=== PATIENT | male | born 1960 | race Caucasian/White ===

== ENCOUNTER 2016-12-31 13:16 | Inpatient (IN) | payer MEDICARE, OTHER ==
[~2016-12-31] VITALS: Ht 188 cm; Wt 98.8 kg
[~2016-12-31 13:16] MED LIST: ASPI81TA82 PO; COLY4000S PO; GLYB5TAB3 PO; LISI-357 PO; PREG25 PO; SERO400T PO; Z.0.WALKERFRONT
[2016-12-31 13:18] VITALS: BP 84/54; PULSE 138; RESP 20; TEMP 97.7; O2SAT 92
[2016-12-31 14:52] VITALS: BP 101/59; PULSE 131; RESP 18; O2SAT 100
--- NOTE | 2016-12-31 14:56 | PD ---
Physical Exam Date Seen by Provider: Dec 31, 2016 Time Seen by Provider: 14:53 Narrative 56 YOWM C/O NO VOIDING URINE OR STOOL FOR 2 DAYS. NO ABD PAIN. NO F/C. INCREASED HR AND LOW BP. AWAITING BED PLACEMENT Data Data Last Documented VS Vital Signs Date Time Temp Pulse Resp B/P Pulse Ox O2 Delivery O2 Flow Rate FiO2 12/31/16 13:18 97.7 138 20 84/54 92 Room Air [facility] Medical Record Reviewed: Yes Supervised Visit with KENDRICK: Yes Christopher Ochoa Dec 31, 2016 14:56
[2016-12-31 19:44] VITALS: BP 131/75; PULSE 126; RESP 20; TEMP 98.4; O2SAT 95
[2016-12-31] MEDS ORDERED: SODIUM CHLOR 0.9% 1000 ML INJ 1,000 ML IV ONE ×2 (19:45→21:00)
--- NOTE | 2016-12-31 19:47 | RADRPT ---
EXAM DATE/TIME: 12/31/2016 19:25 [facility] COMPARISON: ABDOMEN FLAT & UPRIGHT, June 01, 2016, 14:43. INDICATIONS : Constipation, obstruction. MEDICAL HISTORY : None. SURGICAL HISTORY : Splenectomy. ENCOUNTER: Initial ACUITY: 3 days PAIN SCORE: 0/10 LOCATION: Bilateral abdomen. FINDINGS: The bowel gas is nonspecific. There are no signs of obstruction or free air for technique. No defini te calcified stones are identified for technique. Moderate stool is present throughout the colon. The re are old healed rib fractures bilaterally. CONCLUSION: Unremarkable study except for stool. Lela Stephens MD on December 31, 2016 at 19:44 Board Certified Radiologist. This report was verified electronically.
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
--- NOTE | 2016-12-31 20:10 | RADRPT ---
EXAM DATE/TIME: 12/31/2016 19:41 [facility] COMPARISON: CHEST SINGLE AP, May 26, 2016, 20:21. INDICATIONS : Free air MEDICAL HISTORY : Hypertension. Diabetes mellitus type II. SURGICAL HISTORY : None. ENCOUNTER: Initial ACUITY: 4 - 6 days PAIN SCORE: 4/10 LOCATION: chest FINDINGS: The lungs are clear without infiltrate, nodule, or mass except for slight atelectasis in the left iker g base. There is no appreciable pleural effusion for technique. Heart and mediastinum are unremarka ble. There are old healed rib fractures in the left chest. CONCLUSION: Slight linear atelectasis left lung base. Lela Stephens MD on December 31, 2016 at 20:08 Board Certified Radiologist. This report was verified electronically.
[2016-12-31 20:17] VITALS: O2SAT 98
[2016-12-31 20:25] LABS: AUTOMATED NEUTROPHIL # 6.4 TH/MM3 (1.8-7.7); BASOPHIL # 0.1 TH/MM3 (0-0.2); BASOPHIL % 0.5 % (0.0-2.0); EOSINOPHIL # 0.5 TH/MM3 (0-0.4); EOSINOPHIL % 4.8 % (0.0-4.0); HEMO FLAGS DIFF FINAL; LYMPH % 22.5 % (9.0-44.0); LYMPHOCYTE # 2.3 TH/MM3 (1.0-4.8); MEAN CELL VOLUME 98.7 FL (80.0-100.0); MEAN CORPUSCULAR HGB CONC 35.5 % (32.0-36.0); MONO % 10.1 % (0.0-8.0); NEUT % 62.1 % (16.0-70.0); PLATELET COUNT 255 TH/MM3 (150-450); RED BLOOD COUNT 3.35 MIL/MM3 (4.50-5.90); RED CELL DISTRIBUTION WIDTH 13.4 % (11.6-17.2); WHITE BLOOD COUNT 10.3 TH/MM3 (4.0-11.0)
[2016-12-31 20:36] LABS: BLOOD, URINE NEG (NEG); COMMENT (UR) CULT NOT INDICATED; CULTURE IF INDICATED CULT NOT INDICATED; GLUCOSE,URINE 70 mg/dL (NEG); KETONE, URINE NEG (NEG); NITRITE,URINE NEG (NEG); SQUAMOUS EPITHELIAL CELL URINE <1 /hpf (0-5); URINE COLOR YELLOW (YELLW/STRAW)
[2016-12-31 20:47] LABS: APTT (PATIENT) 33.1 SEC (24.3-30.1); PROTHROMBIN TIME - PATIENT 10.5 SEC (9.8-11.6)
[2016-12-31 20:53] LABS: ANION GAP 14 MEQ/L (5-15); AST (GOT) 30 U/L (15-37); BICARBONATE 22.9 MEQ/L (21.0-32.0); BLOOD UREA NITROGEN 35 MG/DL (7-18); CHLORIDE 94 MEQ/L (98-107); GLOMERULAR FILTRATION RATE 13 ML/MIN (>89); MAGNESIUM 1.8 MG/DL (1.5-2.5); POTASSIUM 4.3 MEQ/L (3.5-5.1); SODIUM (NA) 131 MEQ/L (136-145)
[2016-12-31 21:08] LABS: ALKALINE PHOSPHATASE 99 U/L (45-117); ALT (GPT) 26 U/L (12-78); CREATINE KINASE 1147 U/L (39-308); TOTAL BILIRUBIN ADULT 0.4 MG/DL (0.2-1.0)
[2016-12-31 21:21] LABS: CKMB 20.6 NG/ML (0.5-3.6)
[2016-12-31] MEDS ORDERED: JANU50TA8 PO (21:39)
[2016-12-31] MEDS ORDERED: ASPI1TAB69 PO (21:39)
[2016-12-31] MEDS ORDERED: MORP1CAP64 PO (21:39)
[2016-12-31] MEDS ORDERED: PREG300 PO (21:39)
[2016-12-31] MEDS ORDERED: GLYB5TAB3 PO (21:39)
[2016-12-31] MEDS ORDERED: OXYC30TA PO (21:39)
[2016-12-31] MEDS ORDERED: MIRA33504 PO (21:39)
[2016-12-31] MEDS ORDERED: LISI-519 PO (21:39)
[2016-12-31] MEDS ORDERED: NALOXONE HCL 0.4 MG/ML AMP IV PRN (21:45)
[2016-12-31] MEDS ORDERED: SODIUM CHLORIDE 0.9% FLUSH 10 ML FLUSH IV FLUSH PRN (21:45)
[2016-12-31] MEDS: SODIUM CHLOR 0.9% 1000 ML INJ 1,000 ML IV SCH (22:00)
[2016-12-31 22:13] LABS: LACTIC ACID GHOST NOT REPORTABLE
--- NOTE | 2016-12-31 23:28 | RADRPT ---
EXAM DATE/TIME: 12/31/2016 22:46 [facility] COMPARISON: No previous studies available for comparison. INDICATIONS : Unable to urinate for two days ORAL CONTRAST: No oral contrast ingested. RADIATION DOSE: 12.02 CTDIvol (mGy) MEDICAL HISTORY : Cardiovascular disease. Diabetes mellitus type 2. Gastroesophageal reflux disease. SURGICAL HISTORY : Splenectomy. ENCOUNTER: Initial ACUITY: 2 days PAIN SCALE: 8/10 LOCATION: Bilateral flank TECHNIQUE: Volumetric scanning of the abdomen and pelvis was performed. Using automated exposure control and ad justment of the mA and/or kV according to patient size, radiation dose was kept as low as reasonably achievable to obtain optimal diagnostic quality images. FINDINGS: LOWER LUNGS: Mild linear atelectasis within the lung bases. No infiltrate or effusion. LIVER: Homogeneous density without lesion. There is no dilation of the biliary tree. This suspected solitar y calcified gallstone is seen. No dilatation of the gallbladder. No pericholecystic fluid. SPLEEN: The spleen is surgically absent. PANCREAS: The pancreatic head and adjacent body normal. The tail is felt surgically absent. KIDNEYS: Normal in size and shape. There is no mass, stone, or hydronephrosis. ADRENAL GLANDS: There is a 4.2 cm fat containing mass involving the left adrenal gland. Right adrenal gland is normal . VASCULAR: There is no aortic aneurysm. BOWEL/MESENTERY: The stomach, small bowel, and colon demonstrate no acute abnormality. There is no free intraperitone al air or fluid. Scattered colonic diverticuli without acute inflammation. ABDOMINAL WALL: Within normal limits. RETROPERITONEUM: There is no lymphadenopathy. BLADDER: No wall thickening or mass. REPRODUCTIVE: Within normal limits. INGUINAL: There is no lymphadenopathy or hernia. MUSCULOSKELETAL: An intramedullary raquel is partially seen involving the right femur. CONCLUSION: 1. No acute abnormality to explain the patient's pain. 2. Colonic diverticulosis. No acute inflammation. 3. Suspected small calcified gallstone. The gallbladder is nondilated. 4. 4.2 cm left adrenal gland adenoma. Issa Wills Jr., MD on December 31, 2016 at 23:21 Board Certified Radiologist. This report was verified electronically.
[2017-01-01] VITALS (11 sets, daily range): BP systolic 98–127; BP diastolic 58–83; PULSE 68–137; RESP 18–24; TEMP 98–99.8; O2SAT 90–98
[2017-01-01 02:35] LABS: AUTOMATED NEUTROPHIL # 7.5 TH/MM3 (1.8-7.7); BASOPHIL # 0.1 TH/MM3 (0-0.2); BASOPHIL % 0.5 % (0.0-2.0); EOSINOPHIL # 0.5 TH/MM3 (0-0.4); EOSINOPHIL % 4.2 % (0.0-4.0); HEMATOCRIT 33.3 % (39.0-51.0); HEMO FLAGS DIFF FINAL; LYMPH % 24.9 % (9.0-44.0); LYMPHOCYTE # 3.1 TH/MM3 (1.0-4.8); MEAN CELL VOLUME 99.8 FL (80.0-100.0); MONO % 9.7 % (0.0-8.0); NEUT % 60.7 % (16.0-70.0); PLATELET COUNT 239 TH/MM3 (150-450); RED BLOOD COUNT 3.34 MIL/MM3 (4.50-5.90); RED CELL DISTRIBUTION WIDTH 13.5 % (11.6-17.2); WHITE BLOOD COUNT 12.4 TH/MM3 (4.0-11.0)
[2017-01-01 02:58] LABS: BICARBONATE 23.8 MEQ/L (21.0-32.0); POTASSIUM 4.4 MEQ/L (3.5-5.1)
[2017-01-01 03:16] LABS: CKMB 14.1 NG/ML (0.5-3.6)
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
[2017-01-01] MEDS: CEFEPIME INJ 2,000 MG in SODIUM CHLORIDE 0.9% INJ 100 ML IV SCH ×2 (05:29→16:07)
--- NOTE | 2017-01-01 05:33 | RADRPT ---
EXAM DATE/TIME: 01/01/2017 04:49 [facility] COMPARISON: FOOT LEFT COMPLETE ([id number]), February 07, 2016, 19:14. INDICATIONS : Left foot pain and swelling. MEDICAL HISTORY : Diabetes mellitus type II. SURGICAL HISTORY : None. ENCOUNTER: Initial ACUITY: 3 days PAIN SCORE: 4/10 LOCATION: Left foot. FINDINGS: 3 views of the foot show prior amputation involving the middle and distal phalanges of the second toe . No fracture or dislocation. No cortical destruction. Soft tissues are unremarkable with exception o f calcified atherosclerotic plaque. CONCLUSION: No acute abnormality. Prior left toe amputation. Issa Wills Jr., MD on January 01, 2017 at 5:30 Board Certified Radiologist. This report was verified electronically.
[2017-01-01] MEDS ORDERED: GLUCAGON 1 MG/ML VIAL OTHER PRN (06:30)
[2017-01-01] MEDS ORDERED: DEXTROSE 50% IN WATER 50 ML VIAL(D50) IV PUSH PRN (06:30)
[2017-01-01] MEDS: SODIUM CHLORIDE 0.9% FLUSH 10 ML FLUSH IV FLUSH SCH ×2 (07:59→21:00)
[2017-01-01] MEDS: SODIUM CHLOR 0.9% 1000 ML INJ 1,000 ML IV SCH ×2 (07:59→11:14)
[2017-01-01] MEDS: ASPIRIN EC 81 MG TABEC PO SCH (07:59)
[2017-01-01] MEDS ORDERED: PREGABALIN 100 MG CAP PO SCH (09:00)
[2017-01-01] MEDS ORDERED: LISINOPRIL 5 MG TAB PO SCH (09:00)
[2017-01-01] MEDS: PREGABALIN 100 MG CAP PO SCH (10:33)
--- NOTE | 2017-01-01 10:51 | EKG ---
Date Performed: 12/31/2016 Time Performed: 19:49:24 PTAGE: 56 years EKG: SINUS TACHYCARDIA NONSPECIFIC T-WAVE ABNORMALITY Compared to prior tracing, the patient is now tachycardic. ABNORMAL ECG PREVIOUS TRACING : 05/26/2016 21.00 DOCTOR: Joana Ramirez Interpretating Date/Time 01/01/2017 10:46:33
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
[2017-01-01 11:09] LABS: CKMB 5.7 NG/ML (0.5-3.6)
[2017-01-01] MEDS: TAMSULOSIN HCL 0.4 MG CAP PO SCH (11:13)
--- NOTE | 2017-01-01 11:56 | HHI.PR ---
Addendum to Inpatient Note Addendum Reason: Additional Documentation Additional Information Patient states he feels better, denies chest pain, shortness of breath. Patient has had a low-grade temp of 99.8. Nurse states the patient's oxygen saturation goes down into the 80s when not on oxygen. On exam patient is awake and oriented 3, nonacute distress. Lungs are clear to auscultation bilaterally , S1 and S2 present with regular rate and rhythm, no murmur, rubs or Gallops. Left foot looks more swollen when compared to the right foot. There is a puncture wound on the left heel which at the moment is not draining any pus. Assessment and plan. 1. Sepsis: Patient with tachycardia and leukocytosis of 12.4 and a temp of 99.8 , puncture wound on the left heel which has been reportedly draining. Follow- up wound culture which is pending, blood cultures negative 1 Source most likely left foot. ID consulted. Follow-up recommendations. 2. Left heel wound. Consult wound care. Podiatry consulted. Follow-up recommendations. I will order a left foot MRI to rule out osteomyelitis. 3. Rhabdomyolysis: CK improving and trending down, continue IV fluids. 4. Hyponatremia: Likely hypovolemic hyponatremia sodium 131, trending up to 134. Continue IV normal saline. 5. Acute kidney injury: Possibly a combination of postobstructive and due to rhabdomyolysis, creatinine is trending up from 4.86-5.06, continue IV fluid administration. Continue to monitor BUN/creatinine. Continue Chamorro catheter. 6. Low-grade Fever: Patient had a MAXIMUM TEMPERATURE of 99.8. Will Rx Tylenol. 7. Hypoxemia: Chest x-ray on admission showed a slight linear atelectasis of the left lung base. Supplemental oxygen to keep oxygen saturation 92%. If hypoxemia continues then will order a VQ scan. 8. Lactic acidosis: Lactic acid 2.8 and elevated on admission. I'll trending down. Continue IV fluids. 9. Acute urinary retention: Appreciate urology consultation. Continue Chamorro catheter and will start voiding trials once creatinine is back to normal. 10. Left leg swelling: I will check venous Doppler of the left lower extremity to rule out DVT. Nathaniel Yo MD Jan 01, 2017 11:56
[2017-01-01] MEDS: HEPARIN SODIUM - SQ 10,000 UNITS/ML VIAL SQ SCH ×2 (13:44→21:27)
--- NOTE | 2017-01-01 14:44 | RADRPT ---
EXAM DATE/TIME: 01/01/2017 13:26 [facility] COMPARISON: No previous studies available for comparison. INDICATIONS : Left leg swelling. MEDICAL HISTORY : Hypertension. Gastroesophageal reflux disease. Neuropathy. Urinary retention. Arthritis. Diabetes . PTSD. SURGICAL HISTORY : Splenectomy. Mandible surgery. Chest tube. Right leg surgery. Right wrist surgery. Left knee surge ry. Neck surgery. Bilateral ankle surgery. ENCOUNTER: Initial ACUITY: 1 day PAIN SCORE: 0/10 LOCATION: Left TECHNIQUE: Venous ultrasound of the leg was performed from the inguinal ligament to the proximal calf. Real-woo e, color Doppler and spectral tracing, compression and augmentation techniques were used. FINDINGS: There is normal compressibility of the deep venous system from the inguinal region to the proximal ca lf. No echogenic clot is seen in the lumen of the common femoral, femoral, popliteal, and posterior tibial veins. There is a normal response of the venous system to proximal and distal augmentation an d respiration. CONCLUSION: Normal examination. Pk Ricks MD on January 01, 2017 at 14:42 Board Certified Radiologist. This report was verified electronically.
[2017-01-01] MEDS: COLLAGENASE OINT 30 GM TUBE TOPICAL SCH (19:15)
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
--- NOTE | 2017-01-01 20:48 | MB ---
cc: CHANTAL MELENDEZ DPM DATE OF CONSULTATION 01/01/17 CHIEF COMPLAINT Left heel ulceration HISTORY OF PRESENT ILLNESS Mr. Israel is a pleasant 56-year-old diabetic male patient. He is admitted to the ER at [facility] this morning for the foot wound. He states that it started at about seven weeks ago. He was on antibiotics for two weeks and just finished them two days ago but notes increase drainage. He states that he sees Dr. Francis Leblanc who has debrided the area and gotten the wound much smaller, but it has not ever been completely healed since it began. The patient admits that he has difficulty avoid putting weight on it. She also admits to having difficulty controlling his glucose levels. He denies any nausea, vomiting, fever, headaches or chills. PAST MEDICAL HISTORY 1. Diabetes, 2. Hypertension, 3. COPD, 4. History of psychiatric disorder 5. History of alcohol abuse. PAST SURGICAL HISTORY 1. Splenectomy 2. Mandible surgery 3. Orthopedic surgery to the right leg, right wrist, left knee and neck. 4. Collapsed lung. MEDICATIONS Please see list. ALLERGIES TORADOL. FAMILY HISTORY Noncontributory SOCIAL HISTORY The patient smokes a half pack of cigarettes per day and drinks 2-3 alcoholic drinks per day. Denies any illicit drug abuse and states that he rents a house with a friend. VITAL SIGNS: Temperature is 98.0, pulse 110, blood pressure 107/58, pulse ox 98% O2 on room air. LABORATORY DATA White count is 12.4, hemoglobin 11.7, hematocrit 33.3, platelets 239. INR 1.0. Chemistry - Sodium is 134, potassium 4.4, chloride 100, carbon dioxide 23.8, BUN 38, creatinine 5.06, glucose 131. Wound cultures is pending. Blood culture is pending. IMAGING STUDIES X-rays did not show any gas in the soft tissue or signs of cortical erosion at the calcaneus. MRI is pending. PHYSICAL EXAMINATION On physical exam, the patient does have palpable pulses. Cap fill time less than 3 seconds. Gross sensation is impaired. Biomechanics are unremarkable. Right foot is unremarkable. Left posterior plantar heel has a wound of approximately 0.8 cm x 0.8 cm x 0.4 cm. No exposed bone. Hypertrophic borders, fibro granular base. No active drainage. No malodor. ASSESSMENT/PLAN 1. Left foot chronic ulceration 2. MRI pending to rule out osteomyelitis. 3. Wound cultures pending. 4. Daily dressing changes with Santyl ordered. 5. Physical therapy ordered to help reduce weightbearing pressure to the area 6. I have little suspicion for osteomyelitis at this time. I do not suspect patient will need any surgical intervention. However, we will follow the MRI and cultures closely. Thank you for this consultation. Chantal ALAS/ /7:02 PM /8:36 PM FERNIE
[2017-01-01] MEDS ORDERED: LORazepam 2 MG TAB PO PRN (22:30)
[2017-01-01] MEDS ORDERED: FLUMAZENIL 0.5 MG/5 ML VIAL IV PUSH PRN (22:30)
[2017-01-01] MEDS ORDERED: LORazepam 2 MG/ML VIAL IV PUSH PRN ×3 (22:30)
[2017-01-01] MEDS ORDERED: LORazepam 1 MG TAB PO PRN (22:30)
[2017-01-01] MEDS: LORazepam 2 MG/ML VIAL IV PUSH PRN (22:59)
--- NOTE | 2017-01-01 23:17 | RADRPT ---
EXAM DATE/TIME: 01/01/2017 20:03 [facility] COMPARISON: MRI FOOT LEFT W & W/O CONTRAST, February 08, 2016, 9:23. FOOT LEFT COMPLETE ([id number]), January 01, 2017, 4: 49. INDICATIONS : Osteomyelitis. Left heel ulcer for 7 months. MEDICAL HISTORY : Diabetes mellitus type 2. Renal insufficiency. SURGICAL HISTORY : Yogesh in right femur. ENCOUNTER: [facility] ACUITY: 7-11 months PAIN SCORE: 4/10 LOCATION: Left heel. TECHNIQUE: Multiplanar, multisequence MRI examination was performed without contrast. FINDINGS: There is subcutaneous soft tissue edema about the medial and lateral aspect of the ankle extending to the dorsum of the forefoot and superficial to the Achilles tendon. No drainable fluid collections s een. There is T1 and T2 prolongation in the distal 4th metatarsus involving the metaphysis and epiph ysis. No surrounding soft tissue edema, but there is some soft tissue thickening about the metatarsa l phalangeal joint. No signal abnormality seen in the marrow of the other osseous structures.. No a bnormal signal within the substance of the Achilles tendon or the medial or lateral ankle tendons. CONCLUSION: 1. Prominent subcutaneous soft tissue edema about the foot and ankle. 2. Abnormal signal in the distal metatarsal head of the 4th digit, characterized by T1 and T2 prolong ation. Differential considerations include healing fracture and osteomyelitis. 3. Probable Aburto's neuroma in the interspace between the distal 2nd and 3rd metatarsal bones. Issa Christiansen MD on January 01, 2017 at 23:08 Board Certified Radiologist. This report was verified electronically.
--- NOTE | 2017-01-01 23:19 | RADRPT ---
EXAM DATE/TIME: 01/01/2017 20:03 [facility] COMPARISON: No previous studies available for comparison. INDICATIONS : Osteomyelitis. Left heel ulcer for 7 months. MEDICAL HISTORY : Diabetes mellitus type 2. Renal insufficiency. SURGICAL HISTORY : Yogesh in right femur. ENCOUNTER: [facility] ACUITY: 7-11 months PAIN SCORE: 4/10 LOCATION: Left leg. TECHNIQUE: Multiplanar multisequence MRI examination of the lower leg was performed without contrast. FINDINGS: There is mild soft tissue edema in the subcutaneous tissues of the distal one third of the leg. No a bnormal signal within the muscles of the leg. Normal signal in the marrow of the tibia and fibula. CONCLUSION: Subcutaneous soft tissue edema distal leg. No evidence of osteomyelitis of the tibia or fibula. Issa Christiansen MD on January 01, 2017 at 23:16 Board Certified Radiologist. This report was verified electronically.
[2017-01-02] VITALS (10 sets, daily range): BP systolic 81–129; BP diastolic 53–71; PULSE 105–133; RESP 14–22; TEMP 99.3–101.8; O2SAT 90–100
[2017-01-02] MEDS: HEPARIN SODIUM - SQ 10,000 UNITS/ML VIAL SQ SCH ×3 (06:35→20:37)
[2017-01-02 07:45] LABS: AUTOMATED NEUTROPHIL # 11.8 TH/MM3 (1.8-7.7); BASOPHIL # 0.1 TH/MM3 (0-0.2); BASOPHIL % 0.4 % (0.0-2.0); EOSINOPHIL % 0.2 % (0.0-4.0); HEMATOCRIT 30.7 % (39.0-51.0); HEMO FLAGS DIFF FINAL; LYMPH % 12.4 % (9.0-44.0); LYMPHOCYTE # 1.8 TH/MM3 (1.0-4.8); MEAN CORPUSCULAR HEMOGLOBIN 34.3 PG (27.0-34.0); MEAN CORPUSCULAR HGB CONC 34.6 % (32.0-36.0); MONO % 6.1 % (0.0-8.0); NEUT % 80.9 % (16.0-70.0); PLATELET COUNT 236 TH/MM3 (150-450); RED CELL DISTRIBUTION WIDTH 13.5 % (11.6-17.2); WHITE BLOOD COUNT 14.6 TH/MM3 (4.0-11.0)
[2017-01-02 08:22] LABS: ALKALINE PHOSPHATASE 82 U/L (45-117); ALT (GPT) 21 U/L (12-78); ANION GAP 11 MEQ/L (5-15); AST (GOT) 38 U/L (15-37); BICARBONATE 20.7 MEQ/L (21.0-32.0); BLOOD UREA NITROGEN 45 MG/DL (7-18); CHLORIDE 101 MEQ/L (98-107); GLOMERULAR FILTRATION RATE 10 ML/MIN (>89); MAGNESIUM 1.8 MG/DL (1.5-2.5); POTASSIUM 5.1 MEQ/L (3.5-5.1); SODIUM (NA) 133 MEQ/L (136-145); TOTAL BILIRUBIN ADULT 0.6 MG/DL (0.2-1.0)
[2017-01-02] MEDS: SODIUM CHLORIDE 0.9% FLUSH 10 ML FLUSH IV FLUSH SCH ×2 (08:25→20:07)
[2017-01-02] MEDS: PREGABALIN 100 MG CAP PO SCH (08:25)
[2017-01-02] MEDS: ASPIRIN EC 81 MG TABEC PO SCH (08:25)
[2017-01-02] MEDS: TAMSULOSIN HCL 0.4 MG CAP PO SCH (08:25)
[2017-01-02] MEDS: SODIUM CHLOR 0.9% 1000 ML INJ 1,000 ML IV SCH ×3 (08:26→21:08)
[2017-01-02] MEDS: COLLAGENASE OINT 30 GM TUBE TOPICAL SCH (08:59)
--- NOTE | 2017-01-02 09:27 | HHI.PR ---
Subjective Patient symptoms today Pt alert and awake; no complaints. Objective Vital Signs Vital Signs Date Time Temp Pulse Resp B/P Pulse Ox O2 Delivery O2 Flow Rate FiO2 01/02/17 08:07 101.8 133 22 115/60 92 01/01/17 20:00 99.4 137 20 125/83 90 01/01/17 18:11 Nasal Cannula 3.00 01/01/17 16:00 98.0 110 18 107/58 98 01/01/17 14:15 94 Nasal Cannula 3.00 01/01/17 12:05 98.9 120 18 98/64 94 Intake & Output 01/02/17 01/02/17 07:00 19:00 Output Total 400 ml Balance -400 ml Output Urine Total 400 ml Result Diagram: 01/02/1771901/02/17719 Objective Remarks Abd:soft,nt,nt Saunders: clear urine Medications and IVs Current Medications Medications (Trade) Dose Ordered Sig/Rip Route Start Time Stop Time Status Last Admin (NS 1000 ml Inj) 1,000 ml @ 100 mls/hr Q10H IV 12/31/16 22:00 01/02/17 08:26 (NS Flush) 2 ml UNSCH PRN IV FLUSH 12/31/16 21:45 (NS Flush) 2 ml BID IV FLUSH 01/01/17 09:00 01/02/17 08:25 (Narcan Inj) 0.4 mg UNSCH PRN IV 12/31/16 21:45 (Ecotrin Ec) 81 mg DAILY PO 01/01/17 09:00 01/02/17 08:25 (Lyrica) 200 mg DAILY PO 01/01/17 09:00 01/02/17 08:25 (D50w (Vial) Inj) 25 ml UNSCH PRN IV PUSH 01/01/17 06:30 (Glucagon Inj) 1 mg UNSCH PRN OTHER 01/01/17 06:30 (Heparin Inj) 5,000 units Q8HR SQ 01/01/17 14:00 01/02/17 06:35 (Flomax) 0.4 mg DAILY PO 01/01/17 11:00 01/02/17 08:25 (Santyl Oint) 1 applic DAILY TOPICAL 01/01/17 19:15 01/02/17 08:59 (Romazicon Inj) 0.2 mg Q1M PRN IV PUSH 01/01/17 22:30 (Ativan) 1 mg Q4H PRN PO 01/01/17 22:30 (Ativan Inj) 1 mg Q4H PRN IV PUSH 01/01/17 22:30 (Ativan) 2 mg Q2H PRN PO 01/01/17 22:30 (Ativan Inj) 2 mg Q2H PRN IV PUSH 01/01/17 22:30 01/01/17 22:59 (Ativan Inj) 2 mg Q1H PRN IV PUSH 01/01/17 22:30 (Ativan Inj) 2 mg Q15M PRN IV PUSH 01/01/17 22:30 Assessment and Plan Assessment and Plan 56-year-old male admitted with urinary retention and acute renal failure. Maintain Saunders catheter for now and continue with IV fluids. We'll start Flomax 0.4 mg by mouth daily at bedtime for mild symptoms of outlet obstruction. Void trial once his creatinine baseline. Thank you for the consult and for allowing me to precipitate in the care this patient. 01/02 56 y.o male admitted with ARF and AUR with rhabdomyolysis Continue IVF ARF worsening with creatine up to 5.6 today Maintain saunders catheter Continue Flomax Void trial after creatinine normalizes Nikko Parsons DO Jan 02, 2017 09:27
[2017-01-02] MEDS: LORazepam 2 MG/ML VIAL IV PUSH PRN ×2 (09:56→13:00)
--- NOTE | 2017-01-02 14:48 | RADRPT ---
EXAM DATE/TIME: 01/02/2017 14:07 [facility] COMPARISON: CT CERVICAL SPINE W/O CONTRAST, May 26, 2016, 22:05. CHEST SINGLE AP, May 26, 2016, 20:21. CH EST SINGLE AP, December 31, 2016, 19:41. FOOT LEFT COMPLETE ([id number]), January 01, 2017, 4:49. INDICATIONS : Fever. MEDICAL HISTORY : Diabetes mellitus type 2. Renal insufficiency. SURGICAL HISTORY : Yogesh in right femur. ENCOUNTER: Subsequent ACUITY: 3 days PAIN SCORE: Non-responsive. LOCATION: Bilateral chest FINDINGS: The heart is enlarged. There is diffuse interstitial edema. Exam would suggest congestive failure. Th e examination also demonstrates prominence of the paratracheal soft tissues bilaterally. Mediastinal adenopathy is not excluded. The osseous structures are grossly intact. CONCLUSION: 1. Cardiomegaly and diffuse interstitial edema suggesting congestive failure. 2. Increasing prominence of the mediastinum. CT imaging of the thorax is warranted for further assess ment. Mauro Gould MD on January 02, 2017 at 14:15 Board Certified Radiologist. This report was verified electronically.
[2017-01-02 15:06] LABS: CKMB 2.6 NG/ML (0.5-3.6)
--- NOTE | 2017-01-02 15:16 | HHI.PR ---
Subjective Remarks Patient is lethargic hard to arouse and confused tachycardic - heart rate in the 130's has fever with a Tmax of 101.8 worsening leukocytosis noted to be coughing Objective Vitals Vital Signs Date Time Temp Pulse Resp B/P Pulse Ox O2 Delivery O2 Flow Rate FiO2 01/02/17 11:21 Room Air 01/02/17 08:07 101.8 133 22 115/60 92 01/01/17 20:00 99.4 137 20 125/83 90 01/01/17 18:11 Nasal Cannula 3.00 01/01/17 16:00 98.0 110 18 107/58 98 I/O 01/01/17 01/01/17 01/01/17 01/02/17 01/02/17 01/02/17 07:00 15:00 23:00 07:00 15:00 23:00 Intake Total 696 ml 480 ml Output Total 725 ml 500 ml 400 ml Balance -29 ml -20 ml -400 ml Intake Oral 240 ml 480 ml IV Total 456 ml Output Urine Total 725 ml 500 ml 400 ml # Bowel Movements 0 1 Result Diagram: 01/02/17 0720 01/02/17 0720 Imaging Last Impressions Chest X-Ray 01/02/17 0000 Signed Impressions: Service Date/Time: Monday, January 02, 2017 14:07 - CONCLUSION: 1. Cardiomegaly and diffuse interstitial edema suggesting congestive failure. 2. Increasing prominence of the mediastinum. CT imaging of the thorax is warranted for further assessment. Mauro Gould MD Lower Extremity Ultrasound 01/01/17 0000 Signed Impressions: Service Date/Time: Sunday, January 01, 2017 13:26 - CONCLUSION: Normal examination. Pk Ricks MD Lower Extremity MRI 01/01/17 0000 Signed Impressions: Service Date/Time: Sunday, January 01, 2017 20:03 - CONCLUSION: Subcutaneous soft tissue edema distal leg. No evidence of osteomyelitis of the tibia or fibula. Issa Christiansen MD Foot X-Ray 01/01/17 0000 Signed Impressions: Service Date/Time: Sunday, January 01, 2017 04:49 - CONCLUSION: No acute abnormality. Prior left toe amputation. Issa Wills Jr., MD Foot MRI 01/01/17 0000 Signed Impressions: Service Date/Time: Sunday, January 01, 2017 20:03 - CONCLUSION: 1. Prominent subcutaneous soft tissue edema about the foot and ankle. 2. Abnormal signal in the distal metatarsal head of the 4th digit, characterized by T1 and T2 prolongation. Differential considerations include healing fracture and osteomyelitis. 3. Probable Aburto's neuroma in the interspace between the distal 2nd and 3rd metatarsal bones. Issa Christiansen MD Abdomen/Pelvis CT 12/31/16 1939 Signed Impressions: Service Date/Time: Saturday, December 31, 2016 22:46 - CONCLUSION: 1. No acute abnormality to explain the patient's pain. 2. Colonic diverticulosis. No acute inflammation. 3. Suspected small calcified gallstone. The gallbladder is nondilated. 4. 4.2 cm left adrenal gland adenoma. Issa Wills Jr., MD Abdomen X-Ray 12/31/16 0000 Signed Impressions: Service Date/Time: Saturday, December 31, 2016 19:25 - CONCLUSION: Unremarkable study except for stool. Lela Stephens MD Objective Remarks GENERAL: Patient is lethargic, moaning, noted to be coughing SKIN: Warm and dry. Mottled appearance. HEAD: Atraumatic. Normocephalic. EYES: Pupils equal and round. No scleral icterus. No injection or drainage. ENT: No nasal bleeding or discharge. Mucous membranes pink and moist. NECK: Trachea midline. No JVD. CARDIOVASCULAR: Tachycardic, no MRG appreciated. RESPIRATORY: No accessory muscle use. Clear to auscultation. Breath sounds equal bilaterally. GASTROINTESTINAL: Abdomen soft, non-tender, nondistended. Hepatic and splenic margins not palpable. MUSCULOSKELETAL: Extremities without clubbing, cyanosis, or edema. No obvious deformities. NEUROLOGICAL: Patient very lethargic, does not follow commands, moves all extremities. PSYCHIATRIC: unable to asses due to lethargy. Medications and IVs Current Medications Medications (Trade) Dose Ordered Sig/Rip Route Start Time Stop Time Status Last Admin (NS Flush) 2 ml UNSCH PRN IV FLUSH 12/31/16 21:45 (NS Flush) 2 ml BID IV FLUSH 01/01/17 09:00 01/02/17 08:25 (Narcan Inj) 0.4 mg UNSCH PRN IV 12/31/16 21:45 (Ecotrin Ec) 81 mg DAILY PO 01/01/17 09:00 01/02/17 08:25 (Lyrica) 200 mg DAILY PO 01/01/17 09:00 01/02/17 08:25 (D50w (Vial) Inj) 25 ml UNSCH PRN IV PUSH 01/01/17 06:30 (Glucagon Inj) 1 mg UNSCH PRN OTHER 01/01/17 06:30 (Heparin Inj) 5,000 units Q8HR SQ 01/01/17 14:00 01/02/17 13:00 (Flomax) 0.4 mg DAILY PO 01/01/17 11:00 01/02/17 08:25 (Santyl Oint) 1 applic DAILY TOPICAL 01/01/17 19:15 01/02/17 08:59 (Romazicon Inj) 0.2 mg Q1M PRN IV PUSH 01/01/17 22:30 (Ativan) 1 mg Q4H PRN PO 01/01/17 22:30 (Ativan Inj) 1 mg Q4H PRN IV PUSH 01/01/17 22:30 (Ativan) 2 mg Q2H PRN PO 01/01/17 22:30 (Ativan Inj) 2 mg Q2H PRN IV PUSH 01/01/17 22:30 01/02/17 13:00 (Ativan Inj) 2 mg Q1H PRN IV PUSH 01/01/17 22:30 (Ativan Inj) 2 mg Q15M PRN IV PUSH 01/01/17 22:30 Urinary Catheter: Yes Assessment to: Continue Chamorro insert reason: Obstruction/Retention Vascular Central Line Catheter: No A/P Problem List: (1) Sepsis ICD Code: A41.9 Status: Acute Plan: Patient presented with tachycardia and leukocytosis of 12.4 and a temperature of 99.8. The patient has a puncture wound on the left heel which is nonhealing and has been reportedly draining. Patients clinical status worsening with encephalopathy, leukocytosis. Check blood cultures which are so far negative 2. Repeat urinalysis which was negative on 12/31/16. Check lactic acid. Repeat chest x-ray shows cardiomegaly and interstitial edema suggesting congestive heart failure and increasing prominence of the mediastinum. CT of the chest has been ordered. Hold normal saline given findings on chest x-ray. I will give IV Bumex. Wound cultures are growing group D enterococcus Discussed with Dr. Zavala who recommended repeating urinalysis. I will start the patient on IV Zosyn given his current condition. (2) Fever ICD Code: R50.9 Status: Acute Plan: Unclear etiology. Possible secondary to left heel wound. Fever could also be possibly caused by a lower respiratory infection/pneumonia. (3) Leukocytosis ICD Code: D72.829 Status: Acute Plan: Likely secondary to sepsis, etiology possibly left heel wound versus a suspected pneumonia with congestive heart failure. WBC worsening (4) Encephalopathy acute ICD Code: G93.40 Status: Acute Plan: Metabolic versus toxic encephalopathy. I will check stat head CT to rule out any intracranial abnormality, check ABG to r/o co2 retention Patient also could possibly be encephalopathic secondary to alcohol withdrawal. (5) Non healing left heel wound ICD Code: S91.302A Status: Acute Plan: ID consulted. Cefepime discontinued yesterday. She had a foot x-ray which showed no acute abnormality and prior left toe amputation. (6) Rhabdomyolysis ICD Code: M62.82 Status: Acute Plan: Likely secondary to crush injury to the left leg. CK improving with IV fluids. Continue to monitor CK. (7) BIMAL (acute kidney injury) ICD Code: N17.9 Status: Acute Plan: Worsening creatinine [id number]. I will consult nephrology for further recommendations. (8) COPD (chronic obstructive pulmonary disease) ICD Code: J44.9 Status: Acute Plan: Seems to be stable. Continue bronchodilators. (9) Urinary retention ICD Code: R33.9 Status: Acute Plan: Neurology consulted. Recommendations appreciated. Continue Chamorro catheter. Recommendations are to start voiding trials once creatinine is back to normal. (10) Left leg swelling ICD Code: M79.89 Status: Acute Plan: Lower extremity ultrasound ruled out DVT. (11) Hyperglycemia due to type 2 diabetes mellitus ICD Code: E11.65 Status: Acute Plan: Blood sugars with acceptable control now. I will place on facet with insulin NovoLog and monitor Accu-Cheks. Check hemoglobin A1c. Assessment and Plan GI prophylaxis: Add PPI. DVT prophylaxis: SCDs, continue heparin subcutaneous. 40 minutes of critical care time was spent on patient care. Discharge Planning Patient will be transferred to intensive care unit. Problem Qualifiers (1) Sepsis: Qualified Code: A41.9 - Sepsis, due to unspecified organism (2) Fever: Qualified Code: R50.9 - Fever, unspecified fever cause (3) Leukocytosis: Qualified Code: D72.829 - Leukocytosis, unspecified type (4) Rhabdomyolysis: Qualified Code: M62.82 - Non-traumatic rhabdomyolysis (5) COPD (chronic obstructive pulmonary disease): (6) Hyperglycemia due to type 2 diabetes mellitus: Qualified Code: E11.65 - Type 2 diabetes mellitus with hyperglycemia, without long-term current use of insulin Nathaniel Yo MD Jan 02, 2017 15:16
[2017-01-02 15:52] LABS: BLOOD GAS BASE EXCESS -6.8 mmol/L (-2-2); BLOOD GAS CARBOXYHEMOGLOBIN 1.7 % (0-4); BLOOD GAS HCO3 18 mmol/L (22-26); BLOOD GAS O2 HGB SATURATION 56 % (90-100); BLOOD GAS OXYGEN CONTENT 8.8 Vol % (12.0-20.0); BLOOD GAS PCO2 34 mmHg (38-42); BLOOD GAS PO2 33 mmHg (61-120); BLOOD GAS TOTAL HGB 11.1 G/DL (12.0-16.0); CRITICAL VALUE YES; TEMP CORR TO 98.6
[2017-01-02 15:53] LABS: DRAW SITE RT RADIAL; FIO2 21 %; NUMBER OF ARTERIAL PUNCTURES 1; STAT YES; ULNAR PULSE PRESENT
[2017-01-02] MEDS ORDERED: SODIUM CHLOR 0.9% 1000 ML INJ 1,000 ML IV SCH (16:00)
[2017-01-02] MEDS ORDERED: BUMETANIDE INJ 1 MG/4 ML VIAL IV PUSH ONE (16:00)
[2017-01-02] MEDS ORDERED: PROPOFOL 1000 MG/100 ML INJ 100 ML ONE (16:15)
[2017-01-02 16:43] LABS: BLOOD GAS BASE EXCESS -7.7 mmol/L (-2-2); BLOOD GAS CARBOXYHEMOGLOBIN 1.5 % (0-4); BLOOD GAS HCO3 18 mmol/L (22-26); BLOOD GAS METHEMOGLOBIN 0.9 % (0-2); BLOOD GAS O2 HGB SATURATION 97 % (90-100); BLOOD GAS OXYGEN CONTENT 14.9 Vol % (12.0-20.0); BLOOD GAS PCO2 45 mmHg (38-42); BLOOD GAS PO2 186 mmHg (61-120); BLOOD GAS TOTAL HGB 10.7 G/DL (12.0-16.0); CRITICAL VALUE YES; FIO2 100 %; OXYGEN DEVICE VENTILATOR
[2017-01-02 16:44] LABS: DRAW SITE ART LINE; STAT NO; ULNAR PULSE PRESENT
[2017-01-02] MEDS ORDERED: ALBUMIN HUMAN 5% 12.5 GM/250 ML BOTTLE IV ONE (17:09)
--- NOTE | 2017-01-02 17:09 | RADRPT ---
EXAM DATE/TIME: 01/02/2017 16:34 [facility] COMPARISON: CHEST SINGLE AP, January 02, 2017, 14:07. INDICATIONS : Central line placement and intubation. MEDICAL HISTORY : Diabetes mellitus type 2. Renal insufficiency. Cardiovascular disease. SURGICAL HISTORY : None. ENCOUNTER: Subsequent ACUITY: 1 day PAIN SCORE: Non-responsive. LOCATION: Bilateral chest FINDINGS: There has been interval intubation. Endotracheal tube tip is 6-7 cm above the sandy. A nasogastric t ube descends in the stomach. A left neck central line is present with tip extending to the age are ca jonnathan junction level. There is no evidence of pneumothorax or other calcification line placement. There has been slight improvement in aeration with decrease in confluence of diffuse bilateral airspace di sease and slight improvement in lung volumes post intubation. Cardiac contours are grossly stable. CONCLUSION: Satisfactory support line and tube positioning. Slight improvement in aeration. Pk Ricks MD on January 02, 2017 at 17:06 Board Certified Radiologist. This report was verified electronically.
[2017-01-02] MEDS ORDERED: ALBUMIN HUMAN 5% 25 GM/500 ML BOTTLE IV ONE (17:15)
[2017-01-02 17:31] LABS: AUTOMATED NEUTROPHIL # 9.8 TH/MM3 (1.8-7.7); BASOPHIL % 0.3 % (0.0-2.0); EOSINOPHIL % 0.2 % (0.0-4.0); HEMATOCRIT 28.5 % (39.0-51.0); HEMO FLAGS DIFF FINAL; LYMPHOCYTE # 0.9 TH/MM3 (1.0-4.8); MEAN CELL VOLUME 98.7 FL (80.0-100.0); MEAN CORPUSCULAR HEMOGLOBIN 34.1 PG (27.0-34.0); MEAN CORPUSCULAR HGB CONC 34.5 % (32.0-36.0); NEUT % 84.5 % (16.0-70.0); PLATELET COUNT 231 TH/MM3 (150-450); RED BLOOD COUNT 2.89 MIL/MM3 (4.50-5.90); RED CELL DISTRIBUTION WIDTH 13.3 % (11.6-17.2); WHITE BLOOD COUNT 11.6 TH/MM3 (4.0-11.0)
[2017-01-02 17:44] LABS: PROTHROMBIN TIME - PATIENT 11.3 SEC (9.8-11.6)
[2017-01-02 17:50] LABS: ALT (GPT) 41 U/L (12-78); ANION GAP 10 MEQ/L (5-15); AST (GOT) 74 U/L (15-37); BLOOD UREA NITROGEN 44 MG/DL (7-18); CHLORIDE 102 MEQ/L (98-107); GLOMERULAR FILTRATION RATE 13 ML/MIN (>89); MAGNESIUM 1.7 MG/DL (1.5-2.5); POTASSIUM 5.1 MEQ/L (3.5-5.1); SODIUM (NA) 134 MEQ/L (136-145)
[2017-01-02 17:53] LABS: ALKALINE PHOSPHATASE 78 U/L (45-117); TOTAL BILIRUBIN ADULT 0.6 MG/DL (0.2-1.0)
[2017-01-02 17:54] LABS: LACTIC ACID GHOST NOT REPORTABLE
[2017-01-02] MEDS ORDERED: VANCOMYCIN INJ 1,500 MG in SODIUM CHLORID 0.9% 500 ML INJ 500 ML IV ONE (18:00)
[2017-01-02 18:06] LABS: CKMB 1.4 NG/ML (0.5-3.6)
[2017-01-02] MEDS ORDERED: DEXTROSE 50% IN WATER 50 ML VIAL(D50) IV PUSH PRN (18:30)
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
[2017-01-02 18:45] LABS: BACTERIA, URINE RARE /hpf; BLOOD, URINE MOD (NEG); GLUCOSE,URINE TRACE mg/dL (NEG); KETONE, URINE 10 mg/dL (NEG); NITRITE,URINE NEG (NEG); PH, URINE 5.5 (5.0-8.5); SQUAMOUS EPITHELIAL CELL URINE <1 /hpf (0-5); URINE COLOR YELLOW (YELLW/STRAW)
[2017-01-02] MEDS ORDERED: RESP: ALBUTEROL 2.5 MG/IPRATROPIUM 0.5 MG NEB (PRN) INH (18:45)
[2017-01-02 18:46] LABS: COMMENT (UR) CATH-CULTURE IND; CULTURE IF INDICATED CATH CULTURE IND
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
[2017-01-02] MEDS ORDERED: MIDAZOLAM HCL 5 MG/ML VIAL (1 ML) IV ONE (19:00)
[2017-01-02] MEDS ORDERED: ROCURONIUM INJ 50 MG/5 ML VIAL IV ONE (19:00)
[2017-01-02] MEDS ORDERED: TERBUTALINE INJ 1 MG/ML AMP SQ PRN (19:00)
--- NOTE | 2017-01-02 19:00 | PD.PROCEDR ---
Procedure Note Procedure Endotracheal Intubation Diagnosis: Septic shock Indications:. Hypoxic respiratory failure Consent: Consent is deemed emergent or medically necessary Anesthesia: Versed 10 mg IV, Rocuronium the 100 mg IV Description of the Procedure: The patient was positioned in the sniffing position. Pre-oxygenation was performed using a [id number]. Anesthesia was induced via rapid sequence. A Oneill #2 was used for laryngoscopy and a Grade I view was obtained. A 8.5 cuffed endotracheal tube was inserted atraumatically through the vocal cords. Confirmation of correct endotracheal tube placement was made by equal and bilateral breath sounds and colorimetric CO2 detection. The endotracheal tube was secured at 24 cm at the teeth. There were no immediate complications noted. The patient remained hemodynamically stable throughout the procedure. A chest x-ray has been ordered. I personally performed the procedure. Al Mendieta MD Jan 02, 2017 19:00
--- NOTE | 2017-01-02 19:03 | PD.PROCEDR ---
Procedure Note Procedure Procedure: Arterial Line Placement Radial arterial line Diagnosis: Septic shock Indications: Need for serial arterial blood gas sampling Consent: Consent is deemed emergent or medically necessary Description of the Procedure: The left wrist was prepped and draped sterilely. 1% lidocaine was used for local anesthesia. The pulse was located and a needle was advanced into the artery. A 20 gauge, 12 cm catheter was advanced into the artery using a modified Seldinger technique. The catheter was sutured to the skin and a sterile dressing was applied. The catheter was connected to a pressure transducer and an arterial waveform was noted. There were no immediate complications noted. There was minimal EBL. I personally performed the procedure. Al Mendieta MD Jan 02, 2017 19:03
--- NOTE | 2017-01-02 19:04 | PD.PROCEDR ---
Procedure Note Procedure Central Line Procedure Note Left IJ triple lumen catheter Diagnosis: Septic shock Indications: For highly potent vasoactive substances. Need for central pressure monitoring. Consent: Consent is deemed emergent or medically necessary Anesthesia: Propofol IV Description of the Procedure: The patient was placed in the supine, mild- Trendelenburg position. The area was prepped and draped sterilely. A 19g needle was inserted under negative pressure aspiration and dark venous blood was obtained. The needle was transduced and a falling column of dark blood was observed. A guidewire was inserted easily without resistance. A small incision was made using a #11 blade. Using a modified Seldinger technique, the dilator and 7 Mongolian, 20 cm catheter were advanced over the guidewire without resistance. All ports were aspirated and flushed, and had brisk blood return. The line was secured at 20 cm at the skin using 2-0 silk interrupted sutures. A Biopatch and Transparent sterile dressing were applied. There were no immediate complications noted. There was minimal EBL. The patient tolerated the procedure well. A Chest x-ray has been ordered. I personally performed the procedure. Al Mendieta MD Jan 02, 2017 19:04
[2017-01-02 19:45] LABS: ANION GAP 11 MEQ/L (5-15); AST (GOT) 65 U/L (15-37); BICARBONATE 20.9 MEQ/L (21.0-32.0); BLOOD UREA NITROGEN 44 MG/DL (7-18); CHLORIDE 102 MEQ/L (98-107); GLOMERULAR FILTRATION RATE 13 ML/MIN (>89); POTASSIUM 5.1 MEQ/L (3.5-5.1); SODIUM (NA) 134 MEQ/L (136-145)
[2017-01-02 19:48] LABS: ALKALINE PHOSPHATASE 78 U/L (45-117); ALT (GPT) 41 U/L (12-78); TOTAL BILIRUBIN ADULT 0.8 MG/DL (0.2-1.0)
[2017-01-02] MEDS: PANTOPRAZOLE SODIUM 40 MG VIAL IV PUSH SCH (20:00)
[2017-01-02] MEDS ORDERED: MULTIVITAMIN INJ 10 ML, THIAMINE INJ 100 MG, FOLIC ACID INJ 1 MG in SODIUM CHLOR 0.45% ... IV ONE (20:00)
[2017-01-02] MEDS: CHLORHEXIDINE 0.12% (ORAL KIT) 15 ML CUP MT SCH (20:00)
[2017-01-02] MEDS: THIAMINE INJ 100 MG in SODIUM CHLORIDE 0.9% INJ 100 ML IV SCH (20:36)
[2017-01-02] MEDS: NOREPINEPHRINE-DEXTROSE DRIP 250 ML IV SCH (20:36)
[2017-01-02] MEDS: MICAFUNGIN INJ 150 MG in SODIUM CHLORIDE 0.9% INJ 100 ML IV SCH (20:37)
[2017-01-02] MEDS: PIPERACIL-TAZO 2.25 GM PREMIX 50 ML IV SCH ×2 (20:37→23:31)
[2017-01-02] MEDS: PROPOFOL 1000 MG/100 ML INJ 100 ML IV SCH (20:38)
[2017-01-02] MEDS: RESP: ALBUTEROL 2.5 MG/IPRATROPIUM 0.5 MG NEB (SCH) INH (21:13)
[2017-01-02] MEDS ORDERED: CHLORHEXIDINE GLUCONATE 2 % 1 PACK (2 CLOTHS)(extra cloths) TOPICAL PRN (21:45)
--- NOTE | 2017-01-02 22:34 | RADRPT ---
EXAM DATE/TIME: 01/02/2017 22:08 [facility] COMPARISON: CT BRAIN W/O CONTRAST, May 26, 2016, 22:05. INDICATIONS : Altered mental status. RADIATION DOSE: 69.15 CTDIvol (mGy) MEDICAL HISTORY : Cardiovascular disease. Hypertension. SURGICAL HISTORY : None. ENCOUNTER: Initial ACUITY: 1 day PAIN SCALE: 0/10 LOCATION: cranial TECHNIQUE: Multiple contiguous axial images were obtained of the head. Using automated exposure control and adj ustment of the mA and/or kV according to patient size, radiation dose was kept as low as reasonably a chievable to obtain optimal diagnostic quality images. FINDINGS: CEREBRUM: The ventricles are normal for age. No evidence of midline shift, mass lesion, hemorrhage or acute in farction. No extra-axial fluid collections are seen. POSTERIOR FOSSA: The cerebellum and brainstem are intact. The 4th ventricle is midline. The cerebellopontine angle i s unremarkable. EXTRACRANIAL: The visualized portion of the orbits is intact. SKULL: The calvaria is intact. No evidence of skull fracture. CONCLUSION: Normal examination for a patient of this age. No significant change has occurred. Christopher Lagos MD on January 02, 2017 at 22:31 Board Certified Radiologist. This report was verified electronically.
--- NOTE | 2017-01-02 22:38 | RADRPT ---
EXAM DATE/TIME: 01/02/2017 22:10 [facility] COMPARISON: CT ABDOMEN & PELVIS W/O CONTRAST, December 31, 2016, 22:46. INDICATIONS : Tachypnea RADIATION DOSE: 9.82 CTDIvol (mGy) MEDICAL HISTORY : Cardiovascular disease. Hypertension. SURGICAL HISTORY : None. ENCOUNTER: Initial ACUITY: 1 day PAIN SCALE: 0/10 LOCATION: chest TECHNIQUE: Volumetric scanning of the chest was performed. Using automated exposure control and adjustment of t he mA and/or kV according to patient size, radiation dose was kept as low as reasonably achievable to obtain optimal diagnostic quality images. FINDINGS: There is diffuse airspace disease in both lungs which has worsened acutely over the last several days when correlation is made with recent chest radiographs. The air space disease a combination of groun dglass opacity and consolidation with air bronchograms. The disease is worse in the perihilar regions with some peripheral sparing. Findings are nonspecific. Differential diagnosis includes developing d iffuse alveolar damage/ARDS. There may also be a component of edema or infection. Endotracheal tube is in satisfactory position. NG is coiled in the stomach. Left central line tip is in superior vena cava. Mild coronary calcifications. No acute findings in the upper abdomen. Fatty le ft adrenal mass. CONCLUSION: 1. Acute development of bilateral airspace disease as above with some peripheral sparing, especially at the bases. Findings nonspecific. Patient may be developing ARDS/diffuse alveolar damage. Other con siderations include infection and severe hypersensitivity type reaction. 2. Endotracheal tube, nasogastric tube and left central line in satisfactory position. Christopher Lagos MD on January 02, 2017 at 22:33 Board Certified Radiologist. This report was verified electronically.
[2017-01-02] MEDS: CHLORHEXIDINE GLUCONATE 2 % 1 PACK (2 CLOTHS)(taper/protocol) TOPICAL SCH (22:54)
[2017-01-02] MEDS: INSULIN NovoLIN REGULAR SUPPLEMENTAL SCALE SQ SCH (23:31)
[2017-01-03] VITALS (18 sets, daily range): BP systolic 80–143; BP diastolic 59–78; PULSE 89–107; RESP 12–22; TEMP 98.3–99.5; O2SAT 96–100
[2017-01-03 00:19] LABS: CKMB 1.2 NG/ML (0.5-3.6)
[2017-01-03] MEDS: PROPOFOL 1000 MG/100 ML INJ 100 ML IV SCH ×7 (00:25→21:58)
[2017-01-03 03:01] LABS: HEMATOCRIT 28.1 % (39.0-51.0); MEAN CELL VOLUME 98.5 FL (80.0-100.0); MEAN CORPUSCULAR HEMOGLOBIN 34.9 PG (27.0-34.0); MEAN CORPUSCULAR HGB CONC 35.4 % (32.0-36.0); PLATELET COUNT 229 TH/MM3 (150-450); RED BLOOD COUNT 2.85 MIL/MM3 (4.50-5.90); RED CELL DISTRIBUTION WIDTH 13.6 % (11.6-17.2); REVIEW FLAG FINAL; WHITE BLOOD COUNT 12.1 TH/MM3 (4.0-11.0)
[2017-01-03 03:07] LABS: BICARBONATE 21.5 MEQ/L (21.0-32.0); POTASSIUM 4.8 MEQ/L (3.5-5.1)
[2017-01-03] MEDS: RESP: ALBUTEROL 2.5 MG/IPRATROPIUM 0.5 MG NEB (SCH) INH ×4 (03:27→20:06)
[2017-01-03] MEDS: NOREPINEPHRINE-DEXTROSE DRIP 250 ML IV SCH (03:45)
[2017-01-03] MEDS: INSULIN NovoLIN REGULAR SUPPLEMENTAL SCALE SQ SCH ×4 (04:43→23:56)
[2017-01-03] MEDS: HEPARIN SODIUM - SQ 10,000 UNITS/ML VIAL SQ SCH ×3 (04:43→21:58)
--- NOTE | 2017-01-03 05:12 | RADRPT ---
EXAM DATE/TIME: 01/03/2017 04:02 [facility] COMPARISON: CHEST SINGLE AP, January 02, 2017, 16:34. INDICATIONS : Shortness of breath, possible pulmonary disease. MEDICAL HISTORY : Diabetes mellitus type II. Renal insufficiency. Cardiovascular disease. SURGICAL HISTORY : None. ENCOUNTER: Subsequent ACUITY: 3 days PAIN SCORE: Non-responsive. LOCATION: Bilateral chest FINDINGS: A single portable frontal view the chest shows no interval change. Diffuse bilateral intra-alveolar i nfiltrates are unchanged. No effusions. Heart is normal in size. Tip of the endotracheal tube 6 cm pr oximal to sandy. Left-sided internal jugular vein central venous line. CONCLUSION: Unchanged bilateral pulmonary infiltrates. Issa Wills Jr., MD on January 03, 2017 at 5:10 Board Certified Radiologist. This report was verified electronically.
[2017-01-03 05:40] LABS: BLOOD GAS BASE EXCESS -6.9 mmol/L (-2-2); BLOOD GAS CARBOXYHEMOGLOBIN 1.2 % (0-4); BLOOD GAS HCO3 18 mmol/L (22-26); BLOOD GAS O2 HGB SATURATION 97 % (90-100); BLOOD GAS OXYGEN CONTENT 12.7 Vol % (12.0-20.0); BLOOD GAS PCO2 36 mmHg (38-42); BLOOD GAS PO2 160 mmHg (61-120); BLOOD GAS TOTAL HGB 9.1 G/DL (12.0-16.0); FIO2 50 %; TEMP CORR TO 98.6; VENT SETTINGS 15/500 10 PEEP
[2017-01-03 05:41] LABS: DRAW SITE ART LINE; STAT NO
[2017-01-03 06:28] LABS: CRITICAL VALUE NO; OXYGEN DEVICE VENTILATOR
--- NOTE | 2017-01-03 08:04 | HHI.CCPN ---
Subjective Remarks/Hospital Course Hospital Course: This is a 56-year-old male who originally came into the emergency department with his left foot wound. He was admitted for IV antibiotics and cellulitis, possible osteomyelitis of the foot. He was seen by Dr. Ospina with infectious disease who felt that this was likely chronic osteo and not acute. Overnight last night he became acutely delirious, and has a very strong alcohol history, and was thought most likely to be an alcohol withdrawal. He was given Ativan. This morning, he was much more somnolent. This afternoon a rapid response was called because the patient was unresponsive. When I arrived, the patient had a oxygen saturation of 30% with a good plethysmograph waveform. He was emergently transferred to the ICU and intubated. He had a chest x-ray showing bilateral pulmonary protrudes in all lobes, more suggestive of ARDS. The patient was tachycardic, febrile, very septic appearing. He is toxic. Unfortunately, the patient is unresponsive and cannot provide any additional history. Subjective: 01/03: remains intubated, sedated. persistent bilateral infiltrates. likely ARDS. remains on vasopressors. Objective Vital Signs Date Time Temp Pulse Resp B/P Pulse Ox O2 Delivery O2 Flow Rate FiO2 01/03/17 06:00 107 01/03/17 04:00 98.4 14 117/63 100 117/63 01/03/17 03:29 50 01/02/17 20:00 Room Air 01/01/17 18:11 3.00 Intake and Output 01/02/17 01/02/17 01/03/17 08:00 16:00 00:00 Intake Total 475 ml Output Total 400 ml 450 ml Balance -400 ml 25 ml Result Diagram: 01/03/17 0239 01/03/17 0239 Other Results Laboratory Tests Test 01/02/17 01/02/17 01/03/17 15:40 16:34 05:30 Blood Gas Puncture Site RT RADIAL ART LINE ART LINE Blood Gas Patient Temperature 98.6 98.6 Blood Gas HCO3 18 mmol/L 18 mmol/L 18 mmol/L (22-26) (22-26) (22-26) Blood Gas Base Excess -6.8 mmol/L -7.7 mmol/L -6.9 mmol/L (-2-2) (-2-2) (-2-2) Blood Gas Oxygen Saturation 56 % (90-100) 97 % (90-100) 97 % (90-100) Arterial Blood pH 7.35 7.23 7.32 (7.380-7.420) (7.380-7.420) (7.380-7.420) Arterial Blood Partial 34 mmHg (38-42) 45 mmHg (38-42) 36 mmHg (38-42) Pressure CO2 Arterial Blood Partial 33 mmHg 186 mmHg 160 mmHg Pressure O2 (61-120) (61-120) (61-120) Arterial Blood Oxygen Content 8.8 Vol % 14.9 Vol % 12.7 Vol % (12.0-20.0) (12.0-20.0) (12.0-20.0) Arterial Blood 1.7 % (0-4) 1.5 % (0-4) 1.2 % (0-4) Carboxyhemoglobin Arterial Blood Methemoglobin 1.0 % (0-2) 0.9 % (0-2) 1.0 % (0-2) Blood Gas Hemoglobin 11.1 G/DL 10.7 G/DL 9.1 G/DL (12.0-16.0) (12.0-16.0) (12.0-16.0) Blood Gas Inspired Oxygen 21 % 100 % 50 % Oxygen Delivery Device VENTILATOR VENTILATOR Blood Gas Ventilator Setting 550/14/14PEEP 15/500 10 PEEP Imaging Last Impressions Chest X-Ray 01/03/17 0600 Signed Impressions: Service Date/Time: December 04:02 - CONCLUSION: Unchanged bilateral pulmonary infiltrates. Issa Wills Jr., MD Chest CT 01/02/17 1645 Signed Impressions: Service Date/Time: Monday, January 02, 2017 22:10 - CONCLUSION: 1. Acute development of bilateral airspace disease as above with some peripheral sparing , especially at the bases. Findings nonspecific. Patient may be developing ARDS/diffuse alveolar damage. Other considerations include infection and severe hypersensitivity type reaction. 2. Endotracheal tube, nasogastric tube and left central line in satisfactory position. Christopher Lagos MD Head CT 01/02/17 0000 Signed Impressions: Service Date/Time: Monday, January 02, 2017 22:08 - CONCLUSION: Normal examination for a patient of this age. No significant change has occurred. Christopher Lagos MD Lower Extremity Ultrasound 4/4/17 0000 Signed Impressions: Service Date/Time: Sunday, January 01, 2017 13:26 - CONCLUSION: Normal examination. Pk Ricks MD Lower Extremity MRI 01/01/17 Signed Impressions: Service Date/Time: Sunday, January 01, 2017 20:03 - CONCLUSION: Subcutaneous soft tissue edema distal leg. No evidence of osteomyelitis of the tibia or fibula. Issa Christiansen MD Foot X-Ray 01/01/17 Signed Impressions: Service Date/Time: Sunday, January 01, 2017 04:49 - CONCLUSION: No acute abnormality. Prior left toe amputation. Issa Wills Jr., MD Foot MRI 01/01/17 Signed Impressions: Service Date/Time: Sunday, January 01, 2017 20:03 - CONCLUSION: 1. Prominent subcutaneous soft tissue edema about the foot and ankle. 2. Abnormal signal in the distal metatarsal head of the 4th digit, characterized by T1 and T2 prolongation. Differential considerations include healing fracture and osteomyelitis. 3. Probable Aburto's neuroma in the interspace between the distal 2nd and 3rd metatarsal bones. Issa Christiansen MD Abdomen/Pelvis CT 12/31/161938 Signed Impressions: Service Date/Time: Saturday, December 31, 2016 22:46 - CONCLUSION: 1. No acute abnormality to explain the patient's pain. 2. Colonic diverticulosis. No acute inflammation. 3. Suspected small calcified gallstone. The gallbladder is nondilated. 4. 4.2 cm left adrenal gland adenoma. Issa Wills Jr., MD Abdomen X-Ray 12/31/16 Signed Impressions: Service Date/Time: Saturday, December 31, 2016 19:25 - CONCLUSION: Unremarkable study except for stool. Lela Stephens MD Objective Remarks GENERAL: Middle-aged male, lying in bed, intubated, sedated. critically ill. HEENT: Pupils equal, round, reactive, conjugate. Normocephalic. Atraumatic. Mucous membranes are moist NECK: Obese neck. Unable to assess JVD. 8.[address] CHEST: rash over anterior chest much improved and almost completely resolved. Decreased air entry bilaterally. Coarse rales throughout all lung aguirre. PRVC /15/500/10/40%. CARDIOVASCULAR: Normal rate, regular rhythm. No appreciable murmurs. ABDOMEN: Obese, soft, nontender, nondistended. No guarding. MUSCULOSKELETAL: 1+ peripheral edema. Distal pulses 2+. There is a small area on his left heel with a nonhealing ulcer. There is no purulence coming from this. NEUROLOGICAL: RASS -2. Does not follow commands. Briskly Purposeful. withdraws x 4 A/P Assessment and Plan Assessment: This is a 56-year-old male with diabetes, left foot nonhealing wound , alcohol dependence, who presents now with acute hypoxic respiratory failure. At this point likely ARDS, though aspiration pneumonitis and volume overload could be in the differential diagnosis. His SVV and lactate both improved with iv hydration and volume resuscitation, making volume overload unlikely. continue gentle hydration today. when we are off vasopressors, we may have to begin force diuresis to improve oxygenation. Otherwise, follow up cultures, continue broad spectrum abx. For now remains very critically ill with likely ARDS, septic shock, at present source unknown, possibly heel infection. Plan by systems: Neurologic: Metabolic encephalopathy Alcohol withdrawal Agitated delirium Propofol, fentanyl for goal RASS -2 IV thiamine, multivitamin Frequent neuro checks ammonia 20 on 01/02. Respiratory: Acute hypoxic respiratory failure ARDS Possible aspiration pneumonitis Vent bundle Head of bed at 30 Wean FiO2 for goal SPO2 greater than 90% Low tidal volume ventilation targeting 6 kg ideal body weight PEEP of 10. we will not wean this today. Does not meet SBT criteria today given hypoxia. Cardiovascular: Sinus tachycardia Septic shock f/u 2d echo. Norepinephrine for goal map greater then 65 Renal: Acute kidney injury Likely prerenal/ATN secondary to sepsis. -- Strict I/Os Chamorro Every hour urine outputs FEN/GI: Acute protein calorie malnutritionmild Hyperkalemia Hypomagnesemia Trend BMP --start TF, glucerna 1.5, goal of 50, nutrition consult. Heme/ID: Left foot nonhealing ulceration Septic shock 01/02 sputum: NGTD --01/02 blood: NGTD --01/02 urine: NGTD. Vancomycin and Zosyn ID: Dr. Ospina following Daily CBC procalcitonin elevated at 8. likely bacterial infection. Endocrine: Diabetes Hyperglycemia of critical illness -- SSI, medium scale, every 6 Prophylaxis: GI Prophylaxis Protonix DVT Prophylaxis -- SCDs Subcutaneous heparin Lines: 4/5 left radial arterial line 4/5 left IJ triple-lumen catheter Chamorro Dispo: remain in the ICU. He remains critically ill. This patient remains critically ill with one or more organ systems which are or may become a threat to life. I have spent in excess of 51 minutes discontinuously in the care and management of this patient. This time is exclusive of procedures, and includes, but is not limited to, evaluation of the patient, review of the medical record, discussions with family, consultants, nursing staff, or respiratory therapy, and documentation in the medical record. Al Mendieta MD Jan 03, 2017 08:04
[2017-01-03] MEDS: ASPIRIN EC 81 MG TABEC PO SCH (08:35)
[2017-01-03] MEDS: PIPERACIL-TAZO 2.25 GM PREMIX 50 ML IV SCH ×3 (08:35→23:56)
[2017-01-03] MEDS: COLLAGENASE OINT 30 GM TUBE TOPICAL SCH (08:36)
[2017-01-03] MEDS: MULTIVITAMIN TAB PO SCH (08:36)
[2017-01-03] MEDS: SODIUM CHLORIDE 0.9% FLUSH 10 ML FLUSH IV FLUSH SCH ×2 (08:36→21:59)
[2017-01-03] MEDS: TAMSULOSIN HCL 0.4 MG CAP PO SCH (08:36)
[2017-01-03] MEDS: CHLORHEXIDINE 0.12% (ORAL KIT) 15 ML CUP MT SCH ×2 (08:37→19:53)
[2017-01-03] MEDS ORDERED: ALTEPLASE RECOMBINANT 2 MG VIAL IV FLUSH ONE (11:30)
[2017-01-03] MEDS: SODIUM CHLOR 0.9% 1000 ML INJ 1,000 ML IV SCH ×2 (12:03→20:00)
--- NOTE | 2017-01-03 12:51 | EKG ---
Date Performed: 01/02/2017 Time Performed: 22:55:47 PTAGE: 56 years EKG: Sinus rhythm WITH OCCASIONAL VENTRICULAR PREMATURE COMPLEXES BORDERLINE ECG PREVIOUS TRACING : 12/31/2016 19.49 Compared to the previous tracing sinus tachycardia is no lo nger present DOCTOR: Andrew Frank Interpretating Date/Time 01/03/2017 12:50:33
[2017-01-03 13:49] LABS: CREATINE KINASE 256 U/L (39-308)
--- NOTE | 2017-01-03 15:04 | HHI.NPPN ---
Subjective History of Present Illness 56 year old with ARF sepsis Review of Systems General Constitutional: Fatigue Objective Data Data 01/02/17 01/03/17 19:00 07:00 Intake Total 1650 ml Output Total 1750 ml Balance -100 ml IV Total 1650 ml Output Urine Total 1425 ml Gastric Drainage Total 325 ml # Bowel Movements 1 Vital Signs Date Time Temp Pulse Resp B/P Pulse Ox O2 Delivery O2 Flow Rate FiO2 01/03/17 14:45 97 40 01/03/17 14:00 90 01/03/17 12:00 40 01/03/17 12:00 95 01/03/17 12:00 99.5 95 12 111/73 100 108/59 01/03/17 11:12 100 40 01/03/17 10:00 96 01/03/17 08:00 94 01/03/17 08:00 98.9 94 17 143/77 96 96/66 01/03/17 07:55 100 40 01/03/17 07:00 Mechanical Ventilator 40 01/03/17 06:00 107 01/03/17 04:00 98.4 89 14 117/63 100 117/63 01/03/17 04:00 107 01/03/17 03:29 99 50 01/03/17 02:00 107 01/03/17 01:15 99 50 01/03/17 00:00 107 01/03/17 00:00 98.4 89 14 116/62 100 117/78 01/02/17 22:34 90 50 01/02/17 22:12 94 100 01/02/17 22:00 107 01/02/17 20:00 107 01/02/17 20:00 Room Air 01/02/17 20:00 99.3 105 14 91/62 100 81/53 01/02/17 19:30 99 40 01/02/17 18:22 120 01/02/17 18:11 101.8 120 14 91/63 100 84/54 01/02/17 16:00 92 100 -: 01/03/17 0239 01/03/17 0239 Microbiology 01/02/17 Aerobic Blood Culture - Preliminary, Resulted NO GROWTH IN 1 DAY 01/02/17 Anaerobic Blood Culture - Preliminary, Resulted NO GROWTH IN 1 DAY 01/02/17 Aerobic Blood Culture - Preliminary, Resulted NO GROWTH IN 1 DAY 01/02/17 Anaerobic Blood Culture - Preliminary, Resulted NO GROWTH IN 1 DAY 01/02/17 Gram Stain - Final, Resulted 01/02/17 Sputum Culture - Preliminary, Resulted NO GROWTH IN 24 HOURS. 01/02/17 Urine Culture - Preliminary, Resulted NO GROWTH IN 24 HOURS. Physical Exam General Appearance: Well Developed Neck Neck Exam: Neck Supple Pulmonary Resp Exam: Clear Bilaterally Cardiology CV Exam: Regular, Normal Sinus Rhythm Gastrointestinal/Abdomen GI Exam: Soft, Non-Tender Assessment/Plan Problem List: (1) Acute renal failure Plan: He has acute tubular necrosis cr declined inc UOP continue supportive care (2) Sepsis Plan: Patient is on vancomycin, Zosyn and micafungin possible source is left heel ulcer showing a growth of group D enterococcus (3) DM (diabetes mellitus) Plan: Follow blood glucose (4) Rhabdomyolysis Plan: This was resolving follow CPK (5) Bladder outlet obstruction Plan: Chamorro catheter is in place (6) Metabolic acidosis Plan: Due to lactic acidosis from sepsis Problem Qualifiers (1) Acute renal failure: Qualified Code: N17.1 - Acute renal failure with acute cortical necrosis (2) Sepsis: Qualified Code: A41.9 - Sepsis, due to unspecified organism (3) Rhabdomyolysis: Qualified Code: M62.82 - Non-traumatic rhabdomyolysis Nikita Guevara MD Jan 03, 2017 15:04
[2017-01-03] MEDS: MICAFUNGIN INJ 150 MG in SODIUM CHLORIDE 0.9% INJ 100 ML IV SCH (17:02)
--- NOTE | 2017-01-03 18:30 | HHI.IDPN ---
Subjective Subjective Remarks Events noted Yday am pt was found unresponsive , cyanotic and in severe hypoxia Pt was intubated and placed on mech vent he had fever yday of 101.8, no fever today Pt was satarted on broad spectrum a abx (zosyn, vanco, micafungin) yday pressors were started Antibiotics zosyn, vanco, micafungin Past Medical History BM, ETOHism tobaccoism Allergies: Coded Allergies: Toradol (Verified Allergy, Intermediate, Headache, 12/31/16) Objective . Vital Signs Date Time Temp Pulse Resp B/P Pulse Ox O2 Delivery O2 Flow Rate FiO2 01/03/17 18:00 90 01/03/17 16:00 40 01/03/17 16:00 89 01/03/17 16:00 98.3 89 12 110/71 100 108/59 01/03/17 14:45 97 40 01/03/17 14:00 90 01/03/17 12:00 40 01/03/17 12:00 95 01/03/17 12:00 99.5 95 12 111/73 100 108/59 01/03/17 11:12 100 40 01/03/17 10:00 96 01/03/17 08:00 94 01/03/17 08:00 98.9 94 17 143/77 96 96/66 01/03/17 07:55 100 40 01/03/17 07:00 Mechanical Ventilator 40 01/03/17 06:00 107 01/03/17 04:00 98.4 89 14 117/63 100 117/63 01/03/17 04:00 107 01/03/17 03:29 99 50 01/03/17 02:00 107 01/03/17 01:15 99 50 01/03/17 00:00 107 01/03/17 00:00 98.4 89 14 116/62 100 117/78 01/02/17 22:34 90 50 01/02/17 22:12 94 100 01/02/17 22:00 107 01/02/17 20:00 107 01/02/17 20:00 Room Air 01/02/17 20:00 99.3 105 14 91/62 100 81/53 01/02/17 19:30 99 40 01/02/17 01/02/17 01/03/17 15:00 23:00 07:00 Intake Total 475 ml 1175 ml Output Total 450 ml 1300 ml Balance 25 ml -125 ml IV Total 475 ml 1175 ml Output Urine Total 450 ml 975 ml Gastric Drainage Total 325 ml # Bowel Movements 1 . Laboratory Tests Test 01/02/17 01/02/17 01/03/17 07:20 17:07 02:39 White Blood Count 14.6 TH/MM3 11.6 TH/MM3 12.1 TH/MM3 Red Blood Count 3.10 MIL/MM3 2.89 MIL/MM3 2.85 MIL/MM3 Hemoglobin 10.6 GM/DL 9.8 GM/DL 9.9 GM/DL Hematocrit 30.7 % 28.5 % 28.1 % Mean Corpuscular Volume 99.0 FL 98.7 FL 98.5 FL Mean Corpuscular Hemoglobin 34.3 PG 34.1 PG 34.9 PG Mean Corpuscular Hemoglobin 34.6 % 34.5 % 35.4 % Concent Red Cell Distribution Width 13.5 % 13.3 % 13.6 % Platelet Count 236 TH/MM3 231 TH/MM3 229 TH/MM3 Mean Platelet Volume 9.6 FL 9.6 FL 9.5 FL Neutrophils (%) (Auto) 80.9 % 84.5 % Lymphocytes (%) (Auto) 12.4 % 8.0 % Monocytes (%) (Auto) 6.1 % 7.0 % Eosinophils (%) (Auto) 0.2 % 0.2 % Basophils (%) (Auto) 0.4 % 0.3 % Neutrophils # (Auto) 11.8 TH/MM3 9.8 TH/MM3 Lymphocytes # (Auto) 1.8 TH/MM3 0.9 TH/MM3 Monocytes # (Auto) 0.9 TH/MM3 0.8 TH/MM3 Eosinophils # (Auto) 0.0 TH/MM3 0.0 TH/MM3 Basophils # (Auto) 0.1 TH/MM3 0.0 TH/MM3 CBC Comment DIFF FINAL DIFF FINAL Differential Comment Laboratory Tests Test 01/02/17 01/02/17 01/02/17 01/02/17 07:20 15:02 15:33 17:07 Sodium Level 133 MEQ/L 134 MEQ/L Potassium Level 5.1 MEQ/L 5.1 MEQ/L Chloride Level 101 MEQ/L 102 MEQ/L Carbon Dioxide Level 20.7 MEQ/L 22.0 MEQ/L Anion Gap 11 MEQ/L 10 MEQ/L Blood Urea Nitrogen 45 MG/DL 44 MG/DL Creatinine 5.66 MG/DL 4.85 MG/DL Estimat Glomerular Filtration 10 ML/MIN 13 ML/MIN Rate Random Glucose 177 MG/DL 178 MG/DL Calcium Level 8.1 MG/DL 8.1 MG/DL Phosphorus Level 3.0 MG/DL 3.2 MG/DL Magnesium Level 1.8 MG/DL 1.7 MG/DL Total Bilirubin 0.6 MG/DL 0.6 MG/DL Aspartate Amino Transf 38 U/L 74 U/L (AST/SGOT) Alanine Aminotransferase 21 U/L 41 U/L (ALT/SGPT) Alkaline Phosphatase 82 U/L 78 U/L Total Creatine Kinase 705 U/L 569 U/L Creatine Kinase MB 2.6 NG/ML 1.4 NG/ML Creatine Kinase MB % 0.4 % 0.2 % Total Protein 6.8 GM/DL 6.7 GM/DL Albumin 2.9 GM/DL 2.7 GM/DL Serum Osmolality 294 MOSM/KG Lactic Acid Level 2.6 mmol/L 0.9 mmol/L Troponin I 0.05 NG/ML Test 01/02/17 01/02/17 01/03/17 01/03/17 19:15 23:33 02:39 12:00 Sodium Level 134 MEQ/L 135 MEQ/L Potassium Level 5.1 MEQ/L 4.8 MEQ/L Chloride Level 102 MEQ/L 104 MEQ/L Carbon Dioxide Level 20.9 MEQ/L 21.5 MEQ/L Anion Gap 11 MEQ/L 10 MEQ/L Blood Urea Nitrogen 44 MG/DL 41 MG/DL Creatinine 4.68 MG/DL 3.89 MG/DL Estimat Glomerular Filtration 13 ML/MIN 16 ML/MIN Rate Random Glucose 186 MG/DL 200 MG/DL Lactic Acid Level 0.8 mmol/L Calcium Level 8.0 MG/DL 7.7 MG/DL Total Bilirubin 0.8 MG/DL Aspartate Amino Transf 65 U/L (AST/SGOT) Alanine Aminotransferase 41 U/L (ALT/SGPT) Alkaline Phosphatase 78 U/L Ammonia 20 MCMOL/L Total Protein 6.8 GM/DL Albumin 3.0 GM/DL Procalcitonin 8.09 ng/mL Total Creatine Kinase 423 U/L 256 U/L Creatine Kinase MB 1.2 NG/ML Creatine Kinase MB % 0.3 % Troponin I 0.04 NG/ML LESS THAN 0.02 NG/ML Phosphorus Level 4.0 MG/DL Microbiology Date/Time Procedure Status Source Growth 12/31/16 20:00 Aerobic Blood Culture - Preliminary Resulted Blood Peripheral NO GROWTH IN 3 DAYS 12/31/16 20:00 Anaerobic Blood Culture - Preliminary Resulted Blood Peripheral NO GROWTH IN 3 DAYS 12/31/16 20:05 Aerobic Blood Culture - Preliminary Resulted Blood Peripheral NO GROWTH IN 3 DAYS 12/31/16 20:05 Anaerobic Blood Culture - Preliminary Resulted Blood Peripheral NO GROWTH IN 3 DAYS 01/01/17 05:30 Gram Stain - Final Resulted Wound Heel 01/01/17 05:30 Wound Culture - Preliminary Resulted Group D Enterococcus 01/02/17 14:50 Aerobic Blood Culture - Preliminary Resulted Blood Peripheral NO GROWTH IN 1 DAY 01/02/17 14:50 Anaerobic Blood Culture - Preliminary Resulted Blood Peripheral NO GROWTH IN 1 DAY 01/02/17 15:00 Aerobic Blood Culture - Preliminary Resulted Blood Peripheral NO GROWTH IN 1 DAY 01/02/17 15:00 Anaerobic Blood Culture - Preliminary Resulted Blood Peripheral NO GROWTH IN 1 DAY 01/02/17 16:15 Aerobic Blood Culture - Preliminary Resulted Blood Peripheral NO GROWTH IN 1 DAY 01/02/17 16:15 Anaerobic Blood Culture - Preliminary Resulted Blood Peripheral NO GROWTH IN 1 DAY 01/02/17 16:30 Aerobic Blood Culture - Preliminary Resulted Blood Peripheral NO GROWTH IN 1 DAY 01/02/17 16:30 Anaerobic Blood Culture - Preliminary Resulted Blood Peripheral NO GROWTH IN 1 DAY 01/02/17 17:35 Gram Stain - Final Resulted Sputum Endotracheal 01/02/17 17:35 Sputum Culture - Preliminary Resulted Sputum Endotracheal NO GROWTH IN 24 HOURS. 01/02/17 17:35 Urine Culture - Preliminary Resulted Urine Catheterized Urine NO GROWTH IN 24 HOURS. Imaging Last Impressions Chest X-Ray 01/03/17 0600 Signed Impressions: Service Date/Time: December 04:02 - CONCLUSION: Unchanged bilateral pulmonary infiltrates. Issa Wills Jr., MD Chest CT 01/02/17 1645 Signed Impressions: Service Date/Time: Monday, January 02, 2017 22:10 - CONCLUSION: 1. Acute development of bilateral airspace disease as above with some peripheral sparing , especially at the bases. Findings nonspecific. Patient may be developing ARDS/diffuse alveolar damage. Other considerations include infection and severe hypersensitivity type reaction. 2. Endotracheal tube, nasogastric tube and left central line in satisfactory position. Christopher Lagos MD Head CT 01/02/17 Signed Impressions: Service Date/Time: Monday, January 02, 2017 22:08 - CONCLUSION: Normal examination for a patient of this age. No significant change has occurred. Christopher Lagos MD Lower Extremity Ultrasound 01/01/17 Signed Impressions: Service Date/Time: Sunday, January 01, 2017 13:26 - CONCLUSION: Normal examination. Pk Ricks MD Lower Extremity MRI 01/01/17 Signed Impressions: Service Date/Time: Sunday, January 01, 2017 20:03 - CONCLUSION: Subcutaneous soft tissue edema distal leg. No evidence of osteomyelitis of the tibia or fibula. Issa Christiansen MD Foot X-Ray 01/01/17 Signed Impressions: Service Date/Time: Sunday, January 01, 2017 04:49 - CONCLUSION: No acute abnormality. Prior left toe amputation. Issa Wills Jr., MD Foot MRI 01/01/17 Signed Impressions: Service Date/Time: Sunday, January 01, 2017 20:03 - CONCLUSION: 1. Prominent subcutaneous soft tissue edema about the foot and ankle. 2. Abnormal signal in the distal metatarsal head of the 4th digit, characterized by T1 and T2 prolongation. Differential considerations include healing fracture and osteomyelitis. 3. Probable Aburto's neuroma in the interspace between the distal 2nd and 3rd metatarsal bones. Issa Christiansen MD Abdomen/Pelvis CT 12/31/161938 Signed Impressions: Service Date/Time: Saturday, December 31, 2016 22:46 - CONCLUSION: 1. No acute abnormality to explain the patient's pain. 2. Colonic diverticulosis. No acute inflammation. 3. Suspected small calcified gallstone. The gallbladder is nondilated. 4. 4.2 cm left adrenal gland adenoma. Issa Wills Jr., MD Abdomen X-Ray 12/31/16 Signed Impressions: Service Date/Time: Saturday, December 31, 2016 19:25 - CONCLUSION: Unremarkable study except for stool. K. Earl Stephens MD Physical Exam CONSTITUTIONAL/GENERAL: This is an obese patient, in no apparent distress. sedated int'd on [facility] vent TUBES/LINES/DRAINS: SKIN: No jaundice, rashes, or lesions. Skin temperature appropriate. Not diaphoretic. HEAD: Atraumatic. Normocephalic. EYES: Pupils equal and round and reactive. Extraocular motions intact. No scleral icterus. No injection or drainage. Fundi not examined. ENT: Oral mucosae moist, dentition poor orally int'd NECK: Trachea midline. Supple, nontender. CARDIOVASCULAR: Regular rate and rhythm without murmurs, gallops, or rubs. No JVD. Peripheral pulses symmetric. RESPIRATORY/CHEST: Symmetric, unlabored respirations. Clear to auscultation. Breath sounds equal bilaterally. No wheezes, rales, or rhonchi. GASTROINTESTINAL: Abdomen soft, non-tender, nondistended. No hepato-splenomegaly , or palpable masses. No guarding. Bowel sounds present. GENITOURINARY: Without palpable bladder distension. Chamorro catheter in place with slightly cloudy yellow urine MUSCULOSKELETAL: Extremities without clubbing, cyanosis, or edema. LYMPHATICS: No palpable cervical or supraclavicular adenopathy. NEUROLOGICAL: sedated unresponsive PSYCHIATRIC: unable to assess Assessment & Plan Remarks Admitted for obstructive uropathy and ARF Acute renal failurelikely post obstructive Rhabdomyolysis Acute urinary retention Left heel chronic diabetic ulcer, no e/o osteo of L heel - growing enterococccus from surface clx ? significance - this is definetely not the source of pt possible sepsis ? new sepsis : source urinaty, endovasc ? with ARDS New issue: acute VDRF Hypoxia with new infiltrates ? ARDS ? 2/2 sepsis vs aspiration pneumonitis ve atypical PNA - cont zosyn, vancomycin, micafungin - fu all P clx dw Dr Gayatri Ospina,Mi Villalba MD Jan 03, 2017 18:30
[2017-01-03] MEDS: PANTOPRAZOLE SODIUM 40 MG VIAL IV PUSH SCH (19:53)
[2017-01-04] VITALS (20 sets, daily range): BP systolic 94–136; BP diastolic 52–72; PULSE 90–110; RESP 12–25; TEMP 98.9–101.3; O2SAT 94–99
[2017-01-04] MEDS: PROPOFOL 1000 MG/100 ML INJ 100 ML IV SCH ×10 (00:44→23:05)
[2017-01-04] MEDS: CHLORHEXIDINE GLUCONATE 2 % 1 PACK (2 CLOTHS)(taper/protocol) TOPICAL SCH (03:31)
[2017-01-04] MEDS: THIAMINE INJ 100 MG in SODIUM CHLORIDE 0.9% INJ 100 ML IV SCH (03:31)
[2017-01-04] MEDS: RESP: ALBUTEROL 2.5 MG/IPRATROPIUM 0.5 MG NEB (SCH) INH ×4 (03:35→20:48)
[2017-01-04] MEDS: fentaNYL DRIP 250 ML IV SCH ×2 (04:13→17:21)
[2017-01-04] MEDS: SODIUM CHLOR 0.9% 1000 ML INJ 1,000 ML IV SCH ×3 (04:20→23:06)
[2017-01-04] MEDS: HEPARIN SODIUM - SQ 10,000 UNITS/ML VIAL SQ SCH ×3 (05:11→23:05)
[2017-01-04 05:12] LABS: HEMATOCRIT 26.8 % (39.0-51.0); MEAN CELL VOLUME 98.4 FL (80.0-100.0); MEAN CORPUSCULAR HEMOGLOBIN 34.9 PG (27.0-34.0); MEAN CORPUSCULAR HGB CONC 35.5 % (32.0-36.0); PLATELET COUNT 242 TH/MM3 (150-450); RED BLOOD COUNT 2.72 MIL/MM3 (4.50-5.90); RED CELL DISTRIBUTION WIDTH 13.7 % (11.6-17.2); REVIEW FLAG FINAL; WHITE BLOOD COUNT 10.3 TH/MM3 (4.0-11.0)
[2017-01-04] MEDS: INSULIN NovoLIN REGULAR SUPPLEMENTAL SCALE SQ SCH ×4 (05:12→23:05)
[2017-01-04 05:39] LABS: BICARBONATE 23.4 MEQ/L (21.0-32.0); POTASSIUM 4.3 MEQ/L (3.5-5.1)
[2017-01-04] MEDS: NOREPINEPHRINE-DEXTROSE DRIP 250 ML IV SCH (06:28)
[2017-01-04] MEDS: PIPERACIL-TAZO 2.25 GM PREMIX 50 ML IV SCH (08:48)
[2017-01-04] MEDS: CHLORHEXIDINE 0.12% (ORAL KIT) 15 ML CUP MT SCH ×2 (08:48→19:56)
[2017-01-04] MEDS: SODIUM CHLORIDE 0.9% FLUSH 10 ML FLUSH IV FLUSH SCH ×2 (08:48→19:56)
[2017-01-04] MEDS: MULTIVITAMIN TAB PO SCH (08:49)
[2017-01-04] MEDS: COLLAGENASE OINT 30 GM TUBE TOPICAL SCH (08:49)
[2017-01-04] MEDS: ASPIRIN EC 81 MG TABEC PO SCH (08:49)
[2017-01-04] MEDS: TAMSULOSIN HCL 0.4 MG CAP PO SCH (08:49)
--- NOTE | 2017-01-04 08:49 | HHI.PR ---
Subjective Patient symptoms today Pt intubated and sedated. Creatinine improving. Objective Vital Signs Vital Signs Date Time Temp Pulse Resp B/P Pulse Ox O2 Delivery O2 Flow Rate FiO2 01/04/17 08:26 96 40 01/04/17 06:00 110 01/04/17 04:14 98 40 01/04/17 04:00 40 01/04/17 04:00 98.9 106 25 106/72 98 136/72 01/04/17 04:00 106 01/04/17 02:00 90 01/04/17 00:04 98 40 01/04/17 00:00 91 01/04/17 00:00 40 01/04/17 00:00 98.9 91 15 96/62 98 94/57 01/03/17 22:00 100 01/03/17 20:06 100 40 01/03/17 20:00 40 01/03/17 20:00 100 01/03/17 20:00 100 80/64 111/63 01/03/17 20:00 01/03/17 20:00 99.2 100 22 80/64 100 111/63 01/03/17 18:00 90 01/03/17 16:00 40 01/03/17 16:00 89 01/03/17 16:00 98.3 89 12 110/71 100 108/59 01/03/17 14:45 97 40 01/03/17 14:00 90 01/03/17 12:00 40 01/03/17 12:00 95 01/03/17 12:00 99.5 95 12 111/73 100 108/59 01/03/17 11:12 100 40 01/03/17 10:00 96 Intake & Output 01/04/17 01/04/17 07:00 19:00 Intake Total 1505 ml Output Total 2100.0 ml Balance -595.0 ml IV Total 860 ml Tube Feeding 565 ml Tube Irrigant 80 ml Output Urine Total 2100 ml Stool Total 0 ml Tube Feeding Residual Discard 0 ml Result Diagram: 01/04/17 0345 01/04/17 034 Objective Remarks Abd:soft,nt,nt Saunders: clear urine 01/04 Abd:soft,nt,nt Saunders: clear urine Medications and IVs Current Medications Medications (Trade) Dose Ordered Sig/Rip Route Start Time Stop Time Status Last Admin (NS Flush) 2 ml UNSCH PRN IV FLUSH 12/31/16 21:45 (NS Flush) 2 ml BID IV FLUSH 01/01/17 09:00 01/03/17 21:59 (Narcan Inj) 0.4 mg UNSCH PRN IV 12/31/16 21:45 (Ecotrin Ec) 81 mg DAILY PO 01/01/17 09:00 01/03/17 08:35 (Lyrica) 200 mg DAILY PO 01/01/17 09:00 Hold 01/02/17 08:25 (Heparin Inj) 5,000 units Q8HR SQ 01/01/17 14:00 01/04/17 05:11 (Flomax) 0.4 mg DAILY PO 01/01/17 11:00 01/03/17 08:36 (Santyl Oint) 1 applic DAILY TOPICAL 01/01/17 19:15 01/03/17 08:36 Flumazenil 0.2 mg 0.2 mg Q1M PRN IV PUSH 01/01/17 22:30 Piperacillin Sod/ Tazobactam Sod 50 ml @ 100 mls/hr Q8H IV 01/02/17 17:00 01/03/17 23:56 Micafungin Sodium 150 mg/Sodium Chloride 100 ml @ 100 mls/hr Q24H IV 01/02/17 17:00 01/03/17 17:02 Fentanyl Citrate 250 ml @ 0 mls/hr TITRATE IV 01/02/17 18:30 01/04/17 04:13 (Diprivan 1000 Mg/100ml Inj) 100 ml @ 0 mls/hr TITRATE IV 01/02/17 18:30 01/04/17 06:28 (Peridex 0.12% Liq) 15 ml BID@08,20 MT 01/02/17 20:00 01/03/17 19:53 (D50w (Vial) Inj) 25 ml UNSCH PRN IV PUSH 01/02/17 18:30 Insulin Human Regular 1 1 Q6HR SQ 01/03/17 00:00 01/04/17 05:12 (NS 1000 ml Inj) 1,000 ml @ 120 mls/hr Q8H20M IV 01/02/17 19:00 01/03/17 12:03 (Vitamin B1) 100 mg DAILY PO 01/06/17 09:00 Multivitamins 1 tab 1 tab DAILY PO 01/03/17 09:00 01/03/17 08:36 (Levophed-Dextrose Drip) 250 ml @ 0 mls/hr TITRATE IV 01/02/17 19:00 01/04/17 06:28 (Brethine Inj) 1 mg UNSCH PRN SQ 01/02/17 19:00 (Protonix Inj) 40 mg Q24H IV PUSH 01/02/17 20:00 01/03/17 19:53 Miscellaneous Information Patient in critical care unit? Ass... Q361D .XX 01/02/17 21:45 (Chlorhexidine 2% Cloth) 3 pack DAILY@04 TOPICAL 01/03/17 04:00 01/07/17 04:01 01/04/17 03:31 (Chlorhexidine 2% Cloth) 3 pack UNSCH PRN TOPICAL 01/02/17 21:45 01/07/17 21:34 Assessment and Plan Assessment and Plan 56-year-old male admitted with urinary retention and acute renal failure. Maintain Saunders catheter for now and continue with IV fluids. We'll start Flomax 0.4 mg by mouth daily at bedtime for mild symptoms of outlet obstruction. Void trial once his creatinine baseline. Thank you for the consult and for allowing me to precipitate in the care this patient. 01/02 56 y.o male admitted with ARF and AUR with rhabdomyolysis Continue IVF ARF worsening with creatine up to 5.6 today Maintain saunders catheter Continue Flomax Void trial after creatinine normalizes 01/04 56 y.o male admitted with ARF and AUR with rhabdomyolysis and ARDS Creatinine improving; down 2.4 Maintain saunders catheter Void trial when out of unit and creatinine baselines Nikko Parsons DO Jan 04, 2017 08:49
--- NOTE | 2017-01-04 10:10 | HHI.NPPN ---
Subjective History of Present Illness 56 year old with ARF sepsis left heel ulcer Review of Systems General Constitutional: Fatigue Objective Data Data 01/03/17 01/04/17 19:00 07:00 Intake Total 1623 ml 1505 ml Output Total 750 ml 2100.0 ml Balance 873 ml -595.0 ml IV Total 1623 ml 860 ml Tube Feeding 565 ml Tube Irrigant 80 ml Output Urine Total 750 ml 2100 ml Stool Total 0 ml Tube Feeding Residual Discard 0 ml Vital Signs Date Time Temp Pulse Resp B/P Pulse Ox O2 Delivery O2 Flow Rate FiO2 01/04/17 08:26 96 40 01/04/17 08:00 101.3 104 12 107/62 98 105/57 01/04/17 08:00 104 01/04/17 06:00 110 01/04/17 04:14 98 40 01/04/17 04:00 40 01/04/17 04:00 98.9 106 25 106/72 98 136/72 01/04/17 04:00 106 01/04/17 02:00 90 01/04/17 00:04 98 40 01/04/17 00:00 91 01/04/17 00:00 40 01/04/17 00:00 98.9 91 15 96/62 98 94/57 01/03/17 22:00 100 01/03/17 20:06 100 40 01/03/17 20:00 40 01/03/17 20:00 100 01/03/17 20:00 100 80/64 111/63 01/03/17 20:00 01/03/17 20:00 99.2 100 22 80/64 100 111/63 01/03/17 18:00 90 01/03/17 16:00 40 01/03/17 16:00 89 01/03/17 16:00 98.3 89 12 110/71 100 108/59 01/03/17 14:45 97 40 01/03/17 14:00 90 01/03/17 12:00 40 01/03/17 12:00 95 01/03/17 12:00 99.5 95 12 111/73 100 108/59 01/03/17 11:12 100 40 -: 01/04/17 0345 01/04/17 0345 Physical Exam General Appearance: Well Developed Neck Neck Exam: Neck Supple Pulmonary Resp Exam: Clear Bilaterally Cardiology CV Exam: Regular, Normal Sinus Rhythm Gastrointestinal/Abdomen GI Exam: Soft, Non-Tender Assessment/Plan Problem List: (1) Acute renal failure Plan: He has acute tubular necrosis cr declined further increasing UOP continue supportive care (2) Sepsis Plan: Patient is on vancomycin, Zosyn and micafungin possible source is left heel ulcer showing a growth of group D enterococcus (3) DM (diabetes mellitus) Plan: Follow blood glucose (4) Rhabdomyolysis Plan: resolved (5) Bladder outlet obstruction Plan: Chamorro catheter is in place (6) Metabolic acidosis Plan: resolved Problem Qualifiers (1) Acute renal failure: Qualified Code: N17.0 - Acute renal failure with tubular necrosis (2) Sepsis: Qualified Code: A41.9 - Sepsis, due to unspecified organism (3) Rhabdomyolysis: Qualified Code: M62.82 - Non-traumatic rhabdomyolysis Nikita Guevara MD Jan 04, 2017 10:10
--- NOTE | 2017-01-04 11:41 | HHI.CCPN ---
Subjective Remarks/Hospital Course Hospital Course: This is a 56-year-old male who originally came into the emergency department with his left foot wound. He was admitted for IV antibiotics and cellulitis, possible osteomyelitis of the foot. He was seen by Dr. Ospina with infectious disease who felt that this was likely chronic osteo and not acute. Overnight last night he became acutely delirious, and has a very strong alcohol history, and was thought most likely to be an alcohol withdrawal. He was given Ativan. This morning, he was much more somnolent. This afternoon a rapid response was called because the patient was unresponsive. When I arrived, the patient had a oxygen saturation of 30% with a good plethysmograph waveform. He was emergently transferred to the ICU and intubated. He had a chest x-ray showing bilateral pulmonary protrudes in all lobes, more suggestive of ARDS. The patient was tachycardic, febrile, very septic appearing. He is toxic. Unfortunately, the patient is unresponsive and cannot provide any additional history. Subjective: 01/03: remains intubated, sedated. persistent bilateral infiltrates. likely ARDS. remains on vasopressors. 01/04: Continued to spike fever 101.3 Tmax. Chest x-ray shows continued bilateral infiltrates/ARDS. Remains on Levophed at 4 mics per minute. Currently on Zosyn and micafungin, vancomycin added for additional gram- positive coverage Objective Vital Signs Date Time Temp Pulse Resp B/P Pulse Ox O2 Delivery O2 Flow Rate FiO2 01/04/17 08:26 96 40 01/04/17 08:00 101.3 104 12 107/62 105/57 01/03/17 07:00 Mechanical Ventilator 01/01/17 18:11 3.00 Intake and Output 01/03/17 01/03/17 01/04/17 08:00 16:00 00:00 Intake Total 1175 ml 1333 ml 895 ml Output Total 1300 ml 750 ml 1000.0 ml Balance -125 ml 583 ml -105.0 ml Result Diagram: 01/04/17 0345 01/04/17 0345 Other Results Microbiology Date/Time Procedure Status Source Growth 01/02/17 17:35 Gram Stain - Final Complete Sputum Endotracheal 01/02/17 17:35 Sputum Culture - Final Complete Sputum Endotracheal LIGHT GROWTH NORMAL RESPIRATORY CAMRYN 01/02/17 17:35 Urine Culture - Final Complete Urine Catheterized Urine NO GROWTH IN 48 HOURS. Imaging Last Impressions Chest X-Ray 01/03/17 0600 Signed Impressions: Service Date/Time: December 04:02 - CONCLUSION: Unchanged bilateral pulmonary infiltrates. Issa Wills Jr., MD Chest CT 01/02/17 1645 Signed Impressions: Service Date/Time: Monday, January 02, 2017 22:10 - CONCLUSION: 1. Acute development of bilateral airspace disease as above with some peripheral sparing , especially at the bases. Findings nonspecific. Patient may be developing ARDS/diffuse alveolar damage. Other considerations include infection and severe hypersensitivity type reaction. 2. Endotracheal tube, nasogastric tube and left central line in satisfactory position. Christopher Lagos MD Head CT 01/02/17 0000 Signed Impressions: Service Date/Time: Monday, January 02, 2017 22:08 - CONCLUSION: Normal examination for a patient of this age. No significant change has occurred. Christopher Lagos MD Lower Extremity Ultrasound 01/01/17 0000 Signed Impressions: Service Date/Time: Sunday, January 01, 2017 13:26 - CONCLUSION: Normal examination. Pk Ricks MD Lower Extremity MRI 01/01/17 0000 Signed Impressions: Service Date/Time: Sunday, January 01, 2017 20:03 - CONCLUSION: Subcutaneous soft tissue edema distal leg. No evidence of osteomyelitis of the tibia or fibula. Issa Christiansen MD Foot X-Ray 01/01/17 0000 Signed Impressions: Service Date/Time: Sunday, January 01, 2017 04:49 - CONCLUSION: No acute abnormality. Prior left toe amputation. Issa Wills Jr., MD Foot MRI 01/01/17 0000 Signed Impressions: Service Date/Time: Sunday, January 01, 2017 20:03 - CONCLUSION: 1. Prominent subcutaneous soft tissue edema about the foot and ankle. 2. Abnormal signal in the distal metatarsal head of the 4th digit, characterized by T1 and T2 prolongation. Differential considerations include healing fracture and osteomyelitis. 3. Probable Aburto's neuroma in the interspace between the distal 2nd and 3rd metatarsal bones. Issa Christiansen MD Abdomen/Pelvis CT [id number]/31/161938 Signed Impressions: Service Date/Time: Saturday, December 31, 2016 22:46 - CONCLUSION: 1. No acute abnormality to explain the patient's pain. 2. Colonic diverticulosis. No acute inflammation. 3. Suspected small calcified gallstone. The gallbladder is nondilated. 4. 4.2 cm left adrenal gland adenoma. Issa Wills Jr., MD Abdomen X-Ray 12/31/16 0000 Signed Impressions: Service Date/Time: Saturday, December 31, 2016 19:25 - CONCLUSION: Unremarkable study except for stool. Lela Stephens MD Objective Remarks GENERAL: Middle-aged male, lying in bed, intubated, sedated. critically ill. HEENT: Pupils equal, round, reactive, conjugate. Normocephalic. Atraumatic. Mucous membranes are moist NECK: Obese neck. Unable to assess JVD. 8.[address] CHEST: Decreased air entry bilaterally. Coarse rales throughout all lung aguirre. PRVC/15/500/10/40%. CARDIOVASCULAR: Normal rate, regular rhythm. No appreciable murmurs. ABDOMEN: Obese, soft, nontender, nondistended. No guarding. MUSCULOSKELETAL: 1+ peripheral edema. Distal pulses 2+. There is a small area on his left heel with a nonhealing ulcer. There is no purulence coming from this. NEUROLOGICAL: RASS -2. Does not follow commands. Briskly Purposeful. withdraws x 4 Urinary Catheter: Yes Assessment to: Continue Vascular Central Line Catheter: Yes Assessment to: Continue A/P Assessment and Plan Assessment: This is a 56-year-old male with diabetes, left foot nonhealing wound , alcohol dependence, who presents now with acute hypoxic respiratory failure. At this point likely ARDS, though aspiration pneumonitis and volume overload could be in the differential diagnosis. His SVV and lactate both improved with iv hydration and volume resuscitation, making volume overload unlikely. continue gentle hydration today. when we are off vasopressors, we may have to begin force diuresis to improve oxygenation. Otherwise, follow up cultures, continue broad spectrum abx. For now remains very critically ill with likely ARDS, septic shock, at present source unknown, possibly heel infection. Plan by systems: Neurologic: Metabolic encephalopathy Alcohol withdrawal Agitated delirium Propofol, fentanyl for goal RASS -2. Start Precedex in 24 hours to facilitate ventilator weaning with bradycardia IV thiamine, multivitamin Frequent neuro checks, daily sedation vacation ammonia 20 on 01/02. Respiratory: Acute hypoxic respiratory failure ARDS Aspiration pneumonitis Vent bundle Head of bed at 30 Wean FiO2 for goal SPO2 greater than 90% Low tidal volume ventilation targeting 6 kg ideal body weight PEEP of 10. Start weaning PEEP as tolerated Start CPAP trials, mental status will not permit extubation Cardiovascular: Sinus tachycardia Septic shock 2d echo-pending Norepinephrine for goal map greater then 65 Renal: Acute kidney injury Likely prerenal/ATN secondary to sepsis. --Strict I/Os Chamorro Every hour urine outputs FEN/GI: Acute protein calorie malnutritionmild Hyperkalemia Hypomagnesemia Trend BMP --TF, glucerna 1.5, goal of 50, nutrition consult. Heme/ID: Left foot nonhealing ulceration Septic shock 01/02 sputum: NGTD --01/02 blood: NGTD --01/02 urine: NGTD. --01/02 heel wound culture enterococcus sensitive to ampicillin Continue Zosyn, and micafungin added vancomycin ID: Dr. Ospina following Daily CBC procalcitonin elevated at 8. likely bacterial infection. Endocrine: Diabetes Hyperglycemia of critical illness -- SSI, medium scale, every 6 Prophylaxis: GI Prophylaxis Protonix DVT Prophylaxis -- SCDs Subcutaneous heparin Lines: / left radial arterial line 4/5 left IJ triple-lumen catheter Chamorro Dispo: remain in the ICU. He remains critically ill. This patient remains critically ill with one or more organ systems which are or may become a threat to life. I have spent in excess of 40 minutes discontinuously in the care and management of this patient. This time is exclusive of procedures, and includes, but is not limited to, evaluation of the patient, review of the medical record, discussions with family, consultants, nursing staff, or respiratory therapy, and documentation in the medical record. Meliza Whittington MD Jan 04, 2017 11:41
[2017-01-04] MEDS ORDERED: Vancomycin Consult Pharmacy 1 EA OTHER SCH (11:45)
[2017-01-04] MEDS ORDERED: VANCOMYCIN INJ 1,000 MG in SODIUM CHLOR 0.9% 250 ML INJ 250 ML IV ONE (11:45)
[2017-01-04] MEDS: SENNOSIDES SYRUP 8.8 MG/5 ML CUP PO SCH (12:01)
[2017-01-04] MEDS: DOCUSATE SODIUM 100 MG/10 ML UDC PO SCH ×2 (12:02→19:55)
[2017-01-04] MEDS ORDERED: VANCOMYCIN INJ 1,750 MG in SODIUM CHLORID 0.9% 500 ML INJ 500 ML IV ONE (13:00)
[2017-01-04] MEDS: MICAFUNGIN INJ 150 MG in SODIUM CHLORIDE 0.9% INJ 100 ML IV SCH (16:14)
[2017-01-04] MEDS: PIPERACIL-TAZO 3.375 GM PREMIX 50 ML IV SCH (16:15)
[2017-01-04] MEDS: LORazepam 2 MG/ML VIAL IV PRN (19:55)
[2017-01-04] MEDS: PANTOPRAZOLE SODIUM 40 MG VIAL IV PUSH SCH (19:55)
--- NOTE | 2017-01-04 22:36 | HHI.IDPN ---
Subjective Subjective Remarks Delayed entry - pt seen earlier today around 1530 Events noted Off pressors Pt remains intubated and on mech vent cont to have fever yday up yo 100.5 Antibiotics zosyn, vanco, micafungin Past Medical History BM, ETOHism tobaccoism Allergies: Coded Allergies: Toradol (Verified Allergy, Intermediate, Headache, 12/31/16) Objective . Vital Signs Date Time Temp Pulse Resp B/P Pulse Ox O2 Delivery O2 Flow Rate FiO2 01/04/17 22:00 100 01/04/17 20:50 95 65 01/04/17 20:00 65 01/04/17 20:00 103 01/04/17 20:00 100.5 103 15 101/65 94 100/58 01/04/17 18:00 107 01/04/17 18:00 65 01/04/17 16:02 96 50 01/04/17 16:00 104 01/04/17 16:00 50 01/04/17 16:00 99.6 104 17 94/62 94 99/60 01/04/17 14:00 103 01/04/17 13:57 102 109/70 103/52 01/04/17 12:00 50 01/04/17 12:00 98.9 109 17 99/71 99 120/59 01/04/17 12:00 109 01/04/17 11:56 96 40 01/04/17 11:20 40 01/04/17 10:00 97 01/04/17 10:00 40 01/04/17 08:26 96 40 01/04/17 08:00 40 01/04/17 08:00 101.3 104 12 107/62 98 105/57 01/04/17 08:00 104 01/04/17 06:00 110 01/04/17 04:14 98 40 01/04/17 04:00 40 01/04/17 04:00 98.9 106 25 106/72 98 136/72 01/04/17 04:00 106 01/04/17 02:00 90 01/04/17 00:04 98 40 01/04/17 00:00 91 01/04/17 00:00 40 01/04/17 00:00 98.9 91 15 96/62 98 94/57 01/03/17 01/03/17 01/04/17 15:00 23:00 07:00 Intake Total 1333 ml 895 ml 900 ml Output Total 750 ml 1000 ml 1100 ml Balance 583 ml -105 ml -200 ml IV Total 1333 ml 640 ml 510 ml Tube Feeding 215 ml 350 ml Tube Irrigant 40 ml 40 ml Output Urine Total 750 ml 1000 ml 1100 ml Stool Total 0 ml 0 ml Tube Feeding Residual Discard 0 ml 0 ml . Laboratory Tests Test 01/03/17 01/04/17 02:39 03:45 White Blood Count 12.1 TH/MM3 10.3 TH/MM3 Red Blood Count 2.85 MIL/MM3 2.72 MIL/MM3 Hemoglobin 9.9 GM/DL 9.5 GM/DL Hematocrit 28.1 % 26.8 % Mean Corpuscular Volume 98.5 FL 98.4 FL Mean Corpuscular Hemoglobin 34.9 PG 34.9 PG Mean Corpuscular Hemoglobin 35.4 % 35.5 % Concent Red Cell Distribution Width 13.6 % 13.7 % Platelet Count 229 TH/MM3 242 TH/MM3 Mean Platelet Volume 9.5 FL 9.7 FL Laboratory Tests Test 01/02/17 01/03/17 01/03/17 01/04/17 23:33 02:39 12:00 03:45 Total Creatine Kinase 423 U/L 256 U/L Creatine Kinase MB 1.2 NG/ML Creatine Kinase MB % 0.3 % Troponin I 0.04 NG/ML LESS THAN 0.02 NG/ML Sodium Level 135 MEQ/L 138 MEQ/L Potassium Level 4.8 MEQ/L 4.3 MEQ/L Chloride Level 104 MEQ/L 105 MEQ/L Carbon Dioxide Level 21.5 MEQ/L 23.4 MEQ/L Anion Gap 10 MEQ/L 10 MEQ/L Blood Urea Nitrogen 41 MG/DL 28 MG/DL Creatinine 3.89 MG/DL 2.49 MG/DL Estimat Glomerular Filtration 16 ML/MIN 27 ML/MIN Rate Random Glucose 200 MG/DL 146 MG/DL Calcium Level 7.7 MG/DL 7.8 MG/DL Phosphorus Level 4.0 MG/DL Microbiology Date/Time Procedure Status Source Growth 01/02/17 14:50 Aerobic Blood Culture - Preliminary Resulted Blood Peripheral NO GROWTH IN 2 DAYS 01/02/17 14:50 Anaerobic Blood Culture - Preliminary Resulted Blood Peripheral NO GROWTH IN 2 DAYS 01/02/17 15:00 Aerobic Blood Culture - Preliminary Resulted Blood Peripheral NO GROWTH IN 2 DAYS 01/02/17 15:00 Anaerobic Blood Culture - Preliminary Resulted Blood Peripheral NO GROWTH IN 2 DAYS 01/02/17 16:15 Aerobic Blood Culture - Preliminary Resulted Blood Peripheral NO GROWTH IN 2 DAYS 01/02/17 16:15 Anaerobic Blood Culture - Preliminary Resulted Blood Peripheral NO GROWTH IN 2 DAYS 01/02/17 16:30 Aerobic Blood Culture - Preliminary Resulted Blood Peripheral NO GROWTH IN 2 DAYS 01/02/17 16:30 Anaerobic Blood Culture - Preliminary Resulted Blood Peripheral NO GROWTH IN 2 DAYS 01/02/17 17:35 Gram Stain - Final Complete Sputum Endotracheal 01/02/17 17:35 Sputum Culture - Final Complete Sputum Endotracheal LIGHT GROWTH NORMAL RESPIRATORY CAMRYN 01/02/17 17:35 Urine Culture - Final Complete Urine Catheterized Urine NO GROWTH IN 48 HOURS. 01/04/17 12:34 Aerobic Blood Culture Received Blood Peripheral Pending 01/04/17 12:34 Anaerobic Blood Culture Received Blood Peripheral Pending 01/04/17 12:38 Aerobic Blood Culture Received Blood Peripheral Pending 01/04/17 12:38 Anaerobic Blood Culture Received Blood Peripheral Pending 01/04/17 13:40 Urine Culture Received Urine Catheterized Urine Pending 01/04/17 17:00 Gram Stain Received Sputum Endotracheal Pending 01/04/17 17:00 Sputum Culture Received Sputum Endotracheal Pending Imaging Last Impressions Chest X-Ray 01/03/17 0600 Signed Impressions: Service Date/Time: December 04:02 - CONCLUSION: Unchanged bilateral pulmonary infiltrates. Issa Wills Jr., MD Chest CT 01/02/17 1645 Signed Impressions: Service Date/Time: Monday, January 02, 2017 22:10 - CONCLUSION: 1. Acute development of bilateral airspace disease as above with some peripheral sparing , especially at the bases. Findings nonspecific. Patient may be developing ARDS/diffuse alveolar damage. Other considerations include infection and severe hypersensitivity type reaction. 2. Endotracheal tube, nasogastric tube and left central line in satisfactory position. Christopher Lagos MD Head CT 01/02/17 0000 Signed Impressions: Service Date/Time: Monday, January 02, 2017 22:08 - CONCLUSION: Normal examination for a patient of this age. No significant change has occurred. Christopher Lagos MD Lower Extremity Ultrasound 01/01/17 0000 Signed Impressions: Service Date/Time: Sunday, January 01, 2017 13:26 - CONCLUSION: Normal examination. Pk Ricks MD Lower Extremity MRI 01/01/17 0000 Signed Impressions: Service Date/Time: Sunday, January 01, 2017 20:03 - CONCLUSION: Subcutaneous soft tissue edema distal leg. No evidence of osteomyelitis of the tibia or fibula. Issa Christiansen MD Foot X-Ray 01/01/17 Signed Impressions: Service Date/Time: Sunday, January 01, 2017 04:49 - CONCLUSION: No acute abnormality. Prior left toe amputation. Issa Wills Jr., MD Foot MRI 01/01/17 Signed Impressions: Service Date/Time: Sunday, January 01, 2017 20:03 - CONCLUSION: 1. Prominent subcutaneous soft tissue edema about the foot and ankle. 2. Abnormal signal in the distal metatarsal head of the 4th digit, characterized by T1 and T2 prolongation. Differential considerations include healing fracture and osteomyelitis. 3. Probable Aburto's neuroma in the interspace between the distal 2nd and 3rd metatarsal bones. Issa Christiansen MD Abdomen/Pelvis CT 12/31/161938 Signed Impressions: Service Date/Time: Saturday, December 31, 2016 22:46 - CONCLUSION: 1. No acute abnormality to explain the patient's pain. 2. Colonic diverticulosis. No acute inflammation. 3. Suspected small calcified gallstone. The gallbladder is nondilated. 4. 4.2 cm left adrenal gland adenoma. Issa Wills Jr., MD Abdomen X-Ray 12/31/16 Signed Impressions: Service Date/Time: Saturday, December 31, 2016 19:25 - CONCLUSION: Unremarkable study except for stool. Lela Stephens MD Physical Exam CONSTITUTIONAL/GENERAL: This is an obese patient, in no apparent distress. sedated int'd on [facility] vent TUBES/LINES/DRAINS: SKIN: No jaundice, rashes, or lesions. Skin temperature appropriate. Not diaphoretic. HEAD: Atraumatic. Normocephalic. EYES: Pupils equal and round and reactive. Extraocular motions intact. No scleral icterus. No injection or drainage. Fundi not examined. ENT: Oral mucosae moist, dentition poor orally int'd NECK: Trachea midline. Supple, nontender. CARDIOVASCULAR: Regular rate and rhythm without murmurs, gallops, or rubs. No JVD. Peripheral pulses symmetric. RESPIRATORY/CHEST: Symmetric, unlabored respirations. Clear to auscultation. Breath sounds equal bilaterally. No wheezes, rales, or rhonchi. GASTROINTESTINAL: Abdomen soft, non-tender, nondistended. No hepato-splenomegaly , or palpable masses. No guarding. Bowel sounds present. GENITOURINARY: Without palpable bladder distension. Chamorro catheter in place with slightly cloudy yellow urine MUSCULOSKELETAL: Extremities without clubbing, cyanosis, or edema. LYMPHATICS: No palpable cervical or supraclavicular adenopathy. NEUROLOGICAL: sedated unresponsive PSYCHIATRIC: unable to assess Assessment & Plan Remarks Admitted for obstructive uropathy and ARF Acute renal failurelikely post obstructive Rhabdomyolysis Acute urinary retention Left heel chronic diabetic ulcer, no e/o osteo of L heel - growing enterococccus from surface clx ? significance - this is definetely not the source of pt possible sepsis ? new sepsis : source urinaty, endovasc ? with ARDS New issue: acute VDRF Hypoxia with new infiltrates ? ARDS ? 2/2 sepsis vs aspiration pneumonitis ve atypical PNA - cont zosyn, vancomycin, micafungin - fu all P clx dw RN Mi Ospina MD Jan 04, 2017 22:35
[2017-01-05] VITALS (18 sets, daily range): BP systolic 97–123; BP diastolic 58–71; PULSE 92–102; RESP 15–18; TEMP 97.9–99.8; O2SAT 0–99
[2017-01-05] MEDS: PROPOFOL 1000 MG/100 ML INJ 100 ML IV SCH ×8 (01:22→23:47)
[2017-01-05] MEDS: PIPERACIL-TAZO 3.375 GM PREMIX 50 ML IV SCH ×3 (01:22→16:41)
[2017-01-05] MEDS: fentaNYL DRIP 250 ML IV SCH ×3 (01:23→22:00)
[2017-01-05] MEDS: CHLORHEXIDINE GLUCONATE 2 % 1 PACK (2 CLOTHS)(taper/protocol) TOPICAL SCH (01:27)
[2017-01-05] MEDS: LORazepam 2 MG/ML VIAL IV PRN (01:56)
--- NOTE | 2017-01-05 02:37 | RADRPT ---
EXAM DATE/TIME: 01/05/2017 01:39 [place] COMPARISON: CHEST SINGLE AP, January 03, 2017, 4:02. INDICATIONS : Shortness of breath, possible pulmonary disease. MEDICAL HISTORY : Diabetes mellitus type II. Renal insufficiency. Cardiovascular disease. SURGICAL HISTORY : None. ENCOUNTER: Subsequent ACUITY: 1 week PAIN SCORE: Non-responsive. LOCATION: Bilateral chest FINDINGS: ET tube, left internal jugular central line and NG tube are well placed. The heart size is within nor mal lungs. There are alveolar consolidations seen throughout the lungs being worse on the right. CONCLUSION: Worsening diffuse alveolar consolidation likely representing worsening edema. Pk Rivera MD on January 05, 2017 at 2:34 Board Certified Radiologist. This report was verified electronically.
[2017-01-05] MEDS: RESP: ALBUTEROL 2.5 MG/IPRATROPIUM 0.5 MG NEB (SCH) INH ×4 (03:56→21:05)
[2017-01-05 05:27] LABS: AUTOMATED NEUTROPHIL # 9.7 TH/MM3 (1.8-7.7); BASOPHIL # 0.1 TH/MM3 (0-0.2); EOSINOPHIL % 7.8 % (0.0-4.0); HEMATOCRIT 26.7 % (39.0-51.0); LYMPH % 11.7 % (9.0-44.0); LYMPHOCYTE # 1.6 TH/MM3 (1.0-4.8); MEAN CELL VOLUME 99.2 FL (80.0-100.0); MEAN CORPUSCULAR HEMOGLOBIN 34.8 PG (27.0-34.0); MEAN CORPUSCULAR HGB CONC 35.1 % (32.0-36.0); NEUT % 71.5 % (16.0-70.0); PLATELET COUNT 274 TH/MM3 (150-450); RED BLOOD COUNT 2.69 MIL/MM3 (4.50-5.90); RED CELL DISTRIBUTION WIDTH 13.8 % (11.6-17.2); WHITE BLOOD COUNT 13.5 TH/MM3 (4.0-11.0)
[2017-01-05 05:28] LABS: BICARBONATE 23.7 MEQ/L (21.0-32.0); CALCIUM-PROTEIN CORRECTED 7.8 MG/DL (8.5-10.1); MAGNESIUM 1.8 MG/DL (1.5-2.5); POTASSIUM 4.6 MEQ/L (3.5-5.1); TOTAL BILIRUBIN ADULT 0.4 MG/DL (0.2-1.0)
[2017-01-05 05:40] LABS: HEMO FLAGS AUTO DIFF
[2017-01-05] MEDS: SODIUM CHLOR 0.9% 1000 ML INJ 1,000 ML IV SCH (05:50)
[2017-01-05] MEDS: INSULIN NovoLIN REGULAR SUPPLEMENTAL SCALE SQ SCH ×3 (05:51→17:25)
[2017-01-05] MEDS: HEPARIN SODIUM - SQ 10,000 UNITS/ML VIAL SQ SCH ×3 (05:54→21:37)
[2017-01-05] MEDS ORDERED: PHARMACY ORDERED LAB ONE (06:00)
[2017-01-05 07:07] LABS: BLOOD GAS BASE EXCESS -5.4 mmol/L (-2-2); BLOOD GAS CARBOXYHEMOGLOBIN 1.5 % (0-4); BLOOD GAS HCO3 20 mmol/L (22-26); BLOOD GAS METHEMOGLOBIN 1.4 % (0-2); BLOOD GAS O2 HGB SATURATION 95 % (90-100); BLOOD GAS OXYGEN CONTENT 12.3 Vol % (12.0-20.0); BLOOD GAS PCO2 41 mmHg (38-42); BLOOD GAS PO2 108 mmHg (61-120); BLOOD GAS TOTAL HGB 9.1 G/DL (12.0-16.0); CRITICAL VALUE NO; DRAW SITE ALINE; FIO2 65 %; OXYGEN DEVICE VENTILATOR; STAT YES; TEMP CORR TO 98.6; ULNAR PULSE PRESENT; VENT SETTINGS PRVC15/500/1.0/+8
[2017-01-05] MEDS: DOCUSATE SODIUM 100 MG/10 ML UDC PO SCH ×2 (08:03→20:10)
[2017-01-05] MEDS: SENNOSIDES SYRUP 8.8 MG/5 ML CUP PO SCH (08:03)
[2017-01-05] MEDS: MULTIVITAMIN TAB PO SCH (08:04)
[2017-01-05] MEDS: SODIUM CHLORIDE 0.9% FLUSH 10 ML FLUSH IV FLUSH SCH ×2 (08:04→20:10)
[2017-01-05] MEDS: COLLAGENASE OINT 30 GM TUBE TOPICAL SCH (08:04)
[2017-01-05] MEDS: ASPIRIN EC 81 MG TABEC PO SCH (08:04)
[2017-01-05] MEDS: TAMSULOSIN HCL 0.4 MG CAP PO SCH (08:05)
--- NOTE | 2017-01-05 08:05 | HHI.CCPN ---
Subjective Remarks/Hospital Course Hospital Course: This is a 56-year-old male who originally came into the emergency department with his left foot wound. He was admitted for IV antibiotics and cellulitis, possible osteomyelitis of the foot. He was seen by Dr. Ospina with infectious disease who felt that this was likely chronic osteo and not acute. Overnight last night he became acutely delirious, and has a very strong alcohol history, and was thought most likely to be an alcohol withdrawal. He was given Ativan. This morning, he was much more somnolent. This afternoon a rapid response was called because the patient was unresponsive. When I arrived, the patient had a oxygen saturation of 30% with a good plethysmograph waveform. He was emergently transferred to the ICU and intubated. He had a chest x-ray showing bilateral pulmonary protrudes in all lobes, more suggestive of ARDS. The patient was tachycardic, febrile, very septic appearing. He is toxic. Unfortunately, the patient is unresponsive and cannot provide any additional history. Subjective: 01/03: remains intubated, sedated. persistent bilateral infiltrates. likely ARDS. remains on vasopressors. 01/04: Continued to spike fever 101.3 Tmax. Chest x-ray shows continued bilateral infiltrates/ARDS. Remains on Levophed at 4 mics per minute. Currently on Zosyn and micafungin, vancomycin added for additional gram- positive coverage 01/05: Continues to be hypoxemic currently on FiO2 65%. Chest x-ray shows worsening bilateral pulmonary edema. Fever trending down currently on vancomycin Zosyn and micafungin. Azithromycin added for atypical coverage. I will also increase PEEP to 12, stop IV fluids and give 2 mg IV Bumex Objective Vital Signs Date Time Temp Pulse Resp B/P Pulse Ox O2 Delivery O2 Flow Rate FiO2 01/05/17 07:43 93 50 01/05/17 06:00 94 01/05/17 04:00 98.9 15 97/61 110/63 01/03/17 07:00 Mechanical Ventilator 01/01/17 18:11 3.00 Intake and Output 01/04/17 01/04/17 01/05/17 08:00 16:00 00:00 Intake Total 900 ml 1621 ml 1435 ml Output Total 1100 ml 1425 ml 300.0 ml Balance -200 ml 196 ml 1135.0 ml Result Diagram: 01/05/175 01/05/175 Other Results Microbiology Date/Time Procedure Status Source Growth 01/02/17 17:35 Gram Stain - Final Complete Sputum Endotracheal 01/02/17 17:35 Sputum Culture - Final Complete Sputum Endotracheal LIGHT GROWTH NORMAL RESPIRATORY CAMRYN 01/02/17 17:35 Urine Culture - Final Complete Urine Catheterized Urine NO GROWTH IN 48 HOURS. Laboratory Tests Test 01/05/17 06:56 Blood Gas Puncture Site HERVE Blood Gas Patient Temperature 98.6 Blood Gas HCO3 20 mmol/L (22-26) Blood Gas Base Excess -5.4 mmol/L (-2-2) Blood Gas Oxygen Saturation 95 % (90-100) Arterial Blood pH 7.31 (7.380-7.420) Arterial Blood Partial 41 mmHg (38-42) Pressure CO2 Arterial Blood Partial 108 mmHg Pressure O2 (61-120) Arterial Blood Oxygen Content 12.3 Vol % (12.0-20.0) Arterial Blood 1.5 % (0-4) Carboxyhemoglobin Arterial Blood Methemoglobin 1.4 % (0-2) Blood Gas Hemoglobin 9.1 G/DL (12.0-16.0) Oxygen Delivery Device VENTILATOR Blood Gas Ventilator Setting PRVC15/500/1.0/+8 Blood Gas Inspired Oxygen 65 % Imaging Last Impressions Chest X-Ray 01/03/17 0600 Signed Impressions: Service Date/Time: December 04:02 - CONCLUSION: Unchanged bilateral pulmonary infiltrates. Issa Wills Jr., MD Chest CT 01/02/17 1645 Signed Impressions: Service Date/Time: Monday, January 02, 2017 22:10 - CONCLUSION: 1. Acute development of bilateral airspace disease as above with some peripheral sparing , especially at the bases. Findings nonspecific. Patient may be developing ARDS/diffuse alveolar damage. Other considerations include infection and severe hypersensitivity type reaction. 2. Endotracheal tube, nasogastric tube and left central line in satisfactory position. Christopher Lagos MD Head CT 01/02/17 0000 Signed Impressions: Service Date/Time: Monday, January 02, 2017 22:08 - CONCLUSION: Normal examination for a patient of this age. No significant change has occurred. Christopher Lagos MD Lower Extremity Ultrasound 01/01/17 0000 Signed Impressions: Service Date/Time: Sunday, January 01, 2017 13:26 - CONCLUSION: Normal examination. Pk Ricks MD Lower Extremity MRI 01/01/17 0000 Signed Impressions: Service Date/Time: Sunday, January 01, 2017 20:03 - CONCLUSION: Subcutaneous soft tissue edema distal leg. No evidence of osteomyelitis of the tibia or fibula. Issa Christiansen MD Foot X-Ray 01/01/17 0000 Signed Impressions: Service Date/Time: Sunday, January 01, 2017 04:49 - CONCLUSION: No acute abnormality. Prior left toe amputation. Issa Wills Jr., MD Foot MRI 01/01/17 0000 Signed Impressions: Service Date/Time: Sunday, January 01, 2017 20:03 - CONCLUSION: 1. Prominent subcutaneous soft tissue edema about the foot and ankle. 2. Abnormal signal in the distal metatarsal head of the 4th digit, characterized by T1 and T2 prolongation. Differential considerations include healing fracture and osteomyelitis. 3. Probable Aburto's neuroma in the interspace between the distal 2nd and 3rd metatarsal bones. Issa Christiansen MD Abdomen/Pelvis CT 12/31/161938 Signed Impressions: Service Date/Time: Saturday, December 31, 2016 22:46 - CONCLUSION: 1. No acute abnormality to explain the patient's pain. 2. Colonic diverticulosis. No acute inflammation. 3. Suspected small calcified gallstone. The gallbladder is nondilated. 4. 4.2 cm left adrenal gland adenoma. Issa Wills Jr., MD Abdomen X-Ray 12/31/16 0000 Signed Impressions: Service Date/Time: Saturday, December 31, 2016 19:25 - CONCLUSION: Unremarkable study except for stool. Lela Stephens MD Objective Remarks GENERAL: Middle-aged male, lying in bed, intubated, sedated. critically ill. HEENT: Pupils equal, round, reactive, conjugate. Normocephalic. Atraumatic. Mucous membranes are moist NECK: Obese neck. Unable to assess JVD. 8.[address] CHEST: Decreased air entry bilaterally. Coarse rales throughout all lung aguirre. PRVC/15/500/12/55%. CARDIOVASCULAR: Normal rate, regular rhythm. No appreciable murmurs. ABDOMEN: Obese, soft, nontender, nondistended. No guarding. MUSCULOSKELETAL: 1+ peripheral edema. Distal pulses 2+. There is a small area on his left heel with a nonhealing ulcer. There is no purulence coming from this. NEUROLOGICAL: RASS -2. Does not follow commands. Briskly Purposeful. withdraws x 4 A/P Assessment and Plan Assessment: This is a 56-year-old male with diabetes, left foot nonhealing wound , alcohol dependence, who presents now with acute hypoxic respiratory failure. At this point likely ARDS, aspiration pneumonitis and volume overload could be in the differential diagnosis. His SVV and lactate both improved with iv hydration and volume resuscitation, making volume overload unlikely. follow up cultures, continue broad spectrum abx. For now remains very critically ill with likely ARDS, and renal failure Plan by systems: Neurologic: Metabolic encephalopathy Alcohol withdrawal Agitated delirium Propofol, fentanyl for goal RASS -2. PRN Ativan for breakthrough agitation --No sedation vacation due to worsening ARDS IV thiamine, multivitamin Frequent neuro checks ammonia 20 on 01/02. Respiratory: Acute hypoxic respiratory failure ARDS Aspiration pneumonitis Vent bundle Head of bed at 30 Wean FiO2 for goal SPO2 greater than 90% Low tidal volume ventilation targeting 6 kg ideal body weight PEEP of 12. This has not been designated criteria due to severe hypoxia Cardiovascular: Sinus tachycardia Septic shock 2d echo-pending Norepinephrine for goal map greater then 65-now off ---Stop IV fluids and give Bumex 2 mg IV 1 Renal: Acute kidney injury Likely prerenal/ATN secondary to sepsis. --Strict I/Os Chamorro Every hour urine outputs --Creat improved from 2.5 to 2 ---Stop IV fluids and give Bumex 2 mg IV 1 due to worsening respiratory status FEN/GI: Acute protein calorie malnutritionmild Hyperkalemia Hypomagnesemia Trend BMP --TF, glucerna 1.5, goal of 50, nutrition consult. Heme/ID: Left foot nonhealing ulceration Septic shock 01/02 sputum: NGTD --01/02 blood: NGTD --01/02 urine: NGTD. --01/02 heel wound culture enterococcus sensitive to ampicillin --F/u cultures from 01/04 Continue Zosyn, micafungin and vancomycin. Azithromycin added for atypical coverage ID: Dr. Ospina following Daily CBC procalcitonin elevated at 8. likely bacterial infection. Endocrine: Diabetes Hyperglycemia of critical illness -- SSI, medium scale, every 6 Prophylaxis: GI Prophylaxis Protonix DVT Prophylaxis -- SCDs Subcutaneous heparin Lines: 4/5 left radial arterial line 4/5 left IJ triple-lumen catheter Chamorro Dispo: remain in the ICU. He remains critically ill. This patient remains critically ill with one or more organ systems which are or may become a threat to life. I have spent in excess of 40 minutes discontinuously in the care and management of this patient. This time is exclusive of procedures, and includes, but is not limited to, evaluation of the patient, review of the medical record, discussions with family, consultants, nursing staff, or respiratory therapy, and documentation in the medical record. Meliza Whittington MD Jan 05, 2017 08:05
[2017-01-05] MEDS: CHLORHEXIDINE 0.12% (ORAL KIT) 15 ML CUP MT SCH ×2 (08:06→20:10)
[2017-01-05] MEDS ORDERED: BUMETANIDE INJ 1 MG/4 ML VIAL IV PUSH ONE (08:30)
[2017-01-05] MEDS ORDERED: AZITHROMYCIN INJ 500 MG in SODIUM CHLOR 0.9% 250 ML INJ 250 ML IV SCH (09:00)
[2017-01-05] MEDS ORDERED: VANCOMYCIN INJ 1,750 MG in SODIUM CHLORID 0.9% 500 ML INJ 500 ML IV ONE (10:00)
[2017-01-05 10:48] LABS: BANDS 7 % (0-6); BASOPHILS 1 % (0-2); EOSINOPHILS 6 % (0-4); NEUTROPHIL # MANUAL DIFF 9.9 TH/MM3 (1.8-7.7); POLYS (SEG NEUTROPHILS) 66 % (16-70); WBC DIFF SAMPLE 100
[2017-01-05 10:49] LABS: ACANTHOCYTES 1+ (NORMAL); PLATELET ESTIMATE SMEAR NORMAL (NORMAL); PLATELET MORPHOLOGY NORMAL (NORMAL); SCAN/DIFF FINAL DIFF MANUAL
--- NOTE | 2017-01-05 11:44 | HHI.NPPN ---
Subjective History of Present Illness 56 year old with ARF sepsis left heel ulcer Additional Remarks Patient remains intubated Review of Systems General Constitutional: Fatigue Objective Data Data 01/04/17 01/05/17 19:00 07:00 Intake Total 1621 ml 3410 ml Output Total 1425 ml 750.0 ml Balance 196 ml 2660.0 ml IV Total 901 ml 2510 ml Tube Feeding 720 ml 820 ml Tube Irrigant 80 ml Output Urine Total 1425 ml 750 ml Stool Total 0 ml Tube Feeding Residual Discard 0 ml # Bowel Movements 1 Vital Signs Date Time Temp Pulse Resp B/P Pulse Ox O2 Delivery O2 Flow Rate FiO2 01/05/17 09:55 97 50 01/05/17 07:43 93 50 01/05/17 06:00 94 01/05/17 04:00 98.9 95 15 97/61 96 110/63 01/05/17 04:00 65 01/05/17 04:00 95 01/05/17 03:58 96 65 01/05/17 02:00 97 01/05/17 00:00 98 01/05/17 00:00 65 01/05/17 00:00 99.8 98 15 97/61 95 97/58 01/04/17 23:48 95 65 01/04/17 22:00 100 01/04/17 20:50 95 65 01/04/17 20:00 65 01/04/17 20:00 103 01/04/17 20:00 100.5 103 15 101/65 94 100/58 01/04/17 18:00 107 01/04/17 18:00 65 01/04/17 16:02 96 50 01/04/17 16:00 104 01/04/17 16:00 50 01/04/17 16:00 99.6 104 17 94/62 94 99/60 01/04/17 14:00 103 01/04/17 13:57 102 109/70 103/52 01/04/17 12:00 50 01/04/17 12:00 98.9 109 17 99/71 99 120/59 01/04/17 12:00 109 01/04/17 11:56 96 40 -: 01/05/17 0315 01/05/17 0315 Microbiology 01/04/17 Aerobic Blood Culture - Preliminary, Resulted NO GROWTH IN 1 DAY 01/04/17 Anaerobic Blood Culture - Preliminary, Resulted NO GROWTH IN 1 DAY 01/04/17 Aerobic Blood Culture - Preliminary, Resulted NO GROWTH IN 1 DAY 01/04/17 Anaerobic Blood Culture - Preliminary, Resulted NO GROWTH IN 1 DAY 01/04/17 Urine Culture, Received Pending 01/04/17 Gram Stain - Final, Resulted 01/04/17 Sputum Culture, Resulted Pending Physical Exam General Appearance: Well Developed Neck Neck Exam: Neck Supple Pulmonary Resp Exam: Clear Bilaterally Cardiology CV Exam: Regular, Normal Sinus Rhythm Gastrointestinal/Abdomen GI Exam: Soft, Non-Tender Assessment/Plan Problem List: (1) Acute renal failure Plan: BIMAL with ATN Creatinine continues to improve, with increasing UOP Good response to bumex with good UOP 2mg IV ordered today. If good response to Bumex with good creatinine tomorrow, can continue with bumex 1mg IV BID. Caution with vancomycin - continue to closely monitor levels and stop when possible. (2) Sepsis Plan: Patient is on vancomycin, Zosyn and micafungin possible source is left heel ulcer showing a growth of group D enterococcus (3) DM (diabetes mellitus) Plan: Follow blood glucose (4) Rhabdomyolysis Plan: resolved (5) Bladder outlet obstruction Plan: Chamorro catheter is in place (6) Metabolic acidosis Plan: resolved Problem Qualifiers (1) Acute renal failure: Qualified Code: N17.0 - Acute renal failure with tubular necrosis (2) Sepsis: Qualified Code: A41.9 - Sepsis, due to unspecified organism (3) Rhabdomyolysis: Qualified Code: M62.82 - Non-traumatic rhabdomyolysis Mauro Hunt MD Jan 05, 2017 11:44
--- NOTE | 2017-01-05 14:03 | HHI.IDPN ---
Subjective Subjective Remarks [facility] 56 y[facility] CM who originally came into the emergency department with his left foot wound. He was admitted for IV antibiotics and cellulitis, possible osteomyelitis of the foot. He was seen by Dr. Ospina with infectious disease who felt that this was likely chronic osteo and not acute. Patient became acutely delirious on the floor and a rapid response was called because the patient was unresponsive. He was emergently transferred to the ICU and intubated. He had a chest x-ray showing bilateral pulmonary infiltrates in all lobes, more suggestive of ARDS. Patient remains in the ICU and was intubated and on vasopressors. CXR with b/l infiltrates ? ARDS. On Zosyn IV and Micafungin IV, vanco IV Continues to be hypoxemic currently on FiO2 65%. Chest x-ray shows worsening bilateral pulmonary edema reviewed by me. Fever trending down Given Bumex for pulm edema On Diprivan and Fentanyl for sedation Left IJ and Left arterial line radial No diarrhea Tolerating tube feeds Secretions moderate beige color. Had to be lavaged bedside twice and bagged overnight to improve sats. UO ok. Antibiotics zosyn, vanco, micafungin Lines Line sites ok. Past Medical History BM, ETOHism tobaccoism Allergies: Coded Allergies: Toradol (Verified Allergy, Intermediate, Headache, 12/31/16) Objective . Vital Signs Date Time Temp Pulse Resp B/P Pulse Ox O2 Delivery O2 Flow Rate FiO2 01/05/17 09:55 97 50 01/05/17 08:00 98.6 95 18 100/61 95 110/67 01/05/17 08:00 65 01/05/17 08:00 95 01/05/17 07:43 93 50 01/05/17 06:00 94 01/05/17 04:00 98.9 95 15 97/61 96 110/63 01/05/17 04:00 65 01/05/17 04:00 95 01/05/17 03:58 96 65 01/05/17 02:00 97 01/05/17 00:00 98 01/05/17 00:00 65 01/05/17 00:00 99.8 98 15 97/61 95 97/58 01/04/17 23:48 95 65 01/04/17 22:00 100 01/04/17 20:50 95 65 01/04/17 20:00 65 01/04/17 20:00 103 01/04/17 20:00 100.5 103 15 101/65 94 100/58 01/04/17 18:00 107 01/04/17 18:00 65 01/04/17 16:02 96 50 01/04/17 16:00 104 01/04/17 16:00 50 01/04/17 16:00 99.6 104 17 94/62 94 99/60 01/04/17 14:00 103 01/04/17 13:57 102 109/70 103/52 01/04/17 01/04/17 01/05/17 15:00 23:00 07:00 Intake Total 1621 ml 1435 ml 1975 ml Output Total 1425 ml 300 ml 450 ml Balance 196 ml 1135 ml 1525 ml IV Total 901 ml 1080 ml 1430 ml Tube Feeding 720 ml 315 ml 505 ml Tube Irrigant 40 ml 40 ml Output Urine Total 1425 ml 300 ml 450 ml Stool Total 0 ml Tube Feeding Residual Discard 0 ml 0 ml # Bowel Movements 1 . Laboratory Tests Test 01/04/17 01/05/17 03:45 03:15 White Blood Count 10.3 TH/MM3 13.5 TH/MM3 Red Blood Count 2.72 MIL/MM3 2.69 MIL/MM3 Hemoglobin 9.5 GM/DL 9.4 GM/DL Hematocrit 26.8 % 26.7 % Mean Corpuscular Volume 98.4 FL 99.2 FL Mean Corpuscular Hemoglobin 34.9 PG 34.8 PG Mean Corpuscular Hemoglobin 35.5 % 35.1 % Concent Red Cell Distribution Width 13.7 % 13.8 % Platelet Count 242 TH/MM3 274 TH/MM3 Mean Platelet Volume 9.7 FL 10.2 FL Neutrophils (%) (Auto) 71.5 % Lymphocytes (%) (Auto) 11.7 % Monocytes (%) (Auto) 8.0 % Eosinophils (%) (Auto) 7.8 % Basophils (%) (Auto) 1.0 % Neutrophils # (Auto) 9.7 TH/MM3 Lymphocytes # (Auto) 1.6 TH/MM3 Monocytes # (Auto) 1.1 TH/MM3 Eosinophils # (Auto) 1.0 TH/MM3 Basophils # (Auto) 0.1 TH/MM3 CBC Comment AUTO DIFF Differential Total Cells 100 Counted Neutrophils % (Manual) 66 % Band Neutrophils % 7 % Lymphocytes % 12 % Monocytes % 8 % Eosinophils % 6 % Basophils % 1 % Neutrophils # (Manual) 9.9 TH/MM3 Differential Comment FINAL DIFF MANUAL Platelet Estimate NORMAL Platelet Morphology Comment NORMAL Acanthocytes 1+ Laboratory Tests Test 01/04/17 01/05/17 03:45 03:15 Sodium Level 138 MEQ/L 139 MEQ/L Potassium Level 4.3 MEQ/L 4.6 MEQ/L Chloride Level 105 MEQ/L 106 MEQ/L Carbon Dioxide Level 23.4 MEQ/L 23.7 MEQ/L Anion Gap 10 MEQ/L 9 MEQ/L Blood Urea Nitrogen 28 MG/DL 23 MG/DL Creatinine 2.49 MG/DL 1.98 MG/DL Estimat Glomerular Filtration 27 ML/MIN 35 ML/MIN Rate Random Glucose 146 MG/DL 184 MG/DL Calcium Level 7.8 MG/DL 7.3 MG/DL Protein Corrected Calcium 7.8 MG/DL Magnesium Level 1.8 MG/DL Total Bilirubin 0.4 MG/DL Aspartate Amino Transf 39 U/L (AST/SGOT) Alanine Aminotransferase 32 U/L (ALT/SGPT) Alkaline Phosphatase 101 U/L Total Protein 6.2 GM/DL Albumin 2.2 GM/DL Microbiology Date/Time Procedure Status Source Growth 01/02/17 14:50 Aerobic Blood Culture - Preliminary Resulted Blood Peripheral NO GROWTH IN 3 DAYS 01/02/17 14:50 Anaerobic Blood Culture - Preliminary Resulted Blood Peripheral NO GROWTH IN 3 DAYS 01/02/17 15:00 Aerobic Blood Culture - Preliminary Resulted Blood Peripheral NO GROWTH IN 3 DAYS 01/02/17 15:00 Anaerobic Blood Culture - Preliminary Resulted Blood Peripheral NO GROWTH IN 3 DAYS 01/02/17 16:15 Aerobic Blood Culture - Preliminary Resulted Blood Peripheral NO GROWTH IN 3 DAYS 01/02/17 16:15 Anaerobic Blood Culture - Preliminary Resulted Blood Peripheral NO GROWTH IN 3 DAYS 01/02/17 16:30 Aerobic Blood Culture - Preliminary Resulted Blood Peripheral NO GROWTH IN 3 DAYS 01/02/17 16:30 Anaerobic Blood Culture - Preliminary Resulted Blood Peripheral NO GROWTH IN 3 DAYS 01/02/17 17:35 Gram Stain - Final Complete Sputum Endotracheal 01/02/17 17:35 Sputum Culture - Final Complete Sputum Endotracheal LIGHT GROWTH NORMAL RESPIRATORY CAMRYN 01/02/17 17:35 Urine Culture - Final Complete Urine Catheterized Urine NO GROWTH IN 48 HOURS. 01/04/17 12:34 Aerobic Blood Culture - Preliminary Resulted Blood Peripheral NO GROWTH IN 1 DAY 01/04/17 12:34 Anaerobic Blood Culture - Preliminary Resulted Blood Peripheral NO GROWTH IN 1 DAY 01/04/17 12:38 Aerobic Blood Culture - Preliminary Resulted Blood Peripheral NO GROWTH IN 1 DAY 01/04/17 12:38 Anaerobic Blood Culture - Preliminary Resulted Blood Peripheral NO GROWTH IN 1 DAY 01/04/17 13:40 Urine Culture Received Urine Catheterized Urine Pending 01/04/17 17:00 Gram Stain - Final Resulted Sputum Endotracheal 01/04/17 17:00 Sputum Culture - Preliminary Resulted Sputum Endotracheal IMMATURE GROWTH - REINCUBATE Imaging Last Impressions Chest X-Ray 01/03/17 0600 Signed Impressions: Service Date/Time: December 04:02 - CONCLUSION: Unchanged bilateral pulmonary infiltrates. Issa Wills Jr., MD Chest CT 01/02/17 1645 Signed Impressions: Service Date/Time: Monday, January 02, 2017 22:10 - CONCLUSION: 1. Acute development of bilateral airspace disease as above with some peripheral sparing , especially at the bases. Findings nonspecific. Patient may be developing ARDS/diffuse alveolar damage. Other considerations include infection and severe hypersensitivity type reaction. 2. Endotracheal tube, nasogastric tube and left central line in satisfactory position. Christopher Lagos MD Head CT 01/02/17 0000 Signed Impressions: Service Date/Time: Monday, January 02, 2017 22:08 - CONCLUSION: Normal examination for a patient of this age. No significant change has occurred. Christopher Lagos MD Lower Extremity Ultrasound 01/01/17 0000 Signed Impressions: Service Date/Time: Sunday, January 01, 2017 13:26 - CONCLUSION: Normal examination. Pk Ricks MD Lower Extremity MRI 01/01/17 0000 Signed Impressions: Service Date/Time: Sunday, January 01, 2017 20:03 - CONCLUSION: Subcutaneous soft tissue edema distal leg. No evidence of osteomyelitis of the tibia or fibula. Issa Christiansen MD Foot X-Ray 01/01/17 0000 Signed Impressions: Service Date/Time: Sunday, January 01, 2017 04:49 - CONCLUSION: No acute abnormality. Prior left toe amputation. Issa Wills Jr., MD Foot MRI 01/01/17 0000 Signed Impressions: Service Date/Time: Sunday, January 01, 2017 20:03 - CONCLUSION: 1. Prominent subcutaneous soft tissue edema about the foot and ankle. 2. Abnormal signal in the distal metatarsal head of the 4th digit, characterized by T1 and T2 prolongation. Differential considerations include healing fracture and osteomyelitis. 3. Probable Aburto's neuroma in the interspace between the distal 2nd and 3rd metatarsal bones. Issa Christiansen MD Abdomen/Pelvis CT 12/31/16 193 Signed Impressions: Service Date/Time: Saturday, December 31, 2016 22:46 - CONCLUSION: 1. No acute abnormality to explain the patient's pain. 2. Colonic diverticulosis. No acute inflammation. 3. Suspected small calcified gallstone. The gallbladder is nondilated. 4. 4.2 cm left adrenal gland adenoma. Issa Wills Jr., MD Abdomen X-Ray 12/31/16 0000 Signed Impressions: Service Date/Time: Saturday, December 31, 2016 19:25 - CONCLUSION: Unremarkable study except for stool. Lela Stephens MD Physical Exam CONSTITUTIONAL/GENERAL: This is an obese patient, in no apparent distress. sedated int'd on [facility] vent TUBES/LINES/DRAINS: SKIN: No jaundice, rashes, or lesions. Skin temperature appropriate. Not diaphoretic. HEAD: Atraumatic. Normocephalic. EYES: Pupils equal and round and reactive. Extraocular motions intact. No scleral icterus. No injection or drainage. Fundi not examined. ENT: Oral mucosae moist, dentition poor orally int'd NECK: Trachea midline. Supple, nontender. CARDIOVASCULAR: Regular rate and rhythm without murmurs, gallops, or rubs. No JVD. Peripheral pulses symmetric. RESPIRATORY/CHEST: Symmetric, unlabored respirations.Breath sounds equal bilaterally. occ creps GASTROINTESTINAL: Abdomen soft, non-tender, nondistended. Bowel sounds present. GENITOURINARY: Without palpable bladder distension. Chamorro catheter in place with slightly cloudy yellow urine MUSCULOSKELETAL: Extremities without clubbing, cyanosis, or edema. LYMPHATICS: No palpable cervical or supraclavicular adenopathy. NEUROLOGICAL: sedated unresponsive PSYCHIATRIC: unable to assess Assessment & Plan Remarks Septic shock likely secondary to aspiration pneumonia Aspiration PNA likely related to alcoholism Admitted for obstructive uropathy and ARF Acute renal failurelikely post obstructive Rhabdomyolysis Acute urinary retention Left heel chronic diabetic ulcer, no e/o osteo of L heel - growing enterococccus from surface clx ? significance - this is likely not the source of pt possible sepsis Hypoxia with new infiltrates ? ARDS ? 2/2 sepsis vs aspiration pneumonitis Recs Continue Zosyn IV Continue Vanco IV (target 15-20) DC Azithro IV DC micafungin IV (source aspiration PNA, no IA sepsis or line infection suspected) Follow cultures to adjust antibiotics. Follow clinically. Guillermina Wallace RN, MD Jan 05, 2017 14:03
[2017-01-05] MEDS: PANTOPRAZOLE SODIUM 40 MG VIAL IV PUSH SCH (20:10)
[2017-01-06] VITALS (18 sets, daily range): BP systolic 99–179; BP diastolic 58–90; PULSE 79–105; RESP 15–19; TEMP 98.3–100; O2SAT 90–100
[2017-01-06] MEDS: PIPERACIL-TAZO 3.375 GM PREMIX 50 ML IV SCH ×3 (00:15→17:56)
[2017-01-06] MEDS: CHLORHEXIDINE GLUCONATE 2 % 1 PACK (2 CLOTHS)(taper/protocol) TOPICAL SCH (02:36)
[2017-01-06] MEDS: PROPOFOL 1000 MG/100 ML INJ 100 ML IV SCH ×7 (02:37→23:56)
[2017-01-06] MEDS: RESP: ALBUTEROL 2.5 MG/IPRATROPIUM 0.5 MG NEB (SCH) INH ×4 (04:20→20:50)
[2017-01-06] MEDS: INSULIN NovoLIN REGULAR SUPPLEMENTAL SCALE SQ SCH ×5 (05:27→23:44)
[2017-01-06] MEDS: HEPARIN SODIUM - SQ 10,000 UNITS/ML VIAL SQ SCH ×3 (05:27→20:47)
[2017-01-06 05:46] LABS: ALT (GPT) 31 U/L (12-78); ANION GAP 6 MEQ/L (5-15); AST (GOT) 33 U/L (15-37); BICARBONATE 26.6 MEQ/L (21.0-32.0); BLOOD UREA NITROGEN 25 MG/DL (7-18); CHLORIDE 108 MEQ/L (98-107); GLOMERULAR FILTRATION RATE 39 ML/MIN (>89); MAGNESIUM 1.9 MG/DL (1.5-2.5); POTASSIUM 4.4 MEQ/L (3.5-5.1); SODIUM (NA) 141 MEQ/L (136-145)
[2017-01-06 05:48] LABS: ALKALINE PHOSPHATASE 112 U/L (45-117); TOTAL BILIRUBIN ADULT 0.4 MG/DL (0.2-1.0)
[2017-01-06 05:56] LABS: AUTOMATED NEUTROPHIL # 8.9 TH/MM3 (1.8-7.7); BASOPHIL # 0.1 TH/MM3 (0-0.2); BASOPHIL % 0.6 % (0.0-2.0); EOSINOPHIL % 8.1 % (0.0-4.0); HEMATOCRIT 25.9 % (39.0-51.0); LYMPH % 10.2 % (9.0-44.0); LYMPHOCYTE # 1.2 TH/MM3 (1.0-4.8); MEAN CELL VOLUME 99.1 FL (80.0-100.0); MEAN CORPUSCULAR HEMOGLOBIN 34.7 PG (27.0-34.0); MONO % 6.1 % (0.0-8.0); PLATELET COUNT 295 TH/MM3 (150-450); RED BLOOD COUNT 2.62 MIL/MM3 (4.50-5.90); RED CELL DISTRIBUTION WIDTH 13.9 % (11.6-17.2); WHITE BLOOD COUNT 11.9 TH/MM3 (4.0-11.0)
[2017-01-06 06:17] LABS: HEMO FLAGS AUTO DIFF
--- NOTE | 2017-01-06 06:31 | RADRPT ---
EXAM DATE/TIME: 01/06/2017 04:53 [place] COMPARISON: CHEST SINGLE AP, January 05, 2017, 1:39. INDICATIONS : Shortness of breath, possible pulmonary disease. MEDICAL HISTORY : Diabetes mellitus type II. Renal insufficiency. Cardiovascular disease. SURGICAL HISTORY : None. ENCOUNTER: Subsequent ACUITY: 1 week PAIN SCORE: Non-responsive. LOCATION: Bilateral chest FINDINGS: ET tube, left internal jugular central line and NG tube are well placed. The heart size is borderline enlarged. There is diffuse alveolar consolidation throughout the lungs. Significant effusions are no t seen. CONCLUSION: Diffuse consolidations likely representing pulmonary edema. Pk Rivera MD on January 06, 2017 at 6:28 Board Certified Radiologist. This report was verified electronically.
[2017-01-06] MEDS: COLLAGENASE OINT 30 GM TUBE TOPICAL SCH (08:20)
[2017-01-06] MEDS: CHLORHEXIDINE 0.12% (ORAL KIT) 15 ML CUP MT SCH ×2 (08:21→20:48)
[2017-01-06] MEDS: MULTIVITAMIN TAB PO SCH (08:23)
[2017-01-06] MEDS: TAMSULOSIN HCL 0.4 MG CAP PO SCH (08:23)
[2017-01-06] MEDS: DOCUSATE SODIUM 100 MG/10 ML UDC PO SCH ×2 (08:23→20:47)
[2017-01-06] MEDS: SENNOSIDES SYRUP 8.8 MG/5 ML CUP PO SCH (08:23)
[2017-01-06] MEDS: THIAMINE HCL 100 MG TAB PO SCH (08:23)
[2017-01-06] MEDS: ASPIRIN EC 81 MG TABEC PO SCH (08:23)
[2017-01-06] MEDS: SODIUM CHLORIDE 0.9% FLUSH 10 ML FLUSH IV FLUSH SCH ×2 (08:23→20:48)
[2017-01-06 09:40] LABS: BANDS 12 % (0-6); BASOPHILS 1 % (0-2); EOSINOPHILS 2 % (0-4); NEUTROPHIL # MANUAL DIFF 9.9 TH/MM3 (1.8-7.7); POLYS (SEG NEUTROPHILS) 71 % (16-70); WBC DIFF SAMPLE 100
[2017-01-06 09:41] LABS: PLATELET ESTIMATE SMEAR NORMAL (NORMAL); PLATELET MORPHOLOGY NORMAL (NORMAL); SCAN/DIFF FINAL DIFF MANUAL
--- NOTE | 2017-01-06 10:08 | HHI.NPPN ---
Subjective History of Present Illness 56 year old with ARF sepsis left heel ulcer Additional Remarks Patient remains intubated Review of Systems General Constitutional: Fatigue Objective Data Data 01/05/17 01/06/17 19:00 07:00 Intake Total 2112 ml 2127 ml Output Total 1850.0 ml 950 ml Balance 262.0 ml 1177 ml IV Total 1595 ml 1229 ml Tube Feeding 427 ml 778 ml Tube Irrigant 90 ml Other 120 ml Output Urine Total 1850 ml 950 ml Tube Feeding Residual Discard 0 ml # Bowel Movements 1 2 Vital Signs Date Time Temp Pulse Resp B/P Pulse Ox O2 Delivery O2 Flow Rate FiO2 01/06/17 08:10 96 50 01/06/17 08:00 79 01/06/17 06:00 90 01/06/17 04:21 97 50 01/06/17 04:00 50 01/06/17 04:00 91 01/06/17 04:00 98.9 91 15 99/63 97 99/58 01/06/17 02:00 96 01/06/17 00:00 98 01/06/17 00:00 50 01/06/17 00:00 99.3 98 16 109/71 94 124/65 01/05/17 22:00 94 01/05/17 21:05 99 50 01/05/17 20:00 50 01/05/17 20:00 98.9 92 15 98/66 96 108/61 01/05/17 20:00 92 01/05/17 18:00 95 01/05/17 16:00 50 01/05/17 16:00 97.9 97 15 99/66 96 123/71 01/05/17 16:00 97 01/05/17 15:28 0 50 01/05/17 14:00 94 01/05/17 13:50 97 50 01/05/17 12:00 102 01/05/17 12:00 50 01/05/17 12:00 98.1 102 16 102/64 95 109/67 -: 01/06/17 0313 01/06/17 0313 Physical Exam General Appearance: Well Developed Neck Neck Exam: Neck Supple Pulmonary Resp Exam: Clear Bilaterally Cardiology CV Exam: Regular, Normal Sinus Rhythm Gastrointestinal/Abdomen GI Exam: Soft, Non-Tender Assessment/Plan Problem List: (1) Acute renal failure Plan: BIMAL with ATN Creatinine continues to improve, with increasing UOP Good response to bumex 2mg IV x1 yesterday Will continue with bumex 1mg IV BID for now. On vancomycin and zosyn per ID Caution with vancomycin - continue to closely monitor levels (2) Sepsis Plan: Patient is on vancomycin, Zosyn - left heel ulcer showing a growth of group D enterococcus Continue to follow with ID (3) DM (diabetes mellitus) Plan: Follow blood glucose (4) Rhabdomyolysis Plan: resolved (5) Bladder outlet obstruction Plan: Chamorro catheter is in place (6) Metabolic acidosis Plan: resolved Problem Qualifiers (1) Acute renal failure: Qualified Code: N17.0 - Acute renal failure with tubular necrosis (2) Sepsis: Qualified Code: A41.9 - Sepsis, due to unspecified organism (3) Rhabdomyolysis: Qualified Code: M62.82 - Non-traumatic rhabdomyolysis Mauro Hunt MD Jan 06, 2017 10:08
[2017-01-06] MEDS ORDERED: BUMETANIDE INJ 1 MG/4 ML VIAL ONE (12:01)
[2017-01-06] MEDS ORDERED: DEXMEDETOMIDINE HCL 200 MCG/2 ML VIAL ONE ×2 (12:18→12:22)
[2017-01-06] MEDS ORDERED: SODIUM CHLORIDE 0.9% INJ 50 ML ONE (12:22)
[2017-01-06] MEDS ORDERED: BUMETANIDE INJ 1 MG/4 ML VIAL IV ONE (13:00)
--- NOTE | 2017-01-06 13:03 | HHI.CCPN ---
Subjective Remarks/Hospital Course Hospital Course: This is a 56-year-old male who originally came into the emergency department with his left foot wound. He was admitted for IV antibiotics and cellulitis, possible osteomyelitis of the foot. He was seen by Dr. Ospina with infectious disease who felt that this was likely chronic osteo and not acute. Overnight last night he became acutely delirious, and has a very strong alcohol history, and was thought most likely to be an alcohol withdrawal. He was given Ativan. This morning, he was much more somnolent. This afternoon a rapid response was called because the patient was unresponsive. When I arrived, the patient had a oxygen saturation of 30% with a good plethysmograph waveform. He was emergently transferred to the ICU and intubated. He had a chest x-ray showing bilateral pulmonary protrudes in all lobes, more suggestive of ARDS. The patient was tachycardic, febrile, very septic appearing. He is toxic. Unfortunately, the patient is unresponsive and cannot provide any additional history. Subjective: 01/03: remains intubated, sedated. persistent bilateral infiltrates. likely ARDS. remains on vasopressors. 01/04: Continued to spike fever 101.3 Tmax. Chest x-ray shows continued bilateral infiltrates/ARDS. Remains on Levophed at 4 mics per minute. Currently on Zosyn and micafungin, vancomycin added for additional gram- positive coverage 01/05: Continues to be hypoxemic currently on FiO2 65%. Chest x-ray shows worsening bilateral pulmonary edema. Fever trending down currently on vancomycin Zosyn and micafungin. Azithromycin added for atypical coverage. I will also increase PEEP to 12, stop IV fluids and give 2 mg IV Bumex 01/06: FiO2 down to 45%. PEEP remains at 12. 2.8 L urine output creatinine slightly improved to 1.8. Received 2 mg Bumex yesterday, nephrology has started scheduled Bumex 1 mg every 12 today. Chest x-ray shows persistent ARDS/ pulmonary edema Objective Vital Signs Date Time Temp Pulse Resp B/P Pulse Ox O2 Delivery O2 Flow Rate FiO2 01/06/17 12:00 45 01/06/17 12:00 96 01/06/17 10:00 90 01/06/17 08:00 98.3 15 107/70 110/61 01/03/17 07:00 Mechanical Ventilator Intake and Output 01/05/17 01/05/17 01/06/17 08:00 16:00 00:00 Intake Total 1975 ml 2112 ml 1096 ml Output Total 450.0 ml 1850.0 ml 500 ml Balance 1525.0 ml 262.0 ml 596 ml Result Diagram: 01/06/17 0313 01/06/17 0313 Other Results Microbiology Date/Time Procedure Status Source Growth 01/04/17 13:40 Urine Culture - Final Complete Urine Catheterized Urine NO GROWTH IN 48 HOURS. 01/04/17 17:00 Gram Stain - Final Complete Sputum Endotracheal 01/04/17 17:00 Sputum Culture - Final Complete Sputum Endotracheal LIGHT GROWTH NORMAL RESPIRATORY [facility] Imaging Last Impressions Chest X-Ray 01/03/17 0600 Signed Impressions: Service Date/Time: December 04:02 - CONCLUSION: Unchanged bilateral pulmonary infiltrates. Issa Wills Jr., MD Chest CT 01/02/17 1645 Signed Impressions: Service Date/Time: Monday, January 02, 2017 22:10 - CONCLUSION: 1. Acute development of bilateral airspace disease as above with some peripheral sparing , especially at the bases. Findings nonspecific. Patient may be developing ARDS/diffuse alveolar damage. Other considerations include infection and severe hypersensitivity type reaction. 2. Endotracheal tube, nasogastric tube and left central line in satisfactory position. Christopher Lagos MD Head CT 01/02/17 0000 Signed Impressions: Service Date/Time: Monday, January 02, 2017 22:08 - CONCLUSION: Normal examination for a patient of this age. No significant change has occurred. Christopher Lagos MD Lower Extremity Ultrasound 01/01/17 Signed Impressions: Service Date/Time: Sunday, January 01, 2017 13:26 - CONCLUSION: Normal examination. Pk Ricks MD Lower Extremity MRI 01/01/17 Signed Impressions: Service Date/Time: Sunday, January 01, 2017 20:03 - CONCLUSION: Subcutaneous soft tissue edema distal leg. No evidence of osteomyelitis of the tibia or fibula. Issa Christiansen MD Foot X-Ray 01/01/17 Signed Impressions: Service Date/Time: Sunday, January 01, 2017 04:49 - CONCLUSION: No acute abnormality. Prior left toe amputation. Issa Wills Jr., MD Foot MRI 4/4/17 0000 Signed Impressions: Service Date/Time: Sunday, January 01, 2017 20:03 - CONCLUSION: 1. Prominent subcutaneous soft tissue edema about the foot and ankle. 2. Abnormal signal in the distal metatarsal head of the 4th digit, characterized by T1 and T2 prolongation. Differential considerations include healing fracture and osteomyelitis. 3. Probable Aburto's neuroma in the interspace between the distal 2nd and 3rd metatarsal bones. Issa Christiansen MD Abdomen/Pelvis CT [id number] Signed Impressions: Service Date/Time: Saturday, December 31, 2016 22:46 - CONCLUSION: 1. No acute abnormality to explain the patient's pain. 2. Colonic diverticulosis. No acute inflammation. 3. Suspected small calcified gallstone. The gallbladder is nondilated. 4. 4.2 cm left adrenal gland adenoma. Issa Wills Jr., MD Abdomen X-Ray 12/31/16 0000 Signed Impressions: Service Date/Time: Saturday, December 31, 2016 19:25 - CONCLUSION: Unremarkable study except for stool. KMarlo Stephens MD Objective Remarks GENERAL: Middle-aged male, lying in bed, intubated, sedated. critically ill. HEENT: Pupils equal, round, reactive, conjugate. Normocephalic. Atraumatic. Mucous membranes are moist NECK: Obese neck. Unable to assess JVD. 8.[address] CHEST: Decreased air entry bilaterally. Coarse rales throughout all lung aguirre. PRVC/15/500/12/45%. Just placed on CPAP 09/06 CARDIOVASCULAR: Normal rate, regular rhythm. No appreciable murmurs. ABDOMEN: Obese, soft, nontender, nondistended. No guarding. MUSCULOSKELETAL: 1+ peripheral edema. Distal pulses 2+. There is a small area on his left heel with a nonhealing ulcer. NEUROLOGICAL: RASS -2. Does not follow commands. Purposeful. withdraws x 4 Urinary Catheter: Yes Assessment to: Continue A/P Assessment and Plan Assessment: This is a 56-year-old male with diabetes, left foot nonhealing wound , alcohol dependence, who presents now with acute hypoxic respiratory failure. At this point likely ARDS, aspiration pneumonitis and volume overload could be in the differential diagnosis. Follow up cultures, continue broad spectrum ABX. For now remains very critically ill with likely ARDS, and renal failure Plan by systems: Neurologic: Metabolic encephalopathy Alcohol withdrawal Agitated delirium Propofol, fentanyl for goal RASS -2. PRN Ativan for breakthrough agitation --Start Precedex to facilitate ventilator weaning 01/06 --Start daily sedation vacation 01/06 IV thiamine, multivitamin Frequent neuro checks ammonia 20 on 01/02. Respiratory: Acute hypoxic respiratory failure ARDS Aspiration pneumonitis Vent bundle, Head of bed at 30 Wean FiO2 for goal SPO2 greater than 90% Low tidal volume ventilation targeting 6 kg ideal body weight PEEP of 12 reduce to 8, start SBT Clinically not ready for extubation Cardiovascular: Sinus tachycardia Septic shock-resolved 2d echo-pending at this time Off all pressors. Hypertensive ---Bumex 1 mg IV q12 scheduled starting today 01/06/17. Received 2 mg yesterday Renal: Acute kidney injury Likely prerenal/ATN secondary to sepsis. --Strict I/Os, Chamorro Every hour urine outputs --Creat improved from 2 to 1.8 --Bumex as above FEN/GI: Acute protein calorie malnutritionmild Hyperkalemia Hypomagnesemia Trend BMP --TF, Glucerna 1.5, goal of 50, nutrition consult. --Protonix 40 mg IV q12 Heme/ID: Left foot nonhealing ulceration Septic shock 01/02 sputum: NGTD --01/02 blood: NGTD --01/02 urine: NGTD. --01/02 heel wound culture enterococcus sensitive to ampicillin --F/u cultures from 01/04 Continue Zosyn, and vancomycin. Azithromycin and micafungin DCd by ID 01/05/17 ID: Dr. Ospina following Daily CBC procalcitonin elevated at 8. Likely bacterial infection. Endocrine: Diabetes Hyperglycemia of critical illness -- SSI, medium scale, every 6 Prophylaxis: GI Prophylaxis Protonix DVT Prophylaxis --SCDs Subcutaneous heparin Lines: 01/02 left radial arterial line-DC today 01/02 left IJ triple-lumen catheter Chamorro Dispo: remain in the ICU. He remains critically ill. This patient remains critically ill with one or more organ systems which are or may become a threat to life. I have spent in excess of 40 minutes discontinuously in the care and management of this patient. This time is exclusive of procedures, and includes, but is not limited to, evaluation of the patient, review of the medical record, discussions with family, consultants, nursing staff, or respiratory therapy, and documentation in the medical record. Meliza Whittington MD Jan 06, 2017 13:03
[2017-01-06] MEDS: LORazepam 2 MG/ML VIAL IV PRN ×2 (13:53→19:33)
[2017-01-06] MEDS: DEXMEDETOMIDINE INJ 1,000 MCG in SODIUM CHLOR 0.9% 250 ML INJ 240 ML IV SCH ×2 (13:54→21:00)
[2017-01-06] MEDS: BUMETANIDE INJ 1 MG/4 ML VIAL IV PUSH SCH (17:59)
[2017-01-06] MEDS: PANTOPRAZOLE SODIUM 40 MG VIAL IV PUSH SCH (20:48)
[2017-01-07] VITALS (18 sets, daily range): BP systolic 141–160; BP diastolic 80–99; PULSE 78–90; RESP 15–20; TEMP 98.7–100.5; O2SAT 93–98
[2017-01-07] MEDS: PIPERACIL-TAZO 3.375 GM PREMIX 50 ML IV SCH ×3 (00:14→18:10)
[2017-01-07] MEDS: PROPOFOL 1000 MG/100 ML INJ 100 ML IV SCH ×4 (02:56→20:46)
[2017-01-07] MEDS: DEXMEDETOMIDINE INJ 1,000 MCG in SODIUM CHLOR 0.9% 250 ML INJ 240 ML IV SCH (03:52)
[2017-01-07] MEDS: LORazepam 2 MG/ML VIAL IV PRN ×2 (03:56→12:14)
[2017-01-07] MEDS: RESP: ALBUTEROL 2.5 MG/IPRATROPIUM 0.5 MG NEB (SCH) INH ×4 (04:04→19:49)
[2017-01-07 05:14] LABS: HEMATOCRIT 30.1 % (39.0-51.0); MEAN CELL VOLUME 99.2 FL (80.0-100.0); MEAN CORPUSCULAR HEMOGLOBIN 33.3 PG (27.0-34.0); MEAN CORPUSCULAR HGB CONC 33.6 % (32.0-36.0); PLATELET COUNT 405 TH/MM3 (150-450); RED BLOOD COUNT 3.03 MIL/MM3 (4.50-5.90); RED CELL DISTRIBUTION WIDTH 13.9 % (11.6-17.2); REVIEW FLAG FINAL; WHITE BLOOD COUNT 13.4 TH/MM3 (4.0-11.0)
[2017-01-07] MEDS: HEPARIN SODIUM - SQ 10,000 UNITS/ML VIAL SQ SCH ×3 (05:14→21:12)
[2017-01-07] MEDS: fentaNYL DRIP 250 ML IV SCH (05:15)
[2017-01-07] MEDS: INSULIN NovoLIN REGULAR SUPPLEMENTAL SCALE SQ SCH ×3 (05:18→18:00)
[2017-01-07] MEDS: CHLORHEXIDINE GLUCONATE 2 % 1 PACK (2 CLOTHS)(taper/protocol) TOPICAL SCH (05:19)
[2017-01-07 05:30] LABS: BICARBONATE 27.9 MEQ/L (21.0-32.0); POTASSIUM 4.3 MEQ/L (3.5-5.1)
[2017-01-07] MEDS: cloNIDine HCL 0.2 MG TAB PO SCH ×3 (08:04→21:11)
[2017-01-07] MEDS: SENNOSIDES SYRUP 8.8 MG/5 ML CUP PO SCH (08:05)
[2017-01-07] MEDS: DOCUSATE SODIUM 100 MG/10 ML UDC PO SCH ×2 (08:05→21:12)
[2017-01-07] MEDS: ASPIRIN EC 81 MG TABEC PO SCH (08:05)
[2017-01-07] MEDS: THIAMINE HCL 100 MG TAB PO SCH (08:05)
[2017-01-07] MEDS: TAMSULOSIN HCL 0.4 MG CAP PO SCH (08:05)
[2017-01-07] MEDS: MULTIVITAMIN TAB PO SCH (08:05)
[2017-01-07] MEDS: CHLORHEXIDINE 0.12% (ORAL KIT) 15 ML CUP MT SCH ×2 (08:05→21:12)
[2017-01-07] MEDS: SODIUM CHLORIDE 0.9% FLUSH 10 ML FLUSH IV FLUSH SCH ×2 (08:06→21:00)
[2017-01-07] MEDS: BUMETANIDE INJ 1 MG/4 ML VIAL IV PUSH SCH ×2 (08:06→18:11)
[2017-01-07] MEDS: COLLAGENASE OINT 30 GM TUBE TOPICAL SCH (08:10)
--- NOTE | 2017-01-07 08:12 | HHI.CCPN ---
Subjective Remarks/Hospital Course Hospital Course: This is a 56-year-old male who originally came into the emergency department with his left foot wound. He was admitted for IV antibiotics and cellulitis, possible osteomyelitis of the foot. He was seen by Dr. Ospina with infectious disease who felt that this was likely chronic osteo and not acute. Overnight last night he became acutely delirious, and has a very strong alcohol history, and was thought most likely to be an alcohol withdrawal. He was given Ativan. This morning, he was much more somnolent. This afternoon a rapid response was called because the patient was unresponsive. When I arrived, the patient had a oxygen saturation of 30% with a good plethysmograph waveform. He was emergently transferred to the ICU and intubated. He had a chest x-ray showing bilateral pulmonary protrudes in all lobes, more suggestive of ARDS. The patient was tachycardic, febrile, very septic appearing. He is toxic. Unfortunately, the patient is unresponsive and cannot provide any additional history. Subjective: 01/03: remains intubated, sedated. persistent bilateral infiltrates. likely ARDS. remains on vasopressors. 01/04: Continued to spike fever 101.3 Tmax. Chest x-ray shows continued bilateral infiltrates/ARDS. Remains on Levophed at 4 mics per minute. Currently on Zosyn and micafungin, vancomycin added for additional gram- positive coverage 01/05: Continues to be hypoxemic currently on FiO2 65%. Chest x-ray shows worsening bilateral pulmonary edema. Fever trending down currently on vancomycin Zosyn and micafungin. Azithromycin added for atypical coverage. I will also increase PEEP to 12, stop IV fluids and give 2 mg IV Bumex 01/06: FiO2 down to 45%. PEEP remains at 12. 2.8 L urine output creatinine slightly improved to 1.8. Received 2 mg Bumex yesterday, nephrology has started scheduled Bumex 1 mg every 12 today. Chest x-ray shows persistent ARDS/ pulmonary edema 01/07: net euvolemic overnight. clinically appears volume overloaded still. failed CPAP for tachypnea yesterday. afebrile. oxygenation stable. Objective Vital Signs Date Time Temp Pulse Resp B/P Pulse Ox O2 Delivery O2 Flow Rate FiO2 01/07/17 06:00 90 01/07/17 04:06 96 45 01/07/17 04:00 100.1 15 151/86 160/81 01/03/17 07:00 Mechanical Ventilator Intake and Output 01/06/17 01/06/17 01/07/17 08:00 16:00 00:00 Intake Total 1031 ml 934 ml 1160 ml Output Total 465.0 ml 1930.0 ml 1480.0 ml Balance 566.0 ml -996.0 ml -320.0 ml Result Diagram: 01/07/17 0455 01/07/17 0455 Other Results Microbiology Date/Time Procedure Status Source Growth 01/04/17 13:40 Urine Culture - Final Complete Urine Catheterized Urine NO GROWTH IN 48 HOURS. 01/04/17 17:00 Gram Stain - Final Complete Sputum Endotracheal 01/04/17 17:00 Sputum Culture - Final Complete Sputum Endotracheal LIGHT GROWTH NORMAL RESPIRATORY [facility] Imaging Last Impressions Chest X-Ray 01/03/17 0600 Signed Impressions: Service Date/Time: December 04:02 - CONCLUSION: Unchanged bilateral pulmonary infiltrates. Issa Wills Jr., MD Chest CT 01/02/17 1645 Signed Impressions: Service Date/Time: Monday, January 02, 2017 22:10 - CONCLUSION: 1. Acute development of bilateral airspace disease as above with some peripheral sparing , especially at the bases. Findings nonspecific. Patient may be developing ARDS/diffuse alveolar damage. Other considerations include infection and severe hypersensitivity type reaction. 2. Endotracheal tube, nasogastric tube and left central line in satisfactory position. Christopher Lagos MD Head CT 01/02/17 0000 Signed Impressions: Service Date/Time: Monday, January 02, 2017 22:08 - CONCLUSION: Normal examination for a patient of this age. No significant change has occurred. Christopher Lagos MD Lower Extremity Ultrasound 01/01/17 0000 Signed Impressions: Service Date/Time: Sunday, January 01, 2017 13:26 - CONCLUSION: Normal examination. Pk Ricks MD Lower Extremity MRI 01/01/17 0000 Signed Impressions: Service Date/Time: Sunday, January 01, 2017 20:03 - CONCLUSION: Subcutaneous soft tissue edema distal leg. No evidence of osteomyelitis of the tibia or fibula. Issa Christiansen MD Foot X-Ray 01/01/17 0000 Signed Impressions: Service Date/Time: Sunday, January 01, 2017 04:49 - CONCLUSION: No acute abnormality. Prior left toe amputation. Issa Wills Jr., MD Foot MRI 01/01/17 0000 Signed Impressions: Service Date/Time: Sunday, January 01, 2017 20:03 - CONCLUSION: 1. Prominent subcutaneous soft tissue edema about the foot and ankle. 2. Abnormal signal in the distal metatarsal head of the 4th digit, characterized by T1 and T2 prolongation. Differential considerations include healing fracture and osteomyelitis. 3. Probable Aburto's neuroma in the interspace between the distal 2nd and 3rd metatarsal bones. Issa Christiansen MD Abdomen/Pelvis CT [id number]/31/[id number] Signed Impressions: Service Date/Time: Saturday, December 31, 2016 22:46 - CONCLUSION: 1. No acute abnormality to explain the patient's pain. 2. Colonic diverticulosis. No acute inflammation. 3. Suspected small calcified gallstone. The gallbladder is nondilated. 4. 4.2 cm left adrenal gland adenoma. Issa Wills Jr., MD Abdomen X-Ray 12/31/16 0000 Signed Impressions: Service Date/Time: Saturday, December 31, 2016 19:25 - CONCLUSION: Unremarkable study except for stool. Lela Stephens MD Objective Remarks GENERAL: Middle-aged male, lying in bed, intubated, sedated. critically ill. HEENT: Pupils equal, round, reactive, conjugate. Normocephalic. Atraumatic. Mucous membranes are moist NECK: Obese neck. Unable to assess JVD. 8.[address] CHEST: Decreased air entry bilaterally. Coarse rales throughout all lung aguirre. PRVC/15/500/12/45%. CARDIOVASCULAR: Normal rate, regular rhythm. No appreciable murmurs. ABDOMEN: Obese, soft, nontender, nondistended. No guarding. MUSCULOSKELETAL: 1+ peripheral edema. Distal pulses 2+. There is a small area on his left heel with a nonhealing ulcer. NEUROLOGICAL: RASS -2. Does not follow commands. Purposeful. withdraws x 4 A/P Assessment and Plan Assessment: This is a 56-year-old male with diabetes, left foot nonhealing wound , alcohol dependence, who presents now with acute hypoxic respiratory failure. At this point likely ARDS. continue broad spectrum ABX for total likely course of 7 days. For now remains very critically ill with likely ARDS, and renal failure Plan by systems: Neurologic: Metabolic encephalopathy Alcohol withdrawal Agitated delirium Propofol, fentanyl for goal RASS -2. PRN Ativan for breakthrough agitation --continue Precedex to facilitate ventilator weaning 01/06 --start clonidine 0.2mg po q8hr --start seroquel 50mg po q8hr --daily sedation vacation. IV thiamine, multivitamin Frequent neuro checks ammonia 20 on 01/02. Respiratory: Acute hypoxic respiratory failure ARDS Aspiration pneumonitis Vent bundle, Head of bed at 30 Wean FiO2 for goal SPO2 greater than 90% Low tidal volume ventilation targeting 6 kg ideal body weight PEEP of 12 did not do well with 8 peep yesterday. will slowly consider weaning to 10 this afternoon. Clinically not ready for extubation Cardiovascular: Sinus tachycardia Septic shock-resolved 2d echo-pending at this time Off all pressors. Hypertensive ---Bumex 1 mg IV, increase to q8hr -- start clonidine 0.2mg q8hr. Renal: Acute kidney injury Likely prerenal/ATN secondary to sepsis. --Strict I/Os, [place]am[place] Every hour urine outputs --Creat continues to improve --Bumex as above FEN/GI: Acute protein calorie malnutritionmild Hyperkalemia Hypomagnesemia Metabolic Alkalosis Trend BMP --TF, Glucerna 1.5, goal of 50, nutrition consult. --Protonix 40 mg IV q12 -- diamox 500mg iv q8hr x 3 doses Heme/ID: Left foot nonhealing ulceration Septic shock- resolved. 01/02 sputum: NGTD --01/02 blood: NGTD --01/02 urine: NGTD. --01/02 heel wound culture enterococcus sensitive to ampicillin --F/u cultures from 01/04 Continue Zosyn, and vancomycin. Azithromycin and micafungin DCd by ID 01/05/17 ID: Dr. Ospina following Daily CBC procalcitonin elevated at 8. Likely bacterial infection. Endocrine: Diabetes Hyperglycemia of critical illness -- SSI, medium scale, every 6 Prophylaxis: GI Prophylaxis Protonix DVT Prophylaxis --SCDs Subcutaneous heparin Lines: 01/02 left IJ triple-lumen catheter Chamorro Dispo: remain in the ICU. He remains critically ill. This patient remains critically ill with one or more organ systems which are or may become a threat to life. I have spent in excess of 32 minutes discontinuously in the care and management of this patient. This time is exclusive of procedures, and includes, but is not limited to, evaluation of the patient, review of the medical record, discussions with family, consultants, nursing staff, or respiratory therapy, and documentation in the medical record. Al Mendieta MD Jan 07, 2017 08:12
[2017-01-07] MEDS: QUEtiapine FUMARATE 100 MG TAB PO SCH ×3 (08:20→21:11)
[2017-01-07] MEDS ORDERED: VANCOMYCIN INJ 1,500 MG in SODIUM CHLORID 0.9% 500 ML INJ 500 ML IV ONE (11:00)
--- NOTE | 2017-01-07 13:04 | HHI.NPPN ---
Subjective History of Present Illness 56 year old with ARF sepsis left heel ulcer Additional Remarks Patient remains intubated Review of Systems General Constitutional: Fatigue Objective Data Data 01/06/17 01/07/17 19:00 07:00 Intake Total 934 ml 2945 ml Output Total 1945.0 ml 2230.0 ml Balance -1011.0 ml 715.0 ml Intake Oral 0 ml IV Total 475 ml 1711 ml Tube Feeding 399 ml 1084 ml Tube Irrigant 60 ml 90 ml Other 60 ml Output Urine Total 1900 ml 2200 ml Tube Feeding Residual Discard 45.0 ml 30.0 ml # Bowel Movements 2 0 Vital Signs Date Time Temp Pulse Resp B/P Pulse Ox O2 Delivery O2 Flow Rate FiO2 01/07/17 12:10 96 45 01/07/17 10:00 84 01/07/17 08:25 95 45 01/07/17 08:00 45 01/07/17 08:00 98.9 84 18 153/81 97 Arterial Line 01/07/17 08:00 78 01/07/17 06:00 90 01/07/17 04:06 96 45 01/07/17 04:00 100.1 81 15 151/86 96 160/81 01/07/17 04:00 81 01/07/17 04:00 45 01/07/17 02:00 79 01/07/17 01:15 96 45 01/07/17 00:00 100.5 83 15 153/87 94 160/80 01/07/17 00:00 45 01/07/17 00:00 83 01/06/17 22:00 81 01/06/17 20:41 95 45 01/06/17 20:00 100.0 95 19 148/89 94 168/87 01/06/17 20:00 82 01/06/17 20:00 45 01/06/17 18:00 82 01/06/17 16:48 96 45 01/06/17 16:00 86 01/06/17 16:00 99.2 86 15 144/84 95 158/83 01/06/17 16:00 50 01/06/17 14:00 85 01/06/17 13:44 90 45 -: 01/07/17 0455 01/07/17 0455 Physical Exam General Appearance: Well Developed Neck Neck Exam: Neck Supple Pulmonary Resp Exam: Clear Bilaterally Cardiology CV Exam: Regular, Normal Sinus Rhythm Gastrointestinal/Abdomen GI Exam: Soft, Non-Tender Assessment/Plan Problem List: (1) Acute renal failure Plan: BIMAL with ATN Creatinine continues to improve, with increasing UOP Good response to bumex 2mg IV q 8 cr 1.6 UOP 4.1 L On vancomycin and zosyn per ID Caution with vancomycin - continue to closely monitor levels (2) Sepsis Plan: Patient is on vancomycin, Zosyn - left heel ulcer showing a growth of group D enterococcus Continue to follow with ID (3) DM (diabetes mellitus) Plan: Follow blood glucose (4) Rhabdomyolysis Plan: resolved (5) Bladder outlet obstruction Plan: Chamorro catheter is in place (6) Metabolic acidosis Plan: resolved Problem Qualifiers (1) Acute renal failure: Qualified Code: N17.0 - Acute renal failure with tubular necrosis (2) Sepsis: Qualified Code: A41.9 - Sepsis, due to unspecified organism (3) Rhabdomyolysis: Qualified Code: M62.82 - Non-traumatic rhabdomyolysis Nikita Guevara MD Jan 07, 2017 13:04
--- NOTE | 2017-01-07 16:04 | PD.POD ---
Subjective Podiatric Problems Pt non responsive on vent, nurse at bedside Past Med/Surg/Social History Social History Smoking Status: Current Every Day Smoker Objective Vital Signs Vital Signs Date Time Temp Pulse Resp B/P Pulse Ox O2 Delivery O2 Flow Rate FiO2 01/07/17 15:23 95 45 01/07/17 14:00 82 01/07/17 12:10 96 45 01/07/17 12:00 98.7 86 20 155/80 98 01/07/17 12:00 45 01/07/17 12:00 86 01/07/17 10:00 84 01/07/17 08:25 95 45 01/07/17 08:00 45 01/07/17 08:00 98.9 84 18 153/81 97 Arterial Line 01/07/17 08:00 78 01/07/17 06:00 90 01/07/17 04:06 96 45 01/07/17 04:00 100.1 81 15 151/86 96 160/81 01/07/17 04:00 81 01/07/17 04:00 45 01/07/17 02:00 79 01/07/17 01:15 96 45 01/07/17 00:00 100.5 83 15 153/87 94 160/80 01/07/17 00:00 45 01/07/17 00:00 83 01/06/17 22:00 81 01/06/17 20:41 95 45 01/06/17 20:00 100.0 95 19 148/89 94 168/87 01/06/17 20:00 82 01/06/17 20:00 45 01/06/17 18:00 82 01/06/17 16:48 96 45 Coded Allergies: Toradol (Verified Allergy, Intermediate, Headache, 12/31/16) Physical Exam Remarks Left heel wound 3 cm x1 cm purpura, psot debridement healthy bleeding, no sign of infection Assessment & Plan A/P Post debridement to good bleeding with santyl and padding with air boot Wound is stable, once daily santyl dressing per nursing MAy do serial debridement later in the week to promote granulation Jono Lynne DPM Jan 07, 2017 16:04
[2017-01-07] MEDS: PANTOPRAZOLE SODIUM 40 MG VIAL IV PUSH SCH (21:11)
--- NOTE | 2017-01-07 22:08 | HHI.IDPN ---
Subjective Subjective Remarks Delayed entry - pt was seen earlier today around 1830 Still on high PEEP, FiO2 35% waening not started yet afebrile off pressors Follows Antibiotics zosyn, vanco, micafungin Lines Line sites ok. Past Medical History BM, ETOHism tobaccoism Allergies: Coded Allergies: Toradol (Verified Allergy, Intermediate, Headache, 12/31/16) Objective . Vital Signs Date Time Temp Pulse Resp B/P Pulse Ox O2 Delivery O2 Flow Rate FiO2 01/07/17 22:03 94 45 01/07/17 20:00 95 45 01/07/17 18:47 82 01/07/17 16:00 45 01/07/17 16:00 98.7 86 20 155/80 98 01/07/17 16:00 87 01/07/17 15:23 95 45 01/07/17 14:00 82 01/07/17 12:10 96 45 01/07/17 12:00 98.7 86 20 155/80 98 01/07/17 12:00 45 01/07/17 12:00 86 01/07/17 10:00 84 01/07/17 08:25 95 45 01/07/17 08:00 45 01/07/17 08:00 98.9 84 18 153/81 97 Arterial Line 01/07/17 08:00 78 01/07/17 06:00 90 01/07/17 04:06 96 45 01/07/17 04:00 100.1 81 15 151/86 96 160/81 01/07/17 04:00 81 01/07/17 04:00 45 01/07/17 02:00 79 01/07/17 01:15 96 45 01/07/17 00:00 100.5 83 15 153/87 94 160/80 01/07/17 00:00 45 01/07/17 00:00 83 01/06/17 01/06/17 01/07/17 15:00 23:00 07:00 Intake Total 934 ml 1160 ml 1785 ml Output Total 1930.0 ml 1465.0 ml 780.0 ml Balance -996.0 ml -305.0 ml 1005.0 ml Intake Oral 0 ml 0 ml IV Total 475 ml 690 ml 1021 ml Tube Feeding 399 ml 380 ml 704 ml Tube Irrigant 60 ml 90 ml Other 60 ml Output Urine Total 1900 ml 1450 ml 750 ml Tube Feeding Residual Discard 30.0 ml 15.0 ml 30.0 ml # Bowel Movements 2 0 0 . Laboratory Tests Test 01/06/17 01/07/17 03:13 04:55 White Blood Count 11.9 TH/MM3 13.4 TH/MM3 Red Blood Count 2.62 MIL/MM3 3.03 MIL/MM3 Hemoglobin 9.1 GM/DL 10.1 GM/DL Hematocrit 25.9 % 30.1 % Mean Corpuscular Volume 99.1 FL 99.2 FL Mean Corpuscular Hemoglobin 34.7 PG 33.3 PG Mean Corpuscular Hemoglobin 35.0 % 33.6 % Concent Red Cell Distribution Width 13.9 % 13.9 % Platelet Count 295 TH/MM3 405 TH/MM3 Mean Platelet Volume 9.7 FL 9.1 FL Neutrophils (%) (Auto) 75.0 % Lymphocytes (%) (Auto) 10.2 % Monocytes (%) (Auto) 6.1 % Eosinophils (%) (Auto) 8.1 % Basophils (%) (Auto) 0.6 % Neutrophils # (Auto) 8.9 TH/MM3 Lymphocytes # (Auto) 1.2 TH/MM3 Monocytes # (Auto) 0.7 TH/MM3 Eosinophils # (Auto) 1.0 TH/MM3 Basophils # (Auto) 0.1 TH/MM3 CBC Comment AUTO DIFF Differential Total Cells 100 Counted Neutrophils % (Manual) 71 % Band Neutrophils % 12 % Lymphocytes % 8 % Monocytes % 6 % Eosinophils % 2 % Basophils % 1 % Neutrophils # (Manual) 9.9 TH/MM3 Differential Comment FINAL DIFF MANUAL Platelet Estimate NORMAL Platelet Morphology Comment NORMAL Laboratory Tests Test 01/06/17 01/07/17 03:13 04:55 Sodium Level 141 MEQ/L 142 MEQ/L Potassium Level 4.4 MEQ/L 4.3 MEQ/L Chloride Level 108 MEQ/L 106 MEQ/L Carbon Dioxide Level 26.6 MEQ/L 27.9 MEQ/L Anion Gap 6 MEQ/L 8 MEQ/L Blood Urea Nitrogen 25 MG/DL 23 MG/DL Creatinine 1.81 MG/DL 1.61 MG/DL Estimat Glomerular Filtration 39 ML/MIN 45 ML/MIN Rate Random Glucose 162 MG/DL 217 MG/DL Calcium Level 7.7 MG/DL 8.1 MG/DL Magnesium Level 1.9 MG/DL Total Bilirubin 0.4 MG/DL Aspartate Amino Transf 33 U/L (AST/SGOT) Alanine Aminotransferase 31 U/L (ALT/SGPT) Alkaline Phosphatase 112 U/L Total Protein 6.5 GM/DL Albumin 2.1 GM/DL Imaging Last Impressions Chest X-Ray 01/06/17 0600 Signed Impressions: Service Date/Time: Friday, January 06, 2017 04:53 - CONCLUSION: Diffuse consolidations likely representing pulmonary edema. Pk Rivera MD Chest CT 01/02/17 1645 Signed Impressions: Service Date/Time: Monday, January 02, 2017 22:10 - CONCLUSION: 1. Acute development of bilateral airspace disease as above with some peripheral sparing , especially at the bases. Findings nonspecific. Patient may be developing ARDS/diffuse alveolar damage. Other considerations include infection and severe hypersensitivity type reaction. 2. Endotracheal tube, nasogastric tube and left central line in satisfactory position. Christopher Lagos MD Head CT 01/02/17 0000 Signed Impressions: Service Date/Time: Monday, January 02, 2017 22:08 - CONCLUSION: Normal examination for a patient of this age. No significant change has occurred. Christopher Lagos MD Lower Extremity Ultrasound 01/01/17 0000 Signed Impressions: Service Date/Time: Sunday, January 01, 2017 13:26 - CONCLUSION: Normal examination. Pk Ricks MD Lower Extremity MRI 01/01/17 0000 Signed Impressions: Service Date/Time: Sunday, January 01, 2017 20:03 - CONCLUSION: Subcutaneous soft tissue edema distal leg. No evidence of osteomyelitis of the tibia or fibula. Issa Christiansen MD Foot X-Ray 01/01/17 0000 Signed Impressions: Service Date/Time: Sunday, January 01, 2017 04:49 - CONCLUSION: No acute abnormality. Prior left toe amputation. Issa Wills Jr., MD Foot MRI 01/01/17 0000 Signed Impressions: Service Date/Time: Sunday, January 01, 2017 20:03 - CONCLUSION: 1. Prominent subcutaneous soft tissue edema about the foot and ankle. 2. Abnormal signal in the distal metatarsal head of the 4th digit, characterized by T1 and T2 prolongation. Differential considerations include healing fracture and osteomyelitis. 3. Probable Aburto's neuroma in the interspace between the distal 2nd and 3rd metatarsal bones. Issa Christiansen MD Abdomen/Pelvis CT 12/31/16 1939 Signed Impressions: Service Date/Time: Saturday, December 31, 2016 22:46 - CONCLUSION: 1. No acute abnormality to explain the patient's pain. 2. Colonic diverticulosis. No acute inflammation. 3. Suspected small calcified gallstone. The gallbladder is nondilated. 4. 4.2 cm left adrenal gland adenoma. Issa Wills Jr., MD Abdomen X-Ray 12/31/16 0000 Signed Impressions: Service Date/Time: Saturday, December 31, 2016 19:25 - CONCLUSION: Unremarkable study except for stool. Lela Stephens MD Physical Exam CONSTITUTIONAL/GENERAL: This is an obese patient, in no apparent distress. sedated int'd on [facility] vent TUBES/LINES/DRAINS: SKIN: No jaundice, rashes, or lesions. Skin temperature appropriate. Not diaphoretic. HEAD: Atraumatic. Normocephalic. EYES: Pupils equal and round and reactive. Extraocular motions intact. No scleral icterus. No injection or drainage. Fundi not examined. ENT: Oral mucosae moist, dentition poor orally int'd NECK: Trachea midline. Supple, nontender. CARDIOVASCULAR: Regular rate and rhythm without murmurs, gallops, or rubs. No JVD. Peripheral pulses symmetric. RESPIRATORY/CHEST: Symmetric, unlabored respirations.Breath sounds equal bilaterally. occ creps GASTROINTESTINAL: Abdomen soft, non-tender, nondistended. Bowel sounds present. GENITOURINARY: Without palpable bladder distension. Chamorro catheter in place with slightly cloudy yellow urine MUSCULOSKELETAL: Extremities without clubbing, cyanosis, or edema. LYMPHATICS: No palpable cervical or supraclavicular adenopathy. NEUROLOGICAL: sedated unresponsive PSYCHIATRIC: unable to assess Assessment & Plan Remarks Septic shock likely secondary to aspiration pneumonia Aspiration PNA likely related to alcoholism Admitted for obstructive uropathy and ARF Acute renal failurelikely post obstructive Rhabdomyolysis Acute urinary retention Left heel chronic diabetic ulcer, no e/o osteo of L heel sp b/s debridement - growing enterococccus from surface clx ? significance - this is likely not the source of pt possible sepsis Hypoxia with new infiltrates ? ARDS ? 2/2 sepsis vs aspiration pneumonitis Recs Continue Zosyn IV dc Vanco IV (target 15-20) DC Azithro IV DC micafungin IV (source aspiration PNA, no IA sepsis or line infection suspected) Follow cultures to adjust antibiotics. Follow clinically. Mi Soto RN, MD Jan 07, 2017 22:08
[2017-01-08] VITALS (15 sets, daily range): BP systolic 124–138; BP diastolic 59–79; PULSE 83–94; RESP 18–26; TEMP 98.9–100.8; O2SAT 94–100
[2017-01-08] MEDS: PROPOFOL 1000 MG/100 ML INJ 100 ML IV SCH ×4 (01:08→17:33)
[2017-01-08] MEDS: BUMETANIDE INJ 1 MG/4 ML VIAL IV PUSH SCH ×3 (01:15→17:26)
[2017-01-08] MEDS: INSULIN NovoLIN REGULAR SUPPLEMENTAL SCALE SQ SCH ×4 (01:16→17:27)
[2017-01-08] MEDS: PIPERACIL-TAZO 3.375 GM PREMIX 50 ML IV SCH ×3 (01:16→17:26)
[2017-01-08] MEDS: RESP: ALBUTEROL 2.5 MG/IPRATROPIUM 0.5 MG NEB (SCH) INH ×4 (03:56→20:16)
[2017-01-08 05:00] LABS: HEMATOCRIT 30.2 % (39.0-51.0); MEAN CORPUSCULAR HEMOGLOBIN 33.9 PG (27.0-34.0); MEAN CORPUSCULAR HGB CONC 33.9 % (32.0-36.0); PLATELET COUNT 504 TH/MM3 (150-450); RED BLOOD COUNT 3.02 MIL/MM3 (4.50-5.90); RED CELL DISTRIBUTION WIDTH 13.5 % (11.6-17.2); REVIEW FLAG FINAL; WHITE BLOOD COUNT 10.6 TH/MM3 (4.0-11.0)
[2017-01-08 05:23] LABS: BICARBONATE 30.1 MEQ/L (21.0-32.0); POTASSIUM 3.7 MEQ/L (3.5-5.1)
[2017-01-08] MEDS: QUEtiapine FUMARATE 100 MG TAB PO SCH ×3 (07:07→22:25)
[2017-01-08] MEDS: cloNIDine HCL 0.2 MG TAB PO SCH (07:07)
[2017-01-08] MEDS: DEXMEDETOMIDINE INJ 1,000 MCG in SODIUM CHLOR 0.9% 250 ML INJ 240 ML IV SCH (07:07)
[2017-01-08] MEDS: HEPARIN SODIUM - SQ 10,000 UNITS/ML VIAL SQ SCH ×3 (07:08→22:24)
[2017-01-08] MEDS: THIAMINE HCL 100 MG TAB PO SCH (09:00)
[2017-01-08] MEDS: TAMSULOSIN HCL 0.4 MG CAP PO SCH (09:44)
[2017-01-08] MEDS: MULTIVITAMIN TAB PO SCH (09:44)
[2017-01-08] MEDS: ASPIRIN EC 81 MG TABEC PO SCH (09:44)
[2017-01-08] MEDS: SENNOSIDES SYRUP 8.8 MG/5 ML CUP PO SCH (09:44)
[2017-01-08] MEDS: fentaNYL DRIP 250 ML IV SCH (09:45)
[2017-01-08] MEDS: COLLAGENASE OINT 30 GM TUBE TOPICAL SCH (09:46)
[2017-01-08] MEDS: CHLORHEXIDINE 0.12% (ORAL KIT) 15 ML CUP MT SCH ×2 (09:50→22:24)
[2017-01-08] MEDS: DOCUSATE SODIUM 100 MG/10 ML UDC PO SCH ×2 (09:50→22:23)
[2017-01-08] MEDS: SODIUM CHLORIDE 0.9% FLUSH 10 ML FLUSH IV FLUSH SCH (09:50)
[2017-01-08] MEDS: LORazepam 2 MG/ML VIAL IV PRN (09:51)
--- NOTE | 2017-01-08 11:56 | HHI.NPPN ---
Subjective History of Present Illness 56 year old with ARF sepsis left heel ulcer Additional Remarks Patient remains intubated Review of Systems General Constitutional: Fatigue Objective Data Data 01/07/17 01/08/17 19:00 07:00 Intake Total 1538 ml 2668 ml Output Total 1800.0 ml 2222 ml Balance -262.0 ml 446 ml Intake Oral 0 ml IV Total 918 ml 1351 ml Tube Feeding 560 ml 555 ml Packed Cells 722 ml Tube Irrigant 40 ml Other 60 ml Output Urine Total 1800 ml 2222 ml Stool Total 0 ml Tube Feeding Residual Discard 0 ml # Bowel Movements 0 Vital Signs Date Time Temp Pulse Resp B/P Pulse Ox O2 Delivery O2 Flow Rate FiO2 01/08/17 11:23 97 45 01/08/17 08:08 98 45 01/08/17 06:00 87 01/08/17 04:15 98 45 01/08/17 04:00 100.3 86 18 124/74 95 01/08/17 04:00 45 01/08/17 04:00 88 01/08/17 02:00 83 01/08/17 01:10 95 45 01/08/17 00:00 45 01/08/17 00:00 100.8 94 18 133/79 94 01/08/17 00:00 83 01/08/17 00:00 86 01/07/17 22:03 94 45 01/07/17 22:00 83 01/07/17 20:00 95 45 01/07/17 20:00 100.1 82 18 141/99 93 01/07/17 20:00 45 01/07/17 20:00 83 01/07/17 18:47 82 01/07/17 16:00 45 01/07/17 16:00 98.7 86 20 155/80 98 01/07/17 16:00 87 01/07/17 15:23 95 45 01/07/17 14:00 82 01/07/17 12:10 96 45 01/07/17 12:00 98.7 86 20 155/80 98 01/07/17 12:00 45 01/07/17 12:00 86 -: 01/08/17 0330 01/08/17 0330 Physical Exam General Appearance: Well Developed Neck Neck Exam: Neck Supple Pulmonary Resp Exam: Clear Bilaterally Cardiology CV Exam: Regular, Normal Sinus Rhythm Gastrointestinal/Abdomen GI Exam: Soft, Non-Tender Assessment/Plan Problem List: (1) Acute renal failure Plan: BIMAL with ATN Creatinine continues to improve, with increasing UOP Good response to bumex 2mg IV q 8 cr 1.7 UOP 4.02 L On vancomycin and zosyn per ID Caution with vancomycin - continue to closely monitor levels (2) Sepsis Plan: Patient is on vancomycin, Zosyn - left heel ulcer showing a growth of group D enterococcus Continue to follow with ID (3) DM (diabetes mellitus) Plan: Follow blood glucose (4) Rhabdomyolysis Plan: resolved (5) Bladder outlet obstruction Plan: Chamorro catheter is in place (6) Metabolic acidosis Plan: resolved Problem Qualifiers (1) Acute renal failure: Qualified Code: N17.0 - Acute renal failure with tubular necrosis (2) Sepsis: Qualified Code: A41.9 - Sepsis, due to unspecified organism (3) Rhabdomyolysis: Qualified Code: M62.82 - Non-traumatic rhabdomyolysis Nikita Guevara MD Jan 08, 2017 11:56
--- NOTE | 2017-01-08 12:32 | HHI.CCPN ---
Subjective Remarks/Hospital Course Hospital Course: This is a 56-year-old male who originally came into the emergency department with his left foot wound. He was admitted for IV antibiotics and cellulitis, possible osteomyelitis of the foot. He was seen by Dr. Ospina with infectious disease who felt that this was likely chronic osteo and not acute. Overnight last night he became acutely delirious, and has a very strong alcohol history, and was thought most likely to be an alcohol withdrawal. He was given Ativan. This morning, he was much more somnolent. This afternoon a rapid response was called because the patient was unresponsive. When I arrived, the patient had a oxygen saturation of 30% with a good plethysmograph waveform. He was emergently transferred to the ICU and intubated. He had a chest x-ray showing bilateral pulmonary protrudes in all lobes, more suggestive of ARDS. The patient was tachycardic, febrile, very septic appearing. He is toxic. Unfortunately, the patient is unresponsive and cannot provide any additional history. Subjective: 01/03: remains intubated, sedated. persistent bilateral infiltrates. likely ARDS. remains on vasopressors. 01/04: Continued to spike fever 101.3 Tmax. Chest x-ray shows continued bilateral infiltrates/ARDS. Remains on Levophed at 4 mics per minute. Currently on Zosyn and micafungin, vancomycin added for additional gram- positive coverage 01/05: Continues to be hypoxemic currently on FiO2 65%. Chest x-ray shows worsening bilateral pulmonary edema. Fever trending down currently on vancomycin Zosyn and micafungin. Azithromycin added for atypical coverage. I will also increase PEEP to 12, stop IV fluids and give 2 mg IV Bumex 01/06: FiO2 down to 45%. PEEP remains at 12. 2.8 L urine output creatinine slightly improved to 1.8. Received 2 mg Bumex yesterday, nephrology has started scheduled Bumex 1 mg every 12 today. Chest x-ray shows persistent ARDS/ pulmonary edema 01/07: net euvolemic overnight. clinically appears volume overloaded still. failed CPAP for tachypnea yesterday. afebrile. oxygenation stable. 01/08: net euvolemic overnight again. still volume overloaded. Cr slightly elevated. metabolic alkalosis persists. Objective Vital Signs Date Time Temp Pulse Resp B/P Pulse Ox O2 Delivery O2 Flow Rate FiO2 01/08/17 11:23 97 45 01/08/17 06:00 87 01/08/17 04:00 100.3 18 124/74 Intake and Output 01/07/17 01/07/17 01/08/17 08:00 16:00 00:00 Intake Total 1785 ml 1538 ml 945 ml Output Total 750.0 ml 1800.0 ml 622 ml Balance 1035.0 ml -262.0 ml 323 ml Result Diagram: 01/08/17 0330 01/08/17 0330 Imaging Last Impressions Chest X-Ray 01/03/17 0600 Signed Impressions: Service Date/Time: December 04:02 - CONCLUSION: Unchanged bilateral pulmonary infiltrates. Issa Wills Jr., MD Chest CT 01/02/17 1645 Signed Impressions: Service Date/Time: Monday, January 02, 2017 22:10 - CONCLUSION: 1. Acute development of bilateral airspace disease as above with some peripheral sparing , especially at the bases. Findings nonspecific. Patient may be developing ARDS/diffuse alveolar damage. Other considerations include infection and severe hypersensitivity type reaction. 2. Endotracheal tube, nasogastric tube and left central line in satisfactory position. Christopher Lagos MD Head CT 01/02/17 Signed Impressions: Service Date/Time: Monday, January 02, 2017 22:08 - CONCLUSION: Normal examination for a patient of this age. No significant change has occurred. Christopher Lagos MD Lower Extremity Ultrasound 01/01/17 Signed Impressions: Service Date/Time: Sunday, January 01, 2017 13:26 - CONCLUSION: Normal examination. Pk Ricks MD Lower Extremity MRI 01/01/17 Signed Impressions: Service Date/Time: Sunday, January 01, 2017 20:03 - CONCLUSION: Subcutaneous soft tissue edema distal leg. No evidence of osteomyelitis of the tibia or fibula. Issa Christiansen MD Foot X-Ray 01/01/17 Signed Impressions: Service Date/Time: Sunday, January 01, 2017 04:49 - CONCLUSION: No acute abnormality. Prior left toe amputation. Issa Wills Jr., MD Foot MRI 01/01/17 Signed Impressions: Service Date/Time: Sunday, January 01, 2017 20:03 - CONCLUSION: 1. Prominent subcutaneous soft tissue edema about the foot and ankle. 2. Abnormal signal in the distal metatarsal head of the 4th digit, characterized by T1 and T2 prolongation. Differential considerations include healing fracture and osteomyelitis. 3. Probable Aburto's neuroma in the interspace between the distal 2nd and 3rd metatarsal bones. Issa Christiansen MD Abdomen/Pelvis CT 12/31/16 1939 Signed Impressions: Service Date/Time: Saturday, December 31, 2016 22:46 - CONCLUSION: 1. No acute abnormality to explain the patient's pain. 2. Colonic diverticulosis. No acute inflammation. 3. Suspected small calcified gallstone. The gallbladder is nondilated. 4. 4.2 cm left adrenal gland adenoma. Issa Wills Jr., MD Abdomen X-Ray 12/31/16 0000 Signed Impressions: Service Date/Time: Saturday, December 31, 2016 19:25 - CONCLUSION: Unremarkable study except for stool. Lela Stephens MD Objective Remarks GENERAL: Middle-aged male, lying in bed, intubated, sedated. critically ill. HEENT: Pupils equal, round, reactive, conjugate. Normocephalic. Atraumatic. Mucous membranes are moist NECK: Obese neck. Unable to assess JVD. 8.[address] CHEST: Decreased air entry bilaterally. Coarse rales throughout all lung aguirre. PRVC/15/500/12/45%. CARDIOVASCULAR: Normal rate, regular rhythm. No appreciable murmurs. ABDOMEN: Obese, soft, nontender, nondistended. No guarding. MUSCULOSKELETAL: 1+ peripheral edema. Distal pulses 2+. There is a small area on his left heel with a nonhealing ulcer. NEUROLOGICAL: RASS -3. Does not follow commands. Purposeful. withdraws x 4 A/P Assessment and Plan Assessment: This is a 56-year-old male with diabetes, left foot nonhealing wound , alcohol dependence, who presents now with acute hypoxic respiratory failure. At this point likely ARDS. continue broad spectrum ABX for total likely course of 7 days. For now remains very critically ill with likely ARDS, and renal failure, volume overload, hypoxic respiratory failure. he is off pathway. Plan by systems: Neurologic: Metabolic encephalopathy Alcohol withdrawal Agitated delirium Propofol, fentanyl for goal RASS -2. PRN Ativan for breakthrough agitation --continue Precedex to facilitate ventilator weaning 01/06 --increase clonidine 0.3mg po q8hr --continue seroquel 50mg po q8hr --daily sedation vacation. IV thiamine, multivitamin Frequent neuro checks ammonia 20 on 01/02. Respiratory: Acute hypoxic respiratory failure ARDS Aspiration pneumonitis Vent bundle, Head of bed at 30 Wean FiO2 for goal SPO2 greater than 90% Low tidal volume ventilation targeting 6 kg ideal body weight decrease PEEP to 10 today. Clinically not ready for extubation. no sbt today given ventilatory requirements. Cardiovascular: Sinus tachycardia- resolving. Septic shock-resolved Off all pressors. Hypertensive ---Bumex 2 mg IV q8h with albumin 25%. -- clonidine 0.2mg q8hr. Renal: Acute kidney injury Likely prerenal/ATN secondary to sepsis. --Strict I/Os, Chamorro Every hour urine outputs --Creat continues to improve --Bumex as above FEN/GI: Acute protein calorie malnutritionmild Hyperkalemia Hypomagnesemia Metabolic Alkalosis Trend BMP --TF, Glucerna 1.5, goal of 50, nutrition consult. --Protonix 40 mg IV q12 -- diamox 500mg iv q8hr x 3 doses Heme/ID: Left foot nonhealing ulceration Septic shock- resolved. 01/02 sputum: NGTD --01/02 blood: NGTD --01/02 urine: NGTD. --01/02 heel wound culture enterococcus sensitive to ampicillin --F/u cultures from 01/04 Continue Zosyn, and vancomycin. Azithromycin and micafungin DCd by ID 01/05/17 ID: Dr. Ospina following Daily CBC procalcitonin elevated at 8. Likely bacterial infection. Endocrine: Diabetes Hyperglycemia of critical illness -- SSI, medium scale, every 6 Prophylaxis: GI Prophylaxis Protonix DVT Prophylaxis --SCDs Subcutaneous heparin Lines: 01/02 left IJ triple-lumen catheter Chamorro Dispo: remain in the ICU. He remains critically ill. This patient remains critically ill with one or more organ systems which are or may become a threat to life. I have spent in excess of 37 minutes discontinuously in the care and management of this patient. This time is exclusive of procedures, and includes, but is not limited to, evaluation of the patient, review of the medical record, discussions with family, consultants, nursing staff, or respiratory therapy, and documentation in the medical record. Al Mendieta MD Jan 08, 2017 12:32
[2017-01-08] MEDS: cloNIDine HCL 0.3 MG TAB PO SCH ×2 (14:00→22:25)
--- NOTE | 2017-01-08 16:04 | HHI.IDPN ---
Subjective Subjective Remarks PEEP still quite high 10 FiO2 45% afebrile with occ low grade fever not started on CPAP Antibiotics zosyn Lines Line sites ok. Past Medical History BM, ETOHism tobaccoism Allergies: Coded Allergies: Toradol (Verified Allergy, Intermediate, Headache, 12/31/16) Objective . Vital Signs Date Time Temp Pulse Resp B/P Pulse Ox O2 Delivery O2 Flow Rate FiO2 01/08/17 14:00 87 01/08/17 12:00 45 01/08/17 12:00 100.3 86 18 124/74 95 01/08/17 12:00 93 01/08/17 11:23 97 45 01/08/17 08:08 98 45 01/08/17 06:00 87 01/08/17 04:15 98 45 01/08/17 04:00 100.3 86 18 124/74 95 01/08/17 04:00 45 01/08/17 04:00 88 01/08/17 02:00 83 01/08/17 01:10 95 45 01/08/17 00:00 45 01/08/17 00:00 100.8 94 18 133/79 94 01/08/17 00:00 83 01/08/17 00:00 86 01/07/17 22:03 94 45 01/07/17 22:00 83 01/07/17 20:00 95 45 01/07/17 20:00 100.1 82 18 141/99 93 01/07/17 20:00 45 01/07/17 20:00 83 01/07/17 18:47 82 01/07/17 01/07/17 01/08/17 15:00 23:00 07:00 Intake Total 1538 ml 945 ml 1723 ml Output Total 1800 ml 622 ml 1600 ml Balance -262 ml 323 ml 123 ml Intake Oral 0 ml IV Total 918 ml 223 ml 1128 ml Tube Feeding 560 ml 555 ml Packed Cells 722 ml Tube Irrigant 40 ml Other 60 ml Output Urine Total 1800 ml 622 ml 1600 ml Stool Total 0 ml Tube Feeding Residual Discard 0 ml 0 ml # Bowel Movements 0 . Laboratory Tests Test 01/07/17 01/08/17 04:55 03:30 White Blood Count 13.4 TH/MM3 10.6 TH/MM3 Red Blood Count 3.03 MIL/MM3 3.02 MIL/MM3 Hemoglobin 10.1 GM/DL 10.2 GM/DL Hematocrit 30.1 % 30.2 % Mean Corpuscular Volume 99.2 FL 100.0 FL Mean Corpuscular Hemoglobin 33.3 PG 33.9 PG Mean Corpuscular Hemoglobin 33.6 % 33.9 % Concent Red Cell Distribution Width 13.9 % 13.5 % Platelet Count 405 TH/MM3 504 TH/MM3 Mean Platelet Volume 9.1 FL 9.4 FL Laboratory Tests Test 01/07/17 01/08/17 04:55 03:30 Sodium Level 142 MEQ/L 145 MEQ/L Potassium Level 4.3 MEQ/L 3.7 MEQ/L Chloride Level 106 MEQ/L 106 MEQ/L Carbon Dioxide Level 27.9 MEQ/L 30.1 MEQ/L Anion Gap 8 MEQ/L 9 MEQ/L Blood Urea Nitrogen 23 MG/DL 27 MG/DL Creatinine 1.61 MG/DL 1.71 MG/DL Estimat Glomerular Filtration 45 ML/MIN 42 ML/MIN Rate Random Glucose 217 MG/DL 269 MG/DL Calcium Level 8.1 MG/DL 8.6 MG/DL Imaging Last Impressions Chest X-Ray 01/06/17 0600 Signed Impressions: Service Date/Time: Friday, January 06, 2017 04:53 - CONCLUSION: Diffuse consolidations likely representing pulmonary edema. Pk Rivera MD Chest CT 01/02/17 1645 Signed Impressions: Service Date/Time: Monday, January 02, 2017 22:10 - CONCLUSION: 1. Acute development of bilateral airspace disease as above with some peripheral sparing , especially at the bases. Findings nonspecific. Patient may be developing ARDS/diffuse alveolar damage. Other considerations include infection and severe hypersensitivity type reaction. 2. Endotracheal tube, nasogastric tube and left central line in satisfactory position. Christopher Lagos MD Head CT 01/02/17 0000 Signed Impressions: Service Date/Time: Monday, January 02, 2017 22:08 - CONCLUSION: Normal examination for a patient of this age. No significant change has occurred. Christopher Lagos MD Lower Extremity Ultrasound 01/01/17 0000 Signed Impressions: Service Date/Time: Sunday, January 01, 2017 13:26 - CONCLUSION: Normal examination. Pk Ricks MD Lower Extremity MRI 01/01/17 0000 Signed Impressions: Service Date/Time: Sunday, January 01, 2017 20:03 - CONCLUSION: Subcutaneous soft tissue edema distal leg. No evidence of osteomyelitis of the tibia or fibula. Issa Christiansen MD Foot X-Ray 01/01/17 0000 Signed Impressions: Service Date/Time: Sunday, January 01, 2017 04:49 - CONCLUSION: No acute abnormality. Prior left toe amputation. Issa Wills Jr., MD Foot MRI 01/01/17 0000 Signed Impressions: Service Date/Time: Sunday, January 01, 2017 20:03 - CONCLUSION: 1. Prominent subcutaneous soft tissue edema about the foot and ankle. 2. Abnormal signal in the distal metatarsal head of the 4th digit, characterized by T1 and T2 prolongation. Differential considerations include healing fracture and osteomyelitis. 3. Probable Aburto's neuroma in the interspace between the distal 2nd and 3rd metatarsal bones. Issa Christiansen MD Abdomen/Pelvis CT 12/31/[id number] Signed Impressions: Service Date/Time: Saturday, December 31, 2016 22:46 - CONCLUSION: 1. No acute abnormality to explain the patient's pain. 2. Colonic diverticulosis. No acute inflammation. 3. Suspected small calcified gallstone. The gallbladder is nondilated. 4. 4.2 cm left adrenal gland adenoma. Issa Wills Jr., MD Abdomen X-Ray 12/31/16 Signed Impressions: Service Date/Time: Saturday, December 31, 2016 19:25 - CONCLUSION: Unremarkable study except for stool. Lela Stephens MD Physical Exam CONSTITUTIONAL/GENERAL: This is an obese patient, in no apparent distress. sedated int'd on [facility] vent TUBES/LINES/DRAINS: SKIN: No jaundice, rashes, or lesions. HEAD: Atraumatic. Normocephalic. EYES: Pupils equal and round and reactive. Extraocular motions intact. No scleral icterus. No injection or drainage. Fundi not examined. ENT: Oral mucosae moist, dentition poor orally int'd NECK: Trachea midline. Supple, nontender. CARDIOVASCULAR: Regular rate and rhythm without murmurs, gallops, or rubs. No JVD. Peripheral pulses symmetric. RESPIRATORY/CHEST: Symmetric, unlabored respirations. Breath sounds equal bilaterally. occ creps GASTROINTESTINAL: Abdomen soft, non-tender, nondistended. Bowel sounds present. GENITOURINARY: Without palpable bladder distension. Chamorro catheter in place with slightly cloudy yellow urine MUSCULOSKELETAL: Extremities without clubbing, cyanosis, or edema. NEUROLOGICAL: sedated unresponsive PSYCHIATRIC: unable to assess Assessment & Plan Remarks Septic shock likely secondary to aspiration pneumonia Aspiration PNA likely related to alcoholism Admitted for obstructive uropathy and ARF Acute renal failurelikely post obstructive Rhabdomyolysis Acute urinary retention Left heel chronic diabetic ulcer, no e/o osteo of L heel sp b/s debridement - growing enterococccus along with skin ricky from surface clx ; doubt clin significance - this is likely not the source of pt possible sepsis Hypoxia with new infiltrates ? ARDS ? 2/2 sepsis vs aspiration pneumonitis Recs will dc Zosyn IV tomorrow (7 days) Follow clinically. Mi Soto RN, MD Jan 08, 2017 16:04
[2017-01-08] MEDS: ALBUMIN HUMAN 25% 25 GM/100 ML BAGP IV SCH (17:27)
[2017-01-08] MEDS: PANTOPRAZOLE SODIUM 40 MG VIAL IV PUSH SCH (22:24)
[2017-01-09] VITALS (19 sets, daily range): BP systolic 131–145; BP diastolic 73–85; PULSE 79–95; RESP 20–26; TEMP 87–100; O2SAT 94–97
[2017-01-09] MEDS: PIPERACIL-TAZO 3.375 GM PREMIX 50 ML IV SCH ×3 (00:58→17:30)
[2017-01-09] MEDS: ALBUMIN HUMAN 25% 25 GM/100 ML BAGP IV SCH ×2 (00:58→09:11)
[2017-01-09] MEDS: BUMETANIDE INJ 1 MG/4 ML VIAL IV PUSH SCH ×3 (00:58→17:30)
[2017-01-09] MEDS: PROPOFOL 1000 MG/100 ML INJ 100 ML IV SCH ×3 (01:20→14:16)
[2017-01-09] MEDS: DEXMEDETOMIDINE INJ 1,000 MCG in SODIUM CHLOR 0.9% 250 ML INJ 240 ML IV SCH ×4 (01:20→18:41)
[2017-01-09] MEDS: RESP: ALBUTEROL 2.5 MG/IPRATROPIUM 0.5 MG NEB (SCH) INH ×4 (03:35→20:39)
[2017-01-09] MEDS: QUEtiapine FUMARATE 100 MG TAB PO SCH ×3 (05:14→21:45)
[2017-01-09] MEDS: cloNIDine HCL 0.3 MG TAB PO SCH ×3 (05:14→21:44)
[2017-01-09] MEDS: HEPARIN SODIUM - SQ 10,000 UNITS/ML VIAL SQ SCH ×3 (05:14→21:56)
[2017-01-09] MEDS: INSULIN NovoLIN REGULAR SUPPLEMENTAL SCALE SQ SCH ×4 (05:42→17:31)
[2017-01-09] MEDS: TAMSULOSIN HCL 0.4 MG CAP PO SCH (09:00)
[2017-01-09] MEDS: COLLAGENASE OINT 30 GM TUBE TOPICAL SCH (09:00)
[2017-01-09] MEDS: DOCUSATE SODIUM 100 MG/10 ML UDC PO SCH ×2 (09:00→21:44)
[2017-01-09] MEDS: SENNOSIDES SYRUP 8.8 MG/5 ML CUP PO SCH (09:00)
[2017-01-09] MEDS: ASPIRIN EC 81 MG TABEC PO SCH (09:12)
[2017-01-09] MEDS: CHLORHEXIDINE 0.12% (ORAL KIT) 15 ML CUP MT SCH ×2 (09:12→21:44)
[2017-01-09] MEDS: THIAMINE HCL 100 MG TAB PO SCH (09:12)
[2017-01-09] MEDS: MULTIVITAMIN TAB PO SCH (09:12)
[2017-01-09 10:13] LABS: BICARBONATE 30.1 MEQ/L (21.0-32.0); POTASSIUM 3.3 MEQ/L (3.5-5.1)
[2017-01-09 10:27] LABS: HEMATOCRIT 31.3 % (39.0-51.0); MEAN CELL VOLUME 100.1 FL (80.0-100.0); MEAN CORPUSCULAR HEMOGLOBIN 34.2 PG (27.0-34.0); MEAN CORPUSCULAR HGB CONC 34.2 % (32.0-36.0); PLATELET COUNT 610 TH/MM3 (150-450); RED BLOOD COUNT 3.12 MIL/MM3 (4.50-5.90); RED CELL DISTRIBUTION WIDTH 13.6 % (11.6-17.2); REVIEW FLAG FINAL; WHITE BLOOD COUNT 10.1 TH/MM3 (4.0-11.0)
--- NOTE | 2017-01-09 10:48 | HHI.NPPN ---
Subjective History of Present Illness 56 year old with ARF sepsis left heel ulcer Additional Remarks Patient remains intubated Review of Systems General Constitutional: Fatigue Objective Data Data 01/08/17 01/09/17 19:00 07:00 Intake Total 1124 ml 1745 ml Output Total 2150 ml 1911 ml Balance -1026 ml -166 ml IV Total 746 ml 1085 ml Tube Feeding 378 ml 620 ml Tube Irrigant 40 ml Output Urine Total 2150 ml 1911 ml Stool Total 0 ml Vital Signs Date Time Temp Pulse Resp B/P Pulse Ox O2 Delivery O2 Flow Rate FiO2 01/09/17 06:00 84 01/09/17 04:02 97 45 01/09/17 04:00 45 01/09/17 04:00 87 01/09/17 04:00 87.0 87 22 131/80 95 01/09/17 02:00 79 01/09/17 00:32 96 45 01/09/17 00:00 100.0 91 26 135/73 95 01/09/17 00:00 87 01/09/17 00:00 45 01/08/17 20:10 95 45 01/08/17 20:00 100.3 91 26 135/73 96 01/08/17 20:00 91 01/08/17 20:00 45 01/08/17 18:05 92 01/08/17 16:45 100 45 01/08/17 16:00 90 01/08/17 16:00 98.9 90 18 138/59 95 01/08/17 16:00 45 01/08/17 14:00 87 01/08/17 12:00 45 01/08/17 12:00 100.3 86 18 124/74 95 01/08/17 12:00 93 01/08/17 11:23 97 45 -: 01/09/17 0500 01/09/17 0500 Physical Exam General Appearance: Well Developed Neck Neck Exam: Neck Supple Pulmonary Resp Exam: Clear Bilaterally Cardiology CV Exam: Regular, Normal Sinus Rhythm Gastrointestinal/Abdomen GI Exam: Soft, Non-Tender Assessment/Plan Problem List: (1) Acute renal failure Plan: BIMAL with ATN Creatinine continues to improve, with increasing UOP Good response to bumex 2mg IV q 8 Diamox as well K low replace cr 1.7 UOP 4.06 L CHF unresolved despite aggressive diuresis order Echocardiogram for LV EF estimation On vancomycin and zosyn per ID Caution with vancomycin - continue to closely monitor levels (2) Sepsis Plan: Patient is on Vanco/Zosyn - left heel ulcer showing a growth of group D enterococcus Continue to follow with ID (3) DM (diabetes mellitus) Plan: Follow blood glucose (4) Rhabdomyolysis Plan: resolved (5) Bladder outlet obstruction Plan: Chamorro catheter is in place (6) Metabolic acidosis Plan: resolved Problem Qualifiers (1) Acute renal failure: Qualified Code: N17.0 - Acute renal failure with tubular necrosis (2) Sepsis: Qualified Code: A41.9 - Sepsis, due to unspecified organism (3) Rhabdomyolysis: Qualified Code: M62.82 - Non-traumatic rhabdomyolysis Nikita Guevara MD Jan 09, 2017 10:47
[2017-01-09] MEDS: fentaNYL DRIP 250 ML IV SCH (10:56)
[2017-01-09] MEDS ORDERED: POTASSIUM CHLOR 40 MEQ PREMIX 100 ML IV ONE (11:00)
--- NOTE | 2017-01-09 11:55 | HHI.CCPN ---
Subjective Remarks/Hospital Course Hospital Course: This is a 56-year-old male who originally came into the emergency department with his left foot wound. He was admitted for IV antibiotics and cellulitis, possible osteomyelitis of the foot. He was seen by Dr. Ospina with infectious disease who felt that this was likely chronic osteo and not acute. Overnight last night he became acutely delirious, and has a very strong alcohol history, and was thought most likely to be an alcohol withdrawal. He was given Ativan. This morning, he was much more somnolent. This afternoon a rapid response was called because the patient was unresponsive. When I arrived, the patient had a oxygen saturation of 30% with a good plethysmograph waveform. He was emergently transferred to the ICU and intubated. He had a chest x-ray showing bilateral pulmonary protrudes in all lobes, more suggestive of ARDS. The patient was tachycardic, febrile, very septic appearing. He is toxic. Unfortunately, the patient is unresponsive and cannot provide any additional history. Subjective: 01/03: remains intubated, sedated. persistent bilateral infiltrates. likely ARDS. remains on vasopressors. 01/04: Continued to spike fever 101.3 Tmax. Chest x-ray shows continued bilateral infiltrates/ARDS. Remains on Levophed at 4 mics per minute. Currently on Zosyn and micafungin, vancomycin added for additional gram- positive coverage 01/05: Continues to be hypoxemic currently on FiO2 65%. Chest x-ray shows worsening bilateral pulmonary edema. Fever trending down currently on vancomycin Zosyn and micafungin. Azithromycin added for atypical coverage. I will also increase PEEP to 12, stop IV fluids and give 2 mg IV Bumex 01/06: FiO2 down to 45%. PEEP remains at 12. 2.8 L urine output creatinine slightly improved to 1.8. Received 2 mg Bumex yesterday, nephrology has started scheduled Bumex 1 mg every 12 today. Chest x-ray shows persistent ARDS/ pulmonary edema 01/07: net euvolemic overnight. clinically appears volume overloaded still. failed CPAP for tachypnea yesterday. afebrile. oxygenation stable. 01/08: net euvolemic overnight again. still volume overloaded. Cr slightly elevated. metabolic alkalosis persists. 01/09: FiO2 down to 45%, achieving negative fluid balance. Urine output more than 4 L. Creatinine remained stable Objective Vital Signs Date Time Temp Pulse Resp B/P Pulse Ox O2 Delivery O2 Flow Rate FiO2 01/09/17 11:26 96 45 01/09/17 06:00 84 01/09/17 04:00 87.0 22 131/80 Intake and Output 01/08/17 01/08/17 01/09/17 08:00 16:00 00:00 Intake Total 1723 ml 1124 ml 553 ml Output Total 1600 ml 2150 ml 261 ml Balance 123 ml -1026 ml 292 ml Result Diagram: 01/09/17 0500 01/09/17 0500 Imaging Last Impressions Chest X-Ray 01/03/17 0600 Signed Impressions: Service Date/Time: December 04:02 - CONCLUSION: Unchanged bilateral pulmonary infiltrates. Issa Wills Jr., MD Chest CT 01/02/17 1645 Signed Impressions: Service Date/Time: Monday, January 02, 2017 22:10 - CONCLUSION: 1. Acute development of bilateral airspace disease as above with some peripheral sparing , especially at the bases. Findings nonspecific. Patient may be developing ARDS/diffuse alveolar damage. Other considerations include infection and severe hypersensitivity type reaction. 2. Endotracheal tube, nasogastric tube and left central line in satisfactory position. Christopher Lagos MD Head CT 01/02/17 Signed Impressions: Service Date/Time: Monday, January 02, 2017 22:08 - CONCLUSION: Normal examination for a patient of this age. No significant change has occurred. Christopher Lagos MD Lower Extremity Ultrasound 01/01/17 Signed Impressions: Service Date/Time: Sunday, January 01, 2017 13:26 - CONCLUSION: Normal examination. Pk Ricks MD Lower Extremity MRI 01/01/17 Signed Impressions: Service Date/Time: Sunday, January 01, 2017 20:03 - CONCLUSION: Subcutaneous soft tissue edema distal leg. No evidence of osteomyelitis of the tibia or fibula. Issa Christiansen MD Foot X-Ray 01/01/17 Signed Impressions: Service Date/Time: Sunday, January 01, 2017 04:49 - CONCLUSION: No acute abnormality. Prior left toe amputation. Issa Wills Jr., MD Foot MRI 01/01/17 Signed Impressions: Service Date/Time: Sunday, January 01, 2017 20:03 - CONCLUSION: 1. Prominent subcutaneous soft tissue edema about the foot and ankle. 2. Abnormal signal in the distal metatarsal head of the 4th digit, characterized by T1 and T2 prolongation. Differential considerations include healing fracture and osteomyelitis. 3. Probable Aburto's neuroma in the interspace between the distal 2nd and 3rd metatarsal bones. Issa Christiansen MD Abdomen/Pelvis CT 12/31/16 1939 Signed Impressions: Service Date/Time: Saturday, December 31, 2016 22:46 - CONCLUSION: 1. No acute abnormality to explain the patient's pain. 2. Colonic diverticulosis. No acute inflammation. 3. Suspected small calcified gallstone. The gallbladder is nondilated. 4. 4.2 cm left adrenal gland adenoma. Issa Wills Jr., MD Abdomen X-Ray 12/31/16 0000 Signed Impressions: Service Date/Time: Saturday, December 31, 2016 19:25 - CONCLUSION: Unremarkable study except for stool. Lela Stephens MD Objective Remarks GENERAL: Middle-aged male, lying in bed, intubated, sedated. critically ill. HEENT: Pupils equal, round, reactive, conjugate. Normocephalic. Atraumatic. Mucous membranes are moist NECK: Obese neck. Unable to assess JVD. 8.[address] CHEST: Decreased air entry bilaterally. Coarse rales throughout all lung aguirre. PRVC/15/500/12/45%. CARDIOVASCULAR: Normal rate, regular rhythm. No appreciable murmurs. ABDOMEN: Obese, soft, nontender, nondistended. No guarding. MUSCULOSKELETAL: 1+ peripheral edema. Distal pulses 2+. There is a small area on his left heel with a nonhealing ulcer. NEUROLOGICAL: RASS -3. Does not follow commands. Purposeful. withdraws x 4 Urinary Catheter: Yes Assessment to: Continue A/P Assessment and Plan Assessment: This is a 56-year-old male with diabetes, left foot nonhealing wound , alcohol dependence, who presents now with acute hypoxic respiratory failure. At this point likely ARDS. continue broad spectrum ABX. For now remains very critically ill with likely ARDS, and renal failure, volume overload, hypoxic respiratory failure. Plan by systems: Neurologic: Metabolic encephalopathy Alcohol withdrawal Agitated delirium Propofol, fentanyl for goal RASS -2. PRN Ativan for breakthrough agitation --Precedex to facilitate ventilator weaning 01/06 --increase clonidine 0.3mg po q8hr --continue seroquel 50mg po q8hr --daily sedation vacation. IV thiamine, multivitamin Frequent neuro checks ammonia 20 on 01/02. Respiratory: Acute hypoxic respiratory failure ARDS Aspiration pneumonitis Vent bundle, Head of bed at 30 Wean FiO2 for goal SPO2 greater than 90% Low tidal volume ventilation targeting 6 kg ideal body weight Attempt decrease PEEP to 10 today again, as he failed yesterday Clinically not ready for extubation. no sbt today given ventilatory requirements. Cardiovascular: Sinus tachycardia- resolving. Septic shock-resolved Off all pressors. Hypertensive ---Bumex 2 mg IV q8h with albumin 25%. -- clonidine 0.2mg q8hr. Renal: Acute kidney injury Likely prerenal/ATN secondary to sepsis. --Strict I/Os, Chamorro Every hour urine outputs --Creat continues to improve --Bumex as above FEN/GI: Acute protein calorie malnutritionmild Hyperkalemia Hypomagnesemia Metabolic Alkalosis Trend BMP --TF, Glucerna 1.5, goal of 50, nutrition consult. --Protonix 40 mg IV q12 -- diamox 500mg iv q8hr x 3 doses Heme/ID: Left foot nonhealing ulceration Septic shock- resolved. 01/02 sputum: NGTD --01/02 blood: NGTD --01/02 urine: NGTD. --01/02 heel wound culture enterococcus sensitive to ampicillin --F/u cultures from 01/04 Continue Zosyn, and vancomycin. Azithromycin and micafungin DCd by ID 01/05/17 ID: Dr. Ospina following Daily CBC procalcitonin elevated at 8. Likely bacterial infection. Endocrine: Diabetes Hyperglycemia of critical illness -- SSI, medium scale, every 6 Prophylaxis: GI Prophylaxis Protonix DVT Prophylaxis --SCDs Subcutaneous heparin Lines: 01/02 left IJ triple-lumen catheter Chamorro Dispo: remain in the ICU. He remains critically ill. This patient remains critically ill with one or more organ systems which are or may become a threat to life. I have spent in excess of 33 minutes discontinuously in the care and management of this patient. This time is exclusive of procedures, and includes, but is not limited to, evaluation of the patient, review of the medical record, discussions with family, consultants, nursing staff, or respiratory therapy, and documentation in the medical record. Meliza Whittington MD Jan 09, 2017 11:55
--- NOTE | 2017-01-09 13:50 | RADRPT ---
EXAM DATE/TIME: 01/09/2017 13:15 [facility] COMPARISON: CHEST SINGLE AP, January 06, 2017, 4:53. INDICATIONS : Respiratory disease. MEDICAL HISTORY : Diabetes mellitus type II. Renal insufficiency. Cardiovascular disease. SURGICAL HISTORY : None. ENCOUNTER: Subsequent ACUITY: 2 weeks PAIN SCORE: Non-responsive. LOCATION: Bilateral chest FINDINGS: Endotracheal tube tip at the inferior margin of the clavicles. Left jugular line tip overlies the SVC . There is improved aeration of both lungs since the previous study however patchy bilateral air spac e disease remains greatest at the lung bases. There is cardiomegaly. CONCLUSION: Improved aeration. Sly Sánchez MD on January 09, 2017 at 13:47 Board Certified Radiologist. This report was verified electronically.
--- NOTE | 2017-01-09 14:04 | HHI.IDPN ---
Subjective Subjective Remarks Pt remains on vent having low grade fever T max 100.8 Antibiotics zosyn Lines Line sites ok. Past Medical History BM, ETOHism tobaccoism Allergies: Coded Allergies: Toradol (Verified Allergy, Intermediate, Headache, 12/31/16) Objective . Vital Signs Date Time Temp Pulse Resp B/P Pulse Ox O2 Delivery O2 Flow Rate FiO2 01/09/17 11:26 96 45 01/09/17 08:40 95 75 01/09/17 06:00 84 01/09/17 04:02 97 45 01/09/17 04:00 45 01/09/17 04:00 87 01/09/17 04:00 87.0 87 22 131/80 95 01/09/17 02:00 79 01/09/17 00:32 96 45 01/09/17 00:00 100.0 91 26 135/73 95 01/09/17 00:00 87 01/09/17 00:00 45 01/08/17 20:10 95 45 01/08/17 20:00 100.3 91 26 135/73 96 01/08/17 20:00 91 01/08/17 20:00 45 01/08/17 18:05 92 01/08/17 16:45 100 45 01/08/17 16:00 90 01/08/17 16:00 98.9 90 18 138/59 95 01/08/17 16:00 45 01/08/17 01/08/17 01/09/17 15:00 23:00 07:00 Intake Total 1677 ml 1192 ml Output Total 2411 ml 1650 ml Balance -734 ml -458 ml IV Total 1299 ml 532 ml Tube Feeding 378 ml 620 ml Tube Irrigant 40 ml Output Urine Total 2411 ml 1650 ml Stool Total 0 ml 0 ml . Laboratory Tests Test 01/08/17 01/09/17 03:30 05:00 White Blood Count 10.6 TH/MM3 10.1 TH/MM3 Red Blood Count 3.02 MIL/MM3 3.12 MIL/MM3 Hemoglobin 10.2 GM/DL 10.7 GM/DL Hematocrit 30.2 % 31.3 % Mean Corpuscular Volume 100.0 FL 100.1 FL Mean Corpuscular Hemoglobin 33.9 PG 34.2 PG Mean Corpuscular Hemoglobin 33.9 % 34.2 % Concent Red Cell Distribution Width 13.5 % 13.6 % Platelet Count 504 TH/MM3 610 TH/MM3 Mean Platelet Volume 9.4 FL 9.4 FL Laboratory Tests Test 01/08/17 01/09/17 03:30 05:00 Sodium Level 145 MEQ/L 143 MEQ/L Potassium Level 3.7 MEQ/L 3.3 MEQ/L Chloride Level 106 MEQ/L 104 MEQ/L Carbon Dioxide Level 30.1 MEQ/L 30.1 MEQ/L Anion Gap 9 MEQ/L 9 MEQ/L Blood Urea Nitrogen 27 MG/DL 33 MG/DL Creatinine 1.71 MG/DL 1.75 MG/DL Estimat Glomerular Filtration 42 ML/MIN 41 ML/MIN Rate Random Glucose 269 MG/DL 222 MG/DL Calcium Level 8.6 MG/DL 9.2 MG/DL Imaging Last Impressions Chest X-Ray 01/09/17 0000 Signed Impressions: Service Date/Time: Monday, January 09, 2017 13:15 - CONCLUSION: Improved aeration. Sly Sánchez MD Chest CT 01/02/17 1645 Signed Impressions: Service Date/Time: Monday, January 02, 2017 22:10 - CONCLUSION: 1. Acute development of bilateral airspace disease as above with some peripheral sparing , especially at the bases. Findings nonspecific. Patient may be developing ARDS/diffuse alveolar damage. Other considerations include infection and severe hypersensitivity type reaction. 2. Endotracheal tube, nasogastric tube and left central line in satisfactory position. Christopher Lagos MD Head CT 01/02/17 Signed Impressions: Service Date/Time: Monday, January 02, 2017 22:08 - CONCLUSION: Normal examination for a patient of this age. No significant change has occurred. Christopher Lagos MD Lower Extremity Ultrasound 01/01/17 Signed Impressions: Service Date/Time: Sunday, January 01, 2017 13:26 - CONCLUSION: Normal examination. Pk Ricks MD Lower Extremity MRI 01/01/17 Signed Impressions: Service Date/Time: Sunday, January 01, 2017 20:03 - CONCLUSION: Subcutaneous soft tissue edema distal leg. No evidence of osteomyelitis of the tibia or fibula. Issa Christiansen MD Foot X-Ray 01/01/17 Signed Impressions: Service Date/Time: Sunday, January 01, 2017 04:49 - CONCLUSION: No acute abnormality. Prior left toe amputation. Issa Wills Jr., MD Foot MRI 01/01/17 0000 Signed Impressions: Service Date/Time: Sunday, January 01, 2017 20:03 - CONCLUSION: 1. Prominent subcutaneous soft tissue edema about the foot and ankle. 2. Abnormal signal in the distal metatarsal head of the 4th digit, characterized by T1 and T2 prolongation. Differential considerations include healing fracture and osteomyelitis. 3. Probable Aburto's neuroma in the interspace between the distal 2nd and 3rd metatarsal bones. Issa Christiansen MD Abdomen/Pelvis CT 12/31/16 193 Signed Impressions: Service Date/Time: Saturday, December 31, 2016 22:46 - CONCLUSION: 1. No acute abnormality to explain the patient's pain. 2. Colonic diverticulosis. No acute inflammation. 3. Suspected small calcified gallstone. The gallbladder is nondilated. 4. 4.2 cm left adrenal gland adenoma. Issa Wills Jr., MD Abdomen X-Ray 12/31/16 0000 Signed Impressions: Service Date/Time: Saturday, December 31, 2016 19:25 - CONCLUSION: Unremarkable study except for stool. KMarlo Stephens MD Physical Exam CONSTITUTIONAL/GENERAL: This is an obese patient, in no apparent distress. sedated int'd on [facility] vent TUBES/LINES/DRAINS: SKIN: No jaundice, rashes, or lesions. HEAD: Atraumatic. Normocephalic. EYES: Pupils equal and round and reactive. Extraocular motions intact. No scleral icterus. No injection or drainage. Fundi not examined. ENT: Oral mucosae moist, dentition poor orally int'd NECK: Trachea midline. Supple, nontender. CARDIOVASCULAR: Regular rate and rhythm without murmurs, gallops, or rubs. No JVD. Peripheral pulses symmetric. RESPIRATORY/CHEST: Symmetric, unlabored respirations. Breath sounds equal bilaterally. occ creps GASTROINTESTINAL: Abdomen soft, non-tender, nondistended. Bowel sounds present. GENITOURINARY: Without palpable bladder distension. Chamorro catheter in place with slightly cloudy yellow urine MUSCULOSKELETAL: Extremities without clubbing, cyanosis, or edema. NEUROLOGICAL: sedated unresponsive PSYCHIATRIC: unable to assess Assessment & Plan Remarks Septic shock likely secondary to aspiration pneumonia Aspiration PNA likely related to alcoholism Admitted for obstructive uropathy and ARF Acute renal failurelikely post obstructive Rhabdomyolysis Acute urinary retention Left heel chronic diabetic ulcer, no e/o osteo of L heel sp b/s debridement - growing enterococccus along with skin ricky from surface clx ; doubt clin significance - this is likely not the source of pt possible sepsis Hypoxia with new infiltrates ? ARDS ? 2/2 sepsis vs aspiration pneumonitis Persistent low grade fever Recs will dc Zosyn today (7 days) Follow clinically. chk blood and urine clx dw Mi Hernandez MD Jan 09, 2017 14:04
--- NOTE | 2017-01-09 21:00 | EC ---
Study Study Date:01/09/2017 STUDY CONCLUSIONS SUMMARY LEFT VENTRICLE: The cavity size was normal. Wall thickness was increased in a pattern of mild LVH. There was concentric hypertrophy. Systolic function was normal. The estimated ejection fraction was in the range of 55% to 60%. Wall motion was normal; there were no regional wall motion abnormalities. Features are consistent with a pseudonormal left ventricular filling pattern, with concomitant abnormal relaxation and increased filling pressure (grade 2 diastolic dysfunction). If LV function is below 40, please consider prescribing an ACEI or ARB or document rationale for non-use. PROCEDURE DATA STUDY STATUS: Elective. Procedure: Transthoracic echocardiography. Image quality was good. Scanning was performed from the parasternal, apical, and subcostal acoustic windows. Study completion: The patient tolerated the procedure well. Transthoracic echocardiography. M-mode, complete 2D, complete spectral Doppler, and color Doppler. Height: Height: 74in. Weight: Weight: 239.5lb. Body mass index: BMI: 30.8kg/m^2. Body surface area: BSA: 2.35m^2. Patient status: Inpatient. CARDIAC ANATOMY LEFT VENTRICLE: The cavity size was normal. Wall thickness was increased in a pattern of mild LVH. There was concentric hypertrophy. Systolic function was normal. The estimated ejection fraction was in the range of 55% to 60%. Wall motion was normal; there were no regional wall motion abnormalities. Features are consistent with a pseudonormal left ventricular filling pattern, with concomitant abnormal relaxation and increased filling pressure (grade 2 diastolic dysfunction). AORTIC VALVE: Probably trileaflet. Doppler: There was no stenosis. No significant regurgitation. Valve area: 2.36cm^2 (Vmax). Indexed valve area: 1cm^2/m^2 (Vmax). Peak gradient: 10mm Hg (S). MITRAL VALVE: The valve appears to be grossly normal. Doppler: There was no evidence for stenosis. No significant regurgitation. Valve area by pressure half-time: 3.44cm^2. Indexed valve area by pressure half-time: 1.46cm^2/m^2. Mean gradient: 3mm Hg (D). Peak gradient: 5mm Hg (D). LEFT ATRIUM: The atrium was normal in size. RIGHT VENTRICLE: The cavity size was normal. PULMONIC VALVE: Not well visualized. TRICUSPID VALVE: The valve appears to be grossly normal. Doppler: There was no evidence for stenosis. Trace regurgitation. Peak gradient: 18mm Hg (D). PERICARDIUM: There was no pericardial effusion. Patient weight: 239.5lb _Ejection fraction:_ 65-75% _Fractional shortening:_ 32% up to 5Kg 5-11.5Kg 11.6-22.9Kg 23-45Kg 45-57Kg Aortic Root 7-13 <17 13-22 17-27 17-27 LA diam 6-13 <23 24-38 33-47 37-40 RVID 10-17 7-15 7-15 7-18 8-17 LVIDd 12-22 <32 24-38 33-47 37-40 LVPW 2-4 3-6 5-7 6-8 7-8 IVS 2-4 3-6 5-7 6-8 7-8 BASIC MEASUREMENTS ADULT NORMAL Left ventricle LV internal dimension, ED, chordal 51.8 mm 43-52 level, PLAX LV internal dimension, ES, chordal *38.1 mm 23-38 level, PLAX Fractional shortening, chordal level, *26 % >29 PLAX LV posterior wall thickness, ED 11.8 mm IVS/LVPW ratio, ED 0.98 <1.3 Volume, ED, MOD, 1-plane 119 ml Volume, ES, MOD, 1-plane 51 ml Ejection fraction, MOD, 1-plane 57 % Stroke volume, MOD, 1-plane 68 ml Volume index, ED, MOD, 1-plane 51 ml/m^2 Volume index, ES, MOD, 1-plane 22 ml/m^2 Stroke index, MOD, 1-plane 28.9 ml/m^2 Ventricular septum Septal thickness, ED 11.6 mm Left atrium Anterior-posterior dimension 29 mm Anterior-posterior dimension index 1.23 cm/m^2 <2.2 BASIC MEASUREMENTS ADULT NORMAL Aorta Root diameter, ED 35 mm 20-37 DOPPLER MEASUREMENTS ADULT NORMAL Aortic valve Peak velocity, S 160 cm/s VTI, S 26.5 cm Peak gradient, S 10 mm Hg Valve area, Vmax 2.36 cm^2 Valve area index, Vmax 1 cm^2/m^2 Mitral valve Peak E-wave velocity 93.8 cm/s Peak A-wave velocity 71.1 cm/s Mean velocity, D 76.9 cm/s Pressure half-time 64 ms Mean gradient, D 3 mm Hg Peak gradient, D 5 mm Hg Peak E/A ratio 1.3 Valve area, pressure half-time 3.44 cm^2 Valve area index, pressure half-time 1.46 cm^2/m^2 Tricuspid valve Peak gradient, D 18 mm Hg Maximal inflow velocity 212 cm/s Systemic veins Estimated CVP 15 mm Hg Pulmonic valve Peak velocity, S 111 cm/s LEGEND: Mean values are shown as u=mean value. Asterisk (*) watters values outside specified normal range. Prepared and signed by Low Sims [id number]
[2017-01-09] MEDS: PANTOPRAZOLE SODIUM 40 MG VIAL IV PUSH SCH (21:44)
[2017-01-09] MEDS: SODIUM CHLORIDE 0.9% FLUSH 10 ML FLUSH IV FLUSH SCH (21:44)
[2017-01-10] VITALS (17 sets, daily range): BP systolic 121–150; BP diastolic 58–84; PULSE 74–98; RESP 18–22; TEMP 97.8–102; O2SAT 91–95
[2017-01-10] MEDS: DEXMEDETOMIDINE INJ 1,000 MCG in SODIUM CHLOR 0.9% 250 ML INJ 240 ML IV SCH ×4 (00:30→20:13)
[2017-01-10] MEDS: BUMETANIDE INJ 1 MG/4 ML VIAL IV PUSH SCH ×3 (01:16→16:00)
[2017-01-10] MEDS: PROPOFOL 1000 MG/100 ML INJ 100 ML IV SCH ×2 (02:46→13:19)
[2017-01-10] MEDS: RESP: ALBUTEROL 2.5 MG/IPRATROPIUM 0.5 MG NEB (SCH) INH ×2 (03:13→07:58)
[2017-01-10 04:56] LABS: AUTOMATED NEUTROPHIL # 6.7 TH/MM3 (1.8-7.7); BASOPHIL # 0.1 TH/MM3 (0-0.2); BASOPHIL % 1.3 % (0.0-2.0); EOSINOPHIL # 1.1 TH/MM3 (0-0.4); EOSINOPHIL % 9.7 % (0.0-4.0); HEMATOCRIT 33.5 % (39.0-51.0); LYMPH % 21.7 % (9.0-44.0); LYMPHOCYTE # 2.5 TH/MM3 (1.0-4.8); MEAN CELL VOLUME 98.3 FL (80.0-100.0); MEAN CORPUSCULAR HGB CONC 34.6 % (32.0-36.0); MONO % 8.5 % (0.0-8.0); NEUT % 58.8 % (16.0-70.0); PLATELET COUNT 647 TH/MM3 (150-450); RED BLOOD COUNT 3.41 MIL/MM3 (4.50-5.90); RED CELL DISTRIBUTION WIDTH 13.9 % (11.6-17.2); WHITE BLOOD COUNT 11.5 TH/MM3 (4.0-11.0)
[2017-01-10 05:19] LABS: BICARBONATE 29.6 MEQ/L (21.0-32.0); HEMO FLAGS AUTO DIFF; MAGNESIUM 2.3 MG/DL (1.5-2.5); POTASSIUM 3.5 MEQ/L (3.5-5.1)
[2017-01-10] MEDS: HEPARIN SODIUM - SQ 10,000 UNITS/ML VIAL SQ SCH ×3 (05:56→21:42)
[2017-01-10] MEDS: cloNIDine HCL 0.3 MG TAB PO SCH ×3 (05:56→21:42)
[2017-01-10] MEDS: QUEtiapine FUMARATE 100 MG TAB PO SCH ×3 (05:56→21:43)
[2017-01-10] MEDS: INSULIN NovoLIN REGULAR SUPPLEMENTAL SCALE SQ SCH ×4 (05:56→18:00)
[2017-01-10 07:01] LABS: BANDS 4 % (0-6); BASOPHILS 1 % (0-2); EOSINOPHILS 9 % (0-4); MYELOCYTES 1 % (0-0); NEUTROPHIL # MANUAL DIFF 6.6 TH/MM3 (1.8-7.7); PLASMA CELLS 1 % (0-0); POLYS (SEG NEUTROPHILS) 52 % (16-70); WBC DIFF SAMPLE 100
[2017-01-10 07:02] LABS: HOWELL-JOLLY BODIES PRESENT (NONE SEEN); PLATELET ESTIMATE SMEAR HIGH (NORMAL); PLATELET MORPHOLOGY NORMAL (NORMAL); SCAN/DIFF FINAL DIFF MANUAL
[2017-01-10] MEDS: COLLAGENASE OINT 30 GM TUBE TOPICAL SCH (09:00)
[2017-01-10] MEDS: DOCUSATE SODIUM 100 MG/10 ML UDC PO SCH ×2 (09:06→21:42)
[2017-01-10] MEDS: THIAMINE HCL 100 MG TAB PO SCH (09:06)
[2017-01-10] MEDS: SENNOSIDES SYRUP 8.8 MG/5 ML CUP PO SCH (09:06)
[2017-01-10] MEDS: LORazepam 2 MG/ML VIAL IV PRN (09:06)
[2017-01-10] MEDS: CHLORHEXIDINE 0.12% (ORAL KIT) 15 ML CUP MT SCH ×2 (09:06→21:41)
[2017-01-10] MEDS: TAMSULOSIN HCL 0.4 MG CAP PO SCH (09:07)
[2017-01-10] MEDS: MULTIVITAMIN TAB PO SCH (09:07)
[2017-01-10] MEDS: SODIUM CHLORIDE 0.9% FLUSH 10 ML FLUSH IV FLUSH SCH ×2 (09:07→21:41)
[2017-01-10] MEDS: ASPIRIN EC 81 MG TABEC PO SCH (09:07)
--- NOTE | 2017-01-10 10:52 | HHI.NPPN ---
Subjective History of Present Illness 56 year old with ARF sepsis left heel ulcer Additional Remarks Patient remains intubated Review of Systems General Constitutional: Fatigue Objective Data Data 01/09/17 01/10/17 19:00 07:00 Intake Total 1350 ml 1837 ml Output Total 1800 ml 2900 ml Balance -450 ml -1063 ml IV Total 650 ml 1204 ml Tube Feeding 500 ml 563 ml Other 200 ml 70 ml Output Urine Total 1800 ml 2900 ml # Bowel Movements 1 0 Vital Signs Date Time Temp Pulse Resp B/P Pulse Ox O2 Delivery O2 Flow Rate FiO2 01/10/17 08:00 45 01/10/17 08:00 84 01/10/17 07:48 95 45 01/10/17 06:00 85 01/10/17 04:05 93 45 01/10/17 04:00 45 01/10/17 04:00 98.9 87 20 149/84 93 01/10/17 04:00 87 01/10/17 02:00 86 01/10/17 01:04 94 45 01/10/17 00:00 89 01/10/17 00:00 45 01/10/17 00:00 98.7 89 22 148/84 95 01/09/17 22:21 94 45 01/09/17 22:00 86 01/09/17 20:00 85 01/09/17 20:00 45 01/09/17 20:00 98.0 85 20 145/78 96 01/09/17 19:53 95 45 01/09/17 18:00 89 01/09/17 16:13 95 45 01/09/17 16:00 98.7 90 25 144/85 95 01/09/17 16:00 90 01/09/17 16:00 45 01/09/17 14:00 84 01/09/17 12:00 45 01/09/17 12:00 99.0 95 22 144/84 96 01/09/17 12:00 95 01/09/17 11:26 96 45 -: 01/10/17 0355 01/10/17 0355 Physical Exam General Appearance: Well Developed Neck Neck Exam: Neck Supple Pulmonary Resp Exam: Clear Bilaterally Cardiology CV Exam: Regular, Normal Sinus Rhythm Gastrointestinal/Abdomen GI Exam: Soft, Non-Tender Assessment/Plan Problem List: (1) Acute renal failure Plan: BIMAL with ATN Creatinine continues to improve, with increasing UOP Good response to bumex 2mg IV q 8 K replace as on diuretic cr 1.8 UOP 4.7 L CHF Echocardiogram for LV EF 55-60% Diastolic dysfunction On vancomycin and zosyn per ID Caution with vancomycin - continue to closely monitor levels (2) Sepsis Plan: Patient is on Vanco/Zosyn - left heel ulcer showing a growth of group D enterococcus Continue to follow with ID (3) DM (diabetes mellitus) Plan: Follow blood glucose (4) Rhabdomyolysis Plan: resolved (5) Bladder outlet obstruction Plan: Chamorro catheter is in place (6) Metabolic acidosis Plan: resolved Problem Qualifiers (1) Acute renal failure: Qualified Code: N17.0 - Acute renal failure with tubular necrosis (2) Sepsis: Qualified Code: A41.9 - Sepsis, due to unspecified organism (3) Rhabdomyolysis: Qualified Code: M62.82 - Non-traumatic rhabdomyolysis Nikita Guevara MD Jan 10, 2017 10:52
[2017-01-10] MEDS: POTASSIUM CHLORIDE 20 MEQ PWD PACKET NG SCH ×2 (11:00→21:00)
--- NOTE | 2017-01-10 13:06 | HHI.IDPN ---
Subjective Subjective Remarks ID Xcover for . is a 56 y/o CM who originally came into the emergency department with his left foot wound. He was admitted for IV antibiotics and cellulitis, possible osteomyelitis of the foot. He was seen by Dr. Ospina with infectious disease who felt that this was likely chronic osteo and not acute. Patient became acutely delirious on the floor and a rapid response was called because the patient was unresponsive. He was emergently transferred to the ICU and intubated. He had a chest x-ray showing bilateral pulmonary infiltrates in all lobes, more suggestive of ARDS. Patient remains in the ICU and was intubated and on vasopressors. CXR with b/l infiltrates ? ARDS. On Zosyn IV and Micafungin IV, vanco IV Overnight events reviewed. RN reports temp of 102 F. Chest x-ray shows worsening improved infiltrates. PEEP reduced. Secretions white, thin, minimal. Fever trending down Sedated on vent. No diarrhea Tolerating tube feeds Secretions moderate beige color. UO ok. Antibiotics None Lines Line sites ok. Past Medical History BM, ETOHism tobaccoism Allergies: Coded Allergies: Toradol (Verified Allergy, Intermediate, Headache, 12/31/16) Objective . Vital Signs Date Time Temp Pulse Resp B/P Pulse Ox O2 Delivery O2 Flow Rate FiO2 01/10/17 11:39 95 45 01/10/17 10:00 84 01/10/17 08:00 45 01/10/17 08:00 84 01/10/17 08:00 97.8 90 18 149/84 94 01/10/17 07:48 95 45 01/10/17 06:00 85 01/10/17 04:05 93 45 01/10/17 04:00 45 01/10/17 04:00 98.9 87 20 149/84 93 01/10/17 04:00 87 01/10/17 02:00 86 01/10/17 01:04 94 45 01/10/17 00:00 89 01/10/17 00:00 45 01/10/17 00:00 98.7 89 22 148/84 95 01/09/17 22:21 94 45 01/09/17 22:00 86 01/09/17 20:00 85 01/09/17 20:00 45 01/09/17 20:00 98.0 85 20 145/78 96 01/09/17 19:53 95 45 01/09/17 18:00 89 01/09/17 16:13 95 45 01/09/17 16:00 98.7 90 25 144/85 95 01/09/17 16:00 90 01/09/17 16:00 45 01/09/17 14:00 84 01/09/17 01/09/17 01/10/17 15:00 23:00 07:00 Intake Total 1350 ml 849 ml 988 ml Output Total 1800 ml 1300 ml 1600 ml Balance -450 ml -451 ml -612 ml IV Total 650 ml 666 ml 538 ml Tube Feeding 500 ml 143 ml 420 ml Other 200 ml 40 ml 30 ml Output Urine Total 1800 ml 1300 ml 1600 ml # Bowel Movements 1 0 0 . Laboratory Tests Test 01/09/17 01/10/17 05:00 03:55 White Blood Count 10.1 TH/MM3 11.5 TH/MM3 Red Blood Count 3.12 MIL/MM3 3.41 MIL/MM3 Hemoglobin 10.7 GM/DL 11.6 GM/DL Hematocrit 31.3 % 33.5 % Mean Corpuscular Volume 100.1 FL 98.3 FL Mean Corpuscular Hemoglobin 34.2 PG 34.0 PG Mean Corpuscular Hemoglobin 34.2 % 34.6 % Concent Red Cell Distribution Width 13.6 % 13.9 % Platelet Count 610 TH/MM3 647 TH/MM3 Mean Platelet Volume 9.4 FL 9.0 FL Neutrophils (%) (Auto) 58.8 % Lymphocytes (%) (Auto) 21.7 % Monocytes (%) (Auto) 8.5 % Eosinophils (%) (Auto) 9.7 % Basophils (%) (Auto) 1.3 % Neutrophils # (Auto) 6.7 TH/MM3 Lymphocytes # (Auto) 2.5 TH/MM3 Monocytes # (Auto) 1.0 TH/MM3 Eosinophils # (Auto) 1.1 TH/MM3 Basophils # (Auto) 0.1 TH/MM3 CBC Comment AUTO DIFF Differential Total Cells 100 Counted Neutrophils % (Manual) 52 % Band Neutrophils % 4 % Lymphocytes % 27 % Monocytes % 5 % Eosinophils % 9 % Basophils % 1 % Neutrophils # (Manual) 6.6 TH/MM3 Myelocytes 1 % Differential Comment FINAL DIFF MANUAL Plasma Cells 1 % Platelet Estimate HIGH Platelet Morphology Comment NORMAL [place] Bodies PRESENT Laboratory Tests Test 01/09/17 01/10/17 05:00 03:55 Sodium Level 143 MEQ/L 144 MEQ/L Potassium Level 3.3 MEQ/L 3.5 MEQ/L Chloride Level 104 MEQ/L 105 MEQ/L Carbon Dioxide Level 30.1 MEQ/L 29.6 MEQ/L Anion Gap 9 MEQ/L 9 MEQ/L Blood Urea Nitrogen 33 MG/DL 42 MG/DL Creatinine 1.75 MG/DL 1.89 MG/DL Estimat Glomerular Filtration 41 ML/MIN 37 ML/MIN Rate Random Glucose 222 MG/DL 264 MG/DL Calcium Level 9.2 MG/DL 9.1 MG/DL Phosphorus Level 4.6 MG/DL Magnesium Level 2.3 MG/DL Albumin 3.0 GM/DL Imaging Last Impressions Chest X-Ray 01/09/17 0000 Signed Impressions: Service Date/Time: Monday, January 09, 2017 13:15 - CONCLUSION: Improved aeration. Sly Sánchez MD Chest CT 01/02/17 1645 Signed Impressions: Service Date/Time: Monday, January 02, 2017 22:10 - CONCLUSION: 1. Acute development of bilateral airspace disease as above with some peripheral sparing , especially at the bases. Findings nonspecific. Patient may be developing ARDS/diffuse alveolar damage. Other considerations include infection and severe hypersensitivity type reaction. 2. Endotracheal tube, nasogastric tube and left central line in satisfactory position. Christopher Lagos MD Head CT 01/02/17 Signed Impressions: Service Date/Time: Monday, January 02, 2017 22:08 - CONCLUSION: Normal examination for a patient of this age. No significant change has occurred. Christopher Lagos MD Lower Extremity Ultrasound 01/01/17 Signed Impressions: Service Date/Time: Sunday, January 01, 2017 13:26 - CONCLUSION: Normal examination. Pk Ricks MD Lower Extremity MRI 01/01/17 Signed Impressions: Service Date/Time: Sunday, January 01, 2017 20:03 - CONCLUSION: Subcutaneous soft tissue edema distal leg. No evidence of osteomyelitis of the tibia or fibula. Issa Christiansen MD Foot X-Ray 01/01/17 Signed Impressions: Service Date/Time: Sunday, January 01, 2017 04:49 - CONCLUSION: No acute abnormality. Prior left toe amputation. Issa Wills Jr., MD Foot MRI 01/01/17 0000 Signed Impressions: Service Date/Time: Sunday, January 01, 2017 20:03 - CONCLUSION: 1. Prominent subcutaneous soft tissue edema about the foot and ankle. 2. Abnormal signal in the distal metatarsal head of the 4th digit, characterized by T1 and T2 prolongation. Differential considerations include healing fracture and osteomyelitis. 3. Probable Aburto's neuroma in the interspace between the distal 2nd and 3rd metatarsal bones. Issa Christiansen MD Abdomen/Pelvis CT 12/31/161938 Signed Impressions: Service Date/Time: Saturday, December 31, 2016 22:46 - CONCLUSION: 1. No acute abnormality to explain the patient's pain. 2. Colonic diverticulosis. No acute inflammation. 3. Suspected small calcified gallstone. The gallbladder is nondilated. 4. 4.2 cm left adrenal gland adenoma. Issa Wills Jr., MD Abdomen X-Ray 12/31/16 0000 Signed Impressions: Service Date/Time: Saturday, December 31, 2016 19:25 - CONCLUSION: Unremarkable study except for stool. Lela Stephens MD Physical Exam CONSTITUTIONAL/GENERAL: This is an obese patient, in no apparent distress. sedated int'd on [facility] vent TUBES/LINES/DRAINS: SKIN: No jaundice, rashes, or lesions. HEAD: Atraumatic. Normocephalic. EYES: Pupils equal and round and reactive. Extraocular motions intact. No scleral icterus. No injection or drainage. Fundi not examined. ENT: Oral mucosae moist, dentition poor orally int'd NECK: Trachea midline. Supple, nontender. CARDIOVASCULAR: Regular rate and rhythm without murmurs, gallops, or rubs. No JVD. Peripheral pulses symmetric. RESPIRATORY/CHEST: Symmetric, unlabored respirations. Breath sounds equal bilaterally. GASTROINTESTINAL: Abdomen soft, non-tender, nondistended. Bowel sounds present. GENITOURINARY: Without palpable bladder distension. Saunders catheter in place with slightly cloudy yellow urine MUSCULOSKELETAL: Extremities without clubbing, cyanosis, or edema. NEUROLOGICAL: sedated unresponsive PSYCHIATRIC: unable to assess Foot no s.o active infection such as erythema, warmth. Assessment & Plan Remarks Septic shock likely secondary to aspiration pneumonia, resolved. Sepsis possible. New or ongoing. Aspiration PNA likely related to alcoholism. Now with ? HCAP. Has no CLs. Obstructive uropathy and ARF Acute renal failurelikely post obstructive Rhabdomyolysis Acute urinary retention Left heel chronic diabetic ulcer, no e/o osteo of L heel sp b/s debridement - growing enterococccus along with skin ricky from surface clx ; doubt clin significance - this is likely not the source of pt possible sepsis Hypoxia with new infiltrates ? ARDS ? 2/2 sepsis vs aspiration pneumonitis Persistent low grade fever Recs Blood cultures x 2 Change Saunders if possible. If saunders cannot be changed ok to send UA from current catheter. CXR to follow up on PNA or new infiltrate. Check Procalcitonin. Observe off antibiotics as currently clinically stable. If any change in clinical condition overnight ok to start Zosyn IV, Vanco IV x 1 dose and Micafungin IV x 1 dose (as pt was on BSA and had CLs) Follow cultures. Follow clinically. dez RN and . Critical thinking and decision making. Total time > 40 mins. Guillermina Jain MD Jan 10, 2017 13:06
[2017-01-10] MEDS: fentaNYL DRIP 250 ML IV SCH (13:20)
--- NOTE | 2017-01-10 13:52 | HHI.CCPN ---
Subjective Remarks/Hospital Course Hospital Course: This is a 56-year-old male who originally came into the emergency department with his left foot wound. He was admitted for IV antibiotics and cellulitis, possible osteomyelitis of the foot. He was seen by Dr. Ospina with infectious disease who felt that this was likely chronic osteo and not acute. Overnight last night he became acutely delirious, and has a very strong alcohol history, and was thought most likely to be an alcohol withdrawal. He was given Ativan. This morning, he was much more somnolent. This afternoon a rapid response was called because the patient was unresponsive. When I arrived, the patient had a oxygen saturation of 30% with a good plethysmograph waveform. He was emergently transferred to the ICU and intubated. He had a chest x-ray showing bilateral pulmonary protrudes in all lobes, more suggestive of ARDS. The patient was tachycardic, febrile, very septic appearing. He is toxic. Unfortunately, the patient is unresponsive and cannot provide any additional history. Subjective: 01/03: remains intubated, sedated. persistent bilateral infiltrates. likely ARDS. remains on vasopressors. 01/04: Continued to spike fever 101.3 Tmax. Chest x-ray shows continued bilateral infiltrates/ARDS. Remains on Levophed at 4 mics per minute. Currently on Zosyn and micafungin, vancomycin added for additional gram- positive coverage 01/05: Continues to be hypoxemic currently on FiO2 65%. Chest x-ray shows worsening bilateral pulmonary edema. Fever trending down currently on vancomycin Zosyn and micafungin. Azithromycin added for atypical coverage. I will also increase PEEP to 12, stop IV fluids and give 2 mg IV Bumex 01/06: FiO2 down to 45%. PEEP remains at 12. 2.8 L urine output creatinine slightly improved to 1.8. Received 2 mg Bumex yesterday, nephrology has started scheduled Bumex 1 mg every 12 today. Chest x-ray shows persistent ARDS/ pulmonary edema 01/07: net euvolemic overnight. clinically appears volume overloaded still. failed CPAP for tachypnea yesterday. afebrile. oxygenation stable. 01/08: net euvolemic overnight again. still volume overloaded. Cr slightly elevated. metabolic alkalosis persists. 01/09: FiO2 down to 45%, achieving negative fluid balance. Urine output more than 4 L. Creatinine remained stable 01/10:: Patient remains on 45% oxygen and PEEP of 8, heavily sedated with propofol fentanyl and Precedex. [place] fever of 102. Hemodynamically stable Objective Vital Signs Date Time Temp Pulse Resp B/P Pulse Ox O2 Delivery O2 Flow Rate FiO2 01/10/17 11:39 95 45 01/10/17 10:00 84 01/10/17 08:00 97.8 18 149/84 Intake and Output 01/09/17 01/09/17 01/10/17 08:00 16:00 00:00 Intake Total 1192 ml 1350 ml 849 ml Output Total 1650 ml 1800 ml 1300 ml Balance -458 ml -450 ml -451 ml Result Diagram: 01/10/17 0355 01/10/17 0355 Imaging Last Impressions Chest X-Ray 01/03/17 0600 Signed Impressions: Service Date/Time: December 04:02 - CONCLUSION: Unchanged bilateral pulmonary infiltrates. Issa Wills Jr., MD Chest CT 01/02/17 1645 Signed Impressions: Service Date/Time: Monday, January 02, 2017 22:10 - CONCLUSION: 1. Acute development of bilateral airspace disease as above with some peripheral sparing , especially at the bases. Findings nonspecific. Patient may be developing ARDS/diffuse alveolar damage. Other considerations include infection and severe hypersensitivity type reaction. 2. Endotracheal tube, nasogastric tube and left central line in satisfactory position. Christopher Lagos MD Head CT 01/02/17 0000 Signed Impressions: Service Date/Time: Monday, January 02, 2017 22:08 - CONCLUSION: Normal examination for a patient of this age. No significant change has occurred. Christopher Lagos MD Lower Extremity Ultrasound 01/01/17 0000 Signed Impressions: Service Date/Time: Sunday, January 01, 2017 13:26 - CONCLUSION: Normal examination. Pk Ricks MD Lower Extremity MRI 01/01/17 0000 Signed Impressions: Service Date/Time: Sunday, January 01, 2017 20:03 - CONCLUSION: Subcutaneous soft tissue edema distal leg. No evidence of osteomyelitis of the tibia or fibula. Issa Christiansen MD Foot X-Ray 01/01/17 0000 Signed Impressions: Service Date/Time: Sunday, January 01, 2017 04:49 - CONCLUSION: No acute abnormality. Prior left toe amputation. Issa Wills Jr., MD Foot MRI 01/01/17 0000 Signed Impressions: Service Date/Time: Sunday, January 01, 2017 20:03 - CONCLUSION: 1. Prominent subcutaneous soft tissue edema about the foot and ankle. 2. Abnormal signal in the distal metatarsal head of the 4th digit, characterized by T1 and T2 prolongation. Differential considerations include healing fracture and osteomyelitis. 3. Probable Aburto's neuroma in the interspace between the distal 2nd and 3rd metatarsal bones. Issa Christiansen MD Abdomen/Pelvis CT 12/31/161938 Signed Impressions: Service Date/Time: Saturday, December 31, 2016 22:46 - CONCLUSION: 1. No acute abnormality to explain the patient's pain. 2. Colonic diverticulosis. No acute inflammation. 3. Suspected small calcified gallstone. The gallbladder is nondilated. 4. 4.2 cm left adrenal gland adenoma. Issa Wills Jr., MD Abdomen X-Ray 12/31/16 0000 Signed Impressions: Service Date/Time: Saturday, December 31, 2016 19:25 - CONCLUSION: Unremarkable study except for stool. KMarlo Stephens MD Objective Remarks GENERAL: Middle-aged male, lying in bed, intubated, sedated. critically ill. HEENT: Pupils equal, round, reactive, conjugate. Normocephalic. Atraumatic. Mucous membranes are moist NECK: Obese neck. Unable to assess JVD. 8.[address] CHEST: Decreased air entry bilaterally. Coarse rales throughout all lung aguirre. PRVC/15/500/8/45%. CARDIOVASCULAR: Normal rate, regular rhythm. No appreciable murmurs. ABDOMEN: Obese, soft, nontender, nondistended. No guarding. MUSCULOSKELETAL: 1+ peripheral edema. Distal pulses 2+. There is a small area on his left heel with a nonhealing ulcer. NEUROLOGICAL: RASS -3. Does not follow commands. Purposeful. withdraws x 4 A/P Assessment and Plan Assessment: This is a 56-year-old male with diabetes, left foot nonhealing wound , alcohol dependence, who presents now with acute hypoxic respiratory failure. Now with ARDS. continue broad spectrum ABX. For now remains very critically ill with likely ARDS, and renal failure, volume overload, hypoxic respiratory failure. Plan by systems: Neurologic: Metabolic encephalopathy Alcohol withdrawal Agitated delirium Propofol, fentanyl for goal RASS -2. PRN Ativan for breakthrough agitation. DC Propofol --Precedex to facilitate ventilator weaning 01/06 --Clonidine 0.3mg po q8hr. Start scheduled Ativan 1 mg by mouth every 8 hours --continue seroquel 50mg po q8hr --daily sedation vacation. IV thiamine, multivitamin Frequent neuro checks ammonia 20 on 01/02. Respiratory: Acute hypoxic respiratory failure ARDS Aspiration pneumonitis Vent bundle, Head of bed at 30 Wean FiO2 for goal SPO2 greater than 90% Low tidal volume ventilation targeting 6 kg ideal body weight PEEP at 8. Start SBT daily, Clinically not ready for extubation. Cardiovascular: Sinus tachycardia- resolving. Septic shock-resolved Off all pressors. Hypertensive ---Bumex 2 mg IV q8h with albumin 25%. reduce Bumex to 1 mg q8 -- clonidine 0.2mg q8hr. Renal: Acute kidney injury Likely prerenal/ATN secondary to sepsis. --Strict I/Os, Chamorro Every hour urine outputs --Creat continues to improve --Bumex as above FEN/GI: Acute protein calorie malnutritionmild Hyperkalemia Hypomagnesemia Metabolic Alkalosis Trend BMP --TF, Glucerna 1.5, goal of 50, nutrition consult. --Protonix 40 mg IV q12 --Diamox 500mg iv q8hr x 3 doses completed Heme/ID: Left foot nonhealing ulceration Septic shock- resolved. --Linder culture 01/10/1701/02 sputum: NGTD --01/02 blood: NGTD --01/02 urine: NGTD. --01/02 heel wound culture enterococcus sensitive to ampicillin --F/u cultures from 01/04 Continue Zosyn, and vancomycin. Azithromycin and micafungin DCd by ID 01/05/17 ID: Dr. Ospina following procalcitonin elevated at 8. Likely bacterial infection. Endocrine: Diabetes Hyperglycemia of critical illness -- SSI, medium scale, every 6 Prophylaxis: GI Prophylaxis Protonix DVT Prophylaxis --SCDs Subcutaneous heparin Lines: 01/02 left IJ triple-lumen catheter Chamorro Dispo: remain in the ICU. He remains critically ill. This patient remains critically ill with one or more organ systems which are or may become a threat to life. I have spent in excess of 33 minutes discontinuously in the care and management of this patient. This time is exclusive of procedures, and includes, but is not limited to, evaluation of the patient, review of the medical record, discussions with family, consultants, nursing staff, or respiratory therapy, and documentation in the medical record. Meliza Whittington MD Jan 10, 2017 13:52
[2017-01-10] MEDS: LORazepam 1 MG TAB PO SCH ×2 (14:00→21:42)
--- NOTE | 2017-01-10 14:20 | RADRPT ---
EXAM DATE/TIME: 01/10/2017 13:32 [facility] COMPARISON: CHEST SINGLE AP, January 09, 2017, 13:15. INDICATIONS : Pneumonia. MEDICAL HISTORY : Diabetes mellitus type II. Renal insufficiency. Cardiovascular disease. SURGICAL HISTORY : None. ENCOUNTER: Subsequent ACUITY: 2 weeks PAIN SCORE: Non-responsive. LOCATION: Bilateral chest FINDINGS: Slight improvement in lung aeration is noted. Patchy airspace disease remains evident bilaterally pee ecially within the left base. Cardiomediastinal structures are stable. Endotracheal tube and nasogastric tube are in stable position. Left central line has been removed. CONCLUSION: Improving lung aeration. Persistent patchy bilateral airspace disease. Interval removal of left central venous catheter. Niels Cassidy MD on January 10, 2017 at 14:17 Board Certified Radiologist. This report was verified electronically.
[2017-01-10] MEDS: PANTOPRAZOLE SODIUM 40 MG VIAL IV PUSH SCH (21:41)
[2017-01-11] VITALS (19 sets, daily range): BP systolic 146–157; BP diastolic 78–87; PULSE 75–87; RESP 20–26; TEMP 98.4–100.8; O2SAT 93–99
[2017-01-11] MEDS: BUMETANIDE INJ 1 MG/4 ML VIAL IV PUSH SCH ×3 (00:33→21:41)
[2017-01-11] MEDS: DEXMEDETOMIDINE INJ 1,000 MCG in SODIUM CHLOR 0.9% 250 ML INJ 240 ML IV SCH ×4 (01:23→19:29)
[2017-01-11] MEDS: INSULIN NovoLIN REGULAR SUPPLEMENTAL SCALE SQ SCH ×4 (06:00→18:00)
[2017-01-11 06:18] LABS: AUTOMATED NEUTROPHIL # 8.3 TH/MM3 (1.8-7.7); BASOPHIL # 0.1 TH/MM3 (0-0.2); BASOPHIL % 1.1 % (0.0-2.0); EOSINOPHIL # 0.9 TH/MM3 (0-0.4); EOSINOPHIL % 6.7 % (0.0-4.0); HEMATOCRIT 33.9 % (39.0-51.0); HEMO FLAGS DIFF FINAL; LYMPHOCYTE # 2.6 TH/MM3 (1.0-4.8); MEAN CELL VOLUME 97.7 FL (80.0-100.0); MEAN CORPUSCULAR HEMOGLOBIN 33.5 PG (27.0-34.0); MEAN CORPUSCULAR HGB CONC 34.3 % (32.0-36.0); MONO % 9.1 % (0.0-8.0); NEUT % 63.1 % (16.0-70.0); PLATELET COUNT 714 TH/MM3 (150-450); RED BLOOD COUNT 3.47 MIL/MM3 (4.50-5.90); RED CELL DISTRIBUTION WIDTH 13.7 % (11.6-17.2); WHITE BLOOD COUNT 13.1 TH/MM3 (4.0-11.0)
[2017-01-11] MEDS: QUEtiapine FUMARATE 100 MG TAB PO SCH ×3 (06:36→21:43)
[2017-01-11] MEDS: cloNIDine HCL 0.3 MG TAB PO SCH ×3 (06:36→21:43)
[2017-01-11] MEDS: LORazepam 1 MG TAB PO SCH ×3 (06:36→21:43)
[2017-01-11] MEDS: HEPARIN SODIUM - SQ 10,000 UNITS/ML VIAL SQ SCH ×3 (06:36→21:43)
[2017-01-11] MEDS: CHLORHEXIDINE 0.12% (ORAL KIT) 15 ML CUP MT SCH ×2 (08:00→21:42)
[2017-01-11] MEDS: THIAMINE HCL 100 MG TAB PO SCH (09:00)
[2017-01-11] MEDS: COLLAGENASE OINT 30 GM TUBE TOPICAL SCH (09:00)
[2017-01-11] MEDS: SODIUM CHLORIDE 0.9% FLUSH 10 ML FLUSH IV FLUSH SCH ×2 (09:00→21:42)
[2017-01-11] MEDS: POTASSIUM CHLORIDE 20 MEQ PWD PACKET NG SCH ×2 (09:00→21:00)
[2017-01-11] MEDS: SENNOSIDES SYRUP 8.8 MG/5 ML CUP PO SCH (09:07)
[2017-01-11] MEDS: DOCUSATE SODIUM 100 MG/10 ML UDC PO SCH ×2 (09:07→21:00)
[2017-01-11] MEDS: MULTIVITAMIN TAB PO SCH (09:07)
[2017-01-11] MEDS: fentaNYL DRIP 250 ML IV SCH (10:10)
--- NOTE | 2017-01-11 10:22 | HHI.NPPN ---
Subjective History of Present Illness 56 year old with ARF sepsis left heel ulcer Additional Remarks Patient remains intubated Review of Systems General Constitutional: Fatigue Objective Data Data 01/10/17 01/11/17 19:00 07:00 Intake Total 1359 ml 1798 ml Output Total 1500 ml 2550 ml Balance -141 ml -752 ml IV Total 612 ml 899 ml Tube Feeding 717 ml 809 ml Other 30 ml 90 ml Output Urine Total 1500 ml 2550 ml # Bowel Movements 0 1 Vital Signs Date Time Temp Pulse Resp B/P Pulse Ox O2 Delivery O2 Flow Rate FiO2 01/11/17 08:53 93 35 01/11/17 06:00 79 01/11/17 04:06 94 35 01/11/17 04:00 82 01/11/17 04:00 45 01/11/17 04:00 98.4 79 22 155/87 95 01/11/17 02:00 82 01/11/17 00:14 99 35 01/11/17 00:00 98.6 78 20 146/79 94 01/11/17 00:00 45 01/11/17 00:00 78 01/10/17 22:00 92 01/10/17 20:50 93 35 01/10/17 20:00 98.2 74 18 121/58 91 01/10/17 20:00 74 01/10/17 20:00 45 01/10/17 17:02 94 35 01/10/17 16:00 45 01/10/17 16:00 80 01/10/17 13:45 45 01/10/17 12:00 84 01/10/17 12:00 45 01/10/17 11:39 95 45 01/10/17 11:00 102.0 98 18 150/84 95 -: 01/11/17 0534 01/10/17 0355 Microbiology 01/10/17 Aerobic Blood Culture, Received Pending 01/10/17 Anaerobic Blood Culture, Received Pending 01/10/17 Aerobic Blood Culture, Received Pending 01/10/17 Anaerobic Blood Culture, Received Pending Physical Exam General Appearance: Well Developed Neck Neck Exam: Neck Supple Pulmonary Resp Exam: Clear Bilaterally Cardiology CV Exam: Regular, Normal Sinus Rhythm Gastrointestinal/Abdomen GI Exam: Soft, Non-Tender Assessment/Plan Problem List: (1) Acute renal failure Plan: BIMAL with ATN Creatinine pending with increasing UOP Good response to bumex 1mg IV q 8 K replace as on diuretic last cr 1.8 UOP 4.05 L CHF Echocardiogram for LV EF 55-60% Diastolic dysfunction On vancomycin and zosyn per ID Caution with vancomycin - continue to closely monitor levels (2) Sepsis Plan: Patient is on Vanco/Zosyn - left heel ulcer showing a growth of group D enterococcus Continue to follow with ID (3) DM (diabetes mellitus) Plan: Follow blood glucose (4) Rhabdomyolysis Plan: resolved (5) Bladder outlet obstruction Plan: Chamorro catheter is in place (6) Metabolic acidosis Plan: resolved Problem Qualifiers (1) Acute renal failure: Qualified Code: N17.0 - Acute renal failure with tubular necrosis (2) Sepsis: Qualified Code: A41.9 - Sepsis, due to unspecified organism (3) Rhabdomyolysis: Qualified Code: M62.82 - Non-traumatic rhabdomyolysis Nikita Guevara MD Jan 11, 2017 10:22
[2017-01-11 11:58] LABS: BICARBONATE 27.2 MEQ/L (21.0-32.0); POTASSIUM 4.1 MEQ/L (3.5-5.1)
--- NOTE | 2017-01-11 13:52 | HHI.IDPN ---
Subjective Subjective Remarks ID [email or web address] for . is a 56 y/o CM who originally came into the emergency department with his left foot wound. He was admitted for IV antibiotics and cellulitis, possible osteomyelitis of the foot. He was seen by Dr. Ospina with infectious disease who felt that this was likely chronic osteo and not acute. Patient became acutely delirious on the floor and a rapid response was called because the patient was unresponsive. He was emergently transferred to the ICU and intubated. He had a chest x-ray showing bilateral pulmonary infiltrates in all lobes, more suggestive of ARDS. Patient remains in the ICU and was intubated and on vasopressors. CXR with b/l infiltrates ? ARDS. On Zosyn IV and Micafungin IV, vanco IV Overnight events reviewed. RN reports temp of 102 F. No further fevers. Chest x-ray shows worsening improved infiltrates. PEEP reduced. Secretions white, thin, minimal. Fever trending down Sedated on vent. No diarrhea Tolerating tube feeds Secretions moderate beige color. UO ok. Antibiotics None Lines Line sites ok. Past Medical History BM, ETOHism tobaccoism Allergies: Coded Allergies: Toradol (Verified Allergy, Intermediate, Headache, 12/31/16) Objective . Vital Signs Date Time Temp Pulse Resp B/P Pulse Ox O2 Delivery O2 Flow Rate FiO2 01/11/17 13:48 95 35 01/11/17 12:00 35 01/11/17 11:00 45 01/11/17 08:53 93 35 01/11/17 06:00 79 01/11/17 04:06 94 35 01/11/17 04:00 82 01/11/17 04:00 45 01/11/17 04:00 98.4 79 22 155/87 95 01/11/17 02:00 82 01/11/17 00:14 99 35 01/11/17 00:00 98.6 78 20 146/79 94 01/11/17 00:00 45 01/11/17 00:00 78 01/10/17 22:00 92 01/10/17 20:50 93 35 01/10/17 20:00 98.2 74 18 121/58 91 01/10/17 20:00 74 01/10/17 20:00 45 01/10/17 17:02 94 35 01/10/17 16:00 45 01/10/17 16:00 80 01/10/17 01/10/17 01/11/17 15:00 23:00 07:00 Intake Total 2618 ml 539 ml Output Total 2900 ml 1150 ml Balance -282 ml -611 ml IV Total 1276 ml 235 ml Tube Feeding 1282 ml 244 ml Other 60 ml 60 ml Output Urine Total 2900 ml 1150 ml # Bowel Movements 0 1 . Laboratory Tests Test 01/10/17 01/11/17 03:55 05:34 White Blood Count 11.5 TH/MM3 13.1 TH/MM3 Red Blood Count 3.41 MIL/MM3 3.47 MIL/MM3 Hemoglobin 11.6 GM/DL 11.6 GM/DL Hematocrit 33.5 % 33.9 % Mean Corpuscular Volume 98.3 FL 97.7 FL Mean Corpuscular Hemoglobin 34.0 PG 33.5 PG Mean Corpuscular Hemoglobin 34.6 % 34.3 % Concent Red Cell Distribution Width 13.9 % 13.7 % Platelet Count 647 TH/MM3 714 TH/MM3 Mean Platelet Volume 9.0 FL 9.0 FL Neutrophils (%) (Auto) 58.8 % 63.1 % Lymphocytes (%) (Auto) 21.7 % 20.0 % Monocytes (%) (Auto) 8.5 % 9.1 % Eosinophils (%) (Auto) 9.7 % 6.7 % Basophils (%) (Auto) 1.3 % 1.1 % Neutrophils # (Auto) 6.7 TH/MM3 8.3 TH/MM3 Lymphocytes # (Auto) 2.5 TH/MM3 2.6 TH/MM3 Monocytes # (Auto) 1.0 TH/MM3 1.2 TH/MM3 Eosinophils # (Auto) 1.1 TH/MM3 0.9 TH/MM3 Basophils # (Auto) 0.1 TH/MM3 0.1 TH/MM3 CBC Comment AUTO DIFF DIFF FINAL Differential Total Cells 100 Counted Neutrophils % (Manual) 52 % Band Neutrophils % 4 % Lymphocytes % 27 % Monocytes % 5 % Eosinophils % 9 % Basophils % 1 % Neutrophils # (Manual) 6.6 TH/MM3 Myelocytes 1 % Differential Comment FINAL DIFF MANUAL Plasma Cells 1 % Platelet Estimate HIGH Platelet Morphology Comment NORMAL [place] Bodies PRESENT Laboratory Tests Test 01/10/17 01/10/17 01/11/17 03:55 13:30 10:57 Sodium Level 144 MEQ/L 143 MEQ/L Potassium Level 3.5 MEQ/L 4.1 MEQ/L Chloride Level 105 MEQ/L 107 MEQ/L Carbon Dioxide Level 29.6 MEQ/L 27.2 MEQ/L Anion Gap 9 MEQ/L 9 MEQ/L Blood Urea Nitrogen 42 MG/DL 54 MG/DL Creatinine 1.89 MG/DL 1.90 MG/DL Estimat Glomerular Filtration 37 ML/MIN 37 ML/MIN Rate Random Glucose 264 MG/DL 386 MG/DL Calcium Level 9.1 MG/DL 9.4 MG/DL Phosphorus Level 4.6 MG/DL Magnesium Level 2.3 MG/DL Albumin 3.0 GM/DL Procalcitonin 0.38 ng/mL Microbiology Date/Time Procedure Status Source Growth 01/10/17 13:30 Aerobic Blood Culture - Preliminary Resulted Blood Peripheral NO GROWTH IN 1 DAY 01/10/17 13:30 Anaerobic Blood Culture - Preliminary Resulted Blood Peripheral NO GROWTH IN 1 DAY 01/10/17 20:20 Aerobic Blood Culture - Preliminary Resulted Blood Peripheral NO GROWTH IN 1 DAY 01/10/17 20:20 Anaerobic Blood Culture - Preliminary Resulted Blood Peripheral NO GROWTH IN 1 DAY Imaging Last Impressions Chest X-Ray 01/09/17 0000 Signed Impressions: Service Date/Time: Monday, January 09, 2017 13:15 - CONCLUSION: Improved aeration. Syl Sánchez MD Chest CT 01/02/17 1645 Signed Impressions: Service Date/Time: Monday, January 02, 2017 22:10 - CONCLUSION: 1. Acute development of bilateral airspace disease as above with some peripheral sparing , especially at the bases. Findings nonspecific. Patient may be developing ARDS/diffuse alveolar damage. Other considerations include infection and severe hypersensitivity type reaction. 2. Endotracheal tube, nasogastric tube and left central line in satisfactory position. Christopher Lagos MD Head CT 01/02/17 0000 Signed Impressions: Service Date/Time: Monday, January 02, 2017 22:08 - CONCLUSION: Normal examination for a patient of this age. No significant change has occurred. Christopher Lagos MD Lower Extremity Ultrasound 01/01/17 0000 Signed Impressions: Service Date/Time: Sunday, January 01, 2017 13:26 - CONCLUSION: Normal examination. Pk Ricks MD Lower Extremity MRI 01/01/17 Signed Impressions: Service Date/Time: Sunday, January 01, 2017 20:03 - CONCLUSION: Subcutaneous soft tissue edema distal leg. No evidence of osteomyelitis of the tibia or fibula. Issa Christiansen MD Foot X-Ray 01/01/17 Signed Impressions: Service Date/Time: Sunday, January 01, 2017 04:49 - CONCLUSION: No acute abnormality. Prior left toe amputation. Issa Wills Jr., MD Foot MRI 01/01/17 Signed Impressions: Service Date/Time: Sunday, January 01, 2017 20:03 - CONCLUSION: 1. Prominent subcutaneous soft tissue edema about the foot and ankle. 2. Abnormal signal in the distal metatarsal head of the 4th digit, characterized by T1 and T2 prolongation. Differential considerations include healing fracture and osteomyelitis. 3. Probable Aburto's neuroma in the interspace between the distal 2nd and 3rd metatarsal bones. Issa Christiansen MD Abdomen/Pelvis CT 12/31/161938 Signed Impressions: Service Date/Time: Saturday, December 31, 2016 22:46 - CONCLUSION: 1. No acute abnormality to explain the patient's pain. 2. Colonic diverticulosis. No acute inflammation. 3. Suspected small calcified gallstone. The gallbladder is nondilated. 4. 4.2 cm left adrenal gland adenoma. Issa Wills Jr., MD Abdomen X-Ray 12/31/16 Signed Impressions: Service Date/Time: Saturday, December 31, 2016 19:25 - CONCLUSION: Unremarkable study except for stool. Lela Stephens MD Physical Exam CONSTITUTIONAL/GENERAL: This is an obese patient, in no apparent distress. sedated int'd on [facility] vent TUBES/LINES/DRAINS: SKIN: No jaundice, rashes, or lesions. HEAD: Atraumatic. Normocephalic. EYES: Pupils equal and round and reactive. Extraocular motions intact. No scleral icterus. No injection or drainage. Fundi not examined. ENT: Oral mucosae moist, dentition poor orally int'd NECK: Trachea midline. Supple, nontender. CARDIOVASCULAR: Regular rate and rhythm without murmurs, gallops, or rubs. No JVD. Peripheral pulses symmetric. RESPIRATORY/CHEST: Symmetric, unlabored respirations. Breath sounds equal bilaterally. GASTROINTESTINAL: Abdomen soft, non-tender, nondistended. Bowel sounds present. GENITOURINARY: Without palpable bladder distension. Chamorro catheter in place with slightly cloudy yellow urine MUSCULOSKELETAL: Extremities without clubbing, cyanosis, or edema. NEUROLOGICAL: sedated unresponsive PSYCHIATRIC: unable to assess Foot no s.o active infection such as erythema, warmth. Assessment & Plan Remarks Septic shock likely secondary to aspiration pneumonia, resolved. Sepsis possible. New or ongoing. Aspiration PNA likely related to alcoholism. Now with ? HCAP. Has no CLs. Obstructive uropathy and ARF Acute renal failurelikely post obstructive Rhabdomyolysis Acute urinary retention Left heel chronic diabetic ulcer, no e/o osteo of L heel sp b/s debridement - growing enterococccus along with skin ricky from surface clx ; doubt clin significance - this is likely not the source of pt possible sepsis Hypoxia with new infiltrates ? ARDS ? 2/2 sepsis vs aspiration pneumonitis Persistent low grade fever Recs Normal Procalcitonin (trend observed). Observe off antibiotics as currently clinically stable. If any change in clinical condition overnight ok to start Zosyn IV, Vanco IV x 1 dose and Micafungin IV x 1 dose (as pt was on BSA and had CLs) Follow cultures. Follow clinically. covering this weekend. to resume care on Saturday. Guillermina Jain MD Jan 11, 2017 13:52
--- NOTE | 2017-01-11 15:22 | HHI.CCPN ---
Subjective Remarks/Hospital Course Hospital Course: This is a 56-year-old male who originally came into the emergency department with his left foot wound. He was admitted for IV antibiotics and cellulitis, possible osteomyelitis of the foot. He was seen by Dr. Ospina with infectious disease who felt that this was likely chronic osteo and not acute. Overnight last night he became acutely delirious, and has a very strong alcohol history, and was thought most likely to be an alcohol withdrawal. He was given Ativan. This morning, he was much more somnolent. This afternoon a rapid response was called because the patient was unresponsive. When I arrived, the patient had a oxygen saturation of 30% with a good plethysmograph waveform. He was emergently transferred to the ICU and intubated. He had a chest x-ray showing bilateral pulmonary protrudes in all lobes, more suggestive of ARDS. The patient was tachycardic, febrile, very septic appearing. He is toxic. Unfortunately, the patient is unresponsive and cannot provide any additional history. Subjective: 01/03: remains intubated, sedated. persistent bilateral infiltrates. likely ARDS. remains on vasopressors. 01/04: Continued to spike fever 101.3 Tmax. Chest x-ray shows continued bilateral infiltrates/ARDS. Remains on Levophed at 4 mics per minute. Currently on Zosyn and micafungin, vancomycin added for additional gram- positive coverage 01/05: Continues to be hypoxemic currently on FiO2 65%. Chest x-ray shows worsening bilateral pulmonary edema. Fever trending down currently on vancomycin Zosyn and micafungin. Azithromycin added for atypical coverage. I will also increase PEEP to 12, stop IV fluids and give 2 mg IV Bumex 01/06: FiO2 down to 45%. PEEP remains at 12. 2.8 L urine output creatinine slightly improved to 1.8. Received 2 mg Bumex yesterday, nephrology has started scheduled Bumex 1 mg every 12 today. Chest x-ray shows persistent ARDS/ pulmonary edema 01/07: net euvolemic overnight. clinically appears volume overloaded still. failed CPAP for tachypnea yesterday. afebrile. oxygenation stable. 01/08: net euvolemic overnight again. still volume overloaded. Cr slightly elevated. metabolic alkalosis persists. 01/09: FiO2 down to 45%, achieving negative fluid balance. Urine output more than 4 L. Creatinine remained stable 01/10:: Patient remains on 45% oxygen and PEEP of 8, heavily sedated with propofol fentanyl and Precedex. Warren fever of 102. Hemodynamically stable 01/11: Maintaining oxygenation on the PEEP of 8 and FiO2 35%. Otherwise remains sedated with Precedex and fentanyl. Highest temperature was yesterday before noon 102 no fever now. WBC count is slightly improved. Patient is being observed off antibiotics today Objective Vital Signs Date Time Temp Pulse Resp B/P Pulse Ox O2 Delivery O2 Flow Rate FiO2 01/11/17 14:00 76 01/11/17 13:48 95 35 01/11/17 04:00 98.4 22 155/87 Intake and Output 01/10/17 01/10/17 01/11/17 08:00 16:00 00:00 Intake Total 988 ml 1359 ml 1259 ml Output Total 1600 ml 1500 ml 1400 ml Balance -612 ml -141 ml -141 ml Result Diagram: 01/11/17 0534 01/11/17 1057 Imaging Last Impressions Chest X-Ray 01/03/17 0600 Signed Impressions: Service Date/Time: December 04:02 - CONCLUSION: Unchanged bilateral pulmonary infiltrates. Issa Wills Jr., MD Chest CT 01/02/17 1645 Signed Impressions: Service Date/Time: Monday, January 02, 2017 22:10 - CONCLUSION: 1. Acute development of bilateral airspace disease as above with some peripheral sparing , especially at the bases. Findings nonspecific. Patient may be developing ARDS/diffuse alveolar damage. Other considerations include infection and severe hypersensitivity type reaction. 2. Endotracheal tube, nasogastric tube and left central line in satisfactory position. Christopher Lagos MD Head CT 01/02/17 0000 Signed Impressions: Service Date/Time: Monday, January 02, 2017 22:08 - CONCLUSION: Normal examination for a patient of this age. No significant change has occurred. Christopher Lagos MD Lower Extremity Ultrasound 01/01/17 Signed Impressions: Service Date/Time: Sunday, January 01, 2017 13:26 - CONCLUSION: Normal examination. Pk Ricks MD Lower Extremity MRI 01/01/17 Signed Impressions: Service Date/Time: Sunday, January 01, 2017 20:03 - CONCLUSION: Subcutaneous soft tissue edema distal leg. No evidence of osteomyelitis of the tibia or fibula. Issa Christiansen MD Foot X-Ray 01/01/17 0000 Signed Impressions: Service Date/Time: Sunday, January 01, 2017 04:49 - CONCLUSION: No acute abnormality. Prior left toe amputation. Issa Wills Jr., MD Foot MRI 01/01/17 0000 Signed Impressions: Service Date/Time: Sunday, January 01, 2017 20:03 - CONCLUSION: 1. Prominent subcutaneous soft tissue edema about the foot and ankle. 2. Abnormal signal in the distal metatarsal head of the 4th digit, characterized by T1 and T2 prolongation. Differential considerations include healing fracture and osteomyelitis. 3. Probable Aburto's neuroma in the interspace between the distal 2nd and 3rd metatarsal bones. Issa Christiansen MD Abdomen/Pelvis CT 12/31/161938 Signed Impressions: Service Date/Time: Saturday, December 31, 2016 22:46 - CONCLUSION: 1. No acute abnormality to explain the patient's pain. 2. Colonic diverticulosis. No acute inflammation. 3. Suspected small calcified gallstone. The gallbladder is nondilated. 4. 4.2 cm left adrenal gland adenoma. Issa Wills Jr., MD Abdomen X-Ray 12/31/16 0000 Signed Impressions: Service Date/Time: Saturday, December 31, 2016 19:25 - CONCLUSION: Unremarkable study except for stool. Lela Stephens MD Objective Remarks GENERAL: Middle-aged male, lying in bed, intubated, sedated. critically ill. HEENT: Pupils equal, round, reactive, conjugate. Normocephalic. Atraumatic. Mucous membranes are moist NECK: Obese neck. Unable to assess JVD. 8.[address] CHEST: Decreased air entry bilaterally. Coarse rales throughout all lung aguirre. PRVC/15/500/8/35%. CARDIOVASCULAR: Normal rate, regular rhythm. No appreciable murmurs. ABDOMEN: Obese, soft, nontender, nondistended. No guarding. MUSCULOSKELETAL: 1+ peripheral edema. Distal pulses 2+. There is a small area on his left heel with a nonhealing ulcer. NEUROLOGICAL: RASS -3. Does not follow commands. Purposeful. withdraws x 4 A/P Assessment and Plan Assessment: This is a 56-year-old male with diabetes, left foot nonhealing wound , alcohol dependence, who presents now with acute hypoxic respiratory failure. Now with ARDS. continue broad spectrum ABX. For now remains very critically ill with likely ARDS, and renal failure, volume overload, hypoxic respiratory failure. Plan by systems: Neurologic: Metabolic encephalopathy Alcohol withdrawal Agitated delirium Propofol, fentanyl for goal RASS -2. PRN Ativan for breakthrough agitation. DC Propofol --Precedex to facilitate ventilator weaning --Clonidine 0.3mg po q8hr. Start scheduled Ativan 1 mg by mouth every 8 hours --continue Seroquel 50mg po q8hr --Daily sedation vacation. IV thiamine, multivitamin Frequent neuro checks ammonia 20 on 01/02. Respiratory: Acute hypoxic respiratory failure ARDS Aspiration pneumonitis Vent bundle, Head of bed at 30 Wean FiO2 for goal SPO2 greater than 90% Low tidal volume ventilation targeting 6 kg ideal body weight PEEP at 8. Tolerated SBT for 3 hours yesterday. SBT today with parameters. Extubation only when mental status permits Cardiovascular: Sinus tachycardia- resolving. Septic shock-resolved Off all pressors. Hypertensive ---Bumex 1 mg IV q8h with albumin 25%. reduce Bumex to 1 mg q12 -- clonidine 0.2mg q8hr- increase tp 0.3 q8 Renal: Acute kidney injury Likely prerenal/ATN secondary to sepsis. --Strict I/Os, Chamorro Every hour urine outputs --Creat continues to improve --Bumex as above FEN/GI: Acute protein calorie malnutritionmild Hyperkalemia Hypomagnesemia Metabolic Alkalosis Trend BMP --TF, Glucerna 1.5, goal of 50, nutrition consult. --Protonix 40 mg IV q12 --Diamox 500mg iv q8hr x 3 doses completed Heme/ID: Left foot nonhealing ulceration Septic shock- resolved. --Linder culture 01/10/1701/02 sputum: NGTD --01/02 blood: NGTD --01/02 urine: NGTD. --01/02 heel wound culture enterococcus sensitive to ampicillin --F/u cultures from 01/04 ID observing off all ABX ID: Dr. Ospina following procalcitonin elevated at 8. Likely bacterial infection. Endocrine: Diabetes Hyperglycemia of critical illness -- SSI, medium scale, every 6 Prophylaxis: GI Prophylaxis Protonix DVT Prophylaxis --SCDs Subcutaneous heparin Dispo: remain in the ICU. He remains critically ill. This patient remains critically ill with one or more organ systems which are or may become a threat to life. I have spent in excess of 33 minutes discontinuously in the care and management of this patient. This time is exclusive of procedures, and includes, but is not limited to, evaluation of the patient, review of the medical record, discussions with family, consultants, nursing staff, or respiratory therapy, and documentation in the medical record. Meliza Whittington MD Jan 11, 2017 15:22
[2017-01-11] MEDS: PANTOPRAZOLE SODIUM 40 MG VIAL IV PUSH SCH (21:41)
[2017-01-12] VITALS (19 sets, daily range): BP systolic 140–174; BP diastolic 72–86; PULSE 69–86; RESP 9–16; TEMP 98.5–99.5; O2SAT 96–98
[2017-01-12] MEDS: LORazepam 2 MG/ML VIAL IV PRN (00:02)
[2017-01-12] MEDS: fentaNYL DRIP 250 ML IV SCH ×2 (02:52→16:58)
[2017-01-12] MEDS: DEXMEDETOMIDINE INJ 1,000 MCG in SODIUM CHLOR 0.9% 250 ML INJ 240 ML IV SCH ×3 (03:45→19:40)
[2017-01-12] MEDS: INSULIN NovoLIN REGULAR SUPPLEMENTAL SCALE SQ SCH ×4 (06:00→17:27)
[2017-01-12] MEDS: cloNIDine HCL 0.3 MG TAB PO SCH ×3 (06:25→23:06)
[2017-01-12] MEDS: LORazepam 1 MG TAB PO SCH ×3 (06:25→23:06)
[2017-01-12] MEDS: HEPARIN SODIUM - SQ 10,000 UNITS/ML VIAL SQ SCH ×3 (06:25→23:06)
[2017-01-12] MEDS: QUEtiapine FUMARATE 100 MG TAB PO SCH ×3 (06:25→23:06)
[2017-01-12] MEDS: BUMETANIDE INJ 1 MG/4 ML VIAL IV PUSH SCH (08:00)
[2017-01-12] MEDS: CHLORHEXIDINE 0.12% (ORAL KIT) 15 ML CUP MT SCH ×2 (08:00→19:39)
[2017-01-12] MEDS: SODIUM CHLORIDE 0.9% FLUSH 10 ML FLUSH IV FLUSH SCH ×2 (08:27→19:39)
[2017-01-12] MEDS: POTASSIUM CHLORIDE 20 MEQ PWD PACKET NG SCH ×2 (08:27→19:39)
[2017-01-12] MEDS: MULTIVITAMIN TAB PO SCH (08:28)
[2017-01-12] MEDS: THIAMINE HCL 100 MG TAB PO SCH (08:28)
[2017-01-12] MEDS: ASPIRIN 81 MG CHEW TAB PO SCH (08:28)
[2017-01-12] MEDS: DOCUSATE SODIUM 100 MG/10 ML UDC PO SCH ×2 (08:28→19:39)
[2017-01-12] MEDS: SENNOSIDES SYRUP 8.8 MG/5 ML CUP PO SCH (08:28)
[2017-01-12] MEDS: COLLAGENASE OINT 30 GM TUBE TOPICAL SCH (09:00)
[2017-01-12 10:15] LABS: AUTOMATED NEUTROPHIL # 7.3 TH/MM3 (1.8-7.7); BASOPHIL # 0.2 TH/MM3 (0-0.2); BASOPHIL % 1.3 % (0.0-2.0); EOSINOPHIL # 0.8 TH/MM3 (0-0.4); EOSINOPHIL % 6.1 % (0.0-4.0); HEMATOCRIT 34.3 % (39.0-51.0); HEMO FLAGS DIFF FINAL; LYMPH % 25.6 % (9.0-44.0); LYMPHOCYTE # 3.3 TH/MM3 (1.0-4.8); MEAN CORPUSCULAR HEMOGLOBIN 33.4 PG (27.0-34.0); MEAN CORPUSCULAR HGB CONC 33.7 % (32.0-36.0); MONO % 10.7 % (0.0-8.0); NEUT % 56.3 % (16.0-70.0); PLATELET COUNT 707 TH/MM3 (150-450); RED BLOOD COUNT 3.46 MIL/MM3 (4.50-5.90); RED CELL DISTRIBUTION WIDTH 13.4 % (11.6-17.2)
[2017-01-12 10:42] LABS: BICARBONATE 28.1 MEQ/L (21.0-32.0); POTASSIUM 4.3 MEQ/L (3.5-5.1)
--- NOTE | 2017-01-12 15:09 | HHI.NPPN ---
Subjective History of Present Illness 56 year old with ARF sepsis left heel ulcer Additional Remarks Patient remains intubated Review of Systems General Constitutional: Fatigue Objective Data Data 01/11/17 01/12/17 19:00 07:00 Intake Total 1405 ml 1361 ml Output Total 1500 ml 1725 ml Balance -95 ml -364 ml Intake Oral 0 ml IV Total 480 ml 614 ml Tube Feeding 575 ml 747 ml Other 350 ml Output Urine Total 1500 ml 1725 ml # Bowel Movements 1 1 Vital Signs Date Time Temp Pulse Resp B/P Pulse Ox O2 Delivery O2 Flow Rate FiO2 01/12/17 12:47 97 40 01/12/17 12:00 98.7 74 15 155/72 97 01/12/17 10:00 70 01/12/17 08:00 69 01/12/17 08:00 98.5 70 9 153/76 97 01/12/17 07:53 98 40 01/12/17 07:53 40 01/12/17 06:00 72 01/12/17 04:30 97 40 01/12/17 04:00 40 01/12/17 04:00 74 01/12/17 04:00 99.0 74 11 140/78 98 01/12/17 02:00 75 01/12/17 01:20 98 40 01/12/17 00:00 86 01/12/17 00:00 99.5 86 16 174/86 97 01/12/17 00:00 40 01/11/17 22:00 86 01/11/17 21:30 96 40 01/11/17 20:00 40 01/11/17 20:00 87 01/11/17 20:00 99.4 87 20 148/78 96 01/11/17 18:00 86 01/11/17 16:31 95 40 01/11/17 16:00 80 01/11/17 16:00 40 01/11/17 16:00 100.8 80 26 152/78 95 -: 01/12/17 0941 01/12/17 0941 Physical Exam General Appearance: Well Developed Neck Neck Exam: Neck Supple Pulmonary Resp Exam: Clear Bilaterally Cardiology CV Exam: Regular, Normal Sinus Rhythm Gastrointestinal/Abdomen GI Exam: Soft, Non-Tender Assessment/Plan Problem List: (1) Acute renal failure Plan: BIMAL with ATN Creatinine pending with increasing UOP Good response to bumex 1mg IV q 12 K replace as on diuretic last cr 1.7 UOP 3.2 L CHF Echocardiogram for LV EF 55-60% Diastolic dysfunction On vancomycin and zosyn per ID Caution with vancomycin - continue to closely monitor levels nephrology to follow PRN bases (2) Sepsis Plan: Patient is on Vanco/Zosyn - left heel ulcer showing a growth of group D enterococcus Continue to follow with ID (3) DM (diabetes mellitus) Plan: Follow blood glucose (4) Rhabdomyolysis Plan: resolved (5) Bladder outlet obstruction Plan: Chamorro catheter is in place (6) Metabolic acidosis Plan: resolved Problem Qualifiers (1) Acute renal failure: Qualified Code: N17.0 - Acute renal failure with tubular necrosis (2) Sepsis: Qualified Code: A41.9 - Sepsis, due to unspecified organism (3) Rhabdomyolysis: Qualified Code: M62.82 - Non-traumatic rhabdomyolysis Nikita Guevara MD Jan 12, 2017 15:09
--- NOTE | 2017-01-12 16:52 | HHI.CCPN ---
Subjective Remarks/Hospital Course This is a 56-year-old male who originally came into the emergency department with his left foot wound. He was admitted for IV antibiotics and cellulitis, possible osteomyelitis of the foot. He was seen by Dr. Ospina with infectious disease who felt that this was likely chronic osteo and not acute. Overnight last night he became acutely delirious, and has a very strong alcohol history, and was thought most likely to be an alcohol withdrawal. He was given Ativan. This morning, he was much more somnolent. This afternoon a rapid response was called because the patient was unresponsive. When I arrived, the patient had a oxygen saturation of 30% with a good plethysmograph waveform. He was emergently transferred to the ICU and intubated. He had a chest x-ray showing bilateral pulmonary protrudes in all lobes, more suggestive of ARDS. The patient was tachycardic, febrile, very septic appearing. He is toxic. Unfortunately, the patient is unresponsive and cannot provide any additional history. 01/03: remains intubated, sedated. persistent bilateral infiltrates. likely ARDS. remains on vasopressors. 01/04: Continued to spike fever 101.3 Tmax. Chest x-ray shows continued bilateral infiltrates/ARDS. Remains on Levophed at 4 mics per minute. Currently on Zosyn and micafungin, vancomycin added for additional gram- positive coverage 01/05: Continues to be hypoxemic currently on FiO2 65%. Chest x-ray shows worsening bilateral pulmonary edema. Fever trending down currently on vancomycin Zosyn and micafungin. Azithromycin added for atypical coverage. I will also increase PEEP to 12, stop IV fluids and give 2 mg IV Bumex 01/06: FiO2 down to 45%. PEEP remains at 12. 2.8 L urine output creatinine slightly improved to 1.8. Received 2 mg Bumex yesterday, nephrology has started scheduled Bumex 1 mg every 12 today. Chest x-ray shows persistent ARDS/ pulmonary edema 01/07: net euvolemic overnight. clinically appears volume overloaded still. failed CPAP for tachypnea yesterday. afebrile. oxygenation stable. 01/08: net euvolemic overnight again. still volume overloaded. Cr slightly elevated. metabolic alkalosis persists. 01/09: FiO2 down to 45%, achieving negative fluid balance. Urine output more than 4 L. Creatinine remained stable 01/10:: Patient remains on 45% oxygen and PEEP of 8, heavily sedated with propofol fentanyl and Precedex. Warren fever of 102. Hemodynamically stable 01/11: Maintaining oxygenation on the PEEP of 8 and FiO2 35%. Otherwise remains sedated with Precedex and fentanyl. Highest temperature was yesterday before noon 102 no fever now. WBC count is slightly improved. Patient is being observed off antibiotics today Subjective: 01/12: Currently on PSV trial with PEEP of 8. Tmax 100.8. Positive BM 2. Objective Vital Signs Date Time Temp Pulse Resp B/P Pulse Ox O2 Delivery O2 Flow Rate FiO2 01/12/17 12:47 97 40 01/12/17 12:00 98.7 74 15 155/72 Intake and Output 01/11/17 01/11/17 01/12/17 08:00 16:00 00:00 Intake Total 539 ml 1405 ml 381 ml Output Total 1150 ml 1500 ml 675 ml Balance -611 ml -95 ml -294 ml Result Diagram: 01/12/17 0941 01/12/17 0941 Other Results Microbiology Date/Time Procedure Status Source Growth 01/10/17 20:20 Aerobic Blood Culture - Preliminary Resulted Blood Peripheral NO GROWTH IN 2 DAYS 01/10/17 20:20 Anaerobic Blood Culture - Preliminary Resulted Blood Peripheral NO GROWTH IN 2 DAYS Imaging Last Impressions Chest X-Ray 01/10/17 0000 Signed Impressions: Service Date/Time: December 13:32 - CONCLUSION: Improving lung aeration. Persistent patchy bilateral airspace disease. Interval removal of left central venous catheter. Niels Cassidy MD Chest CT 01/02/17 1645 Signed Impressions: Service Date/Time: Monday, January 02, 2017 22:10 - CONCLUSION: 1. Acute development of bilateral airspace disease as above with some peripheral sparing , especially at the bases. Findings nonspecific. Patient may be developing ARDS/diffuse alveolar damage. Other considerations include infection and severe hypersensitivity type reaction. 2. Endotracheal tube, nasogastric tube and left central line in satisfactory position. Christopher Lagos MD Head CT 01/02/17 0000 Signed Impressions: Service Date/Time: Monday, January 02, 2017 22:08 - CONCLUSION: Normal examination for a patient of this age. No significant change has occurred. Christopher Lagos MD Lower Extremity Ultrasound 01/01/17 Signed Impressions: Service Date/Time: Sunday, January 01, 2017 13:26 - CONCLUSION: Normal examination. Pk Ricks MD Lower Extremity MRI 01/01/17 Signed Impressions: Service Date/Time: Sunday, January 01, 2017 20:03 - CONCLUSION: Subcutaneous soft tissue edema distal leg. No evidence of osteomyelitis of the tibia or fibula. Issa Christiansen MD Foot X-Ray 01/01/17 Signed Impressions: Service Date/Time: Sunday, January 01, 2017 04:49 - CONCLUSION: No acute abnormality. Prior left toe amputation. Issa Wills Jr., MD Foot MRI 01/01/17 Signed Impressions: Service Date/Time: Sunday, January 01, 2017 20:03 - CONCLUSION: 1. Prominent subcutaneous soft tissue edema about the foot and ankle. 2. Abnormal signal in the distal metatarsal head of the 4th digit, characterized by T1 and T2 prolongation. Differential considerations include healing fracture and osteomyelitis. 3. Probable Aburto's neuroma in the interspace between the distal 2nd and 3rd metatarsal bones. Issa Christiansen MD Abdomen/Pelvis CT 12/31/161938 Signed Impressions: Service Date/Time: Saturday, December 31, 2016 22:46 - CONCLUSION: 1. No acute abnormality to explain the patient's pain. 2. Colonic diverticulosis. No acute inflammation. 3. Suspected small calcified gallstone. The gallbladder is nondilated. 4. 4.2 cm left adrenal gland adenoma. Issa Wills Jr., MD Abdomen X-Ray 12/31/16 Signed Impressions: Service Date/Time: Saturday, December 31, 2016 19:25 - CONCLUSION: Unremarkable study except for stool. Lela Stephens MD Objective Remarks GENERAL: 56-year-old male, lying in bed, intubated, sedated. critically ill. HEENT: NC/1AT. Pupils equal, round, reactive, conjugate about 3 L bilaterally. Mucous membranes are moist and pink NECK: Obese neck. No thyromegaly or lymphadenopathy. 8.[address] CHEST: Diminished breath sounds bilaterally. Few crackles appreciated throughout all lung aguirre. No wheezing. CARDIOVASCULAR: RRR. S1, S2 no S4 without murmur ABDOMEN: Obese, soft, nontender, nondistended. No guarding. Hypoactive bowel sounds appreciated MUSCULOSKELETAL: 1+ peripheral edema. Distal pulses 2+. There is a small area on his left heel with a nonhealing ulcer. NEUROLOGICAL: Arousable on the ventilator. Moves all 4 extremity spontaneously. Does not follow commands. A/P Assessment and Plan Neuro/Psych: Post traumatic stress disorder Metabolic encephalopathy Alcohol withdrawal Agitated delirium Chronic narcotic use Propofol, fentanyl for goal RASS -2. PRN Ativan for breakthrough agitation. DC Propofol --Precedex to facilitate ventilator weaning --Continue scheduled Ativan 1 mg by mouth every 8 hours --continue Seroquel 50mg po q8hr Off morphine sulfate 60 mg twice a day and oxycodone 30 mg twice a day/home medication Off Lyrica screen milligrams by mouth twice a day IV thiamine, multivitamin Check MRI brain/EEG. Negative CT head 01/02 ammonia 20 on 01/02. Respiratory: Acute hypoxic respiratory failure ARDS Aspiration pneumonitis History of COPD Currently on PSV trial Bronchodilator therapy every 6 hours and as needed Vent bundle, Head of bed at 30 Wean FiO2 for goal SPO2 greater than 92% PEEP at 8. Extubation only when mental status permits Cardiovascular: Sinus tachycardia- resolving. Septic shock-resolved Hypertension Grade 2 diastolic dysfunction We'll discontinue Bumex today with appears clinically dry Off lisinopril 5 mill grams by mouth daily/home medication Currently on clonidine 0.3 mg 3 times a day. Echo 01/09 revealed EF 55-60%. No regional wall motion abnormality. Grade 2 diastolic dysfunction. Renal: Acute kidney injury Likely prerenal/ATN secondary to sepsis. --Strict I/Os, [place]amorro Every hour urine outputs --Creat continues to improve --Bumex 1 mg twice a day Nephrology signed off FEN/GI: Acute protein calorie malnutritionmild Trend BMP --TF, Glucerna 1.5, goal of 60, nutrition consult. --Protonix 40 mg IV q24 Scheduled potassium 20 mEq twice a day - Senokot daily for bowel regimen. Heme/ID: Left foot nonhealing ulceration Septic shock- resolved. History of splenectomy -- 01/10/17 blood cultures 2 negative 01/02 sputum: NGTD --01/02 blood: NGTD --01/02 urine: NGTD. --01/02 heel wound culture enterococcus sensitive to ampicillin --F/u cultures from 01/04 ID observing off all ABX ID: Dr. Ospina following Santyl daily for foot ulcer Endocrine: Diabetes Hyperglycemia of critical illness -- SSI, medium scale, every 6 Holding Janumet one tablet twice a day and glyburide 10 mg by mouth twice a day Prophylaxis: GI Prophylaxis Protonix DVT Prophylaxis --SCDs Subcutaneous heparin 5000 units 3 times a day Critical Care: The total critical care time was 35 minutes. Time to perform other separately billable procedures was not included in the critical care time. Cleveland Vera MD Jan 12, 2017 16:52 nursing staff, or respiratory therapy, and documentation in the medical record. Cleveland Vera MD Jan 12, 2017 16:52
[2017-01-12] MEDS: ARTIFICIAL TEARS OPTH SOLN 15 ML BTL EACH EYE SCH (17:00)
[2017-01-12] MEDS: PANTOPRAZOLE SODIUM 40 MG VIAL IV PUSH SCH (19:39)
[2017-01-12] MEDS: RESP: ALBUTEROL 2.5 MG/IPRATROPIUM 0.5 MG NEB (SCH) NEB (20:21)
[2017-01-13] VITALS (15 sets, daily range): BP systolic 124–165; BP diastolic 60–91; PULSE 71–128; RESP 17–23; TEMP 98.2–101.5; O2SAT 94–99
[2017-01-13] MEDS: fentaNYL DRIP 250 ML IV SCH ×2 (00:05→20:01)
[2017-01-13] MEDS: ARTIFICIAL TEARS OPTH SOLN 15 ML BTL EACH EYE SCH ×4 (01:24→20:00)
[2017-01-13] MEDS: DEXMEDETOMIDINE INJ 1,000 MCG in SODIUM CHLOR 0.9% 250 ML INJ 240 ML IV SCH ×3 (01:24→20:44)
[2017-01-13] MEDS: RESP: ALBUTEROL 2.5 MG/IPRATROPIUM 0.5 MG NEB (SCH) NEB ×4 (04:07→19:55)
[2017-01-13] MEDS: LORazepam 1 MG TAB PO SCH ×3 (05:29→20:41)
[2017-01-13] MEDS: QUEtiapine FUMARATE 100 MG TAB PO SCH ×3 (05:29→20:42)
[2017-01-13] MEDS: cloNIDine HCL 0.3 MG TAB PO SCH ×3 (05:29→20:41)
[2017-01-13] MEDS: HEPARIN SODIUM - SQ 10,000 UNITS/ML VIAL SQ SCH ×3 (05:29→20:42)
[2017-01-13] MEDS: INSULIN NovoLIN REGULAR SUPPLEMENTAL SCALE SQ SCH ×5 (05:29→23:59)
[2017-01-13 05:32] LABS: AUTOMATED NEUTROPHIL # 9.6 TH/MM3 (1.8-7.7); BASOPHIL # 0.2 TH/MM3 (0-0.2); EOSINOPHIL # 1.1 TH/MM3 (0-0.4); EOSINOPHIL % 6.6 % (0.0-4.0); HEMATOCRIT 33.5 % (39.0-51.0); HEMO FLAGS DIFF FINAL; LYMPH % 25.2 % (9.0-44.0); LYMPHOCYTE # 4.1 TH/MM3 (1.0-4.8); MEAN CELL VOLUME 98.4 FL (80.0-100.0); MEAN CORPUSCULAR HEMOGLOBIN 33.1 PG (27.0-34.0); MEAN CORPUSCULAR HGB CONC 33.6 % (32.0-36.0); MONO % 8.8 % (0.0-8.0); NEUT % 58.4 % (16.0-70.0); PLATELET COUNT 744 TH/MM3 (150-450); RED CELL DISTRIBUTION WIDTH 13.7 % (11.6-17.2); WHITE BLOOD COUNT 16.4 TH/MM3 (4.0-11.0)
[2017-01-13 05:46] LABS: ANION GAP 7 MEQ/L (5-15); AST (GOT) 9 U/L (15-37); BICARBONATE 27.6 MEQ/L (21.0-32.0); BLOOD UREA NITROGEN 64 MG/DL (7-18); CHLORIDE 110 MEQ/L (98-107); GLOMERULAR FILTRATION RATE 43 ML/MIN (>89); MAGNESIUM 2.6 MG/DL (1.5-2.5); POTASSIUM 4.3 MEQ/L (3.5-5.1); SODIUM (NA) 145 MEQ/L (136-145)
[2017-01-13 05:50] LABS: ALKALINE PHOSPHATASE 88 U/L (45-117); ALT (GPT) 15 U/L (12-78); TOTAL BILIRUBIN ADULT 0.3 MG/DL (0.2-1.0)
--- NOTE | 2017-01-13 06:30 | RADRPT ---
EXAM DATE/TIME: 01/13/2017 03:50 [facility] COMPARISON: CHEST SINGLE AP, January 10, 2017, 13:32. INDICATIONS : Shortness of breath, possible pulmonary disease. MEDICAL HISTORY : Diabetes mellitus type II. Renal insufficiency. Cardiovascular disease. SURGICAL HISTORY : None. ENCOUNTER: Subsequent ACUITY: 2 weeks PAIN SCORE: Non-responsive. LOCATION: Bilateral chest FINDINGS: The cardiac silhouette is enlarged in transverse diameter. Support lines and tubes are in satisfactor y position. There is prominence of the central pulmonary vasculature with indistinct vascular margins compatible with vascular congestion but no evidence of overt failure. The findings are improved when compared with the prior exam. CONCLUSION: 1. Cardiomegaly and findings of vascular congestion without overt failure. The findings are improved when compared with the prior exam. Chris Mejias MD on January 13, 2017 at 6:28 Board Certified Radiologist. This report was verified electronically.
[2017-01-13] MEDS: MULTIVITAMIN TAB PO SCH (08:44)
[2017-01-13] MEDS: DOCUSATE SODIUM 100 MG/10 ML UDC PO SCH ×2 (08:44→20:00)
[2017-01-13] MEDS: SODIUM CHLORIDE 0.9% FLUSH 10 ML FLUSH IV FLUSH SCH ×2 (08:44→20:00)
[2017-01-13] MEDS: POTASSIUM CHLORIDE 20 MEQ PWD PACKET NG SCH ×2 (08:44→20:00)
[2017-01-13] MEDS: SENNOSIDES SYRUP 8.8 MG/5 ML CUP PO SCH (08:44)
[2017-01-13] MEDS: ASPIRIN 81 MG CHEW TAB PO SCH (08:44)
[2017-01-13] MEDS: THIAMINE HCL 100 MG TAB PO SCH (08:44)
[2017-01-13] MEDS: CHLORHEXIDINE 0.12% (ORAL KIT) 15 ML CUP MT SCH ×2 (08:45→20:00)
[2017-01-13] MEDS: COLLAGENASE OINT 30 GM TUBE TOPICAL SCH (08:45)
--- NOTE | 2017-01-13 10:48 | HHI.CCPN ---
Subjective Remarks/Hospital Course This is a 56-year-old male who originally came into the emergency department with his left foot wound. He was admitted for IV antibiotics and cellulitis, possible osteomyelitis of the foot. He was seen by Dr. Ospina with infectious disease who felt that this was likely chronic osteo and not acute. Overnight last night he became acutely delirious, and has a very strong alcohol history, and was thought most likely to be an alcohol withdrawal. He was given Ativan. This morning, he was much more somnolent. This afternoon a rapid response was called because the patient was unresponsive. When I arrived, the patient had a oxygen saturation of 30% with a good plethysmograph waveform. He was emergently transferred to the ICU and intubated. He had a chest x-ray showing bilateral pulmonary protrudes in all lobes, more suggestive of ARDS. The patient was tachycardic, febrile, very septic appearing. He is toxic. Unfortunately, the patient is unresponsive and cannot provide any additional history. 01/03: remains intubated, sedated. persistent bilateral infiltrates. likely ARDS. remains on vasopressors. 01/04: Continued to spike fever 101.3 Tmax. Chest x-ray shows continued bilateral infiltrates/ARDS. Remains on Levophed at 4 mics per minute. Currently on Zosyn and micafungin, vancomycin added for additional gram- positive coverage 01/05: Continues to be hypoxemic currently on FiO2 65%. Chest x-ray shows worsening bilateral pulmonary edema. Fever trending down currently on vancomycin Zosyn and micafungin. Azithromycin added for atypical coverage. I will also increase PEEP to 12, stop IV fluids and give 2 mg IV Bumex 01/06: FiO2 down to 45%. PEEP remains at 12. 2.8 L urine output creatinine slightly improved to 1.8. Received 2 mg Bumex yesterday, nephrology has started scheduled Bumex 1 mg every 12 today. Chest x-ray shows persistent ARDS/ pulmonary edema 01/07: net euvolemic overnight. clinically appears volume overloaded still. failed CPAP for tachypnea yesterday. afebrile. oxygenation stable. 01/08: net euvolemic overnight again. still volume overloaded. Cr slightly elevated. metabolic alkalosis persists. 01/09: FiO2 down to 45%, achieving negative fluid balance. Urine output more than 4 L. Creatinine remained stable 01/10:: Patient remains on 45% oxygen and PEEP of 8, heavily sedated with propofol fentanyl and Precedex. Warren fever of 102. Hemodynamically stable 01/11: Maintaining oxygenation on the PEEP of 8 and FiO2 35%. Otherwise remains sedated with Precedex and fentanyl. Highest temperature was yesterday before noon 102 no fever now. WBC count is slightly improved. Patient is being observed off antibiotics today 01/12: Currently on PSV trial with PEEP of 8. Tmax 100.8. Positive BM 2. Subjective: 01/13: Afebrile. Still not responsive. MRI brain/EEG ordered. Tolerating tube feeds. Positive BM. Tolerating PSV trials x 12 hours yesterday. Objective Vital Signs Date Time Temp Pulse Resp B/P Pulse Ox O2 Delivery O2 Flow Rate FiO2 01/13/17 07:49 95 35 01/13/17 06:00 71 01/13/17 04:00 99.0 23 124/74 Intake and Output 01/12/17 01/12/17 01/13/17 08:00 16:00 00:00 Intake Total 980 ml 1834 ml Output Total 1050 ml 2450 ml Balance -70 ml -616 ml Result Diagram: 01/13/17 0506 01/13/17 0506 Other Results Microbiology Date/Time Procedure Status Source Growth 01/10/17 20:20 Aerobic Blood Culture - Preliminary Resulted Blood Peripheral NO GROWTH IN 2 DAYS 01/10/17 20:20 Anaerobic Blood Culture - Preliminary Resulted Blood Peripheral NO GROWTH IN 2 DAYS Imaging Last Impressions Chest X-Ray 01/13/17 0600 Signed Impressions: Service Date/Time: Friday, January 13, 2017 03:50 - CONCLUSION: 1. Cardiomegaly and findings of vascular congestion without overt failure. The findings are improved when compared with the prior exam. Chris Mejias MD Chest CT 01/02/17 1645 Signed Impressions: Service Date/Time: Monday, January 02, 2017 22:10 - CONCLUSION: 1. Acute development of bilateral airspace disease as above with some peripheral sparing , especially at the bases. Findings nonspecific. Patient may be developing ARDS/diffuse alveolar damage. Other considerations include infection and severe hypersensitivity type reaction. 2. Endotracheal tube, nasogastric tube and left central line in satisfactory position. Christopher Lagos MD Head CT 4/5/17 0000 Signed Impressions: Service Date/Time: Monday, January 02, 2017 22:08 - CONCLUSION: Normal examination for a patient of this age. No significant change has occurred. Christopher Lagos MD Lower Extremity Ultrasound 01/01/17 Signed Impressions: Service Date/Time: Sunday, January 01, 2017 13:26 - CONCLUSION: Normal examination. Pk Ricks MD Lower Extremity MRI 01/01/17 Signed Impressions: Service Date/Time: Sunday, January 01, 2017 20:03 - CONCLUSION: Subcutaneous soft tissue edema distal leg. No evidence of osteomyelitis of the tibia or fibula. Issa Christiansen MD Foot X-Ray 01/01/17 Signed Impressions: Service Date/Time: Sunday, January 01, 2017 04:49 - CONCLUSION: No acute abnormality. Prior left toe amputation. Issa Wills Jr., MD Foot MRI 01/01/17 Signed Impressions: Service Date/Time: Sunday, January 01, 2017 20:03 - CONCLUSION: 1. Prominent subcutaneous soft tissue edema about the foot and ankle. 2. Abnormal signal in the distal metatarsal head of the 4th digit, characterized by T1 and T2 prolongation. Differential considerations include healing fracture and osteomyelitis. 3. Probable Aburto's neuroma in the interspace between the distal 2nd and 3rd metatarsal bones. Issa Christiansen MD Abdomen/Pelvis CT [id number]/31/[id number] Signed Impressions: Service Date/Time: Saturday, December 31, 2016 22:46 - CONCLUSION: 1. No acute abnormality to explain the patient's pain. 2. Colonic diverticulosis. No acute inflammation. 3. Suspected small calcified gallstone. The gallbladder is nondilated. 4. 4.2 cm left adrenal gland adenoma. Issa Wills Jr., MD Abdomen X-Ray 12/31/16 Signed Impressions: Service Date/Time: Saturday, December 31, 2016 19:25 - CONCLUSION: Unremarkable study except for stool. Lela Stephens MD Objective Remarks GENERAL: 56-year-old male, lying in bed, intubated, sedated. critically ill. HEENT: NC/1AT. Pupils equal, round, reactive, conjugate about 3 L bilaterally. Mucous membranes are moist and pink NECK: Obese neck. No thyromegaly or lymphadenopathy. 8.[address] CHEST: Diminished breath sounds bilaterally. Few crackles appreciated throughout all lung aguirre. No wheezing. CARDIOVASCULAR: RRR. S1, S2 no S4 without murmur ABDOMEN: Obese, soft, nontender, nondistended. No guarding. Hypoactive bowel sounds appreciated MUSCULOSKELETAL: 1+ peripheral edema. Distal pulses 2+. There is a small area on his left heel with a nonhealing ulcer. NEUROLOGICAL: Arousable on the ventilator. Moves all 4 extremity spontaneously. Does not follow commands. A/P Assessment and Plan Neuro/Psych: Post traumatic stress disorder Metabolic encephalopathy Alcohol withdrawal Agitated delirium Chronic narcotic use Propofol, fentanyl for goal RASS -2. PRN Ativan for breakthrough agitation. DC Propofol --Precedex to facilitate ventilator weaning --Continue scheduled Ativan 1 mg by mouth every 8 hours --continue Seroquel 50mg po q8hr Off morphine sulfate 60 mg twice a day and oxycodone 30 mg twice a day/home medication Off Lyrica screen milligrams by mouth twice a day IV thiamine, multivitamin Check MRI brain/EEG. Negative CT head 01/02 ammonia 20 on 01/02. Respiratory: Acute hypoxic respiratory failure ARDS Aspiration pneumonitis History of COPD Currently on PSV trial Bronchodilator therapy every 6 hours and as needed Vent bundle, Head of bed at 30 Wean FiO2 for goal SPO2 greater than 92% PEEP at 8. Extubation only when mental status permits Cardiovascular: Sinus tachycardia- resolving. Septic shock-resolved Hypertension Grade 2 diastolic dysfunction We'll discontinue Bumex today with appears clinically dry Off lisinopril 5 mill grams by mouth daily/home medication Currently on clonidine 0.3 mg 3 times a day. Echo 01/09 revealed EF 55-60%. No regional wall motion abnormality. Grade 2 diastolic dysfunction. Renal: Acute kidney injury Likely prerenal/ATN secondary to sepsis. --Strict I/Os, [place] Every hour urine outputs --Creat continues to improve --Bumex 1 mg twice a day Nephrology signed off FEN/GI: Acute protein calorie malnutritionmild Trend BMP --TF, Glucerna 1.5, goal of 60, nutrition consult. --Protonix 40 mg IV q24 Scheduled potassium 20 mEq twice a day - Senokot daily for bowel regimen. Heme/ID: Left foot nonhealing ulceration Septic shock- resolved. History of splenectomy -- 01/10/17 blood cultures 2 negative 01/02 sputum: NGTD --01/02 blood: NGTD --01/02 urine: NGTD. --01/02 heel wound culture enterococcus sensitive to ampicillin --F/u cultures from 01/04 ID observing off all ABX ID: Dr. Ospina following Santyl daily for foot ulcer Endocrine: Diabetes Hyperglycemia of critical illness -- SSI, medium scale, every 6 Holding Janumet one tablet twice a day and glyburide 10 mg by mouth twice a day Prophylaxis: GI Prophylaxis Protonix DVT Prophylaxis --SCDs Subcutaneous heparin 5000 units 3 times a day Critical Care: The total critical care time was 35 minutes. Time to perform other separately billable procedures was not included in the critical care time. Cleveland Vera MD Jan 13, 2017 10:48
--- NOTE | 2017-01-13 11:52 | RADRPT ---
EXAM DATE/TIME: 01/13/2017 10:49 [facility] COMPARISON: CT BRAIN W/O CONTRAST, January 02, 2017, 22:08. INDICATIONS : Altered mental status. MEDICAL HISTORY : Hypertension. Diabetes mellitus type 2. SURGICAL HISTORY : Splenectomy. Orthopedic. ENCOUNTER: Subsequent ACUITY: 2 weeks PAIN SCORE: 0/10 LOCATION: cranial TECHNIQUE: Multiplanar, multisequence MRI of the brain was performed without contrast. FINDINGS: There is no evidence for intracranial hemorrhage, mass effect, mass lesions, edema, or extra-axial fl uid collections. There are no signs of acute infarction for technique. The diffusion portion is unre markable. Slight degree of brain atrophy is seen. Slight periventricular white matter changes are see n nonspecific mostly consistent with chronic small vessel ischemic changes. There is encephalomalacia in the left frontal lobe and chronic opacification of bilateral mastoid air cells. CONCLUSION: Chronic atrophic and small vessel ischemic changes, encephalomalacia left frontal lob e chronic mastoiditis without any evidence for acute hemorrhage or mass effect. Lela Stephens MD on January 13, 2017 at 11:48 Board Certified Radiologist. This report was verified electronically.
--- NOTE | 2017-01-13 18:54 | MG ---
cc: NICOL MARTIN MD Lab No: [id number] Date: 01/13/17 Age:56 Sex: M Race: DATE OF 1960 HISTORY A 56-year-old on sedation. Generalized slowing noted. There is 1-4 Hz 10-30 microvolts occurring in a generalized fashion. No driving with photic stimulation. Single EKG showing sinus rhythm. INTERPRETATION Moderate to severe generalized encephalopathy without the presence of any epileptic activity. Clinical correlation. Nicol Martin MD MG/EO /5:34 PM /6:52 PM
[2017-01-13] MEDS: PANTOPRAZOLE SODIUM 40 MG VIAL IV PUSH SCH (19:59)
[2017-01-13] MEDS ORDERED: Vancomycin Consult Pharmacy 1 EA OTHER SCH (20:15)
[2017-01-13] MEDS: PIPERACIL-TAZO 4.5 GM PREMIX 100 ML IV SCH (20:41)
[2017-01-13] MEDS: ACETAMINOPHEN 325 MG TAB PO PRN (20:42)
[2017-01-13] MEDS ORDERED: VANCOMYCIN INJ 1,500 MG in SODIUM CHLORID 0.9% 500 ML INJ 500 ML IV ONE (21:00)
[2017-01-14] VITALS (20 sets, daily range): BP systolic 124–159; BP diastolic 69–96; PULSE 70–140; RESP 16–21; TEMP 99.6–101.6; O2SAT 93–100
[2017-01-14 01:36] LABS: BLOOD, URINE MOD (NEG); GLUCOSE,URINE 1000 mg/dL (NEG); KETONE, URINE NEG (NEG); NITRITE,URINE NEG (NEG); PH, URINE 5.5 (5.0-8.5); URINE COLOR LIGHT-YELLOW (YELLW/STRAW)
[2017-01-14 01:37] LABS: COMMENT (UR) CATH-CULT NOT IND; CULTURE IF INDICATED CATH CULTURE NOT IND
[2017-01-14] MEDS: DEXMEDETOMIDINE INJ 1,000 MCG in SODIUM CHLOR 0.9% 250 ML INJ 240 ML IV SCH (03:15)
[2017-01-14] MEDS: RESP: ALBUTEROL 2.5 MG/IPRATROPIUM 0.5 MG NEB (SCH) NEB ×4 (03:17→21:46)
[2017-01-14] MEDS: LORazepam 1 MG TAB PO SCH (05:36)
[2017-01-14] MEDS: HEPARIN SODIUM - SQ 10,000 UNITS/ML VIAL SQ SCH ×3 (05:36→21:25)
[2017-01-14] MEDS: QUEtiapine FUMARATE 100 MG TAB PO SCH (05:36)
[2017-01-14] MEDS: cloNIDine HCL 0.3 MG TAB PO SCH ×3 (05:36→21:26)
[2017-01-14] MEDS: INSULIN NovoLIN REGULAR SUPPLEMENTAL SCALE SQ SCH ×4 (05:37→23:34)
[2017-01-14] MEDS: ARTIFICIAL TEARS OPTH SOLN 15 ML BTL EACH EYE SCH ×3 (05:37→20:34)
[2017-01-14] MEDS: PIPERACIL-TAZO 4.5 GM PREMIX 100 ML IV SCH ×3 (05:38→20:33)
[2017-01-14] MEDS: CHLORHEXIDINE 0.12% (ORAL KIT) 15 ML CUP MT SCH ×2 (08:00→20:30)
--- NOTE | 2017-01-14 08:15 | HHI.CCPN ---
Subjective Remarks/Hospital Course This is a 56-year-old male who originally came into the emergency department with his left foot wound. He was admitted for IV antibiotics and cellulitis, possible osteomyelitis of the foot. He was seen by Dr. Ospina with infectious disease who felt that this was likely chronic osteo and not acute. Overnight last night he became acutely delirious, and has a very strong alcohol history, and was thought most likely to be an alcohol withdrawal. He was given Ativan. This morning, he was much more somnolent. This afternoon a rapid response was called because the patient was unresponsive. When I arrived, the patient had a oxygen saturation of 30% with a good plethysmograph waveform. He was emergently transferred to the ICU and intubated. He had a chest x-ray showing bilateral pulmonary protrudes in all lobes, more suggestive of ARDS. The patient was tachycardic, febrile, very septic appearing. He is toxic. Unfortunately, the patient is unresponsive and cannot provide any additional history. 01/03: remains intubated, sedated. persistent bilateral infiltrates. likely ARDS. remains on vasopressors. 01/04: Continued to spike fever 101.3 Tmax. Chest x-ray shows continued bilateral infiltrates/ARDS. Remains on Levophed at 4 mics per minute. Currently on Zosyn and micafungin, vancomycin added for additional gram- positive coverage 01/05: Continues to be hypoxemic currently on FiO2 65%. Chest x-ray shows worsening bilateral pulmonary edema. Fever trending down currently on vancomycin Zosyn and micafungin. Azithromycin added for atypical coverage. I will also increase PEEP to 12, stop IV fluids and give 2 mg IV Bumex 01/06: FiO2 down to 45%. PEEP remains at 12. 2.8 L urine output creatinine slightly improved to 1.8. Received 2 mg Bumex yesterday, nephrology has started scheduled Bumex 1 mg every 12 today. Chest x-ray shows persistent ARDS/ pulmonary edema 01/07: net euvolemic overnight. clinically appears volume overloaded still. failed CPAP for tachypnea yesterday. afebrile. oxygenation stable. 01/08: net euvolemic overnight again. still volume overloaded. Cr slightly elevated. metabolic alkalosis persists. 01/09: FiO2 down to 45%, achieving negative fluid balance. Urine output more than 4 L. Creatinine remained stable 01/10:: Patient remains on 45% oxygen and PEEP of 8, heavily sedated with propofol fentanyl and Precedex. Warren fever of 102. Hemodynamically stable 01/11: Maintaining oxygenation on the PEEP of 8 and FiO2 35%. Otherwise remains sedated with Precedex and fentanyl. Highest temperature was yesterday before noon 102 no fever now. WBC count is slightly improved. Patient is being observed off antibiotics today 01/12: Currently on PSV trial with PEEP of 8. Tmax 100.8. Positive BM 2. 01/13: Afebrile. Still not responsive. MRI brain/EEG ordered. Tolerating tube feeds. Positive BM. Tolerating PSV trials x 12 hours yesterday. Subjective: 01/14: Tmax 100.8. Currently 99.8. Restarted antibiotics. Panculture. Tolerating PSV trials but not waking up and falling commands. MRI brain negative. EEG negative. Objective Vital Signs Date Time Temp Pulse Resp B/P Pulse Ox O2 Delivery O2 Flow Rate FiO2 01/14/17 06:00 90 01/14/17 04:00 35 01/14/17 04:00 99.6 17 139/80 94 Intake and Output 01/13/17 01/13/17 01/14/17 08:00 16:00 00:00 Intake Total 718 ml 884 ml 1383 ml Output Total 600 ml 1300 ml 1425 ml Balance 118 ml -416 ml -42 ml Result Diagram: 01/13/17 0506 01/13/17 0506 Other Results Microbiology Date/Time Procedure Status Source Growth 01/14/17 05:00 Gram Stain Received Sputum Endotracheal Pending 01/14/17 05:00 Sputum Culture Received Sputum Endotracheal Pending 01/13/17 21:56 Aerobic Blood Culture Received Blood Peripheral Pending 01/13/17 21:56 Anaerobic Blood Culture Received Blood Peripheral Pending 01/13/17 12:30 Influenza Types A,B Antigen (DREW) - Final Complete Nasal Washing NEGATIVE FOR FLU A AND B ANTIGEN.... 01/10/17 20:20 Aerobic Blood Culture - Preliminary Resulted Blood Peripheral NO GROWTH IN 3 DAYS 01/10/17 20:20 Anaerobic Blood Culture - Preliminary Resulted Blood Peripheral NO GROWTH IN 3 DAYS Imaging Last Impressions Chest X-Ray 01/13/17 0600 Signed Impressions: Service Date/Time: Friday, January 13, 2017 03:50 - CONCLUSION: 1. Cardiomegaly and findings of vascular congestion without overt failure. The findings are improved when compared with the prior exam. Chris Mejias MD Brain MRI 01/13/17 Signed Impressions: Service Date/Time: Friday, January 13, 2017 10:49 - CONCLUSION: Chronic atrophic and small vessel ischemic changes, encephalomalacia left frontal lobe chronic mastoiditis without any evidence for acute hemorrhage or mass effect. Lela Stephens MD Chest CT 01/02/17 1645 Signed Impressions: Service Date/Time: Monday, January 02, 2017 22:10 - CONCLUSION: 1. Acute development of bilateral airspace disease as above with some peripheral sparing , especially at the bases. Findings nonspecific. Patient may be developing ARDS/diffuse alveolar damage. Other considerations include infection and severe hypersensitivity type reaction. 2. Endotracheal tube, nasogastric tube and left central line in satisfactory position. Christopher Lagos MD Head CT 01/02/17 Signed Impressions: Service Date/Time: Monday, January 02, 2017 22:08 - CONCLUSION: Normal examination for a patient of this age. No significant change has occurred. Christopher Lagos MD Lower Extremity Ultrasound 01/01/17 Signed Impressions: Service Date/Time: Sunday, January 01, 2017 13:26 - CONCLUSION: Normal examination. Pk Ricks MD Lower Extremity MRI 01/01/17 Signed Impressions: Service Date/Time: Sunday, January 01, 2017 20:03 - CONCLUSION: Subcutaneous soft tissue edema distal leg. No evidence of osteomyelitis of the tibia or fibula. Issa Christiansen MD Foot X-Ray 01/01/17 Signed Impressions: Service Date/Time: Sunday, January 01, 2017 04:49 - CONCLUSION: No acute abnormality. Prior left toe amputation. Issa Wills Jr., MD Foot MRI 01/01/17 Signed Impressions: Service Date/Time: Sunday, January 01, 2017 20:03 - CONCLUSION: 1. Prominent subcutaneous soft tissue edema about the foot and ankle. 2. Abnormal signal in the distal metatarsal head of the 4th digit, characterized by T1 and T2 prolongation. Differential considerations include healing fracture and osteomyelitis. 3. Probable Aburto's neuroma in the interspace between the distal 2nd and 3rd metatarsal bones. Issa Christiansen MD Abdomen/Pelvis CT 12/31/16 1939 Signed Impressions: Service Date/Time: Saturday, December 31, 2016 22:46 - CONCLUSION: 1. No acute abnormality to explain the patient's pain. 2. Colonic diverticulosis. No acute inflammation. 3. Suspected small calcified gallstone. The gallbladder is nondilated. 4. 4.2 cm left adrenal gland adenoma. Issa Wills Jr., MD Abdomen X-Ray 12/31/16 0000 Signed Impressions: Service Date/Time: Saturday, December 31, 2016 19:25 - CONCLUSION: Unremarkable study except for stool. Lela Stephens MD Objective Remarks GENERAL: 56-year-old male, lying in bed, intubated, sedated. critically ill. HEENT: NC/1AT. Pupils equal, round, reactive, conjugate about 3 mm bilaterally. Mucous membranes are moist and pink NECK: Obese neck. No thyromegaly or lymphadenopathy. 8.[address] CHEST: Diminished breath sounds bilaterally. Few crackles appreciated throughout all lung aguirre. No wheezing. CARDIOVASCULAR: RRR. S1, S2 no S4 without murmur ABDOMEN: Obese, soft, nontender, nondistended. No guarding. Hypoactive bowel sounds appreciated MUSCULOSKELETAL: 1+ peripheral edema. Distal pulses 2+. There is a small area on his left heel with a nonhealing ulcer. NEUROLOGICAL: Arousable on the ventilator. Moves all 4 extremity spontaneously. Does not follow commands. A/P Assessment and Plan Neuro/Psych: Post traumatic stress disorder Metabolic encephalopathy Alcohol withdrawal Agitated delirium Chronic narcotic use Propofol, fentanyl for goal RASS -2. PRN Ativan for breakthrough agitation. DC Propofol --Precedex to facilitate ventilator weaning --Scheduled Ativan 1 mg by mouth every 8 hours - hold with altered mental status --Seroquel 50mg po q8hr - hold with altered mental status Off morphine sulfate 60 mg twice a day and oxycodone 30 mg twice a day/home medication Off Lyrica screen milligrams by mouth twice a day IV thiamine, multivitamin Check MRI brain/EEG. Negative CT head 01/02 ammonia 20 on 01/02. Respiratory: Acute hypoxic respiratory failure ARDS Aspiration pneumonitis History of COPD Currently on PSV trial Bronchodilator therapy every 6 hours and as needed Vent bundle, Head of bed at 30 Wean FiO2 for goal SPO2 greater than 92% PEEP at 5. Extubation only when mental status permits Cardiovascular: Sinus tachycardia- resolving. Septic shock-resolved Hypertension Grade 2 diastolic dysfunction Off lisinopril 5 mill grams by mouth daily/home medication Currently on clonidine 0.3 mg 3 times a day. Echo 01/09 revealed EF 55-60%. No regional wall motion abnormality. Grade 2 diastolic dysfunction. Renal: Acute kidney injury Likely prerenal/ATN secondary to sepsis. --Strict I/Os, [place] Every hour urine outputs --Creat continues to improve Nephrology signed off FEN/GI: Acute protein calorie malnutritionmild Hyperammonia Trend BMP --TF, Glucerna 1.5, goal of 60, nutrition consult. --Protonix 40 mg IV q24 - Colace twice a day/Senokot twice a day and lactulose twice a day for bowel regimen. Heme/ID: Left foot nonhealing ulceration Septic shock- resolved. History of splenectomy 01/14 - sputum - pending 01/13 - blood cultures 2 - pending 01/10/17 blood cultures 2 negative 01/02 sputum: NGTD 01/02 blood: NGTD 01/02 urine: NGTD. 01/02 heel wound culture enterococcus sensitive to ampicillin ID observing off all ABX but restarted. See Dr. Jain recommendations Zosyn , 1 dose vancomycin and micafungin. ID: Dr. Ospina following Santyl daily for foot ulcer Endocrine: Diabetes Hyperglycemia of critical illness -- SSI, medium scale, every 6 Holding Janumet one tablet twice a day and glyburide 10 mg by mouth twice a day Prophylaxis: GI Prophylaxis Protonix DVT Prophylaxis --SCDs Subcutaneous heparin 5000 units 3 times a day Critical Care: The total critical care time was 35 minutes. Time to perform other separately billable procedures was not included in the critical care time. Cleveland Vera MD Jan 14, 2017 08:15 Cleveland Vera MD Jan 14, 2017 08:15
[2017-01-14 08:52] LABS: BASOPHIL # 0.1 TH/MM3 (0-0.2); EOSINOPHIL # 0.9 TH/MM3 (0-0.4); EOSINOPHIL % 6.1 % (0.0-4.0); HEMATOCRIT 33.5 % (39.0-51.0); HEMO FLAGS DIFF FINAL; LYMPH % 23.4 % (9.0-44.0); LYMPHOCYTE # 3.5 TH/MM3 (1.0-4.8); MEAN CORPUSCULAR HEMOGLOBIN 33.7 PG (27.0-34.0); MEAN CORPUSCULAR HGB CONC 34.4 % (32.0-36.0); MONO % 8.9 % (0.0-8.0); NEUT % 60.6 % (16.0-70.0); PLATELET COUNT 743 TH/MM3 (150-450); RED BLOOD COUNT 3.42 MIL/MM3 (4.50-5.90); RED CELL DISTRIBUTION WIDTH 13.6 % (11.6-17.2); WHITE BLOOD COUNT 14.8 TH/MM3 (4.0-11.0)
[2017-01-14] MEDS: THIAMINE HCL 100 MG TAB PO SCH (09:00)
[2017-01-14] MEDS: SODIUM CHLORIDE 0.9% FLUSH 10 ML FLUSH IV FLUSH SCH ×2 (09:00→20:34)
[2017-01-14] MEDS ORDERED: MICAFUNGIN INJ 100 MG in SODIUM CHLORIDE 0.9% INJ 100 ML IV ONE (09:00)
[2017-01-14] MEDS: ASPIRIN 81 MG CHEW TAB PO SCH (09:00)
[2017-01-14] MEDS: MULTIVITAMIN TAB PO SCH (09:00)
[2017-01-14 09:25] LABS: BICARBONATE 27.3 MEQ/L (21.0-32.0); POTASSIUM 4.4 MEQ/L (3.5-5.1)
[2017-01-14] MEDS: DOCUSATE SODIUM 100 MG/10 ML UDC PO SCH ×2 (10:09→21:00)
[2017-01-14] MEDS: SENNOSIDES SYRUP 8.8 MG/5 ML CUP PO SCH ×2 (10:09→21:00)
[2017-01-14] MEDS: COLLAGENASE OINT 30 GM TUBE TOPICAL SCH (10:09)
[2017-01-14] MEDS: LACTULOSE SYRUP 20 GM/30 ML CUP PO SCH (10:09)
--- NOTE | 2017-01-14 14:12 | HHI.IDPN ---
Subjective Subjective Remarks Events noted Off pressors Pt remains intubated and on mech vent Low grade fevers again. No change overnight other than fever. No rash Antibiotics None Lines Line sites ok. Past Medical History BM, ETOHism tobaccoism Allergies: Coded Allergies: Toradol (Verified Allergy, Intermediate, Headache, 12/31/16) Objective . Vital Signs Date Time Temp Pulse Resp B/P Pulse Ox O2 Delivery O2 Flow Rate FiO2 01/14/17 12:00 35 01/14/17 12:00 86 01/14/17 11:24 93 35 01/14/17 10:00 82 01/14/17 09:17 96 35 01/14/17 09:17 35 01/14/17 08:00 35 01/14/17 08:00 75 01/14/17 06:00 90 01/14/17 04:00 84 01/14/17 04:00 35 01/14/17 04:00 99.6 84 17 139/80 94 01/14/17 03:59 95 35 01/14/17 02:00 78 01/14/17 01:20 96 35 01/14/17 00:00 100.8 83 16 137/76 96 01/14/17 00:00 83 01/14/17 00:00 35 01/13/17 22:31 96 35 01/13/17 22:00 92 01/13/17 20:00 35 01/13/17 20:00 101.5 94 23 152/78 98 01/13/17 20:00 94 01/13/17 20:00 96 35 01/13/17 16:00 35 01/13/17 16:00 98.2 128 17 128/60 95 01/13/17 15:42 35 01/13/17 15:39 97 35 01/13/17 01/13/17 01/14/17 15:00 23:00 07:00 Intake Total 884 ml 1383 ml 774 ml Output Total 1300 ml 1425 ml 650 ml Balance -416 ml -42 ml 124 ml Intake Oral 0 ml 0 ml IV Total 376 ml 806 ml 473 ml Tube Feeding 308 ml 577 ml 301 ml Other 200 ml Output Urine Total 1300 ml 1425 ml 650 ml # Bowel Movements 0 0 . Laboratory Tests Test 01/13/17 01/14/17 05:06 08:35 White Blood Count 16.4 TH/MM3 14.8 TH/MM3 Red Blood Count 3.40 MIL/MM3 3.42 MIL/MM3 Hemoglobin 11.2 GM/DL 11.5 GM/DL Hematocrit 33.5 % 33.5 % Mean Corpuscular Volume 98.4 FL 98.0 FL Mean Corpuscular Hemoglobin 33.1 PG 33.7 PG Mean Corpuscular Hemoglobin 33.6 % 34.4 % Concent Red Cell Distribution Width 13.7 % 13.6 % Platelet Count 744 TH/MM3 743 TH/MM3 Mean Platelet Volume 9.3 FL 9.6 FL Neutrophils (%) (Auto) 58.4 % 60.6 % Lymphocytes (%) (Auto) 25.2 % 23.4 % Monocytes (%) (Auto) 8.8 % 8.9 % Eosinophils (%) (Auto) 6.6 % 6.1 % Basophils (%) (Auto) 1.0 % 1.0 % Neutrophils # (Auto) 9.6 TH/MM3 9.0 TH/MM3 Lymphocytes # (Auto) 4.1 TH/MM3 3.5 TH/MM3 Monocytes # (Auto) 1.4 TH/MM3 1.3 TH/MM3 Eosinophils # (Auto) 1.1 TH/MM3 0.9 TH/MM3 Basophils # (Auto) 0.2 TH/MM3 0.1 TH/MM3 CBC Comment DIFF FINAL DIFF FINAL Differential Comment Laboratory Tests Test 01/13/17 01/14/17 05:06 08:35 Sodium Level 145 MEQ/L 147 MEQ/L Potassium Level 4.3 MEQ/L 4.4 MEQ/L Chloride Level 110 MEQ/L 113 MEQ/L Carbon Dioxide Level 27.6 MEQ/L 27.3 MEQ/L Anion Gap 7 MEQ/L 7 MEQ/L Blood Urea Nitrogen 64 MG/DL 63 MG/DL Creatinine 1.67 MG/DL 1.83 MG/DL Estimat Glomerular Filtration 43 ML/MIN 39 ML/MIN Rate Random Glucose 330 MG/DL 334 MG/DL Calcium Level 9.5 MG/DL 9.6 MG/DL Phosphorus Level 4.5 MG/DL Magnesium Level 2.6 MG/DL Total Bilirubin 0.3 MG/DL Aspartate Amino Transf 9 U/L (AST/SGOT) Alanine Aminotransferase 15 U/L (ALT/SGPT) Alkaline Phosphatase 88 U/L Ammonia 43 MCMOL/L 34 MCMOL/L Total Protein 8.1 GM/DL Albumin 3.0 GM/DL Microbiology Date/Time Procedure Status Source Growth 01/13/17 12:30 Influenza Types A,B Antigen (DREW) - Final Complete Nasal Washing NEGATIVE FOR FLU A AND B ANTIGEN.... 01/13/17 21:45 Aerobic Blood Culture - Preliminary Resulted Blood Peripheral NO GROWTH IN 1 DAY 01/13/17 21:45 Anaerobic Blood Culture - Preliminary Resulted Blood Peripheral NO GROWTH IN 1 DAY 01/13/17 21:56 Aerobic Blood Culture - Preliminary Resulted Blood Peripheral NO GROWTH IN 1 DAY 01/13/17 21:56 Anaerobic Blood Culture - Preliminary Resulted Blood Peripheral NO GROWTH IN 1 DAY 01/14/17 05:00 Gram Stain Received Sputum Endotracheal Pending 01/14/17 05:00 Sputum Culture Received Sputum Endotracheal Pending Imaging Last Impressions Chest X-Ray 01/09/17 0000 Signed Impressions: Service Date/Time: Monday, January 09, 2017 13:15 - CONCLUSION: Improved aeration. Sly Sánchez MD Chest CT 01/02/17 1645 Signed Impressions: Service Date/Time: Monday, January 02, 2017 22:10 - CONCLUSION: 1. Acute development of bilateral airspace disease as above with some peripheral sparing , especially at the bases. Findings nonspecific. Patient may be developing ARDS/diffuse alveolar damage. Other considerations include infection and severe hypersensitivity type reaction. 2. Endotracheal tube, nasogastric tube and left central line in satisfactory position. Christopher Lagos MD Head CT 01/02/17 0000 Signed Impressions: Service Date/Time: Monday, January 02, 2017 22:08 - CONCLUSION: Normal examination for a patient of this age. No significant change has occurred. Christopher Lagos MD Lower Extremity Ultrasound 01/01/17 0000 Signed Impressions: Service Date/Time: Sunday, January 01, 2017 13:26 - CONCLUSION: Normal examination. Pk Ricks MD Lower Extremity MRI 01/01/17 0000 Signed Impressions: Service Date/Time: Sunday, January 01, 2017 20:03 - CONCLUSION: Subcutaneous soft tissue edema distal leg. No evidence of osteomyelitis of the tibia or fibula. Issa Christiansen MD Foot X-Ray 01/01/17 0000 Signed Impressions: Service Date/Time: Sunday, January 01, 2017 04:49 - CONCLUSION: No acute abnormality. Prior left toe amputation. Issa Wills Jr., MD Foot MRI 01/01/17 0000 Signed Impressions: Service Date/Time: Sunday, January 01, 2017 20:03 - CONCLUSION: 1. Prominent subcutaneous soft tissue edema about the foot and ankle. 2. Abnormal signal in the distal metatarsal head of the 4th digit, characterized by T1 and T2 prolongation. Differential considerations include healing fracture and osteomyelitis. 3. Probable Aburto's neuroma in the interspace between the distal 2nd and 3rd metatarsal bones. Issa Christiansen MD Abdomen/Pelvis CT 12/31/16 193 Signed Impressions: Service Date/Time: Saturday, December 31, 2016 22:46 - CONCLUSION: 1. No acute abnormality to explain the patient's pain. 2. Colonic diverticulosis. No acute inflammation. 3. Suspected small calcified gallstone. The gallbladder is nondilated. 4. 4.2 cm left adrenal gland adenoma. Issa Wills Jr., MD Abdomen X-Ray 12/31/16 0000 Signed Impressions: Service Date/Time: Saturday, December 31, 2016 19:25 - CONCLUSION: Unremarkable study except for stool. KMarlo Stephens MD Physical Exam CONSTITUTIONAL/GENERAL: This is an obese patient, in no apparent distress. sedated int'd on [facility] vent TUBES/LINES/DRAINS: SKIN: No jaundice, rashes, or lesions. HEAD: Atraumatic. Normocephalic. EYES: Pupils equal and round and reactive. Extraocular motions intact. No scleral icterus. No injection or drainage. Fundi not examined. ENT: Oral mucosae moist, dentition poor orally int'd NECK: Trachea midline. Supple, nontender. CARDIOVASCULAR: Regular rate and rhythm without murmurs, gallops, or rubs. No JVD. Peripheral pulses symmetric. RESPIRATORY/CHEST: Symmetric, unlabored respirations. Breath sounds equal bilaterally. GASTROINTESTINAL: Abdomen soft, non-tender, nondistended. Bowel sounds present. GENITOURINARY: Without palpable bladder distension. Chamorro catheter in place with slightly cloudy yellow urine MUSCULOSKELETAL: Extremities without clubbing, cyanosis, or edema. NEUROLOGICAL: sedated unresponsive PSYCHIATRIC: unable to assess Foot no s.o active infection such as erythema, warmth. Assessment & Plan Remarks Septic shock likely secondary to aspiration pneumonia, resolved. Fever: likely non infectious. Aspiration PNA likely related to alcoholism. Now with ? HCAP. Has no CLs. Obstructive uropathy and ARF Acute renal failurelikely post obstructive Rhabdomyolysis Acute urinary retention Left heel chronic diabetic ulcer, no e/o osteo of L heel sp b/s debridement - growing enterococcus along with skin ricky from surface clx ; doubt clin significance - this is likely not the source of pt possible sepsis Hypoxia with new infiltrates ? ARDS ? 2/2 sepsis vs aspiration pneumonitis Persistent low grade fever Recs Normal Procalcitonin (trend observed). Ok to continue Vanco IV and Zosyn IV for now. Doppler UE and LE to r/o DVT. Follow cultures. Follow clinically. Dr.A. Ospina to resume care in am 01/15/17. Guillermina Jain MD Jan 14, 2017 14:12
--- NOTE | 2017-01-14 16:02 | RADRPT ---
EXAM DATE/TIME: 01/14/2017 14:44 [facility] COMPARISON: No previous studies available for comparison. INDICATIONS : Bilateral leg swelling. MEDICAL HISTORY : Hypertension. Diabetic. Neuropathy. SURGICAL HISTORY : Mandible. Right leg. Right wrist. Left knee. Neck. Spleenectomy ENCOUNTER: Initial ACUITY: 1 day PAIN SCORE: Non-responsive LOCATION: Bilateral leg. TECHNIQUE: Venous ultrasound of the left and right leg was performed from the inguinal ligament to the proximal calf. Real-time, color Doppler and spectral tracing, compression and augmentation techniques were us ed. FINDINGS: RIGHT LEG: There is normal compressibility of the deep venous system from the inguinal region to the proximal ca lf. No echogenic clot is seen in the lumen of the common femoral, femoral, popliteal, and posterior tibial veins. There is a normal response of the venous system to proximal and distal augmentation an d respiration. LEFT LEG: There is normal compressibility of the deep venous system from the inguinal region to the proximal ca lf. No echogenic clot is seen in the lumen of the common femoral, femoral, popliteal, and posterior tibial veins. There is a normal response of the venous system to proximal and distal augmentation an d respiration. CONCLUSION: No evidence of deep venous thrombosis within the lower extremities. Christian Antoine MD on January 14, 2017 at 16:00 Board Certified Radiologist. This report was verified electronically.
--- NOTE | 2017-01-14 16:23 | RADRPT ---
EXAM DATE/TIME: 01/14/2017 15:01 [facility] COMPARISON: No previous studies available for comparison. INDICATIONS : Bilateral arm swelling. MEDICAL HISTORY : Diabetic. Neuropathy. Hypertension. SURGICAL HISTORY : Mandible. Right leg. Right wrist. Left knee. Neck. Spleenectomy. ENCOUNTER: Initial ACUITY: 1 day PAIN SCORE: Non-responsive LOCATION: Bilateral arm. FINDINGS: RIGHT UPPER EXTREMITY: There is spontaneous flow documented in the brachial, basilic, axillary, and subclavian veins. There is thrombus within the cephalic vein from proximal to midportion. LEFT UPPER EXTREMITY: There is spontaneous flow documented in the brachial, basilic, cephalic, axillary, and subclavian vei ns. The vessels are compressible and augmentation response is documented. No filling defects are se en. The flow is phasic with respiration. Direction of flow in the jugular vein is caudal. CONCLUSION: Thrombus is seen within the right cephalic vein. Lela Stephens MD on January 14, 2017 at 16:20 Board Certified Radiologist. This report was verified electronically.
[2017-01-14] MEDS: ACETAMINOPHEN 325 MG TAB PO PRN (18:24)
[2017-01-14] MEDS: fentaNYL DRIP 250 ML IV SCH (19:58)
[2017-01-14] MEDS: PANTOPRAZOLE SODIUM 40 MG VIAL IV PUSH SCH (20:33)
[2017-01-15] VITALS (14 sets, daily range): BP systolic 134–146; BP diastolic 72–81; PULSE 85–118; RESP 16–23; TEMP 99.3–101.1; O2SAT 93–100
[2017-01-15 04:18] LABS: AUTOMATED NEUTROPHIL # 10.6 TH/MM3 (1.8-7.7); BASOPHIL # 0.2 TH/MM3 (0-0.2); BASOPHIL % 1.4 % (0.0-2.0); EOSINOPHIL # 0.3 TH/MM3 (0-0.4); EOSINOPHIL % 1.6 % (0.0-4.0); HEMATOCRIT 35.4 % (39.0-51.0); HEMO FLAGS DIFF FINAL; LYMPH % 20.5 % (9.0-44.0); LYMPHOCYTE # 3.2 TH/MM3 (1.0-4.8); MEAN CELL VOLUME 99.4 FL (80.0-100.0); MEAN CORPUSCULAR HGB CONC 32.2 % (32.0-36.0); MONO % 8.5 % (0.0-8.0); PLATELET COUNT 688 TH/MM3 (150-450); RED BLOOD COUNT 3.57 MIL/MM3 (4.50-5.90); RED CELL DISTRIBUTION WIDTH 13.8 % (11.6-17.2); WHITE BLOOD COUNT 15.6 TH/MM3 (4.0-11.0)
[2017-01-15] MEDS: RESP: ALBUTEROL 2.5 MG/IPRATROPIUM 0.5 MG NEB (SCH) NEB ×4 (04:21→21:51)
[2017-01-15 04:43] LABS: ALT (GPT) 12 U/L (12-78); ANION GAP 10 MEQ/L (5-15); AST (GOT) 11 U/L (15-37); BICARBONATE 25.2 MEQ/L (21.0-32.0); BLOOD UREA NITROGEN 61 MG/DL (7-18); CHLORIDE 116 MEQ/L (98-107); GLOMERULAR FILTRATION RATE 38 ML/MIN (>89); MAGNESIUM 2.6 MG/DL (1.5-2.5); POTASSIUM 3.8 MEQ/L (3.5-5.1); SODIUM (NA) 151 MEQ/L (136-145)
[2017-01-15 04:44] LABS: ALKALINE PHOSPHATASE 90 U/L (45-117); CREATINE KINASE 116 U/L (39-308); TOTAL BILIRUBIN ADULT 0.5 MG/DL (0.2-1.0)
[2017-01-15] MEDS: ARTIFICIAL TEARS OPTH SOLN 15 ML BTL EACH EYE SCH ×3 (04:49→21:57)
[2017-01-15] MEDS: PIPERACIL-TAZO 4.5 GM PREMIX 100 ML IV SCH ×3 (04:49→21:57)
[2017-01-15] MEDS: HEPARIN SODIUM - SQ 10,000 UNITS/ML VIAL SQ SCH ×3 (04:49→21:58)
[2017-01-15] MEDS: cloNIDine HCL 0.3 MG TAB PO SCH (04:50)
[2017-01-15] MEDS: INSULIN NovoLIN REGULAR SUPPLEMENTAL SCALE SQ SCH ×4 (04:51→20:00)
--- NOTE | 2017-01-15 06:03 | RADRPT ---
EXAM DATE/TIME: 01/15/2017 04:12 [facility] COMPARISON: CHEST SINGLE AP, January 13, 2017, 3:50. INDICATIONS : Shortness of breath. MEDICAL HISTORY : Diabetes mellitus type II. Renal insufficiency. Cardiovascular disease. SURGICAL HISTORY : None. ENCOUNTER: Subsequent ACUITY: 2 weeks PAIN SCORE: Non-responsive. LOCATION: Bilateral chest FINDINGS: A single view of the chest demonstrates some increased density throughout the left lung infiltrate ve rsus asymmetric failure. The aorta remains tortuous. The cardiomediastinal contours are unremarkable . Osseous structures are intact. CONCLUSION: Increased density the left chest infiltrate versus asymmetric failure. Multiple healed left-sided ri b fractures. Tahir Worley MD on January 15, 2017 at 6:01 Board Certified Radiologist. This report was verified electronically.
[2017-01-15] MEDS: CHLORHEXIDINE 0.12% (ORAL KIT) 15 ML CUP MT SCH ×2 (08:00→20:00)
[2017-01-15] MEDS: ASPIRIN 81 MG CHEW TAB PO SCH (08:24)
[2017-01-15] MEDS: LACTULOSE SYRUP 20 GM/30 ML CUP PO SCH (08:24)
[2017-01-15] MEDS: MULTIVITAMIN TAB PO SCH (08:24)
[2017-01-15] MEDS: THIAMINE HCL 100 MG TAB PO SCH (08:24)
[2017-01-15] MEDS: SENNOSIDES SYRUP 8.8 MG/5 ML CUP PO SCH ×2 (08:24→21:00)
[2017-01-15] MEDS: DOCUSATE SODIUM 100 MG/10 ML UDC PO SCH ×2 (08:24→21:00)
[2017-01-15] MEDS: SODIUM CHLORIDE 0.9% FLUSH 10 ML FLUSH IV FLUSH SCH ×2 (08:25→21:57)
[2017-01-15] MEDS: COLLAGENASE OINT 30 GM TUBE TOPICAL SCH (08:25)
[2017-01-15] MEDS: DEXMEDETOMIDINE INJ 1,000 MCG in SODIUM CHLOR 0.9% 250 ML INJ 240 ML IV SCH ×2 (08:27→22:32)
[2017-01-15] MEDS ORDERED: SODIUM CHLOR 0.9% 1000 ML INJ 1,000 ML IV SCH (09:30)
--- NOTE | 2017-01-15 09:44 | HHI.CCPN ---
Subjective Remarks/Hospital Course This is a 56-year-old male who originally came into the emergency department with his left foot wound. He was admitted for IV antibiotics and cellulitis, possible osteomyelitis of the foot. He was seen by Dr. Ospina with infectious disease who felt that this was likely chronic osteo and not acute. Overnight last night he became acutely delirious, and has a very strong alcohol history, and was thought most likely to be an alcohol withdrawal. He was given Ativan. This morning, he was much more somnolent. This afternoon a rapid response was called because the patient was unresponsive. When I arrived, the patient had a oxygen saturation of 30% with a good plethysmograph waveform. He was emergently transferred to the ICU and intubated. He had a chest x-ray showing bilateral pulmonary protrudes in all lobes, more suggestive of ARDS. The patient was tachycardic, febrile, very septic appearing. He is toxic. Unfortunately, the patient is unresponsive and cannot provide any additional history. 01/03: remains intubated, sedated. persistent bilateral infiltrates. likely ARDS. remains on vasopressors. 01/04: Continued to spike fever 101.3 Tmax. Chest x-ray shows continued bilateral infiltrates/ARDS. Remains on Levophed at 4 mics per minute. Currently on Zosyn and micafungin, vancomycin added for additional gram- positive coverage 01/05: Continues to be hypoxemic currently on FiO2 65%. Chest x-ray shows worsening bilateral pulmonary edema. Fever trending down currently on vancomycin Zosyn and micafungin. Azithromycin added for atypical coverage. I will also increase PEEP to 12, stop IV fluids and give 2 mg IV Bumex 01/06: FiO2 down to 45%. PEEP remains at 12. 2.8 L urine output creatinine slightly improved to 1.8. Received 2 mg Bumex yesterday, nephrology has started scheduled Bumex 1 mg every 12 today. Chest x-ray shows persistent ARDS/ pulmonary edema 01/07: net euvolemic overnight. clinically appears volume overloaded still. failed CPAP for tachypnea yesterday. afebrile. oxygenation stable. 01/08: net euvolemic overnight again. still volume overloaded. Cr slightly elevated. metabolic alkalosis persists. 01/09: FiO2 down to 45%, achieving negative fluid balance. Urine output more than 4 L. Creatinine remained stable 01/10:: Patient remains on 45% oxygen and PEEP of 8, heavily sedated with propofol fentanyl and Precedex. Warren fever of 102. Hemodynamically stable 01/11: Maintaining oxygenation on the PEEP of 8 and FiO2 35%. Otherwise remains sedated with Precedex and fentanyl. Highest temperature was yesterday before noon 102 no fever now. WBC count is slightly improved. Patient is being observed off antibiotics today 01/12: Currently on PSV trial with PEEP of 8. Tmax 100.8. Positive BM 2. 01/13: Afebrile. Still not responsive. MRI brain/EEG ordered. Tolerating tube feeds. Positive BM. Tolerating PSV trials x 12 hours yesterday. 01/14: Tmax 100.8. Currently 99.8. Restarted antibiotics. Panculture. Tolerating PSV trials but not waking up and falling commands. MRI brain negative. EEG negative. Subjective: 01/15: Tmax 101.6. Currently 100.1. Self extubated overnight. Currently on room air. Arousable but nonverbal. Protecting airway Not verbal. MRI brain showed no acute signs of CVA or hemorrhage/EEG negative. Objective Vital Signs Date Time Temp Pulse Resp B/P Pulse Ox O2 Delivery O2 Flow Rate FiO2 01/15/17 06:00 114 01/15/17 04:00 100.1 17 134/76 100 01/14/17 23:20 Partial Rebreather 15.00 01/14/17 16:22 35 Intake and Output 01/14/17 01/14/17 01/15/17 08:00 16:00 00:00 Intake Total 774 ml 593 ml 427 ml Output Total 650 ml 2000 ml 850 ml Balance 124 ml -1407 ml -423 ml Result Diagram: 01/15/17 0324 01/15/17 0324 Other Results Microbiology Date/Time Procedure Status Source Growth 01/14/17 05:00 Gram Stain - Final Resulted Sputum Endotracheal 01/14/17 05:00 Sputum Culture Resulted Sputum Endotracheal Pending 01/13/17 21:56 Aerobic Blood Culture - Preliminary Resulted Blood Peripheral NO GROWTH IN 1 DAY 01/13/17 21:56 Anaerobic Blood Culture - Preliminary Resulted Blood Peripheral NO GROWTH IN 1 DAY 01/13/17 12:30 Influenza Types A,B Antigen (DREW) - Final Complete Nasal Washing NEGATIVE FOR FLU A AND B ANTIGEN.... Imaging Last Impressions Chest X-Ray 01/15/17 0600 Signed Impressions: Service Date/Time: Sunday, January 15, 2017 04:12 - CONCLUSION: Increased density the left chest infiltrate versus asymmetric failure. Multiple healed left-sided rib fractures. Tahir Worley MD Upper Extremity Ultrasound 01/14/17 0000 Signed Impressions: Service Date/Time: Saturday, January 14, 2017 15:01 - CONCLUSION: Thrombus is seen within the right cephalic vein. Lela Stephens MD Lower Extremity Ultrasound 01/14/17 Signed Impressions: Service Date/Time: Saturday, January 14, 2017 14:44 - CONCLUSION: No evidence of deep venous thrombosis within the lower extremities. Christian Antoine MD Brain MRI 01/13/17 Signed Impressions: Service Date/Time: Friday, January 13, 2017 10:49 - CONCLUSION: Chronic atrophic and small vessel ischemic changes, encephalomalacia left frontal lobe chronic mastoiditis without any evidence for acute hemorrhage or mass effect. Lela Stephens MD Chest CT 01/02/17 1645 Signed Impressions: Service Date/Time: Monday, January 02, 2017 22:10 - CONCLUSION: 1. Acute development of bilateral airspace disease as above with some peripheral sparing , especially at the bases. Findings nonspecific. Patient may be developing ARDS/diffuse alveolar damage. Other considerations include infection and severe hypersensitivity type reaction. 2. Endotracheal tube, nasogastric tube and left central line in satisfactory position. Christopher Lagos MD Head CT 01/02/17 Signed Impressions: Service Date/Time: Monday, January 02, 2017 22:08 - CONCLUSION: Normal examination for a patient of this age. No significant change has occurred. Christopher Lagos MD Lower Extremity MRI 01/01/17 Signed Impressions: Service Date/Time: Sunday, January 01, 2017 20:03 - CONCLUSION: Subcutaneous soft tissue edema distal leg. No evidence of osteomyelitis of the tibia or fibula. Issa Christiansen MD Foot X-Ray 01/01/17 Signed Impressions: Service Date/Time: Sunday, January 01, 2017 04:49 - CONCLUSION: No acute abnormality. Prior left toe amputation. Issa Wills Jr., MD Foot MRI 01/01/17 Signed Impressions: Service Date/Time: Sunday, January 01, 2017 20:03 - CONCLUSION: 1. Prominent subcutaneous soft tissue edema about the foot and ankle. 2. Abnormal signal in the distal metatarsal head of the 4th digit, characterized by T1 and T2 prolongation. Differential considerations include healing fracture and osteomyelitis. 3. Probable Aburto's neuroma in the interspace between the distal 2nd and 3rd metatarsal bones. Issa Christiansen MD Abdomen/Pelvis CT 12/31/16 193 Signed Impressions: Service Date/Time: Saturday, December 31, 2016 22:46 - CONCLUSION: 1. No acute abnormality to explain the patient's pain. 2. Colonic diverticulosis. No acute inflammation. 3. Suspected small calcified gallstone. The gallbladder is nondilated. 4. 4.2 cm left adrenal gland adenoma. Issa Wills Jr., MD Abdomen X-Ray 12/31/16 0000 Signed Impressions: Service Date/Time: Saturday, December 31, 2016 19:25 - CONCLUSION: Unremarkable study except for stool. KMarlo Stephens MD Objective Remarks GENERAL: 56-year-old male, lying in bed, extubated in no acute distress HEENT: NC/1AT. Pupils equal, round, reactive, conjugate about 3 mm bilaterally. Mucous membranes are moist and pink. Oropharynx without erythema or exudates NECK: Obese neck. No thyromegaly or lymphadenopathy. CHEST: Diminished breath sounds bilaterally. Few crackles appreciated throughout all lung aguirre. No wheezing. CARDIOVASCULAR: RRR. S1, S2 no S4 without murmur ABDOMEN: Obese, soft, nontender, nondistended. No guarding. Hypoactive bowel sounds appreciated MUSCULOSKELETAL: 1+ peripheral edema. Distal pulses 2+. There is a small area on his left heel with a nonhealing ulcer. NEUROLOGICAL: Able to move all 4 extremities spontaneously but weakly. Stares at you A/P Assessment and Plan Neuro/Psych: Post traumatic stress disorder Metabolic encephalopathy Alcohol withdrawal Agitated delirium Chronic narcotic use Precedex drip currently at 0.6 mcg/kg per hour. Wean as tolerated Scheduled Ativan 1 mg by mouth every 8 hours - hold with altered mental status Seroquel 50mg po q8hr - hold with altered mental status Off morphine sulfate 60 mg twice a day and oxycodone 30 mg twice a day/home medication Off Lyrica 150 milligrams by mouth twice a day IV thiamine, multivitamin and folate 01/13 MRI brain was negative for acute intracranial findings/EEG showed moderate to severe encephalopathy with norepinephrine activity. Negative CT head 01/02 ammonia 20 on 01/02. 37 01/13 Respiratory: Acute hypoxic respiratory failure ARDS Aspiration pneumonitis History of COPD Nasal cannula to maintain saturations greater than equal to 92% Incentive spirometry while awake Bronchodilator therapy every 6 hours and as needed Head of bed at 30 Self extubated 01/14 Cardiovascular: Sinus tachycardia- resolving. Septic shock-resolved Hypertension Grade 2 diastolic dysfunction Off lisinopril 5 mill grams by mouth daily/home medication Currently on clonidine 0.3 mg 3 times a day. Will decrease 0.2 no grams daily and add clonidine patch while nothing by mouth Echo 01/09 revealed EF 55-60%. No regional wall motion abnormality. Grade 2 diastolic dysfunction. Renal: Acute kidney injury Likely prerenal/ATN secondary to sepsis. Strict I/Os, Chamorro Every hour urine outputs Creat continues to improve Nephrology signed off FEN/GI: Acute protein calorie malnutritionmild Hyperammonia Trend BMP Protonix 40 mg IV q24 Colace twice a day/Senokot twice a day and lactulose twice a day for bowel regimen. Heme/ID: Left foot nonhealing ulceration Septic shock- resolved. History of splenectomy Thrombocytosis Right Cephalic superficial venous thrombus Continue aspirin 81 mg daily for thrombocytosis likely secondary splenectomy. Slowly resolving Continue heparin 5000 every 8 for superficial upper extremity thrombus 01/14 - sputum -no growth 01/13 - blood cultures 2 -no growth 01/10/17 blood cultures 2 negative 01/02 sputum: NGTD 01/02 blood: NGTD 01/02 urine: NGTD. 01/02 heel wound culture enterococcus sensitive to ampicillin ID observing off all ABX but restarted. See Dr. Jain recommendations Zosyn , 1 dose vancomycin and micafungin. ID: Dr. Ospina following Santyl daily for foot ulcer Endocrine: Diabetes Hyperglycemia of critical illness -- SSI, medium scale, every 6 Holding Janumet one tablet twice a day and glyburide 10 mg by mouth twice a day MSK: Left second toe amputation No acute issues Prophylaxis: GI Prophylaxis Protonix DVT Prophylaxis --SCDs Subcutaneous heparin 5000 units 3 times a day Critical Care: The total critical care time was 35 minutes. Time to perform other separately billable procedures was not included in the critical care time. Cleveland Vera MD Jan 15, 2017 09:44
[2017-01-15] MEDS ORDERED: GLUCAGON 1 MG/ML VIAL OTHER PRN (09:45)
[2017-01-15] MEDS ORDERED: cloNIDine HCL 0.3 MG/24 HR PATCH T-DERMAL SCH (11:00)
[2017-01-15] MEDS: VANCOMYCIN INJ 1,500 MG in SODIUM CHLORID 0.9% 500 ML INJ 500 ML IV SCH (11:19)
[2017-01-15] MEDS: 1/2 NS + KCL 20 MEQ INJ 1,000 ML IV SCH (11:19)
[2017-01-15] MEDS: cloNIDine HCL 0.2 MG TAB PO SCH ×3 (17:23→22:00)
[2017-01-15] MEDS: PANTOPRAZOLE SODIUM 40 MG VIAL IV PUSH SCH (21:56)
[2017-01-15] MEDS: ACETAMINOPHEN 325 MG TAB PO PRN (21:58)
--- NOTE | 2017-01-15 22:25 | HHI.IDPN ---
Subjective Subjective Remarks Delayed entey - pt was seen around 1630 Events noted Tolerating self extubation currently on venti mask Off pressors cont to have fevers up to 101 No rash growing GNB in sputum and coag neg staph in one set of blood clx Antibiotics zosyn vanco Lines Line sites ok. Past Medical History BM, ETOHism tobaccoism Allergies: Coded Allergies: Toradol (Verified Allergy, Intermediate, Headache, 12/31/16) Objective . Vital Signs Date Time Temp Pulse Resp B/P Pulse Ox O2 Delivery O2 Flow Rate FiO2 01/15/17 21:52 96 Venturi Mask 6.00 40 01/15/17 18:00 93 01/15/17 16:00 90 01/15/17 16:00 100.9 103 17 146/78 94 01/15/17 14:00 86 01/15/17 12:00 99.3 118 18 134/77 93 01/15/17 12:00 85 01/15/17 10:00 100 01/15/17 09:35 94 Venturi Mask 6.00 40 01/15/17 08:00 86 01/15/17 08:00 100.8 109 18 144/81 97 01/15/17 06:00 114 01/15/17 04:00 99 01/15/17 04:00 100.1 99 17 134/76 100 01/15/17 02:00 100 01/15/17 00:00 99.9 111 16 143/80 99 01/15/17 00:00 111 01/14/17 23:20 99 Partial Rebreather 15.00 01/14/17 01/14/17 01/15/17 15:00 23:00 07:00 Intake Total 593 ml 427 ml 207 ml Output Total 2000 ml 850 ml 550 ml Balance -1407 ml -423 ml -343 ml Intake Oral 0 ml IV Total 300 ml 427 ml 207 ml Tube Feeding 293 ml Output Urine Total 2000 ml 850 ml 550 ml # Bowel Movements 1 0 0 . Laboratory Tests Test 01/14/17 01/15/17 08:35 03:24 White Blood Count 14.8 TH/MM3 15.6 TH/MM3 Red Blood Count 3.42 MIL/MM3 3.57 MIL/MM3 Hemoglobin 11.5 GM/DL 11.4 GM/DL Hematocrit 33.5 % 35.4 % Mean Corpuscular Volume 98.0 FL 99.4 FL Mean Corpuscular Hemoglobin 33.7 PG 32.0 PG Mean Corpuscular Hemoglobin 34.4 % 32.2 % Concent Red Cell Distribution Width 13.6 % 13.8 % Platelet Count 743 TH/MM3 688 TH/MM3 Mean Platelet Volume 9.6 FL 10.0 FL Neutrophils (%) (Auto) 60.6 % 68.0 % Lymphocytes (%) (Auto) 23.4 % 20.5 % Monocytes (%) (Auto) 8.9 % 8.5 % Eosinophils (%) (Auto) 6.1 % 1.6 % Basophils (%) (Auto) 1.0 % 1.4 % Neutrophils # (Auto) 9.0 TH/MM3 10.6 TH/MM3 Lymphocytes # (Auto) 3.5 TH/MM3 3.2 TH/MM3 Monocytes # (Auto) 1.3 TH/MM3 1.3 TH/MM3 Eosinophils # (Auto) 0.9 TH/MM3 0.3 TH/MM3 Basophils # (Auto) 0.1 TH/MM3 0.2 TH/MM3 CBC Comment DIFF FINAL DIFF FINAL Differential Comment Laboratory Tests Test 01/14/17 01/15/17 08:35 03:24 Sodium Level 147 MEQ/L 151 MEQ/L Potassium Level 4.4 MEQ/L 3.8 MEQ/L Chloride Level 113 MEQ/L 116 MEQ/L Carbon Dioxide Level 27.3 MEQ/L 25.2 MEQ/L Anion Gap 7 MEQ/L 10 MEQ/L Blood Urea Nitrogen 63 MG/DL 61 MG/DL Creatinine 1.83 MG/DL 1.85 MG/DL Estimat Glomerular Filtration 39 ML/MIN 38 ML/MIN Rate Random Glucose 334 MG/DL 274 MG/DL Calcium Level 9.6 MG/DL 9.4 MG/DL Ammonia 34 MCMOL/L Procalcitonin 0.08 ng/mL Phosphorus Level 3.7 MG/DL Magnesium Level 2.6 MG/DL Total Bilirubin 0.5 MG/DL Aspartate Amino Transf 11 U/L (AST/SGOT) Alanine Aminotransferase 12 U/L (ALT/SGPT) Alkaline Phosphatase 90 U/L Total Creatine Kinase 116 U/L Total Protein 8.0 GM/DL Albumin 3.0 GM/DL Microbiology Date/Time Procedure Status Source Growth 01/13/17 12:30 Influenza Types A,B Antigen (DREW) - Final Complete Nasal Washing NEGATIVE FOR FLU A AND B ANTIGEN.... 01/13/17 21:45 Aerobic Blood Culture - Preliminary Resulted Blood Peripheral NO GROWTH IN 2 DAYS 01/13/17 21:45 Anaerobic Blood Culture - Preliminary Resulted Blood Peripheral NO GROWTH IN 2 DAYS 01/13/17 21:56 Aerobic Blood Culture - Preliminary Resulted Blood Peripheral Staph Sp Coagulase Negative 01/13/17 21:56 Anaerobic Blood Culture - Preliminary Resulted Gram Positive Cocci 01/14/17 05:00 Gram Stain - Final Resulted Sputum Endotracheal 01/14/17 05:00 Sputum Culture - Preliminary Resulted Gram Negative [facility] Last Impressions Chest X-Ray 01/15/17 0600 Signed Impressions: Service Date/Time: Sunday, January 15, 2017 04:12 - CONCLUSION: Increased density the left chest infiltrate versus asymmetric failure. Multiple healed left-sided rib fractures. Tahir Worley MD Upper Extremity Ultrasound 01/14/17 0000 Signed Impressions: Service Date/Time: Saturday, January 14, 2017 15:01 - CONCLUSION: Thrombus is seen within the right cephalic vein. Lela Stephens MD Lower Extremity Ultrasound 01/14/17 0000 Signed Impressions: Service Date/Time: Saturday, January 14, 2017 14:44 - CONCLUSION: No evidence of deep venous thrombosis within the lower extremities. Christian Antoine MD Brain MRI 01/13/17 0000 Signed Impressions: Service Date/Time: Friday, January 13, 2017 10:49 - CONCLUSION: Chronic atrophic and small vessel ischemic changes, encephalomalacia left frontal lobe chronic mastoiditis without any evidence for acute hemorrhage or mass effect. Lela Stephens MD Chest CT 01/02/17 1645 Signed Impressions: Service Date/Time: Monday, January 02, 2017 22:10 - CONCLUSION: 1. Acute development of bilateral airspace disease as above with some peripheral sparing , especially at the bases. Findings nonspecific. Patient may be developing ARDS/diffuse alveolar damage. Other considerations include infection and severe hypersensitivity type reaction. 2. Endotracheal tube, nasogastric tube and left central line in satisfactory position. Christopher Lagos MD Head CT 01/02/17 0000 Signed Impressions: Service Date/Time: Monday, January 02, 2017 22:08 - CONCLUSION: Normal examination for a patient of this age. No significant change has occurred. Christopher Lagos MD Lower Extremity MRI 01/01/17 Signed Impressions: Service Date/Time: Sunday, January 01, 2017 20:03 - CONCLUSION: Subcutaneous soft tissue edema distal leg. No evidence of osteomyelitis of the tibia or fibula. Issa Christiansen MD Foot X-Ray 01/01/17 Signed Impressions: Service Date/Time: Sunday, January 01, 2017 04:49 - CONCLUSION: No acute abnormality. Prior left toe amputation. Issa Wills Jr., MD Foot MRI 01/01/17 Signed Impressions: Service Date/Time: Sunday, January 01, 2017 20:03 - CONCLUSION: 1. Prominent subcutaneous soft tissue edema about the foot and ankle. 2. Abnormal signal in the distal metatarsal head of the 4th digit, characterized by T1 and T2 prolongation. Differential considerations include healing fracture and osteomyelitis. 3. Probable Aburto's neuroma in the interspace between the distal 2nd and 3rd metatarsal bones. Issa Christiansen MD Abdomen/Pelvis CT [id number]/31/161938 Signed Impressions: Service Date/Time: Saturday, December 31, 2016 22:46 - CONCLUSION: 1. No acute abnormality to explain the patient's pain. 2. Colonic diverticulosis. No acute inflammation. 3. Suspected small calcified gallstone. The gallbladder is nondilated. 4. 4.2 cm left adrenal gland adenoma. Issa Wills Jr., MD Abdomen X-Ray 12/31/16 Signed Impressions: Service Date/Time: Saturday, December 31, 2016 19:25 - CONCLUSION: Unremarkable study except for stool. Lela Stephens MD Physical Exam CONSTITUTIONAL/GENERAL: This is an obese patient, in no apparent distress. TUBES/LINES/DRAINS: SKIN: No jaundice, rashes, or lesions. HEAD: Atraumatic. Normocephalic. EYES: Pupils equal and round and reactive. Extraocular motions intact. No scleral icterus. No injection or drainage. Fundi not examined. ENT: Oral mucosae moist, dentition poor orally int'd NECK: Trachea midline. Supple, nontender. CARDIOVASCULAR: Regular rate and rhythm without murmurs, gallops, or rubs. No JVD. Peripheral pulses symmetric. RESPIRATORY/CHEST: Symmetric, unlabored respirations. Breath sounds equal bilaterally. GASTROINTESTINAL: Abdomen soft, non-tender, nondistended. Bowel sounds present. GENITOURINARY: Without palpable bladder distension. Saunders catheter in place with slightly cloudy yellow urine MUSCULOSKELETAL: Extremities without clubbing, cyanosis, or edema. NEUROLOGICAL: eyes closed, no verbal response moves spontaneously all extremeties PSYCHIATRIC: unable to assess Foot no s.o active infection such as erythema, warmth. Assessment & Plan Remarks Septic shock likely secondary to aspiration pneumonia, resolved. Fever: likely 2/2 PNA Aspiration PNA - growing GNB Obstructive uropathy and ARF on presentation - saunders placed on admission Low grade coag neg staph bacteremia ? clin significance Acute renal failurelikely post obstructive Rhabdomyolysis Acute urinary retention Left heel chronic diabetic ulcer, no e/o osteo of L heel sp b/s debridement - growing enterococcus along with skin ricky from surface clx ; doubt clin significance - this is likely not the source of pt possible sepsis Hypoxia with new infiltrates ? ARDS ? 2/2 sepsis vs aspiration pneumonitis Persistent low grade fever right cephalic vein trombosis - also can contribute to fever Recs continue Vanco IV and Zosyn IV for now. Doppler UE and LE to r/o DVT. Follow cultures. Follow clinically. Mi Ospina MD Jan 15, 2017 22:25
[2017-01-16] VITALS (15 sets, daily range): BP systolic 145–153; BP diastolic 78–86; PULSE 61–101; RESP 15–23; TEMP 98.1–100.9; O2SAT 93–100
[2017-01-16] MEDS: INSULIN NovoLIN REGULAR SUPPLEMENTAL SCALE SQ SCH ×7 (00:43→23:00)
[2017-01-16] MEDS: 1/2 NS + KCL 20 MEQ INJ 1,000 ML IV SCH (02:20)
[2017-01-16] MEDS: RESP: ALBUTEROL 2.5 MG/IPRATROPIUM 0.5 MG NEB (SCH) NEB ×4 (03:53→20:17)
[2017-01-16 05:15] LABS: HEMATOCRIT 33.5 % (39.0-51.0); MEAN CELL VOLUME 100.2 FL (80.0-100.0); MEAN CORPUSCULAR HEMOGLOBIN 33.1 PG (27.0-34.0); PLATELET COUNT 693 TH/MM3 (150-450); RED BLOOD COUNT 3.35 MIL/MM3 (4.50-5.90); RED CELL DISTRIBUTION WIDTH 13.9 % (11.6-17.2); WHITE BLOOD COUNT 19.6 TH/MM3 (4.0-11.0)
[2017-01-16 05:16] LABS: REVIEW FLAG FINAL
[2017-01-16] MEDS: cloNIDine HCL 0.2 MG TAB PO SCH ×3 (05:35→20:56)
[2017-01-16] MEDS: ARTIFICIAL TEARS OPTH SOLN 15 ML BTL EACH EYE SCH ×3 (05:35→20:56)
[2017-01-16] MEDS: PIPERACIL-TAZO 4.5 GM PREMIX 100 ML IV SCH ×2 (05:35→13:03)
[2017-01-16] MEDS: HEPARIN SODIUM - SQ 10,000 UNITS/ML VIAL SQ SCH ×3 (05:36→20:56)
[2017-01-16 05:40] LABS: BICARBONATE 25.6 MEQ/L (21.0-32.0); POTASSIUM 3.7 MEQ/L (3.5-5.1)
[2017-01-16] MEDS: CHLORHEXIDINE 0.12% (ORAL KIT) 15 ML CUP MT SCH ×2 (08:00→20:00)
[2017-01-16] MEDS: THIAMINE HCL 100 MG TAB PO SCH (09:11)
[2017-01-16] MEDS: MULTIVITAMIN TAB PO SCH (09:11)
[2017-01-16] MEDS: LACTULOSE SYRUP 20 GM/30 ML CUP PO SCH (09:11)
[2017-01-16] MEDS: ASPIRIN 81 MG CHEW TAB PO SCH (09:11)
[2017-01-16] MEDS: SENNOSIDES SYRUP 8.8 MG/5 ML CUP PO SCH ×2 (09:12→20:56)
[2017-01-16] MEDS: SODIUM CHLORIDE 0.9% FLUSH 10 ML FLUSH IV FLUSH SCH ×2 (09:12→20:56)
[2017-01-16] MEDS: DOCUSATE SODIUM 100 MG/10 ML UDC PO SCH ×2 (09:12→20:56)
[2017-01-16] MEDS: COLLAGENASE OINT 30 GM TUBE TOPICAL SCH (09:18)
[2017-01-16] MEDS: DEXMEDETOMIDINE INJ 1,000 MCG in SODIUM CHLOR 0.9% 250 ML INJ 240 ML IV SCH (09:28)
--- NOTE | 2017-01-16 11:59 | HHI.NPPN ---
Subjective History of Present Illness 56 year old with ARF sepsis left heel ulcer Additional Remarks Patient is extubated, lethargic. Review of Systems General Constitutional: Fatigue Objective Data Data 01/15/17 01/16/17 19:00 07:00 Intake Total 846 ml 1706 ml Output Total 1000 ml 1325 ml Balance -154 ml 381 ml Intake Oral 0 ml IV Total 846 ml 1706 ml Output Urine Total 1000 ml 1325 ml # Bowel Movements 1 0 Vital Signs Date Time Temp Pulse Resp B/P Pulse Ox O2 Delivery O2 Flow Rate FiO2 01/16/17 08:12 100 Nasal Cannula 4.00 01/16/17 07:47 98.1 01/16/17 06:00 65 01/16/17 04:00 61 01/16/17 04:00 98.3 61 15 147/78 100 01/16/17 02:00 79 01/16/17 00:00 100.9 101 23 145/79 93 01/16/17 00:00 101 01/15/17 22:00 108 01/15/17 21:52 96 Venturi Mask 6.00 40 01/15/17 20:00 95 01/15/17 20:00 101.1 95 23 140/72 99 01/15/17 18:00 93 01/15/17 16:00 90 01/15/17 16:00 100.9 103 17 146/78 94 01/15/17 14:00 86 01/15/17 12:00 99.3 118 18 134/77 93 01/15/17 12:00 85 -: 01/16/17 0345 01/16/17 0345 Microbiology 01/16/17 Aerobic Blood Culture, Received Pending 01/16/17 Anaerobic Blood Culture, Received Pending 01/16/17 Aerobic Blood Culture, Received Pending 01/16/17 Anaerobic Blood Culture, Received Pending Physical Exam General Appearance: No Acute Distress, Anxious Neck Neck Exam: Neck Supple Pulmonary Resp Exam: Clear Bilaterally Cardiology CV Exam: Regular, Normal Sinus Rhythm Gastrointestinal/Abdomen GI Exam: Soft, Non-Tender, Bowel Sounds Present Extremeties Extremities Exam: Trace Edema Neurologic Neuro Exam: Obtunded Assessment/Plan Problem List: (1) Acute renal failure Plan: BIMAL with ATN Creatinine pending with increasing UOP Good response to bumex 1mg IV q 12 K replace as on diuretic last cr 1.7 UOP 3.2 L CHF Echocardiogram for LV EF 55-60% Diastolic dysfunction On vancomycin and zosyn per ID Caution with vancomycin - continue to closely monitor levels Creatinine at same level. Na. increased, added free water. (2) Sepsis Plan: Patient is on Vanco/Zosyn - left heel ulcer showing a growth of group D enterococcus Continue to follow with ID (3) DM (diabetes mellitus) Plan: Follow blood glucose (4) Rhabdomyolysis Plan: resolved (5) Bladder outlet obstruction Plan: Chamorro catheter is in place (6) Metabolic acidosis Plan: resolved Problem Qualifiers (1) Acute renal failure: Qualified Code: N17.0 - Acute renal failure with tubular necrosis (2) Sepsis: Qualified Code: A41.9 - Sepsis, due to unspecified organism (3) Rhabdomyolysis: Qualified Code: M62.82 - Non-traumatic rhabdomyolysis Zuri Sadler MD Jan 16, 2017 11:59
[2017-01-16] MEDS: VANCOMYCIN INJ 1,500 MG in SODIUM CHLORID 0.9% 500 ML INJ 500 ML IV SCH (13:03)
--- NOTE | 2017-01-16 15:33 | HHI.CCPN ---
Subjective Remarks/Hospital Course This is a 56-year-old male who originally came into the emergency department with his left foot wound. He was admitted for IV antibiotics and cellulitis, possible osteomyelitis of the foot. He was seen by Dr. Ospina with infectious disease who felt that this was likely chronic osteo and not acute. Overnight last night he became acutely delirious, and has a very strong alcohol history, and was thought most likely to be an alcohol withdrawal. He was given Ativan. This morning, he was much more somnolent. This afternoon a rapid response was called because the patient was unresponsive. When I arrived, the patient had a oxygen saturation of 30% with a good plethysmograph waveform. He was emergently transferred to the ICU and intubated. He had a chest x-ray showing bilateral pulmonary protrudes in all lobes, more suggestive of ARDS. The patient was tachycardic, febrile, very septic appearing. He is toxic. Unfortunately, the patient is unresponsive and cannot provide any additional history. 01/03: remains intubated, sedated. persistent bilateral infiltrates. likely ARDS. remains on vasopressors. 01/04: Continued to spike fever 101.3 Tmax. Chest x-ray shows continued bilateral infiltrates/ARDS. Remains on Levophed at 4 mics per minute. Currently on Zosyn and micafungin, vancomycin added for additional gram- positive coverage 01/05: Continues to be hypoxemic currently on FiO2 65%. Chest x-ray shows worsening bilateral pulmonary edema. Fever trending down currently on vancomycin Zosyn and micafungin. Azithromycin added for atypical coverage. I will also increase PEEP to 12, stop IV fluids and give 2 mg IV Bumex 01/06: FiO2 down to 45%. PEEP remains at 12. 2.8 L urine output creatinine slightly improved to 1.8. Received 2 mg Bumex yesterday, nephrology has started scheduled Bumex 1 mg every 12 today. Chest x-ray shows persistent ARDS/ pulmonary edema 01/07: net euvolemic overnight. clinically appears volume overloaded still. failed CPAP for tachypnea yesterday. afebrile. oxygenation stable. 01/08: net euvolemic overnight again. still volume overloaded. Cr slightly elevated. metabolic alkalosis persists. 01/09: FiO2 down to 45%, achieving negative fluid balance. Urine output more than 4 L. Creatinine remained stable 01/10:: Patient remains on 45% oxygen and PEEP of 8, heavily sedated with propofol fentanyl and Precedex. Warren fever of 102. Hemodynamically stable 01/11: Maintaining oxygenation on the PEEP of 8 and FiO2 35%. Otherwise remains sedated with Precedex and fentanyl. Highest temperature was yesterday before noon 102 no fever now. WBC count is slightly improved. Patient is being observed off antibiotics today 01/12: Currently on PSV trial with PEEP of 8. Tmax 100.8. Positive BM 2. 01/13: Afebrile. Still not responsive. MRI brain/EEG ordered. Tolerating tube feeds. Positive BM. Tolerating PSV trials x 12 hours yesterday. 01/14: Tmax 100.8. Currently 99.8. Restarted antibiotics. Panculture. Tolerating PSV trials but not waking up and falling commands. MRI brain negative. EEG negative. 01/15: Tmax 101.6. Currently 100.1. Self extubated overnight. Currently on room air. Arousable but nonverbal. Protecting airway Not verbal. MRI brain showed no acute signs of CVA or hemorrhage/EEG negative. Subjective: 01/16: Tmax 101.1. Currently 99.3. On 4 L nasal cannula. Mouth is open. Passed swallow evaluation. Nods head appropriately to questions. Objective Vital Signs Date Time Temp Pulse Resp B/P Pulse Ox O2 Delivery O2 Flow Rate FiO2 01/16/17 12:00 99.3 82 19 153/80 97 01/16/17 08:12 Nasal Cannula 4.01/15/17 21:52 40 Intake and Output 01/15/17 01/15/17 01/16/17 08:00 16:00 00:00 Intake Total 207 ml 846 ml 1074 ml Output Total 550 ml 1000 ml 950 ml Balance -343 ml -154 ml 124 ml Result Diagram: 01/16/17 0345 01/16/17 0345 Other Results Microbiology Date/Time Procedure Status Source Growth 01/16/17 03:51 Aerobic Blood Culture Received Blood Peripheral Pending 01/16/17 03:51 Anaerobic Blood Culture Received Blood Peripheral Pending 01/14/17 05:00 Gram Stain - Final Complete Sputum Endotracheal 01/14/17 05:00 Sputum Culture - Final Complete Klebsiella Pneumoniae Esbl Pos 01/13/17 21:56 Aerobic Blood Culture - Final Complete Blood Peripheral Staph Sp Coagulase Negative 01/13/17 21:56 Anaerobic Blood Culture - Final Complete Staphylococcus Epidermidis 01/13/17 21:45 Aerobic Blood Culture - Preliminary Resulted Blood Peripheral NO GROWTH IN 3 DAYS 01/13/17 21:45 Anaerobic Blood Culture - Preliminary Resulted Blood Peripheral NO GROWTH IN 3 DAYS 01/13/17 12:30 Influenza Types A,B Antigen (DREW) - Final Complete Nasal Washing NEGATIVE FOR FLU A AND B ANTIGEN.... Imaging Last Impressions Chest X-Ray 01/15/17 0600 Signed Impressions: Service Date/Time: Sunday, January 15, 2017 04:12 - CONCLUSION: Increased density the left chest infiltrate versus asymmetric failure. Multiple healed left-sided rib fractures. Tahir Worley MD Upper Extremity Ultrasound 01/14/17 0000 Signed Impressions: Service Date/Time: Saturday, January 14, 2017 15:01 - CONCLUSION: Thrombus is seen within the right cephalic vein. Lela Stephens MD Lower Extremity Ultrasound 01/14/17 0000 Signed Impressions: Service Date/Time: Saturday, January 14, 2017 14:44 - CONCLUSION: No evidence of deep venous thrombosis within the lower extremities. Christian Antoine MD Brain MRI 01/13/17 0000 Signed Impressions: Service Date/Time: Friday, January 13, 2017 10:49 - CONCLUSION: Chronic atrophic and small vessel ischemic changes, encephalomalacia left frontal lobe chronic mastoiditis without any evidence for acute hemorrhage or mass effect. Lela Stephens MD Chest CT 01/02/17 1645 Signed Impressions: Service Date/Time: Monday, January 02, 2017 22:10 - CONCLUSION: 1. Acute development of bilateral airspace disease as above with some peripheral sparing , especially at the bases. Findings nonspecific. Patient may be developing ARDS/diffuse alveolar damage. Other considerations include infection and severe hypersensitivity type reaction. 2. Endotracheal tube, nasogastric tube and left central line in satisfactory position. Christopher Lagos MD Head CT 01/02/17 0000 Signed Impressions: Service Date/Time: Monday, January 02, 2017 22:08 - CONCLUSION: Normal examination for a patient of this age. No significant change has occurred. Christopher Lagos MD Lower Extremity MRI 01/01/17 0000 Signed Impressions: Service Date/Time: Sunday, January 01, 2017 20:03 - CONCLUSION: Subcutaneous soft tissue edema distal leg. No evidence of osteomyelitis of the tibia or fibula. Issa Christiansen MD Foot X-Ray 01/01/17 0000 Signed Impressions: Service Date/Time: Sunday, January 01, 2017 04:49 - CONCLUSION: No acute abnormality. Prior left toe amputation. Issa Wills Jr., MD Foot MRI 01/01/17 Signed Impressions: Service Date/Time: Sunday, January 01, 2017 20:03 - CONCLUSION: 1. Prominent subcutaneous soft tissue edema about the foot and ankle. 2. Abnormal signal in the distal metatarsal head of the 4th digit, characterized by T1 and T2 prolongation. Differential considerations include healing fracture and osteomyelitis. 3. Probable Aburto's neuroma in the interspace between the distal 2nd and 3rd metatarsal bones. Issa Christiansen MD Abdomen/Pelvis CT 12/31/161938 Signed Impressions: Service Date/Time: Saturday, December 31, 2016 22:46 - CONCLUSION: 1. No acute abnormality to explain the patient's pain. 2. Colonic diverticulosis. No acute inflammation. 3. Suspected small calcified gallstone. The gallbladder is nondilated. 4. 4.2 cm left adrenal gland adenoma. Issa Wills Jr., MD Abdomen X-Ray 12/31/16 Signed Impressions: Service Date/Time: Saturday, December 31, 2016 19:25 - CONCLUSION: Unremarkable study except for stool. Lela Stephens MD Objective Remarks GENERAL: 56-year-old male, lying in bed in no acute distress HEENT: NC/1AT. Pupils equal, round, reactive, conjugate about 3 mm bilaterally. Mucous membranes are moist and pink. Oropharynx without erythema or exudates NECK: Obese neck. No thyromegaly or lymphadenopathy. CHEST: Diminished breath sounds bilaterally. Few crackles appreciated throughout all lung aguirre. No wheezing. CARDIOVASCULAR: RRR. S1, S2 no S4 without murmur ABDOMEN: Obese, soft, nontender, nondistended. No guarding. Hypoactive bowel sounds appreciated MUSCULOSKELETAL: 1+ peripheral edema. Distal pulses 2+. There is a small area on his left heel with a nonhealing ulcer. NEUROLOGICAL: Able to move all 4 extremities spontaneously but weakly. Stares at you A/P Assessment and Plan Neuro/Psych: Post traumatic stress disorder Metabolic encephalopathy Alcohol withdrawal Agitated delirium Chronic narcotic use Precedex drip currently at 0.5 mcg/kg per hour. Wean as tolerated Scheduled Ativan 1 mg by mouth every 8 hours - hold with altered mental status Seroquel 50mg po q8hr - hold with altered mental status Off morphine sulfate 60 mg twice a day and oxycodone 30 mg twice a day/home medication Off Lyrica 150 milligrams by mouth twice a day IV thiamine, multivitamin and folate 01/13 MRI brain was negative for acute intracranial findings/EEG showed moderate to severe encephalopathy with norepinephrine activity. Negative CT head 01/02 ammonia 20 on 01/02. 37 01/13. We'll recheck in a.m. 01/17 Respiratory: Acute hypoxic respiratory failure ARDS Aspiration pneumonitis History of COPD Nasal cannula to maintain saturations greater than equal to 92% Incentive spirometry while awake Bronchodilator therapy every 6 hours and as needed Head of bed at 30 Self extubated 01/14 Cardiovascular: Sinus tachycardia- resolving. Septic shock-resolved Hypertension Grade 2 diastolic dysfunction Off lisinopril 5 mill grams by mouth daily/home medication Currently on clonidine 0.3 mg 3 times a day. Will decrease 0.2 no grams daily and add clonidine patch while nothing by mouth Echo 01/09 revealed EF 55-60%. No regional wall motion abnormality. Grade 2 diastolic dysfunction. Renal: Acute kidney injury Likely prerenal/ATN secondary to sepsis. Strict I/Os, Chamorro Every hour urine outputs Creat continues to improve Nephrology signed off FEN/GI: Acute protein calorie malnutritionmild Hyperammonia Trend BMP Protonix 40 mg IV q24 Colace twice a day/Senokot twice a day and lactulose twice a day for bowel regimen. Heme/ID: Left foot nonhealing ulceration Septic shock- resolved. History of splenectomy Thrombocytosis Right Cephalic superficial venous thrombus Continue aspirin 81 mg daily for thrombocytosis likely secondary splenectomy. Slowly resolving Continue heparin 5000 every 8 for superficial upper extremity thrombus 01/16 - blood cultures 2 - no growth 01/14 - sputum -ESBL positive Klebsiella 01/13 - blood cultures 2 14: Negative//MRSA 01/10/17 blood cultures 2 negative 01/02 sputum: NGTD 01/02 blood: NGTD 01/02 urine: NGTD. 01/02 heel wound culture enterococcus sensitive to ampicillin Daily and Zosyn/vancomycin. Will likely need carbapenem for ESBL positive Klebsiella sputum but will defer to infectious disease physician currently following. ID: Dr. Ospina following Santyl daily for foot ulcer Endocrine: Diabetes Hyperglycemia of critical illness -- SSI, medium scale, every 6 Holding Janumet one tablet twice a day and glyburide 10 mg by mouth twice a day MSK: Left second toe amputation No acute issues Prophylaxis: GI Prophylaxis Protonix DVT Prophylaxis --SCDs Subcutaneous heparin 5000 units 3 times a day Critical Care: The total critical care time was 35 minutes. Time to perform other separately billable procedures was not included in the critical care time. Cleveland Vera MD Jan 16, 2017 15:33
[2017-01-16] MEDS: SODIUM CHLORIDE 23.4% INJ 38.5 MEQ in WATER STERILE FOR INJ 1,000 ML IV SCH (16:52)
--- NOTE | 2017-01-16 17:03 | HHI.IDPN ---
Subjective Subjective Remarks Delayed entey - pt was seen around 1630 Events noted Tolerating self extubation currently on venti mask Off pressors cont to have fevers up to 101 No rash growing GNB in sputum and coag neg staph in one set of blood clx Antibiotics zosyn vanco Lines Line sites ok. Past Medical History BM, ETOHism tobaccoism Allergies: Coded Allergies: Toradol (Verified Allergy, Intermediate, Headache, 12/31/16) Objective . Vital Signs Date Time Temp Pulse Resp B/P Pulse Ox O2 Delivery O2 Flow Rate FiO2 01/16/17 12:00 99.3 82 19 153/80 97 01/16/17 08:12 100 Nasal Cannula 4.00 01/16/17 08:00 68 22 148/83 100 01/16/17 07:47 98.1 01/16/17 06:00 65 01/16/17 04:00 61 01/16/17 04:00 98.3 61 15 147/78 100 01/16/17 02:00 79 01/16/17 00:00 100.9 101 23 145/79 93 01/16/17 00:00 101 01/15/17 22:00 108 01/15/17 21:52 96 Venturi Mask 6.00 40 01/15/17 20:00 95 01/15/17 20:00 101.1 95 23 140/72 99 01/15/17 18:00 93 01/15/17 01/15/17 01/16/17 15:00 23:00 07:00 Intake Total 846 ml 1074 ml 632 ml Output Total 1000 ml 950 ml 375 ml Balance -154 ml 124 ml 257 ml Intake Oral 0 ml 0 ml IV Total 846 ml 1074 ml 632 ml Output Urine Total 1000 ml 950 ml 375 ml # Bowel Movements 1 0 0 . Laboratory Tests Test 01/15/17 01/16/17 03:24 03:45 White Blood Count 15.6 TH/MM3 19.6 TH/MM3 Red Blood Count 3.57 MIL/MM3 3.35 MIL/MM3 Hemoglobin 11.4 GM/DL 11.1 GM/DL Hematocrit 35.4 % 33.5 % Mean Corpuscular Volume 99.4 FL 100.2 FL Mean Corpuscular Hemoglobin 32.0 PG 33.1 PG Mean Corpuscular Hemoglobin 32.2 % 33.0 % Concent Red Cell Distribution Width 13.8 % 13.9 % Platelet Count 688 TH/MM3 693 TH/MM3 Mean Platelet Volume 10.0 FL 10.6 FL Neutrophils (%) (Auto) 68.0 % Lymphocytes (%) (Auto) 20.5 % Monocytes (%) (Auto) 8.5 % Eosinophils (%) (Auto) 1.6 % Basophils (%) (Auto) 1.4 % Neutrophils # (Auto) 10.6 TH/MM3 Lymphocytes # (Auto) 3.2 TH/MM3 Monocytes # (Auto) 1.3 TH/MM3 Eosinophils # (Auto) 0.3 TH/MM3 Basophils # (Auto) 0.2 TH/MM3 CBC Comment DIFF FINAL Differential Comment Laboratory Tests Test 01/15/17 01/16/17 03:24 03:45 Sodium Level 151 MEQ/L 156 MEQ/L Potassium Level 3.8 MEQ/L 3.7 MEQ/L Chloride Level 116 MEQ/L 120 MEQ/L Carbon Dioxide Level 25.2 MEQ/L 25.6 MEQ/L Anion Gap 10 MEQ/L 10 MEQ/L Blood Urea Nitrogen 61 MG/DL 53 MG/DL Creatinine 1.85 MG/DL 1.81 MG/DL Estimat Glomerular Filtration 38 ML/MIN 39 ML/MIN Rate Random Glucose 274 MG/DL 241 MG/DL Calcium Level 9.4 MG/DL 9.9 MG/DL Phosphorus Level 3.7 MG/DL Magnesium Level 2.6 MG/DL Total Bilirubin 0.5 MG/DL Aspartate Amino Transf 11 U/L (AST/SGOT) Alanine Aminotransferase 12 U/L (ALT/SGPT) Alkaline Phosphatase 90 U/L Total Creatine Kinase 116 U/L Total Protein 8.0 GM/DL Albumin 3.0 GM/DL Microbiology Date/Time Procedure Status Source Growth 01/13/17 21:45 Aerobic Blood Culture - Preliminary Resulted Blood Peripheral NO GROWTH IN 3 DAYS 01/13/17 21:45 Anaerobic Blood Culture - Preliminary Resulted Blood Peripheral NO GROWTH IN 3 DAYS 01/13/17 21:56 Aerobic Blood Culture - Final Complete Blood Peripheral Staph Sp Coagulase Negative 01/13/17 21:56 Anaerobic Blood Culture - Final Complete Staphylococcus Epidermidis 01/14/17 05:00 Gram Stain - Final Complete Sputum Endotracheal 01/14/17 05:00 Sputum Culture - Final Complete Klebsiella Pneumoniae Esbl Pos 01/16/17 03:45 Aerobic Blood Culture Received Blood Peripheral Pending 01/16/17 03:45 Anaerobic Blood Culture Received Blood Peripheral Pending 01/16/17 03:51 Aerobic Blood Culture Received Blood Peripheral Pending 01/16/17 03:51 Anaerobic Blood Culture Received Blood Peripheral Pending Imaging Last Impressions Chest X-Ray 01/15/17 0600 Signed Impressions: Service Date/Time: Sunday, January 15, 2017 04:12 - CONCLUSION: Increased density the left chest infiltrate versus asymmetric failure. Multiple healed left-sided rib fractures. Tahir Worley MD Upper Extremity Ultrasound 01/14/17 0000 Signed Impressions: Service Date/Time: Saturday, January 14, 2017 15:01 - CONCLUSION: Thrombus is seen within the right cephalic vein. Lela Stephens MD Lower Extremity Ultrasound 01/14/17 0000 Signed Impressions: Service Date/Time: Saturday, January 14, 2017 14:44 - CONCLUSION: No evidence of deep venous thrombosis within the lower extremities. Christian Antoine MD Brain MRI 01/13/17 0000 Signed Impressions: Service Date/Time: Friday, January 13, 2017 10:49 - CONCLUSION: Chronic atrophic and small vessel ischemic changes, encephalomalacia left frontal lobe chronic mastoiditis without any evidence for acute hemorrhage or mass effect. Lela Stephens MD Chest CT 01/02/17 1645 Signed Impressions: Service Date/Time: Monday, January 02, 2017 22:10 - CONCLUSION: 1. Acute development of bilateral airspace disease as above with some peripheral sparing , especially at the bases. Findings nonspecific. Patient may be developing ARDS/diffuse alveolar damage. Other considerations include infection and severe hypersensitivity type reaction. 2. Endotracheal tube, nasogastric tube and left central line in satisfactory position. Christopher Lagos MD Head CT 01/02/17 Signed Impressions: Service Date/Time: Monday, January 02, 2017 22:08 - CONCLUSION: Normal examination for a patient of this age. No significant change has occurred. Christopher Lagos MD Lower Extremity MRI 01/01/17 0000 Signed Impressions: Service Date/Time: Sunday, January 01, 2017 20:03 - CONCLUSION: Subcutaneous soft tissue edema distal leg. No evidence of osteomyelitis of the tibia or fibula. Issa Christiansen MD Foot X-Ray 01/01/17 0000 Signed Impressions: Service Date/Time: Sunday, January 01, 2017 04:49 - CONCLUSION: No acute abnormality. Prior left toe amputation. Issa Wills Jr., MD Foot MRI 01/01/17 0000 Signed Impressions: Service Date/Time: Sunday, January 01, 2017 20:03 - CONCLUSION: 1. Prominent subcutaneous soft tissue edema about the foot and ankle. 2. Abnormal signal in the distal metatarsal head of the 4th digit, characterized by T1 and T2 prolongation. Differential considerations include healing fracture and osteomyelitis. 3. Probable Aburto's neuroma in the interspace between the distal 2nd and 3rd metatarsal bones. Issa Christiansen MD Abdomen/Pelvis CT 12/31/161938 Signed Impressions: Service Date/Time: Saturday, December 31, 2016 22:46 - CONCLUSION: 1. No acute abnormality to explain the patient's pain. 2. Colonic diverticulosis. No acute inflammation. 3. Suspected small calcified gallstone. The gallbladder is nondilated. 4. 4.2 cm left adrenal gland adenoma. Issa Wills Jr., MD Abdomen X-Ray 12/31/16 0000 Signed Impressions: Service Date/Time: Saturday, December 31, 2016 19:25 - CONCLUSION: Unremarkable study except for stool. Lela Stephens MD Physical Exam CONSTITUTIONAL/GENERAL: This is an obese patient, in no apparent distress. TUBES/LINES/DRAINS: SKIN: No jaundice, rashes, or lesions. HEAD: Atraumatic. Normocephalic. EYES: Pupils equal and round and reactive. Extraocular motions intact. No scleral icterus. No injection or drainage. Fundi not examined. ENT: Oral mucosae moist, dentition poor orally int'd NECK: Trachea midline. Supple, nontender. CARDIOVASCULAR: Regular rate and rhythm without murmurs, gallops, or rubs. No JVD. Peripheral pulses symmetric. RESPIRATORY/CHEST: Symmetric, unlabored respirations. Breath sounds equal bilaterally. GASTROINTESTINAL: Abdomen soft, non-tender, nondistended. Bowel sounds present. GENITOURINARY: Without palpable bladder distension. Saunders catheter in place with clear yellow urine MUSCULOSKELETAL: Extremities without clubbing, cyanosis, or edema. NEUROLOGICAL: eyes opened, makes eye contact , no verbal response moves spontaneously all extremeties PSYCHIATRIC: unable to assess Foot no s.o active infection such as erythema, warmth. Assessment & Plan Remarks Septic shock likely secondary to aspiration pneumonia, resolved. Fever: likely 2/2 PNA Aspiration PNA - growing ESBL + Kleb pneumo Obstructive uropathy and ARF on presentation - saunders placed on admission Low grade coag neg staph bacteremia - doubt clin significance CULTURE GROWING STAPH SP COAGULASE NEGATIVE X 2 Acute renal failurelikely post obstructive Acute urinary retention on admission Left heel chronic diabetic ulcer, no e/o osteo of L heel sp b/s debridement - growing enterococcus along with skin ricky from surface clx ; doubt clin significance - this is likely not the source of pt possible sepsis Persistent low grade fever Woorsening leukocytosis right cephalic vein trombosis - also can contribute to fever Recs dc Vanco IV dc Zosyn IV Start Ertapenem for ESBL+ Kleb pneumo x 7days Follow WBC Follow clinically. Mi Ospina MD Jan 16, 2017 17:03
[2017-01-16] MEDS ORDERED: ASP: Documented ESBL, MDR A baumannii or P. aeruginosa PRN (17:15)
[2017-01-16] MEDS ORDERED: MISCELLANEOUS PHARMACY INFORMATION XX PRN (17:15)
[2017-01-16] MEDS: FREE WATER G-TUBE SCH ×2 (18:00→23:00)
[2017-01-16] MEDS: ERTAPENEM INJ 1,000 MG in SODIUM CHLORIDE 0.9% INJ 100 ML IV SCH (18:20)
[2017-01-16] MEDS: PANTOPRAZOLE SODIUM 40 MG VIAL IV PUSH SCH (20:55)
[2017-01-17] VITALS (14 sets, daily range): BP systolic 149–177; BP diastolic 76–91; PULSE 65–118; RESP 21–25; TEMP 97.9–100.4; O2SAT 93–98
[2017-01-17] MEDS: SODIUM CHLORIDE 23.4% INJ 38.5 MEQ in WATER STERILE FOR INJ 1,000 ML IV SCH ×4 (02:22→21:49)
[2017-01-17] MEDS: RESP: ALBUTEROL 2.5 MG/IPRATROPIUM 0.5 MG NEB (SCH) NEB ×4 (03:14→19:49)
[2017-01-17] MEDS: INSULIN NovoLIN REGULAR SUPPLEMENTAL SCALE SQ SCH ×5 (04:00→20:00)
[2017-01-17] MEDS: FREE WATER G-TUBE SCH ×3 (05:03→17:38)
[2017-01-17] MEDS: cloNIDine HCL 0.2 MG TAB PO SCH ×3 (05:04→21:49)
[2017-01-17] MEDS: ARTIFICIAL TEARS OPTH SOLN 15 ML BTL EACH EYE SCH ×3 (05:04→21:49)
[2017-01-17] MEDS: HEPARIN SODIUM - SQ 10,000 UNITS/ML VIAL SQ SCH ×3 (05:04→21:49)
[2017-01-17 06:25] LABS: AUTOMATED NEUTROPHIL # 10.6 TH/MM3 (1.8-7.7); BASOPHIL # 0.3 TH/MM3 (0-0.2); BASOPHIL % 1.8 % (0.0-2.0); EOSINOPHIL % 5.8 % (0.0-4.0); HEMATOCRIT 32.3 % (39.0-51.0); HEMO FLAGS DIFF FINAL; LYMPH % 20.8 % (9.0-44.0); LYMPHOCYTE # 3.4 TH/MM3 (1.0-4.8); MONO % 7.5 % (0.0-8.0); NEUT % 64.1 % (16.0-70.0); PLATELET COUNT 734 TH/MM3 (150-450); RED BLOOD COUNT 3.23 MIL/MM3 (4.50-5.90); RED CELL DISTRIBUTION WIDTH 13.5 % (11.6-17.2); WHITE BLOOD COUNT 16.5 TH/MM3 (4.0-11.0)
[2017-01-17 06:30] LABS: BICARBONATE 21.1 MEQ/L (21.0-32.0); MAGNESIUM 2.2 MG/DL (1.5-2.5); POTASSIUM 3.3 MEQ/L (3.5-5.1)
[2017-01-17] MEDS: CHLORHEXIDINE 0.12% (ORAL KIT) 15 ML CUP MT SCH ×2 (07:25→20:00)
[2017-01-17] MEDS: SODIUM CHLORIDE 0.9% FLUSH 10 ML FLUSH IV FLUSH SCH ×2 (09:00→21:49)
[2017-01-17] MEDS: SENNOSIDES SYRUP 8.8 MG/5 ML CUP PO SCH ×2 (09:14→21:00)
[2017-01-17] MEDS: DOCUSATE SODIUM 100 MG/10 ML UDC PO SCH ×2 (09:14→21:00)
[2017-01-17] MEDS: LACTULOSE SYRUP 20 GM/30 ML CUP PO SCH (09:14)
[2017-01-17] MEDS: MULTIVITAMIN TAB PO SCH (09:14)
[2017-01-17] MEDS: THIAMINE HCL 100 MG TAB PO SCH (09:14)
[2017-01-17] MEDS: COLLAGENASE OINT 30 GM TUBE TOPICAL SCH (09:15)
[2017-01-17] MEDS: ASPIRIN 81 MG CHEW TAB PO SCH (09:15)
[2017-01-17] MEDS ORDERED: PHARMACY ORDERED LAB ONE (11:45)
[2017-01-17] MEDS ORDERED: POTASSIUM CHLORIDE 20 MEQ CONTROLLED RELEASE TAB PO ONE (13:00)
[2017-01-17] MEDS ORDERED: POTASSIUM CHLORIDE 20 MEQ PWD PACKET PO ONE (14:30)
--- NOTE | 2017-01-17 14:52 | HHI.CCPN ---
Subjective Remarks/Hospital Course This is a 56-year-old male who originally came into the emergency department with his left foot wound. He was admitted for IV antibiotics and cellulitis, possible osteomyelitis of the foot. He was seen by Dr. Ospina with infectious disease who felt that this was likely chronic osteo and not acute. Overnight last night he became acutely delirious, and has a very strong alcohol history, and was thought most likely to be an alcohol withdrawal. He was given Ativan. This morning, he was much more somnolent. This afternoon a rapid response was called because the patient was unresponsive. When I arrived, the patient had a oxygen saturation of 30% with a good plethysmograph waveform. He was emergently transferred to the ICU and intubated. He had a chest x-ray showing bilateral pulmonary protrudes in all lobes, more suggestive of ARDS. The patient was tachycardic, febrile, very septic appearing. He is toxic. Unfortunately, the patient is unresponsive and cannot provide any additional history. 01/03: remains intubated, sedated. persistent bilateral infiltrates. likely ARDS. remains on vasopressors. 01/04: Continued to spike fever 101.3 Tmax. Chest x-ray shows continued bilateral infiltrates/ARDS. Remains on Levophed at 4 mics per minute. Currently on Zosyn and micafungin, vancomycin added for additional gram- positive coverage 01/05: Continues to be hypoxemic currently on FiO2 65%. Chest x-ray shows worsening bilateral pulmonary edema. Fever trending down currently on vancomycin Zosyn and micafungin. Azithromycin added for atypical coverage. I will also increase PEEP to 12, stop IV fluids and give 2 mg IV Bumex 01/06: FiO2 down to 45%. PEEP remains at 12. 2.8 L urine output creatinine slightly improved to 1.8. Received 2 mg Bumex yesterday, nephrology has started scheduled Bumex 1 mg every 12 today. Chest x-ray shows persistent ARDS/ pulmonary edema 01/07: net euvolemic overnight. clinically appears volume overloaded still. failed CPAP for tachypnea yesterday. afebrile. oxygenation stable. 01/08: net euvolemic overnight again. still volume overloaded. Cr slightly elevated. metabolic alkalosis persists. 01/09: FiO2 down to 45%, achieving negative fluid balance. Urine output more than 4 L. Creatinine remained stable 01/10:: Patient remains on 45% oxygen and PEEP of 8, heavily sedated with propofol fentanyl and Precedex. Warren fever of 102. Hemodynamically stable 01/11: Maintaining oxygenation on the PEEP of 8 and FiO2 35%. Otherwise remains sedated with Precedex and fentanyl. Highest temperature was yesterday before noon 102 no fever now. WBC count is slightly improved. Patient is being observed off antibiotics today 01/12: Currently on PSV trial with PEEP of 8. Tmax 100.8. Positive BM 2. 01/13: Afebrile. Still not responsive. MRI brain/EEG ordered. Tolerating tube feeds. Positive BM. Tolerating PSV trials x 12 hours yesterday. 01/14: Tmax 100.8. Currently 99.8. Restarted antibiotics. Panculture. Tolerating PSV trials but not waking up and falling commands. MRI brain negative. EEG negative. 01/15: Tmax 101.6. Currently 100.1. Self extubated overnight. Currently on room air. Arousable but nonverbal. Protecting airway Not verbal. MRI brain showed no acute signs of CVA or hemorrhage/EEG negative. Subjective: 01/16: Tmax 101.1. Currently 99.3. On 4 L nasal cannula. Mouth is open. Passed swallow evaluation. Nods head appropriately to questions. 01/17: Breathing comfortably. Not following commands. Na 152, BUN creat improving. PT/OT ordered Objective Vital Signs Date Time Temp Pulse Resp B/P Pulse Ox O2 Delivery O2 Flow Rate FiO2 01/17/17 14:00 108 01/17/17 12:00 99.0 24 162/76 94 01/17/17 08:12 Nasal Cannula 2.00 01/15/17 21:52 40 Intake and Output 01/16/17 01/16/17 01/17/17 08:00 16:00 00:00 Intake Total 632 ml 1534 ml 1188 ml Output Total 375 ml 825 ml 650 ml Balance 257 ml 709 ml 538 ml Result Diagram: 01/17/17 0553 01/17/17 0553 Imaging Last Impressions Chest X-Ray 01/15/17 0600 Signed Impressions: Service Date/Time: Sunday, January 15, 2017 04:12 - CONCLUSION: Increased density the left chest infiltrate versus asymmetric failure. Multiple healed left-sided rib fractures. Tahir Worley MD Upper Extremity Ultrasound 01/14/17 Signed Impressions: Service Date/Time: Saturday, January 14, 2017 15:01 - CONCLUSION: Thrombus is seen within the right cephalic vein. Lela Stephens MD Lower Extremity Ultrasound 01/14/17 Signed Impressions: Service Date/Time: Saturday, January 14, 2017 14:44 - CONCLUSION: No evidence of deep venous thrombosis within the lower extremities. Christian Antoine MD Brain MRI 01/13/17 Signed Impressions: Service Date/Time: Friday, January 13, 2017 10:49 - CONCLUSION: Chronic atrophic and small vessel ischemic changes, encephalomalacia left frontal lobe chronic mastoiditis without any evidence for acute hemorrhage or mass effect. Lela Stephens MD Chest CT 01/02/17 1645 Signed Impressions: Service Date/Time: Monday, January 02, 2017 22:10 - CONCLUSION: 1. Acute development of bilateral airspace disease as above with some peripheral sparing , especially at the bases. Findings nonspecific. Patient may be developing ARDS/diffuse alveolar damage. Other considerations include infection and severe hypersensitivity type reaction. 2. Endotracheal tube, nasogastric tube and left central line in satisfactory position. Christopher Lagos MD Head CT 01/02/17 Signed Impressions: Service Date/Time: Monday, January 02, 2017 22:08 - CONCLUSION: Normal examination for a patient of this age. No significant change has occurred. Christopher Lagos MD Lower Extremity MRI 01/01/17 Signed Impressions: Service Date/Time: Sunday, January 01, 2017 20:03 - CONCLUSION: Subcutaneous soft tissue edema distal leg. No evidence of osteomyelitis of the tibia or fibula. Issa Christiansen MD Foot X-Ray 01/01/17 Signed Impressions: Service Date/Time: Sunday, January 01, 2017 04:49 - CONCLUSION: No acute abnormality. Prior left toe amputation. Issa Wills Jr., MD Foot MRI 01/01/17 Signed Impressions: Service Date/Time: Sunday, January 01, 2017 20:03 - CONCLUSION: 1. Prominent subcutaneous soft tissue edema about the foot and ankle. 2. Abnormal signal in the distal metatarsal head of the 4th digit, characterized by T1 and T2 prolongation. Differential considerations include healing fracture and osteomyelitis. 3. Probable Aburto's neuroma in the interspace between the distal 2nd and 3rd metatarsal bones. Issa Christiansen MD Abdomen/Pelvis CT 12/31/16 1939 Signed Impressions: Service Date/Time: Saturday, December 31, 2016 22:46 - CONCLUSION: 1. No acute abnormality to explain the patient's pain. 2. Colonic diverticulosis. No acute inflammation. 3. Suspected small calcified gallstone. The gallbladder is nondilated. 4. 4.2 cm left adrenal gland adenoma. Issa Wills Jr., MD Abdomen X-Ray 12/31/16 0000 Signed Impressions: Service Date/Time: Saturday, December 31, 2016 19:25 - CONCLUSION: Unremarkable study except for stool. K. Earl Stephens MD Objective Remarks GENERAL: 56-year-old male, lying in bed in no acute distress HEENT: NC/AT. Pupils equal, round, reactive, conjugate about 3 mm bilaterally. Mucous membranes are moist and pink. Oropharynx without erythema or exudates NECK: Obese neck. No thyromegaly or lymphadenopathy. CHEST: Diminished breath sounds bilaterally. Few crackles appreciated throughout all lung aguirre. No wheezing. CARDIOVASCULAR: RRR. S1, S2 no S4 without murmur ABDOMEN: Obese, soft, nontender, nondistended. No guarding. Hypoactive bowel sounds appreciated MUSCULOSKELETAL: 1+ peripheral edema. Distal pulses 2+. There is a small area on his left heel with a nonhealing ulcer. NEUROLOGICAL: Able to move all 4 extremities spontaneously but weakly. Stares, do not follow commands Urinary Catheter: Yes Assessment to: Continue Vascular Central Line Catheter: Yes Assessment to: Continue A/P Assessment and Plan Neuro/Psych: Post traumatic stress disorder Metabolic encephalopathy Alcohol withdrawal Agitated delirium Chronic narcotic use Precedex drip had been off since 2 PM Scheduled Ativan 1 mg by mouth every 8 hours - hold with altered mental status Seroquel 50mg po q8hr - hold with altered mental status Off morphine sulfate 60 mg twice a day and oxycodone 30 mg twice a day/home medication Off Lyrica 150 milligrams by mouth twice a day IV thiamine, multivitamin and folate 01/13 MRI brain was negative for acute intracranial findings/EEG showed moderate to severe encephalopathy with norepinephrine activity. Negative CT head 01/02 ammonia 20 on 01/02. 37 01/13. We'll recheck in a.m. 01/17 Respiratory: Acute hypoxic respiratory failure ARDS-improving Aspiration pneumonitis History of COPD Nasal cannula to maintain saturations greater than equal to 92% Incentive spirometry while awake Bronchodilator therapy every 6 hours and as needed Head of bed at 30 Self extubated 01/14, tolerating well Cardiovascular: Sinus tachycardia- resolving. Septic shock-resolved Hypertension Grade 2 diastolic dysfunction Off lisinopril 5 mill grams by mouth daily/home medication Currently on clonidine 0.3 mg 3 times a day. Decrease 0.2 mg grams daily and add clonidine patch while nothing by mouth Echo 01/09 revealed EF 55-60%. No regional wall motion abnormality. Grade 2 diastolic dysfunction. Renal: Acute kidney injury Likely prerenal/ATN secondary to sepsis. Strict I/Os, [place] Every hour urine outputs Creat continues to improve, Na improved 152 today Nephrology signed off FEN/GI: Acute protein calorie malnutritionmild Hyperammonia Trend BMP Protonix 40 mg IV q24 Colace twice a day/Senokot twice a day and lactulose twice a day for bowel regimen. Heme/ID: Left foot nonhealing ulceration Septic shock- resolved. History of splenectomy Thrombocytosis Right Cephalic superficial venous thrombus Continue aspirin 81 mg daily for thrombocytosis likely secondary splenectomy. Slowly resolving Continue heparin 5000 every 8 for superficial upper extremity thrombus 01/16 - blood cultures 2 - no growth 01/14 - sputum -ESBL positive Klebsiella 01/13 - blood cultures 2 14: Negative//MRSA 01/10/17 blood cultures 2 negative 01/02 sputum: NGTD 01/02 blood: NGTD 01/02 urine: NGTD. 01/02 heel wound culture enterococcus sensitive to ampicillin Stopped Zosyn/vancomycin 01/16. Ertapenem for ESBL+ Kleb pneumo x 7days started ID: Dr. Ospina following Santyl daily for foot ulcer Endocrine: Diabetes Hyperglycemia of critical illness -- SSI, medium scale, every 6 Holding Janumet one tablet twice a day and glyburide 10 mg by mouth twice a day MSK: Left second toe amputation No acute issues Prophylaxis: GI Prophylaxis Protonix DVT Prophylaxis --SCDs Subcutaneous heparin 5000 units 3 times a day Critical Care: The total critical care time was 35 minutes. Time to perform other separately billable procedures was not included in the critical care time. PT/OT Meliza Whittington MD Jan 17, 2017 14:52
[2017-01-17] MEDS: ERTAPENEM INJ 1,000 MG in SODIUM CHLORIDE 0.9% INJ 100 ML IV SCH (18:01)
[2017-01-17] MEDS: PANTOPRAZOLE SODIUM 40 MG VIAL IV PUSH SCH (21:48)
[2017-01-17] MEDS: ACETAMINOPHEN 325 MG TAB PO PRN (21:49)
[2017-01-17] MEDS: LORazepam 2 MG/ML VIAL IV PRN (21:50)
[2017-01-18] VITALS (14 sets, daily range): BP systolic 139–159; BP diastolic 81–92; PULSE 85–129; RESP 17–23; TEMP 98.2–99.9; O2SAT 95–98
[2017-01-18] MEDS: RESP: ALBUTEROL 2.5 MG/IPRATROPIUM 0.5 MG NEB (SCH) NEB ×5 (03:11→19:58)
[2017-01-18] MEDS: INSULIN NovoLIN REGULAR SUPPLEMENTAL SCALE SQ SCH ×6 (03:35→20:00)
[2017-01-18] MEDS ORDERED: hydrALAZINE HCL 20 MG/ML VIAL IV ONE (04:00)
[2017-01-18] MEDS: FREE WATER G-TUBE SCH ×5 (04:44→21:52)
[2017-01-18] MEDS: ARTIFICIAL TEARS OPTH SOLN 15 ML BTL EACH EYE SCH ×3 (04:44→21:52)
[2017-01-18] MEDS: HEPARIN SODIUM - SQ 10,000 UNITS/ML VIAL SQ SCH ×3 (04:45→21:52)
[2017-01-18] MEDS: cloNIDine HCL 0.2 MG TAB PO SCH ×3 (04:45→21:52)
[2017-01-18] MEDS ORDERED: hydrALAZINE HCL 20 MG/ML VIAL IV PRN (05:15)
--- NOTE | 2017-01-18 05:57 | RADRPT ---
EXAM DATE/TIME: 01/18/2017 03:35 [facility] COMPARISON: CHEST SINGLE AP, January 15, 2017, 4:12. INDICATIONS : Shortness of breath. MEDICAL HISTORY : Diabetes mellitus type II. Renal insufficiency. Cardiovascular disease. SURGICAL HISTORY : None. ENCOUNTER: Subsequent ACUITY: 2 weeks PAIN SCORE: Non-responsive. LOCATION: Bilateral chest FINDINGS: A single portable frontal view of the chest shows continued improvement in the left lung infiltrate. Bilateral interstitial prominence remains. Is more pronounced on the left. No effusions. Mild cardiom egaly. Nasogastric tube tip courses off the inferior margin of the film. CONCLUSION: Continued improvement of the left lung infiltrate. Issa Wills Jr., MD on January 18, 2017 at 5:55 Board Certified Radiologist. This report was verified electronically.
[2017-01-18] MEDS: SODIUM CHLORIDE 23.4% INJ 38.5 MEQ in WATER STERILE FOR INJ 1,000 ML IV SCH ×2 (06:48→15:50)
[2017-01-18] MEDS: CHLORHEXIDINE 0.12% (ORAL KIT) 15 ML CUP MT SCH ×2 (07:38→20:00)
[2017-01-18] MEDS: THIAMINE HCL 100 MG TAB PO SCH (09:00)
[2017-01-18] MEDS: COLLAGENASE OINT 30 GM TUBE TOPICAL SCH (09:00)
[2017-01-18] MEDS: SENNOSIDES SYRUP 8.8 MG/5 ML CUP PO SCH ×2 (09:29→21:00)
[2017-01-18] MEDS: LACTULOSE SYRUP 20 GM/30 ML CUP PO SCH (09:30)
[2017-01-18] MEDS: ASPIRIN 81 MG CHEW TAB PO SCH (09:30)
[2017-01-18] MEDS: DOCUSATE SODIUM 100 MG/10 ML UDC PO SCH ×2 (09:30→21:00)
[2017-01-18] MEDS: MULTIVITAMIN TAB PO SCH (09:30)
[2017-01-18] MEDS: SODIUM CHLORIDE 0.9% FLUSH 10 ML FLUSH IV FLUSH SCH ×2 (09:31→21:51)
[2017-01-18 10:33] LABS: AUTOMATED NEUTROPHIL # 10.5 TH/MM3 (1.8-7.7); BASOPHIL # 0.5 TH/MM3 (0-0.2); BASOPHIL % 2.7 % (0.0-2.0); EOSINOPHIL # 1.6 TH/MM3 (0-0.4); EOSINOPHIL % 8.4 % (0.0-4.0); HEMATOCRIT 33.9 % (39.0-51.0); LYMPH % 24.3 % (9.0-44.0); LYMPHOCYTE # 4.5 TH/MM3 (1.0-4.8); MEAN CELL VOLUME 97.9 FL (80.0-100.0); MEAN CORPUSCULAR HEMOGLOBIN 31.6 PG (27.0-34.0); MEAN CORPUSCULAR HGB CONC 32.3 % (32.0-36.0); MONO % 7.8 % (0.0-8.0); NEUT % 56.8 % (16.0-70.0); PLATELET COUNT 654 TH/MM3 (150-450); RED BLOOD COUNT 3.47 MIL/MM3 (4.50-5.90); RED CELL DISTRIBUTION WIDTH 13.5 % (11.6-17.2); WHITE BLOOD COUNT 18.6 TH/MM3 (4.0-11.0)
[2017-01-18 10:36] LABS: HEMO FLAGS DIFF FINAL
[2017-01-18 11:07] LABS: ALT (GPT) 14 U/L (12-78); ANION GAP 13 MEQ/L (5-15); AST (GOT) 16 U/L (15-37); BICARBONATE 18.3 MEQ/L (21.0-32.0); BLOOD UREA NITROGEN 37 MG/DL (7-18); CHLORIDE 117 MEQ/L (98-107); GLOMERULAR FILTRATION RATE 69 ML/MIN (>89); MAGNESIUM 2.2 MG/DL (1.5-2.5); POTASSIUM 3.6 MEQ/L (3.5-5.1); SODIUM (NA) 148 MEQ/L (136-145)
[2017-01-18 11:09] LABS: ALKALINE PHOSPHATASE 84 U/L (45-117); TOTAL BILIRUBIN ADULT 0.6 MG/DL (0.2-1.0)
--- NOTE | 2017-01-18 15:34 | HHI.CCPN ---
Subjective Remarks/Hospital Course This is a 56-year-old male who originally came into the emergency department with his left foot wound. He was admitted for IV antibiotics and cellulitis, possible osteomyelitis of the foot. He was seen by Dr. Ospina with infectious disease who felt that this was likely chronic osteo and not acute. Overnight last night he became acutely delirious, and has a very strong alcohol history, and was thought most likely to be an alcohol withdrawal. He was given Ativan. This morning, he was much more somnolent. This afternoon a rapid response was called because the patient was unresponsive. When I arrived, the patient had a oxygen saturation of 30% with a good plethysmograph waveform. He was emergently transferred to the ICU and intubated. He had a chest x-ray showing bilateral pulmonary protrudes in all lobes, more suggestive of ARDS. The patient was tachycardic, febrile, very septic appearing. He is toxic. Unfortunately, the patient is unresponsive and cannot provide any additional history. 01/03: remains intubated, sedated. persistent bilateral infiltrates. likely ARDS. remains on vasopressors. 01/04: Continued to spike fever 101.3 Tmax. Chest x-ray shows continued bilateral infiltrates/ARDS. Remains on Levophed at 4 mics per minute. Currently on Zosyn and micafungin, vancomycin added for additional gram- positive coverage 01/05: Continues to be hypoxemic currently on FiO2 65%. Chest x-ray shows worsening bilateral pulmonary edema. Fever trending down currently on vancomycin Zosyn and micafungin. Azithromycin added for atypical coverage. I will also increase PEEP to 12, stop IV fluids and give 2 mg IV Bumex 01/06: FiO2 down to 45%. PEEP remains at 12. 2.8 L urine output creatinine slightly improved to 1.8. Received 2 mg Bumex yesterday, nephrology has started scheduled Bumex 1 mg every 12 today. Chest x-ray shows persistent ARDS/ pulmonary edema 01/07: net euvolemic overnight. clinically appears volume overloaded still. failed CPAP for tachypnea yesterday. afebrile. oxygenation stable. 01/08: net euvolemic overnight again. still volume overloaded. Cr slightly elevated. metabolic alkalosis persists. 01/09: FiO2 down to 45%, achieving negative fluid balance. Urine output more than 4 L. Creatinine remained stable 01/10:: Patient remains on 45% oxygen and PEEP of 8, heavily sedated with propofol fentanyl and Precedex. Warren fever of 102. Hemodynamically stable 01/11: Maintaining oxygenation on the PEEP of 8 and FiO2 35%. Otherwise remains sedated with Precedex and fentanyl. Highest temperature was yesterday before noon 102 no fever now. WBC count is slightly improved. Patient is being observed off antibiotics today 01/12: Currently on PSV trial with PEEP of 8. Tmax 100.8. Positive BM 2. 01/13: Afebrile. Still not responsive. MRI brain/EEG ordered. Tolerating tube feeds. Positive BM. Tolerating PSV trials x 12 hours yesterday. 01/14: Tmax 100.8. Currently 99.8. Restarted antibiotics. Panculture. Tolerating PSV trials but not waking up and falling commands. MRI brain negative. EEG negative. 01/15: Tmax 101.6. Currently 100.1. Self extubated overnight. Currently on room air. Arousable but nonverbal. Protecting airway Not verbal. MRI brain showed no acute signs of CVA or hemorrhage/EEG negative. 01/16: Tmax 101.1. Currently 99.3. On 4 L nasal cannula. Mouth is open. Passed swallow evaluation. Nods head appropriately to questions. 01/17: Breathing comfortably. Not following commands. Na 152, BUN creat improving. PT/OT ordered Subjective: 01/18: Respiratory status remained stable. Tachycardic. WBC slightly increased 10 18.6. CXR improving. Not following commands or verbalizing Objective Vital Signs Date Time Temp Pulse Resp B/P Pulse Ox O2 Delivery O2 Flow Rate FiO2 01/18/17 14:00 128 01/18/17 12:00 98.6 21 157/90 96 01/18/17 09:24 Nasal Cannula 2.00 01/15/17 21:52 40 Intake and Output 01/17/17 01/17/17 01/18/17 08:00 16:00 00:00 Intake Total 1211 ml 1217 ml 883 ml Output Total 550 ml 1200 ml 900 ml Balance 661 ml 17 ml -17 ml Result Diagram: 01/18/17 1006 01/18/17 1006 Imaging Last Impressions Chest X-Ray 01/15/17 0600 Signed Impressions: Service Date/Time: Sunday, January 15, 2017 04:12 - CONCLUSION: Increased density the left chest infiltrate versus asymmetric failure. Multiple healed left-sided rib fractures. Tahir Worley MD Upper Extremity Ultrasound 01/14/17 Signed Impressions: Service Date/Time: Saturday, January 14, 2017 15:01 - CONCLUSION: Thrombus is seen within the right cephalic vein. Lela Stephens MD Lower Extremity Ultrasound 01/14/17 Signed Impressions: Service Date/Time: Saturday, January 14, 2017 14:44 - CONCLUSION: No evidence of deep venous thrombosis within the lower extremities. Christian Antoine MD Brain MRI 01/13/17 Signed Impressions: Service Date/Time: Friday, January 13, 2017 10:49 - CONCLUSION: Chronic atrophic and small vessel ischemic changes, encephalomalacia left frontal lobe chronic mastoiditis without any evidence for acute hemorrhage or mass effect. Lela Stephens MD Chest CT 01/02/17 1645 Signed Impressions: Service Date/Time: Monday, January 02, 2017 22:10 - CONCLUSION: 1. Acute development of bilateral airspace disease as above with some peripheral sparing , especially at the bases. Findings nonspecific. Patient may be developing ARDS/diffuse alveolar damage. Other considerations include infection and severe hypersensitivity type reaction. 2. Endotracheal tube, nasogastric tube and left central line in satisfactory position. Christopher Lagos MD Head CT 01/02/17 Signed Impressions: Service Date/Time: Monday, January 02, 2017 22:08 - CONCLUSION: Normal examination for a patient of this age. No significant change has occurred. Christopher Lagos MD Lower Extremity MRI 01/01/17 Signed Impressions: Service Date/Time: Sunday, January 01, 2017 20:03 - CONCLUSION: Subcutaneous soft tissue edema distal leg. No evidence of osteomyelitis of the tibia or fibula. Issa Christiansen MD Foot X-Ray 01/01/17 Signed Impressions: Service Date/Time: Sunday, January 01, 2017 04:49 - CONCLUSION: No acute abnormality. Prior left toe amputation. Issa Wills Jr., MD Foot MRI 01/01/17 Signed Impressions: Service Date/Time: Sunday, January 01, 2017 20:03 - CONCLUSION: 1. Prominent subcutaneous soft tissue edema about the foot and ankle. 2. Abnormal signal in the distal metatarsal head of the 4th digit, characterized by T1 and T2 prolongation. Differential considerations include healing fracture and osteomyelitis. 3. Probable Aburto's neuroma in the interspace between the distal 2nd and 3rd metatarsal bones. Issa Christiansen MD Abdomen/Pelvis CT 12/31/16 1939 Signed Impressions: Service Date/Time: Saturday, December 31, 2016 22:46 - CONCLUSION: 1. No acute abnormality to explain the patient's pain. 2. Colonic diverticulosis. No acute inflammation. 3. Suspected small calcified gallstone. The gallbladder is nondilated. 4. 4.2 cm left adrenal gland adenoma. Issa Wills Jr., MD Abdomen X-Ray 12/31/16 0000 Signed Impressions: Service Date/Time: Saturday, December 31, 2016 19:25 - CONCLUSION: Unremarkable study except for stool. Lela Stephens MD Objective Remarks GENERAL: 56-year-old male, lying in bed in no acute distress HEENT: NC/AT. Pupils equal, round, reactive, conjugate about 3 mm bilaterally. Mucous membranes are moist and pink. Oropharynx without erythema or exudates NECK: Obese neck. No thyromegaly or lymphadenopathy. CHEST: Diminished breath sounds bilaterally. Few crackles appreciated throughout all lung aguirre. No wheezing. CARDIOVASCULAR: Tachycardic in 120s. S1, S2 no S4 without murmur ABDOMEN: Obese, soft, nontender, nondistended. No guarding. Hypoactive bowel sounds appreciated MUSCULOSKELETAL: 1+ peripheral edema. Distal pulses 2+. There is a small area on his left heel with a nonhealing ulcer. NEUROLOGICAL: Able to move all 4 extremities spontaneously but weakly. Eyes open spontaneously, do not follow commands A/P Assessment and Plan Neuro/Psych: Metabolic encephalopathy Alcohol withdrawal Agitated delirium Chronic narcotic use Post traumatic stress disorder Precedex drip had been off since 2 PM 01/16 Scheduled Ativan 1 mg by mouth every 8 hours - hold with altered mental status Seroquel 50mg po q8hr - hold with altered mental status Off morphine sulfate 60 mg twice a day and oxycodone 30 mg twice a day/home medication Off Lyrica 150 milligrams by mouth twice a day IV thiamine, multivitamin and folate 01/13 MRI brain was negative for acute intracranial findings/EEG showed moderate to severe encephalopathy with norepinephrine activity. Negative CT head 01/02 ammonia 20 on 01/02. 37 01/13. We'll recheck in a.m. 01/17 Respiratory: Acute hypoxic respiratory failure-resolved ARDS-improving Aspiration pneumonitis History of COPD Self extubated 01/14, tolerating well Nasal cannula to maintain saturations greater than equal to 92% Incentive spirometry while awake Bronchodilator therapy every 6 hours and as needed Head of bed at 30 CXR resolving infiltrates Cardiovascular: Sinus tachycardia Septic shock-resolved Hypertension Grade 2 diastolic dysfunction Off lisinopril 5 mill grams by mouth daily/home medication Currently on clonidine 0.2 mg grams po [id number] Echo 01/09 revealed EF 55-60%. No regional wall motion abnormality. Grade 2 diastolic dysfunction. IV metoprolol 2.5 mg every 6 hours when necessary for HR>110 Renal: Acute kidney injury Likely prerenal/ATN secondary to sepsis. Strict I/Os, [place] Every hour urine outputs Creat continues to improve, Na improved 148 today Creat normalized Nephrology signed off. Continue quarter normal saline FEN/GI: Acute protein calorie malnutritionmild Hyperammonia Trend BMP Protonix 40 mg IV q24 Colace twice a day/Senokot twice a day and lactulose twice a day for bowel regimen. NPO, continue NGT feeding Heme/ID: Left foot nonhealing ulceration Septic shock- resolved. History of splenectomy Thrombocytosis Right Cephalic superficial venous thrombus Continue aspirin 81 mg daily for thrombocytosis likely secondary splenectomy. Slowly resolving Continue heparin 5000 every 8 for superficial upper extremity thrombus 01/16 - blood cultures 2 - no growth 01/14 - sputum -ESBL positive Klebsiella 01/13 - blood cultures 2 14: Negative//MRSA 01/10/17 blood cultures 2 negative 01/02 sputum: NGTD 01/02 blood: NGTD 01/02 urine: NGTD. 01/02 heel wound culture enterococcus sensitive to ampicillin Stopped Zosyn/vancomycin 01/16. Ertapenem for ESBL+ Kleb pneumo x 7days started ID: Dr. Ospina following Santyl daily for foot ulcer Endocrine: Diabetes Hyperglycemia of critical illness -- SSI, medium scale, every 6 Holding Janumet one tablet twice a day and glyburide 10 mg by mouth twice a day MSK: Left second toe amputation No acute issues Prophylaxis: GI Prophylaxis Protonix DVT Prophylaxis --SCDs Subcutaneous heparin 5000 units 3 times a day Critical Care: The total critical care time was 35 minutes. Time to perform other separately billable procedures was not included in the critical care time. PT/OT Meliza Whittington MD Jan 18, 2017 15:34
[2017-01-18] MEDS ORDERED: METOPROLOL TARTRATE 5 MG/5 ML VIAL IV PUSH ONE ×2 (16:00→17:30)
[2017-01-18] MEDS: ERTAPENEM INJ 1,000 MG in SODIUM CHLORIDE 0.9% INJ 100 ML IV SCH (16:54)
[2017-01-18] MEDS: PANTOPRAZOLE SODIUM 40 MG VIAL IV PUSH SCH (21:51)
[2017-01-19] VITALS (15 sets, daily range): BP systolic 133–158; BP diastolic 75–92; PULSE 83–111; RESP 18–23; TEMP 98.5–99.6; O2SAT 92–100
[2017-01-19] MEDS: SODIUM CHLORIDE 23.4% INJ 38.5 MEQ in WATER STERILE FOR INJ 1,000 ML IV SCH ×2 (01:01→11:14)
[2017-01-19] MEDS: RESP: ALBUTEROL 2.5 MG/IPRATROPIUM 0.5 MG NEB (SCH) NEB ×4 (03:51→19:49)
[2017-01-19] MEDS: INSULIN NovoLIN REGULAR SUPPLEMENTAL SCALE SQ SCH ×6 (04:00→20:00)
[2017-01-19] MEDS: HEPARIN SODIUM - SQ 10,000 UNITS/ML VIAL SQ SCH ×3 (05:14→21:17)
[2017-01-19] MEDS: FREE WATER G-TUBE SCH ×3 (05:14→16:52)
[2017-01-19] MEDS: cloNIDine HCL 0.2 MG TAB PO SCH (05:14)
[2017-01-19] MEDS: ARTIFICIAL TEARS OPTH SOLN 15 ML BTL EACH EYE SCH ×3 (05:14→21:17)
[2017-01-19] MEDS: CHLORHEXIDINE 0.12% (ORAL KIT) 15 ML CUP MT SCH ×2 (08:00→21:16)
[2017-01-19] MEDS: THIAMINE HCL 100 MG TAB PO SCH (08:34)
[2017-01-19] MEDS: DOCUSATE SODIUM 100 MG/10 ML UDC PO SCH ×2 (08:34→21:15)
[2017-01-19] MEDS: LACTULOSE SYRUP 20 GM/30 ML CUP PO SCH (08:34)
[2017-01-19] MEDS: ASPIRIN 81 MG CHEW TAB PO SCH (08:34)
[2017-01-19] MEDS: MULTIVITAMIN TAB PO SCH (08:34)
[2017-01-19] MEDS: SENNOSIDES SYRUP 8.8 MG/5 ML CUP PO SCH ×2 (08:35→21:16)
[2017-01-19] MEDS: SODIUM CHLORIDE 0.9% FLUSH 10 ML FLUSH IV FLUSH SCH ×2 (08:35→21:16)
[2017-01-19] MEDS: COLLAGENASE OINT 30 GM TUBE TOPICAL SCH (11:13)
--- NOTE | 2017-01-19 14:04 | HHI.CCPN ---
Subjective Remarks/Hospital Course This is a 56-year-old male who originally came into the emergency department with his left foot wound. He was admitted for IV antibiotics and cellulitis, possible osteomyelitis of the foot. He was seen by Dr. Ospina with infectious disease who felt that this was likely chronic osteo and not acute. Overnight last night he became acutely delirious, and has a very strong alcohol history, and was thought most likely to be an alcohol withdrawal. He was given Ativan. This morning, he was much more somnolent. This afternoon a rapid response was called because the patient was unresponsive. When I arrived, the patient had a oxygen saturation of 30% with a good plethysmograph waveform. He was emergently transferred to the ICU and intubated. He had a chest x-ray showing bilateral pulmonary protrudes in all lobes, more suggestive of ARDS. The patient was tachycardic, febrile, very septic appearing. He is toxic. Unfortunately, the patient is unresponsive and cannot provide any additional history. 01/03: remains intubated, sedated. persistent bilateral infiltrates. likely ARDS. remains on vasopressors. 01/04: Continued to spike fever 101.3 Tmax. Chest x-ray shows continued bilateral infiltrates/ARDS. Remains on Levophed at 4 mics per minute. Currently on Zosyn and micafungin, vancomycin added for additional gram- positive coverage 01/05: Continues to be hypoxemic currently on FiO2 65%. Chest x-ray shows worsening bilateral pulmonary edema. Fever trending down currently on vancomycin Zosyn and micafungin. Azithromycin added for atypical coverage. I will also increase PEEP to 12, stop IV fluids and give 2 mg IV Bumex 01/06: FiO2 down to 45%. PEEP remains at 12. 2.8 L urine output creatinine slightly improved to 1.8. Received 2 mg Bumex yesterday, nephrology has started scheduled Bumex 1 mg every 12 today. Chest x-ray shows persistent ARDS/ pulmonary edema 01/07: net euvolemic overnight. clinically appears volume overloaded still. failed CPAP for tachypnea yesterday. afebrile. oxygenation stable. 01/08: net euvolemic overnight again. still volume overloaded. Cr slightly elevated. metabolic alkalosis persists. 01/09: FiO2 down to 45%, achieving negative fluid balance. Urine output more than 4 L. Creatinine remained stable 01/10:: Patient remains on 45% oxygen and PEEP of 8, heavily sedated with propofol fentanyl and Precedex. Warren fever of 102. Hemodynamically stable 01/11: Maintaining oxygenation on the PEEP of 8 and FiO2 35%. Otherwise remains sedated with Precedex and fentanyl. Highest temperature was yesterday before noon 102 no fever now. WBC count is slightly improved. Patient is being observed off antibiotics today 01/12: Currently on PSV trial with PEEP of 8. Tmax 100.8. Positive BM 2. 01/13: Afebrile. Still not responsive. MRI brain/EEG ordered. Tolerating tube feeds. Positive BM. Tolerating PSV trials x 12 hours yesterday. 01/14: Tmax 100.8. Currently 99.8. Restarted antibiotics. Panculture. Tolerating PSV trials but not waking up and falling commands. MRI brain negative. EEG negative. 01/15: Tmax 101.6. Currently 100.1. Self extubated overnight. Currently on room air. Arousable but nonverbal. Protecting airway Not verbal. MRI brain showed no acute signs of CVA or hemorrhage/EEG negative. 01/16: Tmax 101.1. Currently 99.3. On 4 L nasal cannula. Mouth is open. Passed swallow evaluation. Nods head appropriately to questions.01/17: Breathing comfortably. Not following commands. Na 152, BUN creat improving. PT/ OT ordered 01/18: Respiratory status remained stable. Tachycardic. WBC slightly increased 10 18.6. CXR improving. Not following commands or verbalizing Subjective: 01/19: Tmax 99.9. Currently 99.6. One bowel movement. Tolerating tube feeding. Objective Vital Signs Date Time Temp Pulse Resp B/P Pulse Ox O2 Delivery O2 Flow Rate FiO2 01/19/17 12:00 83 01/19/17 12:00 99.6 21 152/92 92 01/18/17 19:58 Nasal Cannula 2.00 01/15/17 21:52 40 Intake and Output 01/18/17 01/18/17 01/19/17 08:00 16:00 00:00 Intake Total 788 ml 1080 ml 1156 ml Output Total 550 ml 1000 ml 750 ml Balance 238 ml 80 ml 406 ml Result Diagram: 01/18/17 1006 01/18/17 1006 Other Results Microbiology Date/Time Procedure Status Source Growth 01/16/17 03:51 Aerobic Blood Culture - Preliminary Resulted Blood Peripheral NO GROWTH IN 3 DAYS 01/16/17 03:51 Anaerobic Blood Culture - Preliminary Resulted Blood Peripheral NO GROWTH IN 3 DAYS Imaging Last Impressions Chest X-Ray 01/18/17 0600 Signed Impressions: Service Date/Time: Wednesday, January 18, 2017 03:35 - CONCLUSION: Continued improvement of the left lung infiltrate. Issa Wills Jr., MD Upper Extremity Ultrasound 01/14/17 0000 Signed Impressions: Service Date/Time: Saturday, January 14, 2017 15:01 - CONCLUSION: Thrombus is seen within the right cephalic vein. Lela Stephens MD Lower Extremity Ultrasound 01/14/17 0000 Signed Impressions: Service Date/Time: Saturday, January 14, 2017 14:44 - CONCLUSION: No evidence of deep venous thrombosis within the lower extremities. Christian Antoine MD Brain MRI 01/13/17 0000 Signed Impressions: Service Date/Time: Friday, January 13, 2017 10:49 - CONCLUSION: Chronic atrophic and small vessel ischemic changes, encephalomalacia left frontal lobe chronic mastoiditis without any evidence for acute hemorrhage or mass effect. Lela Stephens MD Chest CT 01/02/17 1645 Signed Impressions: Service Date/Time: Monday, January 02, 2017 22:10 - CONCLUSION: 1. Acute development of bilateral airspace disease as above with some peripheral sparing , especially at the bases. Findings nonspecific. Patient may be developing ARDS/diffuse alveolar damage. Other considerations include infection and severe hypersensitivity type reaction. 2. Endotracheal tube, nasogastric tube and left central line in satisfactory position. Christopher Lagos MD Head CT 01/02/17 0000 Signed Impressions: Service Date/Time: Monday, January 02, 2017 22:08 - CONCLUSION: Normal examination for a patient of this age. No significant change has occurred. Christopher Lagos MD Lower Extremity MRI 01/01/17 0000 Signed Impressions: Service Date/Time: Sunday, January 01, 2017 20:03 - CONCLUSION: Subcutaneous soft tissue edema distal leg. No evidence of osteomyelitis of the tibia or fibula. Issa Christiansen MD Foot X-Ray 01/01/17 0000 Signed Impressions: Service Date/Time: Sunday, January 01, 2017 04:49 - CONCLUSION: No acute abnormality. Prior left toe amputation. Issa Wills Jr., MD Foot MRI 01/01/17 0000 Signed Impressions: Service Date/Time: Sunday, January 01, 2017 20:03 - CONCLUSION: 1. Prominent subcutaneous soft tissue edema about the foot and ankle. 2. Abnormal signal in the distal metatarsal head of the 4th digit, characterized by T1 and T2 prolongation. Differential considerations include healing fracture and osteomyelitis. 3. Probable Aburto's neuroma in the interspace between the distal 2nd and 3rd metatarsal bones. Issa Christiansen MD Abdomen/Pelvis CT 12/31/161938 Signed Impressions: Service Date/Time: Saturday, December 31, 2016 22:46 - CONCLUSION: 1. No acute abnormality to explain the patient's pain. 2. Colonic diverticulosis. No acute inflammation. 3. Suspected small calcified gallstone. The gallbladder is nondilated. 4. 4.2 cm left adrenal gland adenoma. Issa Wills Jr., MD Abdomen X-Ray 12/31/16 0000 Signed Impressions: Service Date/Time: Saturday, December 31, 2016 19:25 - CONCLUSION: Unremarkable study except for stool. Lela Stephens MD Objective Remarks GENERAL: 56-year-old male, lying in bed in no acute distress HEENT: NC/AT. Pupils equal, round, reactive, conjugate about 3 mm bilaterally. Mucous membranes are moist and pink. Oropharynx without erythema or exudates NECK: Obese neck. No thyromegaly or lymphadenopathy. CHEST: Diminished breath sounds bilaterally. Few crackles appreciated throughout all lung aguirre. No wheezing. CARDIOVASCULAR: Tachycardic in 120s. S1, S2 no S4 without murmur ABDOMEN: Obese, soft, nontender, nondistended. No guarding. Hypoactive bowel sounds appreciated MUSCULOSKELETAL: 1+ peripheral edema. Distal pulses 2+. There is a small area on his left heel with a nonhealing ulcer. NEUROLOGICAL: Able to move all 4 extremities spontaneously but weakly. Eyes open spontaneously, do not follow commands A/P Assessment and Plan Neuro/Psych: Metabolic encephalopathy Alcohol withdrawal Agitated delirium Chronic narcotic use Post traumatic stress disorder Precedex drip had been off since 2 PM 01/16 Scheduled Ativan 1 mg by mouth every 8 hours - hold with altered mental status Seroquel 50mg po q8hr - hold with altered mental status Off morphine sulfate 60 mg twice a day and oxycodone 30 mg twice a day/home medication Off Lyrica 150 milligrams by mouth twice a day IV thiamine, multivitamin and folate 01/13 MRI brain was negative for acute intracranial findings/EEG showed moderate to severe encephalopathy with norepinephrine activity. Negative CT head 01/02 ammonia 20 on 01/02. 37 01/13. Recheck today Respiratory: Acute hypoxic respiratory failure-resolved ARDS-improving Aspiration pneumonitis History of COPD Self extubated 01/14, tolerating well Nasal cannula to maintain saturations greater than equal to 92% Incentive spirometry while awake Bronchodilator therapy every 6 hours and as needed Head of bed at 30 CXR resolving infiltrates Cardiovascular: Sinus tachycardia Septic shock-resolved Hypertension Grade 2 diastolic dysfunction Off lisinopril 5 mill grams by mouth daily/home medication Currently on clonidine 0.3 mg grams po [id number] Echo 01/09 revealed EF 55-60%. No regional wall motion abnormality. Grade 2 diastolic dysfunction. IV metoprolol 2.5 mg every 6 hours when necessary for HR>110 Renal: Acute kidney injury Likely prerenal/ATN secondary to sepsis. Strict I/Os, [place] Every hour urine outputs Creat continues to improve, Na improved 148 today Creat normalized Nephrology signed off. Continue quarter normal saline FEN/GI: Acute protein calorie malnutritionmild Hyperammonia Trend BMP Protonix 40 mg IV q24 Colace twice a day/Senokot twice a day and lactulose twice a day for bowel regimen. Continue NGT feeding with Glucerna 1.5 goal 50 cc an hour per nutrition recommends. Thickened liquid diet with one can Glucerna 3 times a day with trickle feeds with Glucerna 1.5 at 20 cc an hour Heme/ID: Left foot nonhealing ulceration Septic shock- resolved. History of splenectomy Thrombocytosis Right Cephalic superficial venous thrombus Continue aspirin 81 mg daily for thrombocytosis likely secondary splenectomy. Slowly resolving Continue heparin 5000 every 8 for superficial upper extremity thrombus 01/16 - blood cultures 2 - no growth 01/14 - sputum -ESBL positive Klebsiella 01/13 - blood cultures 2 14: Negative//MRSA 01/10/17 blood cultures 2 negative 01/02 sputum: NGTD 01/02 blood: NGTD 01/02 urine: NGTD. 01/02 heel wound culture enterococcus sensitive to ampicillin Stopped Zosyn/vancomycin 01/16. Ertapenem for ESBL+ Kleb pneumo x 7days started ID: Dr. Ospina following Santyl daily for foot ulcer Endocrine: Diabetes Hyperglycemia of critical illness -- SSI, medium scale, every 6 Holding Janumet one tablet twice a day and glyburide 10 mg by mouth twice a day MSK: Left second toe amputation No acute issues Prophylaxis: GI Prophylaxis Protonix DVT Prophylaxis --SCDs Subcutaneous heparin 5000 units 3 times a day Critical Care: The total critical care time was 35 minutes. Time to perform other separately billable procedures was not included in the critical care time. Cleveland Vera MD Jan 19, 2017 14:04
[2017-01-19] MEDS: cloNIDine HCL 0.3 MG TAB PO SCH ×2 (15:53→21:17)
[2017-01-19] MEDS: ERTAPENEM INJ 1,000 MG in SODIUM CHLORIDE 0.9% INJ 100 ML IV SCH (16:52)
[2017-01-19 18:28] LABS: AUTOMATED NEUTROPHIL # 10.8 TH/MM3 (1.8-7.7); BASOPHIL # 0.2 TH/MM3 (0-0.2); BASOPHIL % 1.1 % (0.0-2.0); EOSINOPHIL # 1.6 TH/MM3 (0-0.4); EOSINOPHIL % 8.9 % (0.0-4.0); HEMATOCRIT 30.2 % (39.0-51.0); HEMO FLAGS DIFF FINAL; LYMPH % 22.6 % (9.0-44.0); MEAN CELL VOLUME 96.8 FL (80.0-100.0); MEAN CORPUSCULAR HEMOGLOBIN 31.7 PG (27.0-34.0); MEAN CORPUSCULAR HGB CONC 32.7 % (32.0-36.0); NEUT % 60.4 % (16.0-70.0); PLATELET COUNT 574 TH/MM3 (150-450); RED BLOOD COUNT 3.12 MIL/MM3 (4.50-5.90); RED CELL DISTRIBUTION WIDTH 13.7 % (11.6-17.2); WHITE BLOOD COUNT 17.9 TH/MM3 (4.0-11.0)
[2017-01-19 18:58] LABS: BICARBONATE 21.9 MEQ/L (21.0-32.0); POTASSIUM 3.7 MEQ/L (3.5-5.1)
[2017-01-19] MEDS: PANTOPRAZOLE SODIUM 40 MG VIAL IV PUSH SCH (21:14)
[2017-01-20] VITALS (14 sets, daily range): BP systolic 138–168; BP diastolic 77–90; PULSE 94–129; RESP 19–26; TEMP 98.5–99.6; O2SAT 90–97
[2017-01-20] MEDS: INSULIN NovoLIN REGULAR SUPPLEMENTAL SCALE SQ SCH ×6 (04:00→21:40)
[2017-01-20] MEDS: RESP: ALBUTEROL 2.5 MG/IPRATROPIUM 0.5 MG NEB (SCH) NEB ×4 (04:17→20:11)
[2017-01-20] MEDS: ARTIFICIAL TEARS OPTH SOLN 15 ML BTL EACH EYE SCH ×3 (04:55→21:39)
[2017-01-20] MEDS: cloNIDine HCL 0.3 MG TAB PO SCH ×3 (04:56→21:39)
[2017-01-20] MEDS: FREE WATER G-TUBE SCH ×4 (04:56→17:53)
[2017-01-20] MEDS: HEPARIN SODIUM - SQ 10,000 UNITS/ML VIAL SQ SCH ×3 (04:56→21:39)
[2017-01-20 05:23] LABS: ANION GAP 10 MEQ/L (5-15); AST (GOT) 13 U/L (15-37); BICARBONATE 22.3 MEQ/L (21.0-32.0); BLOOD UREA NITROGEN 30 MG/DL (7-18); CHLORIDE 112 MEQ/L (98-107); GLOMERULAR FILTRATION RATE 72 ML/MIN (>89); MAGNESIUM 2.2 MG/DL (1.5-2.5); POTASSIUM 3.7 MEQ/L (3.5-5.1); SODIUM (NA) 144 MEQ/L (136-145)
[2017-01-20 05:25] LABS: AUTOMATED NEUTROPHIL # 10.3 TH/MM3 (1.8-7.7); BASOPHIL # 0.2 TH/MM3 (0-0.2); BASOPHIL % 1.4 % (0.0-2.0); EOSINOPHIL # 1.7 TH/MM3 (0-0.4); HEMATOCRIT 31.5 % (39.0-51.0); HEMO FLAGS DIFF FINAL; LYMPH % 22.2 % (9.0-44.0); LYMPHOCYTE # 3.9 TH/MM3 (1.0-4.8); MEAN CELL VOLUME 96.6 FL (80.0-100.0); MEAN CORPUSCULAR HEMOGLOBIN 31.8 PG (27.0-34.0); MEAN CORPUSCULAR HGB CONC 32.9 % (32.0-36.0); MONO % 7.6 % (0.0-8.0); NEUT % 58.8 % (16.0-70.0); PLATELET COUNT 566 TH/MM3 (150-450); RED BLOOD COUNT 3.26 MIL/MM3 (4.50-5.90); RED CELL DISTRIBUTION WIDTH 13.6 % (11.6-17.2); WHITE BLOOD COUNT 17.4 TH/MM3 (4.0-11.0)
[2017-01-20 05:31] LABS: ALKALINE PHOSPHATASE 92 U/L (45-117); ALT (GPT) 13 U/L (12-78); TOTAL BILIRUBIN ADULT 0.2 MG/DL (0.2-1.0)
[2017-01-20] MEDS: CHLORHEXIDINE 0.12% (ORAL KIT) 15 ML CUP MT SCH ×2 (08:00→20:00)
[2017-01-20] MEDS: SODIUM CHLORIDE 0.9% FLUSH 10 ML FLUSH IV FLUSH SCH ×2 (08:27→21:40)
[2017-01-20] MEDS: MULTIVITAMIN TAB PO SCH (08:27)
[2017-01-20] MEDS: SENNOSIDES SYRUP 8.8 MG/5 ML CUP PO SCH ×2 (08:27→21:39)
[2017-01-20] MEDS: ASPIRIN 81 MG CHEW TAB PO SCH (08:27)
[2017-01-20] MEDS: LACTULOSE SYRUP 20 GM/30 ML CUP PO SCH (08:27)
[2017-01-20] MEDS: THIAMINE HCL 100 MG TAB PO SCH (08:27)
[2017-01-20] MEDS: DOCUSATE SODIUM 100 MG/10 ML UDC PO SCH ×2 (08:27→21:39)
[2017-01-20] MEDS: COLLAGENASE OINT 30 GM TUBE TOPICAL SCH (08:29)
--- NOTE | 2017-01-20 10:49 | HHI.CCPN ---
Subjective Remarks/Hospital Course This is a 56-year-old male who originally came into the emergency department with his left foot wound. He was admitted for IV antibiotics and cellulitis, possible osteomyelitis of the foot. He was seen by Dr. Ospina with infectious disease who felt that this was likely chronic osteo and not acute. Overnight last night he became acutely delirious, and has a very strong alcohol history, and was thought most likely to be an alcohol withdrawal. He was given Ativan. This morning, he was much more somnolent. This afternoon a rapid response was called because the patient was unresponsive. When I arrived, the patient had a oxygen saturation of 30% with a good plethysmograph waveform. He was emergently transferred to the ICU and intubated. He had a chest x-ray showing bilateral pulmonary protrudes in all lobes, more suggestive of ARDS. The patient was tachycardic, febrile, very septic appearing. He is toxic. Unfortunately, the patient is unresponsive and cannot provide any additional history. 01/03: remains intubated, sedated. persistent bilateral infiltrates. likely ARDS. remains on vasopressors. 01/04: Continued to spike fever 101.3 Tmax. Chest x-ray shows continued bilateral infiltrates/ARDS. Remains on Levophed at 4 mics per minute. Currently on Zosyn and micafungin, vancomycin added for additional gram- positive coverage 01/05: Continues to be hypoxemic currently on FiO2 65%. Chest x-ray shows worsening bilateral pulmonary edema. Fever trending down currently on vancomycin Zosyn and micafungin. Azithromycin added for atypical coverage. I will also increase PEEP to 12, stop IV fluids and give 2 mg IV Bumex 01/06: FiO2 down to 45%. PEEP remains at 12. 2.8 L urine output creatinine slightly improved to 1.8. Received 2 mg Bumex yesterday, nephrology has started scheduled Bumex 1 mg every 12 today. Chest x-ray shows persistent ARDS/ pulmonary edema 01/07: net euvolemic overnight. clinically appears volume overloaded still. failed CPAP for tachypnea yesterday. afebrile. oxygenation stable. 01/08: net euvolemic overnight again. still volume overloaded. Cr slightly elevated. metabolic alkalosis persists. 01/09: FiO2 down to 45%, achieving negative fluid balance. Urine output more than 4 L. Creatinine remained stable 01/10:: Patient remains on 45% oxygen and PEEP of 8, heavily sedated with propofol fentanyl and Precedex. Warren fever of 102. Hemodynamically stable 01/11: Maintaining oxygenation on the PEEP of 8 and FiO2 35%. Otherwise remains sedated with Precedex and fentanyl. Highest temperature was yesterday before noon 102 no fever now. WBC count is slightly improved. Patient is being observed off antibiotics today 01/12: Currently on PSV trial with PEEP of 8. Tmax 100.8. Positive BM 2. 01/13: Afebrile. Still not responsive. MRI brain/EEG ordered. Tolerating tube feeds. Positive BM. Tolerating PSV trials x 12 hours yesterday. 01/14: Tmax 100.8. Currently 99.8. Restarted antibiotics. Panculture. Tolerating PSV trials but not waking up and falling commands. MRI brain negative. EEG negative. 01/15: Tmax 101.6. Currently 100.1. Self extubated overnight. Currently on room air. Arousable but nonverbal. Protecting airway Not verbal. MRI brain showed no acute signs of CVA or hemorrhage/EEG negative. 01/16: Tmax 101.1. Currently 99.3. On 4 L nasal cannula. Mouth is open. Passed swallow evaluation. Nods head appropriately to questions. 01/17: Breathing comfortably. Not following commands. Na 152, BUN creat improving. PT/OT ordered 01/18: Respiratory status remained stable. Tachycardic. WBC slightly increased 10 18.6. CXR improving. Not following commands or verbalizing 01/19: Tmax 99.9. Currently 99.6. One bowel movement. Tolerating tube feeding. Subjective: 01/20: Tmax 99.6. Currently 99. Attempting to mumble words today. MRI brain pending. Positive BM 2. Tolerating tube feeding Objective Vital Signs Date Time Temp Pulse Resp B/P Pulse Ox O2 Delivery O2 Flow Rate FiO2 01/20/17 08:00 99.0 94 19 168/90 93 01/19/17 20:28 Nasal Cannula 2.00 Intake and Output 01/19/17 01/19/17 01/20/17 08:00 16:00 00:00 Intake Total 969 ml 1420 ml 329 ml Output Total 650 ml 850 ml 950 ml Balance 319 ml 570 ml -621 ml Result Diagram: 01/20/17 0341 01/20/17 0341 Other Results Microbiology Date/Time Procedure Status Source Growth 01/16/17 03:51 Aerobic Blood Culture - Preliminary Resulted Blood Peripheral NO GROWTH IN 3 DAYS 01/16/17 03:51 Anaerobic Blood Culture - Preliminary Resulted Blood Peripheral NO GROWTH IN 3 DAYS Imaging Last Impressions Chest X-Ray 01/18/17 0600 Signed Impressions: Service Date/Time: Wednesday, January 18, 2017 03:35 - CONCLUSION: Continued improvement of the left lung infiltrate. Issa Wills Jr., MD Upper Extremity Ultrasound 01/14/17 0000 Signed Impressions: Service Date/Time: Saturday, January 14, 2017 15:01 - CONCLUSION: Thrombus is seen within the right cephalic vein. Lela Stephens MD Lower Extremity Ultrasound 01/14/17 0000 Signed Impressions: Service Date/Time: Saturday, January 14, 2017 14:44 - CONCLUSION: No evidence of deep venous thrombosis within the lower extremities. Christian Antoine MD Brain MRI 01/13/17 0000 Signed Impressions: Service Date/Time: Friday, January 13, 2017 10:49 - CONCLUSION: Chronic atrophic and small vessel ischemic changes, encephalomalacia left frontal lobe chronic mastoiditis without any evidence for acute hemorrhage or mass effect. Lela Stephens MD Chest CT 01/02/17 1645 Signed Impressions: Service Date/Time: Monday, January 02, 2017 22:10 - CONCLUSION: 1. Acute development of bilateral airspace disease as above with some peripheral sparing , especially at the bases. Findings nonspecific. Patient may be developing ARDS/diffuse alveolar damage. Other considerations include infection and severe hypersensitivity type reaction. 2. Endotracheal tube, nasogastric tube and left central line in satisfactory position. Christopher Lagos MD Head CT 01/02/17 Signed Impressions: Service Date/Time: Monday, January 02, 2017 22:08 - CONCLUSION: Normal examination for a patient of this age. No significant change has occurred. Christopher Lagos MD Lower Extremity MRI 01/01/17 0000 Signed Impressions: Service Date/Time: Sunday, January 01, 2017 20:03 - CONCLUSION: Subcutaneous soft tissue edema distal leg. No evidence of osteomyelitis of the tibia or fibula. Issa Christiansen MD Foot X-Ray 01/01/17 0000 Signed Impressions: Service Date/Time: Sunday, January 01, 2017 04:49 - CONCLUSION: No acute abnormality. Prior left toe amputation. Issa Wills Jr., MD Foot MRI 01/01/17 0000 Signed Impressions: Service Date/Time: Sunday, January 01, 2017 20:03 - CONCLUSION: 1. Prominent subcutaneous soft tissue edema about the foot and ankle. 2. Abnormal signal in the distal metatarsal head of the 4th digit, characterized by T1 and T2 prolongation. Differential considerations include healing fracture and osteomyelitis. 3. Probable Aburto's neuroma in the interspace between the distal 2nd and 3rd metatarsal bones. Issa Christiansen MD Abdomen/Pelvis CT 12/31/[id number] Signed Impressions: Service Date/Time: Saturday, December 31, 2016 22:46 - CONCLUSION: 1. No acute abnormality to explain the patient's pain. 2. Colonic diverticulosis. No acute inflammation. 3. Suspected small calcified gallstone. The gallbladder is nondilated. 4. 4.2 cm left adrenal gland adenoma. Issa Wills Jr., MD Abdomen X-Ray 12/31/16 0000 Signed Impressions: Service Date/Time: Saturday, December 31, 2016 19:25 - CONCLUSION: Unremarkable study except for stool. Lela Stephens MD Objective Remarks GENERAL: 56-year-old male, lying in bed in no acute distress HEENT: NC/AT. Pupils equal, round, reactive, conjugate about 3 mm bilaterally. Mucous membranes are moist and pink. Oropharynx without erythema or exudates NECK: Obese neck. No thyromegaly or lymphadenopathy. CHEST: Diminished breath sounds bilaterally. Few crackles appreciated throughout all lung aguirre. No wheezing. CARDIOVASCULAR: Tachycardic in 120s. S1, S2 no S4 without murmur ABDOMEN: Obese, soft, nontender, nondistended. No guarding. Hypoactive bowel sounds appreciated MUSCULOSKELETAL: 1+ peripheral edema. Distal pulses 2+. There is a small area on his left heel with a nonhealing ulcer. NEUROLOGICAL: Able to move all 4 extremities spontaneously but weakly. Eyes open spontaneously, do not follow commands A/P Assessment and Plan Neuro/Psych: Metabolic encephalopathy Alcohol withdrawal Agitated delirium Chronic narcotic use Post traumatic stress disorder Precedex drip had been off since 2 PM 01/16 Scheduled Ativan 1 mg by mouth every 8 hours - hold with altered mental status Seroquel 50mg po q8hr - hold with altered mental status Off morphine sulfate 60 mg twice a day and oxycodone 30 mg twice a day/home medication Off Lyrica 150 milligrams by mouth twice a day IV thiamine, multivitamin and folate 01/13 MRI brain was negative for acute intracranial findings/EEG showed moderate to severe encephalopathy with norepinephrine activity. Negative CT head 01/02 ammonia 20 on 01/02. 37 01/13. Currently 18 01/19 Recheck MRI brain today. Respiratory: Acute hypoxic respiratory failure-resolved ARDS-improving Aspiration pneumonitis History of COPD Self extubated 01/14, tolerating well Nasal cannula to maintain saturations greater than equal to 92% currently on 2 L Incentive spirometry while awake Bronchodilator therapy every 6 hours and as needed Head of bed at 30 CXR resolving infiltrates Cardiovascular: Sinus tachycardia Septic shock-resolved Hypertension Grade 2 diastolic dysfunction Off lisinopril 5 mill grams by mouth daily/home medication Currently on clonidine 0.3 mg grams po [id number] Echo 01/09 revealed EF 55-60%. No regional wall motion abnormality. Grade 2 diastolic dysfunction. IV metoprolol 2.5 mg every 6 hours when necessary for HR>110 Renal: Acute kidney injury Likely prerenal/ATN secondary to sepsis. Strict I/Os, [place] Every hour urine outputs Creat continues to improve, Na improved 148 today Creat normalized Nephrology signed off. Continue quarter normal saline FEN/GI: Acute protein calorie malnutritionmild Hyperammonia Trend BMP Protonix 40 mg IV q24 Colace twice a day/Senokot twice a day and lactulose twice a day for bowel regimen. Continue NGT feeding with Glucerna 1.5 goal 50 cc an hour per nutrition recommends. Thickened liquid diet with one can Glucerna 3 times a day with trickle feeds with Glucerna 1.5 at 20 cc an hour Heme/ID: Left foot nonhealing ulceration Septic shock- resolved. History of splenectomy Thrombocytosis Right Cephalic superficial venous thrombus Continue aspirin 81 mg daily for thrombocytosis likely secondary splenectomy. Slowly resolving Continue heparin 5000 every 8 for superficial upper extremity thrombus 01/16 - blood cultures 2 - no growth 01/14 - sputum -ESBL positive Klebsiella 01/13 - blood cultures 2 14: Negative//MRSA 01/10/17 blood cultures 2 negative 01/02 sputum: NGTD 01/02 blood: NGTD 01/02 urine: NGTD. 01/02 heel wound culture enterococcus sensitive to ampicillin Stopped Zosyn/vancomycin 01/16. Ertapenem for ESBL+ Kleb pneumo x 7days started ID: Dr. Ospina following Santyl daily for foot ulcer Endocrine: Diabetes Hyperglycemia of critical illness -- SSI, medium scale, every 6 Holding Janumet one tablet twice a day and glyburide 10 mg by mouth twice a day MSK: Left second toe amputation No acute issues Prophylaxis: GI Prophylaxis Protonix DVT Prophylaxis --SCDs Subcutaneous heparin 5000 units 3 times a day Critical Care: The total critical care time was 35 minutes. Time to perform other separately billable procedures was not included in the critical care time. Cleveland Vera MD Jan 20, 2017 10:49 Cleveland Vera MD Jan 20, 2017 10:49
[2017-01-20] MEDS ORDERED: LORazepam 2 MG/ML VIAL IV PUSH ONE (11:15)
[2017-01-20] MEDS ORDERED: GADODIAMIDE PF 287 MG/ML 20 ML VIAL (for RAD MRI) IV ONE (11:24)
--- NOTE | 2017-01-20 12:03 | RADRPT ---
EXAM DATE/TIME: 01/20/2017 11:03 [facility] COMPARISON: CT BRAIN W/O CONTRAST, January 02, 2017, 22:08. MRI BRAIN W/O CONTRAST, January 13, 2017, 10:49. INDICATIONS : Altered mental status. CONTRAST: 20 cc Omniscan (gadodiamide) IV MEDICAL HISTORY : Hypertension. Chronic obstructive pulmonary disease. Diabetes mellitus type 2. SURGICAL HISTORY : Splenectomy. Orthopaedic ENCOUNTER: Initial ACUITY: 1 day PAIN SCORE: 0/10 LOCATION: cranial TECHNIQUE: Multiplanar, multisequence MRI of the brain was performed both prior to and following the administrat ion of paramagnetic contrast. FINDINGS: CEREBRUM: There is increased signal at the inferior medial left frontal lobe and the inferior mid left temporal lobe. These findings are stable. These are seen best on the flair images. These are in a good locati ons for post traumatic injuries. The ventricles are normal for age. No evidence of midline shift, ma ss lesion, hemorrhage or acute infarction. No extraaxial fluid collections are seen. The pituitary gland and suprasellar cistern are normal in configuration. WHITE MATTER: No significant signal abnormalities are seen in the white matter. POSTERIOR FOSSA: The cerebellum and brainstem are intact. The 4th ventricle is midline. The cerebellopontine angle is unremarkable. The cerebellar tonsils are normal in position. DIFFUSION IMAGING: No focal areas of restricted diffusion are seen. No evidence of acute infarction. EXTRACRANIAL: The visualized portions of the orbits and paranasal sinuses are unremarkable. There is increased sign al within the mastoid air cells bilaterally. POST-CONTRAST: No abnormal areas of parenchymal or dural enhancement. No evidence of blood-brain barrier breakdown. CONCLUSION: 1. No acute abnormality or significant change is seen. 2. There is a encephalomalacia at the inferior left frontal and temporal lobes. These are good locati ons for prior posttraumatic injuries. 3. Increased signal/fluid in the mastoid air cells bilaterally. Pk Rivera MD on January 20, 2017 at 11:56 Board Certified Radiologist. This report was verified electronically.
[2017-01-20] MEDS: ERTAPENEM INJ 1,000 MG in SODIUM CHLORIDE 0.9% INJ 100 ML IV SCH (17:54)
[2017-01-20] MEDS: METOPROLOL TARTRATE 5 MG/5 ML VIAL IV PUSH PRN (20:39)
[2017-01-20] MEDS: PANTOPRAZOLE SODIUM 40 MG VIAL IV PUSH SCH (21:39)
[2017-01-21] VITALS (17 sets, daily range): BP systolic 124–148; BP diastolic 74–84; PULSE 104–126; RESP 21–27; TEMP 98.8–100.4; O2SAT 96–100
[2017-01-21] MEDS: INSULIN NovoLIN REGULAR SUPPLEMENTAL SCALE SQ SCH ×6 (00:10→20:00)
[2017-01-21] MEDS: RESP: ALBUTEROL 2.5 MG/IPRATROPIUM 0.5 MG NEB (SCH) NEB ×4 (03:24→20:42)
[2017-01-21] MEDS: METOPROLOL TARTRATE 5 MG/5 ML VIAL IV PUSH PRN ×2 (04:24→11:17)
[2017-01-21] MEDS: HEPARIN SODIUM - SQ 10,000 UNITS/ML VIAL SQ SCH (04:31)
[2017-01-21] MEDS: cloNIDine HCL 0.3 MG TAB PO SCH ×3 (04:31→22:31)
[2017-01-21] MEDS: ARTIFICIAL TEARS OPTH SOLN 15 ML BTL EACH EYE SCH ×3 (04:31→20:36)
[2017-01-21] MEDS: FREE WATER G-TUBE SCH ×4 (04:31→18:00)
--- NOTE | 2017-01-21 08:11 | HHI.CCPN ---
Subjective Remarks/Hospital Course This is a 56-year-old male who originally came into the emergency department with his left foot wound. He was admitted for IV antibiotics and cellulitis, possible osteomyelitis of the foot. He was seen by Dr. Ospina with infectious disease who felt that this was likely chronic osteo and not acute. Overnight last night he became acutely delirious, and has a very strong alcohol history, and was thought most likely to be an alcohol withdrawal. He was given Ativan. This morning, he was much more somnolent. This afternoon a rapid response was called because the patient was unresponsive. When I arrived, the patient had a oxygen saturation of 30% with a good plethysmograph waveform. He was emergently transferred to the ICU and intubated. He had a chest x-ray showing bilateral pulmonary protrudes in all lobes, more suggestive of ARDS. The patient was tachycardic, febrile, very septic appearing. He is toxic. Unfortunately, the patient is unresponsive and cannot provide any additional history. 01/03: remains intubated, sedated. persistent bilateral infiltrates. likely ARDS. remains on vasopressors. 01/04: Continued to spike fever 101.3 Tmax. Chest x-ray shows continued bilateral infiltrates/ARDS. Remains on Levophed at 4 mics per minute. Currently on Zosyn and micafungin, vancomycin added for additional gram- positive coverage 01/05: Continues to be hypoxemic currently on FiO2 65%. Chest x-ray shows worsening bilateral pulmonary edema. Fever trending down currently on vancomycin Zosyn and micafungin. Azithromycin added for atypical coverage. I will also increase PEEP to 12, stop IV fluids and give 2 mg IV Bumex 01/06: FiO2 down to 45%. PEEP remains at 12. 2.8 L urine output creatinine slightly improved to 1.8. Received 2 mg Bumex yesterday, nephrology has started scheduled Bumex 1 mg every 12 today. Chest x-ray shows persistent ARDS/ pulmonary edema 01/07: net euvolemic overnight. clinically appears volume overloaded still. failed CPAP for tachypnea yesterday. afebrile. oxygenation stable. 01/08: net euvolemic overnight again. still volume overloaded. Cr slightly elevated. metabolic alkalosis persists. 01/09: FiO2 down to 45%, achieving negative fluid balance. Urine output more than 4 L. Creatinine remained stable 01/10:: Patient remains on 45% oxygen and PEEP of 8, heavily sedated with propofol fentanyl and Precedex. Warren fever of 102. Hemodynamically stable 01/11: Maintaining oxygenation on the PEEP of 8 and FiO2 35%. Otherwise remains sedated with Precedex and fentanyl. Highest temperature was yesterday before noon 102 no fever now. WBC count is slightly improved. Patient is being observed off antibiotics today 01/12: Currently on PSV trial with PEEP of 8. Tmax 100.8. Positive BM 2. 01/13: Afebrile. Still not responsive. MRI brain/EEG ordered. Tolerating tube feeds. Positive BM. Tolerating PSV trials x 12 hours yesterday. 01/14: Tmax 100.8. Currently 99.8. Restarted antibiotics. Panculture. Tolerating PSV trials but not waking up and falling commands. MRI brain negative. EEG negative. 01/15: Tmax 101.6. Currently 100.1. Self extubated overnight. Currently on room air. Arousable but nonverbal. Protecting airway Not verbal. MRI brain showed no acute signs of CVA or hemorrhage/EEG negative. 01/16: Tmax 101.1. Currently 99.3. On 4 L nasal cannula. Mouth is open. Passed swallow evaluation. Nods head appropriately to questions. 01/17: Breathing comfortably. Not following commands. Na 152, BUN creat improving. PT/OT ordered 01/18: Respiratory status remained stable. Tachycardic. WBC slightly increased 10 18.6. CXR improving. Not following commands or verbalizing 01/19: Tmax 99.9. Currently 99.6. One bowel movement. Tolerating tube feeding. 01/20: Tmax 99.6. Currently 99. Attempting to mumble words today. MRI brain pending. Positive BM 2. Tolerating tube feeding Subjective: 01/21: CURRENT TEMPERATURE 99.6. MRI brain yesterday revealed left frontal/ temporal encephalomalacia. Patient still quite weak upper and lower extremity' s. Doubt ascending neuromuscular disorder but we'll consult neurology today. EEG ordered. Lumbar puncture ordered as well. Tolerating tube feeding. Positive BM. Objective Vital Signs Date Time Temp Pulse Resp B/P Pulse Ox O2 Delivery O2 Flow Rate FiO2 01/21/17 06:00 109 01/21/17 04:00 99.4 24 136/78 97 01/20/17 20:11 Nasal Cannula 2.00 Intake and Output 01/20/17 01/20/17 01/21/17 08:00 16:00 00:00 Intake Total 382 ml 233 ml 344 ml Output Total 750 ml 950 ml 450 ml Balance -368 ml -717 ml -106 ml Result Diagram: 01/20/17 0341 01/20/17 0341 Imaging Last Impressions Brain MRI 01/20/17 0000 Signed Impressions: Service Date/Time: Friday, January 20, 2017 11:03 - CONCLUSION: 1. No acute abnormality or significant change is seen. 2. There is a encephalomalacia at the inferior left frontal and temporal lobes. These are good locations for prior posttraumatic injuries. 3. Increased signal/fluid in the mastoid air cells bilaterally. Pk Rivera MD Chest X-Ray 01/18/17 0600 Signed Impressions: Service Date/Time: Wednesday, January 18, 2017 03:35 - CONCLUSION: Continued improvement of the left lung infiltrate. Issa Wills Jr., MD Upper Extremity Ultrasound 01/14/17 0000 Signed Impressions: Service Date/Time: Saturday, January 14, 2017 15:01 - CONCLUSION: Thrombus is seen within the right cephalic vein. Lela Stephens MD Lower Extremity Ultrasound 01/14/17 0000 Signed Impressions: Service Date/Time: Saturday, January 14, 2017 14:44 - CONCLUSION: No evidence of deep venous thrombosis within the lower extremities. Christian Antoine MD Chest CT 01/02/17 1645 Signed Impressions: Service Date/Time: Monday, January 02, 2017 22:10 - CONCLUSION: 1. Acute development of bilateral airspace disease as above with some peripheral sparing , especially at the bases. Findings nonspecific. Patient may be developing ARDS/diffuse alveolar damage. Other considerations include infection and severe hypersensitivity type reaction. 2. Endotracheal tube, nasogastric tube and left central line in satisfactory position. Christopher Lagos MD Head CT 01/02/17 0000 Signed Impressions: Service Date/Time: Monday, January 02, 2017 22:08 - CONCLUSION: Normal examination for a patient of this age. No significant change has occurred. Christopher Lagos MD Lower Extremity MRI 01/01/17 0000 Signed Impressions: Service Date/Time: Sunday, January 01, 2017 20:03 - CONCLUSION: Subcutaneous soft tissue edema distal leg. No evidence of osteomyelitis of the tibia or fibula. Issa Christiansen MD Foot X-Ray 01/01/17 0000 Signed Impressions: Service Date/Time: Sunday, January 01, 2017 04:49 - CONCLUSION: No acute abnormality. Prior left toe amputation. Issa Wills Jr., MD Foot MRI 01/01/17 0000 Signed Impressions: Service Date/Time: Sunday, January 01, 2017 20:03 - CONCLUSION: 1. Prominent subcutaneous soft tissue edema about the foot and ankle. 2. Abnormal signal in the distal metatarsal head of the 4th digit, characterized by T1 and T2 prolongation. Differential considerations include healing fracture and osteomyelitis. 3. Probable Aburto's neuroma in the interspace between the distal 2nd and 3rd metatarsal bones. Issa Christiansen MD Abdomen/Pelvis CT [id number]/31/161938 Signed Impressions: Service Date/Time: Saturday, December 31, 2016 22:46 - CONCLUSION: 1. No acute abnormality to explain the patient's pain. 2. Colonic diverticulosis. No acute inflammation. 3. Suspected small calcified gallstone. The gallbladder is nondilated. 4. 4.2 cm left adrenal gland adenoma. Issa Wills Jr., MD Abdomen X-Ray 12/31/16 0000 Signed Impressions: Service Date/Time: Saturday, December 31, 2016 19:25 - CONCLUSION: Unremarkable study except for stool. Lela Stephens MD Objective Remarks GENERAL: 56-year-old male, lying in bed in no acute distress HEENT: NC/AT. Pupils equal, round, reactive, conjugate about 3 mm bilaterally. Mucous membranes are moist and pink. Oropharynx without erythema or exudates NECK: Obese neck. No thyromegaly or lymphadenopathy. CHEST: Diminished breath sounds bilaterally. Few crackles appreciated throughout all lung aguirre. No wheezing. CARDIOVASCULAR: Tachycardic in 120s. S1, S2 no S4 without murmur ABDOMEN: Obese, soft, nontender, nondistended. No guarding. Hypoactive bowel sounds appreciated MUSCULOSKELETAL: 1+ peripheral edema. Distal pulses 2+. There is a small area on his left heel with a nonhealing ulcer. NEUROLOGICAL: Able to move all 4 extremities spontaneously but very weakly. Eyes open spontaneously, and intermittently follows verbal commands A/P Assessment and Plan Neuro/Psych: Metabolic encephalopathy Alcohol withdrawal Agitated delirium Chronic narcotic use Post traumatic stress disorder Precedex drip had been off since 2 PM 01/16 Scheduled Ativan 1 mg by mouth every 8 hours - hold with altered mental status Seroquel 50mg po q8hr - hold with altered mental status Off morphine sulfate 60 mg twice a day and oxycodone 30 mg twice a day/home medication Off Lyrica 150 milligrams by mouth twice a day IV thiamine, multivitamin and folate 01/13 MRI brain was negative for acute intracranial findings/EEG showed moderate to severe encephalopathy Negative CT head 01/02 ammonia 20 on 01/02. 37 01/13. Currently 18 01/19 MRI brain 01/20 revealed left frontal/temporal encephalomalacia. Bilateral mastoid information. Neurology consult for further recommendations regarding workup Respiratory: Acute hypoxic respiratory failure-resolved ARDS-improving Aspiration pneumonitis History of COPD Self extubated 01/14, tolerating well Nasal cannula to maintain saturations greater than equal to 92% currently on 2 L Incentive spirometry while awake Bronchodilator therapy every 6 hours and as needed Head of bed at 30 CXR resolving infiltrates Cardiovascular: Sinus tachycardia Septic shock-resolved Hypertension Grade 2 diastolic dysfunction Off lisinopril 5 mill grams by mouth daily/home medication Currently on clonidine 0.3 mg grams po [id number] Echo 01/09 revealed EF 55-60%. No regional wall motion abnormality. Grade 2 diastolic dysfunction. IV metoprolol 2.5 mg every 6 hours when necessary for HR>110 Renal: Acute kidney injury - resolving Likely prerenal/ATN secondary to sepsis. Strict I/Os, [place] Monitor urine output Creat continues to improve Nephrology signed off. FEN/GI: Acute protein calorie malnutritionmild Hyperammonia Trend BMP Protonix 40 mg IV q24 Colace twice a day/Senokot twice a day and lactulose twice a day for bowel regimen. Continue NGT feeding with Glucerna 1.5 goal 50 cc an hour per nutrition recommends. Thickened liquid diet with one can Glucerna 3 times a day with trickle feeds with Glucerna 1.5 at 20 cc an hour Heme/ID: Left foot nonhealing ulceration Septic shock- resolved. History of splenectomy Thrombocytosis - resolving Leukocytosis Normocytic anemia Right Cephalic superficial venous thrombus Continue aspirin 81 mg daily for thrombocytosis likely secondary status post splenectomy. Slowly resolving. Noted hold aspirin with a lumbar puncture coming Continue heparin 5000 every 8 for superficial upper extremity thrombus. Hold secondary to lumbar puncture ordered 01/16 - blood cultures 2 - no growth 01/14 - sputum -ESBL positive Klebsiella 01/13 - blood cultures 2 14: Negative//MRSA 01/10/17 blood cultures 2 negative 01/02 sputum: NGTD 01/02 blood: NGTD 01/02 urine: NGTD. 01/02 heel wound culture enterococcus sensitive to ampicillin Stopped Zosyn/vancomycin 01/16. Ertapenem for ESBL+ Kleb pneumo x 7days started ID: Dr. Ospina following Santyl daily for foot ulcer Endocrine: Diabetes Hyperglycemia of critical illness -- SSI, medium scale, every 6 Holding Janumet one tablet twice a day and glyburide 10 mg by mouth twice a day MSK: Left second toe amputation No acute issues Prophylaxis: GI Prophylaxis Protonix DVT Prophylaxis --SCDs Subcutaneous heparin 5000 units 3 times a day currently on hold Critical Care: The total critical care time was 35 minutes. Time to perform other separately billable procedures was not included in the critical care time. Cleveland Vera MD Jan 21, 2017 08:11
[2017-01-21] MEDS: CHLORHEXIDINE 0.12% (ORAL KIT) 15 ML CUP MT SCH ×2 (08:32→22:31)
[2017-01-21] MEDS: THIAMINE HCL 100 MG TAB PO SCH (08:33)
[2017-01-21] MEDS: SODIUM CHLORIDE 0.9% FLUSH 10 ML FLUSH IV FLUSH SCH ×2 (08:33→20:37)
[2017-01-21] MEDS: MULTIVITAMIN TAB PO SCH (08:33)
[2017-01-21] MEDS: COLLAGENASE OINT 30 GM TUBE TOPICAL SCH (08:34)
[2017-01-21] MEDS: SENNOSIDES SYRUP 8.8 MG/5 ML CUP PO SCH ×2 (09:00→20:36)
[2017-01-21] MEDS: LACTULOSE SYRUP 20 GM/30 ML CUP PO SCH (09:00)
[2017-01-21] MEDS: DOCUSATE SODIUM 100 MG/10 ML UDC PO SCH ×2 (09:00→20:36)
[2017-01-21 13:25] LABS: AUTOMATED NEUTROPHIL # 14.3 TH/MM3 (1.8-7.7); BASOPHIL # 0.2 TH/MM3 (0-0.2); BASOPHIL % 1.1 % (0.0-2.0); EOSINOPHIL # 1.2 TH/MM3 (0-0.4); EOSINOPHIL % 5.6 % (0.0-4.0); HEMATOCRIT 30.3 % (39.0-51.0); HEMO FLAGS DIFF FINAL; LYMPH % 17.1 % (9.0-44.0); LYMPHOCYTE # 3.5 TH/MM3 (1.0-4.8); MEAN CELL VOLUME 96.6 FL (80.0-100.0); MEAN CORPUSCULAR HEMOGLOBIN 32.8 PG (27.0-34.0); MONO % 6.9 % (0.0-8.0); NEUT % 69.3 % (16.0-70.0); PLATELET COUNT 564 TH/MM3 (150-450); RED BLOOD COUNT 3.14 MIL/MM3 (4.50-5.90); RED CELL DISTRIBUTION WIDTH 13.8 % (11.6-17.2); WHITE BLOOD COUNT 20.7 TH/MM3 (4.0-11.0)
[2017-01-21 13:36] LABS: APTT (PATIENT) 28.9 SEC (24.3-30.1); PROTHROMBIN TIME - PATIENT 10.5 SEC (9.8-11.6)
[2017-01-21 13:52] LABS: BICARBONATE 24.6 MEQ/L (21.0-32.0); POTASSIUM 4.3 MEQ/L (3.5-5.1)
[2017-01-21] MEDS: ERTAPENEM INJ 1,000 MG in SODIUM CHLORIDE 0.9% INJ 100 ML IV SCH (18:18)
--- NOTE | 2017-01-21 18:22 | HHI.IDPN ---
Subjective Subjective Remarks low grade fever and MS change. Obtunded Speech unitelligible Antibiotics ertapenem Lines Line sites ok. Past Medical History BM, ETOHism tobaccoism Allergies: Coded Allergies: Toradol (Verified Allergy, Intermediate, Headache, 12/31/16) *MDRO Multi-Drug Resistant Organism (Verified Adverse Reaction, Unknown, ) ESBL K. pneumoniae (sputum) - 01/14/17 Objective . Vital Signs Date Time Temp Pulse Resp B/P Pulse Ox O2 Delivery O2 Flow Rate FiO2 01/21/17 16:41 99 Nasal Cannula 2.00 01/21/17 16:00 108 01/21/17 16:00 99.8 108 23 137/79 96 01/21/17 14:00 104 01/21/17 12:00 100.1 109 23 129/84 98 01/21/17 12:00 109 01/21/17 10:00 124 01/21/17 08:52 98 Nasal Cannula 2.00 01/21/17 08:00 114 01/21/17 08:00 100.4 116 25 145/80 97 01/21/17 06:00 109 01/21/17 04:00 99.4 126 24 136/78 97 01/21/17 04:00 126 01/21/17 02:00 119 01/21/17 00:00 98.8 115 23 129/81 96 01/21/17 00:00 115 01/20/17 22:00 121 01/20/17 20:11 93 Nasal Cannula 2.00 01/20/17 20:00 129 01/20/17 20:00 98.7 129 26 138/77 95 01/20/17 01/20/17 01/21/17 15:00 23:00 07:00 Intake Total 233 ml 344 ml 912 ml Output Total 950 ml 450 ml 550 ml Balance -717 ml -106 ml 362 ml IV Total 0 ml 134 ml 0 ml Tube Feeding 233 ml 210 ml 312 ml Other 600 ml Output Urine Total 950 ml 450 ml 550 ml # Bowel Movements 1 1 . Laboratory Tests Test 01/19/17 01/20/17 01/21/17 18:10 03:41 13:05 White Blood Count 17.9 TH/MM3 17.4 TH/MM3 20.7 TH/MM3 Red Blood Count 3.12 MIL/MM3 3.26 MIL/MM3 3.14 MIL/MM3 Hemoglobin 9.9 GM/DL 10.4 GM/DL 10.3 GM/DL Hematocrit 30.2 % 31.5 % 30.3 % Mean Corpuscular Volume 96.8 FL 96.6 FL 96.6 FL Mean Corpuscular Hemoglobin 31.7 PG 31.8 PG 32.8 PG Mean Corpuscular Hemoglobin 32.7 % 32.9 % 34.0 % Concent Red Cell Distribution Width 13.7 % 13.6 % 13.8 % Platelet Count 574 TH/MM3 566 TH/MM3 564 TH/MM3 Mean Platelet Volume 10.6 FL 11.1 FL 11.2 FL Neutrophils (%) (Auto) 60.4 % 58.8 % 69.3 % Lymphocytes (%) (Auto) 22.6 % 22.2 % 17.1 % Monocytes (%) (Auto) 7.0 % 7.6 % 6.9 % Eosinophils (%) (Auto) 8.9 % 10.0 % 5.6 % Basophils (%) (Auto) 1.1 % 1.4 % 1.1 % Neutrophils # (Auto) 10.8 TH/MM3 10.3 TH/MM3 14.3 TH/MM3 Lymphocytes # (Auto) 4.0 TH/MM3 3.9 TH/MM3 3.5 TH/MM3 Monocytes # (Auto) 1.2 TH/MM3 1.3 TH/MM3 1.4 TH/MM3 Eosinophils # (Auto) 1.6 TH/MM3 1.7 TH/MM3 1.2 TH/MM3 Basophils # (Auto) 0.2 TH/MM3 0.2 TH/MM3 0.2 TH/MM3 CBC Comment DIFF FINAL DIFF FINAL DIFF FINAL Differential Comment Erythrocyte Sedimentation Rate GREATER THAN 140 mm/hr Laboratory Tests Test 01/19/17 01/20/17 01/21/17 18:10 03:41 13:05 Sodium Level 143 MEQ/L 144 MEQ/L 142 MEQ/L Potassium Level 3.7 MEQ/L 3.7 MEQ/L 4.3 MEQ/L Chloride Level 111 MEQ/L 112 MEQ/L 110 MEQ/L Carbon Dioxide Level 21.9 MEQ/L 22.3 MEQ/L 24.6 MEQ/L Anion Gap 10 MEQ/L 10 MEQ/L 7 MEQ/L Blood Urea Nitrogen 29 MG/DL 30 MG/DL 30 MG/DL Creatinine 1.04 MG/DL 1.07 MG/DL 1.16 MG/DL Estimat Glomerular Filtration 74 ML/MIN 72 ML/MIN 65 ML/MIN Rate Random Glucose 237 MG/DL 240 MG/DL 294 MG/DL Calcium Level 8.8 MG/DL 9.3 MG/DL 9.2 MG/DL Ammonia 18 MCMOL/L Phosphorus Level 3.3 MG/DL Magnesium Level 2.2 MG/DL Total Bilirubin 0.2 MG/DL Aspartate Amino Transf 13 U/L (AST/SGOT) Alanine Aminotransferase 13 U/L (ALT/SGPT) Alkaline Phosphatase 92 U/L Total Protein 7.4 GM/DL Albumin 2.9 GM/DL C-Reactive Protein 10.20 MG/DL Vitamin B12 Level 588 PG/ML Imaging Last Impressions Brain MRI 01/20/17 0000 Signed Impressions: Service Date/Time: Friday, January 20, 2017 11:03 - CONCLUSION: 1. No acute abnormality or significant change is seen. 2. There is a encephalomalacia at the inferior left frontal and temporal lobes. These are good locations for prior posttraumatic injuries. 3. Increased signal/fluid in the mastoid air cells bilaterally. Pk Rivera MD Chest X-Ray 01/18/17 0600 Signed Impressions: Service Date/Time: Wednesday, January 18, 2017 03:35 - CONCLUSION: Continued improvement of the left lung infiltrate. Issa Wills Jr., MD Upper Extremity Ultrasound 01/14/17 0000 Signed Impressions: Service Date/Time: Saturday, January 14, 2017 15:01 - CONCLUSION: Thrombus is seen within the right cephalic vein. Lela Stephens MD Lower Extremity Ultrasound 01/14/17 0000 Signed Impressions: Service Date/Time: Saturday, January 14, 2017 14:44 - CONCLUSION: No evidence of deep venous thrombosis within the lower extremities. Christian Antoine MD Chest CT 01/02/17 1645 Signed Impressions: Service Date/Time: Monday, January 02, 2017 22:10 - CONCLUSION: 1. Acute development of bilateral airspace disease as above with some peripheral sparing , especially at the bases. Findings nonspecific. Patient may be developing ARDS/diffuse alveolar damage. Other considerations include infection and severe hypersensitivity type reaction. 2. Endotracheal tube, nasogastric tube and left central line in satisfactory position. Christopher Lagos MD Head CT 4/5/17 0000 Signed Impressions: Service Date/Time: Monday, January 02, 2017 22:08 - CONCLUSION: Normal examination for a patient of this age. No significant change has occurred. Christopher Lagos MD Lower Extremity MRI 01/01/17 Signed Impressions: Service Date/Time: Sunday, January 01, 2017 20:03 - CONCLUSION: Subcutaneous soft tissue edema distal leg. No evidence of osteomyelitis of the tibia or fibula. Issa Christiansen MD Foot X-Ray 01/01/17 Signed Impressions: Service Date/Time: Sunday, January 01, 2017 04:49 - CONCLUSION: No acute abnormality. Prior left toe amputation. Issa Wills Jr., MD Foot MRI 01/01/17 Signed Impressions: Service Date/Time: Sunday, January 01, 2017 20:03 - CONCLUSION: 1. Prominent subcutaneous soft tissue edema about the foot and ankle. 2. Abnormal signal in the distal metatarsal head of the 4th digit, characterized by T1 and T2 prolongation. Differential considerations include healing fracture and osteomyelitis. 3. Probable Aburto's neuroma in the interspace between the distal 2nd and 3rd metatarsal bones. Issa Christiansen MD Abdomen/Pelvis CT 12/31/161938 Signed Impressions: Service Date/Time: Saturday, December 31, 2016 22:46 - CONCLUSION: 1. No acute abnormality to explain the patient's pain. 2. Colonic diverticulosis. No acute inflammation. 3. Suspected small calcified gallstone. The gallbladder is nondilated. 4. 4.2 cm left adrenal gland adenoma. Issa Wills Jr., MD Abdomen X-Ray 12/31/16 Signed Impressions: Service Date/Time: Saturday, December 31, 2016 19:25 - CONCLUSION: Unremarkable study except for stool. Lela Stephens MD Physical Exam CONSTITUTIONAL/GENERAL: This is an obese patient, in no apparent distress. TUBES/LINES/DRAINS: SKIN: No jaundice, rashes, or lesions. Scaly facila rash mostly cw seboreic dermatitis EYES: Pupils equal and round and reactive. Extraocular motions intact. No scleral icterus. No injection or drainage. Fundi not examined. ENT: Oral mucosae moist, dentition poor NECK: Trachea midline. Supple, nontender. CARDIOVASCULAR: Regular rate and rhythm without murmurs, gallops, or rubs. No JVD. Peripheral pulses symmetric. RESPIRATORY/CHEST: Symmetric, unlabored respirations. Breath sounds equal bilaterally. GASTROINTESTINAL: Abdomen soft, non-tender, nondistended. Bowel sounds present. GENITOURINARY: Without palpable bladder distension. Saunders catheter in place with clear yellow urine MUSCULOSKELETAL: Extremities without clubbing, cyanosis, or edema. NEUROLOGICAL: eyes opened, makes eye contact , unintelligible verbal response moves spontaneously all extremeties PSYCHIATRIC: unable to assess Assessment & Plan Remarks Septic shock likely secondary to aspiration pneumonia, resolved. Fever: likely 2/2 PNA Aspiration PNA - growing ESBL + Kleb pneumo Obstructive uropathy and ARF on presentation - saunders placed on admission Low grade coag neg staph bacteremia - doubt clin significance CULTURE GROWING STAPH SP COAGULASE NEGATIVE X 2 Acute renal failurelikely post obstructive Acute urinary retention on admission Left heel chronic diabetic ulcer, no e/o osteo of L heel sp b/s debridement - growing enterococcus along with skin ricky from surface clx ; doubt clin significance - this is likely not the source of pt possible sepsis Persistent low grade fever Woorsening leukocytosis right cephalic vein trombosis - also can contribute to fever Recs cont Ertapenem for ESBL+ Kleb pneumo x 7days Follow WBC Follow clinically. Mi Ospina MD Jan 21, 2017 18:22
--- NOTE | 2017-01-21 18:38 | MG ---
cc: ROSI HOOKER M.D. Lab No: Date: 01/21/2017 Age: Sex: M Race: DATE OF STUDY 01/21/2017 TEST NUMBER [id number] DESCRIPTION The background rhythm reveals generalized slowing in the theta frequency roughly 6 Hz. Amplitude is about 20-30 microvolts. There is fairly frequent muscle artifact. There are no lateralizing features. There are no epileptiform discharges. Photic stimulation results in a poor driving response. INTERPRETATION Abnormal study consistent with a moderate to severe degree of encephalopathy. MD RONNY Johnston/BENNY /5:12 PM /6:36 PM
[2017-01-21] MEDS: PANTOPRAZOLE SODIUM 40 MG VIAL IV PUSH SCH (20:36)
[2017-01-22] VITALS (14 sets, daily range): BP systolic 117–138; BP diastolic 73–80; PULSE 94–121; RESP 17–26; TEMP 98.1–99.3; O2SAT 95–100
[2017-01-22] MEDS: RESP: ALBUTEROL 2.5 MG/IPRATROPIUM 0.5 MG NEB (SCH) NEB ×4 (03:34→20:58)
[2017-01-22] MEDS: INSULIN NovoLIN REGULAR SUPPLEMENTAL SCALE SQ SCH ×6 (03:59→20:00)
[2017-01-22 04:30] LABS: AUTOMATED NEUTROPHIL # 9.8 TH/MM3 (1.8-7.7); BASOPHIL # 0.2 TH/MM3 (0-0.2); BASOPHIL % 1.3 % (0.0-2.0); EOSINOPHIL # 1.3 TH/MM3 (0-0.4); HEMATOCRIT 29.8 % (39.0-51.0); HEMO FLAGS DIFF FINAL; LYMPH % 20.5 % (9.0-44.0); LYMPHOCYTE # 3.3 TH/MM3 (1.0-4.8); MEAN CELL VOLUME 96.2 FL (80.0-100.0); MEAN CORPUSCULAR HEMOGLOBIN 32.7 PG (27.0-34.0); MONO % 8.9 % (0.0-8.0); NEUT % 61.3 % (16.0-70.0); PLATELET COUNT 554 TH/MM3 (150-450); RED CELL DISTRIBUTION WIDTH 13.7 % (11.6-17.2); WHITE BLOOD COUNT 15.9 TH/MM3 (4.0-11.0)
[2017-01-22 04:49] LABS: BICARBONATE 25.7 MEQ/L (21.0-32.0); MAGNESIUM 2.2 MG/DL (1.5-2.5)
[2017-01-22] MEDS: ARTIFICIAL TEARS OPTH SOLN 15 ML BTL EACH EYE SCH ×3 (06:00→20:26)
[2017-01-22] MEDS: FREE WATER G-TUBE SCH ×5 (06:00→23:55)
[2017-01-22] MEDS: cloNIDine HCL 0.3 MG TAB PO SCH ×3 (06:51→20:25)
[2017-01-22] MEDS: CHLORHEXIDINE 0.12% (ORAL KIT) 15 ML CUP MT SCH ×2 (08:00→19:51)
[2017-01-22] MEDS: DOCUSATE SODIUM 100 MG/10 ML UDC PO SCH ×2 (08:08→20:25)
[2017-01-22] MEDS: LACTULOSE SYRUP 20 GM/30 ML CUP PO SCH (08:08)
[2017-01-22] MEDS: SODIUM CHLORIDE 0.9% FLUSH 10 ML FLUSH IV FLUSH SCH ×2 (08:08→20:28)
[2017-01-22] MEDS: MULTIVITAMIN TAB PO SCH (08:09)
[2017-01-22] MEDS: THIAMINE HCL 100 MG TAB PO SCH (08:09)
[2017-01-22] MEDS: COLLAGENASE OINT 30 GM TUBE TOPICAL SCH (08:09)
[2017-01-22] MEDS: SENNOSIDES SYRUP 8.8 MG/5 ML CUP PO SCH ×2 (08:09→20:25)
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
[2017-01-22 11:08] LABS: RAPID PLASMA REAGIN SCREEN NON-REACTIVE (NON-REACTVE)
[2017-01-22] MEDS: INSULIN DETEMIR 100 UNITS/ML VIAL SQ SCH ×2 (11:26→20:25)
[2017-01-22] MEDS: METOPROLOL TARTRATE 5 MG/5 ML VIAL IV PUSH PRN (12:47)
[2017-01-22] MEDS: ERYTHROMYCIN 2% TOPICAL SCH ×2 (15:23→20:27)
[2017-01-22] MEDS: ERTAPENEM INJ 1,000 MG in SODIUM CHLORIDE 0.9% INJ 100 ML IV SCH (18:16)
[2017-01-22] MEDS: PANTOPRAZOLE SODIUM 40 MG VIAL IV PUSH SCH (20:25)
[2017-01-23] VITALS (14 sets, daily range): BP systolic 125–144; BP diastolic 70–84; PULSE 99–121; RESP 15–20; TEMP 98–98.8; O2SAT 94–100
[2017-01-23] MEDS: RESP: ALBUTEROL 2.5 MG/IPRATROPIUM 0.5 MG NEB (SCH) NEB ×4 (03:18→20:53)
[2017-01-23] MEDS: INSULIN NovoLIN REGULAR SUPPLEMENTAL SCALE SQ SCH ×7 (04:00→23:42)
[2017-01-23] MEDS: cloNIDine HCL 0.3 MG TAB PO SCH ×3 (05:09→21:30)
[2017-01-23] MEDS: ARTIFICIAL TEARS OPTH SOLN 15 ML BTL EACH EYE SCH ×3 (05:09→21:30)
[2017-01-23] MEDS: FREE WATER G-TUBE SCH ×4 (05:09→23:42)
[2017-01-23 06:28] LABS: AUTOMATED NEUTROPHIL # 8.7 TH/MM3 (1.8-7.7); BASOPHIL # 0.2 TH/MM3 (0-0.2); BASOPHIL % 1.2 % (0.0-2.0); EOSINOPHIL # 1.4 TH/MM3 (0-0.4); EOSINOPHIL % 8.8 % (0.0-4.0); HEMO FLAGS DIFF FINAL; LYMPH % 24.7 % (9.0-44.0); LYMPHOCYTE # 3.8 TH/MM3 (1.0-4.8); MEAN CELL VOLUME 96.8 FL (80.0-100.0); MEAN CORPUSCULAR HGB CONC 33.1 % (32.0-36.0); MONO % 9.2 % (0.0-8.0); NEUT % 56.1 % (16.0-70.0); PLATELET COUNT 569 TH/MM3 (150-450); RED BLOOD COUNT 3.41 MIL/MM3 (4.50-5.90); WHITE BLOOD COUNT 15.5 TH/MM3 (4.0-11.0)
[2017-01-23 06:52] LABS: MAGNESIUM 2.3 MG/DL (1.5-2.5)
[2017-01-23] MEDS: CHLORHEXIDINE 0.12% (ORAL KIT) 15 ML CUP MT SCH ×2 (08:00→20:00)
[2017-01-23] MEDS: LACTULOSE SYRUP 20 GM/30 ML CUP PO SCH (08:08)
[2017-01-23] MEDS: DOCUSATE SODIUM 100 MG/10 ML UDC PO SCH ×2 (08:08→20:20)
[2017-01-23] MEDS: MULTIVITAMIN TAB PO SCH (08:08)
[2017-01-23] MEDS: SENNOSIDES SYRUP 8.8 MG/5 ML CUP PO SCH ×2 (08:08→20:20)
[2017-01-23] MEDS: INSULIN DETEMIR 100 UNITS/ML VIAL SQ SCH ×2 (08:08→20:20)
[2017-01-23] MEDS: SODIUM CHLORIDE 0.9% FLUSH 10 ML FLUSH IV FLUSH SCH ×2 (08:08→20:21)
[2017-01-23] MEDS: THIAMINE HCL 100 MG TAB PO SCH (08:08)
[2017-01-23] MEDS: COLLAGENASE OINT 30 GM TUBE TOPICAL SCH (08:09)
[2017-01-23] MEDS: BETAMETHASONE DIPROPIONATE 0.05% CREAM 15 GM TOPICAL SCH (08:09)
[2017-01-23] MEDS: ERYTHROMYCIN 2% TOPICAL SCH ×2 (08:09→20:22)
--- NOTE | 2017-01-23 08:58 | PD.TRANSFR ---
Transfer Summary Admission Date Dec 31, 2016 at 21:40 Admitting Diagnosis Rhabdomyolysis, ARF, Urinary obstruction Diagnoses: (1) Sepsis Diagnosis: Principal (2) Fever Diagnosis: Principal (3) Leukocytosis Diagnosis: Principal (4) Encephalopathy acute Diagnosis: Principal (5) Non healing left heel wound Diagnosis: Principal (6) Rhabdomyolysis Diagnosis: Principal (7) BIMAL (acute kidney injury) Diagnosis: Principal (8) COPD (chronic obstructive pulmonary disease) Diagnosis: Principal (9) Urinary retention Diagnosis: Principal (10) Left leg swelling Diagnosis: Principal (11) Hyperglycemia due to type 2 diabetes mellitus Diagnosis: Principal Significant Findings None Transfer Summary/Subjective This is a 56-year-old male who originally came into the emergency department with his left foot wound. He was admitted for IV antibiotics and cellulitis, possible osteomyelitis of the foot. He was seen by Dr. Ospina with infectious disease who felt that this was likely chronic osteo and not acute. Overnight last night he became acutely delirious, and has a very strong alcohol history, and was thought most likely to be an alcohol withdrawal. He was given Ativan. This morning, he was much more somnolent. This afternoon a rapid response was called because the patient was unresponsive. When I arrived, the patient had a oxygen saturation of 30% with a good plethysmograph waveform. He was emergently transferred to the ICU and intubated. He had a chest x-ray showing bilateral pulmonary protrudes in all lobes, more suggestive of ARDS. The patient was tachycardic, febrile, very septic appearing. He is toxic. Unfortunately, the patient is unresponsive and cannot provide any additional history. 01/03: remains intubated, sedated. persistent bilateral infiltrates. likely ARDS. remains on vasopressors. 01/04: Continued to spike fever 101.3 Tmax. Chest x-ray shows continued bilateral infiltrates/ARDS. Remains on Levophed at 4 mics per minute. Currently on Zosyn and micafungin, vancomycin added for additional gram- positive coverage 01/05: Continues to be hypoxemic currently on FiO2 65%. Chest x-ray shows worsening bilateral pulmonary edema. Fever trending down currently on vancomycin Zosyn and micafungin. Azithromycin added for atypical coverage. I will also increase PEEP to 12, stop IV fluids and give 2 mg IV Bumex 01/06: FiO2 down to 45%. PEEP remains at 12. 2.8 L urine output creatinine slightly improved to 1.8. Received 2 mg Bumex yesterday, nephrology has started scheduled Bumex 1 mg every 12 today. Chest x-ray shows persistent ARDS/ pulmonary edema 01/07: net euvolemic overnight. clinically appears volume overloaded still. failed CPAP for tachypnea yesterday. afebrile. oxygenation stable. 01/08: net euvolemic overnight again. still volume overloaded. Cr slightly elevated. metabolic alkalosis persists. 01/09: FiO2 down to 45%, achieving negative fluid balance. Urine output more than 4 L. Creatinine remained stable 01/10:: Patient remains on 45% oxygen and PEEP of 8, heavily sedated with propofol fentanyl and Precedex. Warren fever of 102. Hemodynamically stable 01/11: Maintaining oxygenation on the PEEP of 8 and FiO2 35%. Otherwise remains sedated with Precedex and fentanyl. Highest temperature was yesterday before noon 102 no fever now. WBC count is slightly improved. Patient is being observed off antibiotics today 01/12: Currently on PSV trial with PEEP of 8. Tmax 100.8. Positive BM 2. 01/13: Afebrile. Still not responsive. MRI brain/EEG ordered. Tolerating tube feeds. Positive BM. Tolerating PSV trials x 12 hours yesterday. 01/14: Tmax 100.8. Currently 99.8. Restarted antibiotics. Panculture. Tolerating PSV trials but not waking up and falling commands. MRI brain negative. EEG negative. 01/15: Tmax 101.6. Currently 100.1. Self extubated overnight. Currently on room air. Arousable but nonverbal. Protecting airway Not verbal. MRI brain showed no acute signs of CVA or hemorrhage/EEG negative. 01/16: Tmax 101.1. Currently 99.3. On 4 L nasal cannula. Mouth is open. Passed swallow evaluation. Nods head appropriately to questions. 01/17: Breathing comfortably. Not following commands. Na 152, BUN creat improving. PT/OT ordered 01/18: Respiratory status remained stable. Tachycardic. WBC slightly increased 10 18.6. CXR improving. Not following commands or verbalizing 01/19: Tmax 99.9. Currently 99.6. One bowel movement. Tolerating tube feeding. 01/20: Tmax 99.6. Currently 99. Attempting to mumble words today. MRI brain pending. Positive BM 2. Tolerating tube feeding 01/21: CURRENT TEMPERATURE 99.6. MRI brain yesterday revealed left frontal/ temporal encephalomalacia. Patient still quite weak upper and lower extremity' s. Doubt ascending neuromuscular disorder but we'll consult neurology today. EEG ordered. Lumbar puncture ordered as well. Tolerating tube feeding. Positive BM. 01/22: Appreciate neurology input. Patient still arousable but not following commands and not speaking. Moderate to severe encephalopathy. On EEG. Tolerating tube feeding. Positive BM. Subjective: 01/23: Arousable and speaking conversations yesterday. Simple yes no questions today. Tolerating tube feeding. Positive BM. Objective Vital Signs Date Time Temp Pulse Resp B/P Pulse Ox O2 Delivery O2 Flow Rate FiO2 01/23/17 08:00 98.3 99 15 144/70 94 01/23/17 07:00 Room Air 01/22/17 19:00 2.00 Intake and Output 01/22/17 01/22/17 01/23/17 08:00 16:00 00:00 Intake Total 697 ml 569 ml 593 ml Output Total 650 ml 525 ml 600 ml Balance 47 ml 44 ml -7 ml Result Diagram: 01/23/17 0621 01/22/17 0307 Imaging Last Impressions Brain MRI 01/20/17 0000 Signed Impressions: Service Date/Time: Friday, January 20, 2017 11:03 - CONCLUSION: 1. No acute abnormality or significant change is seen. 2. There is a encephalomalacia at the inferior left frontal and temporal lobes. These are good locations for prior posttraumatic injuries. 3. Increased signal/fluid in the mastoid air cells bilaterally. Pk Rivera MD Chest X-Ray 01/18/17 0600 Signed Impressions: Service Date/Time: Wednesday, January 18, 2017 03:35 - CONCLUSION: Continued improvement of the left lung infiltrate. Issa Wills Jr., MD Upper Extremity Ultrasound 01/14/17 0000 Signed Impressions: Service Date/Time: Saturday, January 14, 2017 15:01 - CONCLUSION: Thrombus is seen within the right cephalic vein. Lela Stephens MD Lower Extremity Ultrasound 01/14/17 0000 Signed Impressions: Service Date/Time: Saturday, January 14, 2017 14:44 - CONCLUSION: No evidence of deep venous thrombosis within the lower extremities. Christian Antoine MD Chest CT 01/02/17 1645 Signed Impressions: Service Date/Time: Monday, January 02, 2017 22:10 - CONCLUSION: 1. Acute development of bilateral airspace disease as above with some peripheral sparing , especially at the bases. Findings nonspecific. Patient may be developing ARDS/diffuse alveolar damage. Other considerations include infection and severe hypersensitivity type reaction. 2. Endotracheal tube, nasogastric tube and left central line in satisfactory position. Christopher Lagos MD Head CT 01/02/17 0000 Signed Impressions: Service Date/Time: Monday, January 02, 2017 22:08 - CONCLUSION: Normal examination for a patient of this age. No significant change has occurred. Christopher Lagos MD Lower Extremity MRI 01/01/17 Signed Impressions: Service Date/Time: Sunday, January 01, 2017 20:03 - CONCLUSION: Subcutaneous soft tissue edema distal leg. No evidence of osteomyelitis of the tibia or fibula. Issa Christiansen MD Foot X-Ray 01/01/17 Signed Impressions: Service Date/Time: Sunday, January 01, 2017 04:49 - CONCLUSION: No acute abnormality. Prior left toe amputation. Issa Wills Jr., MD Foot MRI 01/01/17 Signed Impressions: Service Date/Time: Sunday, January 01, 2017 20:03 - CONCLUSION: 1. Prominent subcutaneous soft tissue edema about the foot and ankle. 2. Abnormal signal in the distal metatarsal head of the 4th digit, characterized by T1 and T2 prolongation. Differential considerations include healing fracture and osteomyelitis. 3. Probable Aburto's neuroma in the interspace between the distal 2nd and 3rd metatarsal bones. Issa Christiansen MD Abdomen/Pelvis CT [id number]/31/[id number] Signed Impressions: Service Date/Time: Saturday, December 31, 2016 22:46 - CONCLUSION: 1. No acute abnormality to explain the patient's pain. 2. Colonic diverticulosis. No acute inflammation. 3. Suspected small calcified gallstone. The gallbladder is nondilated. 4. 4.2 cm left adrenal gland adenoma. Issa Wills Jr., MD Abdomen X-Ray 12/31/16 0000 Signed Impressions: Service Date/Time: Saturday, December 31, 2016 19:25 - CONCLUSION: Unremarkable study except for stool. Lela Stephens MD Objective Remarks GENERAL: 56-year-old male, lying in bed in no acute distress HEENT: NC/AT. Pupils equal, round, reactive, conjugate about 3 mm bilaterally. Mucous membranes are moist and pink. Oropharynx without erythema or exudates NECK: Obese neck. No thyromegaly or lymphadenopathy. CHEST: Diminished breath sounds bilaterally. Few crackles appreciated throughout all lung aguirre. No wheezing. CARDIOVASCULAR: Tachycardic in 120s. S1, S2 no S4 without murmur ABDOMEN: Obese, soft, nontender, nondistended. No guarding. Hypoactive bowel sounds appreciated MUSCULOSKELETAL: 1+ peripheral edema. Distal pulses 2+. There is a small area on his left heel with a nonhealing ulcer. NEUROLOGICAL: Able to move all 4 extremities spontaneously but very weakly. Eyes open spontaneously, and intermittently follows verbal commands throughout the day but not currently very deep tendon reflexes are equal symmetric bilaterally upper lobe extremity's. A/P Assessment and Plan Neuro/Psych: Metabolic encephalopathy Alcohol withdrawal Agitated delirium Chronic narcotic use Post traumatic stress disorder Precedex drip had been off since 2 PM 01/16 Scheduled Ativan 1 mg by mouth every 8 hours - hold with altered mental status Seroquel 50mg po q8hr - hold with altered mental status Off morphine sulfate 60 mg twice a day and oxycodone 30 mg twice a day/home medication Off Lyrica 150 milligrams by mouth twice a day IV thiamine, multivitamin and folate 01/13 MRI brain was negative for acute intracranial findings/EEG showed moderate to severe encephalopathy Negative CT head 01/02 ammonia 20 on 01/02. 37 01/13. Currently 18 01/19 MRI brain 01/20 revealed left frontal/temporal encephalomalacia. Bilateral mastoid information. EEG 01/21 revealed mild encephalomalacia. No epileptic activity. Neurology consult for further recommendations recommended neuro checks every 4 hours and monitoring. Respiratory: Acute hypoxic respiratory failure-resolved ARDS-improving Aspiration pneumonitis History of COPD Self extubated 01/14, tolerating well Nasal cannula to maintain saturations greater than equal to 92% currently on 2 L Incentive spirometry while awake Bronchodilator therapy every 6 hours and as needed Head of bed at 30 CXR resolving infiltrates Cardiovascular: Sinus tachycardia Septic shock-resolved Hypertension Grade 2 diastolic dysfunction Off lisinopril 5 mill grams by mouth daily/home medication Currently on clonidine 0.3 mg grams po [id number] Echo 01/09 revealed EF 55-60%. No regional wall motion abnormality. Grade 2 diastolic dysfunction. IV metoprolol 2.5 mg every 6 hours when necessary for HR>110 Renal: Acute kidney injury - resolving Likely prerenal/ATN secondary to sepsis. Strict I/Os, [place] Monitor urine output Creat continues to improve Nephrology signed off. FEN/GI: Acute protein calorie malnutritionmild Hyperammonia Trend BMP Protonix 40 mg IV q24 Colace twice a day/Senokot twice a day and lactulose twice a day for bowel regimen. Continue NGT feeding with Glucerna 1.5 goal 50 cc an hour per nutrition recommends. Thickened liquid diet with one can Glucerna 3 times a day with trickle feeds with Glucerna 1.5 at 20 cc an hour Heme/ID: Left foot nonhealing ulceration Septic shock- resolved. History of splenectomy Thrombocytosis - resolving Leukocytosis Normocytic anemia Right Cephalic superficial venous thrombus Continue aspirin 81 mg daily for thrombocytosis likely secondary status post splenectomy. Slowly resolving. Noted hold aspirin with a lumbar puncture coming Continue heparin 5000 every 8 for superficial upper extremity thrombus. Hold secondary to lumbar puncture ordered 01/16 - blood cultures 2 - no growth 01/14 - sputum -ESBL positive Klebsiella 01/13 - blood cultures 2 14: Negative//MRSA 01/10/17 blood cultures 2 negative 01/02 sputum: NGTD 01/02 blood: NGTD 01/02 urine: NGTD. 01/02 heel wound culture enterococcus sensitive to ampicillin Stopped Zosyn/vancomycin 01/16. Ertapenem for ESBL+ Kleb pneumo x 7days started ID: Dr. Ospina following Santyl daily for foot ulcer Endocrine: Diabetes Hyperglycemia of critical illness -- SSI, medium scale, every 6. 41 units sliding-scale insulin past 24 hours Started on Levemir 15 twice a day Holding Janumet one tablet twice a day and glyburide 10 mg by mouth twice a day MSK: Left second toe amputation No acute issues Prophylaxis: GI Prophylaxis Protonix DVT Prophylaxis --SCDs Subcutaneous heparin 5000 units 3 times a day currently on hold Critical Care: The total care time was 35 minutes. Time to perform other separately billable procedures was not included in the critical care time. Patient is stable from a critical care medicine standpoint. We'll assign care to hospitalist in a.m. 01/24/2017. Keep in ICU for now. Cleveland Vera MD Jan 23, 2017 08:58
[2017-01-23 11:39] LABS: BICARBONATE 25.8 MEQ/L (21.0-32.0)
[2017-01-23] MEDS: METOPROLOL TARTRATE 5 MG/5 ML VIAL IV PUSH PRN (15:30)
[2017-01-23 16:01] LABS: ANA SCREEN POS (NEG)
--- NOTE | 2017-01-23 16:28 | HHI.IDPN ---
Subjective Subjective Remarks no fever and MS improving follows commands talks oriented x 1 on RA Antibiotics ertapenem Lines Line sites ok. Past Medical History BM, ETOHism tobaccoism Allergies: Coded Allergies: Toradol (Verified Allergy, Intermediate, Headache, 12/31/16) *MDRO Multi-Drug Resistant Organism (Verified Adverse Reaction, Unknown, ) ESBL K. pneumoniae (sputum) - 01/14/17 Objective . Vital Signs Date Time Temp Pulse Resp B/P Pulse Ox O2 Delivery O2 Flow Rate FiO2 01/23/17 14:00 121 01/23/17 12:00 121 01/23/17 12:00 98.8 121 20 135/84 98 01/23/17 10:00 108 01/23/17 08:00 98.3 99 15 144/70 94 01/23/17 08:00 99 01/23/17 07:00 98 Nasal Cannula 21 01/23/17 07:00 100 Room Air 01/23/17 06:00 105 01/23/17 04:00 98.0 103 20 133/80 97 01/23/17 04:00 103 01/23/17 02:00 107 01/23/17 00:00 98.2 108 20 140/79 94 01/23/17 00:00 108 01/22/17 22:00 110 01/22/17 21:00 95 01/22/17 20:00 98.9 109 17 133/80 99 01/22/17 20:00 109 01/22/17 19:00 98 Nasal Cannula 2.00 01/22/17 18:00 105 01/22/17 01/22/17 01/23/17 15:00 23:00 07:00 Intake Total 569 ml 593 ml 710 ml Output Total 525 ml 600 ml 400 ml Balance 44 ml -7 ml 310 ml IV Total 122 ml 0 ml Tube Feeding 309 ml 471 ml 410 ml Other 260 ml 300 ml Output Urine Total 525 ml 600 ml 400 ml Stool Total 0 ml # Bowel Movements 0 . Laboratory Tests Test 01/22/17 01/23/17 03:07 06:21 White Blood Count 15.9 TH/MM3 15.5 TH/MM3 Red Blood Count 3.10 MIL/MM3 3.41 MIL/MM3 Hemoglobin 10.1 GM/DL 10.9 GM/DL Hematocrit 29.8 % 33.0 % Mean Corpuscular Volume 96.2 FL 96.8 FL Mean Corpuscular Hemoglobin 32.7 PG 32.0 PG Mean Corpuscular Hemoglobin 34.0 % 33.1 % Concent Red Cell Distribution Width 13.7 % 14.0 % Platelet Count 554 TH/MM3 569 TH/MM3 Mean Platelet Volume 11.4 FL 10.9 FL Neutrophils (%) (Auto) 61.3 % 56.1 % Lymphocytes (%) (Auto) 20.5 % 24.7 % Monocytes (%) (Auto) 8.9 % 9.2 % Eosinophils (%) (Auto) 8.0 % 8.8 % Basophils (%) (Auto) 1.3 % 1.2 % Neutrophils # (Auto) 9.8 TH/MM3 8.7 TH/MM3 Lymphocytes # (Auto) 3.3 TH/MM3 3.8 TH/MM3 Monocytes # (Auto) 1.4 TH/MM3 1.4 TH/MM3 Eosinophils # (Auto) 1.3 TH/MM3 1.4 TH/MM3 Basophils # (Auto) 0.2 TH/MM3 0.2 TH/MM3 CBC Comment DIFF FINAL DIFF FINAL Differential Comment Laboratory Tests Test 01/22/17 01/23/17 01/23/17 03:07 06:21 10:44 Sodium Level 143 MEQ/L 142 MEQ/L Potassium Level 4.0 MEQ/L 4.0 MEQ/L Chloride Level 108 MEQ/L 107 MEQ/L Carbon Dioxide Level 25.7 MEQ/L 25.8 MEQ/L Anion Gap 9 MEQ/L 9 MEQ/L Blood Urea Nitrogen 31 MG/DL 30 MG/DL Creatinine 1.21 MG/DL 1.18 MG/DL Estimat Glomerular Filtration 62 ML/MIN 64 ML/MIN Rate Random Glucose 279 MG/DL 272 MG/DL Calcium Level 8.9 MG/DL 9.6 MG/DL Phosphorus Level 3.5 MG/DL 3.1 MG/DL Magnesium Level 2.2 MG/DL 2.3 MG/DL Lactic Acid Level 1.4 mmol/L Ammonia 18 MCMOL/L Imaging Last Impressions Brain MRI 01/20/17 0000 Signed Impressions: Service Date/Time: Friday, January 20, 2017 11:03 - CONCLUSION: 1. No acute abnormality or significant change is seen. 2. There is a encephalomalacia at the inferior left frontal and temporal lobes. These are good locations for prior posttraumatic injuries. 3. Increased signal/fluid in the mastoid air cells bilaterally. Pk Rivera MD Chest X-Ray 01/18/17 0600 Signed Impressions: Service Date/Time: Wednesday, January 18, 2017 03:35 - CONCLUSION: Continued improvement of the left lung infiltrate. Issa Wills Jr., MD Upper Extremity Ultrasound 01/14/17 0000 Signed Impressions: Service Date/Time: Saturday, January 14, 2017 15:01 - CONCLUSION: Thrombus is seen within the right cephalic vein. Lela Stephens MD Lower Extremity Ultrasound 01/14/17 0000 Signed Impressions: Service Date/Time: Saturday, January 14, 2017 14:44 - CONCLUSION: No evidence of deep venous thrombosis within the lower extremities. Christian Antoine MD Chest CT 01/02/17 1645 Signed Impressions: Service Date/Time: Monday, January 02, 2017 22:10 - CONCLUSION: 1. Acute development of bilateral airspace disease as above with some peripheral sparing , especially at the bases. Findings nonspecific. Patient may be developing ARDS/diffuse alveolar damage. Other considerations include infection and severe hypersensitivity type reaction. 2. Endotracheal tube, nasogastric tube and left central line in satisfactory position. Christopher Lagos MD Head CT 01/02/17 Signed Impressions: Service Date/Time: Monday, January 02, 2017 22:08 - CONCLUSION: Normal examination for a patient of this age. No significant change has occurred. Christopher Lagos MD Lower Extremity MRI 01/01/17 Signed Impressions: Service Date/Time: Sunday, January 01, 2017 20:03 - CONCLUSION: Subcutaneous soft tissue edema distal leg. No evidence of osteomyelitis of the tibia or fibula. Issa Christiansen MD Foot X-Ray 01/01/17 Signed Impressions: Service Date/Time: Sunday, January 01, 2017 04:49 - CONCLUSION: No acute abnormality. Prior left toe amputation. Issa Wills Jr., MD Foot MRI 01/01/17 Signed Impressions: Service Date/Time: Sunday, January 01, 2017 20:03 - CONCLUSION: 1. Prominent subcutaneous soft tissue edema about the foot and ankle. 2. Abnormal signal in the distal metatarsal head of the 4th digit, characterized by T1 and T2 prolongation. Differential considerations include healing fracture and osteomyelitis. 3. Probable Aburto's neuroma in the interspace between the distal 2nd and 3rd metatarsal bones. Issa Christiansen MD Abdomen/Pelvis CT 12/31/16 1939 Signed Impressions: Service Date/Time: Saturday, December 31, 2016 22:46 - CONCLUSION: 1. No acute abnormality to explain the patient's pain. 2. Colonic diverticulosis. No acute inflammation. 3. Suspected small calcified gallstone. The gallbladder is nondilated. 4. 4.2 cm left adrenal gland adenoma. Issa Wills Jr., MD Abdomen X-Ray 12/31/16 0000 Signed Impressions: Service Date/Time: Saturday, December 31, 2016 19:25 - CONCLUSION: Unremarkable study except for stool. Lela Stephens MD Physical Exam CONSTITUTIONAL/GENERAL: This is an obese patient, in no apparent distress. TUBES/LINES/DRAINS: SKIN: No jaundice, rashes, or lesions. Scaly facila rash mostly cw seboreic dermatitis EYES: Pupils equal and round and reactive. Extraocular motions intact. No scleral icterus. No injection or drainage. Fundi not examined. ENT: Oral mucosae moist, dentition poor NECK: Trachea midline. Supple, nontender. CARDIOVASCULAR: Regular rate and rhythm without murmurs, gallops, or rubs. No JVD. Peripheral pulses symmetric. RESPIRATORY/CHEST: Symmetric, unlabored respirations. Breath sounds equal bilaterally. GASTROINTESTINAL: Abdomen soft, non-tender, nondistended. Bowel sounds present. GENITOURINARY: Without palpable bladder distension. Saunders catheter in place with clear yellow urine MUSCULOSKELETAL: Extremities without clubbing, cyanosis, or edema. NEUROLOGICAL: eyes opened, makes eye contact , interemittely coherent verbal response moves spontaneously all extremeties to commands PSYCHIATRIC: calm, not cooperative Assessment & Plan Remarks Septic shock likely secondary to aspiration pneumonia, resolved. Fever: likely 2/2 PNA Aspiration PNA - growing ESBL + Kleb pneumo Obstructive uropathy and ARF on presentation - saunders placed on admission Low grade coag neg staph bacteremia - doubt clin significance CULTURE GROWING STAPH SP COAGULASE NEGATIVE X 2 Acute renal failurelikely post obstructive Acute urinary retention on admission Left heel chronic diabetic ulcer, no e/o osteo of L heel sp b/s debridement - growing enterococcus along with skin ricky from surface clx ; doubt clin significance - this is likely not the source of pt possible sepsis Persistent low grade fever resolved persistent leukocytosis: improving right cephalic vein trombosis - also can contribute to fever Recs complete Ertapenem for ESBL+ Kleb pneumo x 7days Follow WBC Follow clinically. Mi Ospina MD Jan 23, 2017 16:28
[2017-01-23] MEDS: ERTAPENEM INJ 1,000 MG in SODIUM CHLORIDE 0.9% INJ 100 ML IV SCH (17:02)
[2017-01-23] MEDS: PANTOPRAZOLE SODIUM 40 MG VIAL IV PUSH SCH (20:20)
[2017-01-24] VITALS (14 sets, daily range): BP systolic 127–136; BP diastolic 73–91; PULSE 82–109; RESP 11–14; TEMP 98–98.6; O2SAT 94–100
[2017-01-24] MEDS: RESP: ALBUTEROL 2.5 MG/IPRATROPIUM 0.5 MG NEB (SCH) NEB ×2 (03:45→09:42)
[2017-01-24 04:21] LABS: BASOPHIL # 0.2 TH/MM3 (0-0.2); BASOPHIL % 1.4 % (0.0-2.0); EOSINOPHIL # 1.1 TH/MM3 (0-0.4); EOSINOPHIL % 8.7 % (0.0-4.0); HEMO FLAGS DIFF FINAL; LYMPH % 25.7 % (9.0-44.0); LYMPHOCYTE # 3.3 TH/MM3 (1.0-4.8); MEAN CELL VOLUME 96.4 FL (80.0-100.0); MEAN CORPUSCULAR HEMOGLOBIN 33.5 PG (27.0-34.0); MEAN CORPUSCULAR HGB CONC 34.7 % (32.0-36.0); MONO % 9.5 % (0.0-8.0); NEUT % 54.7 % (16.0-70.0); PLATELET COUNT 559 TH/MM3 (150-450); RED BLOOD COUNT 3.32 MIL/MM3 (4.50-5.90); RED CELL DISTRIBUTION WIDTH 14.1 % (11.6-17.2); WHITE BLOOD COUNT 12.8 TH/MM3 (4.0-11.0)
[2017-01-24 04:46] LABS: BICARBONATE 26.3 MEQ/L (21.0-32.0); MAGNESIUM 2.2 MG/DL (1.5-2.5); POTASSIUM 3.8 MEQ/L (3.5-5.1)
[2017-01-24] MEDS: cloNIDine HCL 0.3 MG TAB PO SCH ×3 (05:06→21:42)
[2017-01-24] MEDS: ARTIFICIAL TEARS OPTH SOLN 15 ML BTL EACH EYE SCH ×3 (05:06→21:42)
[2017-01-24] MEDS: INSULIN NovoLIN REGULAR SUPPLEMENTAL SCALE SQ SCH ×6 (05:06→23:34)
[2017-01-24] MEDS: FREE WATER G-TUBE SCH ×3 (05:07→23:35)
[2017-01-24] MEDS: LACTULOSE SYRUP 20 GM/30 ML CUP PO SCH (09:00)
[2017-01-24] MEDS: DOCUSATE SODIUM 100 MG/10 ML UDC PO SCH ×2 (09:00→19:55)
[2017-01-24] MEDS: BETAMETHASONE DIPROPIONATE 0.05% CREAM 15 GM TOPICAL SCH (09:00)
[2017-01-24] MEDS: COLLAGENASE OINT 30 GM TUBE TOPICAL SCH (09:00)
[2017-01-24] MEDS: SENNOSIDES SYRUP 8.8 MG/5 ML CUP PO SCH ×2 (09:00→19:55)
[2017-01-24] MEDS: CHLORHEXIDINE 0.12% (ORAL KIT) 15 ML CUP MT SCH ×2 (09:17→19:57)
[2017-01-24] MEDS: SODIUM CHLORIDE 0.9% FLUSH 10 ML FLUSH IV FLUSH SCH ×2 (09:17→19:56)
[2017-01-24] MEDS: INSULIN DETEMIR 100 UNITS/ML VIAL SQ SCH ×3 (09:18→21:42)
[2017-01-24] MEDS: MULTIVITAMIN TAB PO SCH (09:18)
[2017-01-24] MEDS: THIAMINE HCL 100 MG TAB PO SCH (09:18)
[2017-01-24] MEDS: ERYTHROMYCIN 2% TOPICAL SCH ×2 (09:19→19:57)
--- NOTE | 2017-01-24 18:33 | HHI.PR ---
Subjective Remarks Patient denies sob as per rN patient has been awake but sometimes answers some questions and sometimes does not RN states has been refusing treatment. Blood sugars have been elevated in the 300's Objective Vitals Vital Signs Date Time Temp Pulse Resp B/P Pulse Ox O2 Delivery O2 Flow Rate FiO2 01/24/17 14:00 96 01/24/17 12:00 98.0 99 12 127/79 94 01/24/17 12:00 99 01/24/17 10:00 100 01/24/17 09:40 96 21 01/24/17 08:00 82 01/24/17 08:00 98.6 92 12 128/78 94 01/24/17 07:00 95 Room Air 01/24/17 06:00 94 01/24/17 04:00 98.3 109 11 133/81 100 01/24/17 04:00 109 01/24/17 02:00 105 01/24/17 00:00 98.5 109 14 136/91 94 01/24/17 00:00 109 01/23/17 22:00 107 01/23/17 20:00 98.5 100 16 134/78 98 01/23/17 20:00 100 01/23/17 19:02 98 21 01/23/17 19:00 98 Room Air I/O 01/23/17 01/23/17 01/23/17 01/24/17 01/24/17 01/24/17 07:00 15:00 23:00 07:00 15:00 23:00 Intake Total 710 ml 811 ml 757 ml 495 ml 560 ml Output Total 400 ml 625 ml 550 ml 350 ml 750 ml Balance 310 ml 186 ml 207 ml 145 ml -190 ml Intake Oral 0 ml 0 ml 0 ml IV Total 0 ml 131 ml 52 ml 50 ml Tube Feeding 410 ml 491 ml 426 ml 243 ml 310 ml Tube Irrigant 120 ml Other 300 ml 200 ml 200 ml 200 ml 200 ml Output Urine Total 400 ml 625 ml 550 ml 350 ml 750 ml # Bowel Movements 0 0 1 0 Result Diagram: 01/24/1730701/24/17307 Objective Remarks GENERAL: Patient is more awake, in NAD SKIN: Warm and dry. Mottled appearance. Scaly grease rash on face HEAD: Atraumatic. Normocephalic. EYES: Pupils equal and round. No scleral icterus. No injection or drainage. ENT: No nasal bleeding or discharge. Mucous membranes pink and moist. NECK: Trachea midline. No JVD. CARDIOVASCULAR: Tachycardic, no MRG appreciated. RESPIRATORY: No accessory muscle use. Clear to auscultation. Breath sounds equal bilaterally. GASTROINTESTINAL: Abdomen soft, non-tender, nondistended. Hepatic and splenic margins not palpable. MUSCULOSKELETAL: Extremities without clubbing, cyanosis, or edema. No obvious deformities. NEUROLOGICAL: PAtient is more awake, follows certain commands. AAOx1. PSYCHIATRIC: Patient answers some questions, others chooses no to Medications and IVs Current Medications Medications (Trade) Dose Ordered Sig/Rip Route Start Time Stop Time Status Last Admin (NS Flush) 2 ml UNSCH PRN IV FLUSH 12/31/16 21:45 01/09/17 09:11 (NS Flush) 2 ml BID IV FLUSH 01/01/17 09:00 01/24/17 19:56 (Narcan Inj) 0.4 mg UNSCH PRN IV 12/31/16 21:45 (Lyrica) 200 mg DAILY PO 01/01/17 09:00 Hold 01/02/17 08:25 (Heparin Inj) 5,000 units Q8HR SQ 01/01/17 14:00 Hold 01/21/17 04:31 (Santyl Oint) 1 applic DAILY TOPICAL 01/01/17 19:15 01/24/17 09:00 (Peridex 0.12% Liq) 15 ml BID@08,20 MT 01/02/17 20:00 01/24/17 19:57 (Vitamin B1) 100 mg DAILY PO 01/06/17 09:00 01/24/17 09:18 (Theragran) 1 tab DAILY PO 01/03/17 09:00 01/24/17 09:18 (Protonix Inj) 40 mg Q24H IV PUSH 01/02/17 20:00 01/24/17 19:56 Miscellaneous Information Patient in critical care unit? Ass... Q361D .XX 01/02/17 21:45 (Colace Liq) 100 mg Q12HR PO 01/04/17 11:45 01/24/17 19:55 (SEROquel) 50 mg Q8HR PO 01/07/17 08:20 Hold 01/14/17 05:36 (Ativan) 1 mg Q8HR PO 01/10/17 14:00 Hold 01/14/17 05:36 (Aspirin Chew) 81 mg DAILY PO 01/12/17 09:00 Hold 01/20/17 08:27 (Tears Naturale Opth Soln) 1 drop Q8HR EACH EYE 01/12/17 17:00 01/24/17 15:24 (Tylenol) 650 mg Q4H PRN PO 01/13/17 20:15 01/17/17 21:49 (Lactulose Liq) 30 ml DAILY PO 01/14/17 09:00 01/23/17 08:08 (Senna Liq) 8.8 mg BID PO 01/14/17 09:00 01/24/17 19:55 (D50w (Vial) Inj) 25 ml UNSCH PRN IV PUSH 01/15/17 09:45 (Glucagon Inj) 1 mg UNSCH PRN OTHER 01/15/17 09:45 (NovoLIN R SUPPLEMENTAL SCALE) 1 Q4HR SQ 01/15/17 12:00 01/24/17 19:56 (Free Water) VOLUME: 200 ML Q6HR G-TUBE 01/16/17 18:00 01/24/17 12:00 (Apresoline Inj) 20 mg Q6H PRN IV 01/18/17 05:15 01/20/17 10:30 (Lopressor Inj) 5 mg Q6H PRN IV PUSH 01/18/17 23:15 01/23/17 15:30 (Catapres) 0.3 mg Q8HR PO 01/19/17 14:00 01/24/17 15:25 (Levemir Inj) 15 units Q12HR SQ 01/22/17 11:00 01/24/17 19:56 (Eryderm 2% Top Soln) 1 applic Q12HR TOPICAL 01/22/17 14:00 01/24/17 19:57 (Diprosone 0.05% Cream) 1 applic DAILY TOPICAL 01/23/17 09:00 Urinary Catheter: Yes Assessment to: Continue [place] insert reason: Measure Accurate Output Vascular Central Line Catheter: No A/P Problem List: (1) Sepsis ICD Code: A41.9 Status: Acute (2) Fever ICD Code: R50.9 Status: Acute (3) Leukocytosis ICD Code: D72.829 Status: Acute (4) Encephalopathy acute ICD Code: G93.40 Status: Acute (5) Non healing left heel wound ICD Code: S91.302A Status: Acute (6) Rhabdomyolysis ICD Code: M62.82 Status: Acute (7) BIMAL (acute kidney injury) ICD Code: N17.9 Status: Acute (8) COPD (chronic obstructive pulmonary disease) ICD Code: J44.9 Status: Acute (9) Urinary retention ICD Code: R33.9 Status: Acute (10) Left leg swelling ICD Code: M79.89 Status: Acute (11) Hyperglycemia due to type 2 diabetes mellitus ICD Code: E11.65 Status: Acute Assessment and Plan Neuro/Psych: Metabolic encephalopathy Alcohol withdrawal Agitated delirium Chronic narcotic use Post traumatic stress disorder Precedex drip had been off since 2 PM 01/16 Scheduled Ativan 1 mg by mouth every 8 hours - hold with altered mental status Seroquel 50mg po q8hr - hold with altered mental status Off morphine sulfate 60 mg twice a day and oxycodone 30 mg twice a day/home medication Off Lyrica 150 milligrams by mouth twice a day IV thiamine, multivitamin and folate 01/13 MRI brain was negative for acute intracranial findings/EEG showed moderate to severe encephalopathy Negative CT head 01/02 ammonia 20 on 01/02. 37 01/13. Currently 18 01/19 MRI brain 01/20 revealed left frontal/temporal encephalomalacia. Bilateral mastoid information. EEG 01/21 revealed mild encephalomalacia. No epileptic activity. Neurology consult for further recommendations recommended neuro checks every 4 hours and monitoring. Respiratory: Acute hypoxic respiratory failure-resolved ARDS-improving Aspiration pneumonitis History of COPD Self extubated 01/14, tolerating well Nasal cannula to maintain saturations greater than equal to 92% currently on 2 L Incentive spirometry while awake Bronchodilator therapy every 6 hours and as needed Head of bed at 30 CXR resolving infiltrates Cardiovascular: Sinus tachycardia Septic shock-resolved Hypertension Grade 2 diastolic dysfunction Off lisinopril 5 mill grams by mouth daily/home medication Currently on clonidine 0.3 mg grams po [id number] Echo 01/09 revealed EF 55-60%. No regional wall motion abnormality. Grade 2 diastolic dysfunction. IV metoprolol 2.5 mg every 6 hours when necessary for HR>110 Renal: Acute kidney injury - resolving Likely prerenal/ATN secondary to sepsis. Strict I/Os, [place] Monitor urine output Creat continues to improve Nephrology signed off. FEN/GI: Acute protein calorie malnutritionmild Hyperammonia Trend BMP Protonix 40 mg IV q24 Colace twice a day/Senokot twice a day and lactulose twice a day for bowel regimen. Continue NGT feeding with Glucerna 1.5 goal 50 cc an hour per nutrition recommends. Thickened liquid diet with one can Glucerna 3 times a day with trickle feeds with Glucerna 1.5 at 20 cc an hour Heme/ID: Left foot nonhealing ulceration Septic shock- resolved. History of splenectomy Thrombocytosis - resolving Leukocytosis Normocytic anemia Right Cephalic superficial venous thrombus Continue aspirin 81 mg daily for thrombocytosis likely secondary status post splenectomy. Slowly resolving. Noted hold aspirin with a lumbar puncture coming Continue heparin 5000 every 8 for superficial upper extremity thrombus. Hold secondary to lumbar puncture ordered 01/16 - blood cultures 2 - no growth 01/14 - sputum -ESBL positive Klebsiella 01/13 - blood cultures 2 14: Negative//MRSA 01/10/17 blood cultures 2 negative 01/02 sputum: NGTD 01/02 blood: NGTD 01/02 urine: NGTD. 01/02 heel wound culture enterococcus sensitive to ampicillin Stopped Zosyn/vancomycin 01/16. Ertapenem for ESBL+ Kleb pneumo x 7days started ID: Dr. Ospina following Santyl daily for foot ulcer Endocrine: Diabetes Hyperglycemia of critical illness -- SSI, medium scale, every 6. 41 units sliding-scale insulin past 24 hours Started on Levemir 15 twice a day Holding Janumet one tablet twice a day and glyburide 10 mg by mouth twice a day MSK: Left second toe amputation No acute issues Prophylaxis: GI Prophylaxis Protonix DVT Prophylaxis --SCDs Subcutaneous heparin 5000 units 3 times a day currently on hold GI prophylaxis: Add PPI. DVT prophylaxis: SCDs, continue heparin subcutaneous. Discharge Planning Continue to monitor in the ICU. Problem Qualifiers (1) Sepsis: Qualified Code: A41.9 - Sepsis, due to unspecified organism (2) Fever: Qualified Code: R50.9 - Fever, unspecified fever cause (3) Leukocytosis: Qualified Code: D72.829 - Leukocytosis, unspecified type (4) Rhabdomyolysis: Qualified Code: M62.82 - Non-traumatic rhabdomyolysis (5) COPD (chronic obstructive pulmonary disease): (6) Hyperglycemia due to type 2 diabetes mellitus: Qualified Code: E11.65 - Type 2 diabetes mellitus with hyperglycemia, without long-term current use of insulin Nathaniel Yo MD Jan 24, 2017 18:33
[2017-01-24] MEDS: PANTOPRAZOLE SODIUM 40 MG VIAL IV PUSH SCH (19:56)
[2017-01-25] VITALS (12 sets, daily range): BP systolic 113–138; BP diastolic 71–92; PULSE 83–101; RESP 15–20; TEMP 97.5–98.5; O2SAT 95–97
[2017-01-25] MEDS: INSULIN NovoLIN REGULAR SUPPLEMENTAL SCALE SQ SCH ×6 (04:00→23:59)
[2017-01-25] MEDS: ARTIFICIAL TEARS OPTH SOLN 15 ML BTL EACH EYE SCH ×3 (05:37→22:00)
[2017-01-25] MEDS: FREE WATER G-TUBE SCH ×4 (05:37→23:59)
[2017-01-25] MEDS: cloNIDine HCL 0.3 MG TAB PO SCH ×3 (05:38→22:09)
[2017-01-25] MEDS: CHLORHEXIDINE 0.12% (ORAL KIT) 15 ML CUP MT SCH ×2 (08:00→20:00)
[2017-01-25] MEDS: COLLAGENASE OINT 30 GM TUBE TOPICAL SCH (09:00)
[2017-01-25] MEDS: BETAMETHASONE DIPROPIONATE 0.05% CREAM 15 GM TOPICAL SCH (09:00)
[2017-01-25] MEDS: ERYTHROMYCIN 2% TOPICAL SCH ×2 (09:00→22:09)
[2017-01-25] MEDS: SENNOSIDES SYRUP 8.8 MG/5 ML CUP PO SCH ×2 (09:25→22:08)
[2017-01-25] MEDS: SODIUM CHLORIDE 0.9% FLUSH 10 ML FLUSH IV FLUSH SCH ×2 (09:25→22:08)
[2017-01-25] MEDS: INSULIN DETEMIR 100 UNITS/ML VIAL SQ SCH ×2 (09:25→22:08)
[2017-01-25] MEDS: DOCUSATE SODIUM 100 MG/10 ML UDC PO SCH ×2 (09:25→22:07)
[2017-01-25] MEDS: MULTIVITAMIN TAB PO SCH (09:25)
[2017-01-25] MEDS: LACTULOSE SYRUP 20 GM/30 ML CUP PO SCH (09:25)
[2017-01-25] MEDS: THIAMINE HCL 100 MG TAB PO SCH (09:25)
--- NOTE | 2017-01-25 12:06 | HHI.PR ---
Subjective Remarks As per RN, the patient has been refusing this swallowing eval. Patient seems to be more awake and alert today. Patient seems to be responding more coherently today. Denies chest pain or shortness of breath. Objective Vitals Vital Signs Date Time Temp Pulse Resp B/P Pulse Ox O2 Delivery O2 Flow Rate FiO2 01/25/17 12:00 98.3 95 16 138/92 95 01/25/17 10:00 84 01/25/17 08:00 98.0 83 18 138/81 97 01/25/17 08:00 84 01/25/17 07:45 96 21 01/25/17 07:00 Room Air 01/25/17 06:00 85 01/25/17 04:00 98.2 101 18 133/81 97 01/25/17 04:00 101 01/25/17 00:00 98.0 90 15 129/80 95 01/25/17 00:00 90 01/24/17 22:00 92 01/24/17 20:00 98 01/24/17 20:00 98.2 98 12 131/73 98 01/24/17 19:02 94 21 01/24/17 19:00 Room Air 01/24/17 18:00 96 01/24/17 16:00 92 01/24/17 14:00 96 I/O 01/24/17 01/24/17 01/24/17 01/25/17 01/25/17 01/25/17 07:00 15:00 23:00 07:00 15:00 23:00 Intake Total 495 ml 560 ml 369 ml 354 ml Output Total 350 ml 750 ml 425 ml 400 ml Balance 145 ml -190 ml -56 ml -46 ml Intake Oral 0 ml 0 ml 0 ml 0 ml IV Total 52 ml 50 ml 22 ml 0 ml Tube Feeding 243 ml 310 ml 147 ml 354 ml Other 200 ml 200 ml 200 ml Output Urine Total 350 ml 750 ml 425 ml 400 ml # Bowel Movements 1 0 0 0 Result Diagram: 01/24/1730701/24/17307 Imaging Last Impressions Brain MRI 01/20/17 0000 Signed Impressions: Service Date/Time: Friday, January 20, 2017 11:03 - CONCLUSION: 1. No acute abnormality or significant change is seen. 2. There is a encephalomalacia at the inferior left frontal and temporal lobes. These are good locations for prior posttraumatic injuries. 3. Increased signal/fluid in the mastoid air cells bilaterally. Pk Rivera MD Chest X-Ray 01/18/17 0600 Signed Impressions: Service Date/Time: Wednesday, January 18, 2017 03:35 - CONCLUSION: Continued improvement of the left lung infiltrate. Issa Wills Jr., MD Upper Extremity Ultrasound 01/14/17 Signed Impressions: Service Date/Time: Saturday, January 14, 2017 15:01 - CONCLUSION: Thrombus is seen within the right cephalic vein. Lela Stephens MD Lower Extremity Ultrasound 01/14/17 Signed Impressions: Service Date/Time: Saturday, January 14, 2017 14:44 - CONCLUSION: No evidence of deep venous thrombosis within the lower extremities. Christian Antoine MD Chest CT 01/02/17 1645 Signed Impressions: Service Date/Time: Monday, January 02, 2017 22:10 - CONCLUSION: 1. Acute development of bilateral airspace disease as above with some peripheral sparing , especially at the bases. Findings nonspecific. Patient may be developing ARDS/diffuse alveolar damage. Other considerations include infection and severe hypersensitivity type reaction. 2. Endotracheal tube, nasogastric tube and left central line in satisfactory position. Christopher Lagos MD Head CT 01/02/17 Signed Impressions: Service Date/Time: Monday, January 02, 2017 22:08 - CONCLUSION: Normal examination for a patient of this age. No significant change has occurred. Christopher Lagos MD Lower Extremity MRI 01/01/17 Signed Impressions: Service Date/Time: Sunday, January 01, 2017 20:03 - CONCLUSION: Subcutaneous soft tissue edema distal leg. No evidence of osteomyelitis of the tibia or fibula. Issa Christiansen MD Foot X-Ray 01/01/17 Signed Impressions: Service Date/Time: Sunday, January 01, 2017 04:49 - CONCLUSION: No acute abnormality. Prior left toe amputation. Issa Wills Jr., MD Foot MRI 01/01/17 Signed Impressions: Service Date/Time: Sunday, January 01, 2017 20:03 - CONCLUSION: 1. Prominent subcutaneous soft tissue edema about the foot and ankle. 2. Abnormal signal in the distal metatarsal head of the 4th digit, characterized by T1 and T2 prolongation. Differential considerations include healing fracture and osteomyelitis. 3. Probable Aburto's neuroma in the interspace between the distal 2nd and 3rd metatarsal bones. Issa Christiansen MD Abdomen/Pelvis CT 12/31/16 1939 Signed Impressions: Service Date/Time: Saturday, December 31, 2016 22:46 - CONCLUSION: 1. No acute abnormality to explain the patient's pain. 2. Colonic diverticulosis. No acute inflammation. 3. Suspected small calcified gallstone. The gallbladder is nondilated. 4. 4.2 cm left adrenal gland adenoma. Issa Wills Jr., MD Abdomen X-Ray 12/31/16 0000 Signed Impressions: Service Date/Time: Saturday, December 31, 2016 19:25 - CONCLUSION: Unremarkable study except for stool. Lela Stephens MD Objective Remarks GENERAL: Patient is more awake, in NAD SKIN: Warm and dry. Scaly greasy rash on face HEAD: Atraumatic. Normocephalic. EYES: Pupils equal and round. No scleral icterus. No injection or drainage. ENT: No nasal bleeding or discharge. Mucous membranes pink and moist. NECK: Trachea midline. No JVD. CARDIOVASCULAR: Tachycardic, no MRG appreciated. RESPIRATORY: No accessory muscle use. Clear to auscultation. Breath sounds equal bilaterally. GASTROINTESTINAL: Abdomen soft, non-tender, nondistended. Hepatic and splenic margins not palpable. MUSCULOSKELETAL: Extremities without clubbing, cyanosis, or edema. No obvious deformities. NEUROLOGICAL: Patient is more awake, follows certain commands. AAOx1. PSYCHIATRIC: Patient answers some questions, others chooses no to Procedures none Medications and IVs Current Medications Medications (Trade) Dose Ordered Sig/Rip Route Start Time Stop Time Status Last Admin (NS Flush) 2 ml UNSCH PRN IV FLUSH 12/31/16 21:45 01/09/17 09:11 (NS Flush) 2 ml BID IV FLUSH 01/01/17 09:00 01/25/17 09:25 (Narcan Inj) 0.4 mg UNSCH PRN IV 12/31/16 21:45 (Lyrica) 200 mg DAILY PO 01/01/17 09:00 Hold 01/02/17 08:25 (Heparin Inj) 5,000 units Q8HR SQ 01/01/17 14:00 Hold 01/21/17 04:31 (Santyl Oint) 1 applic DAILY TOPICAL 01/01/17 19:15 01/25/17 09:00 (Peridex 0.12% Liq) 15 ml BID@08,20 MT 01/02/17 20:00 01/25/17 08:00 (Vitamin B1) 100 mg DAILY PO 01/06/17 09:00 01/25/17 09:25 (Theragran) 1 tab DAILY PO 01/03/17 09:00 01/25/17 09:25 (Protonix Inj) 40 mg Q24H IV PUSH 01/02/17 20:00 01/24/17 19:56 Miscellaneous Information Patient in critical care unit? Ass... Q361D .XX 01/02/17 21:45 (Colace Liq) 100 mg Q12HR PO 01/04/17 11:45 01/25/17 09:25 (SEROquel) 50 mg Q8HR PO 01/07/17 08:20 Hold 01/14/17 05:36 (Ativan) 1 mg Q8HR PO 01/10/17 14:00 Hold 01/14/17 05:36 (Aspirin Chew) 81 mg DAILY PO 01/12/17 09:00 Hold 01/20/17 08:27 (Tears Naturale Opth Soln) 1 drop Q8HR EACH EYE 01/12/17 17:00 01/25/17 05:37 (Tylenol) 650 mg Q4H PRN PO 01/13/17 20:15 01/17/17 21:49 (Lactulose Liq) 30 ml DAILY PO 01/14/17 09:00 01/25/17 09:25 (Senna Liq) 8.8 mg BID PO 01/14/17 09:00 01/25/17 09:25 (D50w (Vial) Inj) 25 ml UNSCH PRN IV PUSH 01/15/17 09:45 (Glucagon Inj) 1 mg UNSCH PRN OTHER 01/15/17 09:45 (NovoLIN R SUPPLEMENTAL SCALE) 1 Q4HR SQ 01/15/17 12:00 01/25/17 12:04 (Free Water) VOLUME: 200 ML Q6HR G-TUBE 01/16/17 18:00 01/25/17 08:00 (Apresoline Inj) 20 mg Q6H PRN IV 01/18/17 05:15 01/20/17 10:30 (Lopressor Inj) 5 mg Q6H PRN IV PUSH 01/18/17 23:15 01/23/17 15:30 (Catapres) 0.3 mg Q8HR PO 01/19/17 14:00 01/25/17 05:38 (Eryderm 2% Top Soln) 1 applic Q12HR TOPICAL 01/22/17 14:00 01/25/17 09:00 (Diprosone 0.05% Cream) 1 applic DAILY TOPICAL 01/23/17 09:00 01/25/17 09:00 (Levemir Inj) 30 units Q12HR SQ 01/24/17 21:00 01/25/17 09:25 Urinary Catheter: Yes Assessment to: Continue [place] insert reason: Measure Accurate Output Vascular Central Line Catheter: No A/P Problem List: (1) Sepsis ICD Code: A41.9 Status: Acute (2) Leukocytosis ICD Code: D72.829 Status: Acute (3) Encephalopathy acute ICD Code: G93.40 Status: Acute (4) Non healing left heel wound ICD Code: S91.302A Status: Acute (5) Rhabdomyolysis ICD Code: M62.82 Status: Acute (6) BIMAL (acute kidney injury) ICD Code: N17.9 Status: Acute (7) COPD (chronic obstructive pulmonary disease) ICD Code: J44.9 Status: Acute (8) Urinary retention ICD Code: R33.9 Status: Resolved (9) Left leg swelling ICD Code: M79.89 Status: Resolved (10) Hyperglycemia due to type 2 diabetes mellitus ICD Code: E11.65 Status: Acute (11) Alcohol withdrawal ICD Code: F10.239 Status: Resolved (12) Chronic narcotic dependence ICD Code: F11.20 Status: Chronic (13) Delirium ICD Code: R41.0 Status: Resolved (14) Thrombosis of right cephalic vein ICD Code: I80.8 Status: Acute (15) Thrombocytosis ICD Code: D47.3 Status: Acute (16) Normocytic anemia ICD Code: D64.9 Status: Acute (17) Dysphagia ICD Code: R13.10 Status: Acute Assessment and Plan Neuro/Psych: Metabolic encephalopathy Alcohol withdrawal Agitated delirium Chronic narcotic use Post traumatic stress disorder dysphagia Precedex drip had been off since 2 PM 01/16 Scheduled Ativan 1 mg by mouth every 8 hours - hold with altered mental status Seroquel 50mg po q8hr - hold with altered mental status Off morphine sulfate 60 mg twice a day and oxycodone 30 mg twice a day/home medication Off Lyrica 150 milligrams by mouth twice a day IV thiamine, multivitamin and folate 01/13 MRI brain was negative for acute intracranial findings/EEG showed moderate to severe encephalopathy Negative CT head 01/02 ammonia 20 on 01/02. 37 01/13. Currently 18 01/19 MRI brain 01/20 revealed left frontal/temporal encephalomalacia. Bilateral mastoid information. EEG 01/21 revealed mild encephalomalacia. No epileptic activity. Neurology consult for further recommendations recommended neuro checks every 4 hours and monitoring. 01/25 Patient failed dysphagia evaluation currently npo on tube feedings. Patient has been refusing repeat swallow evaluations. continue NG tube and tube feedings for now. Respiratory: Acute hypoxic respiratory failure-resolved ARDS-improving Aspiration pneumonitis History of COPD Self extubated 01/14, tolerating well Nasal cannula to maintain saturations greater than equal to 92% currently on 2 L Incentive spirometry while awake Bronchodilator therapy every 6 hours and as needed Head of bed at 30 CXR resolving infiltrates Cardiovascular: Sinus tachycardia Septic shock-resolved Hypertension Grade 2 diastolic dysfunction Off lisinopril 5 mill grams by mouth daily/home medication Currently on clonidine 0.3 mg grams po [id number] Echo 01/09 revealed EF 55-60%. No regional wall motion abnormality. Grade 2 diastolic dysfunction. IV metoprolol 2.5 mg every 6 hours when necessary for HR>110 Renal: Acute kidney injury - resolving Likely prerenal/ATN secondary to sepsis. Strict I/Os, [place] Monitor urine output Creat continues to improve Nephrology signed off. FEN/GI: Acute protein calorie malnutritionmild Hyperammonia Trend BMP Protonix 40 mg IV q24 Colace twice a day/Senokot twice a day and lactulose twice a day for bowel regimen. Continue NGT feeding with Glucerna 1.5 goal 50 cc an hour per nutrition recommends. Thickened liquid diet with one can Glucerna 3 times a day with trickle feeds with Glucerna 1.5 at 20 cc an hour Heme/ID: Left foot nonhealing ulceration Septic shock- resolved. History of splenectomy Thrombocytosis - resolving Leukocytosis Normocytic anemia Right Cephalic superficial venous thrombus Continue aspirin 81 mg daily for thrombocytosis likely secondary status post splenectomy. Slowly resolving. Noted hold aspirin with a lumbar puncture coming Continue heparin 5000 every 8 for superficial upper extremity thrombus. Hold secondary to lumbar puncture ordered 01/16 - blood cultures 2 - no growth 01/14 - sputum -ESBL positive Klebsiella 01/13 - blood cultures 2 14: Negative//MRSA 01/10/17 blood cultures 2 negative 01/02 sputum: NGTD 01/02 blood: NGTD 01/02 urine: NGTD. 01/02 heel wound culture enterococcus sensitive to ampicillin Stopped Zosyn/vancomycin 01/16. Ertapenem for ESBL+ Kleb pneumo x 7days started ID: Dr. Ospina following Santyl daily for foot ulcer Endocrine: Diabetes Hyperglycemia of critical illness Patient with very elevated blood sugars on 01/24. Levemir dose increased from 15 units SQ BID to 30 units SQ BID. Blood sugars more stable. Continue to Levemir and SSI with insulin Novolog Continue to hold Janumet and glyburide. MSK: Left second toe amputation No acute issues Prophylaxis: GI Prophylaxis Protonix DVt prophylaxis - SQ heparin Discharge Planning ok to transfer out of the ICU Problem Qualifiers (1) Sepsis: Qualified Code: A41.9 - Sepsis, due to unspecified organism (2) Leukocytosis: Qualified Code: D72.829 - Leukocytosis, unspecified type (3) Rhabdomyolysis: Qualified Code: M62.82 - Non-traumatic rhabdomyolysis (4) COPD (chronic obstructive pulmonary disease): (5) Hyperglycemia due to type 2 diabetes mellitus: Qualified Code: E11.65 - Type 2 diabetes mellitus with hyperglycemia, without long-term current use of insulin Nathaniel Yo MD Jan 25, 2017 12:06
[2017-01-25] MEDS: PANTOPRAZOLE SODIUM 40 MG VIAL IV PUSH SCH (22:07)
[2017-01-26] VITALS (7 sets, daily range): BP systolic 117–160; BP diastolic 70–85; PULSE 89–108; RESP 16; TEMP 97.5–98.4; O2SAT 93–97
[2017-01-26] MEDS: INSULIN NovoLIN REGULAR SUPPLEMENTAL SCALE SQ SCH ×5 (04:00→22:03)
[2017-01-26] MEDS: cloNIDine HCL 0.3 MG TAB PO SCH ×3 (05:52→22:21)
[2017-01-26] MEDS: FREE WATER G-TUBE SCH ×4 (05:52→22:21)
[2017-01-26] MEDS: ARTIFICIAL TEARS OPTH SOLN 15 ML BTL EACH EYE SCH ×2 (05:52→12:19)
[2017-01-26] MEDS: CHLORHEXIDINE 0.12% (ORAL KIT) 15 ML CUP MT SCH ×2 (07:43→22:02)
[2017-01-26] MEDS: DOCUSATE SODIUM 100 MG/10 ML UDC PO SCH ×2 (07:47→22:18)
[2017-01-26] MEDS: MULTIVITAMIN TAB PO SCH (07:47)
[2017-01-26] MEDS: INSULIN DETEMIR 100 UNITS/ML VIAL SQ SCH ×2 (07:47→22:20)
[2017-01-26] MEDS: SENNOSIDES SYRUP 8.8 MG/5 ML CUP PO SCH ×2 (07:47→22:18)
[2017-01-26] MEDS: THIAMINE HCL 100 MG TAB PO SCH (07:47)
[2017-01-26] MEDS: LACTULOSE SYRUP 20 GM/30 ML CUP PO SCH (07:47)
[2017-01-26] MEDS: SODIUM CHLORIDE 0.9% FLUSH 10 ML FLUSH IV FLUSH SCH ×2 (07:48→22:18)
[2017-01-26] MEDS: BETAMETHASONE DIPROPIONATE 0.05% CREAM 15 GM TOPICAL SCH (07:49)
[2017-01-26] MEDS: COLLAGENASE OINT 30 GM TUBE TOPICAL SCH (07:49)
[2017-01-26] MEDS: ERYTHROMYCIN 2% TOPICAL SCH ×2 (07:49→22:20)
[2017-01-26 11:49] LABS: AUTOMATED NEUTROPHIL # 7.8 TH/MM3 (1.8-7.7); BASOPHIL # 0.2 TH/MM3 (0-0.2); BASOPHIL % 1.2 % (0.0-2.0); EOSINOPHIL # 0.9 TH/MM3 (0-0.4); EOSINOPHIL % 6.6 % (0.0-4.0); HEMATOCRIT 35.4 % (39.0-51.0); HEMO FLAGS DIFF FINAL; LYMPH % 25.4 % (9.0-44.0); LYMPHOCYTE # 3.3 TH/MM3 (1.0-4.8); MEAN CELL VOLUME 94.9 FL (80.0-100.0); MEAN CORPUSCULAR HEMOGLOBIN 32.4 PG (27.0-34.0); MEAN CORPUSCULAR HGB CONC 34.1 % (32.0-36.0); MONO % 7.6 % (0.0-8.0); NEUT % 59.2 % (16.0-70.0); PLATELET COUNT 576 TH/MM3 (150-450); RED BLOOD COUNT 3.73 MIL/MM3 (4.50-5.90); RED CELL DISTRIBUTION WIDTH 14.1 % (11.6-17.2); WHITE BLOOD COUNT 13.2 TH/MM3 (4.0-11.0)
[2017-01-26 12:06] LABS: ALT (GPT) 16 U/L (12-78); ANION GAP 9 MEQ/L (5-15); AST (GOT) 14 U/L (15-37); BICARBONATE 25.4 MEQ/L (21.0-32.0); BLOOD UREA NITROGEN 33 MG/DL (7-18); CHLORIDE 104 MEQ/L (98-107); GLOMERULAR FILTRATION RATE 70 ML/MIN (>89); MAGNESIUM 2.2 MG/DL (1.5-2.5); POTASSIUM 4.1 MEQ/L (3.5-5.1); SODIUM (NA) 138 MEQ/L (136-145)
[2017-01-26 12:08] LABS: ALKALINE PHOSPHATASE 124 U/L (45-117); TOTAL BILIRUBIN ADULT 0.3 MG/DL (0.2-1.0)
--- NOTE | 2017-01-26 17:18 | HHI.PR ---
Subjective Remarks Patient is coughing denies cp/sob as per Rn patient still confused but able to talk afebrile no reported diarrhea more awake and alert Objective Vitals Vital Signs Date Time Temp Pulse Resp B/P Pulse Ox O2 Delivery O2 Flow Rate FiO2 01/26/17 16:00 97.9 97 16 117/75 95 01/26/17 12:00 98.1 97 16 137/82 97 01/26/17 08:00 97 01/26/17 08:00 Room Air 01/26/17 08:00 97.5 95 16 133/79 96 01/26/17 04:00 97.6 89 16 128/70 93 01/26/17 01:44 92 01/26/17 00:00 98.2 92 16 160/85 94 01/26/17 00:00 Room Air 01/25/17 21:11 96 21 01/25/17 20:00 97.5 94 18 117/71 97 01/25/17 18:00 Room Air I/O 01/25/17 01/25/17 01/25/17 01/26/17 01/26/17 01/26/17 07:00 15:00 23:00 07:00 15:00 23:00 Intake Total 354 ml 625 ml 675 ml 0 ml 0 ml Output Total 400 ml 450 ml 850 ml 275 ml 700 ml Balance -46 ml 175 ml -175 ml -275 ml -700 ml Intake Oral 0 ml 0 ml 0 ml 0 ml 0 ml IV Total 0 ml 0 ml 0 ml Tube Feeding 354 ml 425 ml 475 ml Other 200 ml 200 ml Output Urine Total 400 ml 450 ml 850 ml 275 ml 700 ml # Bowel Movements 0 3 3 1 Result Diagram: 01/26/17 1118 01/26/17 1118 Imaging Last Impressions Brain MRI 01/20/17 0000 Signed Impressions: Service Date/Time: Friday, January 20, 2017 11:03 - CONCLUSION: 1. No acute abnormality or significant change is seen. 2. There is a encephalomalacia at the inferior left frontal and temporal lobes. These are good locations for prior posttraumatic injuries. 3. Increased signal/fluid in the mastoid air cells bilaterally. Pk Rivera MD Chest X-Ray 01/18/17 0600 Signed Impressions: Service Date/Time: Wednesday, January 18, 2017 03:35 - CONCLUSION: Continued improvement of the left lung infiltrate. Issa Wills Jr., MD Upper Extremity Ultrasound 01/14/17 Signed Impressions: Service Date/Time: Saturday, January 14, 2017 15:01 - CONCLUSION: Thrombus is seen within the right cephalic vein. Lela Stephens MD Lower Extremity Ultrasound 01/14/17 Signed Impressions: Service Date/Time: Saturday, January 14, 2017 14:44 - CONCLUSION: No evidence of deep venous thrombosis within the lower extremities. Christian Antoine MD Chest CT 01/02/17 1645 Signed Impressions: Service Date/Time: Monday, January 02, 2017 22:10 - CONCLUSION: 1. Acute development of bilateral airspace disease as above with some peripheral sparing , especially at the bases. Findings nonspecific. Patient may be developing ARDS/diffuse alveolar damage. Other considerations include infection and severe hypersensitivity type reaction. 2. Endotracheal tube, nasogastric tube and left central line in satisfactory position. Christopher Lagos MD Head CT 01/02/17 Signed Impressions: Service Date/Time: Monday, January 02, 2017 22:08 - CONCLUSION: Normal examination for a patient of this age. No significant change has occurred. Christopher Lagos MD Lower Extremity MRI 01/01/17 Signed Impressions: Service Date/Time: Sunday, January 01, 2017 20:03 - CONCLUSION: Subcutaneous soft tissue edema distal leg. No evidence of osteomyelitis of the tibia or fibula. Issa Christiansen MD Foot X-Ray 01/01/17 Signed Impressions: Service Date/Time: Sunday, January 01, 2017 04:49 - CONCLUSION: No acute abnormality. Prior left toe amputation. Issa Wills Jr., MD Foot MRI 01/01/17 Signed Impressions: Service Date/Time: Sunday, January 01, 2017 20:03 - CONCLUSION: 1. Prominent subcutaneous soft tissue edema about the foot and ankle. 2. Abnormal signal in the distal metatarsal head of the 4th digit, characterized by T1 and T2 prolongation. Differential considerations include healing fracture and osteomyelitis. 3. Probable Aburto's neuroma in the interspace between the distal 2nd and 3rd metatarsal bones. Issa Christiansen MD Abdomen/Pelvis CT 12/31/161938 Signed Impressions: Service Date/Time: Saturday, December 31, 2016 22:46 - CONCLUSION: 1. No acute abnormality to explain the patient's pain. 2. Colonic diverticulosis. No acute inflammation. 3. Suspected small calcified gallstone. The gallbladder is nondilated. 4. 4.2 cm left adrenal gland adenoma. Issa Wills Jr., MD Abdomen X-Ray 12/31/16 0000 Signed Impressions: Service Date/Time: Saturday, December 31, 2016 19:25 - CONCLUSION: Unremarkable study except for stool. K. Earl Stephens MD Objective Remarks GENERAL: Patient is more awake, in NAD SKIN: Warm and dry. Scaly greasy rash on face HEAD: Atraumatic. Normocephalic. EYES: Pupils equal and round. No scleral icterus. No injection or drainage. ENT: No nasal bleeding or discharge. Mucous membranes pink and moist. NECK: Trachea midline. No JVD. CARDIOVASCULAR: S1S2 RRR, no MRG. RESPIRATORY: No accessory muscle use. Clear to auscultation. Breath sounds equal bilaterally. GASTROINTESTINAL: Abdomen soft, non-tender, nondistended. Hepatic and splenic margins not palpable. MUSCULOSKELETAL: Extremities without clubbing, cyanosis, or edema. No obvious deformities. NEUROLOGICAL: Patient is more awake, follows certain commands. AAOx2. PSYCHIATRIC: Patient answers some questions, others chooses no to Procedures none Medications and IVs Current Medications Medications (Trade) Dose Ordered Sig/Rip Route Start Time Stop Time Status Last Admin (NS Flush) 2 ml UNSCH PRN IV FLUSH 12/31/16 21:45 01/09/17 09:11 (NS Flush) 2 ml BID IV FLUSH 01/01/17 09:00 01/26/17 07:48 (Narcan Inj) 0.4 mg UNSCH PRN IV 12/31/16 21:45 (Lyrica) 200 mg DAILY PO 01/01/17 09:00 Hold 01/02/17 08:25 (Heparin Inj) 5,000 units Q8HR SQ 01/01/17 14:00 Hold 01/21/17 04:31 (Santyl Oint) 1 applic DAILY TOPICAL 01/01/17 19:15 01/26/17 07:49 (Peridex 0.12% Liq) 15 ml BID@08,20 MT 01/02/17 20:00 01/25/17 20:00 (Vitamin B1) 100 mg DAILY PO 01/06/17 09:00 01/26/17 07:47 (Theragran) 1 tab DAILY PO 01/03/17 09:00 01/26/17 07:47 (Protonix Inj) 40 mg Q24H IV PUSH 01/02/17 20:00 01/25/17 22:07 Miscellaneous Information Patient in critical care unit? Ass... Q361D .XX 01/02/17 21:45 (Colace Liq) 100 mg Q12HR PO 01/04/17 11:45 01/26/17 07:47 (SEROquel) 50 mg Q8HR PO 01/07/17 08:20 Hold 01/14/17 05:36 (Ativan) 1 mg Q8HR PO 01/10/17 14:00 Hold 01/14/17 05:36 (Aspirin Chew) 81 mg DAILY PO 01/12/17 09:00 Hold 01/20/17 08:27 (Tears Naturale Opth Soln) 1 drop Q8HR EACH EYE 01/12/17 17:00 01/25/17 14:00 (Tylenol) 650 mg Q4H PRN PO 01/13/17 20:15 01/17/17 21:49 (Lactulose Liq) 30 ml DAILY PO 01/14/17 09:00 01/26/17 07:47 (Senna Liq) 8.8 mg BID PO 01/14/17 09:00 01/26/17 07:47 (D50w (Vial) Inj) 25 ml UNSCH PRN IV PUSH 01/15/17 09:45 (Glucagon Inj) 1 mg UNSCH PRN OTHER 01/15/17 09:45 (NovoLIN R SUPPLEMENTAL SCALE) 1 Q4HR SQ 01/15/17 12:00 01/26/17 16:54 (Free Water) VOLUME: 200 ML Q6HR G-TUBE 01/16/17 18:00 01/26/17 16:55 (Apresoline Inj) 20 mg Q6H PRN IV 01/18/17 05:15 01/20/17 10:30 (Lopressor Inj) 5 mg Q6H PRN IV PUSH 01/18/17 23:15 01/23/17 15:30 (Catapres) 0.3 mg Q8HR PO 01/19/17 14:00 01/26/17 12:39 (Eryderm 2% Top Soln) 1 applic Q12HR TOPICAL 01/22/17 14:00 01/26/17 07:49 (Diprosone 0.05% Cream) 1 applic DAILY TOPICAL 01/23/17 09:00 01/25/17 09:00 (Levemir Inj) 30 units Q12HR SQ 01/24/17 21:00 01/26/17 07:47 Urinary Catheter: No Vascular Central Line Catheter: No A/P Problem List: (1) Sepsis ICD Code: A41.9 Status: Acute (2) Leukocytosis ICD Code: D72.829 Status: Acute (3) Encephalopathy acute ICD Code: G93.40 Status: Acute (4) Non healing left heel wound ICD Code: S91.302A Status: Chronic (5) Rhabdomyolysis ICD Code: M62.82 Status: Resolved (6) BIMAL (acute kidney injury) ICD Code: N17.9 Status: Resolved (7) COPD (chronic obstructive pulmonary disease) ICD Code: J44.9 Status: Chronic (8) Urinary retention ICD Code: R33.9 Status: Resolved (9) Left leg swelling ICD Code: M79.89 Status: Resolved (10) Hyperglycemia due to type 2 diabetes mellitus ICD Code: E11.65 Status: Resolved (11) Alcohol withdrawal ICD Code: F10.239 Status: Resolved (12) Chronic narcotic dependence ICD Code: F11.20 Status: Chronic (13) Delirium ICD Code: R41.0 Status: Resolved (14) Thrombosis of right cephalic vein ICD Code: I80.8 Status: Resolved (15) Thrombocytosis ICD Code: D47.3 Status: Acute (16) Normocytic anemia ICD Code: D64.9 Status: Acute (17) Dysphagia ICD Code: R13.10 Status: Acute (18) Seborrheic dermatitis ICD Code: L21.9 Status: Acute Assessment and Plan Neuro/Psych: Metabolic encephalopathy Alcohol withdrawal Agitated delirium Chronic narcotic use Post traumatic stress disorder dysphagia Precedex drip had been off since 2 PM 01/16 Scheduled Ativan 1 mg by mouth every 8 hours - hold with altered mental status Seroquel 50mg po q8hr - hold with altered mental status Off morphine sulfate 60 mg twice a day and oxycodone 30 mg twice a day/home medication Off Lyrica 150 milligrams by mouth twice a day IV thiamine, multivitamin and folate 01/13 MRI brain was negative for acute intracranial findings/EEG showed moderate to severe encephalopathy Negative CT head 01/02 ammonia 20 on 01/02. 37 01/13. Currently 18 01/19 MRI brain 01/20 revealed left frontal/temporal encephalomalacia. Bilateral mastoid information. EEG 01/21 revealed mild encephalomalacia. No epileptic activity. Neurology consult for further recommendations recommended neuro checks every 4 hours and monitoring. 01/25 Patient failed dysphagia evaluation currently npo on tube feedings. Patient has been refusing repeat swallow evaluations. continue NG tube and tube feedings for now. Respiratory: Acute hypoxic respiratory failure-resolved ARDS-improving Aspiration pneumonitis History of COPD Self extubated 01/14, tolerating well Nasal cannula to maintain saturations greater than equal to 92% currently on 2 L Incentive spirometry while awake Bronchodilator therapy every 6 hours and as needed Head of bed at 30 CXR resolving infiltrates Cardiovascular: Sinus tachycardia Septic shock-resolved Hypertension Grade 2 diastolic dysfunction Off lisinopril 5 mill grams by mouth daily/home medication Currently on clonidine 0.3 mg grams po [id number] Echo 01/09 revealed EF 55-60%. No regional wall motion abnormality. Grade 2 diastolic dysfunction. IV metoprolol 2.5 mg every 6 hours when necessary for HR>110 Renal: Acute kidney injury - resolving Likely prerenal/ATN secondary to sepsis. Strict I/Os, Saunders Monitor urine output Creat continues to improve Nephrology signed off. 01/16 Remove saunders catheter and place condom catheter. FEN/GI: Acute protein calorie malnutritionmild Hyperammonia Trend BMP Protonix 40 mg IV q24 Colace twice a day/Senokot twice a day and lactulose twice a day for bowel regimen. Continue NGT feeding with Glucerna 1.5 goal 50 cc an hour per nutrition recommends. Thickened liquid diet with one can Glucerna 3 times a day with trickle feeds with Glucerna 1.5 at 20 cc an hour Heme/ID: Left foot nonhealing ulceration Septic shock- resolved. History of splenectomy Thrombocytosis - resolving Leukocytosis Normocytic anemia Right Cephalic superficial venous thrombus Continue aspirin 81 mg daily for thrombocytosis likely secondary status post splenectomy. Slowly resolving. Noted hold aspirin with a lumbar puncture coming Continue heparin 5000 every 8 for superficial upper extremity thrombus. Hold secondary to lumbar puncture ordered 01/16 - blood cultures 2 - no growth 01/14 - sputum -ESBL positive Klebsiella 01/13 - blood cultures 2 14: Negative//MRSA 01/10/17 blood cultures 2 negative 01/02 sputum: NGTD 01/02 blood: NGTD 01/02 urine: NGTD. 01/02 heel wound culture enterococcus sensitive to ampicillin Stopped Zosyn/vancomycin 01/16. Ertapenem for ESBL+ Kleb pneumo x 7days started ID: Dr. Ospina following Santyl daily for foot ulcer Endocrine: Diabetes Hyperglycemia of critical illness Patient with very elevated blood sugars on 01/24. Levemir dose increased from 15 units SQ BID to 30 units SQ BID. Blood sugars more stable. Continue to Levemir and SSI with insulin Novolog Continue to hold Janumet and glyburide. MSK: Left second toe amputation No acute issues SKIN Seborrheic dermatitis Continue Bethamethasone cream. Prophylaxis: GI Prophylaxis Protonix DVt prophylaxis - SQ heparin Discharge Planning Continue to monitor in the medical floor. Problem Qualifiers (1) Sepsis: Qualified Code: A41.9 - Sepsis, due to unspecified organism (2) Leukocytosis: Qualified Code: D72.829 - Leukocytosis, unspecified type (3) Rhabdomyolysis: Qualified Code: M62.82 - Non-traumatic rhabdomyolysis (4) COPD (chronic obstructive pulmonary disease): (5) Hyperglycemia due to type 2 diabetes mellitus: Qualified Code: E11.65 - Type 2 diabetes mellitus with hyperglycemia, without long-term current use of insulin Nathaniel Yo MD Jan 26, 2017 17:18
[2017-01-26 18:32] LABS: BLOOD, URINE MOD (NEG); COMMENT (UR) CULTURE INDICATED; CULTURE IF INDICATED CULTURE INDICATED; GLUCOSE,URINE NEG (NEG); KETONE, URINE NEG (NEG); MUCUS URINE MANY /lpf (OCC); NITRITE,URINE NEG (NEG); PH, URINE 6.5 (5.0-8.5); SQUAMOUS EPITHELIAL CELL URINE 1 /hpf (0-5); URINE COLOR YELLOW (YELLW/STRAW)
[2017-01-26] MEDS: PANTOPRAZOLE SODIUM 40 MG VIAL IV PUSH SCH (22:17)
[2017-01-27] VITALS (7 sets, daily range): BP systolic 117–141; BP diastolic 74–88; PULSE 83–98; RESP 16–20; TEMP 97.5–98.4; O2SAT 94–97
[2017-01-27] MEDS: ARTIFICIAL TEARS OPTH SOLN 15 ML BTL EACH EYE SCH ×4 (00:14→23:17)
[2017-01-27] MEDS: INSULIN NovoLIN REGULAR SUPPLEMENTAL SCALE SQ SCH ×5 (01:25→23:15)
[2017-01-27] MEDS: FREE WATER G-TUBE SCH ×4 (06:41→23:18)
[2017-01-27] MEDS: cloNIDine HCL 0.3 MG TAB PO SCH ×3 (06:41→23:13)
[2017-01-27] MEDS: CHLORHEXIDINE 0.12% (ORAL KIT) 15 ML CUP MT SCH ×2 (08:00→20:00)
[2017-01-27] MEDS: THIAMINE HCL 100 MG TAB PO SCH (08:39)
[2017-01-27] MEDS: DOCUSATE SODIUM 100 MG/10 ML UDC PO SCH ×2 (08:39→23:12)
[2017-01-27] MEDS: LACTULOSE SYRUP 20 GM/30 ML CUP PO SCH (08:40)
[2017-01-27] MEDS: SENNOSIDES SYRUP 8.8 MG/5 ML CUP PO SCH ×2 (08:40→23:12)
[2017-01-27] MEDS: MULTIVITAMIN TAB PO SCH (08:40)
[2017-01-27] MEDS: INSULIN DETEMIR 100 UNITS/ML VIAL SQ SCH ×2 (08:41→23:15)
[2017-01-27] MEDS: ERYTHROMYCIN 2% TOPICAL SCH ×2 (08:42→23:17)
[2017-01-27] MEDS: BETAMETHASONE DIPROPIONATE 0.05% CREAM 15 GM TOPICAL SCH (08:42)
[2017-01-27] MEDS: COLLAGENASE OINT 30 GM TUBE TOPICAL SCH (08:42)
[2017-01-27] MEDS: SODIUM CHLORIDE 0.9% FLUSH 10 ML FLUSH IV FLUSH SCH ×2 (08:43→23:17)
[2017-01-27 10:37] LABS: HEMATOCRIT 33.5 % (39.0-51.0); MEAN CELL VOLUME 95.6 FL (80.0-100.0); MEAN CORPUSCULAR HEMOGLOBIN 32.5 PG (27.0-34.0); PLATELET COUNT 561 TH/MM3 (150-450); REVIEW FLAG FINAL; WHITE BLOOD COUNT 13.5 TH/MM3 (4.0-11.0)
[2017-01-27 11:03] LABS: POTASSIUM 4.2 MEQ/L (3.5-5.1)
--- NOTE | 2017-01-27 15:18 | HHI.PR ---
Subjective Remarks Patient is awake and alert Coughing Denies chest pain or shortness of breath. Vital signs stable Objective Vitals Vital Signs Date Time Temp Pulse Resp B/P Pulse Ox O2 Delivery O2 Flow Rate FiO2 01/27/17 12:00 98.3 83 18 137/83 96 01/27/17 08:43 Room Air 01/27/17 08:00 98.2 94 18 117/80 97 01/27/17 07:37 96 21 01/27/17 04:00 98.0 92 18 131/75 95 01/27/17 00:00 98.2 98 16 128/74 94 01/26/17 20:00 Room Air 01/26/17 20:00 101 01/26/17 20:00 98.4 101 16 132/77 95 01/26/17 16:00 97.9 97 16 117/75 95 I/O 01/26/17 01/26/17 01/26/17 01/27/17 01/27/17 01/27/17 07:00 15:00 23:00 07:00 15:00 23:00 Intake Total 0 ml 0 ml 0 ml 0 ml 820 ml Output Total 275 ml 700 ml 200 ml 500 ml Balance -275 ml -700 ml -200 ml -500 ml 820 ml Intake Oral 0 ml 0 ml 0 ml 0 ml Tube Feeding 820 ml Output Urine Total 275 ml 700 ml 200 ml 500 ml # Bowel Movements 1 1 0 Result Diagram: 01/27/17 0822 01/27/17 0822 Imaging Last Impressions Brain MRI 01/20/17 0000 Signed Impressions: Service Date/Time: Friday, January 20, 2017 11:03 - CONCLUSION: 1. No acute abnormality or significant change is seen. 2. There is a encephalomalacia at the inferior left frontal and temporal lobes. These are good locations for prior posttraumatic injuries. 3. Increased signal/fluid in the mastoid air cells bilaterally. Pk Rivera MD Chest X-Ray 01/18/17 0600 Signed Impressions: Service Date/Time: Wednesday, January 18, 2017 03:35 - CONCLUSION: Continued improvement of the left lung infiltrate. Issa Wills Jr., MD Upper Extremity Ultrasound 01/14/17 0000 Signed Impressions: Service Date/Time: Saturday, January 14, 2017 15:01 - CONCLUSION: Thrombus is seen within the right cephalic vein. Lela Stephens MD Lower Extremity Ultrasound 01/14/17 0000 Signed Impressions: Service Date/Time: Saturday, January 14, 2017 14:44 - CONCLUSION: No evidence of deep venous thrombosis within the lower extremities. Christian Antoine MD Chest CT 01/02/17 1645 Signed Impressions: Service Date/Time: Monday, January 02, 2017 22:10 - CONCLUSION: 1. Acute development of bilateral airspace disease as above with some peripheral sparing , especially at the bases. Findings nonspecific. Patient may be developing ARDS/diffuse alveolar damage. Other considerations include infection and severe hypersensitivity type reaction. 2. Endotracheal tube, nasogastric tube and left central line in satisfactory position. Christopher Lagos MD Head CT 01/02/17 0000 Signed Impressions: Service Date/Time: Monday, January 02, 2017 22:08 - CONCLUSION: Normal examination for a patient of this age. No significant change has occurred. Christopher Lagos MD Lower Extremity MRI 01/01/17 0000 Signed Impressions: Service Date/Time: Sunday, January 01, 2017 20:03 - CONCLUSION: Subcutaneous soft tissue edema distal leg. No evidence of osteomyelitis of the tibia or fibula. Issa Christiansen MD Foot X-Ray 01/01/17 0000 Signed Impressions: Service Date/Time: Sunday, January 01, 2017 04:49 - CONCLUSION: No acute abnormality. Prior left toe amputation. Issa Wills Jr., MD Foot MRI 01/01/17 0000 Signed Impressions: Service Date/Time: Sunday, January 01, 2017 20:03 - CONCLUSION: 1. Prominent subcutaneous soft tissue edema about the foot and ankle. 2. Abnormal signal in the distal metatarsal head of the 4th digit, characterized by T1 and T2 prolongation. Differential considerations include healing fracture and osteomyelitis. 3. Probable Aburto's neuroma in the interspace between the distal 2nd and 3rd metatarsal bones. Issa Christiansen MD Abdomen/Pelvis CT 12/31/161938 Signed Impressions: Service Date/Time: Saturday, December 31, 2016 22:46 - CONCLUSION: 1. No acute abnormality to explain the patient's pain. 2. Colonic diverticulosis. No acute inflammation. 3. Suspected small calcified gallstone. The gallbladder is nondilated. 4. 4.2 cm left adrenal gland adenoma. Issa Wills Jr., MD Abdomen X-Ray 12/31/16 0000 Signed Impressions: Service Date/Time: Saturday, December 31, 2016 19:25 - CONCLUSION: Unremarkable study except for stool. Lela Stephens MD Objective Remarks GENERAL: Patient is more awake, in NAD SKIN: Warm and dry. Scaly greasy rash on face HEAD: Atraumatic. Normocephalic. EYES: Pupils equal and round. No scleral icterus. No injection or drainage. ENT: No nasal bleeding or discharge. Mucous membranes pink and moist. NECK: Trachea midline. No JVD. CARDIOVASCULAR: S1S2 RRR, no MRG. RESPIRATORY: No accessory muscle use. Clear to auscultation. Breath sounds equal bilaterally. GASTROINTESTINAL: Abdomen soft, non-tender, nondistended. Hepatic and splenic margins not palpable. MUSCULOSKELETAL: Extremities without clubbing, cyanosis, or edema. No obvious deformities. NEUROLOGICAL: Patient is more awake, follows certain commands. AAOx2. PSYCHIATRIC: Patient answers some questions, others chooses no to Procedures none Medications and IVs Current Medications Medications (Trade) Dose Ordered Sig/Rip Route Start Time Stop Time Status Last Admin (NS Flush) 2 ml UNSCH PRN IV FLUSH 12/31/16 21:45 01/09/17 09:11 (NS Flush) 2 ml BID IV FLUSH 01/01/17 09:00 01/27/17 08:43 (Narcan Inj) 0.4 mg UNSCH PRN IV 12/31/16 21:45 (Lyrica) 200 mg DAILY PO 01/01/17 09:00 Hold 01/02/17 08:25 (Heparin Inj) 5,000 units Q8HR SQ 01/01/17 14:00 Hold 01/21/17 04:31 (Santyl Oint) 1 applic DAILY TOPICAL 01/01/17 19:15 01/27/17 08:42 (Peridex 0.12% Liq) 15 ml BID@08,20 MT 01/02/17 20:00 01/26/17 22:02 (Vitamin B1) 100 mg DAILY PO 01/06/17 09:00 01/27/17 08:39 (Theragran) 1 tab DAILY PO 01/03/17 09:00 01/27/17 08:40 (Protonix Inj) 40 mg Q24H IV PUSH 01/02/17 20:00 01/26/17 22:17 Miscellaneous Information Patient in critical care unit? Ass... Q361D .XX 01/02/17 21:45 (Colace Liq) 100 mg Q12HR PO 01/04/17 11:45 01/27/17 08:39 (SEROquel) 50 mg Q8HR PO 01/07/17 08:20 Hold 01/14/17 05:36 (Ativan) 1 mg Q8HR PO 01/10/17 14:00 Hold 01/14/17 05:36 (Aspirin Chew) 81 mg DAILY PO 01/12/17 09:00 Hold 01/20/17 08:27 (Tears Naturale Opth Soln) 1 drop Q8HR EACH EYE 01/12/17 17:00 01/27/17 10:53 (Tylenol) 650 mg Q4H PRN PO 01/13/17 20:15 01/17/17 21:49 (Lactulose Liq) 30 ml DAILY PO 01/14/17 09:00 01/27/17 08:40 (Senna Liq) 8.8 mg BID PO 01/14/17 09:00 01/27/17 08:40 (D50w (Vial) Inj) 25 ml UNSCH PRN IV PUSH 01/15/17 09:45 (Glucagon Inj) 1 mg UNSCH PRN OTHER 01/15/17 09:45 (NovoLIN R SUPPLEMENTAL SCALE) 1 Q4HR SQ 01/15/17 12:00 01/27/17 10:56 (Free Water) VOLUME: 200 ML Q6HR G-TUBE 01/16/17 18:00 01/27/17 10:49 (Apresoline Inj) 20 mg Q6H PRN IV 01/18/17 05:15 01/20/17 10:30 (Lopressor Inj) 5 mg Q6H PRN IV PUSH 01/18/17 23:15 01/23/17 15:30 (Catapres) 0.3 mg Q8HR PO 01/19/17 14:00 01/27/17 10:53 (Eryderm 2% Top Soln) 1 applic Q12HR TOPICAL 01/22/17 14:00 01/27/17 08:42 (Diprosone 0.05% Cream) 1 applic DAILY TOPICAL 01/23/17 09:00 01/25/17 09:00 (Levemir Inj) 30 units Q12HR SQ 01/24/17 21:00 01/27/17 08:41 Urinary Catheter: No Vascular Central Line Catheter: No A/P Problem List: (1) Sepsis ICD Code: A41.9 Status: Acute (2) Leukocytosis ICD Code: D72.829 Status: Acute (3) Encephalopathy acute ICD Code: G93.40 Status: Acute (4) Non healing left heel wound ICD Code: S91.302A Status: Chronic (5) Rhabdomyolysis ICD Code: M62.82 Status: Resolved (6) BIMAL (acute kidney injury) ICD Code: N17.9 Status: Resolved (7) COPD (chronic obstructive pulmonary disease) ICD Code: J44.9 Status: Chronic (8) Urinary retention ICD Code: R33.9 Status: Resolved (9) Left leg swelling ICD Code: M79.89 Status: Resolved (10) Hyperglycemia due to type 2 diabetes mellitus ICD Code: E11.65 Status: Resolved (11) Alcohol withdrawal ICD Code: F10.239 Status: Resolved (12) Chronic narcotic dependence ICD Code: F11.20 Status: Chronic (13) Delirium ICD Code: R41.0 Status: Resolved (14) Thrombosis of right cephalic vein ICD Code: I80.8 Status: Resolved (15) Thrombocytosis ICD Code: D47.3 Status: Acute (16) Normocytic anemia ICD Code: D64.9 Status: Acute (17) Dysphagia ICD Code: R13.10 Status: Acute (18) Seborrheic dermatitis ICD Code: L21.9 Status: Acute Assessment and Plan Neuro/Psych: Metabolic encephalopathy Alcohol withdrawal Agitated delirium Chronic narcotic use Post traumatic stress disorder dysphagia Precedex drip had been off since 2 PM 01/16 Scheduled Ativan 1 mg by mouth every 8 hours - hold with altered mental status Seroquel 50mg po q8hr - hold with altered mental status Off morphine sulfate 60 mg twice a day and oxycodone 30 mg twice a day/home medication Off Lyrica 150 milligrams by mouth twice a day IV thiamine, multivitamin and folate 01/13 MRI brain was negative for acute intracranial findings/EEG showed moderate to severe encephalopathy Negative CT head 01/02 ammonia 20 on 01/02. 37 01/13. Currently 18 01/19 MRI brain 01/20 revealed left frontal/temporal encephalomalacia. Bilateral mastoid information. EEG 01/21 revealed mild encephalomalacia. No epileptic activity. Neurology consult for further recommendations recommended neuro checks every 4 hours and monitoring. Patient failed dysphagia evaluation currently npo on tube feedings. Patient has been refusing repeat swallow evaluations. continue NG tube and tube feedings for now. Respiratory: Acute hypoxic respiratory failure-resolved ARDS-improving Aspiration pneumonitis History of COPD Self extubated 01/14, tolerating well Nasal cannula to maintain saturations greater than equal to 92% currently on 2 L Incentive spirometry while awake Bronchodilator therapy every 6 hours and as needed Head of bed at 30 CXR resolving infiltrates Cardiovascular: Sinus tachycardia Septic shock-resolved Hypertension Grade 2 diastolic dysfunction Off lisinopril 5 mill grams by mouth daily/home medication Currently on clonidine 0.3 mg grams po [id number] Echo 01/09 revealed EF 55-60%. No regional wall motion abnormality. Grade 2 diastolic dysfunction. IV metoprolol 2.5 mg every 6 hours when necessary for HR>110 Renal: Acute kidney injury - resolving Likely prerenal/ATN secondary to sepsis. Strict I/Os, Saunders Monitor urine output Creat continues to improve Nephrology signed off. 01/16 Remove saunders catheter and place condom catheter. FEN/GI: Acute protein calorie malnutritionmild Hyperammonia Trend BMP Protonix 40 mg IV q24 Colace twice a day/Senokot twice a day and lactulose twice a day for bowel regimen. Continue NGT feeding with Glucerna 1.5 goal 50 cc an hour per nutrition recommends. Thickened liquid diet with one can Glucerna 3 times a day with trickle feeds with Glucerna 1.5 at 20 cc an hour Heme/ID: Left foot nonhealing ulceration Septic shock- resolved. History of splenectomy Thrombocytosis - resolving Leukocytosis Normocytic anemia Right Cephalic superficial venous thrombus Continue aspirin 81 mg daily for thrombocytosis likely secondary status post splenectomy. Slowly resolving. Noted hold aspirin with a lumbar puncture coming Continue heparin 5000 every 8 for superficial upper extremity thrombus. Hold secondary to lumbar puncture ordered 01/16 - blood cultures 2 - no growth 01/14 - sputum -ESBL positive Klebsiella 01/13 - blood cultures 2 14: Negative//MRSA 01/10/17 blood cultures 2 negative 01/02 sputum: NGTD 01/02 blood: NGTD 01/02 urine: NGTD. 01/02 heel wound culture enterococcus sensitive to ampicillin Stopped Zosyn/vancomycin 01/16. Ertapenem for ESBL+ Kleb pneumo x 7days started ID: Dr. Ospina following Santyl daily for foot ulcer Endocrine: Diabetes Hyperglycemia of critical illness Patient with very elevated blood sugars on 01/24. Levemir dose increased from 15 units SQ BID to 30 units SQ BID. Blood sugars more stable. Continue to Levemir and SSI with insulin Novolog Continue to hold Janumet and glyburide. MSK: Left second toe amputation No acute issues SKIN Seborrheic dermatitis Continue Bethamethasone cream. Prophylaxis: GI Prophylaxis Protonix DVt prophylaxis - SQ heparin Discharge Planning Continue to monitor in the medical floor. Problem Qualifiers (1) Sepsis: Qualified Code: A41.9 - Sepsis, due to unspecified organism (2) Leukocytosis: Qualified Code: D72.829 - Leukocytosis, unspecified type (3) Rhabdomyolysis: Qualified Code: M62.82 - Non-traumatic rhabdomyolysis (4) COPD (chronic obstructive pulmonary disease): (5) Hyperglycemia due to type 2 diabetes mellitus: Qualified Code: E11.65 - Type 2 diabetes mellitus with hyperglycemia, without long-term current use of insulin Nathaniel Yo MD Jan 27, 2017 15:18
[2017-01-27] MEDS: SODIUM CHLOR 0.9% 1000 ML INJ 1,000 ML IV SCH (17:18)
[2017-01-27] MEDS: PANTOPRAZOLE SODIUM 40 MG VIAL IV PUSH SCH (23:17)
[2017-01-28] VITALS (10 sets, daily range): BP systolic 104–145; BP diastolic 58–88; PULSE 77–94; RESP 18–20; TEMP 97.3–98.5; O2SAT 95–97
[2017-01-28] MEDS: INSULIN NovoLIN REGULAR SUPPLEMENTAL SCALE SQ SCH ×6 (01:15→20:00)
[2017-01-28] MEDS: SODIUM CHLOR 0.9% 1000 ML INJ 1,000 ML IV SCH ×3 (03:23→21:14)
[2017-01-28] MEDS: ARTIFICIAL TEARS OPTH SOLN 15 ML BTL EACH EYE SCH ×3 (04:57→21:14)
[2017-01-28] MEDS: FREE WATER G-TUBE SCH ×3 (04:57→17:43)
[2017-01-28] MEDS: cloNIDine HCL 0.3 MG TAB PO SCH ×3 (04:58→21:11)
[2017-01-28] MEDS: SODIUM CHLORIDE 0.9% FLUSH 10 ML FLUSH IV FLUSH SCH ×2 (09:21→21:00)
[2017-01-28] MEDS: CHLORHEXIDINE 0.12% (ORAL KIT) 15 ML CUP MT SCH ×2 (09:21→20:00)
[2017-01-28] MEDS: LACTULOSE SYRUP 20 GM/30 ML CUP PO SCH (09:22)
[2017-01-28] MEDS: SENNOSIDES SYRUP 8.8 MG/5 ML CUP PO SCH ×2 (09:22→21:11)
[2017-01-28] MEDS: DOCUSATE SODIUM 100 MG/10 ML UDC PO SCH ×2 (09:22→21:11)
[2017-01-28] MEDS: MULTIVITAMIN TAB PO SCH (09:22)
[2017-01-28] MEDS: THIAMINE HCL 100 MG TAB PO SCH (09:22)
[2017-01-28] MEDS: INSULIN DETEMIR 100 UNITS/ML VIAL SQ SCH ×2 (09:22→21:12)
[2017-01-28] MEDS: COLLAGENASE OINT 30 GM TUBE TOPICAL SCH (09:22)
[2017-01-28] MEDS: BETAMETHASONE DIPROPIONATE 0.05% CREAM 15 GM TOPICAL SCH (09:40)
[2017-01-28] MEDS: ERYTHROMYCIN 2% TOPICAL SCH ×2 (09:40→21:13)
--- NOTE | 2017-01-28 19:13 | HHI.PR ---
Objective Vitals Vital Signs Date Time Temp Pulse Resp B/P Pulse Ox O2 Delivery O2 Flow Rate FiO2 01/28/17 12:00 97.9 79 18 136/79 95 01/28/17 09:41 Room Air 01/28/17 09:41 89 01/28/17 08:00 97.7 81 18 124/58 96 01/28/17 04:00 97.9 94 20 104/66 97 01/28/17 00:00 98.3 86 20 145/83 96 01/27/17 20:00 88 01/27/17 20:00 Room Air 01/27/17 20:00 97.5 86 20 141/88 96 I/O 01/27/17 01/27/17 01/27/17 01/28/17 01/28/17 01/28/17 07:00 15:00 23:00 07:00 15:00 23:00 Intake Total 0 ml 820 ml 1574 ml 0 ml 1714 ml Output Total 500 ml 0 ml 400 ml Balance -500 ml 820 ml 1574 ml -400 ml 1714 ml Intake Oral 0 ml 0 ml 0 ml IV Total 1146 ml 1249 ml Tube Feeding 820 ml 428 ml 465 ml Output Urine Total 500 ml 0 ml 400 ml Bladder Scan Volume Amount 450 ml # Bowel Movements 0 0 0 Result Diagram: 01/27/1782101/27/17821 Imaging Last Impressions Brain MRI 01/20/17 0000 Signed Impressions: Service Date/Time: Friday, January 20, 2017 11:03 - CONCLUSION: 1. No acute abnormality or significant change is seen. 2. There is a encephalomalacia at the inferior left frontal and temporal lobes. These are good locations for prior posttraumatic injuries. 3. Increased signal/fluid in the mastoid air cells bilaterally. Pk Rivera MD Chest X-Ray 01/18/17 0600 Signed Impressions: Service Date/Time: Wednesday, January 18, 2017 03:35 - CONCLUSION: Continued improvement of the left lung infiltrate. Issa Wills Jr., MD Upper Extremity Ultrasound 01/14/17 0000 Signed Impressions: Service Date/Time: Saturday, January 14, 2017 15:01 - CONCLUSION: Thrombus is seen within the right cephalic vein. Lela Stephens MD Lower Extremity Ultrasound 01/14/17 0000 Signed Impressions: Service Date/Time: Saturday, January 14, 2017 14:44 - CONCLUSION: No evidence of deep venous thrombosis within the lower extremities. Christian Antoine MD Chest CT 01/02/17 1645 Signed Impressions: Service Date/Time: Monday, January 02, 2017 22:10 - CONCLUSION: 1. Acute development of bilateral airspace disease as above with some peripheral sparing , especially at the bases. Findings nonspecific. Patient may be developing ARDS/diffuse alveolar damage. Other considerations include infection and severe hypersensitivity type reaction. 2. Endotracheal tube, nasogastric tube and left central line in satisfactory position. Christopher Lagos MD Head CT 01/02/17 0000 Signed Impressions: Service Date/Time: Monday, January 02, 2017 22:08 - CONCLUSION: Normal examination for a patient of this age. No significant change has occurred. Christopher Lagos MD Lower Extremity MRI 01/01/17 0000 Signed Impressions: Service Date/Time: Sunday, January 01, 2017 20:03 - CONCLUSION: Subcutaneous soft tissue edema distal leg. No evidence of osteomyelitis of the tibia or fibula. Issa Christiansen MD Foot X-Ray 01/01/17 0000 Signed Impressions: Service Date/Time: Sunday, January 01, 2017 04:49 - CONCLUSION: No acute abnormality. Prior left toe amputation. Issa Wills Jr., MD Foot MRI 01/01/17 0000 Signed Impressions: Service Date/Time: Sunday, January 01, 2017 20:03 - CONCLUSION: 1. Prominent subcutaneous soft tissue edema about the foot and ankle. 2. Abnormal signal in the distal metatarsal head of the 4th digit, characterized by T1 and T2 prolongation. Differential considerations include healing fracture and osteomyelitis. 3. Probable Aburto's neuroma in the interspace between the distal 2nd and 3rd metatarsal bones. Issa Christiansen MD Abdomen/Pelvis CT 12/31/16 193 Signed Impressions: Service Date/Time: Saturday, December 31, 2016 22:46 - CONCLUSION: 1. No acute abnormality to explain the patient's pain. 2. Colonic diverticulosis. No acute inflammation. 3. Suspected small calcified gallstone. The gallbladder is nondilated. 4. 4.2 cm left adrenal gland adenoma. Issa Wills Jr., MD Abdomen X-Ray 12/31/16 0000 Signed Impressions: Service Date/Time: Saturday, December 31, 2016 19:25 - CONCLUSION: Unremarkable study except for stool. Lela Stephens MD Objective Remarks GENERAL: Alert, NAD. NG tube in place. SKIN: Warm and dry. HEAD: Normocephalic. EYES: No scleral icterus. No injection or drainage. NECK: Supple, trachea midline. No JVD or lymphadenopathy. CARDIOVASCULAR: Regular rate and rhythm without murmurs, gallops, or rubs. RESPIRATORY: Breath sounds equal bilaterally. No accessory muscle use. GASTROINTESTINAL: Abdomen soft, non-tender, nondistended. MUSCULOSKELETAL: No cyanosis, or edema. BACK: Nontender without obvious deformity. No CVA tenderness. Procedures Intubation 01/02/2017 A/P Problem List: (1) Sepsis ICD Code: A41.9 Status: Acute (2) Leukocytosis ICD Code: D72.829 Status: Acute (3) Encephalopathy acute ICD Code: G93.40 Status: Acute (4) Non healing left heel wound ICD Code: S91.302A Status: Chronic (5) Rhabdomyolysis ICD Code: M62.82 Status: Resolved (6) BIMAL (acute kidney injury) ICD Code: N17.9 Status: Resolved (7) COPD (chronic obstructive pulmonary disease) ICD Code: J44.9 Status: Chronic (8) Urinary retention ICD Code: R33.9 Status: Resolved (9) Left leg swelling ICD Code: M79.89 Status: Resolved (10) Hyperglycemia due to type 2 diabetes mellitus ICD Code: E11.65 Status: Resolved (11) Alcohol withdrawal ICD Code: F10.239 Status: Resolved (12) Chronic narcotic dependence ICD Code: F11.20 Status: Chronic (13) Delirium ICD Code: R41.0 Status: Resolved (14) Thrombosis of right cephalic vein ICD Code: I80.8 Status: Resolved (15) Thrombocytosis ICD Code: D47.3 Status: Acute (16) Normocytic anemia ICD Code: D64.9 Status: Acute (17) Dysphagia ICD Code: R13.10 Status: Acute (18) Seborrheic dermatitis ICD Code: L21.9 Status: Acute Assessment and Plan Mr. Israel is a 56 year old male who originally came to the ED on 12/31/2016 due to left foot wound. ID felt that left food wound was likely chronic osteomyelitis. Patient became delirious and alcohol withdrawal was suspected. On 01/02/2017, rapid response was called due to unresponsiveness. His O2 sat was 30% and patient was emergently transferred to the ICU and was intubated. ICU work up indicated ARDS. He required broad spectrum anti-microbials as well as pressors. He self extubated himself on 01/14/2017. Patient remained in the ICU up until 01/23/2017. - Metabolic encephalopathy - Alcohol withdrawal - MRI brain on 01/13/2017 was negative for acute intracranial findings/EEG showed moderate to severe encephalopathy - MRI brain 01/20 revealed left frontal/temporal encephalomalacia. - Patient failed dysphagia evaluation and required tube feeding using an NG tube. - Will ask Speech therapy to re-evaluate. If appropriate, we will try to discontinue NG tube. - Acute hypoxic respiratory failure - resolved. - Acute respiratory distress syndrome - resolved. - Septic shock secondary to aspiration pneumonia - aspiration pneumonia - culture grew ESBL positive Klebsiella. - Patient finished a course of Ertapenem. - Patient is currently on room air. - Continue DupNeb PRN - Continue incentive spirometry. - Acute kidney injury - Creatinine improved from 4.86 on admission to 1.13 on . - Diabetes mellitus - Levemir 30 units Q12hrs. Sliding scale insulin. - Hypertension - Continue Clonidine 0.3mg Q8hrs. May need to wean off Clonidine and start first line anti-hypertensives. Full code. SCDs. Consider re-starting Heparin SQ. Problem Qualifiers (1) Sepsis: Qualified Code: A41.9 - Sepsis, due to unspecified organism (2) Leukocytosis: Qualified Code: D72.829 - Leukocytosis, unspecified type (3) Rhabdomyolysis: Qualified Code: M62.82 - Non-traumatic rhabdomyolysis (4) COPD (chronic obstructive pulmonary disease): (5) Hyperglycemia due to type 2 diabetes mellitus: Qualified Code: E11.65 - Type 2 diabetes mellitus with hyperglycemia, without long-term current use of insulin Lux Huizar DO January 28, 2017 19:13
[2017-01-28] MEDS: PANTOPRAZOLE SODIUM 40 MG VIAL IV PUSH SCH (21:12)
[2017-01-29] VITALS (8 sets, daily range): BP systolic 99–145; BP diastolic 62–80; PULSE 59–80; RESP 18–20; TEMP 97.2–98.1; O2SAT 96–99
[2017-01-29] MEDS: INSULIN NovoLIN REGULAR SUPPLEMENTAL SCALE SQ SCH ×6 (03:54→20:00)
[2017-01-29] MEDS: FREE WATER G-TUBE SCH ×4 (05:46→16:35)
[2017-01-29] MEDS: cloNIDine HCL 0.3 MG TAB PO SCH ×3 (05:46→22:00)
[2017-01-29] MEDS: ARTIFICIAL TEARS OPTH SOLN 15 ML BTL EACH EYE SCH ×3 (05:46→22:07)
[2017-01-29] MEDS: SODIUM CHLOR 0.9% 1000 ML INJ 1,000 ML IV SCH ×2 (09:18→21:49)
[2017-01-29] MEDS: SODIUM CHLORIDE 0.9% FLUSH 10 ML FLUSH IV FLUSH SCH ×2 (09:18→21:00)
[2017-01-29] MEDS: CHLORHEXIDINE 0.12% (ORAL KIT) 15 ML CUP MT SCH ×2 (09:18→20:00)
[2017-01-29] MEDS: COLLAGENASE OINT 30 GM TUBE TOPICAL SCH (09:19)
[2017-01-29] MEDS: BETAMETHASONE DIPROPIONATE 0.05% CREAM 15 GM TOPICAL SCH (09:19)
[2017-01-29] MEDS: MULTIVITAMIN TAB PO SCH (09:19)
[2017-01-29] MEDS: INSULIN DETEMIR 100 UNITS/ML VIAL SQ SCH ×2 (09:19→21:00)
[2017-01-29] MEDS: ERYTHROMYCIN 2% TOPICAL SCH ×2 (09:19→21:51)
[2017-01-29] MEDS: THIAMINE HCL 100 MG TAB PO SCH (09:19)
[2017-01-29] MEDS: SENNOSIDES SYRUP 8.8 MG/5 ML CUP PO SCH ×2 (09:24→21:50)
[2017-01-29] MEDS: DOCUSATE SODIUM 100 MG/10 ML UDC PO SCH ×2 (09:24→21:50)
[2017-01-29] MEDS: LACTULOSE SYRUP 20 GM/30 ML CUP PO SCH (09:24)
--- NOTE | 2017-01-29 11:07 | HHI.PR ---
Subjective Remarks Follow up for respiratory failure, encephalopathy. Mr. Israel is doing well. Does not talk much. Denies any fever, chills. No acute concerns. Objective Vitals Vital Signs Date Time Temp Pulse Resp B/P Pulse Ox O2 Delivery O2 Flow Rate FiO2 01/29/17 08:00 97.4 74 18 128/74 96 01/29/17 04:20 98.1 80 18 145/80 97 01/29/17 00:00 Room Air 01/28/17 23:50 97.6 80 18 136/68 95 01/28/17 21:09 82 01/28/17 20:04 95 21 01/28/17 20:00 Room Air 01/28/17 20:00 98.1 77 18 135/80 97 01/28/17 16:08 97.3 79 18 133/76 95 01/28/17 12:00 97.9 79 18 136/79 95 I/O 01/28/17 01/28/17 01/28/17 01/29/17 01/29/17 01/29/17 07:00 15:00 23:00 07:00 15:00 23:00 Intake Total 1574 ml 0 ml 2188 ml 1662 ml Output Total 400 ml 475 ml 525 ml Balance 1574 ml -400 ml 1713 ml 1137 ml Intake Oral 0 ml 0 ml 0 ml IV Total 1146 ml 1572 ml 842 ml Tube Feeding 428 ml 616 ml 420 ml Tube Irrigant 400 ml Output Urine Total 400 ml 475 ml 525 ml # Bowel Movements 0 0 0 Result Diagram: 01/27/17 0822 01/27/17 0822 Imaging Last Impressions Brain MRI 01/20/17 0000 Signed Impressions: Service Date/Time: Friday, January 20, 2017 11:03 - CONCLUSION: 1. No acute abnormality or significant change is seen. 2. There is a encephalomalacia at the inferior left frontal and temporal lobes. These are good locations for prior posttraumatic injuries. 3. Increased signal/fluid in the mastoid air cells bilaterally. Pk Rivera MD Chest X-Ray 01/18/17 0600 Signed Impressions: Service Date/Time: Wednesday, January 18, 2017 03:35 - CONCLUSION: Continued improvement of the left lung infiltrate. Issa Wills Jr., MD Upper Extremity Ultrasound 01/14/17 0000 Signed Impressions: Service Date/Time: Saturday, January 14, 2017 15:01 - CONCLUSION: Thrombus is seen within the right cephalic vein. Lela Stephens MD Lower Extremity Ultrasound 01/14/17 0000 Signed Impressions: Service Date/Time: Saturday, January 14, 2017 14:44 - CONCLUSION: No evidence of deep venous thrombosis within the lower extremities. Christian Antoine MD Chest CT 01/02/17 1645 Signed Impressions: Service Date/Time: Monday, January 02, 2017 22:10 - CONCLUSION: 1. Acute development of bilateral airspace disease as above with some peripheral sparing , especially at the bases. Findings nonspecific. Patient may be developing ARDS/diffuse alveolar damage. Other considerations include infection and severe hypersensitivity type reaction. 2. Endotracheal tube, nasogastric tube and left central line in satisfactory position. Chrisotpher Lagos MD Head CT 01/02/17 0000 Signed Impressions: Service Date/Time: Monday, January 02, 2017 22:08 - CONCLUSION: Normal examination for a patient of this age. No significant change has occurred. Christopher Lagos MD Lower Extremity MRI 01/01/17 0000 Signed Impressions: Service Date/Time: Sunday, January 01, 2017 20:03 - CONCLUSION: Subcutaneous soft tissue edema distal leg. No evidence of osteomyelitis of the tibia or fibula. Issa Christiansen MD Foot X-Ray 01/01/17 0000 Signed Impressions: Service Date/Time: Sunday, January 01, 2017 04:49 - CONCLUSION: No acute abnormality. Prior left toe amputation. Issa Wills Jr., MD Foot MRI 01/01/17 0000 Signed Impressions: Service Date/Time: Sunday, January 01, 2017 20:03 - CONCLUSION: 1. Prominent subcutaneous soft tissue edema about the foot and ankle. 2. Abnormal signal in the distal metatarsal head of the 4th digit, characterized by T1 and T2 prolongation. Differential considerations include healing fracture and osteomyelitis. 3. Probable Aburto's neuroma in the interspace between the distal 2nd and 3rd metatarsal bones. Issa Christiansen MD Abdomen/Pelvis CT [id number]/31/161938 Signed Impressions: Service Date/Time: Saturday, December 31, 2016 22:46 - CONCLUSION: 1. No acute abnormality to explain the patient's pain. 2. Colonic diverticulosis. No acute inflammation. 3. Suspected small calcified gallstone. The gallbladder is nondilated. 4. 4.2 cm left adrenal gland adenoma. Issa Wills Jr., MD Abdomen X-Ray 12/31/16 0000 Signed Impressions: Service Date/Time: Saturday, December 31, 2016 19:25 - CONCLUSION: Unremarkable study except for stool. Lela Stephens MD Objective Remarks GENERAL: Alert, NAD. SKIN: Warm and dry. HEAD: Normocephalic. EYES: No scleral icterus. No injection or drainage. NECK: Supple, trachea midline. No JVD or lymphadenopathy. CARDIOVASCULAR: Regular rate and rhythm without murmurs, gallops, or rubs. RESPIRATORY: Breath sounds equal bilaterally. No accessory muscle use. GASTROINTESTINAL: Abdomen soft, non-tender, nondistended. MUSCULOSKELETAL: No cyanosis, or edema. BACK: Nontender without obvious deformity. No CVA tenderness. Procedures Intubation 01/02/2017 A/P Problem List: (1) Sepsis ICD Code: A41.9 Status: Acute (2) Leukocytosis ICD Code: D72.829 Status: Acute (3) Encephalopathy acute ICD Code: G93.40 Status: Acute (4) Non healing left heel wound ICD Code: S91.302A Status: Chronic (5) Rhabdomyolysis ICD Code: M62.82 Status: Resolved (6) BIMAL (acute kidney injury) ICD Code: N17.9 Status: Resolved (7) COPD (chronic obstructive pulmonary disease) ICD Code: J44.9 Status: Chronic (8) Urinary retention ICD Code: R33.9 Status: Resolved (9) Left leg swelling ICD Code: M79.89 Status: Resolved (10) Hyperglycemia due to type 2 diabetes mellitus ICD Code: E11.65 Status: Resolved (11) Alcohol withdrawal ICD Code: F10.239 Status: Resolved (12) Chronic narcotic dependence ICD Code: F11.20 Status: Chronic (13) Delirium ICD Code: R41.0 Status: Resolved (14) Thrombosis of right cephalic vein ICD Code: I80.8 Status: Resolved (15) Thrombocytosis ICD Code: D47.3 Status: Acute (16) Normocytic anemia ICD Code: D64.9 Status: Acute (17) Dysphagia ICD Code: R13.10 Status: Acute (18) Seborrheic dermatitis ICD Code: L21.9 Status: Acute Assessment and Plan Mr. Israel is a 56 year old male who originally came to the ED on 12/31/2016 due to left foot wound. ID felt that left food wound was likely chronic osteomyelitis. Patient became delirious and alcohol withdrawal was suspected. On 01/02/2017, rapid response was called due to unresponsiveness. His O2 sat was 30% and patient was emergently transferred to the ICU and was intubated. ICU work up indicated ARDS. He required broad spectrum anti-microbials as well as pressors. He self extubated himself on 01/14/2017. Patient remained in the ICU up until 01/23/2017. - Metabolic encephalopathy - Alcohol withdrawal - MRI brain on 01/13/2017 was negative for acute intracranial findings/EEG showed moderate to severe encephalopathy - MRI brain 01/20 revealed left frontal/temporal encephalomalacia. - Patient failed dysphagia evaluation and required tube feeding using an NG tube. - Patient was re-evaluated by Speech and currently on Diabetic diet pureed, honey thick liquid. - Acute hypoxic respiratory failure - resolved. - Acute respiratory distress syndrome - resolved. - Septic shock secondary to aspiration pneumonia - aspiration pneumonia - culture grew ESBL positive Klebsiella. - Patient finished a course of Ertapenem. - Patient is currently on room air. - Continue DupNeb PRN - Continue incentive spirometry. - Acute kidney injury - Creatinine improved from 4.86 on admission to 1.13 on . - Diabetes mellitus - Levemir 30 units Q12hrs. Sliding scale insulin. - Hypertension - Continue Clonidine 0.3mg Q8hrs. May need to wean off Clonidine and start first line anti-hypertensives. Full code. SCDs. Consider re-starting Heparin SQ. Problem Qualifiers (1) Sepsis: Qualified Code: A41.9 - Sepsis, due to unspecified organism (2) Leukocytosis: Qualified Code: D72.829 - Leukocytosis, unspecified type (3) Rhabdomyolysis: Qualified Code: M62.82 - Non-traumatic rhabdomyolysis (4) COPD (chronic obstructive pulmonary disease): (5) Hyperglycemia due to type 2 diabetes mellitus: Qualified Code: E11.65 - Type 2 diabetes mellitus with hyperglycemia, without long-term current use of insulin Lux Huizar DO January 29, 2017 11:07
[2017-01-29] MEDS: PANTOPRAZOLE SODIUM 40 MG VIAL IV PUSH SCH (21:50)
[2017-01-29] MEDS: DEXTROSE 50% IN WATER 50 ML VIAL(D50) IV PUSH PRN ×2 (22:07→22:47)
[2017-01-30] VITALS (8 sets, daily range): BP systolic 106–139; BP diastolic 62–79; PULSE 62–82; RESP 18–20; TEMP 97.2–98.2; O2SAT 94–99
[2017-01-30] MEDS: DEXT 5%-NACL 0.9% 1000 ML INJ 1,000 ML IV SCH ×2 (01:43→16:10)
[2017-01-30] MEDS: FREE WATER G-TUBE SCH ×4 (06:00→16:11)
[2017-01-30] MEDS: INSULIN NovoLIN REGULAR SUPPLEMENTAL SCALE SQ SCH ×6 (06:00→20:44)
[2017-01-30] MEDS: cloNIDine HCL 0.3 MG TAB PO SCH ×3 (06:22→20:43)
[2017-01-30] MEDS: ARTIFICIAL TEARS OPTH SOLN 15 ML BTL EACH EYE SCH ×3 (06:22→20:47)
[2017-01-30] MEDS: SODIUM CHLORIDE 0.9% FLUSH 10 ML FLUSH IV FLUSH SCH ×2 (09:00→20:45)
[2017-01-30] MEDS: INSULIN DETEMIR 100 UNITS/ML VIAL SQ SCH ×2 (09:00→20:44)
[2017-01-30] MEDS: SENNOSIDES SYRUP 8.8 MG/5 ML CUP PO SCH ×2 (10:15→20:44)
[2017-01-30] MEDS: MULTIVITAMIN TAB PO SCH (10:15)
[2017-01-30] MEDS: LACTULOSE SYRUP 20 GM/30 ML CUP PO SCH (10:15)
[2017-01-30] MEDS: DOCUSATE SODIUM 100 MG/10 ML UDC PO SCH ×2 (10:16→20:44)
[2017-01-30] MEDS: THIAMINE HCL 100 MG TAB PO SCH (10:17)
[2017-01-30] MEDS: CHLORHEXIDINE 0.12% (ORAL KIT) 15 ML CUP MT SCH ×2 (10:17→20:00)
[2017-01-30] MEDS: ERYTHROMYCIN 2% TOPICAL SCH ×2 (10:18→20:46)
[2017-01-30] MEDS: COLLAGENASE OINT 30 GM TUBE TOPICAL SCH (10:18)
[2017-01-30] MEDS: BETAMETHASONE DIPROPIONATE 0.05% CREAM 15 GM TOPICAL SCH (10:19)
--- NOTE | 2017-01-30 17:29 | HHI.PR ---
Subjective Remarks Follow up for respiratory failure, ARDS, encephalopathy. Patient is doing well. Currently room air. Laconic answers. Denies any acute concerns. Tolerating diet well. Objective Vitals Vital Signs Date Time Temp Pulse Resp B/P Pulse Ox O2 Delivery O2 Flow Rate FiO2 01/30/17 16:00 97.7 81 18 139/75 96 01/30/17 12:00 98.2 82 20 125/73 95 01/30/17 11:15 96 21 01/30/17 08:00 97.3 70 18 119/79 94 01/30/17 07:00 62 01/30/17 04:00 97.2 79 20 106/62 98 01/30/17 00:00 97.8 73 20 119/72 99 01/29/17 22:00 59 01/29/17 20:00 97.6 74 20 99/62 98 01/29/17 17:48 98 21 I/O 01/29/17 01/29/17 01/29/17 01/30/17 01/30/17 01/30/17 07:00 15:00 23:00 07:00 15:00 23:00 Intake Total 1662 ml 0 ml 991 ml 976 ml 0 ml Output Total 525 ml 2000 ml 0 ml 1100 ml Balance 1137 ml -2000 ml 991 ml 976 ml -1100 ml Intake Oral 0 ml 0 ml 240 ml 0 ml IV Total 842 ml 991 ml 736 ml Tube Feeding 420 ml Tube Irrigant 400 ml Output Urine Total 525 ml 2000 ml 0 ml 1100 ml # Bowel Movements 0 0 0 Result Diagram: 01/27/17 0822 01/27/17 0822 Imaging Last Impressions Brain MRI 01/20/17 0000 Signed Impressions: Service Date/Time: Friday, January 20, 2017 11:03 - CONCLUSION: 1. No acute abnormality or significant change is seen. 2. There is a encephalomalacia at the inferior left frontal and temporal lobes. These are good locations for prior posttraumatic injuries. 3. Increased signal/fluid in the mastoid air cells bilaterally. Pk Rivera MD Chest X-Ray 01/18/17 0600 Signed Impressions: Service Date/Time: Wednesday, January 18, 2017 03:35 - CONCLUSION: Continued improvement of the left lung infiltrate. Issa Wills Jr., MD Upper Extremity Ultrasound 01/14/17 0000 Signed Impressions: Service Date/Time: Saturday, January 14, 2017 15:01 - CONCLUSION: Thrombus is seen within the right cephalic vein. Lela Stephens MD Lower Extremity Ultrasound 01/14/17 Signed Impressions: Service Date/Time: Saturday, January 14, 2017 14:44 - CONCLUSION: No evidence of deep venous thrombosis within the lower extremities. Christian Antoine MD Chest CT 01/02/17 1645 Signed Impressions: Service Date/Time: Monday, January 02, 2017 22:10 - CONCLUSION: 1. Acute development of bilateral airspace disease as above with some peripheral sparing , especially at the bases. Findings nonspecific. Patient may be developing ARDS/diffuse alveolar damage. Other considerations include infection and severe hypersensitivity type reaction. 2. Endotracheal tube, nasogastric tube and left central line in satisfactory position. Christopher Lagos MD Head CT 01/02/17 Signed Impressions: Service Date/Time: Monday, January 02, 2017 22:08 - CONCLUSION: Normal examination for a patient of this age. No significant change has occurred. Christopher Lagos MD Lower Extremity MRI 01/01/17 Signed Impressions: Service Date/Time: Sunday, January 01, 2017 20:03 - CONCLUSION: Subcutaneous soft tissue edema distal leg. No evidence of osteomyelitis of the tibia or fibula. Issa Christiansen MD Foot X-Ray 01/01/17 Signed Impressions: Service Date/Time: Sunday, January 01, 2017 04:49 - CONCLUSION: No acute abnormality. Prior left toe amputation. Issa Wills Jr., MD Foot MRI 01/01/17 Signed Impressions: Service Date/Time: Sunday, January 01, 2017 20:03 - CONCLUSION: 1. Prominent subcutaneous soft tissue edema about the foot and ankle. 2. Abnormal signal in the distal metatarsal head of the 4th digit, characterized by T1 and T2 prolongation. Differential considerations include healing fracture and osteomyelitis. 3. Probable Aburto's neuroma in the interspace between the distal 2nd and 3rd metatarsal bones. Issa Christiansen MD Abdomen/Pelvis CT [id number]/31/161938 Signed Impressions: Service Date/Time: Saturday, December 31, 2016 22:46 - CONCLUSION: 1. No acute abnormality to explain the patient's pain. 2. Colonic diverticulosis. No acute inflammation. 3. Suspected small calcified gallstone. The gallbladder is nondilated. 4. 4.2 cm left adrenal gland adenoma. Issa Wills Jr., MD Abdomen X-Ray 12/31/16 0000 Signed Impressions: Service Date/Time: Saturday, December 31, 2016 19:25 - CONCLUSION: Unremarkable study except for stool. Lela Stephens MD Objective Remarks GENERAL: Alert, NAD. SKIN: Warm and dry. HEAD: Normocephalic. EYES: No scleral icterus. No injection or drainage. NECK: Supple, trachea midline. No JVD or lymphadenopathy. CARDIOVASCULAR: Regular rate and rhythm without murmurs, gallops, or rubs. RESPIRATORY: Breath sounds equal bilaterally. No accessory muscle use. GASTROINTESTINAL: Abdomen soft, non-tender, nondistended. MUSCULOSKELETAL: No cyanosis, or edema. BACK: Nontender without obvious deformity. No CVA tenderness. Procedures Intubation 01/02/2017. A/P Problem List: (1) Sepsis ICD Code: A41.9 Status: Acute (2) Leukocytosis ICD Code: D72.829 Status: Acute (3) Encephalopathy acute ICD Code: G93.40 Status: Acute (4) Non healing left heel wound ICD Code: S91.302A Status: Chronic (5) Rhabdomyolysis ICD Code: M62.82 Status: Resolved (6) BIMAL (acute kidney injury) ICD Code: N17.9 Status: Resolved (7) COPD (chronic obstructive pulmonary disease) ICD Code: J44.9 Status: Chronic (8) Urinary retention ICD Code: R33.9 Status: Resolved (9) Left leg swelling ICD Code: M79.89 Status: Resolved (10) Hyperglycemia due to type 2 diabetes mellitus ICD Code: E11.65 Status: Resolved (11) Alcohol withdrawal ICD Code: F10.239 Status: Resolved (12) Chronic narcotic dependence ICD Code: F11.20 Status: Chronic (13) Delirium ICD Code: R41.0 Status: Resolved (14) Thrombosis of right cephalic vein ICD Code: I80.8 Status: Resolved (15) Thrombocytosis ICD Code: D47.3 Status: Acute (16) Normocytic anemia ICD Code: D64.9 Status: Acute (17) Dysphagia ICD Code: R13.10 Status: Acute (18) Seborrheic dermatitis ICD Code: L21.9 Status: Acute Assessment and Plan Mr. Israel is a 56 year old male who originally came to the ED on 12/31/2016 due to left foot wound. ID felt that left food wound was likely chronic osteomyelitis. Patient became delirious and alcohol withdrawal was suspected. On 01/02/2017, rapid response was called due to unresponsiveness. His O2 sat was 30% and patient was emergently transferred to the ICU and was intubated. ICU work up indicated ARDS. He required broad spectrum anti-microbials as well as pressors. He self extubated himself on 01/14/2017. Patient remained in the ICU up until 01/23/2017. - Metabolic encephalopathy - Alcohol withdrawal - MRI brain on 01/13/2017 was negative for acute intracranial findings/EEG showed moderate to severe encephalopathy - MRI brain 01/20 revealed left frontal/temporal encephalomalacia. - Patient failed dysphagia evaluation and required tube feeding using an NG tube. - Patient was re-evaluated by Speech and currently on Diabetic diet pureed, honey thick liquid. - Acute hypoxic respiratory failure - resolved. - Acute respiratory distress syndrome - resolved. - Septic shock secondary to aspiration pneumonia - aspiration pneumonia - culture grew ESBL positive Klebsiella. - Patient finished a course of Ertapenem. - Patient is currently on room air. - Continue DupNeb PRN - Continue incentive spirometry. - Acute kidney injury - Creatinine improved from 4.86 on admission to 1.13 on . - Diabetes mellitus - Levemir 30 units Q12hrs. Sliding scale insulin. - Hypertension - Continue Clonidine 0.3mg Q8hrs. Will start weaning off Clonidine Full code. SCDs. Start Heparin SQ. Problem Qualifiers (1) Sepsis: Qualified Code: A41.9 - Sepsis, due to unspecified organism (2) Leukocytosis: Qualified Code: D72.829 - Leukocytosis, unspecified type (3) Rhabdomyolysis: Qualified Code: M62.82 - Non-traumatic rhabdomyolysis (4) COPD (chronic obstructive pulmonary disease): (5) Hyperglycemia due to type 2 diabetes mellitus: Qualified Code: E11.65 - Type 2 diabetes mellitus with hyperglycemia, without long-term current use of insulin Lux Huizar DO January 30, 2017 17:28
[2017-01-30] MEDS: PANTOPRAZOLE SODIUM 40 MG VIAL IV PUSH SCH (20:47)
[2017-01-31] VITALS: BP 111/64; PULSE 81; RESP 18; TEMP 98; O2SAT 97
[2017-01-31 04:00] VITALS: BP 116/61; PULSE 79; RESP 18; TEMP 98.1; O2SAT 98
[2017-01-31] MEDS: INSULIN NovoLIN REGULAR SUPPLEMENTAL SCALE SQ SCH ×3 (04:00→11:30)
[2017-01-31] MEDS: FREE WATER G-TUBE SCH ×3 (05:47→12:00)
[2017-01-31] MEDS: ARTIFICIAL TEARS OPTH SOLN 15 ML BTL EACH EYE SCH ×2 (05:51→13:31)
[2017-01-31] MEDS: cloNIDine HCL 0.1 MG TAB PO SCH ×2 (05:51→13:31)
[2017-01-31] MEDS: DEXT 5%-NACL 0.9% 1000 ML INJ 1,000 ML IV SCH ×2 (05:53→13:36)
[2017-01-31 07:45] VITALS: BP 125/78; PULSE 75; RESP 18; TEMP 98.4; O2SAT 97
[2017-01-31 07:55] VITALS: PULSE 74
[2017-01-31] MEDS: CHLORHEXIDINE 0.12% (ORAL KIT) 15 ML CUP MT SCH (08:00)
[2017-01-31] MEDS ORDERED: HEPARIN SODIUM - SQ 10,000 UNITS/ML VIAL SQ SCH (09:00)
[2017-01-31] MEDS: LACTULOSE SYRUP 20 GM/30 ML CUP PO SCH (09:32)
[2017-01-31] MEDS: SENNOSIDES SYRUP 8.8 MG/5 ML CUP PO SCH (09:32)
[2017-01-31] MEDS: DOCUSATE SODIUM 100 MG/10 ML UDC PO SCH (09:33)
[2017-01-31] MEDS: MULTIVITAMIN TAB PO SCH (09:33)
[2017-01-31] MEDS: THIAMINE HCL 100 MG TAB PO SCH (09:33)
[2017-01-31] MEDS: ERYTHROMYCIN 2% TOPICAL SCH (09:37)
[2017-01-31] MEDS: COLLAGENASE OINT 30 GM TUBE TOPICAL SCH (09:37)
[2017-01-31] MEDS: SODIUM CHLORIDE 0.9% FLUSH 10 ML FLUSH IV FLUSH SCH (09:38)
[2017-01-31] MEDS: INSULIN DETEMIR 100 UNITS/ML VIAL SQ SCH (09:40)
[2017-01-31] MEDS: BETAMETHASONE DIPROPIONATE 0.05% CREAM 15 GM TOPICAL SCH (11:26)
[2017-01-31 11:47] VITALS: BP 126/79; PULSE 76; RESP 18; TEMP 98; O2SAT 96
[2017-01-31] MEDS ORDERED: VITA100T2 PO (11:57)
[2017-01-31] MEDS ORDERED: FOLI1TAB4 PO (11:57)
[2017-01-31] MEDS ORDERED: ACET325T PO (11:57)
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
[2017-01-31] MEDS ORDERED: BISACODYL 10 MG SUPP RECTAL PRN (12:30)
[2017-01-31] MEDS ORDERED: SOD PHOSPHATE/SOD BIPHOSPHATE (ADULT) ENEMA 133ML RECTAL PRN (12:30)
[2017-01-31] MEDS ORDERED: MORP1CAP64 PO (23:56)
== END 2017-01-31 16:18 | DRG 870 ==
LOC: NEPC 13:16 → NEDA 21:40 → N04A 23:48 → HIMW 01-02 15:50 → N04B 01-25 17:22
PROVIDERS: ADMIT Hospitalist; ATTEND Hospitalist
PROC: 5A1955Z Respiratory Ventilation, Greater than 96 Consecutive Hours (ICD-10-PCS; principal; 2017-01-02)
PROC: 03HY32Z Insertion of Monitoring Device into Upper Artery, Percutaneous Approach (ICD-10-PCS; 2017-01-02)
PROC: 0BH17EZ Insertion of Endotracheal Airway into Trachea, Via Natural or Artificial Opening (ICD-10-PCS; 2017-01-02)
PROC: 02HV33Z Insertion of Infusion Device into Superior Vena Cava, Percutaneous Approach (ICD-10-PCS; 2017-01-02)
PROC: 0HDNXZZ Extraction of Left Foot Skin, External Approach (ICD-10-PCS; 2017-01-07)
DX: A41.9 Sepsis, unspecified organism (principal); N17.0 Acute kidney failure with tubular necrosis; R65.21 Severe sepsis with septic shock; J69.0 Pneumonitis due to inhalation of food and vomit; G93.41 Metabolic encephalopathy; F10.231 Alcohol dependence with withdrawal delirium; J80 Acute respiratory distress syndrome; E87.2 Acidosis; E87.4 Mixed disorder of acid-base balance; I50.30 Unspecified diastolic (congestive) heart failure; I11.0 Hypertensive heart disease with heart failure; M62.82 Rhabdomyolysis; L97.429 Non-pressure chronic ulcer of left heel and midfoot with unspecified severity; E87.1 Hypo-osmolality and hyponatremia; J98.11 Atelectasis; E44.1 Mild protein-calorie malnutrition; L03.116 Cellulitis of left lower limb; I82.611 Acute embolism and thrombosis of superficial veins of right upper extremity; F11.20 Opioid dependence, uncomplicated; N13.9 Obstructive and reflux uropathy, unspecified; J44.9 Chronic obstructive pulmonary disease, unspecified; E11.621 Type 2 diabetes mellitus with foot ulcer; E11.65 Type 2 diabetes mellitus with hyperglycemia; D35.02 Benign neoplasm of left adrenal gland; E87.5 Hyperkalemia; E83.42 Hypomagnesemia; E11.622 Type 2 diabetes mellitus with other skin ulcer; L97.529 Non-pressure chronic ulcer of other part of left foot with unspecified severity; N32.0 Bladder-neck obstruction; G89.29 Other chronic pain; M54.2 Cervicalgia; M54.9 Dorsalgia, unspecified; K59.03 Drug induced constipation; K21.9 Gastro-esophageal reflux disease without esophagitis; K57.30 Diverticulosis of large intestine without perforation or abscess without bleeding; G93.89 Other specified disorders of brain; D64.9 Anemia, unspecified; D75.89 Other specified diseases of blood and blood-forming organs; R13.10 Dysphagia, unspecified; L21.9 Seborrheic dermatitis, unspecified; F17.210 Nicotine dependence, cigarettes, uncomplicated; F32.9 Major depressive disorder, single episode, unspecified; F41.9 Anxiety disorder, unspecified; F43.10 Post-traumatic stress disorder, unspecified; T40.2X5A Adverse effect of other opioids, initial encounter; Z79.84 Long term (current) use of oral hypoglycemic drugs; Z88.5 Allergy status to narcotic agent; Z89.422 Acquired absence of other left toe(s); Z90.81 Acquired absence of spleen
CPT/HCPCS: 31500; 36556; 36600; 51702; 70450; 70551; 70553; 71010; 71250; 73630; 73718; 74000; 74176; 80048; 80053; 80069; 80202; 81001; 82140; 82550; 82552; 82570; 82607; 82805; 82948; 83605; 83690; 83735; 83880; 83930; 83935; 84100; 84145; 84300; 84443; 84484; 85007; 85025; 85027; 85610; 85652; 85730; 86038; 86039; 86140; 86403; 86592; 86850; 86900; 86901; 87040; 87070; 87077; 87086; 87186; 87205; 87641; 87804; 93005; 93306; 93970; 93971; 94002; 94003; 94640; 94664; 95819; 96360; 96361; A9579; C9113; J0360; J0456; J0692; J1120; J1335; J1644; J2060; J2248; J2250; J2543; J2997; J3010; J3370; J3411; J3480; J7030; J7040; J7042; J7050; L3260; P9045; P9047

== ENCOUNTER 2017-01-31 23:23 | Emergency (ER) | payer MEDICARE, OTHER ==
[~2017-01-31] VITALS: Ht 188 cm; Wt 104.5 kg
[~2017-01-31 23:23] MED LIST changes: +ACET325T PO; +ASPI1TAB69 PO; -ASPI81TA82 PO; -COLY4000S PO; +FOLI1TAB4 PO; +JANU50TA8 PO; -LISI-357 PO; +LISI-519 PO; +MIRA33504 PO; +MORP1CAP64 PO; +OXYC30TA PO; -PREG25 PO; +PREG300 PO; -SERO400T PO; +VITA100T2 PO; -Z.0.WALKERFRONT
[2017-01-31 23:32] VITALS: BP 137/82; PULSE 117; RESP 16; TEMP 98.6; O2SAT 97
[2017-01-31] MEDS ORDERED: MORP1CAP64 PO (23:56)
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
[2017-02-01 00:26] VITALS: PULSE 97
[2017-02-01 12:00] VITALS: BP 135/85; PULSE 98; RESP 18; TEMP 98.6; O2SAT 97
[2017-02-01 16:22] VITALS: BP 138/75; TEMP 98.6
== END 2017-02-01 17:15 ==
LOC: NEPE 23:23 → NEPD 02-01 17:15
DX: F10.20 Alcohol dependence, uncomplicated (principal)
CPT/HCPCS: 99283

== ENCOUNTER 2017-02-24 18:03 | Inpatient (IN) | payer MEDICARE, OTHER ==
[~2017-02-24] VITALS: Ht 188 cm; Wt 96.9 kg
[~2017-02-24 18:03] MED LIST changes: -GLYB5TAB3 PO; -MORP1CAP64 PO; -OXYC30TA PO
[2017-02-24 18:27] VITALS: BP 136/90; PULSE 104; RESP 22; O2SAT 96
[2017-02-24] MEDS ORDERED: SODIUM CHLORIDE 0.9% FLUSH 5 ML FLUSH IV FLUSH PRN (18:30)
[2017-02-24] MEDS ORDERED: THIAMINE INJ 100 MG in SODIUM CHLORIDE 0.9% INJ 100 ML IV ONE (18:30)
[2017-02-24] MEDS ORDERED: SODIUM CHLOR 0.9% 1000 ML INJ 1,000 ML IV ONE ×2 (18:30→20:00)
[2017-02-24 18:35] VITALS: O2SAT 98
[2017-02-24] MEDS ORDERED: QUET1TAB11 PO (18:38)
[2017-02-24] MEDS ORDERED: GLIM4TAB PO (18:38)
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
[2017-02-24 18:42] LABS: BLOOD GAS BASE EXCESS -14.5 mmol/L (-2-2); BLOOD GAS CARBOXYHEMOGLOBIN 2.4 % (0-4); BLOOD GAS HCO3 10 mmol/L (22-26); BLOOD GAS METHEMOGLOBIN 0.9 % (0-2); BLOOD GAS O2 HGB SATURATION 94 % (90-100); BLOOD GAS OXYGEN CONTENT 13.8 Vol % (12.0-20.0); BLOOD GAS PCO2 20 mmHg (38-42); BLOOD GAS PO2 92 mmHG (61-120); BLOOD GAS TOTAL HGB 10.4 G/DL (12.0-16.0); CRITICAL VALUE YES; DRAW SITE RT RADIAL; FIO2 21 %; NUMBER OF ARTERIAL PUNCTURES 1; OXYGEN DEVICE ROOM AIR; STAT YES; TEMP CORR TO 98.6; ULNAR PULSE PRESENT
[2017-02-24 18:51] LABS: AUTOMATED NEUTROPHIL # 3.8 TH/MM3 (1.8-7.7); BASOPHIL % 0.3 % (0.0-2.0); EOSINOPHIL % 0.4 % (0.0-4.0); LYMPHOCYTE # 0.9 TH/MM3 (1.0-4.8); MEAN CELL VOLUME 103.6 FL (80.0-100.0); MEAN CORPUSCULAR HEMOGLOBIN 31.8 PG (27.0-34.0); MEAN CORPUSCULAR HGB CONC 30.6 % (32.0-36.0); MONO % 11.6 % (0.0-8.0); NEUT % 70.7 % (16.0-70.0); PLATELET COUNT 276 TH/MM3 (150-450); RED BLOOD COUNT 1.41 MIL/MM3 (4.50-5.90); RED CELL DISTRIBUTION WIDTH 16.2 % (11.6-17.2); WHITE BLOOD COUNT 5.4 TH/MM3 (4.0-11.0)
[2017-02-24 18:58] LABS: HEMO FLAGS AUTO DIFF
[2017-02-24 19:01] LABS: HEMATOCRIT 14.7 % (39.0-51.0)
[2017-02-24 19:02] LABS: APTT (PATIENT) 25.2 SEC (24.3-30.1); INTERNATIONAL NORMALIZED RATIO 0.9 RATIO; PROTHROMBIN TIME - PATIENT 10.4 SEC (9.8-11.6)
--- NOTE | 2017-02-24 19:07 | PD ---
Physical Exam Date Seen by Provider: February 24, 2017 Time Seen by Provider: 19:01 Ernestine vargas is a 56-year-old male who was initially evaluated by the previous physician, Dr. Little. Please refer to the initial history, physical, diagnostic evaluation, and treatment modality plan. The patient was signed out at 7 PM the laboratory evaluation and CT of the brain pending. Data Data Last Documented VS Vital Signs Date Time Temp Pulse Resp B/P Pulse Ox O2 Delivery O2 Flow Rate FiO2 02/24/17 19:16 98.7 111 18 143/84 98 02/24/17 18:35 Room Air Orders Electrocardiogram (02/24/17 18:19) Ammonia (02/24/17 18:19) Complete Blood Count With Diff (02/24/17 18:19) Comprehensive Metabolic Panel (02/24/17 18:19) Prothrombin Time / Inr (Pt) (02/24/17 18:19) Act Partial Throm Time (Ptt) (02/24/17 18:19) Troponin I (02/24/17 18:19) Arterial Blood Gas (Abg) (02/24/17 18:19) Ct Brain W/O Iv Contrast(Rout) (02/24/17 18:19) Blood Glucose (02/24/17 18:19) Ecg Monitoring (02/24/17 18:19) Iv Access Insert/Monitor (02/24/17 18:19) Oximetry (02/24/17 18:19) Sodium Chloride 0.9% Flush (Ns Flush) (02/24/17 18:30) Lactic Acid (02/24/17 18:19) Beta Hydroxybutyrate (Acetone) (02/24/17 18:19) Alcohol (Ethanol) (02/24/17 18:19) Creatine Kinase (Cpk) (02/24/17 18:19) Cath For Specimen (02/24/17 18:19) Urinalysis - C+S If Indicated (02/24/17 18:19) Sodium Chlor 0.9% 1000 Ml Inj (Ns 1000 M (02/24/17 18:30) Thiamine Inj (Thiamine Inj) (02/24/17 18:30) Salicylates (Aspirin) (02/24/17 18:52) Tylenol (Acetaminophen) (02/24/17 18:52) Drug Screen, Random Urine (02/24/17 18:52) Red Blood Cells (Rbc) (02/24/17 19:07) Blood Product Administration .UPON TRANSFUSION (02/24/17 19:07) Sodium Chlor 0.9% 250 Ml Inj (Ns 250 Ml (02/24/17 19:15) Diphenhydramine Inj (Benadryl Inj) (02/24/17 19:15) Acetaminophen (Tylenol) (02/24/17 19:15) Iron/Tibc Profile (02/24/17 19:07) Type And Screen (02/24/17 19:07) CKMB (02/24/17 18:30) CKMB% (02/24/17 18:30) Complete Blood Count With Diff (02/24/17 19:38) Sodium Chlor 0.9% 1000 Ml Inj (Ns 1000 M (02/24/17 20:00) Labs Laboratory Tests Test 02/24/17 02/24/17 02/24/17 02/24/17 18:30 18:33 19:10 19:38 Prothrombin Time 10.4 SEC Prothromb Time International 0.9 RATIO Ratio Activated Partial 25.2 SEC Thromboplast Time Sodium Level 139 MEQ/L Potassium Level 5.0 MEQ/L Chloride Level 108 MEQ/L Carbon Dioxide Level 9.9 MEQ/L Anion Gap 21 MEQ/L Blood Urea Nitrogen 28 MG/DL Creatinine 1.11 MG/DL Estimat Glomerular Filtration 69 ML/MIN Rate Random Glucose 117 MG/DL Lactic Acid Level 1.2 mmol/L Calcium Level 8.9 MG/DL Total Bilirubin 0.6 MG/DL Aspartate Amino Transf 92 U/L (AST/SGOT) Alanine Aminotransferase 42 U/L (ALT/SGPT) Alkaline Phosphatase 141 U/L Ammonia 18 MCMOL/L Total Creatine Kinase 1816 U/L Creatine Kinase MB 7.3 NG/ML Creatine Kinase MB % 0.4 % Troponin I LESS THAN 0.02 NG/ML Total Protein 8.1 GM/DL Albumin 2.9 GM/DL Ethyl Alcohol Level LESS THAN 3 MG/DL B-Hydroxybutyrate 8.67 MMOL/L Blood Gas Puncture Site RT RADIAL Blood Gas Patient Temperature 98.6 Blood Gas HCO3 10 mmol/L Blood Gas Base Excess -14.5 mmol/L Blood Gas Oxygen Saturation 94 % Arterial Blood pH 7.33 Arterial Blood Partial 20 mmHg Pressure CO2 Arterial Blood Partial 92 mmHG Pressure O2 Arterial Blood Oxygen Content 13.8 Vol % Arterial Blood 2.4 % Carboxyhemoglobin Arterial Blood Methemoglobin 0.9 % Blood Gas Hemoglobin 10.4 G/DL Oxygen Delivery Device ROOM AIR Blood Gas Inspired Oxygen 21 % Urine Color YELLOW Urine Turbidity CLEAR Urine pH 5.5 Urine Specific Chemult 1.017 Urine Protein 30 mg/dL Urine Glucose (UA) TRACE mg/dL Urine Ketones 150 mg/dL Urine Occult Blood NEG Urine Nitrite NEG Urine Bilirubin NEG Urine Urobilinogen 2.0 MG/DL Urine Leukocyte Esterase NEG Urine RBC LESS THAN 1 /hpf Urine WBC 1 /hpf Urine Hyaline Casts 1 /lpf Microscopic Urinalysis Comment CATH-CULT NOT IND Iron Level 29 MCG/DL Total Iron Binding Capacity 225 MCG/DL Percent Iron Saturation 12.9 % Salicylates Level 4.1 MG/DL Urine Opiates Screen POS Acetaminophen Level LESS THAN 2.0 MCG/ML Urine Barbiturates Screen NEG Urine Amphetamines Screen NEG Urine Benzodiazepines Screen NEG Urine Cocaine Screen NEG Urine Cannabinoids Screen POS Blood Type O POSITIVE Antibody Screen NEGATIVE Crossmatch Leukocyte-Reduced Red Blood Cells Blood Bank Comment White Blood Count 12.4 TH/MM3 Red Blood Count 3.05 MIL/MM3 Hemoglobin 9.8 GM/DL Hematocrit 29.6 % Mean Corpuscular Volume 97.0 FL Mean Corpuscular Hemoglobin 32.1 PG Mean Corpuscular Hemoglobin 33.1 % Concent Red Cell Distribution Width 15.2 % Platelet Count 629 TH/MM3 Mean Platelet Volume 8.7 FL Neutrophils (%) (Auto) 70.7 % Lymphocytes (%) (Auto) 15.3 % Monocytes (%) (Auto) 13.0 % Eosinophils (%) (Auto) 0.4 % Basophils (%) (Auto) 0.6 % Neutrophils # (Auto) 8.8 TH/MM3 Lymphocytes # (Auto) 1.9 TH/MM3 Monocytes # (Auto) 1.6 TH/MM3 Eosinophils # (Auto) 0.1 TH/MM3 Basophils # (Auto) 0.1 TH/MM3 CBC Comment DIFF FINAL Differential Comment Hematology Comments [facility] Medical Record Reviewed: Yes Supervised Visit with KENDRICK: No Interpretation(s) Laboratory Tests Test 02/24/17 02/24/17 02/24/17 02/24/17 18:30 18:33 19:10 19:38 Prothrombin Time 10.4 SEC Prothromb Time International 0.9 RATIO Ratio Activated Partial 25.2 SEC Thromboplast Time Sodium Level 139 MEQ/L Potassium Level 5.0 MEQ/L Chloride Level 108 MEQ/L Carbon Dioxide Level 9.9 MEQ/L Anion Gap 21 MEQ/L Blood Urea Nitrogen 28 MG/DL Creatinine 1.11 MG/DL Estimat Glomerular Filtration 69 ML/MIN Rate Random Glucose 117 MG/DL Lactic Acid Level 1.2 mmol/L Calcium Level 8.9 MG/DL Total Bilirubin 0.6 MG/DL Aspartate Amino Transf 92 U/L (AST/SGOT) Alanine Aminotransferase 42 U/L (ALT/SGPT) Alkaline Phosphatase 141 U/L Ammonia 18 MCMOL/L Total Creatine Kinase 1816 U/L Troponin I LESS THAN 0.02 NG/ML Total Protein 8.1 GM/DL Albumin 2.9 GM/DL Ethyl Alcohol Level LESS THAN 3 MG/DL B-Hydroxybutyrate 8.67 MMOL/L Blood Gas Puncture Site RT RADIAL Blood Gas Patient Temperature 98.6 Blood Gas HCO3 10 mmol/L Blood Gas Base Excess -14.5 mmol/L Blood Gas Oxygen Saturation 94 % Arterial Blood pH 7.33 Arterial Blood Partial 20 mmHg Pressure CO2 Arterial Blood Partial 92 mmHG Pressure O2 Arterial Blood Oxygen Content 13.8 Vol % Arterial Blood 2.4 % Carboxyhemoglobin Arterial Blood Methemoglobin 0.9 % Blood Gas Hemoglobin 10.4 G/DL Oxygen Delivery Device ROOM AIR Blood Gas Inspired Oxygen 21 % Urine Color YELLOW Urine Turbidity CLEAR Urine pH 5.5 Urine Specific Chemult 1.017 Urine Protein 30 mg/dL Urine Glucose (UA) TRACE mg/dL Urine Ketones 150 mg/dL Urine Occult Blood NEG Urine Nitrite NEG Urine Bilirubin NEG Urine Urobilinogen 2.0 MG/DL Urine Leukocyte Esterase NEG Urine RBC LESS THAN 1 /hpf Urine WBC 1 /hpf Urine Hyaline Casts 1 /lpf Microscopic Urinalysis Comment CATH-CULT NOT IND Iron Level 29 MCG/DL Total Iron Binding Capacity 225 MCG/DL Percent Iron Saturation 12.9 % Salicylates Level 4.1 MG/DL Urine Opiates Screen POS Urine Barbiturates Screen NEG Urine Amphetamines Screen NEG Urine Benzodiazepines Screen NEG Urine Cocaine Screen NEG Urine Cannabinoids Screen POS Blood Type O POSITIVE Antibody Screen NEGATIVE Crossmatch Leukocyte-Reduced Red Blood Cells Blood Bank Comment White Blood Count 12.4 TH/MM3 Red Blood Count 3.05 MIL/MM3 Hemoglobin 9.8 GM/DL Hematocrit 29.6 % Mean Corpuscular Volume 97.0 FL Mean Corpuscular Hemoglobin 32.1 PG Mean Corpuscular Hemoglobin 33.1 % Concent Red Cell Distribution Width 15.2 % Platelet Count 629 TH/MM3 Mean Platelet Volume 8.7 FL Neutrophils (%) (Auto) 70.7 % Lymphocytes (%) (Auto) 15.3 % Monocytes (%) (Auto) 13.0 % Eosinophils (%) (Auto) 0.4 % Basophils (%) (Auto) 0.6 % Neutrophils # (Auto) 8.8 TH/MM3 Lymphocytes # (Auto) 1.9 TH/MM3 Monocytes # (Auto) 1.6 TH/MM3 Eosinophils # (Auto) 0.1 TH/MM3 Basophils # (Auto) 0.1 TH/MM3 CBC Comment DIFF FINAL Differential Comment Hematology Comments Last Impressions Head CT 02/24/17 1819 Signed Impressions: Service Date/Time: Friday, February 24, 2017 18:54 - CONCLUSION: 1. Old left frontal infarct. 2. No acute infarct, acute hemorrhage, mass effect or extra-axial fluid collections. Christian Antoine MD Differential Diagnosis Differential diagnosis includes encephalitis, meningitis, delirium, alcohol intoxication, symptomatic anemia, syncope, alcohol-related seizure, hyponatremia , UTI, pneumonia, subdural hemorrhage. Narrative Course Patient was initially evaluated by the previous physician, Dr. Angeles. Please refer to the initial history, physical, diagnostic evaluation, and treatment modality plan. The patient was signed out at 7 PM laboratory evaluation and CT of the brain pending. The patient was evaluated at 7:05 PM, he was awake, alert , oriented to person, place, month, and year. The patient's hemoglobin was noted to be 4.5, rectal exam was performed, there is no gross blood, however, it was guaiac positive. He does have a history of previous transfusion, denies any recent rectal bleeding or dark colored stools. The patient's hemoglobin was 4.5, however, lab called back and thought it may be contaminated, therefore , repeat hemoglobin will be evaluated prior to transfusion. The patient was administered Protonix 40 mg intravenously. Repeat hemoglobin was 9.8, therefore , transfusion of RBCs was canceled. Patient's anion gap is 21, beta hydroxy is greater than 8, glucose is only 117, consistent with dehydration. Patient's CPK is also elevated greater than 1800 secondary to rhabdomyolysis. The patient will need admission and IV hydration. The on-call medical service was paged for admission. HemaPrompt Test Point of Care Internal Pos. & Neg. Controls: Passed Fecal Specimen Occult Blood: Positive Physician Communication Physician Communication The on-call medical service was paged for admission. I discussed the patient with Dr. Hollis who agrees with admission. Diagnosis Primary Impression: Rhabdomyolysis Qualified Code: M62.82 - Non-traumatic rhabdomyolysis Additional Impression: Dehydration Admitting Information Admitting Physician Requests: Admit Condition: Stable To Mcmullen MD February 24, 2017 19:07
--- NOTE | 2017-02-24 19:13 | RADRPT ---
EXAM DATE/TIME: 02/24/2017 18:54 [facility] COMPARISON: CT BRAIN W/O CONTRAST, January 02, 2017, 22:08. INDICATIONS : Altered mental status. RADIATION DOSE: 56.35 CTDIvol (mGy) MEDICAL HISTORY : Hepatitis C. Cardiovascular disease Deep venous thrombosis.Congestive heart failure. Diabetes. Collap sed lung. Hypertension. SURGICAL HISTORY : Splenectomy. ENCOUNTER: Initial ACUITY: 1 day PAIN SCALE: 0/10 LOCATION: cranial TECHNIQUE: Multiple contiguous axial images were obtained of the head. Using automated exposure control and adj ustment of the mA and/or kV according to patient size, radiation dose was kept as low as reasonably a chievable to obtain optimal diagnostic quality images. FINDINGS: CEREBRUM: There is an old left frontal infarct. The ventricles are normal for age. No evidence of midline shif t, mass lesion, hemorrhage or acute infarction. No extra-axial fluid collections are seen. POSTERIOR FOSSA: The cerebellum and brainstem are intact. The 4th ventricle is midline. The cerebellopontine angle i s unremarkable. EXTRACRANIAL: The visualized portion of the orbits is intact. SKULL: The calvaria is intact. No evidence of skull fracture. CONCLUSION: 1. Old left frontal infarct. 2. No acute infarct, acute hemorrhage, mass effect or extra-axial fluid collections. Christian Antoine MD on February 24, 2017 at 19:09 Board Certified Radiologist. This report was verified electronically.
[2017-02-24] MEDS ORDERED: SODIUM CHLOR 0.9% 250 ML INJ 250 ML IV ONE (19:15)
[2017-02-24] MEDS ORDERED: ACETAMINOPHEN 325 MG TAB PO PRN (19:15)
[2017-02-24] MEDS ORDERED: diphenhydrAMINE HCL 50 MG/ML VIAL IV PRN (19:15)
[2017-02-24 19:16] VITALS: BP 143/84; PULSE 111; RESP 18; TEMP 98.7; O2SAT 98
[2017-02-24 19:25] LABS: BLOOD, URINE NEG (NEG); GLUCOSE,URINE TRACE mg/dL (NEG); HYALINE CAST, URINE 1 /lpf (RARE); KETONE, URINE 150 mg/dL (NEG); NITRITE,URINE NEG (NEG); PH, URINE 5.5 (5.0-8.5); URINE COLOR YELLOW (YELLW/STRAW)
[2017-02-24 19:27] LABS: COMMENT (UR) CATH-CULT NOT IND; CULTURE IF INDICATED CATH CULTURE NOT IND
[2017-02-24 19:32] LABS: AMPHETAMINE, URINE NEG (NEG); BARBITURATES, URINE NEG (NEG); COCAINE, URINE NEG (NEG)
[2017-02-24 19:51] LABS: ALKALINE PHOSPHATASE 141 U/L (45-117); ALT (GPT) 42 U/L (12-78); ANION GAP 21 MEQ/L (5-15); AST (GOT) 92 U/L (15-37); BETA-HYDROXYBUTYRATE 8.67 MMOL/L (0.00-0.39); BICARBONATE 9.9 MEQ/L (21.0-32.0); BLOOD UREA NITROGEN 28 MG/DL (7-18); CHLORIDE 108 MEQ/L (98-107); CREATINE KINASE 1816 U/L (39-308); GLOMERULAR FILTRATION RATE 69 ML/MIN (>89); SODIUM (NA) 139 MEQ/L (136-145); TOTAL BILIRUBIN ADULT 0.6 MG/DL (0.2-1.0)
[2017-02-24 19:55] LABS: TRANSFERRIN IRON PROFILE 161 MG/DL (200-360)
[2017-02-24 19:56] LABS: AUTOMATED NEUTROPHIL # 8.8 TH/MM3 (1.8-7.7); BASOPHIL # 0.1 TH/MM3 (0-0.2); BASOPHIL % 0.6 % (0.0-2.0); EOSINOPHIL # 0.1 TH/MM3 (0-0.4); EOSINOPHIL % 0.4 % (0.0-4.0); HEMATOCRIT 29.6 % (39.0-51.0); HEMO FLAGS DIFF FINAL; LYMPH % 15.3 % (9.0-44.0); LYMPHOCYTE # 1.9 TH/MM3 (1.0-4.8); MEAN CORPUSCULAR HEMOGLOBIN 32.1 PG (27.0-34.0); MEAN CORPUSCULAR HGB CONC 33.1 % (32.0-36.0); NEUT % 70.7 % (16.0-70.0); PLATELET COUNT 629 TH/MM3 (150-450); RED BLOOD COUNT 3.05 MIL/MM3 (4.50-5.90); RED CELL DISTRIBUTION WIDTH 15.2 % (11.6-17.2); WHITE BLOOD COUNT 12.4 TH/MM3 (4.0-11.0)
[2017-02-24 20:06] LABS: CKMB 7.3 NG/ML (0.5-3.6)
[2017-02-24 20:26] LABS: SCAN/DIFF AUTO DIFF CONFIRMED
--- NOTE | 2017-02-24 20:27 | HHI.HP ---
[facility] Service [facility] Primary Care Physician Unknown Admission Diagnosis rhabdomyolysis, dehydration Diagnoses: (1) Encephalopathy Diagnosis: Principal (2) Alcohol abuse Diagnosis: Principal (3) Rhabdomyolysis Diagnosis: Principal (4) Dehydration Diagnosis: Principal (5) Leukocytosis Diagnosis: Principal (6) Anemia Diagnosis: Principal (7) COPD (chronic obstructive pulmonary disease) Diagnosis: Principal (8) CHF (congestive heart failure) Diagnosis: Principal (9) DM (diabetes mellitus) Diagnosis: Principal (10) Tobacco abuse Diagnosis: Principal Travel History International Travel<30 Days: No Contact w/Intl Traveler <30 Da: No Traveled to Known Affected Are: No History of Present Illness This is a 56-year-old male with a PMH of Anxiety, Depression, COPD, HTN, CHF ( Echo 01/09/17 w/ EF 55-60%, Grade 2 Diastolic Dysfunction), Alcohol Abuse and Tobacco Abuse who was brought to the ER by EMS w/ AMS after being found down in apartment by Landlord. Per EMS, pt found lying on the floor between bed and night stand, covered in urine and feces, estimated time down 2-3 days. Pt states he works at [employer] and believes he was found down "at the club". Unable to get more information, except notes he hasn't had a drink in 2 days. On arrival, BP 136/90, HR 104, O2 sat 96% on RA, Afebrile. WBC 12.4. Initial Hgb 4.5, however repeat Hgb 9.8. AG 21. BUN 28. GFR 69. Lactic Acid normal at 1.2. LFTs mildly elevated. CPK 1816. Troponin negative. Ammonia 18. INR 0.9. UA negative. Urine Drug Screen positive for Opiates and Marijuana. Beta hydroxy elevated. 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 Recent admit 12/31-01/31/17 w/ prolonged hospitalization secondary to Chronic Left Foot Osteomyelitis, Sepsis, Acute Respiratory Failure/ARDS requiring Intubation, Aspiration PNA s/p IV Abx and BIMAL. D/c'd to [facility], recently d/c'd home from Rehab per report. Review of Systems Except as stated in HPI: all other systems reviewed are Neg ROS: 14 point review of systems otherwise negative. Past Family Social History Past Medical History PMH: Anxiety, Depression, COPD, HTN, CHF (Echo 01/09/17 w/ EF 55-60%, Grade 2 Diastolic Dysfunction), Alcohol Abuse and Tobacco Abuse Past Surgical History PAST SURGICAL HISTORY: Splenectomy, RLE Brought the Mandible Surgery Allergies: Coded Allergies: Toradol (Verified Allergy, Intermediate, Headache, 01/31/17) *MDRO Multi-Drug Resistant Organism (Verified Adverse Reaction, Unknown, ) ESBL K. pneumoniae (sputum) - 01/14/17 Family History PAST FAMILY HISTORY: Reviewed. No h/o DM or CAD Social History PAST SOCIAL HISTORY: 2 Vodka drinks daily per report. Smokes 1/2-1ppd. + Marijuana. Physical Exam Vital Signs Vital Signs Date Time Temp Pulse Resp B/P Pulse Ox O2 Delivery O2 Flow Rate FiO2 02/24/17 19:16 98.7 111 18 143/84 98 02/24/17 18:35 98 Room Air 02/24/17 18:27 104 22 136/90 96 Physical Exam PE: GENERAL: Middle-aged white male in no acute distress. Speech difficult to understand. HEENT: PERRLA, EOMI. No scleral icterus or conjunctival pallor. No lid lag or facial droop. Significantly dry mucous membranes, dry/cracked lips. CARDIOVASCULAR: Regular rate and rhythm. No obvious murmurs to auscultation. No chest tenderness to palpation. RESPIRATORY: No obvious rhonchi or wheezing. Clear to auscultation. Breath sounds equal bilaterally. GASTROINTESTINAL: Abdomen soft, non-tender, nondistended. BS normal. MUSCULOSKELETAL: Extremities without clubbing, cyanosis, or edema. No obvious deformities. NEUROLOGICAL: Awake, alert, oriented to person, place however confused at times. No focal neurologic deficits. Moving both upper and lower extremities spontaneously. Laboratory Laboratory Tests Test 02/24/17 02/24/17 02/24/17 02/24/17 18:30 18:33 19:10 19:38 Prothrombin Time 10.4 Prothromb Time International 0.9 Ratio Activated Partial 25.2 Thromboplast Time Sodium Level 139 Potassium Level 5.0 Chloride Level 108 Carbon Dioxide Level 9.9 Anion Gap 21 Blood Urea Nitrogen 28 Creatinine 1.11 Estimat Glomerular Filtration 69 Rate Random Glucose 117 Lactic Acid Level 1.2 Calcium Level 8.9 Total Bilirubin 0.6 Aspartate Amino Transf 92 (AST/SGOT) Alanine Aminotransferase 42 (ALT/SGPT) Alkaline Phosphatase 141 Ammonia 18 Total Creatine Kinase 1816 Creatine Kinase MB 7.3 Creatine Kinase MB % 0.4 Troponin I LESS THAN 0.02 Total Protein 8.1 Albumin 2.9 Ethyl Alcohol Level LESS THAN 3 B-Hydroxybutyrate 8.67 Blood Gas Puncture Site RT RADIAL Blood Gas Patient Temperature 98.6 Blood Gas HCO3 10 Blood Gas Base Excess -14.5 Blood Gas Oxygen Saturation 94 Arterial Blood pH 7.33 Arterial Blood Partial 20 Pressure CO2 Arterial Blood Partial 92 Pressure O2 Arterial Blood Oxygen Content 13.8 Arterial Blood 2.4 Carboxyhemoglobin Arterial Blood Methemoglobin 0.9 Blood Gas Hemoglobin 10.4 Oxygen Delivery Device ROOM AIR Blood Gas Inspired Oxygen 21 Urine Color YELLOW Urine Turbidity CLEAR Urine pH 5.5 Urine Specific [place] 1.017 Urine Protein 30 Urine Glucose (UA) TRACE Urine Ketones 150 Urine Occult Blood NEG Urine Nitrite NEG Urine Bilirubin NEG Urine Urobilinogen 2.0 Urine Leukocyte Esterase NEG Urine RBC LESS THAN 1 Urine WBC 1 Urine Hyaline Casts 1 Microscopic Urinalysis Comment CATH-CULT NOT IND Iron Level 29 Total Iron Binding Capacity 225 Percent Iron Saturation 12.9 Salicylates Level 4.1 Urine Opiates Screen POS Urine Barbiturates Screen NEG Urine Amphetamines Screen NEG Urine Benzodiazepines Screen NEG Urine Cocaine Screen NEG Urine Cannabinoids Screen POS Blood Type O POSITIVE Antibody Screen NEGATIVE Crossmatch Leukocyte-Reduced Red Blood Cells Blood Bank Comment White Blood Count 12.4 Red Blood Count 3.05 Hemoglobin 9.8 Hematocrit 29.6 Mean Corpuscular Volume 97.0 Mean Corpuscular Hemoglobin 32.1 Mean Corpuscular Hemoglobin 33.1 Concent Red Cell Distribution Width 15.2 Platelet Count 629 Mean Platelet Volume 8.7 Neutrophils (%) (Auto) 70.7 Lymphocytes (%) (Auto) 15.3 Monocytes (%) (Auto) 13.0 Eosinophils (%) (Auto) 0.4 Basophils (%) (Auto) 0.6 Neutrophils # (Auto) 8.8 Lymphocytes # (Auto) 1.9 Monocytes # (Auto) 1.6 Eosinophils # (Auto) 0.1 Basophils # (Auto) 0.1 CBC Comment DIFF FINAL Differential Comment Hematology Comments Result Diagram: 02/24/17 1938 02/24/17 1830 Assessment and Plan Problem List: (1) Encephalopathy ICD Code: G93.40 Status: Acute (2) Alcohol abuse ICD Code: F10.10 Status: Acute (3) Rhabdomyolysis ICD Code: M62.82 Status: Resolved (4) Dehydration ICD Code: E86.0 Status: Acute (5) Anemia ICD Code: D64.9 Status: Acute (6) COPD (chronic obstructive pulmonary disease) ICD Code: J44.9 Status: Chronic (7) CHF (congestive heart failure) ICD Code: I50.9 Status: Acute (8) DM (diabetes mellitus) ICD Code: E11.9 Status: Chronic (9) Tobacco abuse ICD Code: Z72.0 Status: Acute Assessment and Plan A/P: 1. Encephalopathy: Acute. Found down by Landlord in his apartment, estimated down for 2-3 days, unclear etiology. H/o Alcohol Abuse, last drink 2 days ago, ?Alcohol Withdrawal. CT Head w/ old infarct, no acute ischemia noted. No signs of sepsis/infection. Significant dehydration on exam. Recent admit 12/31- w/ Encephalopathy likely secondary to Alcohol Withdrawal, MRI Brain negative, MRI Brain 01/20/17 left frontal/temporal encephalomalacia, EEG moderate to severe encephalopathy. Currently awake, oriented to person/place, however confused at times, speech difficult to understand. Speech Consult for eval/tx. 2. Alcohol Abuse: Per report, drinks 2 Vodka/day, last drink approx 2 days ago , no tremors. Seizure Precautions, CIWA, MVT/Thiamine/Folate replacement. 3. Rhabdomyolysis: CPK 1816, down x2 days per report. IVF for hydration. Check serial CPK for trend. U/a negative. 4. Dehydration: Significant dehydration on exam, GFR 69, CPK elevated. IVF for hydration. H/o CHF, however no acute fluid overload at this time. 5. CHF: Chronic. Diastolic. Echo 01/09/17 w/ EF 55-60%, Grade 2 Diastolic Dysfunction. No evidence of fluid overload. Will monitor. 6. Anemia: Hgb 4.5, repeat labs w/ Hgb 9.8. Will monitor. No need for transfusion at this time. 7. COPD: Chronic Respiratory Failure. Stable. DuoNeb prn. 8. DM: Hold Metformin/Janumet in light of significant dehydration and decreased PO intake x2 days. Sliding scale w/ Accu-Cheks. 9. Tobacco Abuse: Ativan/NicoDerm prn if needed. 10. DVT Prophylaxis: SCD/Teds. 11. Social work for d/c planning as needed. 12. Case discussed w/ ER physician at length. Physician Certification 2 Midnight Certification Type: Admission for Inpatient Services Order for Inpatient Services The services are ordered in accordance with Medicare regulations or non- Medicare payer requirements, as applicable. In the case of services not specified as inpatient-only, they are appropriately provided as inpatient services in accordance with the 2-midnight benchmark. Estimated LOS (days): 2 days is the estimated time the patient will need to remain in the hospital, assuming treatment plan goals are met and no additional complications. Post-Hospital Plan: Not yet determined Problem Qualifiers (1) Rhabdomyolysis: Qualified Code: M62.82 - Non-traumatic rhabdomyolysis Marge Hollis MD February 24, 2017 20:27
[2017-02-24] MEDS ORDERED: MORPHINE SULFATE 4 MG/ML INJ IV PRN (20:30)
[2017-02-24] MEDS ORDERED: HALOPERIDOL LACTATE 5 MG/ML AMP IM PRN (20:30)
[2017-02-24] MEDS ORDERED: LACTULOSE SYRUP 20 GM/30 ML CUP PO PRN (20:30)
[2017-02-24] MEDS ORDERED: SENNOSIDES 8.6 MG TAB PO PRN (20:30)
[2017-02-24] MEDS ORDERED: SODIUM CHLORIDE 0.9% FLUSH 10 ML FLUSH IV FLUSH PRN (20:30)
[2017-02-24] MEDS ORDERED: LORazepam 2 MG TAB PO PRN (20:30)
[2017-02-24] MEDS ORDERED: MAGNESIUM HYDROXIDE SUSP 30 ML CUP PO PRN (20:30)
[2017-02-24] MEDS ORDERED: BISACODYL 10 MG SUPP RECTAL PRN (20:30)
[2017-02-24] MEDS ORDERED: LORazepam 1 MG TAB PO PRN (20:30)
[2017-02-24] MEDS ORDERED: FLUMAZENIL 0.5 MG/5 ML VIAL IV PUSH PRN (20:30)
[2017-02-24] MEDS ORDERED: LORazepam 2 MG/ML VIAL IV PUSH PRN ×4 (20:30)
[2017-02-24] MEDS ORDERED: RESP: ALBUTEROL 2.5 MG/IPRATROPIUM 0.5 MG NEB (PRN) NEB (20:45)
[2017-02-24] MEDS ORDERED: GLUCAGON 1 MG/ML VIAL OTHER PRN (20:45)
[2017-02-24] MEDS ORDERED: DEXTROSE 50% IN WATER 50 ML VIAL(D50) IV PRN (20:45)
[2017-02-24 20:59] VITALS: O2SAT 98
[2017-02-24] MEDS: INSULIN ASPART SUPPLEMENTAL SCALE SQ SCH (21:00)
--- NOTE | 2017-02-24 21:23 | EKG ---
Date Performed: 02/24/2017 Time Performed: 18:29:58 PTAGE: 56 years EKG: BASELINE ARTIFACT PRESENT. SINUS TACHYCARDIA ABNORMAL QRS-T ANGLE ABNORMAL ECG COMPARED TO PRIOR ELECTROCARDIOGRAM, PVCs are no longer seen. PREVIOUS TRACING : 01/02/2017 22.55 DOCTOR: Zheng Rodriguez Interpretating Date/Time 02/24/2017 21:22:26
[2017-02-24] MEDS: SODIUM CHLORIDE 0.9% FLUSH 10 ML FLUSH IV FLUSH SCH (21:36)
[2017-02-24] MEDS: DOCUSATE SODIUM 50 MG/SENNA 8.6 MG TAB PO SCH (21:36)
[2017-02-24] MEDS: THIAMINE INJ 100 MG in SODIUM CHLORIDE 0.9% INJ 100 ML IV SCH (21:36)
[2017-02-24 21:47] VITALS: BP 150/80; PULSE 114; RESP 20; TEMP 98.1; O2SAT 98
[2017-02-24] MEDS: MULTIVITAMIN INJ 10 ML, FOLIC ACID INJ 1 MG in SODIUM CHLORID 0.9% 500 ML INJ 500 ML IV SCH (22:54)
[2017-02-24 23:40] VITALS: BP 153/92; PULSE 123; RESP 28; TEMP 98.3; O2SAT 98
[2017-02-25 01:03] LABS: CKMB 5.8 NG/ML (0.5-3.6)
[2017-02-25] MEDS: ONDANSETRON HCL 4 MG/2 ML VIAL IVP PRN ×4 (03:14→22:48)
[2017-02-25 03:50] VITALS: BP 155/82; PULSE 109; RESP 20; TEMP 98.5; O2SAT 100
[2017-02-25 04:13] LABS: AUTOMATED NEUTROPHIL # 8.9 TH/MM3 (1.8-7.7); BASOPHIL # 0.1 TH/MM3 (0-0.2); BASOPHIL % 0.9 % (0.0-2.0); EOSINOPHIL # 0.1 TH/MM3 (0-0.4); EOSINOPHIL % 0.4 % (0.0-4.0); HEMATOCRIT 31.4 % (39.0-51.0); HEMO FLAGS DIFF FINAL; MEAN CELL VOLUME 97.8 FL (80.0-100.0); MEAN CORPUSCULAR HGB CONC 31.6 % (32.0-36.0); MONO % 11.5 % (0.0-8.0); NEUT % 71.2 % (16.0-70.0); PLATELET COUNT 594 TH/MM3 (150-450); RED BLOOD COUNT 3.21 MIL/MM3 (4.50-5.90); RED CELL DISTRIBUTION WIDTH 15.4 % (11.6-17.2); WHITE BLOOD COUNT 12.5 TH/MM3 (4.0-11.0)
[2017-02-25 04:36] LABS: ANION GAP 21 MEQ/L (5-15); AST (GOT) 57 U/L (15-37); BICARBONATE 12.4 MEQ/L (21.0-32.0); BLOOD UREA NITROGEN 24 MG/DL (7-18); CHLORIDE 111 MEQ/L (98-107); GLOMERULAR FILTRATION RATE 69 ML/MIN (>89); POTASSIUM 4.5 MEQ/L (3.5-5.1); SODIUM (NA) 144 MEQ/L (136-145)
[2017-02-25 04:51] LABS: ALKALINE PHOSPHATASE 117 U/L (45-117); ALT (GPT) 33 U/L (12-78); CREATINE KINASE 1268 U/L (39-308); TOTAL BILIRUBIN ADULT 0.6 MG/DL (0.2-1.0)
[2017-02-25 05:22] LABS: CKMB 6.1 NG/ML (0.5-3.6)
[2017-02-25] MEDS: INSULIN ASPART SUPPLEMENTAL SCALE SQ SCH ×4 (06:30→21:15)
[2017-02-25 08:00] VITALS: BP 145/81; PULSE 109; RESP 20; TEMP 98.9; O2SAT 98
[2017-02-25] MEDS: SODIUM CHLORIDE 0.9% FLUSH 10 ML FLUSH IV FLUSH SCH ×2 (09:04→21:00)
[2017-02-25] MEDS: DOCUSATE SODIUM 50 MG/SENNA 8.6 MG TAB PO SCH ×2 (09:06→21:00)
[2017-02-25] MEDS: ACETAMINOPHEN 325 MG TAB PO PRN (09:09)
--- NOTE | 2017-02-25 09:55 | HHI.PR ---
Subjective Remarks Patient with nausea and he did vomit x1 time bloody emesis. No fever or chills. No abdominal pain. Says he did have a BM. No fever or chills. No tremors. Objective Vitals Vital Signs Date Time Temp Pulse Resp B/P Pulse Ox O2 Delivery O2 Flow Rate FiO2 02/25/17 03:50 98.5 109 20 155/82 100 02/24/17 23:40 98.3 123 28 153/92 98 02/24/17 21:47 98.1 114 20 150/80 98 02/24/17 20:59 98 02/24/17 19:16 98.7 111 18 143/84 98 02/24/17 18:35 98 Room Air 02/24/17 18:27 104 22 136/90 96 I/O 02/24/17 02/24/17 02/24/17 02/25/17 02/25/17 02/25/17 07:00 15:00 23:00 07:00 15:00 23:00 Intake Total 240 ml Output Total 450 ml 750 ml Balance -450 ml -510 ml Intake Oral 240 ml Output Urine Total 450 ml 550 ml Emesis 200 ml # Voids 3 Result Diagram: 02/25/17 0350 02/25/17 0350 Imaging Last Impressions Head CT 02/24/171818 Signed Impressions: Service Date/Time: Friday, February 24, 2017 18:54 - CONCLUSION: 1. Old left frontal infarct. 2. No acute infarct, acute hemorrhage, mass effect or extra-axial fluid collections. Christian Antoine MD Objective Remarks GENERAL: Middle-aged male, appears in no acute distress. Speech intelligible. HEENT: PERRLA, EOMI. No scleral icterus or conjunctival pallor. No lid lag or facial droop. Significantly dry mucous membranes, dry/cracked lips. CARDIOVASCULAR: Regular rate and rhythm. No obvious murmurs to auscultation. No chest tenderness to palpation. RESPIRATORY: No obvious rhonchi or wheezing. Clear to auscultation. Breath sounds equal bilaterally. GASTROINTESTINAL: Abdomen soft, non-tender, nondistended. BS normal. MUSCULOSKELETAL: Extremities without clubbing, cyanosis, or edema. No obvious deformities. NEUROLOGICAL: Awake, alert, oriented to person, place however confused at times. No focal neurologic deficits. Moving both upper and lower extremities spontaneously. A/P Problem List: (1) Encephalopathy ICD Code: G93.40 Status: Acute (2) Alcohol abuse ICD Code: F10.10 Status: Acute (3) Rhabdomyolysis ICD Code: M62.82 Status: Resolved (4) Dehydration ICD Code: E86.0 Status: Acute (5) Anemia ICD Code: D64.9 Status: Acute (6) COPD (chronic obstructive pulmonary disease) ICD Code: J44.9 Status: Chronic (7) CHF (congestive heart failure) ICD Code: I50.9 Status: Acute (8) DM (diabetes mellitus) ICD Code: E11.9 Status: Chronic (9) Tobacco abuse ICD Code: Z72.0 Status: Acute Assessment and Plan Acute Encephalopathy: Found down by Landlord in his apartment, estimated down for 2-3 days, unclear etiology. H/o Alcohol Abuse, last drink 2 days ago, ? Alcohol Withdrawal. CT Head w/ old infarct, no acute ischemia noted. No signs of sepsis/infection. Significant dehydration on exam. Recent admit 12/31-01/31/17 w/ Encephalopathy likely secondary to Alcohol Withdrawal, MRI Brain 01/13/17 negative, MRI Brain 01/20/17 left frontal/temporal encephalomalacia, EEG moderate to severe encephalopathy. Currently awake, oriented to person/place, however confused at times, speech difficult to understand. Speech Consult for eval/tx. Nausea and vomiting, bloody emesis. Constipation. Monitor H/H. Consult GI. Stat KUB. Insert NG tube at low intermittent suction if persistent nausea. Antiemetics/ Laxatives/stool softeners prn. Alcohol Abuse: Per report, drinks 2 Vodka/day, last drink approx 2 days ago, no tremors. Seizure Precautions, CIWA, MVT/Thiamine/Folate replacement. Rhabdomyolysis Metabolic acidosis 2/2 EtOH use, DM. Elevated Beta hydroxybutirate. CPK 1816 on admission. Trending down. Monitor. Continue IVF for hydration. Check serial CPK for trend. U/a negative. Consult nephrology Dehydration: Significant dehydration on exam, GFR 69, CPK elevated. IVF for hydration. H/o CHF, however no acute fluid overload at this time. Diastolic CHF: Chronic. Diastolic. Echo 01/09/17 w/ EF 55-60%, Grade 2 Diastolic Dysfunction. No evidence of fluid overload. Will monitor. Anemia: Hgb 4.5, repeat labs w/ Hgb 9.8. Will monitor. No need for transfusion at this time. COPD. Chronic Respiratory Failure. Stable. DuoNeb prn. Monitor VS. DM: Hold Metformin/Janumet in light of significant dehydration and decreased PO intake x2 days. Sliding scale w/ Accu-Cheks. Tobacco Abuse: Ativan/NicoDerm prn if needed. DVT Prophylaxis: SCD/Teds. Case management consulted for d/c planning as needed. Discussed with the patient, nurse Problem Qualifiers (1) Rhabdomyolysis: Qualified Code: M62.82 - Non-traumatic rhabdomyolysis Esther Fall MD February 25, 2017 09:55
[2017-02-25 12:00] VITALS: BP 151/76; PULSE 114; RESP 20; TEMP 98.2; O2SAT 100
--- NOTE | 2017-02-25 13:33 | RADRPT ---
EXAM DATE/TIME: 02/25/2017 12:30 [place] COMPARISON: ABDOMEN KUB ONLY, December 31, 2016, 19:25. INDICATIONS : Nausea. MEDICAL HISTORY : Hepatitis C. Cardiovascular disease Deep venous thrombosis.Congestive heart failure. Diabetes. Hypert ension. SURGICAL HISTORY : None. ENCOUNTER: Subsequent ACUITY: 3 days PAIN SCORE: 2/10 LOCATION: Abdomen. FINDINGS: 2 supine frontal views of the abdomen demonstrate air within bowel in a nonobstructive pattern. No or ganomegaly is present. Lung bases are clear. No acute osseous abnormality is seen. There is hardware in the right proximal femur. CONCLUSION: No acute abdominal abnormality is identified. Pk Abreu MD on February 25, 2017 at 13:30 Board Certified Radiologist. This report was verified electronically.
[2017-02-25] MEDS: SODIUM BICARBONATE 8.4% INJ 75 MEQ in SODIUM CHLOR 0.45% 1000 ML INJ 1,000 ML IV SCH (14:53)
[2017-02-25 16:00] VITALS: BP 119/85; PULSE 107; RESP 20; TEMP 97.7; O2SAT 98
--- NOTE | 2017-02-25 16:14 | MB ---
cc: TEJAS BRANNON MD DATE OF CONSULTATION: 02/25/2017 REASON FOR CONSULTATION Metabolic acidosis and rhabdomyolysis. HISTORY OF PRESENT ILLNESS This is a 56-year-old male with past medical history of anxiety, depression, hypertension, chronic obstructive pulmonary disease, diastolic dysfunction, history of alcoholism, history of acute kidney injury in the past, was admitted because of being found on the floor. I was called to see the patient because of metabolic acidosis and elevated CPK and Beta-hydroxybutyrate acid. The patient was previously admitted last month and at that time he also had acute kidney injury. His creatinine was as high as 5.6 and then it was improving and when he was discharged it has been like 1.0 to 1.1. Now he came with a creatinine of 1.1 but his bicarb is very low at 12.4, it was 9.9 and his CPK was 1548 and now it is 1268. The patient also has high level of Beta-hydroxybutyrate and it was 8.6 and now it is 7.0. The patient has been drinking alcohol and the last time he had a drink was 2-3 days ago before he came in here and he does not remember exactly when he was brought in here. He lives with a roommate and he was found on the floor. The patient has nausea and vomiting off and on, going on for the last few days and his appetite was not very good. He has few loose bowel motion usually about one to two per day last few days. On presentation it was noted that he was on the floor for sometime, the patient does not remember exactly but it is noted that he was on the floor for possibly [id number] days. PAST MEDICAL HISTORY 1. Anxiety. 2. Depression. 3. Chronic obstructive pulmonary disease. 4. Hypertension. 5. Diastolic dysfunction. 6. History of alcoholism. 7. Recent history of acute kidney injury. PAST SURGICAL HISTORY 1. Splenectomy. 2. Right leg surgery. 3. Mandibular surgery. REVIEW OF SYSTEMS The patient is still has generalized weakness, feeling tired and decreased appetite, has nausea off and on, vomiting. He has loose bowel motion, yesterday it was twice. No abdominal pain. He has some shortness of breath but it is better now. There was some blood in the vomitus, according to the patient. There is no dysuria, hematuria. He did not notice any decrease in the urine output. SOCIAL HISTORY The patient lives with a roommate. He drinks two vodka per day and smokes about half to one pack per day and also takes marijuana. FAMILY HISTORY Noncontributory. ALLERGIES He is allergic to TORADOL. MEDICATIONS He is on: 1. Frida-Colace one tablet b.i.d. 2. Thiamine 100 mg once a day. 3. Multivitamin with folic acid. 4. IV fluid 125 an hour. 5. Thiamine 100 mL an hour. 6. Insulin as per sliding scale. 7. Flumazenil 0.2 mg p.r.n. 8. Ativan p.r.n. PHYSICAL EXAMINATION GENERAL: The patient is awake, alert. He is eating his lunch now. VITAL SIGNS: His last blood pressure is 155/82, temperature 98.5, oxygen saturation 98-100%. HEENT: Pupils equally reacting to light. Nonicteric sclerae. Conjunctivae pale. NECK: Neck supple. JVD is not elevated. LUNGS: The patient has bilateral decreased air entry with diffuse wheezing. HEART: S1, S2, regular rhythm. ABDOMEN: Abdomen is soft, lax. There is no tenderness. Bowel sounds positive. EXTREMITIES: He has no pedal edema. INVESTIGATION WBC count is 12.5, hemoglobin 9.9, platelet count of 594, neutrophils 71.2%, sodium is 144, potassium 4.5, chloride 111, bicarb 12.4, BUN 24, creatinine 1.1, glucose 184, AST 0.6, AST is 57, total bilirubin 0.6, ALT is 33, creatinine kinase is still 68, total protein is 7.2 with albumin of 2.8. Urinalysis showing protein of 30. Beta-hydroxybutyrate level was 7.0, was 8.7 on presentation. Toxicology screen showing opiate positive and cannabinoids positive, ethyl alcohol level was less than 3. His VY was positive during last admission, one is to 160. IMAGING STUDIES The patient has CT scan of the brain done which shows old left frontal infarction, no acute infarction or hemorrhage. ASSESSMENT/PLAN 1. Encephalopathy. 2. Severe metabolic acidosis. 3. Diabetic ketoacidosis. 4. Rhabdomyolysis. 5. History of alcoholism. 6. Severe anemia and GI bleeding. The patient has severe metabolic acidosis most likely this is diabetic ketoacidosis with positive Beta-hydroxybutyrate but he also has possibility of alcohol ketoacidosis and he was on metformin for his diabetes. Metformin has been on hold. He has also rhabdomyolysis because of lying on the floor. I will give him some IV fluids with sodium bicarbonate and follow the urine output and the BUN and creatinine and CPK level and the bicarb level. The patient was recently admitted and was seen by Dr. Guevara, so we asked him to follow the patient. Thank you for the consultation. MD SHASHI Kauffman/TLL /1:00 PM /3:47 PM
--- NOTE | 2017-02-25 17:02 | PD.CONS ---
HPI History of Present Illness This is a 56 year old [gentleman] w/ hx ETOH abuse who was brought here yesterday after he was found down. Pt largely noncontributory, hx obtained from EMR and RN. Per RN last night he began having hematemesis with brown blood. He had it this morning as well. No rectal bleeding or abdominal pain. Pt does admit to drinking a couple drinks a day 3-4 times per week, per EMR he has been treated here for alcoholism. Never had EGD or colonoscopy. (Liana De Los Santos) PFSH Past Medical History PMH: Anxiety, Depression, COPD, HTN, CHF (Echo 01/09/17 w/ EF 55-60%, Grade 2 Diastolic Dysfunction), Alcohol Abuse and Tobacco Abuse Past Surgical History PAST SURGICAL HISTORY: Splenectomy, RLE Brought the Mandible Surgery (Liana De Los Santos) Coded Allergies: Toradol (Verified Allergy, Intermediate, Headache, 01/31/17) *MDRO Multi-Drug Resistant Organism (Verified Adverse Reaction, Unknown, ) ESBL K. pneumoniae (sputum) - 01/14/17 Family History PAST FAMILY HISTORY: Reviewed. No h/o DM or CAD Social History PAST SOCIAL HISTORY: per pt 2 drinks daily 3-4 x week. Smokes 1/2-1ppd. + Marijuana, opiates. (Liana De Los Santos) Review of Systems Constitutional: DENIES: Fever Gastrointestinal: DENIES: Abdominal pain (pt mostly non contributory) (Liana De Los Santos) GI Exam Vitals I&O Vital Signs Date Time Temp Pulse Resp B/P Pulse Ox O2 Delivery O2 Flow Rate FiO2 02/25/17 12:00 98.2 114 20 151/76 100 02/25/17 08:00 98.9 109 20 145/81 98 02/25/17 03:50 98.5 109 20 155/82 100 02/24/17 23:40 98.3 123 28 153/92 98 02/24/17 21:47 98.1 114 20 150/80 98 02/24/17 20:59 98 02/24/17 19:16 98.7 111 18 143/84 98 02/24/17 18:35 98 Room Air 02/24/17 18:27 104 22 136/90 96 I/O 02/24/17 02/24/17 02/24/17 02/25/17 02/25/17 02/25/17 07:00 15:00 23:00 07:00 15:00 23:00 Intake Total 240 ml Output Total 450 ml 750 ml Balance -450 ml -510 ml Intake Oral 240 ml Output Urine Total 450 ml 550 ml Emesis 200 ml # Voids 3 Imaging Last Impressions Abdomen X-Ray 02/25/17 0000 Signed Impressions: Service Date/Time: Saturday, February 25, 2017 12:30 - CONCLUSION: No acute abdominal abnormality is identified. Pk Abreu MD Head CT 02/24/17 1819 Signed Impressions: Service Date/Time: Friday, February 24, 2017 18:54 - CONCLUSION: 1. Old left frontal infarct. 2. No acute infarct, acute hemorrhage, mass effect or extra-axial fluid collections. Christian Antoine MD Laboratory Test 02/24/17 02/24/17 02/24/17 02/24/17 18:30 18:33 19:10 19:38 Prothrombin Time 10.4 SEC Prothromb Time International 0.9 RATIO Ratio Activated Partial 25.2 SEC Thromboplast Time Sodium Level 139 MEQ/L Potassium Level 5.0 MEQ/L Chloride Level 108 MEQ/L Carbon Dioxide Level 9.9 MEQ/L Anion Gap 21 MEQ/L Blood Urea Nitrogen 28 MG/DL Creatinine 1.11 MG/DL Estimat Glomerular Filtration 69 ML/MIN Rate Random Glucose 117 MG/DL Lactic Acid Level 1.2 mmol/L Calcium Level 8.9 MG/DL Total Bilirubin 0.6 MG/DL Aspartate Amino Transf 92 U/L (AST/SGOT) Alanine Aminotransferase 42 U/L (ALT/SGPT) Alkaline Phosphatase 141 U/L Ammonia 18 MCMOL/L Total Creatine Kinase 1816 U/L Creatine Kinase MB 7.3 NG/ML Creatine Kinase MB % 0.4 % Troponin I LESS THAN 0.02 NG/ML Total Protein 8.1 GM/DL Albumin 2.9 GM/DL Ethyl Alcohol Level LESS THAN 3 MG/DL B-Hydroxybutyrate 8.67 MMOL/L Blood Gas Puncture Site RT RADIAL Blood Gas Patient Temperature 98.6 Blood Gas HCO3 10 mmol/L Blood Gas Base Excess -14.5 mmol/L Blood Gas Oxygen Saturation 94 % Arterial Blood pH 7.33 Arterial Blood Partial 20 mmHg Pressure CO2 Arterial Blood Partial 92 mmHG Pressure O2 Arterial Blood Oxygen Content 13.8 Vol % Arterial Blood 2.4 % Carboxyhemoglobin Arterial Blood Methemoglobin 0.9 % Blood Gas Hemoglobin 10.4 G/DL Oxygen Delivery Device ROOM AIR Blood Gas Inspired Oxygen 21 % Urine Color YELLOW Urine Turbidity CLEAR Urine pH 5.5 Urine Specific [place] 1.017 Urine Protein 30 mg/dL Urine Glucose (UA) TRACE mg/dL Urine Ketones 150 mg/dL Urine Occult Blood NEG Urine Nitrite NEG Urine Bilirubin NEG Urine Urobilinogen 2.0 MG/DL Urine Leukocyte Esterase NEG Urine RBC LESS THAN 1 /hpf Urine WBC 1 /hpf Urine Hyaline Casts 1 /lpf Microscopic Urinalysis Comment CATH-CULT NOT IND Iron Level 29 MCG/DL Total Iron Binding Capacity 225 MCG/DL Percent Iron Saturation 12.9 % Salicylates Level 4.1 MG/DL Urine Opiates Screen POS Acetaminophen Level LESS THAN 2.0 MCG/ML Urine Barbiturates Screen NEG Urine Amphetamines Screen NEG Urine Benzodiazepines Screen NEG Urine Cocaine Screen NEG Urine Cannabinoids Screen POS Blood Type O POSITIVE Antibody Screen NEGATIVE Crossmatch Leukocyte-Reduced Red Blood Cells Blood Bank Comment White Blood Count 12.4 TH/MM3 Red Blood Count 3.05 MIL/MM3 Hemoglobin 9.8 GM/DL Hematocrit 29.6 % Mean Corpuscular Volume 97.0 FL Mean Corpuscular Hemoglobin 32.1 PG Mean Corpuscular Hemoglobin 33.1 % Concent Red Cell Distribution Width 15.2 % Platelet Count 629 TH/MM3 Mean Platelet Volume 8.7 FL Neutrophils (%) (Auto) 70.7 % Lymphocytes (%) (Auto) 15.3 % Monocytes (%) (Auto) 13.0 % Eosinophils (%) (Auto) 0.4 % Basophils (%) (Auto) 0.6 % Neutrophils # (Auto) 8.8 TH/MM3 Lymphocytes # (Auto) 1.9 TH/MM3 Monocytes # (Auto) 1.6 TH/MM3 Eosinophils # (Auto) 0.1 TH/MM3 Basophils # (Auto) 0.1 TH/MM3 CBC Comment DIFF FINAL Differential Comment Hematology Comments Test 02/24/17 02/25/17 23:37 03:50 Total Creatine Kinase 1548 U/L 1268 U/L Creatine Kinase MB 5.8 NG/ML 6.1 NG/ML Creatine Kinase MB % 0.4 % 0.5 % White Blood Count 12.5 TH/MM3 Red Blood Count 3.21 MIL/MM3 Hemoglobin 9.9 GM/DL Hematocrit 31.4 % Mean Corpuscular Volume 97.8 FL Mean Corpuscular Hemoglobin 31.0 PG Mean Corpuscular Hemoglobin 31.6 % Concent Red Cell Distribution Width 15.4 % Platelet Count 594 TH/MM3 Mean Platelet Volume 8.7 FL Neutrophils (%) (Auto) 71.2 % Lymphocytes (%) (Auto) 16.0 % Monocytes (%) (Auto) 11.5 % Eosinophils (%) (Auto) 0.4 % Basophils (%) (Auto) 0.9 % Neutrophils # (Auto) 8.9 TH/MM3 Lymphocytes # (Auto) 2.0 TH/MM3 Monocytes # (Auto) 1.4 TH/MM3 Eosinophils # (Auto) 0.1 TH/MM3 Basophils # (Auto) 0.1 TH/MM3 CBC Comment DIFF FINAL Differential Comment Sodium Level 144 MEQ/L Potassium Level 4.5 MEQ/L Chloride Level 111 MEQ/L Carbon Dioxide Level 12.4 MEQ/L Anion Gap 21 MEQ/L Blood Urea Nitrogen 24 MG/DL Creatinine 1.11 MG/DL Estimat Glomerular Filtration 69 ML/MIN Rate Random Glucose 184 MG/DL Calcium Level 8.6 MG/DL Total Bilirubin 0.6 MG/DL Aspartate Amino Transf 57 U/L (AST/SGOT) Alanine Aminotransferase 33 U/L (ALT/SGPT) Alkaline Phosphatase 117 U/L Total Protein 7.2 GM/DL Albumin 2.8 GM/DL B-Hydroxybutyrate 7.00 MMOL/L Physical Examination HEENT: EOMI; normocephalic; atraumatic; no jaundice. CHEST: CTA CARDIAC: RRR ABDOMEN: Soft, nondistended, nontender; no hepatosplenomegaly; bowel sounds are present in all four quadrants. EXTREMITIES: No clubbing, cyanosis, or edema. SKIN: Normal; no rash; no jaundice. CLINICAL RESEARCH NURSE COORDINATOR: lethargic (Liana De Los Santos) Assessment and Plan Plan ASSESSMENT - hematemesis - onset 1 day ago, dark brown emesis. Pt brought to hospital after being found down. WAs here in december, CT 12-31-16 --> colonic diverticulosis sm calcified gall stone, GB nondilated. + marijuana, opiates. On PPI. - anemia - 9.9, 31.4 stable since yesterday. PLAN - EGD - obtain consents - NPO - continue PPI - monitor HH Further recommendations after results above This pt seen by myself and DR Gómez and this note is written on his behalf ( Liana De Los Santos) Physician Comments As above, will proceed with EGD in AM. Risk, benefits and possible complications explained to the patient. Further recommendations to follow. (Gi Gómez MD) Liana De Los Santos February 25, 2017 17:02 Gi Gómez MD February 25, 2017 23:18
[2017-02-25 20:00] VITALS: BP 147/79; PULSE 100; RESP 20; TEMP 98.8; O2SAT 99
[2017-02-25 21:00] VITALS: PULSE 102
[2017-02-25] MEDS: MULTIVITAMIN INJ 10 ML, FOLIC ACID INJ 1 MG in SODIUM CHLORID 0.9% 500 ML INJ 500 ML IV SCH (21:08)
[2017-02-25] MEDS: THIAMINE INJ 100 MG in SODIUM CHLORIDE 0.9% INJ 100 ML IV SCH (22:48)
[2017-02-26] VITALS (9 sets, daily range): BP systolic 121–138; BP diastolic 69–82; PULSE 86–108; RESP 18–20; TEMP 98.3–98.9; O2SAT 97–98
[2017-02-26] MEDS: SODIUM BICARBONATE 8.4% INJ 75 MEQ in SODIUM CHLOR 0.45% 1000 ML INJ 1,000 ML IV SCH ×2 (02:48→16:56)
[2017-02-26] MEDS: ONDANSETRON HCL 4 MG/2 ML VIAL IVP PRN ×3 (05:20→18:32)
[2017-02-26] MEDS: INSULIN ASPART SUPPLEMENTAL SCALE SQ SCH ×4 (06:00→21:24)
[2017-02-26 07:35] LABS: AUTOMATED NEUTROPHIL # 7.9 TH/MM3 (1.8-7.7); BASOPHIL # 0.1 TH/MM3 (0-0.2); BASOPHIL % 0.7 % (0.0-2.0); EOSINOPHIL # 0.3 TH/MM3 (0-0.4); EOSINOPHIL % 2.1 % (0.0-4.0); HEMATOCRIT 30.3 % (39.0-51.0); HEMO FLAGS DIFF FINAL; LYMPH % 23.3 % (9.0-44.0); LYMPHOCYTE # 2.9 TH/MM3 (1.0-4.8); MEAN CELL VOLUME 95.5 FL (80.0-100.0); MEAN CORPUSCULAR HEMOGLOBIN 30.7 PG (27.0-34.0); MEAN CORPUSCULAR HGB CONC 32.2 % (32.0-36.0); MONO % 11.1 % (0.0-8.0); NEUT % 62.8 % (16.0-70.0); PLATELET COUNT 537 TH/MM3 (150-450); RED BLOOD COUNT 3.17 MIL/MM3 (4.50-5.90); RED CELL DISTRIBUTION WIDTH 15.1 % (11.6-17.2); WHITE BLOOD COUNT 12.6 TH/MM3 (4.0-11.0)
[2017-02-26 08:01] LABS: BICARBONATE 21.3 MEQ/L (21.0-32.0); MAGNESIUM 1.7 MG/DL (1.5-2.5); POTASSIUM 3.8 MEQ/L (3.5-5.1)
[2017-02-26 08:25] LABS: CKMB 1.3 NG/ML (0.5-3.6)
[2017-02-26] MEDS ORDERED: SODIUM CHLORIDE 0.9% FLUSH 10 ML FLUSH IV FLUSH ONE (09:00)
[2017-02-26] MEDS ORDERED: SODIUM CHLORID 0.9% 500 ML BAG IV ONE (09:00)
[2017-02-26] MEDS: DOCUSATE SODIUM 50 MG/SENNA 8.6 MG TAB PO SCH ×2 (09:18→21:20)
[2017-02-26] MEDS: SODIUM CHLORIDE 0.9% FLUSH 10 ML FLUSH IV FLUSH SCH ×2 (09:18→21:20)
[2017-02-26] MEDS ORDERED: PROPOFOL 200 MG/20 ML AMP IV ONE (09:44)
--- NOTE | 2017-02-26 09:58 | GIPROC ---
[facility] [address] [facility]. [facility], [id number] EGD PROCEDURE REPORT EXAM DATE: 02/26/2017 PATIENT NAME: Adi Israel MR #: [id number] BIRTHDATE: 1960 ATTENDING: Gi Gómez MD ORDER #: [id number] STAFF DEVELOPMENT MANAGER: Eusebio Carbajal and Tameka Argueta STATUS: inpatient INDICATIONS: The patient is a 56 yr old male here for an EGD due to hematemesis PROCEDURE PERFORMED: EGD w/ biopsy MEDICATIONS: None and Per Anesthesia. TOPICAL ANESTHETIC: none CONSENT: The patient understands the risks and benefits of the procedure and understands that these risks include, but are not limited to: sedation, allergic reaction, infection, perforation and/or bleeding. Alternative means of evaluation and treatment include, among others: physical exam, x-rays, and/or surgical intervention. The patient elects to proceed with this endoscopic procedure. medical equipment was checked for proper function. Hand hygiene and appropriate measures for infection prevention was taken. After the risks, benefits and alternatives of the procedure were thoroughly explained, Informed consent was verified, confirmed and timeout was successfully executed by the treatment team. The patient was anesthetized with topical anesthesia and the Pentax [id number] endoscope was introduced through the mouth and advanced to the second portion of the duodenum. Retroflexion was performed and was normal The gastroscope was then slowly withdrawn and removed. ESOPHAGUS: There was LA Class C esophagitis noted. STOMACH: There was a moderate amount of residual food seen in the gastric fundus. Due to the residual food, complete mucosal examination could not be performed. The stomach otherwise appeared normal. Multiple biopsies were performed. Sample sent for histology. DUODENUM: Multiple large non-bleeding non-bleeding, irregular shaped and clean-based ulcers were found in the 2nd part of the duodenum. ADVERSE EVENTS: There were no complications. IMPRESSIONS: 1. There was LA Class C esophagitis noted 2. Food residue and bile in the gastric fundus, limiting the examination 3. The stomach otherwise appeared normal 4. Multiple large non-bleeding ulcers were found in the 2nd part of the duodenum 5. Retroflexion was performed and was limited by residual food RECOMMENDATIONS: 1. Await biopsy results. Biopsy results will not be ready for 7-10 days. If you don't hear from us in two weeks, call our office for biopsy results. 2. Continue PPI 3. Avoid NSAIDS PATIENT CONDITION: stable DISPOSITION: Observation REPEAT EXAM: Return 2 months EGD Gi Gómez MD eSigned: Gi Góemz MD 02/26/2017 9:58 AM cc: PATIENT NAME: Adi Israel MR#: [id number]
--- NOTE | 2017-02-26 10:50 | HHI.PR ---
Subjective Remarks Patient reports he is feeling better. Has generalized body ache. No fevers or chills. Objective Vitals Vital Signs Date Time Temp Pulse Resp B/P Pulse Ox O2 Delivery O2 Flow Rate FiO2 02/26/17 10:05 95 16 145/82 98 02/26/17 10:00 106 16 137/81 98 02/26/17 09:55 98.2 110 16 133/79 98 02/26/17 09:00 98.9 104 18 129/73 97 02/26/17 08:01 98.9 104 18 129/73 97 02/26/17 04:00 98.6 108 20 137/75 97 02/26/17 00:00 98.4 107 18 121/80 97 02/25/17 21:00 102 02/25/17 20:00 98.8 100 20 147/79 99 02/25/17 16:00 97.7 107 20 119/85 98 02/25/17 12:00 98.2 114 20 151/76 100 I/O 02/25/17 02/25/17 02/25/17 02/26/17 02/26/17 02/26/17 07:00 15:00 23:00 07:00 15:00 23:00 Intake Total 240 ml 600 ml 240 ml 0 ml 50 ml Output Total 750 ml 1000 ml 575 ml Balance -510 ml -400 ml -335 ml 0 ml 50 ml Intake Oral 240 ml 600 ml 240 ml 0 ml IV Total 50 ml Output Urine Total 550 ml 1000 ml 575 ml Emesis 200 ml # Voids 3 0 # Bowel Movements 0 0 0 Result Diagram: 02/26/17 0616 02/26/17 0616 Imaging Last Impressions Abdomen X-Ray 02/25/17 0000 Signed Impressions: Service Date/Time: Saturday, February 25, 2017 12:30 - CONCLUSION: No acute abdominal abnormality is identified. Pk Abreu MD Head CT 02/24/17 1819 Signed Impressions: Service Date/Time: Friday, February 24, 2017 18:54 - CONCLUSION: 1. Old left frontal infarct. 2. No acute infarct, acute hemorrhage, mass effect or extra-axial fluid collections. Christian Antoine MD Objective Remarks GENERAL: Patient appearing older than stated age, in no apparent distress. SKIN: Patient has multiple abrasions and skin tears involving the right elbow and feet.Left heal with an area of eschar. CARDIOVASCULAR: Normal rate and regular rhythm without murmurs, gallops, or rubs. RESPIRATORY: Good respiratory efforts. Breath sounds equal and clear to auscultation bilaterally. GASTROINTESTINAL: Abdomen soft, non-tender, non-distended. Normal active bowel sounds MUSCULOSKELETAL: Extremities without cyanosis, or edema. NEURO: Alert & Oriented x4 to person, place, time, situation. Moves all ext x4 PSYCH: Appropriate mood and affect. A/P Problem List: (1) Encephalopathy ICD Code: G93.40 Status: Acute (2) Alcohol abuse ICD Code: F10.10 Status: Acute (3) Rhabdomyolysis ICD Code: M62.82 Status: Resolved (4) Dehydration ICD Code: E86.0 Status: Acute (5) Anemia ICD Code: D64.9 Status: Acute (6) COPD (chronic obstructive pulmonary disease) ICD Code: J44.9 Status: Chronic (7) CHF (congestive heart failure) ICD Code: I50.9 Status: Acute (8) DM (diabetes mellitus) ICD Code: E11.9 Status: Chronic (9) Tobacco abuse ICD Code: Z72.0 Status: Acute Assessment and Plan 56 Y/O male with: Acute Encephalopathy: Found down by Landlord in his apartment, estimated down for 2-3 days. Probably related to alcohol intoxication. CT Head w/ old infarct , no acute ischemia noted. No signs of sepsis/infection. Significant dehydration on admission. Recent admit 12/31-01/31/17 w/ Encephalopathy likely secondary to Alcohol Withdrawal, MRI Brain 01/13/17 negative, MRI Brain 01/20/17 left frontal/temporal encephalomalacia, EEG moderate to severe encephalopathy. Currently awake, oriented to person/place. - Improving. Physical therapy to evaluate. Nausea and vomiting, bloody emesis. Constipation. - Appreciate GI following. Status post EGD which revealed multiple clean-based duodenal ulcers, esophagitis. No active bleeding PPI, avoid NSAIDs. Patient thoroughly counseled regarding not to drink anymore alcohol. Alcohol Abuse: Per report, drinks 2 Vodka/day, last drink approx 2 days ago, no tremors. Seizure Precautions, CIWA, MVT/Thiamine/Folate replacement. Patient was counseled regarding the need for abstinence. Rhabdomyolysis Metabolic acidosis 2/2 EtOH use, DM. Elevated Beta hydroxybutirate. CPK 1816 on admission. Trending down. Monitor. Continue IVF for hydration. Check serial CPK for trend. U/a negative. Appreciate nephrology following. Improving with IV fluids and bicarbonate. Diastolic CHF: Chronic. Diastolic. Echo 01/09/17 w/ EF 55-60%, Grade 2 Diastolic Dysfunction. No evidence of fluid overload. Will monitor. Anemia: Hgb 4.5, on presentation ? Lab error. Repeat labs w/ Hgb 9.8. Will monitor. No need for transfusion at this time. COPD. Chronic Respiratory Failure. Stable. DuoNeb prn. Monitor VS. DM: Hold Metformin/Janumet in light of significant dehydration and decreased PO intake x2 days. Sliding scale w/ Accu-Cheks. Check hemoglobin A1c Tobacco Abuse: Ativan/NicoDerm prn if needed. DVT Prophylaxis: SCD/Teds. Problem Qualifiers (1) Rhabdomyolysis: Qualified Code: M62.82 - Non-traumatic rhabdomyolysis Maggie Francisco MD February 26, 2017 10:50
--- NOTE | 2017-02-26 14:50 | HHI.NPPN ---
Subjective History of Present Illness 56 year old male Rhabdo Additional Remarks he is doing better hx Of ETOH Review of Systems General Constitutional: Fatigue Objective Data Data 02/25/17 02/26/17 19:00 07:00 Intake Total 600 ml 240 ml Output Total 1000 ml 575 ml Balance -400 ml -335 ml Intake Oral 600 ml 240 ml Output Urine Total 1000 ml 575 ml # Voids 0 # Bowel Movements 0 0 Vital Signs Date Time Temp Pulse Resp B/P Pulse Ox O2 Delivery O2 Flow Rate FiO2 02/26/17 10:05 95 16 145/82 98 02/26/17 10:00 106 16 137/81 98 02/26/17 09:55 98.2 110 16 133/79 98 02/26/17 09:00 98.9 104 18 129/73 97 02/26/17 08:48 86 02/26/17 08:01 98.9 104 18 129/73 97 02/26/17 04:00 98.6 108 20 137/75 97 02/26/17 00:00 98.4 107 18 121/80 97 02/25/17 21:00 102 02/25/17 20:00 98.8 100 20 147/79 99 02/25/17 16:00 97.7 107 20 119/85 98 -: 02/26/17 0616 02/26/17 0616 Physical Exam General Appearance: Well Developed, Well Nourished Neck Neck Exam: Neck Supple Pulmonary Resp Exam: Clear Bilaterally, Breath Sounds Equal Cardiology CV Exam: Regular, Normal Sinus Rhythm Gastrointestinal/Abdomen GI Exam: Soft, Non-Tender, Positive Bowel Movement Extremeties Extremities Exam: No Edema Neurologic Neuro Exam: Alert, Awake Assessment/Plan Problem List: (1) Rhabdomyolysis Plan: resolving may dc IVF by am Cr normal discussed and told him stop using ETOH will follow PRN (2) Encephalopathy (3) DM (diabetes mellitus) (4) Duodenal ulcer Plan: GI Following not on Protonix yet will order Problem Qualifiers (1) Rhabdomyolysis: Qualified Code: M62.82 - Non-traumatic rhabdomyolysis Nikita Guevara MD February 26, 2017 14:50
[2017-02-26] MEDS ORDERED: PANTOPRAZOLE SOD 40 MG DELAYED RELEASE TAB PO ONE (15:00)
[2017-02-26] MEDS: ACETAMINOPHEN 325 MG TAB PO PRN (18:31)
[2017-02-26 20:03] LABS: HEMOGLOBIN A1a 1.2 %; HEMOGLOBIN A1b 1.7 %; HEMOGLOBIN Ao 84.2 %; HEMOGLOBIN LA1C 2.1 %; HEMOGLOBIN P3 5.3 %
[2017-02-26] MEDS: THIAMINE INJ 100 MG in SODIUM CHLORIDE 0.9% INJ 100 ML IV SCH (21:20)
[2017-02-26] MEDS: MULTIVITAMIN INJ 10 ML, FOLIC ACID INJ 1 MG in SODIUM CHLORID 0.9% 500 ML INJ 500 ML IV SCH (22:32)
[2017-02-27] VITALS (9 sets, daily range): BP systolic 113–132; BP diastolic 68–79; PULSE 86–111; RESP 18–20; TEMP 97.9–99.2; O2SAT 94–99
[2017-02-27] MEDS: ONDANSETRON HCL 4 MG/2 ML VIAL IVP PRN (00:09)
[2017-02-27] MEDS: INSULIN ASPART SUPPLEMENTAL SCALE SQ SCH ×4 (06:22→20:57)
[2017-02-27] MEDS: SODIUM BICARBONATE 8.4% INJ 75 MEQ in SODIUM CHLOR 0.45% 1000 ML INJ 1,000 ML IV SCH (06:27)
[2017-02-27 07:28] LABS: HEMATOCRIT 25.8 % (39.0-51.0); MEAN CELL VOLUME 94.8 FL (80.0-100.0); MEAN CORPUSCULAR HGB CONC 32.7 % (32.0-36.0); PLATELET COUNT 487 TH/MM3 (150-450); RED BLOOD COUNT 2.72 MIL/MM3 (4.50-5.90); RED CELL DISTRIBUTION WIDTH 14.7 % (11.6-17.2); REVIEW FLAG FINAL; WHITE BLOOD COUNT 12.1 TH/MM3 (4.0-11.0)
[2017-02-27 08:07] LABS: BICARBONATE 27.7 MEQ/L (21.0-32.0); POTASSIUM 3.5 MEQ/L (3.5-5.1)
[2017-02-27] MEDS: PANTOPRAZOLE SOD 40 MG DELAYED RELEASE TAB PO SCH (09:21)
[2017-02-27] MEDS: DOCUSATE SODIUM 50 MG/SENNA 8.6 MG TAB PO SCH ×2 (09:21→20:55)
[2017-02-27] MEDS: SODIUM CHLORIDE 0.9% FLUSH 10 ML FLUSH IV FLUSH SCH ×2 (09:21→20:55)
--- NOTE | 2017-02-27 12:12 | HHI.GIFU ---
Subjective Remarks Pt resting in bed, in no apparent distress. Says he had some epigastric pain after eating grits. Says he knows he has to stop drinking. (Liana De Los Santos) Objective Vitals I&O Vital Signs Date Time Temp Pulse Resp B/P Pulse Ox O2 Delivery O2 Flow Rate FiO2 02/27/17 08:01 98.6 95 18 132/79 96 02/27/17 04:00 97.9 95 18 131/73 95 02/27/17 00:00 98.5 100 20 114/73 97 02/26/17 20:14 97 02/26/17 20:00 98.8 95 18 132/69 98 02/26/17 16:00 98.4 106 18 138/75 97 I/O 02/26/17 02/26/17 02/26/17 02/27/17 02/27/17 02/27/17 06:59 14:59 22:59 06:59 14:59 22:59 Intake Total 0 ml 430 ml 700 ml 1229 ml Output Total 1200 ml 250 ml 150 ml Balance 0 ml -770 ml 450 ml 1079 ml Intake Oral 0 ml 380 ml 0 ml 0 ml IV Total 50 ml 700 ml 1229 ml Output Urine Total 1200 ml 250 ml 150 ml # Voids 0 # Bowel Movements 0 1 0 0 Laboratory Laboratory Tests Test 02/27/17 06:38 White Blood Count 12.1 Red Blood Count 2.72 Hemoglobin 8.4 Hematocrit 25.8 Mean Corpuscular Volume 94.8 Mean Corpuscular Hemoglobin 31.0 Mean Corpuscular Hemoglobin 32.7 Concent Red Cell Distribution Width 14.7 Platelet Count 487 Mean Platelet Volume 8.9 Sodium Level 140 Potassium Level 3.5 Chloride Level 104 Carbon Dioxide Level 27.7 Anion Gap 8 Blood Urea Nitrogen 10 Creatinine 0.68 Estimat Glomerular Filtration 121 Rate Random Glucose 160 Calcium Level 8.3 Total Creatine Kinase 199 Imaging Last Impressions Abdomen X-Ray 02/25/17 0000 Signed Impressions: Service Date/Time: Saturday, February 25, 2017 12:30 - CONCLUSION: No acute abdominal abnormality is identified. Pk Abreu MD Head CT 02/24/17 1819 Signed Impressions: Service Date/Time: Friday, February 24, 2017 18:54 - CONCLUSION: 1. Old left frontal infarct. 2. No acute infarct, acute hemorrhage, mass effect or extra-axial fluid collections. Christian Antoine MD Physical Exam HEENT: EOMI; normocephalic; atraumatic; no jaundice. CHEST: CTA CARDIAC: RRR ABDOMEN: Soft, nondistended, nontender; no hepatosplenomegaly; bowel sounds are present in all four quadrants. EXTREMITIES: No clubbing, cyanosis, or edema. SKIN: Normal; no rash; no jaundice. DIGITAL PERFORMANCE ANALYST: No focal deficits; alert and oriented times three. (Liana De Los Santos) Assessment and Plan Plan ASSESSMENT - hematemesis - dark brown emesis. Pt brought to hospital after being found down. s/p EGD 02-26-17--> LA class C esophagitis, food residue & bile in fundus limiting exam, multiple large non bleeding ulcers 2nd part of duodenum. WAs here in december, CT 12-31-16 --> colonic diverticulosis sm calcified gall stone, GB nondilated. + marijuana, opiates. On PPI. - anemia - 8.4 down from yesterday PLAN - continue PPI - monitor HH - repeat EGD in 2m Further recommendations after results above This pt seen by myself and DR Gómez and this note is written on his behalf ( Liana De Los Santos) Physician Comments Seen and examined, will follow up with you. further recommendations to follow. (Gi Gómez MD) Liana De Los Santos February 27, 2017 12:12 Gi Gómez MD February 27, 2017 12:49
--- NOTE | 2017-02-27 14:41 | HHI.PR ---
Subjective Remarks Patient is still very weak. States he still has some mild nausea and epigastric discomfort. He wants to eat some mashed potatoes. Podiatry planning for bedside debridement of the left heel eschar. Objective Vitals Vital Signs Date Time Temp Pulse Resp B/P Pulse Ox O2 Delivery O2 Flow Rate FiO2 02/27/17 12:37 3 02/27/17 08:01 98.6 95 18 132/79 96 02/27/17 04:00 97.9 95 18 131/73 95 02/27/17 00:00 98.5 100 20 114/73 97 02/26/17 20:14 97 02/26/17 20:00 98.8 95 18 132/69 98 02/26/17 16:00 98.4 106 18 138/75 97 I/O 02/26/17 02/26/17 02/26/17 02/27/17 02/27/17 02/27/17 07:00 15:00 23:00 07:00 15:00 23:00 Intake Total 0 ml 430 ml 700 ml 1229 ml Output Total 1200 ml 250 ml 150 ml Balance 0 ml -770 ml 450 ml 1079 ml Intake Oral 0 ml 380 ml 0 ml 0 ml IV Total 50 ml 700 ml 1229 ml Output Urine Total 1200 ml 250 ml 150 ml # Voids 0 # Bowel Movements 0 1 0 0 Result Diagram: 02/27/1763702/27/17637 Objective Remarks GENERAL: Patient appearing older than stated age, in no apparent distress. SKIN: Patient has multiple abrasions and skin tears involving the right elbow and feet.Left heal with an area of eschar. CARDIOVASCULAR: Normal rate and regular rhythm without murmurs, gallops, or rubs. RESPIRATORY: Good respiratory efforts. Breath sounds equal and clear to auscultation bilaterally. GASTROINTESTINAL: Abdomen soft, non-tender, non-distended. Normal active bowel sounds MUSCULOSKELETAL: Extremities without cyanosis, or edema. NEURO: Alert & Oriented x4 to person, place, time, situation. Moves all ext x4 PSYCH: Appropriate mood and affect. A/P Problem List: (1) Encephalopathy ICD Code: G93.40 Status: Acute (2) Alcohol abuse ICD Code: F10.10 Status: Acute (3) Rhabdomyolysis ICD Code: M62.82 Status: Resolved (4) Dehydration ICD Code: E86.0 Status: Acute (5) Anemia ICD Code: D64.9 Status: Acute (6) COPD (chronic obstructive pulmonary disease) ICD Code: J44.9 Status: Chronic (7) CHF (congestive heart failure) ICD Code: I50.9 Status: Acute (8) DM (diabetes mellitus) ICD Code: E11.9 Status: Chronic (9) Tobacco abuse ICD Code: Z72.0 Status: Acute Assessment and Plan 56 Y/O male with: Acute Encephalopathy: Found down by Landlord in his apartment, estimated down for 2-3 days. Probably related to alcohol intoxication. CT Head w/ old infarct , no acute ischemia noted. No signs of sepsis/infection. Significant dehydration on admission. Recent admit 12/31-01/31/17 w/ Encephalopathy likely secondary to Alcohol Withdrawal, MRI Brain 01/13/17 negative, MRI Brain 01/20/17 left frontal/temporal encephalomalacia, EEG moderate to severe encephalopathy. Currently awake, oriented to person/place. -Still very physically deconditioned. Physical therapy following. Nausea and vomiting, bloody emesis. Constipation. - Appreciate GI following. Status post EGD which revealed multiple clean-based duodenal ulcers, esophagitis. No active bleeding PPI, avoid NSAIDs. Patient thoroughly counseled regarding not to drink anymore alcohol. - Advance to soft diet. Alcohol Abuse: Per report, drinks 2 Vodka/day, last drink approx 2 days ago, no tremors. Seizure Precautions, CIWA, MVT/Thiamine/Folate replacement. Patient was counseled regarding the need for abstinence. Rhabdomyolysis Metabolic acidosis 2/2 EtOH use, DM. Elevated Beta hydroxybutirate. CPK 1816 on admission. Trending down. Nephrology followed the patient. Metabolic acidosis resolved. Patient is still physically debilitated. Diastolic CHF: Chronic. Diastolic. Echo 01/09/17 w/ EF 55-60%, Grade 2 Diastolic Dysfunction. No evidence of fluid overload. Will monitor. Anemia: Hgb 4.5, on presentation ? Lab error. Repeat labs w/ Hgb 9.8. Will monitor. No need for transfusion at this time. COPD. Chronic Respiratory Failure. Stable. DuoNeb prn. Monitor VS. DM: Hold Metformin/Janumet in light of significant dehydration and decreased PO intake x2 days. Sliding scale w/ Accu-Cheks. Hemoglobin A1c of 6.5. Diabetic diet Tobacco Abuse: Ativan/NicoDerm prn if needed. DVT Prophylaxis: SCD/Teds. Discharge Planning Patient physically deconditioned. Podiatry will do bedside debridement of left foot lesion today. Will need home health with PT. Anticipate discharge in the next couple of days. Problem Qualifiers (1) Rhabdomyolysis: Qualified Code: M62.82 - Non-traumatic rhabdomyolysis Maggie Francisco MD February 27, 2017 14:41
--- NOTE | 2017-02-27 18:29 | PD.CONS ---
History of Present Illness Service Podiatry Consult Requested By Reason for Consult L heel ulcer Primary Care Physician Unknown Diagnoses: History of Present Illness Patient relates approx 9 mos history of L heel ulcer. He thinks it is getting worse. He complains of minimal pain to the area, but knows there is dark tissue present and is concerned. Past Family Social History Allergies: Coded Allergies: Toradol (Verified Allergy, Intermediate, Headache, 01/31/17) *MDRO Multi-Drug Resistant Organism (Verified Adverse Reaction, Unknown, ) ESBL K. pneumoniae (sputum) - 01/14/17 Past Medical History Anxiety, Depression, COPD, HTN, CHF (Echo 01/09/17 w/ EF 55-60%, Grade 2 Diastolic Dysfunction), Alcohol Abuse and Tobacco Abuse Past Surgical History Splenectomy, RLE Brought the Mandible Surgery Active Ordered Medications Current Medications Medications (Trade) Dose Ordered Sig/Rip Route Start Time Stop Time Status Last Admin Multivitamins 10 ml/Folic Acid 1 mg/Sodium Chloride 510.2 ml @ 125 mls/hr Q24H IV 02/24/17 22:00 03/01/17 21:59 02/26/17 22:32 (Thiamine Inj/NS Inj) 101 ml @ 100 mls/hr Q24H IV 02/24/17 22:00 02/27/17 21:59 02/26/17 21:20 (Vitamin B1) 100 mg DAILY PO 02/28/17 09:00 (Romazicon Inj) 0.2 mg Q1M PRN IV PUSH 02/24/17 20:30 (Ativan) 1 mg Q4H PRN PO 02/24/17 20:30 (Ativan Inj) 1 mg Q4H PRN IV PUSH 02/24/17 20:30 (Ativan) 2 mg Q2H PRN PO 02/24/17 20:30 (Ativan Inj) 2 mg Q2H PRN IV PUSH 02/24/17 20:30 (Ativan Inj) 2 mg Q1H PRN IV PUSH 02/24/17 20:30 (Ativan Inj) 2 mg Q15M PRN IV PUSH 02/24/17 20:30 (Haldol Inj) 2 mg Q15M PRN IM 02/24/17 20:30 (NS Flush) 2 ml UNSCH PRN IV FLUSH 02/24/17 20:30 02/27/17 00:10 (NS Flush) 2 ml BID IV FLUSH 02/24/17 21:00 02/27/17 09:21 (Zofran Inj) 4 mg Q6H PRN IVP 02/24/17 20:30 02/27/17 00:09 (Tylenol) 650 mg Q6H PRN PO 02/24/17 20:30 02/26/17 18:31 (Morphine Inj) 1 mg Q3H PRN IV 02/24/17 20:30 (Roxicodone) 5 mg Q4H PRN PO 02/24/17 20:30 02/27/17 16:26 (Frida-Colace) 1 tab BID PO 02/24/17 21:00 02/27/17 09:21 (Milk Of Magnesia Liq) 30 ml Q12H PRN PO 02/24/17 20:30 (Senokot) 17.2 mg Q12H PRN PO 02/24/17 20:30 (Dulcolax Supp) 10 mg DAILY PRN RECTAL 02/24/17 20:30 (Lactulose Liq) 30 ml DAILY PRN PO 02/24/17 20:30 (D50w (Vial) Inj) 50 ml UNSCH PRN IV 02/24/17 20:45 (Glucagon Inj) 1 mg UNSCH PRN OTHER 02/24/17 20:45 (Protonix) 40 mg DAILY PO 02/27/17 09:00 02/27/17 09:21 Social History 2 Vodka drinks daily per report. Smokes 1/2-1ppd. +Marijuana. Physical Exam Vital Signs Vital Signs Date Time Temp Pulse Resp B/P Pulse Ox O2 Delivery O2 Flow Rate FiO2 02/27/17 17:30 20 02/27/17 08:01 98.6 95 18 132/79 96 02/27/17 04:00 97.9 95 18 131/73 95 02/27/17 00:00 98.5 100 20 114/73 97 02/26/17 20:14 97 02/26/17 20:00 98.8 95 18 132/69 98 Physical Exam L plantar heel with 2cm diameter eschar noted. Not boggy. No purulence noted. No drainage. No erythema locally. Palpable pedal pulses. Warm skin temperature Laboratory Laboratory Tests Test 02/27/17 06:38 White Blood Count 12.1 Red Blood Count 2.72 Hemoglobin 8.4 Hematocrit 25.8 Mean Corpuscular Volume 94.8 Mean Corpuscular Hemoglobin 31.0 Mean Corpuscular Hemoglobin 32.7 Concent Red Cell Distribution Width 14.7 Platelet Count 487 Mean Platelet Volume 8.9 Sodium Level 140 Potassium Level 3.5 Chloride Level 104 Carbon Dioxide Level 27.7 Anion Gap 8 Blood Urea Nitrogen 10 Creatinine 0.68 Estimat Glomerular Filtration 121 Rate Random Glucose 160 Calcium Level 8.3 Total Creatine Kinase 199 Result Diagram: 02/27/17 0638 02/27/17 0638 Imaging Last Impressions Abdomen X-Ray 02/25/17 0000 Signed Impressions: Service Date/Time: Saturday, February 25, 2017 12:30 - CONCLUSION: No acute abdominal abnormality is identified. Pk Abreu MD Head CT 02/24/17 1819 Signed Impressions: Service Date/Time: Friday, February 24, 2017 18:54 - CONCLUSION: 1. Old left frontal infarct. 2. No acute infarct, acute hemorrhage, mass effect or extra-axial fluid collections. Christian Antoine MD Assessment and Plan Assessment and Plan L heel ulcer, stable Continue to offload at all time when in bed. Plan to debride bedside and local wound care to follow. Ordered materials to be bedside for debridement likely tomorrow. Danis Waterman DPM February 27, 2017 18:29
[2017-02-27] MEDS: MULTIVITAMIN INJ 10 ML, FOLIC ACID INJ 1 MG in SODIUM CHLORID 0.9% 500 ML INJ 500 ML IV SCH (21:03)
[2017-02-27] MEDS: THIAMINE INJ 100 MG in SODIUM CHLORIDE 0.9% INJ 100 ML IV SCH (22:21)
[2017-02-28] VITALS (7 sets, daily range): BP systolic 106–133; BP diastolic 59–76; PULSE 95–112; RESP 16–18; TEMP 98.3–99.2; O2SAT 95–98
[2017-02-28] MEDS: INSULIN ASPART SUPPLEMENTAL SCALE SQ SCH ×4 (06:22→21:10)
[2017-02-28 06:58] LABS: MEAN CORPUSCULAR HEMOGLOBIN 32.4 PG (27.0-34.0); MEAN CORPUSCULAR HGB CONC 34.9 % (32.0-36.0); PLATELET COUNT 506 TH/MM3 (150-450); RED BLOOD COUNT 2.69 MIL/MM3 (4.50-5.90); RED CELL DISTRIBUTION WIDTH 14.7 % (11.6-17.2); REVIEW FLAG FINAL; WHITE BLOOD COUNT 11.9 TH/MM3 (4.0-11.0)
[2017-02-28 07:15] LABS: BICARBONATE 26.1 MEQ/L (21.0-32.0); POTASSIUM 3.6 MEQ/L (3.5-5.1)
[2017-02-28] MEDS: THIAMINE HCL 100 MG TAB PO SCH (08:26)
[2017-02-28] MEDS: PANTOPRAZOLE SOD 40 MG DELAYED RELEASE TAB PO SCH (08:26)
[2017-02-28] MEDS: SODIUM CHLORIDE 0.9% FLUSH 10 ML FLUSH IV FLUSH SCH ×2 (08:27→21:07)
[2017-02-28] MEDS: DOCUSATE SODIUM 50 MG/SENNA 8.6 MG TAB PO SCH ×2 (08:59→21:00)
[2017-02-28] MEDS ORDERED: WALKER WHEELS/F1 MIS (14:54)
--- NOTE | 2017-02-28 14:55 | HHI.FF ---
Face to Face Verification Diagnosis: (1) Alcoholism (2) Alcohol abuse (3) Encephalopathy (4) Liver disease Physical Therapy Order: Evaluate and Treat I have seen patient Adi Israel on 02/28/17. My clinical findings support the need for the requested home health care services because: Limited ability to care for self Impaired cognition/judgement I certify that my clinical findings support that this patient is homebound because: Impaired cognitive ability/safety Unsteady gait/balance Crispin Barros MD Feb 28, 2017 14:55
--- NOTE | 2017-02-28 15:54 | HHI.PR ---
Subjective Remarks Follow-up for encephalopathy Patient be seen by physical therapy, encephalopathy resolved. Oriented, denies any chest pain or shortness of breath. Good oral intake. Objective Vitals Vital Signs Date Time Temp Pulse Resp B/P Pulse Ox O2 Delivery O2 Flow Rate FiO2 02/28/17 12:00 99.1 104 18 108/59 96 02/28/17 08:00 98.4 112 16 106/69 95 02/28/17 08:00 102 02/28/17 04:45 98.3 97 18 129/70 98 02/27/17 23:47 98.8 98 18 113/72 96 02/27/17 20:56 98.4 110 18 120/68 94 02/27/17 20:00 111 02/27/17 17:30 20 02/27/17 16:01 99.2 99 18 132/78 97 I/O 02/27/17 02/27/17 02/27/17 02/28/17 02/28/17 02/28/17 07:00 15:00 23:00 07:00 15:00 23:00 Intake Total 1229 ml 360 ml 1938 ml 650 ml Output Total 150 ml 1200 ml 500 ml 600 ml Balance 1079 ml -840 ml 1438 ml 50 ml Intake Oral 0 ml 360 ml 720 ml 0 ml IV Total 1229 ml 1218 ml 650 ml Output Urine Total 150 ml 1200 ml 500 ml 600 ml # Bowel Movements 0 1 0 0 Result Diagram: 02/28/1761202/28/17612 Objective Remarks GENERAL: Patient appearing older than stated age, in no apparent distress. SKIN: Patient has multiple abrasions and skin tears involving the right elbow and feet.Left heal with an area of eschar. CARDIOVASCULAR: Normal rate and regular rhythm without murmurs, gallops, or rubs. RESPIRATORY: Good respiratory efforts. Breath sounds equal and clear to auscultation bilaterally. GASTROINTESTINAL: Abdomen soft, non-tender, non-distended. Normal active bowel sounds MUSCULOSKELETAL: Extremities without cyanosis, or edema. NEURO: Alert & Oriented x4 to person, place, time, situation. Moves all ext x4 A/P Problem List: (1) Encephalopathy ICD Code: G93.40 Status: Acute (2) Alcohol abuse ICD Code: F10.10 Status: Acute (3) Rhabdomyolysis ICD Code: M62.82 Status: Resolved (4) Dehydration ICD Code: E86.0 Status: Acute (5) Anemia ICD Code: D64.9 Status: Acute (6) COPD (chronic obstructive pulmonary disease) ICD Code: J44.9 Status: Chronic (7) CHF (congestive heart failure) ICD Code: I50.9 Status: Acute (8) DM (diabetes mellitus) ICD Code: E11.9 Status: Chronic (9) Tobacco abuse ICD Code: Z72.0 Status: Acute Assessment and Plan 56 Y/O male with: Acute Encephalopathy: Found down by Landlord in his apartment, estimated down for 2-3 days. Probably related to alcohol intoxication. CT Head w/ old infarct , no acute ischemia noted. No signs of sepsis/infection. Significant dehydration on admission. Recent admit 12/31-01/31/17 w/ Encephalopathy likely secondary to Alcohol Withdrawal, MRI Brain 01/13/17 negative, MRI Brain 01/20/17 left frontal/temporal encephalomalacia, EEG moderate to severe encephalopathy. Currently awake, oriented to person/place. At the physical therapy because of deconditioning. Left heel ulcer-podiatry consulted, for debridement today, discharge tomorrow after cleared by podiatry. Nausea and vomiting, bloody emesis. Constipation. - Appreciate GI following. Status post EGD which revealed multiple clean-based duodenal ulcers, esophagitis. No active bleeding PPI, avoid NSAIDs. Patient thoroughly counseled regarding not to drink anymore alcohol. - Advance to soft diet. Alcohol Abuse: Per report, drinks 2 Vodka/day, last drink approx 2 days ago, no tremors. Seizure Precautions, CIWA, MVT/Thiamine/Folate replacement. Patient was counseled regarding the need for abstinence. Rhabdomyolysis Metabolic acidosis 2/2 EtOH use, DM. Elevated Beta hydroxybutirate. Nephrology followed the patient. Metabolic acidosis and rhabdomyolysis resolved. Diastolic CHF: Chronic. Diastolic. Echo 01/09/17 w/ EF 55-60%, Grade 2 Diastolic Dysfunction. No evidence of fluid overload. Will monitor. Anemia: Hgb 4.5, on presentation ? Lab error. Repeat labs w/ Hgb 9.8. Will monitor. No need for transfusion at this time. COPD. Chronic Respiratory Failure. Stable. DuoNeb prn. Monitor VS. DM: Hold Metformin/Janumet in light of significant dehydration and decreased PO intake x2 days. Sliding scale w/ Accu-Cheks. Hemoglobin A1c of 6.5. Diabetic diet Tobacco Abuse: Ativan/NicoDerm prn if needed. DVT Prophylaxis: SCD/Teds. Discharge Planning Discharge tomorrow if cleared by podiatry. Problem Qualifiers (1) Rhabdomyolysis: Qualified Code: M62.82 - Non-traumatic rhabdomyolysis Crispin Barros MD Feb 28, 2017 15:54
[2017-02-28] MEDS: MULTIVITAMIN INJ 10 ML, FOLIC ACID INJ 1 MG in SODIUM CHLORID 0.9% 500 ML INJ 500 ML IV SCH (21:13)
--- NOTE | 2017-03-01 00:16 | PD.POD ---
Subjective Podiatric Problems L heel ulcer Past Med/Surg/Social History Social History Smoking Status: Current Every Day Smoker Objective Vital Signs Vital Signs Date Time Temp Pulse Resp B/P Pulse Ox O2 Delivery O2 Flow Rate FiO2 02/28/17 23:18 98.6 101 16 121/76 97 02/28/17 20:53 99.2 95 16 133/75 96 02/28/17 16:00 98.8 105 16 130/73 97 02/28/17 12:00 99.1 104 18 108/59 96 02/28/17 08:00 98.4 112 16 106/69 95 02/28/17 08:00 102 02/28/17 04:45 98.3 97 18 129/70 98 Coded Allergies: Toradol (Verified Allergy, Intermediate, Headache, 01/31/17) *MDRO Multi-Drug Resistant Organism (Verified Adverse Reaction, Unknown, ) ESBL K. pneumoniae (sputum) - 01/14/17 Physical Exam Remarks L plantar heel ulcer with eschar present, stable, not boggy. No purulence. No erythema. 3cm x 2.5cm Assessment & Plan A/P L heel ulcer. Excisional debridement performed L heel with #15 blade of all necrotic tissue down to healthy subcutaneous tissue. Ordered santyl dressing daily and offloading L heel. No further treatment planned. Follow up with Dr Leblanc in clinic upon Danis Chairez DPM Mar 01, 2017 00:16
[2017-03-01 04:20] VITALS: BP 109/65; PULSE 97; RESP 18; TEMP 98.5; O2SAT 96
[2017-03-01] MEDS: INSULIN ASPART SUPPLEMENTAL SCALE SQ SCH (06:25)
[2017-03-01 08:00] VITALS: BP 136/65; PULSE 101; RESP 18; TEMP 99.2; O2SAT 97
[2017-03-01] MEDS: THIAMINE HCL 100 MG TAB PO SCH (08:20)
[2017-03-01] MEDS: PANTOPRAZOLE SOD 40 MG DELAYED RELEASE TAB PO SCH (08:20)
[2017-03-01] MEDS: SODIUM CHLORIDE 0.9% FLUSH 10 ML FLUSH IV FLUSH SCH (08:21)
[2017-03-01] MEDS: DOCUSATE SODIUM 50 MG/SENNA 8.6 MG TAB PO SCH (08:22)
[2017-03-01] MEDS ORDERED: COLLAGENASE OINT 30 GM TUBE TOPICAL SCH (09:00)
--- NOTE | 2017-03-01 09:05 | HHI.DS ---
Discharge Summary Admission Date February 24, 2017 at 20:12 Discharge Date: Mar 01, 2017 Admitting Diagnosis rhabdomyolysis, dehydration (1) Encephalopathy ICD Code: G93.40 Diagnosis: Principal (2) Alcohol abuse ICD Code: F10.10 (3) Rhabdomyolysis ICD Code: M62.82 (4) Dehydration ICD Code: E86.0 (5) Anemia ICD Code: D64.9 (6) COPD (chronic obstructive pulmonary disease) ICD Code: J44.9 (7) CHF (congestive heart failure) ICD Code: I50.9 (8) DM (diabetes mellitus) ICD Code: E11.9 (9) Tobacco abuse ICD Code: Z72.0 Procedures None Brief History - From Admission This is a 56-year-old male with a PMH of Anxiety, Depression, COPD, HTN, CHF ( Echo 01/09/17 w/ EF 55-60%, Grade 2 Diastolic Dysfunction), Alcohol Abuse and Tobacco Abuse who was brought to the ER by EMS w/ AMS after being found down in apartment by Landlord. Per EMS, pt found lying on the floor between bed and night stand, covered in urine and feces, estimated time down 2-3 days. Pt states he works at [employer] and believes he was found down "at the club". Unable to get more information, except notes he hasn't had a drink in 2 days. On arrival, BP 136/90, HR 104, O2 sat 96% on RA, Afebrile. WBC 12.4. Initial Hgb 4.5, however repeat Hgb 9.8. AG 21. BUN 28. GFR 69. Lactic Acid normal at 1.2. LFTs mildly elevated. CPK 1816. Troponin negative. Ammonia 18. INR 0.9. UA negative. Urine Drug Screen positive for Opiates and Marijuana. Beta hydroxy elevated. 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 Recent admit 12/31-01/31/17 w/ prolonged hospitalization secondary to Chronic Left Foot Osteomyelitis, Sepsis, Acute Respiratory Failure/ARDS requiring Intubation, Aspiration PNA s/p IV Abx and BIMAL. [facility], recently d/c'd home from Rehab per report. CBC/BMP: 02/28/17 0613 02/28/17 0613 Significant Findings Laboratory Tests Test 02/27/17 02/28/17 06:38 06:13 White Blood Count 12.1 TH/MM3 11.9 TH/MM3 (4.0-11.0) (4.0-11.0) Red Blood Count 2.72 MIL/MM3 2.69 MIL/MM3 (4.50-5.90) (4.50-5.90) Hemoglobin 8.4 GM/DL 8.7 GM/DL (13.0-17.0) (13.0-17.0) Hematocrit 25.8 % 25.0 % (39.0-51.0) (39.0-51.0) Platelet Count 487 TH/MM3 506 TH/MM3 (150-450) (150-450) Random Glucose 160 MG/DL 168 MG/DL (74-106) (74-106) Calcium Level 8.3 MG/DL 7.9 MG/DL (8.5-10.1) (8.5-10.1) PE at Discharge GENERAL: Patient appearing older than stated age, in no apparent distress. SKIN: Patient has multiple abrasions and skin tears involving the right elbow and feet.Left heal with an area of eschar. CARDIOVASCULAR: Normal rate and regular rhythm without murmurs, gallops, or rubs. RESPIRATORY: Good respiratory efforts. Breath sounds equal and clear to auscultation bilaterally. GASTROINTESTINAL: Abdomen soft, non-tender, non-distended. Normal active bowel sounds MUSCULOSKELETAL: Extremities without cyanosis, or edema. NEURO: Alert & Oriented x4 to person, place, time, situation. Moves all ext x4 Pt update on day of discharge No overnight events. Status post debridement of heel ulcer yesterday. Pain is controlled. Feels weak, prefers to go to rehabilitation. Hospital Course 56 Y/O male found down by his landlord in his apartment likely related to all: Intoxication. CT scan of the head was unremarkable other than old infarct. There were no signs of infection but there was dehydration on admission. Patient was thought to have encephalopathy secondary to alcohol intoxication and subsequent withdrawal. EEG moderate to severe encephalopathy. While patient was in the hospital, patient also had questionable bloody emesis. GI was consulted status post EGD which revealed multiple clean-based 10 ulcers and esophagitis. Patient will continue PPIs, NSAIDs need to be avoided including alcohol intake. Patient also had a left heel ulcer, podiatry was consulted, patient status post debridement. Patient will be discharged to follow-up with podiatry, he will continue sentinel and wound care. Patient also rhabdomyolysis and metabolic acidosis on admission which resolved with volume resuscitation. Finally, since his diabetes has been controlled with hemoglobin A1c of 6.5, glimepiride was stopped. He will continue in sitaglipitin and metformin. Pt Condition on Discharge: Good Discharge Disposition: Disch w/ Home Health Serv Discharge Time: > 30 minutes Discharge Instructions DIET: Follow Instructions for: Heart Healthy Diet Activities you can perform: Regular-No Restrictions Follow up Referrals: Podiatry - 2 Weeks SNF/[facility]/ with [facility] at Home New Medications: Walker with Front Wheels (Walker with Front Wheels) 1 Mis Mis 1 EA .ROUTE DIRECTED #1 Ref 0 EA Collagenase (Santyl) 250 Unit/Gm Oin 1 APPLIC TOPICAL DAILY wound Days 30 TUBE Pantoprazole (Pantoprazole) 40 Mg Tab 40 MG PO DAILY esophagitis #30 TAB Sennosides-Docusate Sodium (Senna Plus 8.6-50 mg) 1 Tab Tab 1 TAB PO BID constipation #60 TAB Thiamine HCl (Gnp Vitamin B-1) 100 Mg Tab 100 MG PO DAILY encephalopathy #30 TAB Continued Medications: Pregabalin (Lyrica) 300 Mg Cap 300 MG PO BID #60 Ref 0 CAP Quetiapine (Quetiapine) 400 Mg Tab 400 MG PO HS #30 Ref 0 TAB Sitagliptin-Metformin (Janumet) 50-1,000 Mg Tab 1 TAB PO BID Blood Sugar Management #60 Ref 0 TAB Discontinued Medications: Glimepiride (Glimepiride) 4 Mg Tab 4 MG PO BID Blood Sugar Management #60 Ref 0 TAB Lisinopril (Lisinopril) 5 Mg Tab 5 MG PO DAILY Blood Pressure Management #30 Ref 0 TAB Crispin Barros MD Mar 01, 2017 09:05
[2017-03-01] MEDS ORDERED: SENN1TAB PO (09:08)
[2017-03-01] MEDS ORDERED: COLL30T TOPICAL (09:08)
[2017-03-01] MEDS ORDERED: GNP100TA3 PO (09:08)
[2017-03-01] MEDS ORDERED: PANT40TA3 PO (09:08)
== END 2017-03-01 12:45 | DRG 981 ==
LOC: NEPC 18:03 → NEDA 20:12 → N04A 21:24
PROVIDERS: ADMIT Hospitalist; ATTEND Hospitalist
PROC: 0DB68ZX Excision of Stomach, Via Natural or Artificial Opening Endoscopic, Diagnostic (ICD-10-PCS; 2017-02-26)
PROC: 0HBNXZZ Excision of Left Foot Skin, External Approach (ICD-10-PCS; principal; 2017-03-01)
DX: F10.239 Alcohol dependence with withdrawal, unspecified (principal); G93.40 Encephalopathy, unspecified; J96.10 Chronic respiratory failure, unspecified whether with hypoxia or hypercapnia; E13.10 Other specified diabetes mellitus with ketoacidosis without coma; K26.9 Duodenal ulcer, unspecified as acute or chronic, without hemorrhage or perforation; I50.32 Chronic diastolic (congestive) heart failure; M62.82 Rhabdomyolysis; L97.429 Non-pressure chronic ulcer of left heel and midfoot with unspecified severity; I11.0 Hypertensive heart disease with heart failure; E11.621 Type 2 diabetes mellitus with foot ulcer; E86.0 Dehydration; D64.9 Anemia, unspecified; J44.9 Chronic obstructive pulmonary disease, unspecified; F17.210 Nicotine dependence, cigarettes, uncomplicated; F41.9 Anxiety disorder, unspecified; F32.9 Major depressive disorder, single episode, unspecified; K57.30 Diverticulosis of large intestine without perforation or abscess without bleeding; F10.129 Alcohol abuse with intoxication, unspecified; K59.00 Constipation, unspecified; F10.229 Alcohol dependence with intoxication, unspecified; Y90.0 Blood alcohol level of less than 20 mg/100 ml; K20.9 Esophagitis, unspecified; Z79.84 Long term (current) use of oral hypoglycemic drugs
CPT/HCPCS: 36600; 70450; 74000; 80048; 80053; 80307; 81001; 82010; 82140; 82550; 82552; 82805; 82948; 83036; 83540; 83550; 83605; 83735; 84484; 85025; 85027; 85610; 85730; 86850; 86900; 86901; 86920; 88305; 88312; 93005; 96374; J1815; J2405; J3411; J7030; J7040

== ENCOUNTER 2017-08-17 16:36 | Emergency (ER) | payer MEDICARE, MEDICAID ==
[~2017-08-17 16:36] MED LIST changes: -ACET325T PO; -ASPI1TAB69 PO; +COLL30T TOPICAL; -FOLI1TAB4 PO; -LISI-519 PO; -MIRA33504 PO; +PANT40TA3 PO; +QUET400T PO; +SENN1TAB PO; +THIA100 PO; -VITA100T2 PO; +WALKER WHEELS/F1 MIS
== END 2017-08-17 16:49 | disposition left against medical advice (07) ==
LOC: NED 16:36
DX: M54.9 Dorsalgia, unspecified (principal); Z53.21 Procedure and treatment not carried out due to patient leaving prior to being seen by health care provider
CPT/HCPCS: 99281

== ENCOUNTER 2018-10-03 12:24 | Observation (INO) ==
--- NOTE | 2018-10-03 12:55 | ED ---
HPI General Chief Complaint: Altered Mental Status Stated Complaint: Medical Time Seen by Provider: 10/03/18 12:40 Source: patient Mode of arrival: EMS History of Present Illness HPI narrative: Patient is a 57-year-old male with a history of diabetes mellitus, EtOH abuse, esophagitis, and acute kidney failure, brought to the emergency room via EMS for altered mental status. Patient reportedly was homeless until a week ago. He now has a home and has been getting home health nurse visits due to open wounds on bilateral feet as well as a coccyx ulcer. Home health nurse came today to see the patient and found him to be altered, alert, but not responding normally. EMS states they did find two 1.75 L empty bottles of rum and whiskey in the patient's living space. Glucose 84 per EMS. EKG normal sinus rhythm per EMS. Patient afebrile, normotensive, pulse 87. Per [facility] pt had GCS 15, however, on arrival GCS 12. He is alert but not answering questions so HPI limited. Related Data Home Medications Medication Instructions Recorded Confirmed escitalopram oxalate [Lexapro] 10 mg PO DAILY 10/03/18 10/03/18 oxycodone 10 mg PO TID 10/03/18 10/03/18 pregabalin [Lyrica] 300 mg PO BID 10/03/18 10/03/18 quetiapine [Seroquel] 400 mg PO HS 10/03/18 10/03/18 sitagliptin-metformin [Janumet] 1 tab PO BID 10/03/18 10/03/18 Allergies Allergy/AdvReac Type Severity Reaction Status Date / Time No Known Allergies Allergy Verified 10/03/18 15:38 Review of Systems ROS Unobtainable ROS Unobtainable: unobtainable due to mental status PMFSH Medical History Medical History Alcohol abuse (Acute) Diabetes (Acute) Esophagitis (Acute) Social History Social History Substance History: Unable to Obtain Second Hand Smoke Exposure: No Smoking Status: Current every day smoker Tobacco Type: Cigarettes How Often Do You Have a Drink Containing Alcohol: 4 or more times a week Recent Travel in [facility] within the Last 8 Weeks: No Recent Out of Country Travel within the Last 8 Weeks: No Exam Narrative Exam Narrative: GENERAL: Patient alert but not answering questions. Cooperative with exam. Unkempt. SKIN: macular rash on chest. 2x1 cm ulceration on Left fifth toe/ 1x1 cm ulceration on right fifth toe/[id number] ulceration to coccyx. HEAD: Atraumatic. Normocephalic. EYES: Pupils equal and round. No scleral icterus. No injection or drainage. ENT: No nasal bleeding or discharge. Mucous membranes pink and moist. NECK: Trachea midline. No JVD. CARDIOVASCULAR: Regular rate and rhythm. No murmur appreciated. RESPIRATORY: No accessory muscle use. Clear to auscultation. Breath sounds equal bilaterally. GASTROINTESTINAL: Abdomen soft, non-tender, nondistended. Hepatic and splenic margins not palpable. MUSCULOSKELETAL: No obvious deformities. No clubbing. No cyanosis. No edema. NEUROLOGICAL: Awake and alert. No obvious cranial nerve deficits. Motor grossly within normal limits. Pt responding verbally minimally. PSYCHIATRIC: Alert but not answering questions. Follows commands. Course Initial Documented Vital Signs Temperature 98.5 F 10/03/18 12:35 Pulse Rate 82 10/03/18 12:35 Respiratory Rate 15 10/03/18 12:35 Blood Pressure 119/66 10/03/18 12:35 Pulse Oximetry 94 L 10/03/18 12:35 Last Documented Vital Signs Temperature 97.9 F 10/04/18 11:47 Pulse Rate 64 10/04/18 11:47 Respiratory Rate 12 10/04/18 11:47 Blood Pressure 133/77 10/04/18 11:47 Pulse Oximetry 96 10/04/18 11:47 Medical Decision Making KENDRICK Attestation KENDRICK supervised visit: Yes Attestation: I, Dr. Mcmullen, have reviewed the advance practice practitioner' s documentation and am in agreement, met with the patient face to face, made the diagnosis, and the medical decision making was done by me. *My assessment and Findings: The patient is a 57-year-old male who presents to the emergency department via EMS for altered mental status. The patient apparently has been living by himself for the last 1-2 weeks and was noted to be unresponsive with altered mental status cord EMS. EMS states the patient had several liquor bottles in the house which were empty and had an initial blood glucose of 88 per their report. Upon arrival the patient was altered, poor historian, and smelled of alcohol. The patient's Accu-Chek was noted to be 24, lab did call with a critical of Accu-Chek 28, the patient was administered D50 and had good response with improvement in his mentation. Alcohol level was noted to be in the 160s. The patient does have a history of diabetes and takes glipizide, did not eat this morning per his report. It was advised that the patient is on a sulfonylurea with hypoglycemia, was advised to take several meals in the hospital, and to have 23-hour observation for hypo- glycemia on a sulfonylurea. MDM Narrative Medical decision making narrative: Patient is a 57-year-old male who was brought to the emergency room by EMS for altered mental status. Patient was found by his home health nurse to be altered. He was alert but not responding to her appropriately. EMS was called.According to their assessment he was GCS of 15. BG of 84. On arrival here his GCS is 12 and therefore hx limited. NSR on monitor. SPO2 96 % on 2L/NC. Blood glucose per CMP 22. Repeat at bedside showed 27. 1 amp D [address] brain unremarkable. 13:45 Pt sitting up at edge of bed. Oriented x3. States he took Glipizide this am and did not eat. He is also on Janumet. Subsequent BS 110/78. Diet ordered. Lactic acid elevated at 3.6. Urine eng for ketones/neg nitrites/leukocytes. No leukocytosis. D51/2 NS started at 100 cc/hr. Residents paged for 23 hr obs. Discussed exam/lab findings/pt condition with Dr. Swan who accepts admission. Medical Screen Exam Complete: Yes Emergency Medical Condition: Yes Differential Diagnosis Differential Diagnosis: sepsis/alcohol intoxication/Hypoglycemia/polysubstance abuse/intracranial bleed. Lab Data Result diagrams: 10/03/18 12:44 10/04/18 06:01 Lab Results 10/03/18 10/03/18 10/03/18 Range/Units 12:44 12:44 12:44 WBC 7.7 (4.0-11.0) th/mm3 RBC 3.90 L (4.50-5.90) mil/mm3 Hgb 12.7 L (13.0-17.0) gm/dL Hct 36.8 L (39.0-51.0) % MCV 94.4 (80.0-100.0) fL MCH 32.7 (27.0-34.0) pg MCHC 34.6 (32.0-36.0) % RDW 17.3 H (11.6-17.2) % Plt Count 348 (150-450) th/mm3 MPV 8.5 (7.0-11.0) fL Neut % (Auto) 51.0 (16.0-70.0) % Lymph % (Auto) 38.0 (9.0-44.0) % [place] % (Auto) 7.4 (0.0-8.0) % Eos % (Auto) 2.8 (0.0-4.0) % Baso % (Auto) 0.8 (0.0-2.0) % Neut # (Auto) 3.9 (1.8-7.7) th/mm3 Lymph # (Auto) 2.9 (1.0-4.8) th/mm3 [place] # (Auto) 0.6 (0.0-0.9) th/mm3 Eos # (Auto) 0.2 (0.0-0.4) th/mm3 Baso # (Auto) 0.1 (0.0-0.2) th/mm3 WBC Differential . Differential Comment Auto diff final Sodium 141 (136-145) meq/L Potassium 3.9 (3.5-5.1) meq/L Chloride 106 (98-107) meq/L Carbon Dioxide 24.7 (21.0-32.0) meq/L Anion Gap 10 (5-15) meq/L BUN 22 H (7-18) mg/dL Creatinine 1.09 (0.60-1.30) mg/dL Estimated GFR 70 L (>89) mL/min POC Glucose (68-110) mg/dl Random Glucose 24 L* (74-106) mg/dL Hemoglobin A1c (4.3-6.0) % Lactic Acid (0.4-2.0) mmol/L Calcium 8.3 L (8.5-10.1) mg/dL Phosphorus (2.5-4.9) mg/dL Magnesium (1.5-2.5) mg/dL Total Bilirubin 0.3 (0.2-1.0) mg/dL AST 19 (15-37) U/L ALT 14 (12-78) U/L Alkaline Phosphatase 130 H (45-117) U/L Total Creatine Kinase 203 Cancelled (39-308) U/L Total Protein 7.9 (6.4-8.2) g/dL Albumin 3.3 L (3.4-5.0) g/dL Beta-Hydroxybutyric Acd (0.00-0.39) mmol/L Urine Color (Yellw/Straw) Urine Clarity (Clear) Urine pH (5.0-8.5) Ur Specific [place] (1.002-1.035) Urine Protein (Neg-Trace) mg/dL Urine Glucose (UA) (Negative) mg/dL Urine Ketones (Negative) mg/dL Urine Occult Blood (Negative) Urine Nitrate (Negative) Urine Bilirubin (Negative) Urine Urobilinogen (Less than 2) mg/dL Ur Leukocyte Esterase (Negative) Urine RBC (0-3) /hpf Urine WBC (0-5) /hpf Ur Squamous Epith Cells (0-5) /hpf Hyaline Casts (0-3) /lpf Micro UA Comment Ur Microscopic Review Urine Culture Comments Urine Opiates Screen (Neg) Ur Barbiturates Screen (Neg) Ur Amphetamines Screen (Neg) U Benzodiazepines Scrn (Neg) Urine Cocaine Screen (Neg) U Cannabinoids Screen (Neg) Serum Alcohol 162 H (0-5) mg/dL 10/03/18 10/03/18 10/03/18 Range/Units 12:44 12:45 12:50 WBC (4.0-11.0) th/mm3 RBC (4.50-5.90) mil/mm3 Hgb (13.0-17.0) gm/dL Hct (39.0-51.0) % MCV (80.0-100.0) fL MCH (27.0-34.0) pg MCHC (32.0-36.0) % RDW (11.6-17.2) % Plt Count (150-450) th/mm3 MPV (7.0-11.0) fL Neut % (Auto) (16.0-70.0) % Lymph % (Auto) (9.0-44.0) % [place] % (Auto) (0.0-8.0) % Eos % (Auto) (0.0-4.0) % Baso % (Auto) (0.0-2.0) % Neut # (Auto) (1.8-7.7) th/mm3 Lymph # (Auto) (1.0-4.8) th/mm3 [place] # (Auto) (0.0-0.9) th/mm3 Eos # (Auto) (0.0-0.4) th/mm3 Baso # (Auto) (0.0-0.2) th/mm3 WBC Differential Differential Comment Sodium (136-145) meq/L Potassium (3.5-5.1) meq/L Chloride (98-107) meq/L Carbon Dioxide (21.0-32.0) meq/L Anion Gap (5-15) meq/L BUN (7-18) mg/dL Creatinine (0.60-1.30) mg/dL Estimated GFR (>89) mL/min POC Glucose (68-110) mg/dl Random Glucose (74-106) mg/dL Hemoglobin A1c 6.3 H (4.3-6.0) % Lactic Acid 3.6 H (0.4-2.0) mmol/L Calcium (8.5-10.1) mg/dL Phosphorus (2.5-4.9) mg/dL Magnesium (1.5-2.5) mg/dL Total Bilirubin (0.2-1.0) mg/dL AST (15-37) U/L ALT (12-78) U/L Alkaline Phosphatase (45-117) U/L Total Creatine Kinase (39-308) U/L Total Protein (6.4-8.2) g/dL Albumin (3.4-5.0) g/dL Beta-Hydroxybutyric Acd (0.00-0.39) mmol/L Urine Color (Yellw/Straw) Urine Clarity (Clear) Urine pH (5.0-8.5) Ur Specific [place] (1.002-1.035) Urine Protein (Neg-Trace) mg/dL Urine Glucose (UA) (Negative) mg/dL Urine Ketones (Negative) mg/dL Urine Occult Blood (Negative) Urine Nitrate (Negative) Urine Bilirubin (Negative) Urine Urobilinogen (Less than 2) mg/dL Ur Leukocyte Esterase (Negative) Urine RBC (0-3) /hpf Urine WBC (0-5) /hpf Ur Squamous Epith Cells (0-5) /hpf Hyaline Casts (0-3) /lpf Micro UA Comment Ur Microscopic Review Urine Culture Comments Urine Opiates Screen Neg (Neg) Ur Barbiturates Screen Neg (Neg) Ur Amphetamines Screen Neg (Neg) U Benzodiazepines Scrn Neg (Neg) Urine Cocaine Screen Neg (Neg) U Cannabinoids Screen Neg (Neg) Serum Alcohol (0-5) mg/dL 10/03/18 10/03/18 10/03/18 Range/Units 12:50 13:28 14:02 WBC (4.0-11.0) th/mm3 RBC (4.50-5.90) mil/mm3 Hgb (13.0-17.0) gm/dL Hct (39.0-51.0) % MCV (80.0-100.0) fL MCH (27.0-34.0) pg MCHC (32.0-36.0) % RDW (11.6-17.2) % Plt Count (150-450) th/mm3 MPV (7.0-11.0) fL Neut % (Auto) (16.0-70.0) % Lymph % (Auto) (9.0-44.0) % [place] % (Auto) (0.0-8.0) % Eos % (Auto) (0.0-4.0) % Baso % (Auto) (0.0-2.0) % Neut # (Auto) (1.8-7.7) th/mm3 Lymph # (Auto) (1.0-4.8) th/mm3 [place] # (Auto) (0.0-0.9) th/mm3 Eos # (Auto) (0.0-0.4) th/mm3 Baso # (Auto) (0.0-0.2) th/mm3 WBC Differential Differential Comment Sodium (136-145) meq/L Potassium (3.5-5.1) meq/L Chloride (98-107) meq/L Carbon Dioxide (21.0-32.0) meq/L Anion Gap (5-15) meq/L BUN (7-18) mg/dL Creatinine (0.60-1.30) mg/dL Estimated GFR (>89) mL/min POC Glucose 27 L* 110 (68-110) mg/dl Random Glucose (74-106) mg/dL Hemoglobin A1c (4.3-6.0) % Lactic Acid (0.4-2.0) mmol/L Calcium (8.5-10.1) mg/dL Phosphorus (2.5-4.9) mg/dL Magnesium (1.5-2.5) mg/dL Total Bilirubin (0.2-1.0) mg/dL AST (15-37) U/L ALT (12-78) U/L Alkaline Phosphatase (45-117) U/L Total Creatine Kinase (39-308) U/L Total Protein (6.4-8.2) g/dL Albumin (3.4-5.0) g/dL Beta-Hydroxybutyric Acd (0.00-0.39) mmol/L Urine Color Straw (Yellw/Straw) Urine Clarity Clear (Clear) Urine pH 6.0 (5.0-8.5) Ur Specific [place] 1.008 (1.002-1.035) Urine Protein Negative (Neg-Trace) mg/dL Urine Glucose (UA) Negative (Negative) mg/dL Urine Ketones Negative (Negative) mg/dL Urine Occult Blood Negative (Negative) Urine Nitrate Negative (Negative) Urine Bilirubin Negative (Negative) Urine Urobilinogen Less than 2 (Less than 2) mg/dL Ur Leukocyte Esterase Negative (Negative) Urine RBC Less than 1 (0-3) /hpf Urine WBC 1 (0-5) /hpf Ur Squamous Epith Cells <1 (0-5) /hpf Hyaline Casts 1 (0-3) /lpf Micro UA Comment Cath-culture not ind Ur Microscopic Review Not Reportable Urine Culture Comments Cath-cult not ind Urine Opiates Screen (Neg) Ur Barbiturates Screen (Neg) Ur Amphetamines Screen (Neg) U Benzodiazepines Scrn (Neg) Urine Cocaine Screen (Neg) U Cannabinoids Screen (Neg) Serum Alcohol (0-5) mg/dL 10/03/18 10/03/18 10/03/18 Range/Units 14:32 15:05 16:10 WBC (4.0-11.0) th/mm3 RBC (4.50-5.90) mil/mm3 Hgb (13.0-17.0) gm/dL Hct (39.0-51.0) % MCV (80.0-100.0) fL MCH (27.0-34.0) pg MCHC (32.0-36.0) % RDW (11.6-17.2) % Plt Count (150-450) th/mm3 MPV (7.0-11.0) fL Neut % (Auto) (16.0-70.0) % Lymph % (Auto) (9.0-44.0) % [place] % (Auto) (0.0-8.0) % Eos % (Auto) (0.0-4.0) % Baso % (Auto) (0.0-2.0) % Neut # (Auto) (1.8-7.7) th/mm3 Lymph # (Auto) (1.0-4.8) th/mm3 [place] # (Auto) (0.0-0.9) th/mm3 Eos # (Auto) (0.0-0.4) th/mm3 Baso # (Auto) (0.0-0.2) th/mm3 WBC Differential Differential Comment Sodium (136-145) meq/L Potassium (3.5-5.1) meq/L Chloride (98-107) meq/L Carbon Dioxide (21.0-32.0) meq/L Anion Gap (5-15) meq/L BUN (7-18) mg/dL Creatinine (0.60-1.30) mg/dL Estimated GFR (>89) mL/min POC Glucose 78 122 H 168 H (68-110) mg/dl Random Glucose (74-106) mg/dL Hemoglobin A1c (4.3-6.0) % Lactic Acid (0.4-2.0) mmol/L Calcium (8.5-10.1) mg/dL Phosphorus (2.5-4.9) mg/dL Magnesium (1.5-2.5) mg/dL Total Bilirubin (0.2-1.0) mg/dL AST (15-37) U/L ALT (12-78) U/L Alkaline Phosphatase (45-117) U/L Total Creatine Kinase (39-308) U/L Total Protein (6.4-8.2) g/dL Albumin (3.4-5.0) g/dL Beta-Hydroxybutyric Acd (0.00-0.39) mmol/L Urine Color (Yellw/Straw) Urine Clarity (Clear) Urine pH (5.0-8.5) Ur Specific [place] (1.002-1.035) Urine Protein (Neg-Trace) mg/dL Urine Glucose (UA) (Negative) mg/dL Urine Ketones (Negative) mg/dL Urine Occult Blood (Negative) Urine Nitrate (Negative) Urine Bilirubin (Negative) Urine Urobilinogen (Less than 2) mg/dL Ur Leukocyte Esterase (Negative) Urine RBC (0-3) /hpf Urine WBC (0-5) /hpf Ur Squamous Epith Cells (0-5) /hpf Hyaline Casts (0-3) /lpf Micro UA Comment Ur Microscopic Review Urine Culture Comments Urine Opiates Screen (Neg) Ur Barbiturates Screen (Neg) Ur Amphetamines Screen (Neg) U Benzodiazepines Scrn (Neg) Urine Cocaine Screen (Neg) U Cannabinoids Screen (Neg) Serum Alcohol (0-5) mg/dL 10/03/18 10/03/18 10/03/18 Range/Units 16:51 18:01 20:13 WBC (4.0-11.0) th/mm3 RBC (4.50-5.90) mil/mm3 Hgb (13.0-17.0) gm/dL Hct (39.0-51.0) % MCV (80.0-100.0) fL MCH (27.0-34.0) pg MCHC (32.0-36.0) % RDW (11.6-17.2) % Plt Count (150-450) th/mm3 MPV (7.0-11.0) fL Neut % (Auto) (16.0-70.0) % Lymph % (Auto) (9.0-44.0) % [place] % (Auto) (0.0-8.0) % Eos % (Auto) (0.0-4.0) % Baso % (Auto) (0.0-2.0) % Neut # (Auto) (1.8-7.7) th/mm3 Lymph # (Auto) (1.0-4.8) th/mm3 [place] # (Auto) (0.0-0.9) th/mm3 Eos # (Auto) (0.0-0.4) th/mm3 Baso # (Auto) (0.0-0.2) th/mm3 WBC Differential Differential Comment Sodium Cancelled (136-145) meq/L Potassium Cancelled (3.5-5.1) meq/L Chloride Cancelled (98-107) meq/L Carbon Dioxide Cancelled (21.0-32.0) meq/L Anion Gap Cancelled (5-15) meq/L BUN Cancelled (7-18) mg/dL Creatinine Cancelled (0.60-1.30) mg/dL Estimated GFR Cancelled (>89) mL/min POC Glucose 243 H 187 H (68-110) mg/dl Random Glucose Cancelled (74-106) mg/dL Hemoglobin A1c (4.3-6.0) % Lactic Acid (0.4-2.0) mmol/L Calcium Cancelled (8.5-10.1) mg/dL Phosphorus (2.5-4.9) mg/dL Magnesium (1.5-2.5) mg/dL Total Bilirubin (0.2-1.0) mg/dL AST (15-37) U/L ALT (12-78) U/L Alkaline Phosphatase (45-117) U/L Total Creatine Kinase (39-308) U/L Total Protein (6.4-8.2) g/dL Albumin (3.4-5.0) g/dL Beta-Hydroxybutyric Acd (0.00-0.39) mmol/L Urine Color (Yellw/Straw) Urine Clarity (Clear) Urine pH (5.0-8.5) Ur Specific [place] (1.002-1.035) Urine Protein (Neg-Trace) mg/dL Urine Glucose (UA) (Negative) mg/dL Urine Ketones (Negative) mg/dL Urine Occult Blood (Negative) Urine Nitrate (Negative) Urine Bilirubin (Negative) Urine Urobilinogen (Less than 2) mg/dL Ur Leukocyte Esterase (Negative) Urine RBC (0-3) /hpf Urine WBC (0-5) /hpf Ur Squamous Epith Cells (0-5) /hpf Hyaline Casts (0-3) /lpf Micro UA Comment Ur Microscopic Review Urine Culture Comments Urine Opiates Screen (Neg) Ur Barbiturates Screen (Neg) Ur Amphetamines Screen (Neg) U Benzodiazepines Scrn (Neg) Urine Cocaine Screen (Neg) U Cannabinoids Screen (Neg) Serum Alcohol (0-5) mg/dL 10/03/18 10/03/1819 Range/Units 20:13 22:59 06:01 WBC (4.0-11.0) th/mm3 RBC (4.50-5.90) mil/mm3 Hgb (13.0-17.0) gm/dL Hct (39.0-51.0) % MCV (80.0-100.0) fL MCH (27.0-34.0) pg MCHC (32.0-36.0) % RDW (11.6-17.2) % Plt Count (150-450) th/mm3 MPV (7.0-11.0) fL Neut % (Auto) (16.0-70.0) % Lymph % (Auto) (9.0-44.0) % [place] % (Auto) (0.0-8.0) % Eos % (Auto) (0.0-4.0) % Baso % (Auto) (0.0-2.0) % Neut # (Auto) (1.8-7.7) th/mm3 Lymph # (Auto) (1.0-4.8) th/mm3 [place] # (Auto) (0.0-0.9) th/mm3 Eos # (Auto) (0.0-0.4) th/mm3 Baso # (Auto) (0.0-0.2) th/mm3 WBC Differential Differential Comment Sodium 135 L (136-145) meq/L Potassium 3.9 (3.5-5.1) meq/L Chloride 102 (98-107) meq/L Carbon Dioxide 26.6 (21.0-32.0) meq/L Anion Gap 6 (5-15) meq/L BUN 23 H (7-18) mg/dL Creatinine 1.23 (0.60-1.30) mg/dL Estimated GFR 61 L (>89) mL/min POC Glucose 157 H (68-110) mg/dl Random Glucose 174 H D (74-106) mg/dL Hemoglobin A1c (4.3-6.0) % Lactic Acid 0.8 (0.4-2.0) mmol/L Calcium 8.3 L (8.5-10.1) mg/dL Phosphorus 3.0 (2.5-4.9) mg/dL Magnesium 2.0 (1.5-2.5) mg/dL Total Bilirubin (0.2-1.0) mg/dL AST (15-37) U/L ALT (12-78) U/L Alkaline Phosphatase (45-117) U/L Total Creatine Kinase (39-308) U/L Total Protein (6.4-8.2) g/dL Albumin (3.4-5.0) g/dL Beta-Hydroxybutyric Acd (0.00-0.39) mmol/L Urine Color (Yellw/Straw) Urine Clarity (Clear) Urine pH (5.0-8.5) Ur Specific [place] (1.002-1.035) Urine Protein (Neg-Trace) mg/dL Urine Glucose (UA) (Negative) mg/dL Urine Ketones (Negative) mg/dL Urine Occult Blood (Negative) Urine Nitrate (Negative) Urine Bilirubin (Negative) Urine Urobilinogen (Less than 2) mg/dL Ur Leukocyte Esterase (Negative) Urine RBC (0-3) /hpf Urine WBC (0-5) /hpf Ur Squamous Epith Cells (0-5) /hpf Hyaline Casts (0-3) /lpf Micro UA Comment Ur Microscopic Review Urine Culture Comments Urine Opiates Screen (Neg) Ur Barbiturates Screen (Neg) Ur Amphetamines Screen (Neg) U Benzodiazepines Scrn (Neg) Urine Cocaine Screen (Neg) U Cannabinoids Screen (Neg) Serum Alcohol (0-5) mg/dL 10/04/18 10/04/18 10/04/18 Range/Units 06:01 08:44 12:26 WBC (4.0-11.0) th/mm3 RBC (4.50-5.90) mil/mm3 Hgb (13.0-17.0) gm/dL Hct (39.0-51.0) % MCV (80.0-100.0) fL MCH (27.0-34.0) pg MCHC (32.0-36.0) % RDW (11.6-17.2) % Plt Count (150-450) th/mm3 MPV (7.0-11.0) fL Neut % (Auto) (16.0-70.0) % Lymph % (Auto) (9.0-44.0) % [place] % (Auto) (0.0-8.0) % Eos % (Auto) (0.0-4.0) % Baso % (Auto) (0.0-2.0) % Neut # (Auto) (1.8-7.7) th/mm3 Lymph # (Auto) (1.0-4.8) th/mm3 [place] # (Auto) (0.0-0.9) th/mm3 Eos # (Auto) (0.0-0.4) th/mm3 Baso # (Auto) (0.0-0.2) th/mm3 WBC Differential Differential Comment Sodium 139 (136-145) meq/L Potassium 4.1 (3.5-5.1) meq/L Chloride 105 (98-107) meq/L Carbon Dioxide 28.2 (21.0-32.0) meq/L Anion Gap 6 (5-15) meq/L BUN 19 H (7-18) mg/dL Creatinine 1.14 (0.60-1.30) mg/dL Estimated GFR 66 L (>89) mL/min POC Glucose 159 H 247 H (68-110) mg/dl Random Glucose 115 H (74-106) mg/dL Hemoglobin A1c (4.3-6.0) % Lactic Acid (0.4-2.0) mmol/L Calcium 8.4 L (8.5-10.1) mg/dL Phosphorus (2.5-4.9) mg/dL Magnesium (1.5-2.5) mg/dL Total Bilirubin (0.2-1.0) mg/dL AST (15-37) U/L ALT (12-78) U/L Alkaline Phosphatase (45-117) U/L Total Creatine Kinase (39-308) U/L Total Protein (6.4-8.2) g/dL Albumin (3.4-5.0) g/dL Beta-Hydroxybutyric Acd 0.35 (0.00-0.39) mmol/L Urine Color (Yellw/Straw) Urine Clarity (Clear) Urine pH (5.0-8.5) Ur Specific [place] (1.002-1.035) Urine Protein (Neg-Trace) mg/dL Urine Glucose (UA) (Negative) mg/dL Urine Ketones (Negative) mg/dL Urine Occult Blood (Negative) Urine Nitrate (Negative) Urine Bilirubin (Negative) Urine Urobilinogen (Less than 2) mg/dL Ur Leukocyte Esterase (Negative) Urine RBC (0-3) /hpf Urine WBC (0-5) /hpf Ur Squamous Epith Cells (0-5) /hpf Hyaline Casts (0-3) /lpf Micro UA Comment Ur Microscopic Review Urine Culture Comments Urine Opiates Screen (Neg) Ur Barbiturates Screen (Neg) Ur Amphetamines Screen (Neg) U Benzodiazepines Scrn (Neg) Urine Cocaine Screen (Neg) U Cannabinoids Screen (Neg) Serum Alcohol (0-5) mg/dL Imaging Data Radiologist's impression: Head CT 10/03/18 12:41 CONCLUSION: Slight chronic small vessel ischemic and atrophic changes. . ECG Data EKG Prior to Arrival: No Attestation: I personally reviewed and interpreted this ECG as follows: Interpretation: EKG reveals normal sinus rhythm with a rate of 72. Q waves noted in lead III. Discharge Plan Discharge Disposition Patient Disposition: ED Admit(ED Internal Use Only) Discharge Condition Condition: Stable Discharge Order Discharge Orders: Discharge Order (Routine); Ordered 10/04/18 Ordered By: Austin Jimenez R1 ED Use Only Admit Order (Routine); Ordered 10/03/18 Ordered By: Awa Kee Discharge Details Discharge Comment: Patient stopped taking glipizide due to hypoglycemia. Patient to follow-up with outpatient provider within 1 week of discharge. Patient to continue seeing wound care physician with next appointment on Saturday. Diagnosis: Altered mental status, Hypoglycemia Physicians Team ED Provider: [facility] Midlevel Provider: Awa Kee Primary Care Provider: UNKNOWN, Attending Provider: Mac Ferreira Status ED Status: Left Department Discharge Information Discharge Date/Time: 10/03/18 17:20
[2018-10-03 13:08] LABS: Baso # (Auto) 0.1 th/mm3 (0.0-0.2); Baso % (Auto) 0.8 % (0.0-2.0); Eos # (Auto) 0.2 th/mm3 (0.0-0.4); Eos % (Auto) 2.8 % (0.0-4.0); Hematocrit 36.8 % (39.0-51.0); Hemoglobin 12.7 gm/dL (13.0-17.0); Lymph # (Auto) 2.9 th/mm3 (1.0-4.8); Mean Corpuscular HGB Conc 34.6 % (32.0-36.0); Mean Corpuscular Hemoglobin 32.7 pg (27.0-34.0); Mean Corpuscular Volume 94.4 fL (80.0-100.0); Mean Platelet Volume 8.5 fL (7.0-11.0); Mono # (Auto) 0.6 th/mm3 (0.0-0.9); Mono % (Auto) 7.4 % (0.0-8.0); Neut # (Auto) 3.9 th/mm3 (1.8-7.7); Platelet Count 348 th/mm3 (150-450); Red Cell Distribution Width 17.3 % (11.6-17.2); White Blood Count 7.7 th/mm3 (4.0-11.0)
[2018-10-03 13:21] LABS: Alanine Aminotransferase 14 U/L (12-78); Albumin 3.3 g/dL (3.4-5.0); Alkaline Phosphatase 130 U/L (45-117); Anion Gap 10 meq/L (5-15); Aspartate Aminotransferase 19 U/L (15-37); Blood Urea Nitrogen 22 mg/dL (7-18); Calcium 8.3 mg/dL (8.5-10.1); Carbon Dioxide 24.7 meq/L (21.0-32.0); Chloride 106 meq/L (98-107); Glomerular Filtration Rate 70 mL/min (>89); Potassium 3.9 meq/L (3.5-5.1); Sodium 141 meq/L (136-145); Total Protein 7.9 g/dL (6.4-8.2)
[2018-10-03 13:25] LABS: Alcohol 162 mg/dL (0-5); Glucose,Random 24 mg/dL (74-106)
--- NOTE | 2018-10-03 13:25 | CT ---
EXAM DATE: 10/03/2018 1:14 PM EST AGE/SEX: 57 years / Male INDICATIONS: Altered mental status. CLINICAL DATA: This is the patient's initial encounter. Patient reports that signs and symptoms have been present for 1 day and indicates a pain score of Nonresponsive. MEDICAL/SURGICAL HISTORY: Diabetes. Renal failure, acute. None. RADIATION DOSE: 41.82 CTDI (mGy) COMPARISON: [facility] – [place], CT BRAIN W/O CONTRAST, 02/24/2017. . TECHNIQUE: CT of the head without contrast. Using automated exposure control and adjustment of the mA and/or kV according to patient size, radiation dose was kept as low as reasonably achievable to ob tain optimal diagnostic quality images. DICOM format image data is available electronically for revi ew and comparison. FINDINGS: There is no evidence for intracranial hemorrhage, mass effect, mass lesions, or edema. The visualize d bony structures appear intact. Slight degree of brain atrophy is seen. Slight periventricular whit e matter changes are seen nonspecific mostly consistent with chronic small vessel ischemic changes wi th involvement of the basal ganglia worse on the right as well. There are no signs of acute infarcti on for technique. CONCLUSION: Slight chronic small vessel ischemic and atrophic changes. . Electronically signed by: Brayden Stephens MD Board Certified Radiologist 10/03/2018 1:24 PM EST
[2018-10-03 13:42] LABS: Bilirubin,Urine Negative (Negative); Clarity,Urine Clear (Clear); Color,Urine Straw (Yellw/Straw); Glucose,Urine (UA) Negative (Negative); Hyaline Casts,Urine 1 /lpf (0-3); Leukocyte Esterase,Urine Negative (Negative); Nitrite,Urine Negative (Negative); Specific Gravity,Urine 1.008 (1.002-1.035); Squamous Epithelial Cell,Urine <1 /hpf (0-5)
[2018-10-03 13:48] LABS: Amphetamine Screen,Urine Neg (Neg); Barbiturate Screen,Urine Neg (Neg); Cannabinoid Screen,Urine Neg (Neg); Cocaine Screen,Urine Neg (Neg)
[2018-10-03 13:52] LABS: Opiate Screen,Urine Neg (Neg)
[2018-10-03] MEDS ORDERED: Dextrose 5%/NaCl 0.45% Inj 1,000 ML IV.CONT SCH (14:45)
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
[2018-10-03] MEDS ORDERED: Acetaminophen 325 MG Tablet PO PRN (16:03)
[2018-10-03] MEDS ORDERED: Bisacodyl 10 MG Supp RECTAL PRN (16:03)
[2018-10-03] MEDS ORDERED: Dextrose 50% in Water 50 ML Vial IV.PUSH PRN (16:11)
[2018-10-03] MEDS ORDERED: Enoxaparin Inj 30 MG/0.3 ML Syringe SQ SCH (16:15)
[2018-10-03 16:34] LABS: Creatine Kinase 203 U/L (39-308)
[2018-10-03] MEDS ORDERED: LORazepam 1 MG Tablet PO PRN (17:00)
[2018-10-03] MEDS ORDERED: Haloperidol Inj 5 MG/ML Ampul IV.PUSH PRN (17:00)
[2018-10-03] MEDS: Insulin NovoLOG Aspart Correctional Sugar Inj SQ SCH ×2 (17:06→22:55)
[2018-10-03] MEDS: Multivitamin/Minerals Therapeutic Tablet PO SCH (19:59)
[2018-10-03] MEDS: Folic Acid 1 MG Tablet PO SCH (19:59)
[2018-10-03 20:51] LABS: Calcium 8.3 mg/dL (8.5-10.1); Carbon Dioxide 26.6 meq/L (21.0-32.0); Potassium 3.9 meq/L (3.5-5.1)
[2018-10-03] MEDS ORDERED: Pregabalin 300 MG Capsule PO SCH (21:00)
[2018-10-03 21:26] LABS: Hemoglobin A1c 6.3 % (4.3-6.0)
[2018-10-03] MEDS: Metoprolol Tartrate 50 MG Tablet PO SCH (22:55)
[2018-10-04 06:57] LABS: Calcium 8.4 mg/dL (8.5-10.1); Carbon Dioxide 28.2 meq/L (21.0-32.0); Potassium 4.1 meq/L (3.5-5.1)
[2018-10-04 06:58] LABS: Beta Hydroxybutyric Acid 0.35 mmol/L (0.00-0.39)
[2018-10-04] MEDS: Multivitamin/Minerals Therapeutic Tablet PO SCH (08:46)
[2018-10-04] MEDS: Metoprolol Tartrate 50 MG Tablet PO SCH (08:47)
[2018-10-04] MEDS: Folic Acid 1 MG Tablet PO SCH (08:47)
[2018-10-04] MEDS ORDERED: Insulin Detemir Inj 1,000 UNIT/10 ML Vial SQ SCH (09:00)
[2018-10-04] MEDS ORDERED: Escitalopram 10 MG Tablet PO SCH (09:00)
[2018-10-04] MEDS: Insulin NovoLOG Aspart Correctional Sugar Inj SQ SCH ×2 (09:40→12:58)
[2018-10-04 11:49] VITALS: BP 133/77; RESP 12; TEMP 97.9; O2SAT 96
--- NOTE | 2018-10-04 14:42 | P.PNFP ---
Subjective Interval history: Patient was seen at bedside this morning. Patient had no acute events overnight. This morning patient feels overall well and much better compared to when on admission. Patient denies any chest pain, shortness of breath, dizziness, lightheadedness, or jitteriness. Plan to discontinue patient sulfonylurea continue him on his metformin and sitagliptin were discussed. Was also discussed at length patient's history of falls as well as patient's follow- up appointment on Saturday with his wound care doctor due to his sacral wounds. Patient reports that he understood the instructions for his medications and that he had an appointment on Saturday with wound care that he has been following for quite some time now. Patient reports having good follow-up and going home with home health. Patient reported understanding, had no further questions, and thanked us for our care. <Austin Torres O - 10/04/18 14:42> Results - Labs Result diagrams: 10/03/18 12:44 10/04/18 06:01 <Mac Ferreira L - 10/04/18 14:57> Abnormal lab results 10/03/18 10/03/18 10/03/18 Range/Units 12:44 12:44 15:05 Sodium (136-145) meq/L BUN 22 H (7-18) mg/dL Estimated GFR 70 L (>89) mL/min POC Glucose 122 H (68-110) mg/dl Random Glucose 24 L* (74-106) mg/dL Hemoglobin A1c 6.3 H (4.3-6.0) % Calcium 8.3 L (8.5-10.1) mg/dL Alkaline Phosphatase 130 H (45-117) U/L Albumin 3.3 L (3.4-5.0) g/dL Serum Alcohol 162 H (0-5) mg/dL 10/03/18 10/03/18 10/03/18 Range/Units 16:10 16:51 18:01 Sodium (136-145) meq/L BUN (7-18) mg/dL Estimated GFR (>89) mL/min POC Glucose 168 H 243 H 187 H (68-110) mg/dl Random Glucose (74-106) mg/dL Hemoglobin A1c (4.3-6.0) % Calcium (8.5-10.1) mg/dL Alkaline Phosphatase (45-117) U/L Albumin (3.4-5.0) g/dL Serum Alcohol (0-5) mg/dL 10/03/18 10/03/18 10/04/18 Range/Units 20:13 22:59 06:01 Sodium 135 L (136-145) meq/L BUN 23 H 19 H (7-18) mg/dL Estimated GFR 61 L 66 L (>89) mL/min POC Glucose 157 H (68-110) mg/dl Random Glucose 174 H D 115 H (74-106) mg/dL Hemoglobin A1c (4.3-6.0) % Calcium 8.3 L 8.4 L (8.5-10.1) mg/dL Alkaline Phosphatase (45-117) U/L Albumin (3.4-5.0) g/dL Serum Alcohol (0-5) mg/dL 10/04/18 10/04/18 Range/Units 08:44 12:26 Sodium (136-145) meq/L BUN (7-18) mg/dL Estimated GFR (>89) mL/min POC Glucose 159 H 247 H (68-110) mg/dl Random Glucose (74-106) mg/dL Hemoglobin A1c (4.3-6.0) % Calcium (8.5-10.1) mg/dL Alkaline Phosphatase (45-117) U/L Albumin (3.4-5.0) g/dL Serum Alcohol (0-5) mg/dL BMP 10/03/18 10/03/18 10/03/18 12:44 20:13 20:13 Sodium 141 Cancelled 135 L Potassium 3.9 Cancelled 3.9 Chloride 106 Cancelled 102 Carbon Dioxide 24.7 Cancelled 26.6 BUN 22 H Cancelled 23 H Creatinine 1.09 Cancelled 1.23 Calcium 8.3 L Cancelled 8.3 L 10/04/18 06:01 Sodium 139 Potassium 4.1 Chloride 105 Carbon Dioxide 28.2 BUN 19 H Creatinine 1.14 Calcium 8.4 L Cardiac Enzymes 10/03/18 10/03/18 Range/Units 12:44 12:44 Total Creatine Kinase 203 Cancelled (39-308) U/L Liver Function 10/03/18 Range/Units 12:44 Total Bilirubin 0.3 (0.2-1.0) mg/dL AST 19 (15-37) U/L ALT 14 (12-78) U/L Alkaline Phosphatase 130 H (45-117) U/L Albumin 3.3 L (3.4-5.0) g/dL <Mac Ferreira L - 10/04/18 14:57> Abnormal lab results 10/03/18 10/03/18 10/03/18 Range/Units 12:44 12:44 15:05 Sodium (136-145) meq/L BUN 22 H (7-18) mg/dL Estimated GFR 70 L (>89) mL/min POC Glucose 122 H (68-110) mg/dl Random Glucose 24 L* (74-106) mg/dL Hemoglobin A1c 6.3 H (4.3-6.0) % Calcium 8.3 L (8.5-10.1) mg/dL Alkaline Phosphatase 130 H (45-117) U/L Albumin 3.3 L (3.4-5.0) g/dL Serum Alcohol 162 H (0-5) mg/dL 10/03/18 10/03/18 10/03/18 Range/Units 16:10 16:51 18:01 Sodium (136-145) meq/L BUN (7-18) mg/dL Estimated GFR (>89) mL/min POC Glucose 168 H 243 H 187 H (68-110) mg/dl Random Glucose (74-106) mg/dL Hemoglobin A1c (4.3-6.0) % Calcium (8.5-10.1) mg/dL Alkaline Phosphatase (45-117) U/L Albumin (3.4-5.0) g/dL Serum Alcohol (0-5) mg/dL 10/03/18 10/03/18 10/04/18 Range/Units 20:13 22:59 06:01 Sodium 135 L (136-145) meq/L BUN 23 H 19 H (7-18) mg/dL Estimated GFR 61 L 66 L (>89) mL/min POC Glucose 157 H (68-110) mg/dl Random Glucose 174 H D 115 H (74-106) mg/dL Hemoglobin A1c (4.3-6.0) % Calcium 8.3 L 8.4 L (8.5-10.1) mg/dL Alkaline Phosphatase (45-117) U/L Albumin (3.4-5.0) g/dL Serum Alcohol (0-5) mg/dL 10/04/18 10/04/18 Range/Units 08:44 12:26 Sodium (136-145) meq/L BUN (7-18) mg/dL Estimated GFR (>89) mL/min POC Glucose 159 H 247 H (68-110) mg/dl Random Glucose (74-106) mg/dL Hemoglobin A1c (4.3-6.0) % Calcium (8.5-10.1) mg/dL Alkaline Phosphatase (45-117) U/L Albumin (3.4-5.0) g/dL Serum Alcohol (0-5) mg/dL BMP 10/03/18 10/03/18 10/03/18 12:44 20:13 20:13 Sodium 141 Cancelled 135 L Potassium 3.9 Cancelled 3.9 Chloride 106 Cancelled 102 Carbon Dioxide 24.7 Cancelled 26.6 BUN 22 H Cancelled 23 H Creatinine 1.09 Cancelled 1.23 Calcium 8.3 L Cancelled 8.3 L 10/04/18 06:01 Sodium 139 Potassium 4.1 Chloride 105 Carbon Dioxide 28.2 BUN 19 H Creatinine 1.14 Calcium 8.4 L Cardiac Enzymes 10/03/18 10/03/18 Range/Units 12:44 12:44 Total Creatine Kinase 203 Cancelled (39-308) U/L Liver Function 10/03/18 Range/Units 12:44 Total Bilirubin 0.3 (0.2-1.0) mg/dL AST 19 (15-37) U/L ALT 14 (12-78) U/L Alkaline Phosphatase 130 H (45-117) U/L Albumin 3.3 L (3.4-5.0) g/dL <Austin Torres O - 10/04/18 14:42> Physical Exam Vital signs: Vital Signs 10/03/18 16:17 10/03/18 20:00 10/04/18 00:00 Temperature 98.1 F 97.6 F Pulse Rate 80 85 66 Respiratory Rate 17 16 16 Blood Pressure 147/81 H 145/86 H 138/81 Pulse Oximetry 96 96 10/04/18 04:00 10/04/18 07:00 10/04/18 08:00 Temperature 97.6 F 97.8 F Pulse Rate 66 66 74 Respiratory Rate 16 16 Blood Pressure 138/81 142/87 H Pulse Oximetry 96 95 10/04/18 11:47 Temperature 97.9 F Pulse Rate 64 Respiratory Rate 12 Blood Pressure 133/77 Pulse Oximetry 96 Intake & Output 10/03/18 10/04/18 10/04/18 18:59 06:59 18:59 Intake Total 600 / 600 Balance 600 / 600 Weight 90 kg 98.8 kg Intake: IV 200 / 200 D5W/1/2 NS Inj 1,000 ML @ 100 200 / 200 mls/hr IV.CONT .Q10H [facility] Rx#: [id number] Oral 400 / 400 Other: # Voids 3 Weight On Admission 90 kg <Mac Ferreira L - 10/04/18 14:57> Vital Signs 10/03/18 16:17 10/03/18 20:00 10/04/18 00:00 Temperature 98.1 F 97.6 F Pulse Rate 80 85 66 Respiratory Rate 17 16 16 Blood Pressure 147/81 H 145/86 H 138/81 Pulse Oximetry 96 96 10/04/18 04:00 10/04/18 08:00 10/04/18 11:47 Temperature 97.6 F 97.8 F 97.9 F Pulse Rate 66 74 64 Respiratory Rate 16 16 12 Blood Pressure 138/81 142/87 H 133/77 Pulse Oximetry 96 95 96 Intake & Output 10/03/18 10/04/18 10/04/18 18:59 06:59 18:59 Intake Total 600 / 600 Balance 600 / 600 Weight 90 kg 98.8 kg Intake: IV 200 / 200 D5W/1/2 NS Inj 1,000 ML @ 100 200 / 200 mls/hr IV.CONT .Q10H [facility] Rx#: [id number] Oral 400 / 400 Other: # Voids 3 Weight On Admission 90 kg <Austin Torres O - 10/04/18 14:42> Narrative: GENERAL: Disheveled white male sitting comfortably in no acute distress. Is AO x3 and able to answer questions slowly but without effort. SKIN: Warm and dry. Scaly rash w/erythematous base noted on the chest and the lower legs. 1 cm deep and 1 cm wide stage 3 sacral decubitus ulcer. Ulcer at the left foot lateral to the 5th toe noted. Both ulcers show a clean base w/ formation of granulation tissue. No signs of infection or drainage. HEAD: Atraumatic. Normocephalic. EYES: Pupils equal and round. No scleral icterus. No injection or drainage. ENT: No nasal bleeding or discharge. NECK: Trachea midline. No JVD. CARDIOVASCULAR: Regular rate and rhythm. RESPIRATORY: No accessory muscle use. Clear to auscultation. Breath sounds equal bilaterally. GASTROINTESTINAL: Abdomen soft, non-tender, nondistended. Hepatic and splenic margins not palpable. MUSCULOSKELETAL: Mild non pitting edema of the lower extremities. Poor hygiene, nail infection seen at the feet. NEUROLOGICAL: Awake and alert. No obvious cranial nerve deficits aside from slow speech. PSYCHIATRIC: Appropriate mood and affect. <Tony HuttonAustin O - 10/04/18 14:42> Assessment and Plan - Assessment (1) Hypoglycemia Code(s): E16.2 - Hypoglycemia, unspecified Status: Acute (2) DM2 (diabetes mellitus, type 2) Code(s): E11.9 - Type 2 diabetes mellitus without complications Status: Acute (3) Sacral ulcer Code(s): L98.429 - Non-pressure chronic ulcer of back with unspecified severity Status: Acute (4) Foot ulcer, left Code(s): L97.529 - Non-pressure chronic ulcer of other part of left foot with unspecified severity Status: Acute (5) HTN (hypertension) Code(s): I10 - Essential (primary) hypertension Status: Acute (6) Insomnia Code(s): G47.00 - Insomnia, unspecified Status: Acute (7) Depression Code(s): F32.9 - Major depressive disorder, single episode, unspecified Status : Acute (8) Arthritis Code(s): M19.90 - Unspecified osteoarthritis, unspecified site Status: Acute <Mac Ferreira - 10/04/18 14:57> (1) Hypoglycemia Code(s): E16.2 - Hypoglycemia, unspecified Status: Acute Plan: Resolved after administration of dextrose w/glucose at 122 . Placed on fluids w/ D5 and 1/2 NS Likely 2/2 to medication -Blood glucose elevated at 247 -A1c at goal 6.3 -C-peptide still pending -Potassium within normal limits -Discontinue glipizide -Continue sitagliptin and metformin (2) DM2 (diabetes mellitus, type 2) Code(s): E11.9 - Type 2 diabetes mellitus without complications Status: Acute Plan: See plan above for hypoglycemia (3) Sacral ulcer Code(s): L98.429 - Non-pressure chronic ulcer of back with unspecified severity Status: Acute Plan: Patient has had sacral ulcer for quite some time now and follows up with outpatient wound physician. Next appointment this Saturday. Patient does have home health that visits 3 times a week and helps with his wound care. -Follow-up with outpatient wound care (4) Foot ulcer, left Code(s): L97.529 - Non-pressure chronic ulcer of other part of left foot with unspecified severity Status: Acute Plan: See plan above for sacral ulcer/wound (5) HTN (hypertension) Code(s): I10 - Essential (primary) hypertension Status: Acute Plan: Metoprolol 50 mg BID continued (home med) (6) Insomnia Code(s): G47.00 - Insomnia, unspecified Status: Acute Plan: home meds con't (7) Depression Code(s): F32.9 - Major depressive disorder, single episode, unspecified Status : Acute Plan: home meds con't (8) Arthritis Code(s): M19.90 - Unspecified osteoarthritis, unspecified site Status: Acute Plan: Mainly back and legs. Oxycodone 10 mg TID (home) continued Other meds continued: insomnia - seroquel 400 mg PO HS depression - lexapro 10 mg daily Fluids: None indicated at this time Electrolytes: PRN Nutrition: diabetic DVT prophy: Lovenox 30 mg daily FULL code <Tony Austin Hutton O - 10/04/18 14:33> - Attending Attestation The exam, history, and the medical decision-making described in the above note were completed with the assistance of the resident physician. I reviewed and agree with the findings presented. I attest that I had a [id number] encounter with the patient on the same day, and personally performed and documented my assessment and findings in the medical record. Patient seen with Dr. Jimenez and Dr. Deal this morning. He is feeling well this morning. Discussed discharge plan, including discontinuing his sulfonylurea as his diabetes is well under target. Also discussed his alcohol use and how that helps precipitate hypoglycemia. Discussed hypoglycemia precautions to take. He has chronic ulcers (sacrum, left lateral foot, right base of foot) but these are being followed outpatient by wound care and home health. He has good pulses in his feet. <Mac Ferreira - 10/04/18 14:57>
[2018-10-04 14:43] VITALS: PULSE 64
--- NOTE | 2018-10-04 16:42 | ECG ---
Date Performed: 10/03/2018 Time Performed: 14:09:03 PTAGE: 57 years EKG: Sinus rhythm NORMAL ECG Compared to PREVIOUS TRACING , heart rate is slower otherwise no significant change PREVIOUS TRACIN02/24/2017 18.29 DOCTOR: Elmer Pierce Interpretating Date/Time 10/04/2018 16:41:34
== END 2018-10-04 14:30 | disposition home health service (06) ==
LOC: NEDA 12:24 → NEPD 12:24 → NEPHCDU 17:15
PROVIDERS: ADMIT Family Medicine; ATTEND Family Medicine
DX: L97.529 Non-pressure chronic ulcer of other part of left foot with unspecified severity; G62.9 Polyneuropathy, unspecified; L98.429 Non-pressure chronic ulcer of back with unspecified severity; M19.90 Unspecified osteoarthritis, unspecified site; F17.210 Nicotine dependence, cigarettes, uncomplicated; I10 Essential (primary) hypertension; E11.622 Type 2 diabetes mellitus with other skin ulcer; E11.649 Type 2 diabetes mellitus with hypoglycemia without coma; Z79.899 Other long term (current) drug therapy; Z82.49 Family history of ischemic heart disease and other diseases of the circulatory system; F10.10 Alcohol abuse, uncomplicated; G47.00 Insomnia, unspecified; Z90.81 Acquired absence of spleen; K20.9 Esophagitis, unspecified; F32.9 Major depressive disorder, single episode, unspecified; M81.0 Age-related osteoporosis without current pathological fracture; Z91.81 History of falling; L97.519 Non-pressure chronic ulcer of other part of right foot with unspecified severity; E11.621 Type 2 diabetes mellitus with foot ulcer
CPT/HCPCS: 70450; 80048; 80053; 80307; 81001; 82010; 82550; 82948; 82962; 83036; 83605; 83735; 84100; 84681; 85025; 90765; 90775; 93005; 96365; 96366; 96372; 96375; 99285; G0378; J1650; J1815